=== PATIENT | female | born 1975 | race Caucasian/White ===

== ENCOUNTER 2017-04-27 16:43 | Inpatient (IN) | payer MEDICARE, OTHER ==
[~2017-04-27] VITALS: Ht 172.7 cm; Wt 43.2 kg
[~2017-04-27 16:43] MED LIST: LEVO750T31 PO; PHEN100T82 PO
[2017-04-27 20:00] VITALS: BP 110/78
[2017-04-27 23:00] VITALS: BP 111/79
[2017-04-27] MEDS ORDERED: ALPR0.5T PO (23:13)
[2017-04-27] MEDS ORDERED: BACL20TA PO (23:16)
[2017-04-27] MEDS ORDERED: DIME240C PO (23:16)
[2017-04-27] MEDS ORDERED: GENT100P4 IV (23:16)
[2017-04-27] MEDS ORDERED: [UNRECOGNIZED DRUG - CODE] SQ (23:17)
[2017-04-27] MEDS ORDERED: LORA10TA3 PO (23:21)
[2017-04-27] MEDS ORDERED: levaquin IV (23:21)
[2017-04-27] MEDS ORDERED: PRED1TAB3 PO (23:21)
[2017-04-27] MEDS ORDERED: TOLT2CAP PO (23:21)
[2017-04-27] MEDS ORDERED: ENOXAPARIN 40 MG/0.4 ML SYRINGE. SQ SCH (23:45)
[2017-04-27] MEDS ORDERED: ZOLPIDEM 5 MG TABLET. PO PRN (23:45)
[2017-04-27] MEDS ORDERED: MAG HYDROX/ALUMINUM HYD/SIMETH 30 ML ORAL.SUSP PO PRN (23:45)
[2017-04-27] MEDS ORDERED: PROCHLORPERAZINE 10 MG/2 ML VIAL. IV PRN (23:45)
--- NOTE | 2017-04-28 01:09 | HP ---
ADMIT DATE: 04/27/2017 CHIEF COMPLAINT: Complicated urinary tract infection, decubitus ulcers. HISTORY OF PRESENT ILLNESS: The patient is a 41-year-old woman with chronic progressive MS and indwelling Shafer catheter who was found with UTI last week with both Citrobacter and Enterobacter and was started on antibiotics. Unfortunately, the UTI was accompanied by a urinary leak around her Shafer causing decubitus ulcers especially in conjunction with temporary diarrhea. She now has significant ulcers for which she has been transferred to [facility] for further wound care. Her catheter was actually changed on Wednesday, when she presented to [facility]. Typically, she has monthly Shafer catheter changes. She is interested in obtaining a suprapubic catheter to facilitate her mobility somewhat. PAST MEDICAL HISTORY: Multiple sclerosis x 8 years, indwelling Shafer catheter with frequent UTIs, heterozygous Factor V Leiden mutation. FAMILY HISTORY: Positive for factor V Leiden on her paternal side. SOCIAL HISTORY: Lives with her common-law . She has two teenage children of 14 and 17. Son who is typically taking care of her is currently absent. Smokes tobacco about half a pack a day. Denies any alcohol or drugs. ALLERGIES: No known drug allergies. MEDICATIONS: MAR reconciled with home medications. REVIEW OF SYSTEMS: Positive for dysuria and leakage around the Shafer prior to admission to [facility]. Symptoms are now better controlled. Denies any pain. Does have decubitus ulcers, which are currently covered. Denies any other new issues. PHYSICAL EXAMINATION: VITAL SIGNS: From today show a blood pressure of 111/79, heart rate of 74, respiratory rate at 16. She is afebrile. GENERAL: This is a cachectic 41-year-old woman, awake, alert, in no acute distress. HEENT: Shows no scleral icterus. Oral mucosa is pink and moist. Dentition very poor. NECK: Supple. LUNGS: Clear bilaterally. HEART: Regular rate and rhythm. ABDOMEN: Cachectic, positive bowel sounds. EXTREMITIES: Show no edema. Large coccyx ulcer covered with Tegaderm. LABORATORY DATA: CBC with a WBC of 11.1, hemoglobin of 12.1, platelets of 335, BUN and creatinine of 15 and 0.6. Electrolytes within normal limits. LFTs normal. ASSESSMENT AND PLAN: The patient is a 41-year-old woman with multiple sclerosis, malnutrition, chronic indwelling Shafer with recurrent urinary tract infections and now relatively no pressure ulcers. She has been transferred here to receive wound care. A consult with wound team has been obtained. For her urinary tract infection, she had been started on Levaquin as well as gentamicin. We will obtain ID consult. Continue medications for the time being. We will have to get the final culture report and sensitivity from [facility] as well. For multiple sclerosis, she will be continued on baclofen p.r.n. She also takes ___ 250 mg b.i.d. We will continue medications here. The patient has a factor V Leiden for which she actually has never been on any medications. She does not have a personal history of DVT and with her chronic inactivity, I do not believe her risk is necessarily higher than normal population. However, in the settings of any surgeries or interventions, she should be cautiously anticoagulated. She has DVT prophylaxis with Lovenox for now. The patient also has Xanax and Cymbalta for depression and anxiety. We will continue the medications here. CAREY HERRERA MD DR: SAM/ronit JOB#: [id number] / [id number] ESTEBAN
[2017-04-28] MEDS: POTASSIUM CL 20MEQ-0.45% NACL 1,000 ML IV SCH ×2 (01:24→21:40)
[2017-04-28] MEDS: oxyCODONE IR 5 MG TABLET PO PRN (01:25)
[2017-04-28] MEDS: ENOXAPARIN 30 MG/0.3 ML SYRINGE. SQ SCH ×4 (01:25→21:10)
[2017-04-28 03:00] VITALS: BP 104/68
[2017-04-28 07:00] VITALS: BP 112/70
[2017-04-28 07:43] LABS: BASO # 0.1 x10^3/uL (0.0-0.2); BASO % 1 % (0-3); EOS % 1 % (0-3); HEMATOCRIT 36.3 % (36.0-47.0); HEMOGLOBIN 11.6 g/dL (12.0-15.5); LYMPH # 1.3 x10^3/uL (1.0-4.8); LYMPH % 14 % (24-48); MEAN CORPUSCULAR HEMOGLOBIN 24 pg (25-35); MEAN CORPUSCULAR HGB CONC 32 g/dL (31-37); MEAN CORPUSCULAR VOLUME 75 fL (79-100); MONO % 7 % (0-9); NEUT % 78 % (31-73); PLATELET COUNT 289 x10^3/uL (140-400); RED BLOOD COUNT 4.81 x10^6/uL (3.50-5.40); RED CELL DISTRIBUTION WIDTH 18.4 % (11.5-14.5); WHITE BLOOD COUNT 9.5 x10^3/uL (4.0-11.0)
[2017-04-28 08:09] LABS: ALBUMIN 2.9 g/dL (3.4-5.0); ALBUMIN/GLOBULIN RATIO 0.8 (1.0-1.7); CALCIUM 8.3 mg/dL (8.5-10.1); CREATININE 0.5 mg/dL (0.6-1.0); GFR 134.7; POTASSIUM 3.5 mmol/L (3.5-5.1); TOTAL BILIRUBIN 0.2 mg/dL (0.2-1.0); TOTAL PROTEIN 6.4 g/dL (6.4-8.2)
[2017-04-28] MEDS ORDERED: [UNRECOGNIZED DRUG - OTHER] IV SCH (09:00)
[2017-04-28] MEDS ORDERED: SODIUM CHLORIDE IV SCH (09:00)
[2017-04-28] MEDS ORDERED: GENTAMICIN IV SCH (09:00)
[2017-04-28] MEDS: NON FORMULARY ITEM (Dimethyl Fumarate (Tecfidera) 240 MG) PO SCH ×2 (09:45→21:40)
[2017-04-28] MEDS: GENTAMICIN SULFATE 320 MG in IV NORMAL SALINE 100ML 100 ML IV SCH (09:46)
[2017-04-28] MEDS: OXYBUTYNIN CHLORIDE 5 MG TABLET PO SCH ×2 (09:46→21:08)
[2017-04-28] MEDS: SENNOSIDES/DOCUSATE 8.6/50MG TABLET. PO SCH (09:47)
[2017-04-28] MEDS: predniSONE 1 MG TABLET PO SCH (09:47)
[2017-04-28] MEDS: CETIRIZINE HCL 10 MG TABLET. PO SCH (09:47)
[2017-04-28] MEDS: BACLOFEN 10 MG TABLET. PO SCH ×3 (09:47→21:08)
[2017-04-28] MEDS: ALPRAZolam 0.5 MG TABLET PO SCH ×2 (09:48→21:08)
--- NOTE | 2017-04-28 10:53 | PDOC ---
PROGRESS NOTES Chief Complaint Chief Complaint Complicated UTI Decubitus ulcers ASSESSMENT AND PLAN: 1. UTI: Klebsiella, Enterobacter by verbal report from [facility]; awaiting final report. cont Abx (levaquin, gent) for now. ID consult pending 2. Chronic indwelling Shafer: pt wishes eval for suprapubic cath. consult to Dr Bishop when he returns 3. Decubiti: 2/2 immobility and UTI/Shafer leakage. wound care consult 4. MS: chronic progressive; contunue home meds 5. Factor V Leiden trait: never had DVT/PE. lovenox prophylaxis 6. malnutrition: severe. nutrition consult 7. Depression: cont home Cymbalta, Xanax History of Present Illness History of Present Illness feels ok this AM, poor sleep last night Vitals Vitals Vital Signs Date Time Temp Pulse Resp B/P (MAP) Pulse Ox O2 Delivery O2 Flow Rate FiO2 04/28/17 07:00 98.3 89 20 112/70 (84) 83 Room Air 98.3 Physical Exam General: Alert, Oriented X3, Cooperative, No acute distress Heart: Regular rate Lungs: Clear Abdomen: Normal bowel sounds, No tenderness Extremities: No edema, Other (+clubbing) Skin: Other (sacral decub) Labs LABS Laboratory Tests Test 04/28/17 07:05 White Blood Count 9.5 x10^3/uL (4.0-11.0) Red Blood Count 4.81 x10^6/uL (3.50-5.40) Hemoglobin 11.6 g/dL (12.0-15.5) Hematocrit 36.3 % (36.0-47.0) Mean Corpuscular Volume 75 fL (79-100) Mean Corpuscular Hemoglobin 24 pg (25-35) Mean Corpuscular Hemoglobin Concent 32 g/dL (31-37) Red Cell Distribution Width 18.4 % (11.5-14.5) Platelet Count 289 x10^3/uL (140-400) Neutrophils (%) (Auto) 78 % (31-73) Lymphocytes (%) (Auto) 14 % (24-48) Monocytes (%) (Auto) 7 % (0-9) Eosinophils (%) (Auto) 1 % (0-3) Basophils (%) (Auto) 1 % (0-3) Neutrophils # (Auto) 7.4 x10^3uL (1.8-7.7) Lymphocytes # (Auto) 1.3 x10^3/uL (1.0-4.8) Monocytes # (Auto) 0.7 x10^3/uL (0.0-1.1) Eosinophils # (Auto) 0.1 x10^3/uL (0.0-0.7) Basophils # (Auto) 0.1 x10^3/uL (0.0-0.2) Sodium Level 142 mmol/L (136-145) Potassium Level 3.5 mmol/L (3.5-5.1) Chloride Level 107 mmol/L (98-107) Carbon Dioxide Level 28 mmol/L (21-32) Anion Gap 7 (6-14) Blood Urea Nitrogen 9 mg/dL (7-20) Creatinine 0.5 mg/dL (0.6-1.0) Estimated GFR (Cockcroft-Gault) 134.7 BUN/Creatinine Ratio 18 (6-20) Glucose Level 75 mg/dL (70-99) Calcium Level 8.3 mg/dL (8.5-10.1) Total Bilirubin 0.2 mg/dL (0.2-1.0) Aspartate Amino Transf (AST/SGOT) 12 U/L (15-37) Alanine Aminotransferase (ALT/SGPT) 13 U/L (14-59) Alkaline Phosphatase 45 U/L (46-116) Total Protein 6.4 g/dL (6.4-8.2) Albumin 2.9 g/dL (3.4-5.0) Albumin/Globulin Ratio 0.8 (1.0-1.7) CAREY HERRERA MD Apr 28, 2017 10:53
[2017-04-28 11:00] VITALS: BP 120/77
[2017-04-28 15:00] VITALS: BP 106/64
[2017-04-28 19:00] VITALS: BP 93/67
--- NOTE | 2017-04-28 19:23 | ACF ---
Admission Forms Criteria URINARY COMPLICATIONS Clinical Indications for Inpatient Care (Place 'X' for any and all applicable criteria): Ongoing inpatient care may be indicated for urinary complications with ANY ONE of the following: [X]I. Urinary tract infection requiring inpatient care as indicated by ANY ONE of the following(8)(19)(20): [ ]a) Severe symptoms (eg, high fever, severe pain) [ ]b) Vomiting or dehydration requiring ongoing inpatient care [X]c) IV antibiotic needs that cannot be managed at lower level of care [ ]d) Hemodynamic instability [ ]e) Obstruction of collecting system by stone or tumor [ ]II. Urinary retention requiring drainage or surgery (3)(4)(5)(17)(18) [ ]III. Renal failure (Use Renal Failure Criteria for further information.) [ ]IV. Oliguria(30) [ ]V. Post obstructive diuresis requiring close monitoring of urine output and intravenous compensation for excessive fluid losses(33) Extended stay beyond goal length of stay for primary condition may be needed until ALL of the following are present(3)(4)(5)(8): [ ]a) Renal function (creatinine) at baseline, or daily decreases in creatinine consistent with renal function return [ ]b) Voiding adequately or with urinary catheter or percutaneous suprapubic tube and management regimen in place that is performable at lower level of care. [ ]c) Urine output adequate [ ]d) Fever absent or resolving [ ]e) Infection absent or treatable at next level of care The original [employer] content created by [employer] has been revised. The portions of the content which have been revised are identified through the use of italic text or in bold, and [facility] has neither reviewed nor approved the modified material. All other unmodified content is copyright [facility] Please see references footnoted in the original [facility] edition 2016 Admission Criteria Met?: Yes YAIR BURGOS Apr 28, 2017 19:23 CAREY HERRERA MD Apr 30, 2017 17:31
[2017-04-28 23:00] VITALS: BP 88/58
[2017-04-29 03:00] VITALS: BP 97/67
[2017-04-29 07:00] VITALS: BP 110/73
[2017-04-29] MEDS: CETIRIZINE HCL 10 MG TABLET. PO SCH (09:00)
[2017-04-29] MEDS: BACLOFEN 10 MG TABLET. PO SCH ×3 (09:21→20:12)
[2017-04-29] MEDS: ALPRAZolam 0.5 MG TABLET PO SCH ×2 (09:21→20:12)
[2017-04-29] MEDS: GENTAMICIN SULFATE 320 MG in IV NORMAL SALINE 100ML 100 ML IV SCH (09:21)
[2017-04-29] MEDS: predniSONE 1 MG TABLET PO SCH (09:21)
[2017-04-29] MEDS: OXYBUTYNIN CHLORIDE 5 MG TABLET PO SCH ×2 (09:22→20:12)
[2017-04-29] MEDS: SENNOSIDES/DOCUSATE 8.6/50MG TABLET. PO SCH (09:22)
[2017-04-29] MEDS: NON FORMULARY ITEM (Dimethyl Fumarate (Tecfidera) 240 MG) PO SCH ×2 (09:28→22:13)
[2017-04-29 11:00] VITALS: BP 83/59
[2017-04-29] MEDS ORDERED: GENTAMICIN RANDOM LEVEL. MC ONE ×2 (13:45→21:00)
[2017-04-29] MEDS: GENTAMICIN PER PHARMACY. MC PRN (13:46)
[2017-04-29 15:00] VITALS: BP 106/72
--- NOTE | 2017-04-29 16:36 | PDOC ---
PROGRESS NOTES Chief Complaint Chief Complaint Complicated UTI Decubitus ulcers ASSESSMENT AND PLAN: 1. UTI: Klebsiella, Enterobacter by verbal report from [facility]; awaiting final report. cont Abx (levaquin, gent) for now. ID consult pending 2. Chronic indwelling Shafer: pt wishes eval for suprapubic cath. consult to Dr Bishop 3. Decubiti: 2/2 immobility and UTI/Shafer leakage. wound care consult pending ! 4. MS: chronic progressive; contunue home meds 5. Factor V Leiden trait: never had DVT/PE. lovenox prophylaxis 6. Malnutrition: severe. nutrition consult. supplements 7. Depression: cont home Cymbalta, Xanax History of Present Illness History of Present Illness feels better, good appetite and po intake Vitals Vitals Vital Signs Date Time Temp Pulse Resp B/P (MAP) Pulse Ox O2 Delivery O2 Flow Rate FiO2 04/29/17 15:00 97.5 71 18 106/72 (83) 96 Room Air 97.5 Physical Exam General: Alert, Oriented X3, Cooperative, No acute distress Heart: Regular rate Lungs: Clear Abdomen: Normal bowel sounds, No tenderness Extremities: No edema, Other (+clubbing) Skin: Other (sacral decub) Comment Review of Relevant I have reviewed the following items lupe (where applicable) has been applied. Labs Laboratory Tests Test 04/28/17 07:05 04/28/17 10:15 White Blood Count 9.5 x10^3/uL (4.0-11.0) Red Blood Count 4.81 x10^6/uL (3.50-5.40) Hemoglobin 11.6 g/dL (12.0-15.5) Hematocrit 36.3 % (36.0-47.0) Mean Corpuscular Volume 75 fL (79-100) Mean Corpuscular Hemoglobin 24 pg (25-35) Mean Corpuscular Hemoglobin Concent 32 g/dL (31-37) Red Cell Distribution Width 18.4 % (11.5-14.5) Platelet Count 289 x10^3/uL (140-400) Neutrophils (%) (Auto) 78 % (31-73) Lymphocytes (%) (Auto) 14 % (24-48) Monocytes (%) (Auto) 7 % (0-9) Eosinophils (%) (Auto) 1 % (0-3) Basophils (%) (Auto) 1 % (0-3) Neutrophils # (Auto) 7.4 x10^3uL (1.8-7.7) Lymphocytes # (Auto) 1.3 x10^3/uL (1.0-4.8) Monocytes # (Auto) 0.7 x10^3/uL (0.0-1.1) Eosinophils # (Auto) 0.1 x10^3/uL (0.0-0.7) Basophils # (Auto) 0.1 x10^3/uL (0.0-0.2) Sodium Level 142 mmol/L (136-145) Potassium Level 3.5 mmol/L (3.5-5.1) Chloride Level 107 mmol/L (98-107) Carbon Dioxide Level 28 mmol/L (21-32) Anion Gap 7 (6-14) Blood Urea Nitrogen 9 mg/dL (7-20) Creatinine 0.5 mg/dL (0.6-1.0) Estimated GFR (Cockcroft-Gault) 134.7 BUN/Creatinine Ratio 18 (6-20) Glucose Level 75 mg/dL (70-99) Calcium Level 8.3 mg/dL (8.5-10.1) Total Bilirubin 0.2 mg/dL (0.2-1.0) Aspartate Amino Transf (AST/SGOT) 12 U/L (15-37) Alanine Aminotransferase (ALT/SGPT) 13 U/L (14-59) Alkaline Phosphatase 45 U/L (46-116) Total Protein 6.4 g/dL (6.4-8.2) Albumin 2.9 g/dL (3.4-5.0) Albumin/Globulin Ratio 0.8 (1.0-1.7) Nasal Screen MRSA (PCR) Negative (Negative) Microbiology 04/28/17 Gram Stain - Final, Complete Medications Current Medications Potassium Chloride/Sodium Chloride 1,000 ml @ 50 mls/hr Q20H IV Last administered on 04/28/17t 21:40; Start 04/28/17 at 00:00 Prochlorperazine Edisylate (Compazine) 10 mg PRN Q8HRS PRN IV NAUSEA/VOMITING; Start 04/27/17 at 23:45 Al Hydroxide/Mg Hydroxide (Mylanta Plus Xs) 30 ml PRN Q3HRS PRN PO HEARTBURN / GAS; Start 04/27/17 at 23:45 Zolpidem Tartrate (Ambien) 5 mg PRN QHS PRN PO INSOMNIA, MAY REPEAT IN 1HR; Start 04/27/17 at 23:45 Oxycodone HCl (Roxicodone) 5 mg PRN Q4HRS PRN PO SEVERE PAIN Last administered on 04/28/17 01:25; Start 04/27/17 at 23:45 Senna/Docusate Sodium (Senna Plus) 2 tab DAILY PO Last administered on 09:22; Start 04/28/17 at 09:00 Enoxaparin Sodium (Lovenox 40mg Syringe) 30 mg Q24H SQ ; Start 04/27/17 at 23:45 ; Status UNV Alprazolam (Xanax) 0.5 mg BID PO Last administered on 04/29/17 09:21; Start at 09:00 Levofloxacin (Levaquin) 750 mg DAILY07 PO Last administered on 04/29/17 06:31 ; Start 04/28/17 at 07:00 Prednisone (Prednisone) 1 mg DAILY PO Last administered on 04/29/17 09:21; Start 04/28/17 at 09:00 Baclofen (Lioresal) 20 mg TID PO Last administered on 04/29/17 14:09; Start at 09:00 Non-Formulary Medication 240 mg BID PO Last administered on 04/29/17 09:28; Start 04/28/17 at 09:00 Non-Formulary Medication 320 mg DAILY IV ; Start 04/28/17 at 09:00; Status UNV Cetirizine HCl (ZyrTEC) 10 mg DAILY PO Last administered on 04/28/17 09:47; Start 04/28/17 at 09:00 Oxybutynin Chloride (Ditropan) 5 mg BID PO Last administered on 04/29/17 09:22 ; Start 04/28/17 at 09:00 Enoxaparin Sodium (Lovenox 30mg Syringe) 30 mg QHS SQ ; Start 04/28/17 at 00:30 Gentamicin Sulfate 320 mg/ Sodium Chloride 108 ml @ 108 mls/hr Q24H IV Last administered on 04/29/17 09:21; Start 04/28/17 at 09:00 Gentamicin Sulfate 1 each 1X ONCE MC ; Start 04/29/17 at 13:45; Stop 04/29/17 at 13:46; Status DC Gentamicin Sulfate 1 each PRN DAILY PRN MC SEE COMMENTS Last administered on 13:46; Start 04/29/17 at 13:45 Gentamicin Sulfate 1 each 1X ONCE MC ; Start 04/29/17 at 21:00; Stop 04/29/17 at 21:01 Active Scripts Active Pyridium (Phenazopyridine Hcl) 100 Mg Tablet 100 Mg PO TID Levaquin (Levofloxacin) 750 Mg Tablet 1 Tab PO DAILY 1 tablet by mouth once daily for 5 days to treat infection. First dose given in the emergency department. Reported Detrol La (Tolterodine Tartrate) 2 Mg Cap.er.24h 1 Cap PO DAILY Prednisone 1 Mg Tablet 1 Mg PO DAILY Loratadine 10 Mg Tablet 1 Tab PO DAILY [levaquin] 750 Mg IV DAILY Heparin 5,000 Unit/500 ml-Ns (Heparin Sod,Porcine/0.9 % NaCl) 5,000 Unit/500 Ml Iv.soln 5,000 Unit SQ Q8HRS Gentamicin 100 Mg/Ns 100 Ml (Gentamicin In Nacl, Iso-Osm) 100 Mg/100 Ml Piggyback 320 Mg IV DAILY Tecfidera (Dimethyl Fumarate) 240 Mg Capsule.dr 240 Mg PO BID Baclofen 20 Mg Tablet 1 Tab PO TID Xanax (Alprazolam) 0.5 Mg Tablet 1 Tab PO BID Vitals/I & O Vital Sign - Last 24 Hours 04/28/17 04/28/17 04/28/17 04/29/17 19:00 20:24 23:00 03:00 Temp 97.7 96.4 98.1 97.7 96.4 98.1 Pulse 107 77 71 Resp 18 16 18 B/P (MAP) 93/67 (76) 88/58 (68) 97/67 (77) Pulse Ox 94 93 94 O2 Delivery Room Air Room Air Room Air Room Air 04/29/17 04/29/17 04/29/17 04/29/17 07:00 08:00 11:00 15:00 Temp 97.9 97.6 97.5 97.9 97.6 97.5 Pulse 78 93 71 Resp 18 18 18 B/P (MAP) 110/73 (85) 83/59 (67) 106/72 (83) Pulse Ox 89 96 96 O2 Delivery Room Air Room Air Room Air Room Air Intake and Output 04/28/17 04/28/17 04/29/17 15:00 23:00 07:00 Intake Total 513 ml 256 ml Output Total 1775 ml 1050 ml Balance -1262 ml -794 ml Nutrition Consultation Dietary Evaluation: Recommendations by RD: Add supplement feedings Comments: boost plus tid REC mvi q day and vit c 500 mg bid Expected Outcomes/Goals: to meet > 75% est nutr needs Malnutrition Findings: Body Fat Depletion (Non Severe: Mod to Severe Weight Status: Underweight CAREY HERRERA MD Apr 29, 2017 16:36
[2017-04-29] MEDS: POTASSIUM CL 20MEQ-0.45% NACL 1,000 ML IV SCH (17:33)
[2017-04-29 19:20] VITALS: BP 100/58
[2017-04-29 23:18] VITALS: BP 118/75
[2017-04-30 03:28] VITALS: BP 91/59
[2017-04-30 07:00] VITALS: BP 92/65
[2017-04-30] MEDS: GENTAMICIN PER PHARMACY. MC PRN (07:08)
--- NOTE | 2017-04-30 08:31 | PDOC ---
PROGRESS NOTES Chief Complaint Chief Complaint Complicated UTI Decubitus ulcers ASSESSMENT AND PLAN: 1. UTI: Klebsiella, Enterobacter by verbal report from [facility]; awaiting final report. cont Abx (levaquin, gent) for now. 2. Chronic indwelling Shafer: pt wishes eval for suprapubic cath. consult to Dr Bishop: rec. vesicotomy rather than cath; refer to specialists at [facility] on O/ P basis 3. Decubiti: 2/2 immobility and UTI/Shafer leakage. wound care consult appreciated 4. MS: chronic progressive; continue home meds 5. Factor V Leiden trait: never had DVT/PE. lovenox prophylaxis 6. Malnutrition: severe. nutrition consult. supplements 7. Depression: cont home Cymbalta, Xanax 8. Dispo: home w/home health History of Present Illness History of Present Illness in good spirits, no pain c/o Vitals Vitals Vital Signs Date Time Temp Pulse Resp B/P (MAP) Pulse Ox O2 Delivery O2 Flow Rate FiO2 04/30/17 07:00 97.7 88 14 92/65 (74) 96 Room Air 97.7 Physical Exam General: Alert, Oriented X3, Cooperative, No acute distress Heart: Regular rate Lungs: Clear Abdomen: Normal bowel sounds, No tenderness Extremities: No edema, Other (+clubbing) Skin: Other (sacral decub) Labs LABS Laboratory Tests Test 04/29/17 20:40 Random Gentamicin Level 2.1 mcg/mL Nutrition Consultation Dietary Evaluation: Recommendations by RD: Add supplement feedings Comments: boost plus tid REC mvi q day and vit c 500 mg bid Expected Outcomes/Goals: to meet > 75% est nutr needs Malnutrition Findings: Body Fat Depletion (Non Severe: Mod to Severe Weight Status: Underweight CAREY HERRERA MD Apr 30, 2017 08:31
[2017-04-30] MEDS: ALPRAZolam 0.5 MG TABLET PO SCH ×2 (09:00→21:12)
[2017-04-30] MEDS: CETIRIZINE HCL 10 MG TABLET. PO SCH (09:00)
[2017-04-30] MEDS: GENTAMICIN SULFATE 320 MG in IV NORMAL SALINE 100ML 100 ML IV SCH (09:00)
[2017-04-30] MEDS: NON FORMULARY ITEM (Dimethyl Fumarate (Tecfidera) 240 MG) PO SCH ×2 (09:00→21:12)
[2017-04-30] MEDS: SENNOSIDES/DOCUSATE 8.6/50MG TABLET. PO SCH (09:00)
[2017-04-30] MEDS: BACLOFEN 10 MG TABLET. PO SCH ×3 (09:00→21:12)
[2017-04-30] MEDS: predniSONE 1 MG TABLET PO SCH (09:00)
[2017-04-30] MEDS: OXYBUTYNIN CHLORIDE 5 MG TABLET PO SCH ×2 (09:00→21:12)
[2017-04-30 11:00] VITALS: BP 85/62
[2017-04-30 12:09] LABS: BASO # 0.1 x10^3/uL (0.0-0.2); BASO % 1 % (0-3); EOS % 1 % (0-3); HEMATOCRIT 37.8 % (36.0-47.0); HEMOGLOBIN 12.2 g/dL (12.0-15.5); LYMPH # 1.3 x10^3/uL (1.0-4.8); LYMPH % 12 % (24-48); MEAN CORPUSCULAR HEMOGLOBIN 24 pg (25-35); MEAN CORPUSCULAR HGB CONC 32 g/dL (31-37); MEAN CORPUSCULAR VOLUME 75 fL (79-100); MONO % 9 % (0-9); NEUT % 77 % (31-73); PLATELET COUNT 269 x10^3/uL (140-400); RED BLOOD COUNT 5.04 x10^6/uL (3.50-5.40); RED CELL DISTRIBUTION WIDTH 18.2 % (11.5-14.5); WHITE BLOOD COUNT 10.8 x10^3/uL (4.0-11.0)
[2017-04-30 12:20] LABS: CALCIUM 8.4 mg/dL (8.5-10.1); CREATININE 0.6 mg/dL (0.6-1.0); GFR 109.1; POTASSIUM 3.8 mmol/L (3.5-5.1); PROTHROMBIN TIME PATIENT 12.8 SEC (11.7-14.0)
[2017-04-30] MEDS: POTASSIUM CL 20MEQ-0.45% NACL 1,000 ML IV SCH (14:10)
--- NOTE | 2017-04-30 14:15 | PDOC ---
PROGRESS NOTES Subjective Subjective Pt. with chronic indwelling martini for MS Objective Objective Vital Signs Date Time Temp Pulse Resp B/P (MAP) Pulse Ox O2 Delivery O2 Flow Rate FiO2 04/30/17 11:00 97.7 114 16 85/62 (70) 96 Room Air 97.7 Intake and Output 04/30/17 07:00 Intake Total 500 ml Output Total 550 ml Balance -50 ml Intake Oral 500 ml Output Urine Total 550 ml Physical Exam Physical Exam martini to gravity-urine yellow Plan Plan of Care I talked with pt. regarding options for her bladder drainage. I would recommend having pt. see Dr. Mcgill or Dr. Loya or Dr. Meléndez at urology for consideration of ileovesicostomy Comment Review of Relevant I have reviewed the following items lupe (where applicable) has been applied. Labs Laboratory Tests Test 04/29/17 20:40 04/30/17 11:55 Random Gentamicin Level 2.1 mcg/mL White Blood Count 10.8 x10^3/uL (4.0-11.0) Red Blood Count 5.04 x10^6/uL (3.50-5.40) Hemoglobin 12.2 g/dL (12.0-15.5) Hematocrit 37.8 % (36.0-47.0) Mean Corpuscular Volume 75 fL (79-100) Mean Corpuscular Hemoglobin 24 pg (25-35) Mean Corpuscular Hemoglobin Concent 32 g/dL (31-37) Red Cell Distribution Width 18.2 % (11.5-14.5) Platelet Count 269 x10^3/uL (140-400) Neutrophils (%) (Auto) 77 % (31-73) Lymphocytes (%) (Auto) 12 % (24-48) Monocytes (%) (Auto) 9 % (0-9) Eosinophils (%) (Auto) 1 % (0-3) Basophils (%) (Auto) 1 % (0-3) Neutrophils # (Auto) 8.4 x10^3uL (1.8-7.7) Lymphocytes # (Auto) 1.3 x10^3/uL (1.0-4.8) Monocytes # (Auto) 1.0 x10^3/uL (0.0-1.1) Eosinophils # (Auto) 0.1 x10^3/uL (0.0-0.7) Basophils # (Auto) 0.1 x10^3/uL (0.0-0.2) Prothrombin Time 12.8 SEC (11.7-14.0) Prothromb Time International Ratio 1.0 (0.8-1.1) Sodium Level 140 mmol/L (136-145) Potassium Level 3.8 mmol/L (3.5-5.1) Chloride Level 105 mmol/L (98-107) Carbon Dioxide Level 28 mmol/L (21-32) Anion Gap 7 (6-14) Blood Urea Nitrogen 16 mg/dL (7-20) Creatinine 0.6 mg/dL (0.6-1.0) Estimated GFR (Cockcroft-Gault) 109.1 Glucose Level 115 mg/dL (70-99) Calcium Level 8.4 mg/dL (8.5-10.1) Laboratory Tests Test 04/29/17 20:40 04/30/17 11:55 Random Gentamicin Level 2.1 mcg/mL White Blood Count 10.8 x10^3/uL (4.0-11.0) Red Blood Count 5.04 x10^6/uL (3.50-5.40) Hemoglobin 12.2 g/dL (12.0-15.5) Hematocrit 37.8 % (36.0-47.0) Mean Corpuscular Volume 75 fL (79-100) Mean Corpuscular Hemoglobin 24 pg (25-35) Mean Corpuscular Hemoglobin Concent 32 g/dL (31-37) Red Cell Distribution Width 18.2 % (11.5-14.5) Platelet Count 269 x10^3/uL (140-400) Neutrophils (%) (Auto) 77 % (31-73) Lymphocytes (%) (Auto) 12 % (24-48) Monocytes (%) (Auto) 9 % (0-9) Eosinophils (%) (Auto) 1 % (0-3) Basophils (%) (Auto) 1 % (0-3) Neutrophils # (Auto) 8.4 x10^3uL (1.8-7.7) Lymphocytes # (Auto) 1.3 x10^3/uL (1.0-4.8) Monocytes # (Auto) 1.0 x10^3/uL (0.0-1.1) Eosinophils # (Auto) 0.1 x10^3/uL (0.0-0.7) Basophils # (Auto) 0.1 x10^3/uL (0.0-0.2) Prothrombin Time 12.8 SEC (11.7-14.0) Prothromb Time International Ratio 1.0 (0.8-1.1) Sodium Level 140 mmol/L (136-145) Potassium Level 3.8 mmol/L (3.5-5.1) Chloride Level 105 mmol/L (98-107) Carbon Dioxide Level 28 mmol/L (21-32) Anion Gap 7 (6-14) Blood Urea Nitrogen 16 mg/dL (7-20) Creatinine 0.6 mg/dL (0.6-1.0) Estimated GFR (Cockcroft-Gault) 109.1 Glucose Level 115 mg/dL (70-99) Calcium Level 8.4 mg/dL (8.5-10.1) Microbiology 04/28/17 Gram Stain - Final, Complete Medications Current Medications Potassium Chloride/Sodium Chloride 1,000 ml @ 50 mls/hr Q20H IV Last administered on 04/30/17 14:10; Start 04/28/17 at 00:00 Prochlorperazine Edisylate (Compazine) 10 mg PRN Q8HRS PRN IV NAUSEA/VOMITING; Start 04/27/17 at 23:45 Al Hydroxide/Mg Hydroxide (Mylanta Plus Xs) 30 ml PRN Q3HRS PRN PO HEARTBURN / GAS; Start 04/27/17 at 23:45 Zolpidem Tartrate (Ambien) 5 mg PRN QHS PRN PO INSOMNIA, MAY REPEAT IN 1HR; Start 04/27/17 at 23:45 Oxycodone HCl (Roxicodone) 5 mg PRN Q4HRS PRN PO SEVERE PAIN Last administered on 04/28/17 01:25; Start 04/27/17 at 23:45 Senna/Docusate Sodium (Senna Plus) 2 tab DAILY PO Last administered on 09:00; Start 04/28/17 at 09:00 Enoxaparin Sodium (Lovenox 40mg Syringe) 30 mg Q24H SQ ; Start 04/27/17 at 23:45 ; Status UNV Alprazolam (Xanax) 0.5 mg BID PO Last administered on 04/29/17 20:12; Start at 09:00 Levofloxacin (Levaquin) 750 mg DAILY07 PO Last administered on 04/30/17 07:00 ; Start 04/28/17 at 07:00 Prednisone (Prednisone) 1 mg DAILY PO Last administered on 04/30/17 09:00; Start 04/28/17 at 09:00 Baclofen (Lioresal) 20 mg TID PO Last administered on 04/30/17 14:11; Start at 09:00 Non-Formulary Medication 240 mg BID PO Last administered on 04/30/17 09:00; Start 04/28/17 at 09:00 Non-Formulary Medication 320 mg DAILY IV ; Start 04/28/17 at 09:00; Status UNV Cetirizine HCl (ZyrTEC) 10 mg DAILY PO Last administered on 04/28/17 09:47; Start 04/28/17 at 09:00 Oxybutynin Chloride (Ditropan) 5 mg BID PO Last administered on 04/30/17 09:00 ; Start 04/28/17 at 09:00 Enoxaparin Sodium (Lovenox 30mg Syringe) 30 mg QHS SQ ; Start 04/28/17 at 00:30 Gentamicin Sulfate 320 mg/ Sodium Chloride 108 ml @ 108 mls/hr Q24H IV Last administered on 04/30/17 09:00; Start 04/28/17 at 09:00 Gentamicin Sulfate 1 each 1X ONCE MC ; Start 04/29/17 at 13:45; Stop 04/29/17 at 13:46; Status DC Gentamicin Sulfate 1 each PRN DAILY PRN MC SEE COMMENTS Last administered on 07:08; Start 04/29/17 at 13:45 Gentamicin Sulfate 1 each 1X ONCE MC Last administered on 04/29/17 21:00; Start 04/29/17 at 21:00; Stop 04/29/17 at 21:01; Status DC Active Scripts Active Pyridium (Phenazopyridine Hcl) 100 Mg Tablet 100 Mg PO TID Levaquin (Levofloxacin) 750 Mg Tablet 1 Tab PO DAILY 1 tablet by mouth once daily for 5 days to treat infection. First dose given in the emergency department. Reported Detrol La (Tolterodine Tartrate) 2 Mg Cap.er.24h 1 Cap PO DAILY Prednisone 1 Mg Tablet 1 Mg PO DAILY Loratadine 10 Mg Tablet 1 Tab PO DAILY [levaquin] 750 Mg IV DAILY Heparin 5,000 Unit/500 ml-Ns (Heparin Sod,Porcine/0.9 % NaCl) 5,000 Unit/500 Ml Iv.soln 5,000 Unit SQ Q8HRS Gentamicin 100 Mg/Ns 100 Ml (Gentamicin In Nacl, Iso-Osm) 100 Mg/100 Ml Piggyback 320 Mg IV DAILY Tecfidera (Dimethyl Fumarate) 240 Mg Capsule.dr 240 Mg PO BID Baclofen 20 Mg Tablet 1 Tab PO TID Xanax (Alprazolam) 0.5 Mg Tablet 1 Tab PO BID Vitals/I & O Vital Sign - Last 24 Hours 04/29/17 04/29/17 04/29/17 04/29/17 15:00 19:20 20:00 23:18 Temp 97.5 97.7 97.9 97.5 97.7 97.9 Pulse 71 90 75 Resp 18 18 18 B/P (MAP) 106/72 (83) 100/58 (72) 118/75 (89) Pulse Ox 96 95 94 O2 Delivery Room Air Room Air Room Air Room Air 04/30/17 04/30/17 04/30/17 04/30/17 03:28 07:00 08:15 11:00 Temp 97.7 97.7 97.7 97.7 97.7 97.7 Pulse 72 88 114 Resp 16 14 16 B/P (MAP) 91/59 (70) 92/65 (74) 85/62 (70) Pulse Ox 98 96 96 O2 Delivery Room Air Room Air Room Air Room Air Intake and Output 04/29/17 04/29/17 04/30/17 15:00 23:00 07:00 Intake Total 500 ml Output Total 550 ml Balance -550 ml 500 ml Nutrition Consultation Dietary Evaluation: Recommendations by RD: Add supplement feedings Comments: continue boost plus tid REC mvi q day and vit c 500 mg bid Expected Outcomes/Goals: to meet > 75% est nutr needs- met with meals/ supplements-goal ongoing Malnutrition Findings: Body Fat Depletion (Non Severe: Mod to Severe Weight Status: Underweight ALEJANDRO STRONG MD Apr 30, 2017 14:15
[2017-04-30 15:00] VITALS: BP 80/50
[2017-04-30 19:36] VITALS: BP 93/59
[2017-04-30] MEDS: ENOXAPARIN 30 MG/0.3 ML SYRINGE. SQ SCH (21:00)
[2017-04-30] MEDS: oxyCODONE IR 5 MG TABLET PO PRN (21:12)
[2017-04-30 23:11] VITALS: BP 86/52
[2017-05-01 03:20] VITALS: BP 88/55
[2017-05-01] MEDS: POTASSIUM CL 20MEQ-0.45% NACL 1,000 ML IV SCH (04:26)
--- NOTE | 2017-05-01 05:43 | CONS ---
DATE OF CONSULTATION: 04/30/2017 LOCATION: The patient is in room 426. HISTORY OF PRESENT ILLNESS: The patient is a very pleasant 41-year-old white female with history of multiple sclerosis and indwelling Shafer catheter. She gets her catheter changed once a month. She has originally got the catheter because of problems with nonhealing sacral decubitus ulcers in trying to get the urine from getting into her wounds. The patient is very debilitated from her MS. She has had problems also with UTIs. She also has heterozygous Factor V Leiden mutation. Her white count is 10.8, creatinine is 0.6. She is currently on IV antibiotics. PHYSICAL EXAMINATION: ABDOMEN: Scaphoid, flat, soft. GENITOURINARY: She has a Shafer catheter to gravity drainage, secured to the left thigh with a StatLock and the urine is grossly yellow in color. I talked with the patient concerning her bladder drainage options between indwelling Shafer catheter versus suprapubic catheter versus ileovesicostomy, and I think if we anticipate long-term need for facilitating bladder drainage, then a tubeless option such as an ileovesicostomy would be definitely worth considering; therefore, I would recommend having the patient see Dr. Alvarez or Dr. Acuna or Dr. Meléndez or Dr. Alexis at Urology for evaluation for possible ileovesicostomy for managing her bladder drainage in the future. I certainly appreciate being allowed to participate in this patient's care. ALEJANDRO STRONG MD DR: EDGARD/ronit JOB#: [id number] / [id number]
[2017-05-01 07:00] VITALS: BP 87/56
[2017-05-01] MEDS: SENNOSIDES/DOCUSATE 8.6/50MG TABLET. PO SCH (07:34)
[2017-05-01] MEDS: ALPRAZolam 0.5 MG TABLET PO SCH (08:27)
[2017-05-01] MEDS: CETIRIZINE HCL 10 MG TABLET. PO SCH (08:27)
[2017-05-01] MEDS: OXYBUTYNIN CHLORIDE 5 MG TABLET PO SCH (08:27)
[2017-05-01] MEDS: predniSONE 1 MG TABLET PO SCH (08:27)
[2017-05-01] MEDS: NON FORMULARY ITEM (Dimethyl Fumarate (Tecfidera) 240 MG) PO SCH (08:28)
[2017-05-01] MEDS: BACLOFEN 10 MG TABLET. PO SCH ×2 (08:28→14:37)
[2017-05-01 11:00] VITALS: BP 100/67
[2017-05-01] MEDS ORDERED: DOCUSATE SODIUM 100 MG CAPSULE. PO SCH (13:00)
--- NOTE | 2017-05-01 13:33 | PDOC3 ---
Discharge Summary Visit Information Date of Admission: Apr 27, 2017 Date of Discharge: May 01, 2017 Admitting Diagnosis Comment: 1. No UTI 2. Chronic indwelling Shafer: pt to ff up [facility] - per urology 3. Decubiti: 2/2 immobility and UTI/Shafer leakage. NON INFECTED 4. MS: chronic progressive; on chronic pred 5. Factor V Leiden trait: never had DVT/PE. lovenox prophylaxis 6. Malnutrition: severe. 7. Depression: NOS 8. Dispo: home w/home health Brief Hospital Course Allergies Allergies Coded Allergies Type Severity Reaction Last Updated Verified I S O L A T I O N *CONTACT* Allergy Unknown 04/28/17 Yes No Known Medication Allergies Allergy Unknown 04/28/17 Yes Vital Signs Vital Signs Date Time Temp Pulse Resp B/P (MAP) Pulse Ox O2 Delivery O2 Flow Rate FiO2 05/01/17 11:00 97.5 70 18 100/67 (78) 90 Room Air 97.5 Lab Results Laboratory Tests Test 04/29/17 20:40 04/30/17 11:55 Random Gentamicin Level 2.1 mcg/mL White Blood Count 10.8 x10^3/uL (4.0-11.0) Red Blood Count 5.04 x10^6/uL (3.50-5.40) Hemoglobin 12.2 g/dL (12.0-15.5) Hematocrit 37.8 % (36.0-47.0) Mean Corpuscular Volume 75 fL (79-100) Mean Corpuscular Hemoglobin 24 pg (25-35) Mean Corpuscular Hemoglobin Concent 32 g/dL (31-37) Red Cell Distribution Width 18.2 % (11.5-14.5) Platelet Count 269 x10^3/uL (140-400) Neutrophils (%) (Auto) 77 % (31-73) Lymphocytes (%) (Auto) 12 % (24-48) Monocytes (%) (Auto) 9 % (0-9) Eosinophils (%) (Auto) 1 % (0-3) Basophils (%) (Auto) 1 % (0-3) Neutrophils # (Auto) 8.4 x10^3uL (1.8-7.7) Lymphocytes # (Auto) 1.3 x10^3/uL (1.0-4.8) Monocytes # (Auto) 1.0 x10^3/uL (0.0-1.1) Eosinophils # (Auto) 0.1 x10^3/uL (0.0-0.7) Basophils # (Auto) 0.1 x10^3/uL (0.0-0.2) Prothrombin Time 12.8 SEC (11.7-14.0) Prothromb Time International Ratio 1.0 (0.8-1.1) Sodium Level 140 mmol/L (136-145) Potassium Level 3.8 mmol/L (3.5-5.1) Chloride Level 105 mmol/L (98-107) Carbon Dioxide Level 28 mmol/L (21-32) Anion Gap 7 (6-14) Blood Urea Nitrogen 16 mg/dL (7-20) Creatinine 0.6 mg/dL (0.6-1.0) Estimated GFR (Cockcroft-Gault) 109.1 Glucose Level 115 mg/dL (70-99) Calcium Level 8.4 mg/dL (8.5-10.1) Brief Hospital Course Ms. Cortes is a 41 old female, wheel chair bound [facility] of [place], transferred from [facility] of "UTI" chronic urinary retention, Urology consulted, pt wanted suprapubic cath, [facility] of technicalities, our service recommened [facility] ff up urology. NO UTI kelbsiella on Urine cx, Gent stopped bY Dr. Bennett, NO wound infection, pictures reviwed, no need for antibiotic. HAs current arranged RX refilll given to pt. Pt seen and examined Dw alex and RN at bedside Consults: urology Proc; none time 32 mins - going thru her meds one by one etc Discharge Information Condition at Discharge: Improved, Stable Disposition/Orders: D/C to Home w/ HH Scheduled Alprazolam (Xanax), 1 TAB PO BID, (Reported) Baclofen (Baclofen), 1 TAB PO TID, (Reported) Dimethyl Fumarate (Tecfidera), 240 MG PO BID, (Reported) Gentamicin In Nacl, Iso-Osm (Gentamicin 100 Mg/Ns 100 Ml), 320 MG IV DAILY, ( Reported) Heparin Sod,Porcine/0.9 % NaCl (Heparin 5,000 Unit/500 ml-Ns), 5,000 UNIT SQ Q8HRS, (Reported) Levofloxacin (Levaquin), 1 TAB PO DAILY Loratadine (Loratadine), 1 TAB PO DAILY, (Reported) Phenazopyridine Hcl (Pyridium), 100 MG PO TID Prednisone (Prednisone), 1 MG PO DAILY, (Reported) Tolterodine Tartrate (Detrol La), 1 CAP PO DAILY, (Reported) [levaquin], 750 MG IV DAILY, (Reported) CHRIS MCGILL MD May 01, 2017 13:33
[2017-05-01 15:00] VITALS: BP 95/60
== END 2017-05-01 17:15 | disposition home health service (06) | DRG 871 ==
LOC: 4 NORTH 20:15
PROVIDERS: ADMIT Internal Medicine Hematology & Oncology; ATTEND Internal Medicine Hematology & Oncology
DX: A41.9 Sepsis, unspecified organism (principal); E43 Unspecified severe protein-calorie malnutrition; D68.51 Activated protein C resistance; Z68.1 Body mass index [BMI] 19.9 or less, adult; T83.031A Leakage of indwelling urethral catheter, initial encounter; F17.210 Nicotine dependence, cigarettes, uncomplicated; G35 Multiple sclerosis; F32.9 Major depressive disorder, single episode, unspecified; F41.9 Anxiety disorder, unspecified; L89.159 Pressure ulcer of sacral region, unspecified stage; Y84.6 Urinary catheterization as the cause of abnormal reaction of the patient, or of later complication, without mention of misadventure at the time of the procedure; Z99.3 Dependence on wheelchair; Z87.440 Personal history of urinary (tract) infections; Z79.899 Other long term (current) drug therapy; Z79.1 Long term (current) use of non-steroidal anti-inflammatories (NSAID); Z79.2 Long term (current) use of antibiotics
CPT/HCPCS: 36415; 80048; 80053; 80170; 85027; 85610; 87071; 87075; 87205; 87641; J1580; J1650; J7512; 97110; 97530; 97535

== ENCOUNTER → 2017-05-06 | Outpatient (CLI) | payer MEDICARE, OTHER ==
[2017-05-01 15:00] VITALS: BP 95/60
[~2017-05-06] MED LIST changes: +ALPR0.5T PO; +BACL20TA PO; +DIME240C PO; +GENT100P4 IV; +LORA10TA3 PO; +PRED1TAB3 PO; +TOLT2CAP PO; +[UNRECOGNIZED DRUG - CODE] SQ; +levaquin IV
== END | disposition home or self-care (01) ==
LOC: PMGWOUND 12:18
PROVIDERS: ATTEND Emergency Medicine Undersea and Hyperbaric Medicine
DX: G35 Multiple sclerosis (principal); F32.9 Major depressive disorder, single episode, unspecified; F17.210 Nicotine dependence, cigarettes, uncomplicated; F41.9 Anxiety disorder, unspecified; Z68.1 Body mass index [BMI] 19.9 or less, adult
CPT/HCPCS: 99203; 99214

== ENCOUNTER 2017-09-22 11:51 | Inpatient (IN) | payer MEDICARE, OTHER ==
[~2017-09-22] VITALS: Ht 172.7 cm; Wt 46.7 kg
--- NOTE | 2017-09-22 14:47 | PDOC1 ---
History and Physical Date of Admission Date of Admission DATE: 09/22/17 TIME: 14:43 Identification/Chief Complaint Chief Complaint dyspnea, Problems: Source Source: Chart review, Patient History of Present Illness History of Present Illness pt admitted to [facility] on , malaise, flank pain, treated for pyelonephritis, UTI, but urine cx grew 2 organisms then dyspnea, CXR ok, then CTA angio showed no pneumonia, but small noduse, and concern for mucus plugging Mild centrilobular emphysema. she has ongoing tobaccoism, she has severe MS, marked weakness, prior sacral ulcer admit 2 months ago, Past Medical History Cardiovascular: No pertinent hx Pulmonary: No pertinent hx CENTRAL NERVOUS SYSTEM: Other (mult sclerosis) Heme/Onc: No pertinent hx Psych: Addictions Musculoskeletal: low back pain, Other (ulcer) ENT: No pertinent hx Renal/: No pertinent hx Endocrine: No pertinent hx Dermatology: No pertinent hx Para: 2 Social History Smoke: <1 pack per day ALCOHOL: rare Drugs: None Current Medications Current Medications Current Medications Alprazolam (Xanax) 0.5 mg BID PO ; Start 09/22/17 at 21:00; Status UNV Prednisone (Prednisone) 1 mg DAILY PO ; Start 09/23/17 at 09:00; Status UNV Non-Formulary Medication 1 tab TID PO ; Start 09/22/17 at 21:00; Status UNV Non-Formulary Medication 240 mg BID PO ; Start 09/22/17 at 21:00; Status UNV Non-Formulary Medication 1 tab DAILY PO ; Start 09/23/17 at 09:00; Status UNV Non-Formulary Medication 750 mg DAILY IV ; Start 09/23/17 at 09:00; Status UNV Active Scripts Active Reported Prednisone 1 Mg Tablet 1 Mg PO DAILY Loratadine 10 Mg Tablet 1 Tab PO DAILY [levaquin] 750 Mg IV DAILY Tecfidera (Dimethyl Fumarate) 240 Mg Capsule.dr 240 Mg PO BID Baclofen 20 Mg Tablet 1 Tab PO TID Xanax (Alprazolam) 0.5 Mg Tablet 1 Tab PO BID Allergies Allergies: Coded Allergies: I S O L A T I O N *CONTACT* (Verified Allergy, Unknown, 04/28/17) mrsa No Known Medication Allergies (Verified Allergy, Unknown, 04/28/17) ROS General: YES: Fatigue, Malaise, No: Chills, Night Sweats, Appetite, Other PSYCHOLOGICAL ROS: YES: Sleep disturbances, No: Anxiety, Behavioral Disorder, Concentration difficultie, Decreased libido , Depression, Disorientation, Hallucinations, Hostility, Irritablity, Memory difficulties, Mood Swings, Obsessive thoughts, Suicidal ideation, Other Eyes: No Blurry vision, No Decreased vision, No Double vision, No Dry eyes, No Excessive tearing, No Eye Pain, No Itchy Eyes, No Loss of vision, No Photophobia , No Scotomata, No Uses contacts, No Uses glasses, No Other HEENT: YES: Heacaches, No: Visual Changes, Hearing change, Nasal congestion, Nasal discharge, Oral lesions, Sinus pain, Sore Throat, Epistaxis, Sneezing, Snoring, Tinnitus, Vertigo, Vocal changes, Other Respiratory: YES: Cough, Shortness of breath, SOB with excertion, No: Hemoptysis, Orthopnea, Pleuritic Pain, Sputum Changes, Stridor, Tachypnea , Wheezing, Other Cardiovascular: No Chest Pain, No Palpitations, No Orthopnea, No Paroxysmal Noc. Dyspnea, No Edema, No Lt Headedness, No Other Gastrointestinal: Yes Nausea, Yes Abdominal Pain, No Vomiting, No Diarrhea, No Constipation, No Melena, No Hematochezia, No Other Genitourinary: No Dysuria, No Frequency, No Incontinence, No Hematuria, No Retention, No Discharge, No Urgency, No Pain, No Flank Pain, No Other, No , No , No , No , No , No , No Musculoskeletal: Yes Gait Disturbance, Yes Joint Pain, Yes Joint Stiffness, Yes Muscular Weakness Neurological: Yes Gait Disturbance, Yes Headaches, Yes Weakness, No Behavorial Changes, No Bowel/Bladder ControlChng, No Confusion, No Dizziness, No Impaired Coord/balance, No Memory Loss, No Numbness/Tingling, No Seizures, No Speech Problems, No Tremors, No Visual Changes, No Other Skin: Yes Dry Skin, No Eczema, No Hair Changes, No Lumps, No Mole Changes, No Mottling, No Nail Changes, No Pruritus, No Rash, No Skin Lesion Changes, No Other, No Acne Physical Exam General: Alert, Cooperative, mild distress HEENT: Mucous membr. moist/pink Lungs: Clear to auscultation Heart: S1S2, no gallops, no murmurs Extremities: No clubbing, No edema Skin: No significant lesion Neuro: Normal speech, Normal tone, Sensation intact Psych/Mental Status: Mood NL, Other (flat affect) Labs Labs NA 142, K 3.1, Cl 108, C02 26, BUN 12, Cr 0.6, glu 99, WBC 6.4, HGB 12.6, plts 261 Images Images Impression: 1. No CT evidence of pulmonary embolism. 2. Retained secretions in the mainstem major segmental bronchi without evidence of consolidative pneumonia. 3. Tiny, 2 mm, subpleural noncalcified pulmonary nodule, likely benign infectious or inflammatory nodule. 4. Mild centrilobular emphysema. VTE Prophylaxis Ordered VTE Prophylaxis Devices: No VTE Pharmacological Prophylaxi: Yes Assessment/Plan Assessment/Plan acute dyspnea, small mucus plug PULM consult some COPD seen on CT, nebs, steroids, UTI, repeat cx, mult agents change martini, she reports it is needed due to incontinence and sacral ulcer MS, marked weakness, PT and OT eval, est. baseline is low sacral ulcer, vit c, zinc, consult wound care tobaccoism back pain admit JENI LÓPEZ MD Sep 22, 2017 14:47
[2017-09-22 15:00] VITALS: BP 90/54
[2017-09-22] MEDS ORDERED: ALBUTEROL SULFATE 2.5 MG/3 ML NEBU. NEB PRN (15:00)
[2017-09-22] MEDS ORDERED: NICOTINE 14MG PATCH. TD PRN (15:00)
[2017-09-22] MEDS ORDERED: LEVOFLOXACIN IV SCH (15:00)
[2017-09-22] MEDS: BACLOFEN 10 MG TABLET. PO SCH ×2 (15:00→23:06)
[2017-09-22] MEDS ORDERED: predniSONE 1 MG TABLET PO SCH (15:00)
[2017-09-22] MEDS: CETIRIZINE HCL 10 MG TABLET. PO SCH (15:00)
--- NOTE | 2017-09-22 15:09 | CONS ---
DATE OF CONSULTATION: 09/22/2017 ATTENDING PHYSICIAN: Laurie Arnett MD. REASON FOR CONSULTATION: Abnormal CT chest with mucus plug. HISTORY OF PRESENT ILLNESS: The patient is a pleasant 42-year-old female who has 22 years of tobacco use, still smokes cigarettes and also has history of MS for same duration of time. The patient presented to [facility] on 09/19/2017 with some flank pain and was treated for pyelonephritis, UTI. Urine cultures grew 2 organisms. She was having some occasional dyspnea; as a result, a CT chest was performed, which was reviewed by me. The patient had no evidence of any pulmonary embolism. There were some mild retained secretions seen in the right mainstem bronchus with no consolidated pneumonia seen. There was a tiny 2 mm subpleural noncalcified nodule, which is of no clinical significance. She has been transferred for further evaluation. PAST MEDICAL HISTORY: History of MS. History of factor V Leiden mutation, it is hereditary in her family, her daughter, her father had it, but she had no history of DVT or PE. History of MS. PAST SURGICAL HISTORY: Had a wound debridement from her coccyx. Has a chronic Shafer. ALLERGIES: None to any medications. CURRENT MEDICATIONS: Reviewed as listed in the [facility]. REVIEW OF SYSTEMS: Twelve-point systems obtained, pertinent positives discussed in history of present illness, otherwise noncontributory. All systems that were negative were reviewed as well. SOCIAL HISTORY: Smoked for 22 years and still smoking cigarettes, less than half a pack per day. PHYSICAL EXAMINATION: VITAL SIGNS: Have not been recorded yet. HEENT: Sclerae nonicteric. She is on 2 liters. NECK: Supple. LUNGS: Slightly diminished breath sounds right side, but no crackles, no wheezing, no rhonchi. CARDIOVASCULAR: Regular rate and rhythm. ABDOMEN: Soft, nontender. EXTREMITIES: With no pitting edema. LABORATORY DATA: Have been ordered. IMPRESSION: 1. Abnormal CT chest with tiny mucus secretions seen in the right mainstem bronchus. This does not need any invasive procedure such as bronchoscopy and at this point, aggressive pulmonary toilet would be reasonable. 2. Longstanding history of multiple sclerosis. 3. Tiny 2 mm subpleural noncalcified nodule which does not need any followup. She is a nonsmoker. 4. No definite pneumonia seen on the CT chest. RECOMMENDATIONS: 1. Incentive spirometry. 2. DuoNeb. 3. Continue oxygen. 4. Possible discharge in 24 hours. 5. Treatment of UTI per PCP. NARCISA BURTON MD DR: MAURICE/ronit JOB#: [id number] / [id number] ESTEBAN
[2017-09-22] MEDS: IPRATRPIUM/ALBUTEROL 0.5/2.5MG 3 ML NEBU. NEB SCH ×4 (16:00→20:00)
[2017-09-22] MEDS ORDERED: POLYETHYLENE GLYCOL 3350 17 GM PACKET. PO PRN (16:00)
[2017-09-22] MEDS ORDERED: ZOLPIDEM 5 MG TABLET. PO PRN (16:00)
[2017-09-22] MEDS: ENOXAPARIN 40 MG/0.4 ML SYRINGE. SQ SCH (18:00)
[2017-09-22] MEDS ORDERED: [UNRECOGNIZED DRUG - OTHER] (18:34)
[2017-09-22] MEDS: oxyCODONE/APAP 5/325 1 TAB TABLET PO PRN (18:48)
[2017-09-22 19:00] VITALS: BP 83/55
[2017-09-22] MEDS: BUDESONIDE 0.5 MG/2 ML NEBU. NEB SCH (19:03)
[2017-09-22] MEDS ORDERED: FLU VACC QS2017-18 (36MOS+)/PF 0.5 ML SYRINGE. VAX IM ONE (19:15)
[2017-09-22] MEDS ORDERED: NON FORMULARY ITEM (Dimethyl Fumarate (Tecfidera) 240 MG) PO SCH (21:00)
[2017-09-22 23:00] VITALS: BP 81/52
[2017-09-22] MEDS: ALPRAZolam 0.5 MG TABLET PO SCH (23:10)
[2017-09-23] MEDS: oxyCODONE/APAP 5/325 1 TAB TABLET PO PRN (01:42)
[2017-09-23 03:00] VITALS: BP 99/63
[2017-09-23 05:19] LABS: BASO # 0.1 x10^3/uL (0.0-0.2); BASO % 1 % (0-3); EOS % 3 % (0-3); HEMOGLOBIN 11.5 g/dL (12.0-15.5); LYMPH # 1.3 x10^3/uL (1.0-4.8); LYMPH % 20 % (24-48); MEAN CORPUSCULAR HEMOGLOBIN 26 pg (25-35); MEAN CORPUSCULAR HGB CONC 33 g/dL (31-37); MEAN CORPUSCULAR VOLUME 78 fL (79-100); MONO % 7 % (0-9); NEUT % 69 % (31-73); PLATELET COUNT 261 x10^3/uL (140-400); RED BLOOD COUNT 4.49 x10^6/uL (3.50-5.40); RED CELL DISTRIBUTION WIDTH 17.4 % (11.5-14.5); WHITE BLOOD COUNT 6.8 x10^3/uL (4.0-11.0)
[2017-09-23 06:10] LABS: ALBUMIN 2.6 g/dL (3.4-5.0); ALBUMIN/GLOBULIN RATIO 0.9 (1.0-1.7); CALCIUM 8.3 mg/dL (8.5-10.1); CREATININE 0.6 mg/dL (0.6-1.0); GFR 108.6; TOTAL BILIRUBIN 0.2 mg/dL (0.2-1.0); TOTAL PROTEIN 5.6 g/dL (6.4-8.2)
[2017-09-23 07:00] VITALS: BP 75/71
[2017-09-23] MEDS: IPRATRPIUM/ALBUTEROL 0.5/2.5MG 3 ML NEBU. NEB SCH ×4 (07:08→20:28)
[2017-09-23] MEDS: BUDESONIDE 0.5 MG/2 ML NEBU. NEB SCH ×2 (07:09→20:28)
[2017-09-23] MEDS ORDERED: IV NORMAL SALINE 500ML BAG 500 ML IV ONE (08:15)
[2017-09-23] MEDS ORDERED: predniSONE 1 MG TABLET PO SCH (09:00)
[2017-09-23] MEDS: ALPRAZolam 0.5 MG TABLET PO SCH ×2 (09:00→21:01)
[2017-09-23 09:48] LABS: HCO3 ABG 26 mmol/L (21-28); PCO2 ABG 43 mmHg (35-46); PO2 ABG 81 mmHg (75-108); SAT O2 ABG 96 % (92-99)
[2017-09-23 09:49] LABS: FIO2 ABG 28
[2017-09-23] MEDS: ASCORBIC ACID 500 MG TABLET PO SCH (10:22)
[2017-09-23] MEDS: CHOLECALCIFEROL (VITAMIN D3) 1,000 UNIT TABLET PO SCH (10:22)
[2017-09-23] MEDS: predniSONE 20 MG TABLET PO SCH (10:22)
[2017-09-23] MEDS: BACLOFEN 10 MG TABLET. PO SCH ×3 (10:22→21:01)
[2017-09-23] MEDS: MULTIVITAMIN with MINERAL TABLET. PO SCH (10:22)
[2017-09-23] MEDS: CETIRIZINE HCL 10 MG TABLET. PO SCH (10:23)
[2017-09-23] MEDS: ZINC SULFATE 220 MG CAPSULE. PO SCH (10:23)
[2017-09-23 11:00] VITALS: BP 71/47
--- NOTE | 2017-09-23 12:24 | PDOC ---
PULMONARY PROGRESS NOTES Subjective no soa Vitals Vital Signs Date Time Temp Pulse Resp B/P (MAP) Pulse Ox O2 Delivery O2 Flow Rate FiO2 09/23/17 11:00 98 Nasal Cannula 2.0 09/23/17 07:00 97.4 66 16 75/71 (72) 97.4 General: Alert, No acute distress Lungs: Clear Cardiovascular: S1 Abdomen: Soft Neuro Exam: Alert Extremities: No Edema Skin: Warm Labs Laboratory Tests Test 09/23/17 03:30 09/23/17 03:50 09/23/17 07:36 09/23/17 08:59 Sodium Level 142 mmol/L (136-145) Potassium Level 4.0 mmol/L (3.5-5.1) Chloride Level 108 mmol/L (98-107) Carbon Dioxide Level 26 mmol/L (21-32) Anion Gap 8 (6-14) Blood Urea Nitrogen 14 mg/dL (7-20) Creatinine 0.6 mg/dL (0.6-1.0) Estimated GFR (Cockcroft-Gault) 108.6 BUN/Creatinine Ratio 23 (6-20) Glucose Level 66 mg/dL (70-99) Calcium Level 8.3 mg/dL (8.5-10.1) Total Bilirubin 0.2 mg/dL (0.2-1.0) Aspartate Amino Transf (AST/SGOT) 9 U/L (15-37) Alanine Aminotransferase (ALT/SGPT) 9 U/L (14-59) Alkaline Phosphatase 50 U/L (46-116) Total Protein 5.6 g/dL (6.4-8.2) Albumin 2.6 g/dL (3.4-5.0) Albumin/Globulin Ratio 0.9 (1.0-1.7) White Blood Count 6.8 x10^3/uL (4.0-11.0) Red Blood Count 4.49 x10^6/uL (3.50-5.40) Hemoglobin 11.5 g/dL (12.0-15.5) Hematocrit 35.0 % (36.0-47.0) Mean Corpuscular Volume 78 fL (79-100) Mean Corpuscular Hemoglobin 26 pg (25-35) Mean Corpuscular Hemoglobin Concent 33 g/dL (31-37) Red Cell Distribution Width 17.4 % (11.5-14.5) Platelet Count 261 x10^3/uL (140-400) Neutrophils (%) (Auto) 69 % (31-73) Lymphocytes (%) (Auto) 20 % (24-48) Monocytes (%) (Auto) 7 % (0-9) Eosinophils (%) (Auto) 3 % (0-3) Basophils (%) (Auto) 1 % (0-3) Neutrophils # (Auto) 4.7 x10^3uL (1.8-7.7) Lymphocytes # (Auto) 1.3 x10^3/uL (1.0-4.8) Monocytes # (Auto) 0.5 x10^3/uL (0.0-1.1) Eosinophils # (Auto) 0.2 x10^3/uL (0.0-0.7) Basophils # (Auto) 0.1 x10^3/uL (0.0-0.2) Glucose (Fingerstick) 75 mg/dL (70-99) O2 Saturation 96 % (92-99) Arterial Blood pH 7.40 (7.35-7.45) Arterial Blood pCO2 at Patient Temp 43 mmHg (35-46) Arterial Blood pO2 at Patient Temp 81 mmHg (75-108) Arterial Blood HCO3 26 mmol/L (21-28) Arterial Blood Base Excess 1 mmol/L (-3-3) FiO2 28 Laboratory Tests Test 09/23/17 03:30 09/23/17 03:50 09/23/17 07:36 09/23/17 08:59 Sodium Level 142 mmol/L (136-145) Potassium Level 4.0 mmol/L (3.5-5.1) Chloride Level 108 mmol/L (98-107) Carbon Dioxide Level 26 mmol/L (21-32) Anion Gap 8 (6-14) Blood Urea Nitrogen 14 mg/dL (7-20) Creatinine 0.6 mg/dL (0.6-1.0) Estimated GFR (Cockcroft-Gault) 108.6 BUN/Creatinine Ratio 23 (6-20) Glucose Level 66 mg/dL (70-99) Calcium Level 8.3 mg/dL (8.5-10.1) Total Bilirubin 0.2 mg/dL (0.2-1.0) Aspartate Amino Transf (AST/SGOT) 9 U/L (15-37) Alanine Aminotransferase (ALT/SGPT) 9 U/L (14-59) Alkaline Phosphatase 50 U/L (46-116) Total Protein 5.6 g/dL (6.4-8.2) Albumin 2.6 g/dL (3.4-5.0) Albumin/Globulin Ratio 0.9 (1.0-1.7) White Blood Count 6.8 x10^3/uL (4.0-11.0) Red Blood Count 4.49 x10^6/uL (3.50-5.40) Hemoglobin 11.5 g/dL (12.0-15.5) Hematocrit 35.0 % (36.0-47.0) Mean Corpuscular Volume 78 fL (79-100) Mean Corpuscular Hemoglobin 26 pg (25-35) Mean Corpuscular Hemoglobin Concent 33 g/dL (31-37) Red Cell Distribution Width 17.4 % (11.5-14.5) Platelet Count 261 x10^3/uL (140-400) Neutrophils (%) (Auto) 69 % (31-73) Lymphocytes (%) (Auto) 20 % (24-48) Monocytes (%) (Auto) 7 % (0-9) Eosinophils (%) (Auto) 3 % (0-3) Basophils (%) (Auto) 1 % (0-3) Neutrophils # (Auto) 4.7 x10^3uL (1.8-7.7) Lymphocytes # (Auto) 1.3 x10^3/uL (1.0-4.8) Monocytes # (Auto) 0.5 x10^3/uL (0.0-1.1) Eosinophils # (Auto) 0.2 x10^3/uL (0.0-0.7) Basophils # (Auto) 0.1 x10^3/uL (0.0-0.2) Glucose (Fingerstick) 75 mg/dL (70-99) O2 Saturation 96 % (92-99) Arterial Blood pH 7.40 (7.35-7.45) Arterial Blood pCO2 at Patient Temp 43 mmHg (35-46) Arterial Blood pO2 at Patient Temp 81 mmHg (75-108) Arterial Blood HCO3 26 mmol/L (21-28) Arterial Blood Base Excess 1 mmol/L (-3-3) FiO2 28 Medications Active Scripts Medications Dose Route/Sig Max Daily Dose Days Date Category [bladder spasms ] 09/22/17 Reported Prednisone 1 Mg Tablet 1 Mg PO DAILY 04/27/17 Reported Loratadine 10 Mg Tablet 1 Tab PO DAILY 04/27/17 Reported [levaquin] 750 Mg IV DAILY 04/27/17 Reported Tecfidera (Dimethyl Fumarate) 240 Mg Capsule.dr 240 Mg PO BID 04/27/17 Reported Baclofen 20 Mg Tablet 1 Tab PO TID 04/27/17 Reported Xanax (Alprazolam) 0.5 Mg Tablet 1 Tab PO BID 04/27/17 Reported Impression . 1. Abnormal CT chest with tiny mucus secretions seen in the right mainstem bronchus. This does not need any invasive procedure such as bronchoscopy and at this point, aggressive pulmonary toilet would be reasonable. 2. Longstanding history of multiple sclerosis. 3. Tiny 2 mm subpleural noncalcified nodule which does not need any followup. She is a nonsmoker. 4. No definite pneumonia seen on the CT chest. Plan . 1. Incentive spirometry. 2. DuoNeb. 3. dc oxygen. 4. discharge today 5. Treatment of UTI per PCP. NARCISA BURTON MD Sep 23, 2017 12:24
--- NOTE | 2017-09-23 12:46 | PDOC ---
PROGRESS NOTES Chief Complaint Chief Complaint acute dyspnea, small mucus plug COPD UTI ? chronic martini due to incontinence and sacral ulcer MS, marked weakness, bedbound sacral ulcer tobaccoism back pain mild malnutrition plan: fu with pulm on levaquin duoneb prednisone check ABG, result ok monitor BP wound care, PTOT dc tmr History of Present Illness History of Present Illness ROS: no fever, chills, sob or chest pain low BP at am, got 500cc bolus pt told me her Baseline BP runs low 70-80s pt looks very sleepy, mild drowsy need NC 2L bed bound with MS Vitals Vitals Vital Signs Date Time Temp Pulse Resp B/P (MAP) Pulse Ox O2 Delivery O2 Flow Rate FiO2 09/23/17 11:00 98 Nasal Cannula 2.0 09/23/17 07:00 97.4 66 16 75/71 (72) 97.4 Physical Exam General: Alert, Cooperative, mild distress Heart: Regular rate, Normal S1 Lungs: Clear Abdomen: Normal bowel sounds, Soft Extremities: No clubbing, No edema Skin: No rashes, No breakdown, No significant lesion Labs LABS Laboratory Tests Test 09/23/17 03:30 09/23/17 03:50 09/23/17 07:36 09/23/17 08:59 Sodium Level 142 mmol/L (136-145) Potassium Level 4.0 mmol/L (3.5-5.1) Chloride Level 108 mmol/L (98-107) Carbon Dioxide Level 26 mmol/L (21-32) Anion Gap 8 (6-14) Blood Urea Nitrogen 14 mg/dL (7-20) Creatinine 0.6 mg/dL (0.6-1.0) Estimated GFR (Cockcroft-Gault) 108.6 BUN/Creatinine Ratio 23 (6-20) Glucose Level 66 mg/dL (70-99) Calcium Level 8.3 mg/dL (8.5-10.1) Total Bilirubin 0.2 mg/dL (0.2-1.0) Aspartate Amino Transf (AST/SGOT) 9 U/L (15-37) Alanine Aminotransferase (ALT/SGPT) 9 U/L (14-59) Alkaline Phosphatase 50 U/L (46-116) Total Protein 5.6 g/dL (6.4-8.2) Albumin 2.6 g/dL (3.4-5.0) Albumin/Globulin Ratio 0.9 (1.0-1.7) White Blood Count 6.8 x10^3/uL (4.0-11.0) Red Blood Count 4.49 x10^6/uL (3.50-5.40) Hemoglobin 11.5 g/dL (12.0-15.5) Hematocrit 35.0 % (36.0-47.0) Mean Corpuscular Volume 78 fL (79-100) Mean Corpuscular Hemoglobin 26 pg (25-35) Mean Corpuscular Hemoglobin Concent 33 g/dL (31-37) Red Cell Distribution Width 17.4 % (11.5-14.5) Platelet Count 261 x10^3/uL (140-400) Neutrophils (%) (Auto) 69 % (31-73) Lymphocytes (%) (Auto) 20 % (24-48) Monocytes (%) (Auto) 7 % (0-9) Eosinophils (%) (Auto) 3 % (0-3) Basophils (%) (Auto) 1 % (0-3) Neutrophils # (Auto) 4.7 x10^3uL (1.8-7.7) Lymphocytes # (Auto) 1.3 x10^3/uL (1.0-4.8) Monocytes # (Auto) 0.5 x10^3/uL (0.0-1.1) Eosinophils # (Auto) 0.2 x10^3/uL (0.0-0.7) Basophils # (Auto) 0.1 x10^3/uL (0.0-0.2) Glucose (Fingerstick) 75 mg/dL (70-99) O2 Saturation 96 % (92-99) Arterial Blood pH 7.40 (7.35-7.45) Arterial Blood pCO2 at Patient Temp 43 mmHg (35-46) Arterial Blood pO2 at Patient Temp 81 mmHg (75-108) Arterial Blood HCO3 26 mmol/L (21-28) Arterial Blood Base Excess 1 mmol/L (-3-3) FiO2 28 Comment Review of Relevant I have reviewed the following items lupe (where applicable) has been applied. Labs Laboratory Tests Test 09/23/17 03:30 09/23/17 03:50 09/23/17 07:36 11/16/17 08:59 Sodium Level 142 mmol/L (136-145) Potassium Level 4.0 mmol/L (3.5-5.1) Chloride Level 108 mmol/L (98-107) Carbon Dioxide Level 26 mmol/L (21-32) Anion Gap 8 (6-14) Blood Urea Nitrogen 14 mg/dL (7-20) Creatinine 0.6 mg/dL (0.6-1.0) Estimated GFR (Cockcroft-Gault) 108.6 BUN/Creatinine Ratio 23 (6-20) Glucose Level 66 mg/dL (70-99) Calcium Level 8.3 mg/dL (8.5-10.1) Total Bilirubin 0.2 mg/dL (0.2-1.0) Aspartate Amino Transf (AST/SGOT) 9 U/L (15-37) Alanine Aminotransferase (ALT/SGPT) 9 U/L (14-59) Alkaline Phosphatase 50 U/L (46-116) Total Protein 5.6 g/dL (6.4-8.2) Albumin 2.6 g/dL (3.4-5.0) Albumin/Globulin Ratio 0.9 (1.0-1.7) White Blood Count 6.8 x10^3/uL (4.0-11.0) Red Blood Count 4.49 x10^6/uL (3.50-5.40) Hemoglobin 11.5 g/dL (12.0-15.5) Hematocrit 35.0 % (36.0-47.0) Mean Corpuscular Volume 78 fL (79-100) Mean Corpuscular Hemoglobin 26 pg (25-35) Mean Corpuscular Hemoglobin Concent 33 g/dL (31-37) Red Cell Distribution Width 17.4 % (11.5-14.5) Platelet Count 261 x10^3/uL (140-400) Neutrophils (%) (Auto) 69 % (31-73) Lymphocytes (%) (Auto) 20 % (24-48) Monocytes (%) (Auto) 7 % (0-9) Eosinophils (%) (Auto) 3 % (0-3) Basophils (%) (Auto) 1 % (0-3) Neutrophils # (Auto) 4.7 x10^3uL (1.8-7.7) Lymphocytes # (Auto) 1.3 x10^3/uL (1.0-4.8) Monocytes # (Auto) 0.5 x10^3/uL (0.0-1.1) Eosinophils # (Auto) 0.2 x10^3/uL (0.0-0.7) Basophils # (Auto) 0.1 x10^3/uL (0.0-0.2) Glucose (Fingerstick) 75 mg/dL (70-99) O2 Saturation 96 % (92-99) Arterial Blood pH 7.40 (7.35-7.45) Arterial Blood pCO2 at Patient Temp 43 mmHg (35-46) Arterial Blood pO2 at Patient Temp 81 mmHg (75-108) Arterial Blood HCO3 26 mmol/L (21-28) Arterial Blood Base Excess 1 mmol/L (-3-3) FiO2 28 Laboratory Tests Test 09/23/17 03:30 09/23/17 03:50 09/23/17 07:36 09/23/17 08:59 Sodium Level 142 mmol/L (136-145) Potassium Level 4.0 mmol/L (3.5-5.1) Chloride Level 108 mmol/L (98-107) Carbon Dioxide Level 26 mmol/L (21-32) Anion Gap 8 (6-14) Blood Urea Nitrogen 14 mg/dL (7-20) Creatinine 0.6 mg/dL (0.6-1.0) Estimated GFR (Cockcroft-Gault) 108.6 BUN/Creatinine Ratio 23 (6-20) Glucose Level 66 mg/dL (70-99) Calcium Level 8.3 mg/dL (8.5-10.1) Total Bilirubin 0.2 mg/dL (0.2-1.0) Aspartate Amino Transf (AST/SGOT) 9 U/L (15-37) Alanine Aminotransferase (ALT/SGPT) 9 U/L (14-59) Alkaline Phosphatase 50 U/L (46-116) Total Protein 5.6 g/dL (6.4-8.2) Albumin 2.6 g/dL (3.4-5.0) Albumin/Globulin Ratio 0.9 (1.0-1.7) White Blood Count 6.8 x10^3/uL (4.0-11.0) Red Blood Count 4.49 x10^6/uL (3.50-5.40) Hemoglobin 11.5 g/dL (12.0-15.5) Hematocrit 35.0 % (36.0-47.0) Mean Corpuscular Volume 78 fL (79-100) Mean Corpuscular Hemoglobin 26 pg (25-35) Mean Corpuscular Hemoglobin Concent 33 g/dL (31-37) Red Cell Distribution Width 17.4 % (11.5-14.5) Platelet Count 261 x10^3/uL (140-400) Neutrophils (%) (Auto) 69 % (31-73) Lymphocytes (%) (Auto) 20 % (24-48) Monocytes (%) (Auto) 7 % (0-9) Eosinophils (%) (Auto) 3 % (0-3) Basophils (%) (Auto) 1 % (0-3) Neutrophils # (Auto) 4.7 x10^3uL (1.8-7.7) Lymphocytes # (Auto) 1.3 x10^3/uL (1.0-4.8) Monocytes # (Auto) 0.5 x10^3/uL (0.0-1.1) Eosinophils # (Auto) 0.2 x10^3/uL (0.0-0.7) Basophils # (Auto) 0.1 x10^3/uL (0.0-0.2) Glucose (Fingerstick) 75 mg/dL (70-99) O2 Saturation 96 % (92-99) Arterial Blood pH 7.40 (7.35-7.45) Arterial Blood pCO2 at Patient Temp 43 mmHg (35-46) Arterial Blood pO2 at Patient Temp 81 mmHg (75-108) Arterial Blood HCO3 26 mmol/L (21-28) Arterial Blood Base Excess 1 mmol/L (-3-3) FiO2 28 Medications Current Medications Alprazolam (Xanax) 0.5 mg BID PO Last administered on 09/22/17 23:10; Start 09/22/17 at 21:00 Prednisone (Prednisone) 1 mg DAILY PO ; Start 09/23/17 at 09:00; Stop at 09:00; Status DC Baclofen (Lioresal) 20 mg TID PO Last administered on 09/23/17 10:22; Start 09/22/17 at 15:00 Non-Formulary Medication 240 mg BID PO ; Start 09/22/17 at 21:00; Stop at 22:34; Status DC Cetirizine HCl (ZyrTEC) 10 mg DAILY PO Last administered on 09/23/17 10:23; Start 09/22/17 at 15:00 Levofloxacin/ Dextrose (LEVAQUIN 750mg PREMIX) 750 mg Q24H IV Last administered on 09/22/17 18:00; Start 09/22/17 at 15:00 Albuterol/ Ipratropium (Duoneb) 3 ml RTQID NEB Last administered on 09/23/17 11:00; Start 09/22/17 at 16:00 Budesonide (Pulmicort) 0.5 mg RTBID NEB Last administered on 09/23/17 07:09; Start 09/22/17 at 20:00 Prednisone (Prednisone) 40 mg DAILY PO ; Start 09/22/17 at 15:00; Stop at 15:00; Status DC Prednisone (Prednisone) 40 mg DAILY PO Last administered on 09/23/17 10:22; Start 09/23/17 at 09:00 Nicotine (Nicoderm Cq 14mg) 1 patch PRN DAILY PRN TD SMOKING CESSATION; Start 09/22/17 at 15:00 Tramadol HCl (Ultram) 50 mg PRN Q6HRS PRN PO PAIN; Start 09/22/17 at 15:00 Albuterol Sulfate (Ventolin Neb Soln) 2.5 mg PRN Q4HRS PRN NEB SHORTNESS OF BREATH; Start 09/22/17 at 15:00 Albuterol/ Ipratropium (Duoneb) 3 ml RTQID NEB ; Start 09/22/17 at 16:00; Stop 09/23/17 at 09:01; Status DC Enoxaparin Sodium (Lovenox Per Pharmacy Prophylaxis Dosing) 1 each PRN DAILY PRN MC SEE COMMENTS; Start 09/22/17 at 15:00 Enoxaparin Sodium (Lovenox 40mg Syringe) 40 mg Q24H SQ Last administered on 18:00; Start 09/22/17 at 16:00 Oxycodone/ Acetaminophen (Percocet 5/325) 1 tab PRN Q6HRS PRN PO PAIN Last administered on 09/23/17 01:42; Start 09/22/17 at 16:00 Zolpidem Tartrate (Ambien) 5 mg PRN QHS PRN PO INSOMNIA; Start 09/22/17 at 16: 00 Polyethylene Glycol (miraLAX PACKET) 17 gm PRN DAILY PRN PO CONSTIPATION; Start 09/22/17 at 16:00 Ascorbic Acid (Vitamin C) 500 mg DAILY PO Last administered on 09/23/17 10:22 ; Start 09/23/17 at 09:00 Zinc Sulfate (Orazinc) 220 mg DAILY PO Last administered on 09/23/17 10:23; Start 09/23/17 at 09:00 Multivitamins (Thera M Plus) 1 tab DAILY PO Last administered on 09/23/17 10: 22; Start 09/23/17 at 09:00 Vitamin D (Vitamin D3) 1,000 unit DAILY PO Last administered on 09/23/17 10: 22; Start 09/23/17 at 09:00 Influenza Virus Vaccine Quadrival (Fluarix Quad [id number] Syringe) 0.5 ml ONCE ONCE VAX IM Last administered on 09/22/17 23:10; Start 09/22/17 at 19:15; Stop 09/22/17 at 19:16; Status DC Sodium Chloride 500 ml @ 500 mls/hr 1X ONCE IV Last administered on 08:15; Start 09/23/17 at 08:15; Stop 09/23/17 at 09:14; Status DC Famotidine (Pepcid) 20 mg QHS PO ; Start 09/23/17 at 21:00 Active Scripts Active Reported [bladder spasms ] Prednisone 1 Mg Tablet 1 Mg PO DAILY Loratadine 10 Mg Tablet 1 Tab PO DAILY [levaquin] 750 Mg IV DAILY Tecfidera (Dimethyl Fumarate) 240 Mg Capsule.dr 240 Mg PO BID Baclofen 20 Mg Tablet 1 Tab PO TID Xanax (Alprazolam) 0.5 Mg Tablet 1 Tab PO BID Vitals/I & O Vital Sign - Last 24 Hours 09/22/17 09/22/17 09/22/17 09/22/17 13:46 15:00 16:02 19:00 Temp 97.7 97.9 97.7 97.9 Pulse 75 85 Resp 14 14 B/P (MAP) 90/54 (66) 83/55 (64) Pulse Ox 100 100 O2 Delivery Nasal Cannula Nasal Cannula Nasal Cannula Nasal Cannula O2 Flow Rate 2.0 2.0 2.0 2.0 09/22/17 09/22/17 09/22/17 09/22/17 19:04 19:04 19:43 23:00 Temp 97.9 97.9 Pulse 91 Resp 14 B/P (MAP) 81/52 (62) Pulse Ox 98 O2 Delivery Nasal Cannula Nasal Cannula Nasal Cannula Nasal Cannula O2 Flow Rate 1.0 1.0 1.0 2.0 09/23/17 09/23/17 09/23/17 09/23/17 01:42 02:42 03:00 07:00 Temp 97.9 97.4 97.9 97.4 Pulse 66 66 Resp 16 16 16 16 B/P (MAP) 99/63 (75) 75/71 (72) Pulse Ox 98 98 98 94 O2 Delivery Nasal Cannula Nasal Cannula Nasal Cannula Nasal Cannula O2 Flow Rate 2.0 2.0 2.0 2.0 09/23/17 09/23/17 09/23/17 09/23/17 07:10 07:13 07:45 09:40 Pulse Ox 98 98 95 O2 Delivery Nasal Cannula Nasal Cannula Nasal Cannula Nasal Cannula O2 Flow Rate 2.0 2.0 2.0 2.0 09/23/17 11:00 Pulse Ox 98 O2 Delivery Nasal Cannula O2 Flow Rate 2.0 Intake and Output 09/22/17 09/22/17 09/23/17 15:00 23:00 07:00 Intake Total 180 ml 420 ml Output Total 575 ml Balance 180 ml -155 ml TED OLIVARES MD Sep 23, 2017 12:46
[2017-09-23 15:00] VITALS: BP 83/50
[2017-09-23] MEDS: ENOXAPARIN 40 MG/0.4 ML SYRINGE. SQ SCH (18:11)
[2017-09-23 19:00] VITALS: BP 84/48
[2017-09-23] MEDS: FAMOTIDINE 20 MG TABLET. PO SCH (21:01)
[2017-09-23] MEDS: LACTOBACILLUS RHAMNOSUS GG 1 CAPSULE. PO SCH (21:01)
[2017-09-23] MEDS: traMADol 50 MG TABLET PO PRN (21:02)
[2017-09-23 23:00] VITALS: BP 78/50
[2017-09-24 03:00] VITALS: BP 100/64
[2017-09-24 05:37] LABS: BASO % 0 % (0-3); EOS % 0 % (0-3); HEMATOCRIT 35.4 % (36.0-47.0); HEMOGLOBIN 11.7 g/dL (12.0-15.5); LYMPH % 11 % (24-48); MEAN CORPUSCULAR HEMOGLOBIN 26 pg (25-35); MEAN CORPUSCULAR HGB CONC 33 g/dL (31-37); MEAN CORPUSCULAR VOLUME 78 fL (79-100); MONO % 6 % (0-9); NEUT % 83 % (31-73); PLATELET COUNT 277 x10^3/uL (140-400); RED BLOOD COUNT 4.52 x10^6/uL (3.50-5.40); RED CELL DISTRIBUTION WIDTH 17.2 % (11.5-14.5); WHITE BLOOD COUNT 9.4 x10^3/uL (4.0-11.0)
[2017-09-24 05:58] LABS: CALCIUM 8.5 mg/dL (8.5-10.1); CREATININE 0.6 mg/dL (0.6-1.0); GFR 108.6
[2017-09-24 05:59] LABS: POTASSIUM 4.3 mmol/L (3.5-5.1)
[2017-09-24] MEDS: BUDESONIDE 0.5 MG/2 ML NEBU. NEB SCH ×2 (06:52→20:40)
[2017-09-24] MEDS: IPRATRPIUM/ALBUTEROL 0.5/2.5MG 3 ML NEBU. NEB SCH ×4 (06:52→20:40)
[2017-09-24 07:00] VITALS: BP 93/58
[2017-09-24] MEDS: ALPRAZolam 0.5 MG TABLET PO SCH ×2 (08:33→21:11)
[2017-09-24] MEDS: CETIRIZINE HCL 10 MG TABLET. PO SCH (09:39)
[2017-09-24] MEDS: ASCORBIC ACID 500 MG TABLET PO SCH (09:40)
[2017-09-24] MEDS: LACTOBACILLUS RHAMNOSUS GG 1 CAPSULE. PO SCH ×2 (09:40→21:12)
[2017-09-24] MEDS: CHOLECALCIFEROL (VITAMIN D3) 1,000 UNIT TABLET PO SCH (09:40)
[2017-09-24] MEDS: predniSONE 20 MG TABLET PO SCH (09:40)
[2017-09-24] MEDS: ZINC SULFATE 220 MG CAPSULE. PO SCH (09:40)
[2017-09-24] MEDS: MULTIVITAMIN with MINERAL TABLET. PO SCH (09:40)
[2017-09-24] MEDS: BACLOFEN 10 MG TABLET. PO SCH ×3 (09:41→21:12)
[2017-09-24 11:00] VITALS: BP 90/62
--- NOTE | 2017-09-24 12:23 | PDOC ---
PULMONARY PROGRESS NOTES Subjective no soa Vitals Vital Signs Date Time Temp Pulse Resp B/P (MAP) Pulse Ox O2 Delivery O2 Flow Rate FiO2 09/24/17 10:45 Room Air 09/24/17 07:00 97.4 68 16 93/58 (70) 93 97.4 09/23/17 15:43 2.0 General: Alert, No acute distress Lungs: Clear Cardiovascular: S1 Abdomen: Soft Neuro Exam: Alert Extremities: No Edema Skin: Warm Labs Laboratory Tests Test 09/23/17 03:30 09/23/17 03:50 09/23/17 07:36 09/23/17 08:59 Sodium Level 142 mmol/L (136-145) Potassium Level 4.0 mmol/L (3.5-5.1) Chloride Level 108 mmol/L (98-107) Carbon Dioxide Level 26 mmol/L (21-32) Anion Gap 8 (6-14) Blood Urea Nitrogen 14 mg/dL (7-20) Creatinine 0.6 mg/dL (0.6-1.0) Estimated GFR (Cockcroft-Gault) 108.6 BUN/Creatinine Ratio 23 (6-20) Glucose Level 66 mg/dL (70-99) Calcium Level 8.3 mg/dL (8.5-10.1) Total Bilirubin 0.2 mg/dL (0.2-1.0) Aspartate Amino Transf (AST/SGOT) 9 U/L (15-37) Alanine Aminotransferase (ALT/SGPT) 9 U/L (14-59) Alkaline Phosphatase 50 U/L (46-116) Total Protein 5.6 g/dL (6.4-8.2) Albumin 2.6 g/dL (3.4-5.0) Albumin/Globulin Ratio 0.9 (1.0-1.7) White Blood Count 6.8 x10^3/uL (4.0-11.0) Red Blood Count 4.49 x10^6/uL (3.50-5.40) Hemoglobin 11.5 g/dL (12.0-15.5) Hematocrit 35.0 % (36.0-47.0) Mean Corpuscular Volume 78 fL (79-100) Mean Corpuscular Hemoglobin 26 pg (25-35) Mean Corpuscular Hemoglobin Concent 33 g/dL (31-37) Red Cell Distribution Width 17.4 % (11.5-14.5) Platelet Count 261 x10^3/uL (140-400) Neutrophils (%) (Auto) 69 % (31-73) Lymphocytes (%) (Auto) 20 % (24-48) Monocytes (%) (Auto) 7 % (0-9) Eosinophils (%) (Auto) 3 % (0-3) Basophils (%) (Auto) 1 % (0-3) Neutrophils # (Auto) 4.7 x10^3uL (1.8-7.7) Lymphocytes # (Auto) 1.3 x10^3/uL (1.0-4.8) Monocytes # (Auto) 0.5 x10^3/uL (0.0-1.1) Eosinophils # (Auto) 0.2 x10^3/uL (0.0-0.7) Basophils # (Auto) 0.1 x10^3/uL (0.0-0.2) Glucose (Fingerstick) 75 mg/dL (70-99) O2 Saturation 96 % (92-99) Arterial Blood pH 7.40 (7.35-7.45) Arterial Blood pCO2 at Patient Temp 43 mmHg (35-46) Arterial Blood pO2 at Patient Temp 81 mmHg (75-108) Arterial Blood HCO3 26 mmol/L (21-28) Arterial Blood Base Excess 1 mmol/L (-3-3) FiO2 28 Test 09/24/17 03:50 White Blood Count 9.4 x10^3/uL (4.0-11.0) Red Blood Count 4.52 x10^6/uL (3.50-5.40) Hemoglobin 11.7 g/dL (12.0-15.5) Hematocrit 35.4 % (36.0-47.0) Mean Corpuscular Volume 78 fL (79-100) Mean Corpuscular Hemoglobin 26 pg (25-35) Mean Corpuscular Hemoglobin Concent 33 g/dL (31-37) Red Cell Distribution Width 17.2 % (11.5-14.5) Platelet Count 277 x10^3/uL (140-400) Neutrophils (%) (Auto) 83 % (31-73) Lymphocytes (%) (Auto) 11 % (24-48) Monocytes (%) (Auto) 6 % (0-9) Eosinophils (%) (Auto) 0 % (0-3) Basophils (%) (Auto) 0 % (0-3) Neutrophils # (Auto) 7.8 x10^3uL (1.8-7.7) Lymphocytes # (Auto) 1.0 x10^3/uL (1.0-4.8) Monocytes # (Auto) 0.6 x10^3/uL (0.0-1.1) Eosinophils # (Auto) 0.0 x10^3/uL (0.0-0.7) Basophils # (Auto) 0.0 x10^3/uL (0.0-0.2) Sodium Level 141 mmol/L (136-145) Potassium Level 4.3 mmol/L (3.5-5.1) Chloride Level 108 mmol/L (98-107) Carbon Dioxide Level 27 mmol/L (21-32) Anion Gap 6 (6-14) Blood Urea Nitrogen 18 mg/dL (7-20) Creatinine 0.6 mg/dL (0.6-1.0) Estimated GFR (Cockcroft-Gault) 108.6 Glucose Level 77 mg/dL (70-99) Calcium Level 8.5 mg/dL (8.5-10.1) Laboratory Tests Test 09/24/17 03:50 White Blood Count 9.4 x10^3/uL (4.0-11.0) Red Blood Count 4.52 x10^6/uL (3.50-5.40) Hemoglobin 11.7 g/dL (12.0-15.5) Hematocrit 35.4 % (36.0-47.0) Mean Corpuscular Volume 78 fL (79-100) Mean Corpuscular Hemoglobin 26 pg (25-35) Mean Corpuscular Hemoglobin Concent 33 g/dL (31-37) Red Cell Distribution Width 17.2 % (11.5-14.5) Platelet Count 277 x10^3/uL (140-400) Neutrophils (%) (Auto) 83 % (31-73) Lymphocytes (%) (Auto) 11 % (24-48) Monocytes (%) (Auto) 6 % (0-9) Eosinophils (%) (Auto) 0 % (0-3) Basophils (%) (Auto) 0 % (0-3) Neutrophils # (Auto) 7.8 x10^3uL (1.8-7.7) Lymphocytes # (Auto) 1.0 x10^3/uL (1.0-4.8) Monocytes # (Auto) 0.6 x10^3/uL (0.0-1.1) Eosinophils # (Auto) 0.0 x10^3/uL (0.0-0.7) Basophils # (Auto) 0.0 x10^3/uL (0.0-0.2) Sodium Level 141 mmol/L (136-145) Potassium Level 4.3 mmol/L (3.5-5.1) Chloride Level 108 mmol/L (98-107) Carbon Dioxide Level 27 mmol/L (21-32) Anion Gap 6 (6-14) Blood Urea Nitrogen 18 mg/dL (7-20) Creatinine 0.6 mg/dL (0.6-1.0) Estimated GFR (Cockcroft-Gault) 108.6 Glucose Level 77 mg/dL (70-99) Calcium Level 8.5 mg/dL (8.5-10.1) Medications Active Scripts Medications Dose Route/Sig Max Daily Dose Days Date Category [bladder spasms ] 09/22/17 Reported Prednisone 1 Mg Tablet 1 Mg PO DAILY 04/27/17 Reported Loratadine 10 Mg Tablet 1 Tab PO DAILY 04/27/17 Reported [levaquin] 750 Mg IV DAILY 04/27/17 Reported Tecfidera (Dimethyl Fumarate) 240 Mg Capsule.dr 240 Mg PO BID 04/27/17 Reported Baclofen 20 Mg Tablet 1 Tab PO TID 04/27/17 Reported Xanax (Alprazolam) 0.5 Mg Tablet 1 Tab PO BID 04/27/17 Reported Impression . 1. Abnormal CT chest with tiny mucus secretions seen in the right mainstem bronchus. This does not need any invasive procedure such as bronchoscopy and at this point, aggressive pulmonary toilet would be reasonable. 2. Longstanding history of multiple sclerosis. 3. Tiny 2 mm subpleural noncalcified nodule which does not need any followup. She is a nonsmoker. 4. No definite pneumonia seen on the CT chest. Plan . 1. Incentive spirometry. 2. DuoNeb. 3. dc oxygen. 4. discharge today NARCISA BURTON MD Sep 24, 2017 12:23
[2017-09-24] MEDS: traMADol 50 MG TABLET PO PRN (12:39)
--- NOTE | 2017-09-24 14:41 | PDOC ---
PROGRESS NOTES Chief Complaint Chief Complaint acute dyspnea, small mucus plug COPD UTI ? chronic martini due to incontinence and sacral ulcer MS, marked weakness, bedbound sacral ulcer tobaccoism back pain mild malnutrition chronic low BP at 70-80s plan: fu with pulm on levaquin duoneb prednisone check ABG, result ok monitor BP wound care, PTOT dc tmr to SNF History of Present Illness History of Present Illness ROS: no fever, chills, sob or chest pain low BP at am, got 500cc bolus pt told me her Baseline BP runs low 70-80s pt looks very sleepy, mild drowsy need NC 2L bed bound with MS Vitals Vitals Vital Signs Date Time Temp Pulse Resp B/P (MAP) Pulse Ox O2 Delivery O2 Flow Rate FiO2 09/24/17 14:08 Room Air 09/24/17 11:00 97.9 89 18 90/62 (71) 98 97.9 09/23/17 15:43 2.0 Physical Exam General: Alert, Cooperative, mild distress Heart: Regular rate, Normal S1 Lungs: Clear Abdomen: Normal bowel sounds, Soft Extremities: No clubbing, No edema Skin: No rashes, No breakdown, No significant lesion Labs LABS Laboratory Tests Test 09/24/17 03:50 White Blood Count 9.4 x10^3/uL (4.0-11.0) Red Blood Count 4.52 x10^6/uL (3.50-5.40) Hemoglobin 11.7 g/dL (12.0-15.5) Hematocrit 35.4 % (36.0-47.0) Mean Corpuscular Volume 78 fL (79-100) Mean Corpuscular Hemoglobin 26 pg (25-35) Mean Corpuscular Hemoglobin Concent 33 g/dL (31-37) Red Cell Distribution Width 17.2 % (11.5-14.5) Platelet Count 277 x10^3/uL (140-400) Neutrophils (%) (Auto) 83 % (31-73) Lymphocytes (%) (Auto) 11 % (24-48) Monocytes (%) (Auto) 6 % (0-9) Eosinophils (%) (Auto) 0 % (0-3) Basophils (%) (Auto) 0 % (0-3) Neutrophils # (Auto) 7.8 x10^3uL (1.8-7.7) Lymphocytes # (Auto) 1.0 x10^3/uL (1.0-4.8) Monocytes # (Auto) 0.6 x10^3/uL (0.0-1.1) Eosinophils # (Auto) 0.0 x10^3/uL (0.0-0.7) Basophils # (Auto) 0.0 x10^3/uL (0.0-0.2) Sodium Level 141 mmol/L (136-145) Potassium Level 4.3 mmol/L (3.5-5.1) Chloride Level 108 mmol/L (98-107) Carbon Dioxide Level 27 mmol/L (21-32) Anion Gap 6 (6-14) Blood Urea Nitrogen 18 mg/dL (7-20) Creatinine 0.6 mg/dL (0.6-1.0) Estimated GFR (Cockcroft-Gault) 108.6 Glucose Level 77 mg/dL (70-99) Calcium Level 8.5 mg/dL (8.5-10.1) Comment Review of Relevant I have reviewed the following items lupe (where applicable) has been applied. Labs Laboratory Tests Test 09/23/17 03:30 09/23/17 03:50 09/23/17 07:36 09/23/17 08:59 Sodium Level 142 mmol/L (136-145) Potassium Level 4.0 mmol/L (3.5-5.1) Chloride Level 108 mmol/L (98-107) Carbon Dioxide Level 26 mmol/L (21-32) Anion Gap 8 (6-14) Blood Urea Nitrogen 14 mg/dL (7-20) Creatinine 0.6 mg/dL (0.6-1.0) Estimated GFR (Cockcroft-Gault) 108.6 BUN/Creatinine Ratio 23 (6-20) Glucose Level 66 mg/dL (70-99) Calcium Level 8.3 mg/dL (8.5-10.1) Total Bilirubin 0.2 mg/dL (0.2-1.0) Aspartate Amino Transf (AST/SGOT) 9 U/L (15-37) Alanine Aminotransferase (ALT/SGPT) 9 U/L (14-59) Alkaline Phosphatase 50 U/L (46-116) Total Protein 5.6 g/dL (6.4-8.2) Albumin 2.6 g/dL (3.4-5.0) Albumin/Globulin Ratio 0.9 (1.0-1.7) White Blood Count 6.8 x10^3/uL (4.0-11.0) Red Blood Count 4.49 x10^6/uL (3.50-5.40) Hemoglobin 11.5 g/dL (12.0-15.5) Hematocrit 35.0 % (36.0-47.0) Mean Corpuscular Volume 78 fL (79-100) Mean Corpuscular Hemoglobin 26 pg (25-35) Mean Corpuscular Hemoglobin Concent 33 g/dL (31-37) Red Cell Distribution Width 17.4 % (11.5-14.5) Platelet Count 261 x10^3/uL (140-400) Neutrophils (%) (Auto) 69 % (31-73) Lymphocytes (%) (Auto) 20 % (24-48) Monocytes (%) (Auto) 7 % (0-9) Eosinophils (%) (Auto) 3 % (0-3) Basophils (%) (Auto) 1 % (0-3) Neutrophils # (Auto) 4.7 x10^3uL (1.8-7.7) Lymphocytes # (Auto) 1.3 x10^3/uL (1.0-4.8) Monocytes # (Auto) 0.5 x10^3/uL (0.0-1.1) Eosinophils # (Auto) 0.2 x10^3/uL (0.0-0.7) Basophils # (Auto) 0.1 x10^3/uL (0.0-0.2) Glucose (Fingerstick) 75 mg/dL (70-99) O2 Saturation 96 % (92-99) Arterial Blood pH 7.40 (7.35-7.45) Arterial Blood pCO2 at Patient Temp 43 mmHg (35-46) Arterial Blood pO2 at Patient Temp 81 mmHg (75-108) Arterial Blood HCO3 26 mmol/L (21-28) Arterial Blood Base Excess 1 mmol/L (-3-3) FiO2 28 Test 09/24/17 03:50 White Blood Count 9.4 x10^3/uL (4.0-11.0) Red Blood Count 4.52 x10^6/uL (3.50-5.40) Hemoglobin 11.7 g/dL (12.0-15.5) Hematocrit 35.4 % (36.0-47.0) Mean Corpuscular Volume 78 fL (79-100) Mean Corpuscular Hemoglobin 26 pg (25-35) Mean Corpuscular Hemoglobin Concent 33 g/dL (31-37) Red Cell Distribution Width 17.2 % (11.5-14.5) Platelet Count 277 x10^3/uL (140-400) Neutrophils (%) (Auto) 83 % (31-73) Lymphocytes (%) (Auto) 11 % (24-48) Monocytes (%) (Auto) 6 % (0-9) Eosinophils (%) (Auto) 0 % (0-3) Basophils (%) (Auto) 0 % (0-3) Neutrophils # (Auto) 7.8 x10^3uL (1.8-7.7) Lymphocytes # (Auto) 1.0 x10^3/uL (1.0-4.8) Monocytes # (Auto) 0.6 x10^3/uL (0.0-1.1) Eosinophils # (Auto) 0.0 x10^3/uL (0.0-0.7) Basophils # (Auto) 0.0 x10^3/uL (0.0-0.2) Sodium Level 141 mmol/L (136-145) Potassium Level 4.3 mmol/L (3.5-5.1) Chloride Level 108 mmol/L (98-107) Carbon Dioxide Level 27 mmol/L (21-32) Anion Gap 6 (6-14) Blood Urea Nitrogen 18 mg/dL (7-20) Creatinine 0.6 mg/dL (0.6-1.0) Estimated GFR (Cockcroft-Gault) 108.6 Glucose Level 77 mg/dL (70-99) Calcium Level 8.5 mg/dL (8.5-10.1) Laboratory Tests Test 09/24/17 03:50 White Blood Count 9.4 x10^3/uL (4.0-11.0) Red Blood Count 4.52 x10^6/uL (3.50-5.40) Hemoglobin 11.7 g/dL (12.0-15.5) Hematocrit 35.4 % (36.0-47.0) Mean Corpuscular Volume 78 fL (79-100) Mean Corpuscular Hemoglobin 26 pg (25-35) Mean Corpuscular Hemoglobin Concent 33 g/dL (31-37) Red Cell Distribution Width 17.2 % (11.5-14.5) Platelet Count 277 x10^3/uL (140-400) Neutrophils (%) (Auto) 83 % (31-73) Lymphocytes (%) (Auto) 11 % (24-48) Monocytes (%) (Auto) 6 % (0-9) Eosinophils (%) (Auto) 0 % (0-3) Basophils (%) (Auto) 0 % (0-3) Neutrophils # (Auto) 7.8 x10^3uL (1.8-7.7) Lymphocytes # (Auto) 1.0 x10^3/uL (1.0-4.8) Monocytes # (Auto) 0.6 x10^3/uL (0.0-1.1) Eosinophils # (Auto) 0.0 x10^3/uL (0.0-0.7) Basophils # (Auto) 0.0 x10^3/uL (0.0-0.2) Sodium Level 141 mmol/L (136-145) Potassium Level 4.3 mmol/L (3.5-5.1) Chloride Level 108 mmol/L (98-107) Carbon Dioxide Level 27 mmol/L (21-32) Anion Gap 6 (6-14) Blood Urea Nitrogen 18 mg/dL (7-20) Creatinine 0.6 mg/dL (0.6-1.0) Estimated GFR (Cockcroft-Gault) 108.6 Glucose Level 77 mg/dL (70-99) Calcium Level 8.5 mg/dL (8.5-10.1) Microbiology 09/22/17 - Final, Resulted 09/22/17 - Final, Resulted 09/22/17 - Final, Resulted 09/22/17 Gram Stain Evaluation - Final, Resulted 09/22/17 Sputum Culture - Preliminary, Resulted 09/22/17 Sputum Result 1 - Final, Resulted 09/22/17 Urine Culture - Preliminary, Resulted 09/22/17 Urine Culture Result 1 ([place]) - Preliminary, Resulted Medications Current Medications Alprazolam (Xanax) 0.5 mg BID PO Last administered on 09/23/17 21:01; Start 09/22/17 at 21:00 Prednisone (Prednisone) 1 mg DAILY PO ; Start 09/23/17 at 09:00; Stop at 09:00; Status DC Baclofen (Lioresal) 20 mg TID PO Last administered on 09/24/17 12:40; Start 09/22/17 at 15:00 Non-Formulary Medication 240 mg BID PO ; Start 09/22/17 at 21:00; Stop at 22:34; Status DC Cetirizine HCl (ZyrTEC) 10 mg DAILY PO Last administered on 09/24/17 09:39; Start 09/22/17 at 15:00 Levofloxacin/ Dextrose (LEVAQUIN 750mg PREMIX) 750 mg Q24H IV Last administered on 09/22/17 18:00; Start 09/22/17 at 15:00; Stop 09/23/17 at 15 :33; Status DC Albuterol/ Ipratropium (Duoneb) 3 ml RTQID NEB Last administered on 09/24/17 10:44; Start 09/22/17 at 16:00 Budesonide (Pulmicort) 0.5 mg RTBID NEB Last administered on 09/24/17 06:52; Start 09/22/17 at 20:00 Prednisone (Prednisone) 40 mg DAILY PO ; Start 09/22/17 at 15:00; Stop at 15:00; Status DC Prednisone (Prednisone) 40 mg DAILY PO Last administered on 09/24/17 09:40; Start 09/23/17 at 09:00 Nicotine (Nicoderm Cq 14mg) 1 patch PRN DAILY PRN TD SMOKING CESSATION; Start 09/22/17 at 15:00 Tramadol HCl (Ultram) 50 mg PRN Q6HRS PRN PO MILD PAIN Last administered on 12:39; Start 09/22/17 at 15:00 Albuterol Sulfate (Ventolin Neb Soln) 2.5 mg PRN Q4HRS PRN NEB SHORTNESS OF BREATH; Start 09/22/17 at 15:00 Albuterol/ Ipratropium (Duoneb) 3 ml RTQID NEB ; Start 09/22/17 at 16:00; Stop 09/23/17 at 09:01; Status DC Enoxaparin Sodium (Lovenox Per Pharmacy Prophylaxis Dosing) 1 each PRN DAILY PRN MC SEE COMMENTS; Start 09/22/17 at 15:00 Enoxaparin Sodium (Lovenox 40mg Syringe) 40 mg Q24H SQ Last administered on 18:11; Start 09/22/17 at 16:00 Oxycodone/ Acetaminophen (Percocet 5/325) 1 tab PRN Q6HRS PRN PO MODERATE- SEVERE PAIN Last administered on 09/23/17 01:42; Start 09/22/17 at 16:00 Zolpidem Tartrate (Ambien) 5 mg PRN QHS PRN PO INSOMNIA; Start 09/22/17 at 16: 00 Polyethylene Glycol (miraLAX PACKET) 17 gm PRN DAILY PRN PO CONSTIPATION; Start 09/22/17 at 16:00 Ascorbic Acid (Vitamin C) 500 mg DAILY PO Last administered on 09/24/17 09:40 ; Start 09/23/17 at 09:00 Zinc Sulfate (Orazinc) 220 mg DAILY PO Last administered on 09/24/17 09:40; Start 09/23/17 at 09:00 Multivitamins (Thera M Plus) 1 tab DAILY PO Last administered on 09/24/17 09: 40; Start 09/23/17 at 09:00 Vitamin D (Vitamin D3) 1,000 unit DAILY PO Last administered on 09/24/17 09: 40; Start 09/23/17 at 09:00 Influenza Virus Vaccine Quadrival (Fluarix Quad [id number] Syringe) 0.5 ml ONCE ONCE VAX IM Last administered on 09/22/17 23:10; Start 09/22/17 at 19:15; Stop 09/22/17 at 19:16; Status DC Sodium Chloride 500 ml @ 500 mls/hr 1X ONCE IV Last administered on 08:15; Start 09/23/17 at 08:15; Stop 09/23/17 at 09:14; Status DC Famotidine (Pepcid) 20 mg QHS PO Last administered on 09/23/17 21:01; Start 09/23/17 at 21:00 Levofloxacin (Levaquin) 500 mg DAILY06 PO Last administered on 09/24/17 06:40 ; Start 09/23/17 at 17:00 Lactobacillus Rhamnosus (Culturelle) 1 cap BID PO Last administered on t 09:40; Start 09/23/17 at 21:00 Active Scripts Active Reported [bladder spasms ] Prednisone 1 Mg Tablet 1 Mg PO DAILY Loratadine 10 Mg Tablet 1 Tab PO DAILY [levaquin] 750 Mg IV DAILY Tecfidera (Dimethyl Fumarate) 240 Mg Capsule.dr 240 Mg PO BID Baclofen 20 Mg Tablet 1 Tab PO TID Xanax (Alprazolam) 0.5 Mg Tablet 1 Tab PO BID Vitals/I & O Vital Sign - Last 24 Hours 09/23/17 09/23/17 09/23/17 09/23/17 15:00 15:43 19:00 19:50 Temp 98.0 98.7 98.0 98.7 Pulse 83 98 Resp 18 18 B/P (MAP) 83/50 (61) 84/48 (60) Pulse Ox 97 96 O2 Delivery Room Air Nasal Cannula Room Air Room Air O2 Flow Rate 2.0 09/23/17 09/23/17 09/23/17 09/23/17 20:31 21:02 22:10 23:00 Temp 98.3 98.3 Pulse 92 Resp 17 17 18 B/P (MAP) 78/50 (59) Pulse Ox 97 97 97 96 O2 Delivery Room Air Nasal Cannula Room Air 09/24/17 09/24/17 09/24/17 09/24/17 03:00 06:53 07:00 08:20 Temp 98.4 97.4 98.4 97.4 Pulse 78 68 Resp 18 16 B/P (MAP) 100/64 (76) 93/58 (70) Pulse Ox 96 94 93 O2 Delivery Room Air Room Air Room Air Room Air 09/24/17 09/24/17 09/24/17 09/24/17 10:45 11:00 12:39 14:08 Temp 97.9 97.9 Pulse 89 Resp 18 B/P (MAP) 90/62 (71) Pulse Ox 98 O2 Delivery Room Air Room Air Room Air Room Air Intake and Output 09/23/17 09/23/17 09/24/17 14:59 22:59 06:59 Intake Total 900 ml Output Total 450 ml 1750 ml Balance -450 ml -850 ml TED OLIVARES MD Sep 24, 2017 14:41
[2017-09-24 15:00] VITALS: BP 90/55
[2017-09-24 16:00] VITALS: BP 126/80
[2017-09-24] MEDS: ENOXAPARIN 40 MG/0.4 ML SYRINGE. SQ SCH (18:08)
[2017-09-24] MEDS: FAMOTIDINE 20 MG TABLET. PO SCH (21:11)
[2017-09-24] MEDS: oxyCODONE/APAP 5/325 1 TAB TABLET PO PRN (21:15)
[2017-09-24 23:04] VITALS: BP 86/49
[2017-09-25 03:15] VITALS: BP 89/48
[2017-09-25] MEDS: BUDESONIDE 0.5 MG/2 ML NEBU. NEB SCH ×2 (05:52→19:35)
[2017-09-25] MEDS: IPRATRPIUM/ALBUTEROL 0.5/2.5MG 3 ML NEBU. NEB SCH ×4 (05:52→19:35)
[2017-09-25 07:00] VITALS: BP 83/43
[2017-09-25] MEDS: ASCORBIC ACID 500 MG TABLET PO SCH (09:13)
[2017-09-25] MEDS: MULTIVITAMIN with MINERAL TABLET. PO SCH (09:13)
[2017-09-25] MEDS: LACTOBACILLUS RHAMNOSUS GG 1 CAPSULE. PO SCH ×2 (09:13→20:40)
[2017-09-25] MEDS: ZINC SULFATE 220 MG CAPSULE. PO SCH (09:13)
[2017-09-25] MEDS: CHOLECALCIFEROL (VITAMIN D3) 1,000 UNIT TABLET PO SCH (09:13)
[2017-09-25] MEDS: BACLOFEN 10 MG TABLET. PO SCH ×3 (09:13→20:40)
[2017-09-25] MEDS: CETIRIZINE HCL 10 MG TABLET. PO SCH (09:13)
[2017-09-25] MEDS: predniSONE 20 MG TABLET PO SCH (09:13)
[2017-09-25] MEDS: ALPRAZolam 0.5 MG TABLET PO SCH ×2 (09:14→20:40)
[2017-09-25] MEDS: oxyCODONE/APAP 5/325 1 TAB TABLET PO PRN ×2 (10:36→20:40)
[2017-09-25 11:00] VITALS: BP 90/50
[2017-09-25] MEDS ORDERED: DULO30CA2 PO (11:34)
--- NOTE | 2017-09-25 12:35 | PDOC ---
PROGRESS NOTES Chief Complaint Chief Complaint acute dyspnea, small mucus plug COPD UTI chronic martini due to incontinence and sacral ulcer MS, marked weakness, bedbound sacral ulcer tobaccoism back pain mild malnutrition chronic low BP at 70-80s History of Present Illness History of Present Illness ROS: no fever, chills, sob or chest pain low BP is baseline pt told me her Baseline BP runs low 70-80s pt looks more alert, sitting up straight, can feed herself OK, sticking to finger food need NC 2L bed bound with MS dc soon to SNF Vitals Vitals Vital Signs Date Time Temp Pulse Resp B/P (MAP) Pulse Ox O2 Delivery O2 Flow Rate FiO2 09/25/17 12:15 96 Room Air 09/25/17 11:00 97.7 78 16 90/50 (63) 97.7 09/24/17 20:00 2.0 Physical Exam General: Alert, Cooperative, mild distress Heart: Regular rate, Normal S1 Lungs: Clear Abdomen: Normal bowel sounds, Soft Extremities: No clubbing, No edema Skin: No rashes, No breakdown, No significant lesion Review of Systems Review of Systems no n..v/d Comment Review of Relevant I have reviewed the following items lupe (where applicable) has been applied. Labs Laboratory Tests Test 09/24/17 03:50 White Blood Count 9.4 x10^3/uL (4.0-11.0) Red Blood Count 4.52 x10^6/uL (3.50-5.40) Hemoglobin 11.7 g/dL (12.0-15.5) Hematocrit 35.4 % (36.0-47.0) Mean Corpuscular Volume 78 fL (79-100) Mean Corpuscular Hemoglobin 26 pg (25-35) Mean Corpuscular Hemoglobin Concent 33 g/dL (31-37) Red Cell Distribution Width 17.2 % (11.5-14.5) Platelet Count 277 x10^3/uL (140-400) Neutrophils (%) (Auto) 83 % (31-73) Lymphocytes (%) (Auto) 11 % (24-48) Monocytes (%) (Auto) 6 % (0-9) Eosinophils (%) (Auto) 0 % (0-3) Basophils (%) (Auto) 0 % (0-3) Neutrophils # (Auto) 7.8 x10^3uL (1.8-7.7) Lymphocytes # (Auto) 1.0 x10^3/uL (1.0-4.8) Monocytes # (Auto) 0.6 x10^3/uL (0.0-1.1) Eosinophils # (Auto) 0.0 x10^3/uL (0.0-0.7) Basophils # (Auto) 0.0 x10^3/uL (0.0-0.2) Sodium Level 141 mmol/L (136-145) Potassium Level 4.3 mmol/L (3.5-5.1) Chloride Level 108 mmol/L (98-107) Carbon Dioxide Level 27 mmol/L (21-32) Anion Gap 6 (6-14) Blood Urea Nitrogen 18 mg/dL (7-20) Creatinine 0.6 mg/dL (0.6-1.0) Estimated GFR (Cockcroft-Gault) 108.6 Glucose Level 77 mg/dL (70-99) Calcium Level 8.5 mg/dL (8.5-10.1) Microbiology 09/22/17 - Final, Complete 09/22/17 - Final, Complete 09/22/17 - Final, Complete 09/22/17 Gram Stain Evaluation - Final, Complete 09/22/17 Sputum Culture - Final, Complete 09/22/17 Sputum Result 1 - Final, Complete 09/22/17 Urine Culture - Final, Complete 09/22/17 Urine Culture Result 1 ([place]) - Final, Complete Medications Current Medications Alprazolam (Xanax) 0.5 mg BID PO Last administered on 09/24/17 21:11; Start 09/22/17 at 21:00 Prednisone (Prednisone) 1 mg DAILY PO ; Start 09/23/17 at 09:00; Stop at 09:00; Status DC Baclofen (Lioresal) 20 mg TID PO Last administered on 09/25/17 09:13; Start 09/22/17 at 15:00 Non-Formulary Medication 240 mg BID PO ; Start 09/22/17 at 21:00; Stop at 22:34; Status DC Cetirizine HCl (ZyrTEC) 10 mg DAILY PO Last administered on 09/25/17 09:13; Start 09/22/17 at 15:00 Levofloxacin/ Dextrose (LEVAQUIN 750mg PREMIX) 750 mg Q24H IV Last administered on 09/22/17 18:00; Start 09/22/17 at 15:00; Stop 09/23/17 at 15 :33; Status DC Albuterol/ Ipratropium (Duoneb) 3 ml RTQID NEB Last administered on 09/25/17 12:15; Start 09/22/17 at 16:00 Budesonide (Pulmicort) 0.5 mg RTBID NEB Last administered on 09/25/17 05:52; Start 09/22/17 at 20:00 Prednisone (Prednisone) 40 mg DAILY PO ; Start 09/22/17 at 15:00; Stop at 15:00; Status DC Prednisone (Prednisone) 40 mg DAILY PO Last administered on 09/25/17 09:13; Start 09/23/17 at 09:00 Nicotine (Nicoderm Cq 14mg) 1 patch PRN DAILY PRN TD SMOKING CESSATION; Start 09/22/17 at 15:00 Tramadol HCl (Ultram) 50 mg PRN Q6HRS PRN PO MILD PAIN Last administered on 12:39; Start 09/22/17 at 15:00 Albuterol Sulfate (Ventolin Neb Soln) 2.5 mg PRN Q4HRS PRN NEB SHORTNESS OF BREATH; Start 09/22/17 at 15:00 Albuterol/ Ipratropium (Duoneb) 3 ml RTQID NEB ; Start 09/22/17 at 16:00; Stop 09/23/17 at 09:01; Status DC Enoxaparin Sodium (Lovenox Per Pharmacy Prophylaxis Dosing) 1 each PRN DAILY PRN MC SEE COMMENTS; Start 09/22/17 at 15:00 Enoxaparin Sodium (Lovenox 40mg Syringe) 40 mg Q24H SQ Last administered on 18:08; Start 09/22/17 at 16:00 Oxycodone/ Acetaminophen (Percocet 5/325) 1 tab PRN Q6HRS PRN PO MODERATE- SEVERE PAIN Last administered on 09/25/17 10:36; Start 09/22/17 at 16:00 Zolpidem Tartrate (Ambien) 5 mg PRN QHS PRN PO INSOMNIA; Start 09/22/17 at 16: 00 Polyethylene Glycol (miraLAX PACKET) 17 gm PRN DAILY PRN PO CONSTIPATION; Start 09/22/17 at 16:00 Ascorbic Acid (Vitamin C) 500 mg DAILY PO Last administered on 09/25/17 09:13 ; Start 09/23/17 at 09:00 Zinc Sulfate (Orazinc) 220 mg DAILY PO Last administered on 09/25/17 09:13; Start 09/23/17 at 09:00 Multivitamins (Thera M Plus) 1 tab DAILY PO Last administered on 09/25/17 09: 13; Start 09/23/17 at 09:00 Vitamin D (Vitamin D3) 1,000 unit DAILY PO Last administered on 09/25/17 09: 13; Start 09/23/17 at 09:00 Influenza Virus Vaccine Quadrival (Fluarix Quad [id number] Syringe) 0.5 ml ONCE ONCE VAX IM Last administered on 09/22/17 23:10; Start 09/22/17 at 19:15; Stop 09/22/17 at 19:16; Status DC Sodium Chloride 500 ml @ 500 mls/hr 1X ONCE IV Last administered on 08:15; Start 09/23/17 at 08:15; Stop 09/23/17 at 09:14; Status DC Famotidine (Pepcid) 20 mg QHS PO Last administered on 09/24/17 21:11; Start 09/23/17 at 21:00 Levofloxacin (Levaquin) 500 mg DAILY06 PO Last administered on 09/25/17 05:21 ; Start 09/23/17 at 17:00 Lactobacillus Rhamnosus (Culturelle) 1 cap BID PO Last administered on 09:13; Start 09/23/17 at 21:00 Citalopram Hydrobromide (CeleXA) 20 mg DAILY PO ; Start 09/25/17 at 12:00 Active Scripts Active Reported Cymbalta (Duloxetine Hcl) 30 Mg Capsule.dr 1 Cap PO DAILY [bladder spasms ] Prednisone 1 Mg Tablet 1 Mg PO DAILY Loratadine 10 Mg Tablet 1 Tab PO DAILY [levaquin] 750 Mg IV DAILY Tecfidera (Dimethyl Fumarate) 240 Mg Capsule.dr 240 Mg PO BID Baclofen 20 Mg Tablet 1 Tab PO TID Xanax (Alprazolam) 0.5 Mg Tablet 1 Tab PO BID Vitals/I & O Vital Sign - Last 24 Hours 09/24/17 09/24/17 09/24/17 09/24/17 12:39 14:08 15:00 15:11 Temp 98.1 98.1 Pulse 109 Resp 16 B/P (MAP) 90/55 (67) Pulse Ox 97 O2 Delivery Room Air Room Air Room Air Room Air 09/24/17 09/24/17 09/24/17 09/24/17 16:00 19:00 20:00 20:41 Pulse 77 B/P (MAP) 126/80 (95) Pulse Ox 94 96 O2 Delivery Room Air Room Air Room Air Room Air O2 Flow Rate 2.0 09/24/17 09/24/17 09/24/17 09/24/17 20:43 21:15 22:21 23:04 Temp 98.2 98.2 Pulse 101 Resp 16 B/P (MAP) 86/49 (61) Pulse Ox 96 96 96 95 O2 Delivery Room Air Room Air Room Air Room Air 09/25/17 09/25/17 09/25/17 09/25/17 03:15 05:54 05:58 07:00 Temp 98.4 97.5 98.4 97.5 Pulse 90 92 Resp 16 18 B/P (MAP) 89/48 (62) 83/43 (56) Pulse Ox 98 97 97 96 O2 Delivery Room Air Room Air Room Air Room Air 09/25/17 09/25/17 09/25/17 10:36 11:00 12:15 Temp 97.7 97.7 Pulse 78 Resp 16 B/P (MAP) 90/50 (63) Pulse Ox 96 96 O2 Delivery Room Air Room Air Room Air Intake and Output 09/24/17 09/24/17 09/25/17 15:00 23:00 07:00 Intake Total 240 ml 740 ml Output Total 1600 ml 1200 ml Balance 240 ml -1600 ml -460 ml JENI LÓPEZ MD Sep 25, 2017 12:35
[2017-09-25 15:00] VITALS: BP 84/53
[2017-09-25] MEDS: CITALOPRAM 20 MG TABLET. PO SCH (15:21)
[2017-09-25] MEDS: ENOXAPARIN 40 MG/0.4 ML SYRINGE. SQ SCH (15:21)
[2017-09-25 19:00] VITALS: BP 109/49
[2017-09-25] MEDS: FAMOTIDINE 20 MG TABLET. PO SCH (20:40)
[2017-09-25 23:00] VITALS: BP 110/49
[2017-09-26 03:00] VITALS: BP 92/61
[2017-09-26] MEDS: IPRATRPIUM/ALBUTEROL 0.5/2.5MG 3 ML NEBU. NEB SCH ×4 (07:21→20:48)
[2017-09-26] MEDS: BUDESONIDE 0.5 MG/2 ML NEBU. NEB SCH ×2 (07:21→20:48)
[2017-09-26 07:45] VITALS: BP 88/46
[2017-09-26] MEDS: BACLOFEN 10 MG TABLET. PO SCH ×3 (08:25→21:05)
[2017-09-26] MEDS: ZINC SULFATE 220 MG CAPSULE. PO SCH (08:25)
[2017-09-26] MEDS: ASCORBIC ACID 500 MG TABLET PO SCH (08:25)
[2017-09-26] MEDS: CETIRIZINE HCL 10 MG TABLET. PO SCH (08:25)
[2017-09-26] MEDS: CHOLECALCIFEROL (VITAMIN D3) 1,000 UNIT TABLET PO SCH (08:25)
[2017-09-26] MEDS: CITALOPRAM 20 MG TABLET. PO SCH (08:25)
[2017-09-26] MEDS: MULTIVITAMIN with MINERAL TABLET. PO SCH (08:26)
[2017-09-26] MEDS: predniSONE 20 MG TABLET PO SCH (08:26)
[2017-09-26] MEDS: LACTOBACILLUS RHAMNOSUS GG 1 CAPSULE. PO SCH ×2 (08:26→21:05)
[2017-09-26] MEDS: ALPRAZolam 0.5 MG TABLET PO SCH ×2 (08:34→21:05)
[2017-09-26 11:00] VITALS: BP 98/56
--- NOTE | 2017-09-26 11:08 | PDOC ---
PULMONARY PROGRESS NOTES Subjective no soa Vitals Vital Signs Date Time Temp Pulse Resp B/P (MAP) Pulse Ox O2 Delivery O2 Flow Rate FiO2 09/26/17 10:57 Room Air 09/26/17 07:45 97.9 68 16 88/46 (60) 93 97.9 General: Alert, No acute distress Lungs: Clear Cardiovascular: S1 Abdomen: Soft Neuro Exam: Alert Extremities: No Edema Skin: Warm Medications Active Scripts Medications Dose Route/Sig Max Daily Dose Days Date Category [bladder spasms ] 09/22/17 Reported Prednisone 1 Mg Tablet 1 Mg PO DAILY 04/27/17 Reported Loratadine 10 Mg Tablet 1 Tab PO DAILY 04/27/17 Reported [levaquin] 750 Mg IV DAILY 04/27/17 Reported Tecfidera (Dimethyl Fumarate) 240 Mg Capsule.dr 240 Mg PO BID 04/27/17 Reported Baclofen 20 Mg Tablet 1 Tab PO TID 04/27/17 Reported Xanax (Alprazolam) 0.5 Mg Tablet 1 Tab PO BID 04/27/17 Reported Impression . 1. Abnormal CT chest with tiny mucus secretions seen in the right mainstem bronchus. This does not need any invasive procedure such as bronchoscopy and at this point, aggressive pulmonary toilet would be reasonable. 2. Longstanding history of multiple sclerosis. 3. Tiny 2 mm subpleural noncalcified nodule which does not need any followup. She is a nonsmoker. 4. No definite pneumonia seen on the CT chest. Plan . 1. Incentive spirometry. 2. DuoNeb. 3. off oxygen. 4. dc plans per PCP/ Awaiting placement NARCISA BURTON MD Sep 26, 2017 11:08
[2017-09-26] MEDS: oxyCODONE/APAP 5/325 1 TAB TABLET PO PRN ×2 (13:25→21:06)
[2017-09-26 15:00] VITALS: BP 101/61
[2017-09-26] MEDS: ENOXAPARIN 40 MG/0.4 ML SYRINGE. SQ SCH (16:58)
--- NOTE | 2017-09-26 17:01 | PDOC ---
PROGRESS NOTES Chief Complaint Chief Complaint acute dyspnea, small mucus plug COPD UTI chronic martini due to incontinence and sacral ulcer MS, marked weakness, bedbound sacral ulcer tobaccoism back pain mild malnutrition chronic low BP weakness and debility, needs rehab placement History of Present Illness History of Present Illness ROS: no fever, chills, sob or chest pain low BP is baseline her Baseline BP runs low pt looks more alert, sitting up straight, can feed herself OK, sticking to finger food need NC 2L bed bound with MS dc soon to SNF Vitals Vitals Vital Signs Date Time Temp Pulse Resp B/P (MAP) Pulse Ox O2 Delivery O2 Flow Rate FiO2 09/26/17 16:11 Room Air 09/26/17 11:00 98.1 100 18 98/56 (70) 97 98.1 Physical Exam General: Alert, Cooperative, mild distress Heart: Regular rate, Normal S1 Lungs: Clear Abdomen: Normal bowel sounds, Soft Extremities: No clubbing, No edema Skin: No rashes, No breakdown, No significant lesion Labs LABS Laboratory Tests Test 09/26/17 06:38 Nasal Screen MRSA (PCR) Negative (Negative) Comment Review of Relevant I have reviewed the following items lupe (where applicable) has been applied. Labs Laboratory Tests Test 09/26/17 06:38 Nasal Screen MRSA (PCR) Negative (Negative) Laboratory Tests Test 09/26/17 06:38 Nasal Screen MRSA (PCR) Negative (Negative) Microbiology 09/22/17 - Final, Complete 09/22/17 - Final, Complete 09/22/17 - Final, Complete 09/22/17 Gram Stain Evaluation - Final, Complete 09/22/17 Sputum Culture - Final, Complete 09/22/17 Sputum Result 1 - Final, Complete 09/22/17 Urine Culture - Final, Complete 09/22/17 Urine Culture Result 1 (SULTANA) - Final, Complete Medications Current Medications Alprazolam (Xanax) 0.5 mg BID PO Last administered on 09/25/17 20:40; Start 09/22/17 at 21:00 Prednisone (Prednisone) 1 mg DAILY PO ; Start 09/23/17 at 09:00; Stop at 09:00; Status DC Baclofen (Lioresal) 20 mg TID PO Last administered on 09/26/17 13:26; Start 09/22/17 at 15:00 Non-Formulary Medication 240 mg BID PO ; Start 09/22/17 at 21:00; Stop at 22:34; Status DC Cetirizine HCl (ZyrTEC) 10 mg DAILY PO Last administered on 09/26/17 08:25; Start 09/22/17 at 15:00 Levofloxacin/ Dextrose (LEVAQUIN 750mg PREMIX) 750 mg Q24H IV Last administered on 09/22/17 18:00; Start 09/22/17 at 15:00; Stop 09/23/17 at 15 :33; Status DC Albuterol/ Ipratropium (Duoneb) 3 ml RTQID NEB Last administered on 09/26/17 16:11; Start 09/22/17 at 16:00 Budesonide (Pulmicort) 0.5 mg RTBID NEB Last administered on 09/26/17 07:21; Start 09/22/17 at 20:00 Prednisone (Prednisone) 40 mg DAILY PO ; Start 09/22/17 at 15:00; Stop at 15:00; Status DC Prednisone (Prednisone) 40 mg DAILY PO Last administered on 09/26/17 08:26; Start 09/23/17 at 09:00 Nicotine (Nicoderm Cq 14mg) 1 patch PRN DAILY PRN TD SMOKING CESSATION; Start 09/22/17 at 15:00 Tramadol HCl (Ultram) 50 mg PRN Q6HRS PRN PO MILD PAIN Last administered on 12:39; Start 09/22/17 at 15:00 Albuterol Sulfate (Ventolin Neb Soln) 2.5 mg PRN Q4HRS PRN NEB SHORTNESS OF BREATH; Start 09/22/17 at 15:00 Albuterol/ Ipratropium (Duoneb) 3 ml RTQID NEB ; Start 09/22/17 at 16:00; Stop 09/23/17 at 09:01; Status DC Enoxaparin Sodium (Lovenox Per Pharmacy Prophylaxis Dosing) 1 each PRN DAILY PRN MC SEE COMMENTS; Start 09/22/17 at 15:00 Enoxaparin Sodium (Lovenox 40mg Syringe) 40 mg Q24H SQ Last administered on 16:58; Start 09/22/17 at 16:00 Oxycodone/ Acetaminophen (Percocet 5/325) 1 tab PRN Q6HRS PRN PO MODERATE- SEVERE PAIN Last administered on 09/26/17 13:25; Start 09/22/17 at 16:00 Zolpidem Tartrate (Ambien) 5 mg PRN QHS PRN PO INSOMNIA; Start 09/22/17 at 16: 00 Polyethylene Glycol (miraLAX PACKET) 17 gm PRN DAILY PRN PO CONSTIPATION; Start 09/22/17 at 16:00 Ascorbic Acid (Vitamin C) 500 mg DAILY PO Last administered on 09/26/17 08:25 ; Start 09/23/17 at 09:00 Zinc Sulfate (Orazinc) 220 mg DAILY PO Last administered on 09/26/17 08:25; Start 09/23/17 at 09:00 Multivitamins (Thera M Plus) 1 tab DAILY PO Last administered on 09/26/17 08: 26; Start 09/23/17 at 09:00 Vitamin D (Vitamin D3) 1,000 unit DAILY PO Last administered on 09/26/17 08: 25; Start 09/23/17 at 09:00 Influenza Virus Vaccine Quadrival (Fluarix Quad 0020-1209 Syringe) 0.5 ml ONCE ONCE VAX IM Last administered on 09/22/17 23:10; Start 09/22/17 at 19:15; Stop 09/22/17 at 19:16; Status DC Sodium Chloride 500 ml @ 500 mls/hr 1X ONCE IV Last administered on 08:15; Start 09/23/17 at 08:15; Stop 09/23/17 at 09:14; Status DC Famotidine (Pepcid) 20 mg QHS PO Last administered on 09/25/17 20:40; Start 09/23/17 at 21:00 Levofloxacin (Levaquin) 500 mg DAILY06 PO Last administered on 09/26/17 06:36 ; Start 09/23/17 at 17:00 Lactobacillus Rhamnosus (Culturelle) 1 cap BID PO Last administered on 08:26; Start 09/23/17 at 21:00 Citalopram Hydrobromide (CeleXA) 20 mg DAILY PO Last administered on 08:25; Start 09/25/17 at 12:00 Active Scripts Active Reported Cymbalta (Duloxetine Hcl) 30 Mg Capsule. 1 Cap PO DAILY [bladder spasms ] Prednisone 1 Mg Tablet 1 Mg PO DAILY Loratadine 10 Mg Tablet 1 Tab PO DAILY [levaquin] 750 Mg IV DAILY Tecfidera (Dimethyl Fumarate) 240 Mg Capsule. 240 Mg PO BID Baclofen 20 Mg Tablet 1 Tab PO TID Xanax (Alprazolam) 0.5 Mg Tablet 1 Tab PO BID Vitals/I & O Vital Sign - Last 24 Hours 09/25/17 09/25/17 09/25/17 09/25/17 19:00 19:36 19:38 20:00 Temp 97.7 97.7 Pulse 101 Resp 18 B/P (MAP) 109/49 (69) Pulse Ox 91 93 93 O2 Delivery Room Air Room Air Room Air Room Air 09/25/17 09/25/17 09/25/17 09/25/17 20:40 21:40 22:34 23:00 Temp 97.7 97.7 Pulse 98 Resp 20 20 18 B/P (MAP) 110/49 (69) Pulse Ox 93 93 93 O2 Delivery Room Air Room Air Room Air 09/26/17 09/26/17 09/26/17 09/26/17 03:00 07:23 07:45 08:20 Temp 97.6 97.9 97.6 97.9 Pulse 71 68 Resp 18 16 B/P (MAP) 92/61 (71) 88/46 (60) Pulse Ox 97 95 93 O2 Delivery Room Air Room Air Room Air Room Air 09/26/17 09/26/17 09/26/17 09/26/17 10:57 11:00 13:25 14:50 Temp 98.1 98.1 Pulse 100 Resp 18 B/P (MAP) 98/56 (70) Pulse Ox 97 O2 Delivery Room Air Room Air Room Air Room Air 09/26/17 16:11 O2 Delivery Room Air Intake and Output 09/25/17 09/25/17 09/26/17 15:00 23:00 07:00 Intake Total 120 ml 150 ml Output Total 300 ml 310 ml Balance 120 ml -300 ml -160 ml JNEI LÓPEZ MD Sep 26, 2017 17:01
[2017-09-26 19:00] VITALS: BP 92/56
[2017-09-26] MEDS: FAMOTIDINE 20 MG TABLET. PO SCH (21:05)
[2017-09-26 23:00] VITALS: BP 88/51
[2017-09-27 03:00] VITALS: BP 105/63
[2017-09-27] MEDS: oxyCODONE/APAP 5/325 1 TAB TABLET PO PRN ×2 (05:01→18:39)
[2017-09-27 07:00] VITALS: BP 110/77
[2017-09-27] MEDS: BUDESONIDE 0.5 MG/2 ML NEBU. NEB SCH ×2 (07:21→20:13)
[2017-09-27] MEDS: IPRATRPIUM/ALBUTEROL 0.5/2.5MG 3 ML NEBU. NEB SCH ×4 (07:21→20:13)
[2017-09-27] MEDS: CETIRIZINE HCL 10 MG TABLET. PO SCH (08:32)
[2017-09-27] MEDS: ZINC SULFATE 220 MG CAPSULE. PO SCH (08:32)
[2017-09-27] MEDS: LACTOBACILLUS RHAMNOSUS GG 1 CAPSULE. PO SCH ×2 (08:32→21:39)
[2017-09-27] MEDS: ASCORBIC ACID 500 MG TABLET PO SCH (08:32)
[2017-09-27] MEDS: predniSONE 20 MG TABLET PO SCH (08:32)
[2017-09-27] MEDS: ALPRAZolam 0.5 MG TABLET PO SCH ×2 (08:33→21:40)
[2017-09-27] MEDS: MULTIVITAMIN with MINERAL TABLET. PO SCH (08:33)
[2017-09-27] MEDS: CITALOPRAM 20 MG TABLET. PO SCH (08:33)
[2017-09-27] MEDS: CHOLECALCIFEROL (VITAMIN D3) 1,000 UNIT TABLET PO SCH (08:33)
[2017-09-27] MEDS: BACLOFEN 10 MG TABLET. PO SCH ×3 (08:33→21:42)
[2017-09-27 11:00] VITALS: BP 90/55
--- NOTE | 2017-09-27 13:38 | PDOC ---
PROGRESS NOTES Chief Complaint Chief Complaint acute dyspnea, small mucus plug COPD UTI chronic martini due to incontinence and sacral ulcer MS, marked weakness, bedbound sacral ulcer tobaccoism back pain mild malnutrition chronic low BP weakness and debility, needs rehab placement History of Present Illness History of Present Illness pt looks alert, sitting up straight, can feed herself OK, No acute distress. bed bound with MS Pt informed us about her hx of MS and Factor 5 leiden mutation Probable dc soon to SNU Vitals Vitals Vital Signs Date Time Temp Pulse Resp B/P (MAP) Pulse Ox O2 Delivery O2 Flow Rate FiO2 09/27/17 11:15 Room Air 09/27/17 11:00 98.0 84 18 90/55 (67) 97 98.0 Physical Exam General: Alert, Oriented X3, Cooperative, No acute distress Heart: Regular rate, Normal S1 Lungs: Clear Abdomen: Normal bowel sounds Extremities: No clubbing, No edema Skin: No rashes, No breakdown, No significant lesion Review of Systems Review of Systems General: NO fever, chills, night sweats CV: No chest pain, palpitations Assessment and Plan Assessmemt and Plan Assessment: acute dyspnea, small mucus plug COPD UTI chronic martini due to incontinence and sacral ulcer MS, marked weakness, bedbound sacral ulcer tobaccoism back pain mild malnutrition chronic low BP weakness and debility, needs rehab placement Plan: Continue Antibiotics Continue Breathing treatment Awaiting Pulmonology Input Consult Neurology (MS) Recheck labs in morning PT/OT Probable SNU on discharge Problems: Comment Review of Relevant I have reviewed the following items lupe (where applicable) has been applied. Labs Laboratory Tests Test 09/26/17 06:38 Nasal Screen MRSA (PCR) Negative (Negative) Microbiology 09/22/17 - Final, Complete 09/22/17 - Final, Complete 09/22/17 - Final, Complete 09/22/17 Gram Stain Evaluation - Final, Complete 09/22/17 Sputum Culture - Final, Complete 09/22/17 Sputum Result 1 - Final, Complete 09/22/17 Urine Culture - Final, Complete 09/22/17 Urine Culture Result 1 (SULTANA) - Final, Complete Medications Current Medications Alprazolam (Xanax) 0.5 mg BID PO Last administered on 09/27/17t 08:33; Start 09/22/17 at 21:00 Prednisone (Prednisone) 1 mg DAILY PO ; Start 09/23/17 at 09:00; Stop at 09:00; Status DC Baclofen (Lioresal) 20 mg TID PO Last administered on 09/27/17 08:33; Start 09/22/17 at 15:00 Non-Formulary Medication 240 mg BID PO ; Start 09/22/17 at 21:00; Stop at 22:34; Status DC Cetirizine HCl (ZyrTEC) 10 mg DAILY PO Last administered on 09/27/17 08:32; Start 09/22/17 at 15:00 Levofloxacin/ Dextrose (LEVAQUIN 750mg PREMIX) 750 mg Q24H IV Last administered on 09/22/17 18:00; Start 09/22/17 at 15:00; Stop 09/23/17 at 15 :33; Status DC Albuterol/ Ipratropium (Duoneb) 3 ml RTQID NEB Last administered on 09/27/17 11:14; Start 09/22/17 at 16:00 Budesonide (Pulmicort) 0.5 mg RTBID NEB Last administered on 09/27/17 07:21; Start 09/22/17 at 20:00 Prednisone (Prednisone) 40 mg DAILY PO ; Start 09/22/17 at 15:00; Stop at 15:00; Status DC Prednisone (Prednisone) 40 mg DAILY PO Last administered on 09/27/17 08:32; Start 09/23/17 at 09:00 Nicotine (Nicoderm Cq 14mg) 1 patch PRN DAILY PRN TD SMOKING CESSATION; Start 09/22/17 at 15:00 Tramadol HCl (Ultram) 50 mg PRN Q6HRS PRN PO MILD PAIN Last administered on 12:39; Start 09/22/17 at 15:00 Albuterol Sulfate (Ventolin Neb Soln) 2.5 mg PRN Q4HRS PRN NEB SHORTNESS OF BREATH; Start 09/22/17 at 15:00 Albuterol/ Ipratropium (Duoneb) 3 ml RTQID NEB ; Start 09/22/17 at 16:00; Stop 09/23/17 at 09:01; Status DC Enoxaparin Sodium (Lovenox Per Pharmacy Prophylaxis Dosing) 1 each PRN DAILY PRN MC SEE COMMENTS; Start 09/22/17 at 15:00 Enoxaparin Sodium (Lovenox 40mg Syringe) 40 mg Q24H SQ Last administered on 16:58; Start 09/22/17 at 16:00 Oxycodone/ Acetaminophen (Percocet 5/325) 1 tab PRN Q6HRS PRN PO MODERATE- SEVERE PAIN Last administered on 09/27/17 05:01; Start 09/22/17 at 16:00 Zolpidem Tartrate (Ambien) 5 mg PRN QHS PRN PO INSOMNIA; Start 09/22/17 at 16: 00 Polyethylene Glycol (miraLAX PACKET) 17 gm PRN DAILY PRN PO CONSTIPATION; Start 09/22/17 at 16:00 Ascorbic Acid (Vitamin C) 500 mg DAILY PO Last administered on 09/27/17 08:32 ; Start 09/23/17 at 09:00 Zinc Sulfate (Orazinc) 220 mg DAILY PO Last administered on 09/27/17 08:32; Start 09/23/17 at 09:00 Multivitamins (Thera M Plus) 1 tab DAILY PO Last administered on 09/27/17 08: 33; Start 09/23/17 at 09:00 Vitamin D (Vitamin D3) 1,000 unit DAILY PO Last administered on 09/27/17 08: 33; Start 09/23/17 at 09:00 Influenza Virus Vaccine Quadrival (Fluarix Quad 0308-4150 Syringe) 0.5 ml ONCE ONCE VAX IM Last administered on 09/22/17 23:10; Start 09/22/17 at 19:15; Stop 09/22/17 at 19:16; Status DC Sodium Chloride 500 ml @ 500 mls/hr 1X ONCE IV Last administered on 08:15; Start 09/23/17 at 08:15; Stop 09/23/17 at 09:14; Status DC Famotidine (Pepcid) 20 mg QHS PO Last administered on 09/26/17 21:05; Start 09/23/17 at 21:00 Levofloxacin (Levaquin) 500 mg DAILY06 PO Last administered on 09/27/17 05:01 ; Start 09/23/17 at 17:00 Lactobacillus Rhamnosus (Culturelle) 1 cap BID PO Last administered on 08:32; Start 09/23/17 at 21:00 Citalopram Hydrobromide (CeleXA) 20 mg DAILY PO Last administered on 08:33; Start 09/25/17 at 12:00 Active Scripts Active Reported Cymbalta (Duloxetine Hcl) 30 Mg Capsule.dr 1 Cap PO DAILY [bladder spasms ] Prednisone 1 Mg Tablet 1 Mg PO DAILY Loratadine 10 Mg Tablet 1 Tab PO DAILY [levaquin] 750 Mg IV DAILY Tecfidera (Dimethyl Fumarate) 240 Mg Capsule.dr 240 Mg PO BID Baclofen 20 Mg Tablet 1 Tab PO TID Xanax (Alprazolam) 0.5 Mg Tablet 1 Tab PO BID Vitals/I & O Vital Sign - Last 24 Hours 09/26/17 09/26/17 09/26/17 09/26/17 13:25 15:00 16:11 19:00 Temp 97.9 97.9 97.9 97.9 Pulse 98 97 Resp 18 18 B/P (MAP) 101/61 (74) 92/56 (68) Pulse Ox 97 98 O2 Delivery Room Air Room Air Room Air Room Air 09/26/17 09/26/17 09/26/17 09/26/17 20:04 20:48 20:49 21:06 Resp 20 Pulse Ox 97 O2 Delivery Room Air Room Air Room Air Room Air 09/26/17 09/27/17 09/27/17 09/27/17 23:00 03:00 05:01 06:01 Temp 98.1 98.1 98.1 98.1 Pulse 104 70 Resp 18 18 20 20 B/P (MAP) 88/51 (63) 105/63 (77) Pulse Ox 90 97 97 97 O2 Delivery Room Air Room Air Room Air Room Air 09/27/17 09/27/17 09/27/17 09/27/17 07:00 07:24 07:25 08:15 Temp 97.5 97.5 Pulse 71 Resp 18 B/P (MAP) 110/77 (88) Pulse Ox 96 97 97 O2 Delivery Room Air Room Air Room Air Room Air 09/27/17 09/27/17 11:00 11:15 Temp 98.0 98.0 Pulse 84 Resp 18 B/P (MAP) 90/55 (67) Pulse Ox 97 O2 Delivery Room Air Room Air Intake and Output 09/26/17 09/26/17 09/27/17 15:00 23:00 07:00 Intake Total 120 ml Output Total 380 ml 560 ml Balance -380 ml -440 ml Nutrition Consultation Dietary Evaluation: Recommendations by RD: Increase Calorie Intake, Protein supplementation Comments: boost plus tid boost pudding bid continue mvi and vit c per wound protocal Expected Outcomes/Goals: to meet > 75% est nutr needs Malnutrition Findings: Body Fat Depletion (Non Severe: Mild Depletion Weight Status: Underweight JESSIKA QUINTANA III DO Sep 27, 2017 13:37
[2017-09-27] MEDS: traMADol 50 MG TABLET PO PRN ×2 (14:48→21:39)
[2017-09-27 15:00] VITALS: BP 102/68
[2017-09-27] MEDS: ENOXAPARIN 40 MG/0.4 ML SYRINGE. SQ SCH (16:31)
--- NOTE | 2017-09-27 17:40 | PDOC ---
PULMONARY PROGRESS NOTES Subjective no soa Vitals Vital Signs Date Time Temp Pulse Resp B/P (MAP) Pulse Ox O2 Delivery O2 Flow Rate FiO2 09/27/17 16:00 Room Air 09/27/17 11:00 98.0 84 18 90/55 (67) 97 98.0 General: Alert, No acute distress Lungs: Clear Cardiovascular: S1 Abdomen: Soft Neuro Exam: Alert Extremities: No Edema Skin: Warm Labs Laboratory Tests Test 09/26/17 06:38 Nasal Screen MRSA (PCR) Negative (Negative) Medications Active Scripts Medications Dose Route/Sig Max Daily Dose Days Date Category [bladder spasms ] 09/22/17 Reported Prednisone 1 Mg Tablet 1 Mg PO DAILY 04/27/17 Reported Loratadine 10 Mg Tablet 1 Tab PO DAILY 04/27/17 Reported [levaquin] 750 Mg IV DAILY 04/27/17 Reported Tecfidera (Dimethyl Fumarate) 240 Mg Capsule.dr 240 Mg PO BID 04/27/17 Reported Baclofen 20 Mg Tablet 1 Tab PO TID 04/27/17 Reported Xanax (Alprazolam) 0.5 Mg Tablet 1 Tab PO BID 04/27/17 Reported Impression . 1. Abnormal CT chest with tiny mucus secretions seen in the right mainstem bronchus. This does not need any invasive procedure such as bronchoscopy and at this point, aggressive pulmonary toilet would be reasonable. 2. Longstanding history of multiple sclerosis. 3. Tiny 2 mm subpleural noncalcified nodule which does not need any followup. She is a nonsmoker. 4. No definite pneumonia seen on the CT chest. Plan . OK TO D/C SOON 1. Incentive spirometry. 2. DuoNeb. 3. off oxygen. 4. dc plans per PCP/ Awaiting placement PARVEZ HERNANDEZ MD Sep 27, 2017 17:40
[2017-09-27 19:00] VITALS: BP 100/59
[2017-09-27] MEDS: FAMOTIDINE 20 MG TABLET. PO SCH (21:40)
[2017-09-27 23:00] VITALS: BP 97/55
[2017-09-28 03:00] VITALS: BP 98/64
[2017-09-28 07:31] VITALS: BP 95/61
[2017-09-28] MEDS: BUDESONIDE 0.5 MG/2 ML NEBU. NEB SCH ×2 (07:39→20:10)
[2017-09-28] MEDS: IPRATRPIUM/ALBUTEROL 0.5/2.5MG 3 ML NEBU. NEB SCH ×4 (07:39→20:10)
[2017-09-28] MEDS: LACTOBACILLUS RHAMNOSUS GG 1 CAPSULE. PO SCH ×2 (08:15→21:28)
[2017-09-28] MEDS: ASCORBIC ACID 500 MG TABLET PO SCH (08:16)
[2017-09-28] MEDS: ALPRAZolam 0.5 MG TABLET PO SCH ×2 (08:16→21:27)
[2017-09-28] MEDS: ZINC SULFATE 220 MG CAPSULE. PO SCH (08:16)
[2017-09-28] MEDS: predniSONE 20 MG TABLET PO SCH (08:16)
[2017-09-28] MEDS: MULTIVITAMIN with MINERAL TABLET. PO SCH (08:16)
[2017-09-28] MEDS: CETIRIZINE HCL 10 MG TABLET. PO SCH (08:17)
[2017-09-28] MEDS: BACLOFEN 10 MG TABLET. PO SCH ×3 (08:17→21:28)
[2017-09-28] MEDS: CITALOPRAM 20 MG TABLET. PO SCH (09:42)
[2017-09-28] MEDS: CHOLECALCIFEROL (VITAMIN D3) 1,000 UNIT TABLET PO SCH (09:42)
[2017-09-28 10:52] VITALS: BP 86/52
--- NOTE | 2017-09-28 12:53 | PDOC ---
PROGRESS NOTES Chief Complaint Chief Complaint acute dyspnea, small mucus plug COPD UTI chronic martini due to incontinence and sacral ulcer MS, marked weakness, bedbound sacral ulcer tobaccoism back pain mild malnutrition chronic low BP weakness and debility, needs rehab placement History of Present Illness History of Present Illness Pt reports feeling well and breathing better. Denies hunger, weakness. sob bed bound with MS Probable dc soon to SNU Vitals Vitals Vital Signs Date Time Temp Pulse Resp B/P (MAP) Pulse Ox O2 Delivery O2 Flow Rate FiO2 09/28/17 11:16 Room Air 09/28/17 10:52 97.9 93 16 86/52 (63) 100 97.9 Physical Exam General: Alert, Oriented X3, Cooperative, No acute distress Heart: Regular rate, Normal S1, No murmurs Lungs: Clear Abdomen: Normal bowel sounds Extremities: No clubbing, No edema Skin: No rashes, No breakdown, No significant lesion Review of Systems Review of Systems General: No hunger, fatigue, fever, chills CV: No chest pain, palpitations Assessment and Plan Assessmemt and Plan Assessment: Acute dyspnea Small mucus plug rt mainstem bronchus COPD UTI Chronic martini due to incontinence MS Sacral ulcer Tobaccoism Back pain Mild malnutrition Chronic low BP Plan: Continue Nebulizer treatment Continue Antibiotics Continue Home meds PT/OT Recheck Labs Possible DC [place] agreeable with Pulmonology Problems: Comment Review of Relevant I have reviewed the following items lupe (where applicable) has been applied. Labs Microbiology 09/22/17 - Final, Complete 09/22/17 - Final, Complete 09/22/17 - Final, Complete 09/22/17 Gram Stain Evaluation - Final, Complete 09/22/17 Sputum Culture - Final, Complete 09/22/17 Sputum Result 1 - Final, Complete 09/22/17 Urine Culture - Final, Complete 09/22/17 Urine Culture Result 1 (SULTANA) - Final, Complete Medications Current Medications Alprazolam (Xanax) 0.5 mg BID PO Last administered on 09/28/17 08:16; Start 09/22/17 at 21:00 Prednisone (Prednisone) 1 mg DAILY PO ; Start 09/23/17 at 09:00; Stop at 09:00; Status DC Baclofen (Lioresal) 20 mg TID PO Last administered on 09/28/17 08:17; Start 09/22/17 at 15:00 Non-Formulary Medication 240 mg BID PO ; Start 09/22/17 at 21:00; Stop at 22:34; Status DC Cetirizine HCl (ZyrTEC) 10 mg DAILY PO Last administered on 09/28/17 08:17; Start 09/22/17 at 15:00 Levofloxacin/ Dextrose (LEVAQUIN 750mg PREMIX) 750 mg Q24H IV Last administered on 09/22/17 18:00; Start 09/22/17 at 15:00; Stop 09/23/17 at 15 :33; Status DC Albuterol/ Ipratropium (Duoneb) 3 ml RTQID NEB Last administered on 09/28/17 11:15; Start 09/22/17 at 16:00 Budesonide (Pulmicort) 0.5 mg RTBID NEB Last administered on 09/28/17 07:39; Start 09/22/17 at 20:00 Prednisone (Prednisone) 40 mg DAILY PO ; Start 09/22/17 at 15:00; Stop at 15:00; Status DC Prednisone (Prednisone) 40 mg DAILY PO Last administered on 09/28/17 08:16; Start 09/23/17 at 09:00 Nicotine (Nicoderm Cq 14mg) 1 patch PRN DAILY PRN TD SMOKING CESSATION; Start 09/22/17 at 15:00 Tramadol HCl (Ultram) 50 mg PRN Q6HRS PRN PO MILD PAIN Last administered on 21:39; Start 09/22/17 at 15:00 Albuterol Sulfate (Ventolin Neb Soln) 2.5 mg PRN Q4HRS PRN NEB SHORTNESS OF BREATH; Start 09/22/17 at 15:00 Albuterol/ Ipratropium (Duoneb) 3 ml RTQID NEB ; Start 09/22/17 at 16:00; Stop 09/23/17 at 09:01; Status DC Enoxaparin Sodium (Lovenox Per Pharmacy Prophylaxis Dosing) 1 each PRN DAILY PRN MC SEE COMMENTS; Start 09/22/17 at 15:00 Enoxaparin Sodium (Lovenox 40mg Syringe) 40 mg Q24H SQ Last administered on 16:31; Start 09/22/17 at 16:00 Oxycodone/ Acetaminophen (Percocet 5/325) 1 tab PRN Q6HRS PRN PO MODERATE- SEVERE PAIN Last administered on 09/27/17 18:39; Start 09/22/17 at 16:00 Zolpidem Tartrate (Ambien) 5 mg PRN QHS PRN PO INSOMNIA; Start 09/22/17 at 16: 00 Polyethylene Glycol (miraLAX PACKET) 17 gm PRN DAILY PRN PO CONSTIPATION; Start 09/22/17 at 16:00 Ascorbic Acid (Vitamin C) 500 mg DAILY PO Last administered on 09/28/17 08:16 ; Start 09/23/17 at 09:00 Zinc Sulfate (Orazinc) 220 mg DAILY PO Last administered on 09/28/17 08:16; Start 09/23/17 at 09:00 Multivitamins (Thera M Plus) 1 tab DAILY PO Last administered on 09/28/17 08: 16; Start 09/23/17 at 09:00 Vitamin D (Vitamin D3) 1,000 unit DAILY PO Last administered on 09/28/17 09: 42; Start 09/23/17 at 09:00 Influenza Virus Vaccine Quadrival (Fluarix Quad 3027-7044 Syringe) 0.5 ml ONCE ONCE VAX IM Last administered on 09/22/17 23:10; Start 09/22/17 at 19:15; Stop 09/22/17 at 19:16; Status DC Sodium Chloride 500 ml @ 500 mls/hr 1X ONCE IV Last administered on 08:15; Start 09/23/17 at 08:15; Stop 09/23/17 at 09:14; Status DC Famotidine (Pepcid) 20 mg QHS PO Last administered on 09/27/17 21:40; Start 09/23/17 at 21:00 Levofloxacin (Levaquin) 500 mg DAILY06 PO Last administered on 09/28/17 08:15 ; Start 09/23/17 at 17:00 Lactobacillus Rhamnosus (Culturelle) 1 cap BID PO Last administered on 08:15; Start 09/23/17 at 21:00 Citalopram Hydrobromide (CeleXA) 20 mg DAILY PO Last administered on t 09:42; Start 09/25/17 at 12:00 Active Scripts Active Reported Cymbalta (Duloxetine Hcl) 30 Mg Capsule. 1 Cap PO DAILY [bladder spasms ] Prednisone 1 Mg Tablet 1 Mg PO DAILY Loratadine 10 Mg Tablet 1 Tab PO DAILY [levaquin] 750 Mg IV DAILY Tecfidera (Dimethyl Fumarate) 240 Mg Capsule. 240 Mg PO BID Baclofen 20 Mg Tablet 1 Tab PO TID Xanax (Alprazolam) 0.5 Mg Tablet 1 Tab PO BID Vitals/I & O Vital Sign - Last 24 Hours 09/27/17 09/27/17 09/27/17 09/27/17 14:48 15:00 15:17 18:39 Temp 98.3 98.3 Pulse 85 Resp 18 B/P (MAP) 102/68 (79) Pulse Ox 98 O2 Delivery Room Air Room Air Room Air Room Air 09/27/17 09/27/17 09/27/17 09/27/17 19:00 19:39 20:00 20:15 Temp 98.1 98.1 Pulse 93 Resp 18 B/P (MAP) 100/59 (73) Pulse Ox 95 96 O2 Delivery Room Air Room Air Room Air Room Air 09/27/17 09/27/17 09/28/17 09/28/17 22:39 23:00 03:00 07:30 Temp 98.1 97.7 98.1 97.7 Pulse 81 74 Resp 18 18 B/P (MAP) 97/55 (69) 98/64 (75) Pulse Ox 96 97 96 O2 Delivery Room Air Room Air Room Air Room Air 09/28/17 09/28/17 09/28/17 07:31 10:52 11:16 Temp 98.3 97.9 98.3 97.9 Pulse 66 93 Resp 16 16 B/P (MAP) 95/61 (72) 86/52 (63) Pulse Ox 94 100 O2 Delivery Room Air Room Air Room Air Intake and Output 09/27/17 09/27/17 09/28/17 14:59 22:59 06:59 Intake Total 500 ml Output Total 250 ml 1000 ml Balance -250 ml -500 ml Nutrition Consultation Dietary Evaluation: Recommendations by RD: Increase Calorie Intake, Protein supplementation Comments: boost plus tid boost pudding bid continue mvi and vit c per wound protocal Expected Outcomes/Goals: to meet > 75% est nutr needs Malnutrition Findings: Body Fat Depletion (Non Severe: Mild Depletion Weight Status: Underweight JESSIKA QUINTANA III DO Sep 28, 2017 12:53
[2017-09-28 14:52] VITALS: BP 97/63
[2017-09-28] MEDS: ENOXAPARIN 40 MG/0.4 ML SYRINGE. SQ SCH (15:02)
[2017-09-28 19:00] VITALS: BP 83/54
[2017-09-28 20:46] LABS: BASO % 0 % (0-3); EOS % 0 % (0-3); HEMATOCRIT 39.2 % (36.0-47.0); HEMOGLOBIN 12.7 g/dL (12.0-15.5); LYMPH # 1.1 x10^3/uL (1.0-4.8); LYMPH % 9 % (24-48); MEAN CORPUSCULAR HEMOGLOBIN 26 pg (25-35); MEAN CORPUSCULAR HGB CONC 32 g/dL (31-37); MEAN CORPUSCULAR VOLUME 79 fL (79-100); MONO % 5 % (0-9); NEUT % 86 % (31-73); PLATELET COUNT 354 x10^3/uL (140-400); RED BLOOD COUNT 4.96 x10^6/uL (3.50-5.40); RED CELL DISTRIBUTION WIDTH 18.1 % (11.5-14.5); WHITE BLOOD COUNT 12.3 x10^3/uL (4.0-11.0)
[2017-09-28 21:03] LABS: CALCIUM 8.9 mg/dL (8.5-10.1); CREATININE 0.6 mg/dL (0.6-1.0); GFR 108.6; POTASSIUM 4.4 mmol/L (3.5-5.1)
[2017-09-28 21:04] LABS: ANISOCYTOSIS SLIGHT; PLT ESTIMATE ADEQUATE (ADEQUATE)
[2017-09-28] MEDS: FAMOTIDINE 20 MG TABLET. PO SCH (21:28)
[2017-09-28] MEDS: oxyCODONE/APAP 5/325 1 TAB TABLET PO PRN (21:31)
[2017-09-28 23:00] VITALS: BP 81/53
[2017-09-29 03:00] VITALS: BP 97/62
[2017-09-29 07:00] VITALS: BP 102/69
[2017-09-29] MEDS: IPRATRPIUM/ALBUTEROL 0.5/2.5MG 3 ML NEBU. NEB SCH ×2 (07:07→11:08)
[2017-09-29] MEDS: BUDESONIDE 0.5 MG/2 ML NEBU. NEB SCH (07:07)
[2017-09-29] MEDS: CETIRIZINE HCL 10 MG TABLET. PO SCH (08:28)
[2017-09-29] MEDS: CITALOPRAM 20 MG TABLET. PO SCH (08:28)
[2017-09-29] MEDS: ZINC SULFATE 220 MG CAPSULE. PO SCH (08:28)
[2017-09-29] MEDS: ASCORBIC ACID 500 MG TABLET PO SCH (08:28)
[2017-09-29] MEDS: BACLOFEN 10 MG TABLET. PO SCH ×2 (08:28→13:41)
[2017-09-29] MEDS: ALPRAZolam 0.5 MG TABLET PO SCH (08:28)
[2017-09-29] MEDS: predniSONE 20 MG TABLET PO SCH (08:28)
[2017-09-29] MEDS: LACTOBACILLUS RHAMNOSUS GG 1 CAPSULE. PO SCH (08:28)
[2017-09-29] MEDS: CHOLECALCIFEROL (VITAMIN D3) 1,000 UNIT TABLET PO SCH (08:28)
[2017-09-29] MEDS: MULTIVITAMIN with MINERAL TABLET. PO SCH (08:28)
[2017-09-29 11:00] VITALS: BP 89/55
[2017-09-29] MEDS: oxyCODONE/APAP 5/325 1 TAB TABLET PO PRN (13:45)
--- NOTE | 2017-09-29 15:17 | PDOC ---
PROGRESS NOTES Chief Complaint Chief Complaint acute dyspnea, small mucus plug COPD UTI chronic martini due to incontinence and sacral ulcer MS, marked weakness, bedbound sacral ulcer tobaccoism back pain mild malnutrition chronic low BP weakness and debility, needs rehab placement History of Present Illness History of Present Illness Pt reports feeling well and breathing better. Denies hunger, weakness. sob bed bound with MS Pt awaiting probable DC today Paperwork for placement at [facility] Received today Vitals Vitals Vital Signs Date Time Temp Pulse Resp B/P (MAP) Pulse Ox O2 Delivery O2 Flow Rate FiO2 09/29/17 14:45 Room Air 09/29/17 11:09 96 09/29/17 11:00 98.0 89 16 89/55 (66) 98.0 09/28/17 08:10 2.0 Physical Exam General: Alert, Oriented X3, Cooperative, No acute distress Heart: Regular rate, Normal S1, No murmurs Lungs: Clear Abdomen: Normal bowel sounds Extremities: No clubbing, No edema Skin: No rashes, No breakdown, No significant lesion Labs LABS Laboratory Tests Test 09/28/17 20:30 White Blood Count 12.3 x10^3/uL (4.0-11.0) Red Blood Count 4.96 x10^6/uL (3.50-5.40) Hemoglobin 12.7 g/dL (12.0-15.5) Hematocrit 39.2 % (36.0-47.0) Mean Corpuscular Volume 79 fL (79-100) Mean Corpuscular Hemoglobin 26 pg (25-35) Mean Corpuscular Hemoglobin Concent 32 g/dL (31-37) Red Cell Distribution Width 18.1 % (11.5-14.5) Platelet Count 354 x10^3/uL (140-400) Neutrophils (%) (Auto) 86 % (31-73) Lymphocytes (%) (Auto) 9 % (24-48) Monocytes (%) (Auto) 5 % (0-9) Eosinophils (%) (Auto) 0 % (0-3) Basophils (%) (Auto) 0 % (0-3) Neutrophils # (Auto) 10.6 x10^3uL (1.8-7.7) Lymphocytes # (Auto) 1.1 x10^3/uL (1.0-4.8) Monocytes # (Auto) 0.6 x10^3/uL (0.0-1.1) Eosinophils # (Auto) 0.0 x10^3/uL (0.0-0.7) Basophils # (Auto) 0.0 x10^3/uL (0.0-0.2) Segmented Neutrophils % 86 % (35-66) Band Neutrophils % 1 % (0-9) Lymphocytes % 9 % (24-48) Monocytes % 4 % (0-10) Platelet Estimate Adequate (ADEQUATE) Anisocytosis Slight Sodium Level 143 mmol/L (136-145) Potassium Level 4.4 mmol/L (3.5-5.1) Chloride Level 103 mmol/L (98-107) Carbon Dioxide Level 33 mmol/L (21-32) Anion Gap 7 (6-14) Blood Urea Nitrogen 22 mg/dL (7-20) Creatinine 0.6 mg/dL (0.6-1.0) Estimated GFR (Cockcroft-Gault) 108.6 Glucose Level 112 mg/dL (70-99) Calcium Level 8.9 mg/dL (8.5-10.1) Review of Systems Review of Systems General: Denies Hunger, Fatigue CV: Denies Chest Pain, Palpitations Assessment and Plan Assessmemt and Plan Assessment: Acute dyspnea, Small mucus plug COPD UTI Chronic martini due to incontinence MS, Sacral ulcer Tobaccoism Back pain Mild malnutrition Chronic low BP Weakness and debility, Needs rehab placement Plan: Probable DC today if stable Awaiting Further input from Pulmonology Continue PT/OT Continue Home Meds Continue Advanced Diet Problems: Comment Review of Relevant I have reviewed the following items lupe (where applicable) has been applied. Labs Laboratory Tests Test 09/28/17 20:30 White Blood Count 12.3 x10^3/uL (4.0-11.0) Red Blood Count 4.96 x10^6/uL (3.50-5.40) Hemoglobin 12.7 g/dL (12.0-15.5) Hematocrit 39.2 % (36.0-47.0) Mean Corpuscular Volume 79 fL (79-100) Mean Corpuscular Hemoglobin 26 pg (25-35) Mean Corpuscular Hemoglobin Concent 32 g/dL (31-37) Red Cell Distribution Width 18.1 % (11.5-14.5) Platelet Count 354 x10^3/uL (140-400) Neutrophils (%) (Auto) 86 % (31-73) Lymphocytes (%) (Auto) 9 % (24-48) Monocytes (%) (Auto) 5 % (0-9) Eosinophils (%) (Auto) 0 % (0-3) Basophils (%) (Auto) 0 % (0-3) Neutrophils # (Auto) 10.6 x10^3uL (1.8-7.7) Lymphocytes # (Auto) 1.1 x10^3/uL (1.0-4.8) Monocytes # (Auto) 0.6 x10^3/uL (0.0-1.1) Eosinophils # (Auto) 0.0 x10^3/uL (0.0-0.7) Basophils # (Auto) 0.0 x10^3/uL (0.0-0.2) Segmented Neutrophils % 86 % (35-66) Band Neutrophils % 1 % (0-9) Lymphocytes % 9 % (24-48) Monocytes % 4 % (0-10) Platelet Estimate Adequate (ADEQUATE) Anisocytosis Slight Sodium Level 143 mmol/L (136-145) Potassium Level 4.4 mmol/L (3.5-5.1) Chloride Level 103 mmol/L (98-107) Carbon Dioxide Level 33 mmol/L (21-32) Anion Gap 7 (6-14) Blood Urea Nitrogen 22 mg/dL (7-20) Creatinine 0.6 mg/dL (0.6-1.0) Estimated GFR (Cockcroft-Gault) 108.6 Glucose Level 112 mg/dL (70-99) Calcium Level 8.9 mg/dL (8.5-10.1) Laboratory Tests Test 09/28/17 20:30 White Blood Count 12.3 x10^3/uL (4.0-11.0) Red Blood Count 4.96 x10^6/uL (3.50-5.40) Hemoglobin 12.7 g/dL (12.0-15.5) Hematocrit 39.2 % (36.0-47.0) Mean Corpuscular Volume 79 fL (79-100) Mean Corpuscular Hemoglobin 26 pg (25-35) Mean Corpuscular Hemoglobin Concent 32 g/dL (31-37) Red Cell Distribution Width 18.1 % (11.5-14.5) Platelet Count 354 x10^3/uL (140-400) Neutrophils (%) (Auto) 86 % (31-73) Lymphocytes (%) (Auto) 9 % (24-48) Monocytes (%) (Auto) 5 % (0-9) Eosinophils (%) (Auto) 0 % (0-3) Basophils (%) (Auto) 0 % (0-3) Neutrophils # (Auto) 10.6 x10^3uL (1.8-7.7) Lymphocytes # (Auto) 1.1 x10^3/uL (1.0-4.8) Monocytes # (Auto) 0.6 x10^3/uL (0.0-1.1) Eosinophils # (Auto) 0.0 x10^3/uL (0.0-0.7) Basophils # (Auto) 0.0 x10^3/uL (0.0-0.2) Segmented Neutrophils % 86 % (35-66) Band Neutrophils % 1 % (0-9) Lymphocytes % 9 % (24-48) Monocytes % 4 % (0-10) Platelet Estimate Adequate (ADEQUATE) Anisocytosis Slight Sodium Level 143 mmol/L (136-145) Potassium Level 4.4 mmol/L (3.5-5.1) Chloride Level 103 mmol/L (98-107) Carbon Dioxide Level 33 mmol/L (21-32) Anion Gap 7 (6-14) Blood Urea Nitrogen 22 mg/dL (7-20) Creatinine 0.6 mg/dL (0.6-1.0) Estimated GFR (Cockcroft-Gault) 108.6 Glucose Level 112 mg/dL (70-99) Calcium Level 8.9 mg/dL (8.5-10.1) Microbiology 09/22/17 - Final, Complete 09/22/17 - Final, Complete 09/22/17 - Final, Complete 09/22/17 Gram Stain Evaluation - Final, Complete 09/22/17 Sputum Culture - Final, Complete 09/22/17 Sputum Result 1 - Final, Complete 09/22/17 Urine Culture - Final, Complete 09/22/17 Urine Culture Result 1 (SULTANA) - Final, Complete Medications Current Medications Alprazolam (Xanax) 0.5 mg BID PO Last administered on 09/28/17 21:27; Start 09/22/17 at 21:00; Stop 09/29/17 at 14:59; Status DC Prednisone (Prednisone) 1 mg DAILY PO ; Start 09/23/17 at 09:00; Stop at 09:00; Status DC Baclofen (Lioresal) 20 mg TID PO Last administered on 09/29/17 13:41; Start 09/22/17 at 15:00; Stop 09/29/17 at 14:59; Status DC Non-Formulary Medication 240 mg BID PO ; Start 09/22/17 at 21:00; Stop at 22:34; Status DC Cetirizine HCl (ZyrTEC) 10 mg DAILY PO Last administered on 09/29/17 08:28; Start 09/22/17 at 15:00; Stop 09/29/17 at 14:59; Status DC Levofloxacin/ Dextrose (LEVAQUIN 750mg PREMIX) 750 mg Q24H IV Last administered on 09/22/17 18:00; Start 09/22/17 at 15:00; Stop 09/23/17 at 15 :33; Status DC Albuterol/ Ipratropium (Duoneb) 3 ml RTQID NEB Last administered on 09/29/17 11:08; Start 09/22/17 at 16:00; Stop 09/29/17 at 14:59; Status DC Budesonide (Pulmicort) 0.5 mg RTBID NEB Last administered on 09/29/17 07:07; Start 09/22/17 at 20:00; Stop 09/29/17 at 14:59; Status DC Prednisone (Prednisone) 40 mg DAILY PO ; Start 09/22/17 at 15:00; Stop at 15:00; Status DC Prednisone (Prednisone) 40 mg DAILY PO Last administered on 09/29/17 08:28; Start 09/23/17 at 09:00; Stop 09/29/17 at 14:59; Status DC Nicotine (Nicoderm Cq 14mg) 1 patch PRN DAILY PRN TD SMOKING CESSATION; Start 09/22/17 at 15:00; Stop 09/29/17 at 14:59; Status DC Tramadol HCl (Ultram) 50 mg PRN Q6HRS PRN PO MILD PAIN Last administered on 21:39; Start 09/22/17 at 15:00; Stop 09/29/17 at 14:59; Status DC Albuterol Sulfate (Ventolin Neb Soln) 2.5 mg PRN Q4HRS PRN NEB SHORTNESS OF BREATH; Start 09/22/17 at 15:00; Stop 09/29/17 at 14:59; Status DC Albuterol/ Ipratropium (Duoneb) 3 ml RTQID NEB ; Start 09/22/17 at 16:00; Stop 09/23/17 at 09:01; Status DC Enoxaparin Sodium (Lovenox Per Pharmacy Prophylaxis Dosing) 1 each PRN DAILY PRN MC SEE COMMENTS; Start 09/22/17 at 15:00; Stop 09/29/17 at 14:59; Status DC Enoxaparin Sodium (Lovenox 40mg Syringe) 40 mg Q24H SQ Last administered on 15:02; Start 09/22/17 at 16:00; Stop 09/29/17 at 14:59; Status DC Oxycodone/ Acetaminophen (Percocet 5/325) 1 tab PRN Q6HRS PRN PO MODERATE- SEVERE PAIN Last administered on 09/29/17 13:45; Start 09/22/17 at 16:00; Stop 09/29/17 at 14:59; Status DC Zolpidem Tartrate (Ambien) 5 mg PRN QHS PRN PO INSOMNIA; Start 09/22/17 at 16: 00; Stop 09/29/17 at 14:59; Status DC Polyethylene Glycol (miraLAX PACKET) 17 gm PRN DAILY PRN PO CONSTIPATION; Start 09/22/17 at 16:00; Stop 09/29/17 at 14:59; Status DC Ascorbic Acid (Vitamin C) 500 mg DAILY PO Last administered on 09/29/17 08:28 ; Start 09/23/17 at 09:00; Stop 09/29/17 at 14:59; Status DC Zinc Sulfate (Orazinc) 220 mg DAILY PO Last administered on 09/29/17 08:28; Start 09/23/17 at 09:00; Stop 09/29/17 at 14:59; Status DC Multivitamins (Thera M Plus) 1 tab DAILY PO Last administered on 09/29/17 08: 28; Start 09/23/17 at 09:00; Stop 09/29/17 at 14:59; Status DC Vitamin D (Vitamin D3) 1,000 unit DAILY PO Last administered on 09/29/17 08: 28; Start 09/23/17 at 09:00; Stop 09/29/17 at 14:59; Status DC Influenza Virus Vaccine Quadrival (Fluarix Quad 5043-2400 Syringe) 0.5 ml ONCE ONCE VAX IM Last administered on 09/22/17 23:10; Start 09/22/17 at 19:15; Stop 09/22/17 at 19:16; Status DC Sodium Chloride 500 ml @ 500 mls/hr 1X ONCE IV Last administered on 08:15; Start 09/23/17 at 08:15; Stop 09/23/17 at 09:14; Status DC Famotidine (Pepcid) 20 mg QHS PO Last administered on 09/28/17 21:28; Start 09/23/17 at 21:00; Stop 09/29/17 at 14:59; Status DC Levofloxacin (Levaquin) 500 mg DAILY06 PO Last administered on 09/29/17 06:18 ; Start 09/23/17 at 17:00; Stop 09/29/17 at 14:59; Status DC Lactobacillus Rhamnosus (Culturelle) 1 cap BID PO Last administered on 08:28; Start 09/23/17 at 21:00; Stop 09/29/17 at 14:59; Status DC Citalopram Hydrobromide (CeleXA) 20 mg DAILY PO Last administered on 08:28; Start 09/25/17 at 12:00; Stop 09/29/17 at 14:59; Status DC Active Scripts Active Reported Cymbalta (Duloxetine Hcl) 30 Mg Capsule. 1 Cap PO DAILY [bladder spasms ] Prednisone 1 Mg Tablet 1 Mg PO DAILY Loratadine 10 Mg Tablet 1 Tab PO DAILY [levaquin] 750 Mg IV DAILY Tecfidera (Dimethyl Fumarate) 240 Mg Capsule.dr 240 Mg PO BID Baclofen 20 Mg Tablet 1 Tab PO TID Xanax (Alprazolam) 0.5 Mg Tablet 1 Tab PO BID Vitals/I & O Vital Sign - Last 24 Hours 09/28/17 09/28/17 09/28/17 09/28/17 15:51 19:00 20:00 20:09 Temp 98.7 98.7 Pulse 98 Resp 18 B/P (MAP) 83/54 (64) Pulse Ox 98 97 O2 Delivery Room Air Room Air Room Air Room Air 09/28/17 09/28/17 09/29/17 09/29/17 21:31 23:00 03:00 07:00 Temp 98.3 97.9 97.5 98.3 97.9 97.5 Pulse 91 74 93 Resp 18 18 16 B/P (MAP) 81/53 (62) 97/62 (74) 102/69 (80) Pulse Ox 96 92 95 O2 Delivery Room Air Room Air Room Air Room Air 09/29/17 09/29/17 09/29/17 09/29/17 07:08 08:00 11:00 11:09 Temp 98.0 98.0 Pulse 89 Resp 16 B/P (MAP) 89/55 (66) Pulse Ox 97 95 96 O2 Delivery Room Air Room Air Room Air Room Air 09/29/17 09/29/17 13:45 14:45 O2 Delivery Room Air Room Air Intake and Output 09/28/17 09/28/17 09/29/17 15:00 23:00 07:00 Intake Total 660 ml Output Total 1200 ml 725 ml Balance -540 ml -725 ml Nutrition Consultation Dietary Evaluation: Recommendations by RD: Increase Calorie Intake, Protein supplementation Comments: boost plus tid boost pudding bid continue mvi and vit c per wound protocal Expected Outcomes/Goals: to meet > 75% est nutr needs Malnutrition Findings: Body Fat Depletion (Non Severe: Mild Depletion Weight Status: Underweight CASTLE,NIAL K III DO Sep 29, 2017 15:17
--- NOTE | 2017-10-08 10:35 | DS ---
DATE OF DISCHARGE: 09/29/2017 ADMISSION DIAGNOSIS: Pneumonia. DISCHARGE DIAGNOSIS: Resolving pneumonia. CONSULTS: Pulmonary. PROCEDURES: None. HOSPITAL COURSE: The patient is a pleasant 42-year-old female who presented with pneumonia and mucus plugging. She was admitted. We consulted Pulmonary. We gave her IV antibiotics, breathing treatments and oxygen. She did well. We discharged to home. DISPOSITION: Home. ACTIVITY: As tolerated. DIET: Low sodium. MEDICATIONS: Please see the MRAD. TOTAL TIME: 34 minutes. JESSIKA QUINTANA DO DR: MERLYN/ronit JOB#: [id number] / [id number]
== END 2017-09-29 14:50 | DRG 205 ==
LOC: 4 NORTH 13:43
PROVIDERS: ADMIT Internal Medicine; ATTEND Internal Medicine
DX: T17.590A Other foreign object in bronchus causing asphyxiation, initial encounter (principal); R53.2 Functional quadriplegia; I95.89 Other hypotension; L89.152 Pressure ulcer of sacral region, stage 2; E44.1 Mild protein-calorie malnutrition; G35 Multiple sclerosis; N39.0 Urinary tract infection, site not specified; Z68.1 Body mass index [BMI] 19.9 or less, adult; F17.210 Nicotine dependence, cigarettes, uncomplicated; J44.9 Chronic obstructive pulmonary disease, unspecified; R32 Unspecified urinary incontinence; Z74.01 Bed confinement status
CPT/HCPCS: 36415; 36600; 80048; 80053; 82805; 82962; 85007; 85025; 87070; 87086; 87205; 87641; 90686; 94250; 94640; 94760; G0238; J1650; J1956; J7040; J7512; J7620; J7626; 97110; 97112; 97530; 97535

== ENCOUNTER 2018-12-29 18:06 | Inpatient (IN) | payer MEDICARE, OTHER ==
[~2018-12-29] VITALS: Ht 175.3 cm; Wt 71.2 kg
[~2018-12-29 18:06] MED LIST changes: +DULO30CA2 PO; +[UNRECOGNIZED DRUG - CODE] SQ; -[UNRECOGNIZED DRUG - CODE] SQ; +[UNRECOGNIZED DRUG - OTHER]
--- NOTE | 2018-12-29 18:18 | PHYS DOC ---
Past Medical History Past Medical History: Other Additional Past Medical Histor: MS,FACTOR 5,WOUND ON COCCYX Past Surgical History: Other Additional Past Surgical Histo: DEBRIDMENT ON COCCYX Smoking: Cigarettes Alcohol Use: None Drug Use: Marijuana Adult General Chief Complaint Chief Complaint: FEVER HPI HPI 43 y/o female who is bedbound due to MS presents via EMS from [facility] with report of fever and concern for sepsis. Patient reports hasn't felt well for the last few days. Fever started today. History of chronic sacral decubitus ulceration. Denies cough. Review of Systems Review of Systems Constitutional: Denies fever or chills [] Eyes: Denies change in visual acuity, redness, or eye pain [] HENT: Denies nasal congestion or sore throat [] Respiratory: Denies cough or shortness of breath [] Cardiovascular: Denies chest pain or palpitations GI: Denies nausea or vomiting; reports abdominal pain and diarrhea [] : Denies dysuria or hematuria [] Musculoskeletal: Denies back pain or joint pain [] Integument: Reports chronic decubitus ulceration Neurologic: Denies headache; reports generalized weakness Complete systems were reviewed and found to be within normal limits, except as documented in this note. Current Medications Current Medications Current Medications Medications (Trade) Dose Ordered Sig/Amber Start Time Stop Time Status Last Admin Dose Admin Fentanyl Citrate (Fentanyl 2ml Vial) 50 mcg 1X ONCE 12/29/18 19:15 12/29/18 19:26 DC 12/29/18 20:03 50 MCG Iohexol (Omnipaque 300 Mg/ml) 75 ml 1X ONCE 12/29/18 19:15 12/29/18 19:26 DC 12/29/18 19:15 75 ML Piperacillin Sod/ Tazobactam Sod 4.5 gm/Sodium Chloride 100 ml @ 200 mls/hr 1X ONCE 12/29/18 19:00 12/29/18 19:29 DC 12/29/18 19:07 200 MLS/HR Sodium Chloride 1,000 ml @ 1,000 mls/hr 1X ONCE 12/29/18 18:45 12/29/18 19:44 DC 12/29/18 19:04 1,000 MLS/HR Allergies Allergies Allergies Coded Allergies Type Severity Reaction Last Updated Verified No Known Medication Allergies Allergy Unknown 04/28/17 Yes Physical Exam Physical Exam Constitutional: Well developed, well nourished, frail, ill appearing HENT: Normocephalic, atraumatic, oropharynx tacky Eyes: PERRL, EOMI, conjunctiva normal, no discharge. [] Neck: Normal range of motion, no tenderness, supple, no meningeal signs Cardiovascular: Heart rate tachycardic, regular rhythm Lungs & Thorax: Bilateral breath sounds clear to auscultation [] Abdomen: Soft, diffuse tenderness and distention Skin: Warm, dry, chronic healing sacral decubitus ulceration Extremities: Significant contractures noted to BLE- chronic, no swelling Neurologic: Alert and oriented, no focal deficits noted which are not chronic per patient Psychologic: Affect normal, judgement normal Current Patient Data Vital Signs Lab Values Laboratory Tests Test 12/29/18 18:25 12/29/18 20:05 White Blood Count 20.3 x10^3/uL (4.0-11.0) H Red Blood Count 5.04 x10^6/uL (3.50-5.40) Hemoglobin 10.2 g/dL (12.0-15.5) L Hematocrit 33.0 % (36.0-47.0) L Mean Corpuscular Volume 66 fL (79-100) L Mean Corpuscular Hemoglobin 20 pg (25-35) L Mean Corpuscular Hemoglobin Concent 31 g/dL (31-37) Red Cell Distribution Width 23.9 % (11.5-14.5) H Platelet Count 425 x10^3/uL (140-400) H Neutrophils (%) (Auto) 80 % (31-73) H Lymphocytes (%) (Auto) 8 % (24-48) L Monocytes (%) (Auto) 10 % (0-9) H Eosinophils (%) (Auto) 2 % (0-3) Basophils (%) (Auto) 0 % (0-3) Neutrophils # (Auto) 16.3 x10^3uL (1.8-7.7) H Lymphocytes # (Auto) 1.7 x10^3/uL (1.0-4.8) Monocytes # (Auto) 2.0 x10^3/uL (0.0-1.1) H Eosinophils # (Auto) 0.3 x10^3/uL (0.0-0.7) Basophils # (Auto) 0.1 x10^3/uL (0.0-0.2) Segmented Neutrophils % 79 % (35-66) H Lymphocytes % 14 % (24-48) L Monocytes % 7 % (0-10) Platelet Estimate Increased (ADEQUATE) Giant Platelets Occ Polychromasia Slight Hypochromasia Marked Microcytosis Marked Prothrombin Time 18.5 SEC (11.7-14.0) H Prothrombin Time INR 1.6 (0.8-1.1) H PTT 40 SEC (24-38) H Sodium Level 137 mmol/L (136-145) Potassium Level 4.2 mmol/L (3.5-5.1) Chloride Level 99 mmol/L (98-107) Carbon Dioxide Level 26 mmol/L (21-32) Anion Gap 12 (6-14) Blood Urea Nitrogen 9 mg/dL (7-20) Creatinine 0.5 mg/dL (0.6-1.0) L Estimated GFR (Cockcroft-Gault) 133.4 BUN/Creatinine Ratio 18 (6-20) Glucose Level 98 mg/dL (70-99) Lactic Acid Level 1.0 mmol/L (0.4-2.0) Calcium Level 8.4 mg/dL (8.5-10.1) L Magnesium Level 1.6 mg/dL (1.8-2.4) L Total Bilirubin 0.4 mg/dL (0.2-1.0) Aspartate Amino Transferase (AST) 10 U/L (15-37) L Alanine Aminotransferase (ALT) 12 U/L (14-59) L Alkaline Phosphatase 68 U/L (46-116) Creatine Kinase 76 U/L (26-192) Creatine Kinase MB (Mass) 0.8 ng/mL (0.0-3.6) Creatine Kinase MB Relative Index 1.1 % (0-4) Troponin I Quantitative < 0.017 ng/mL (0.000-0.055) Total Protein 5.3 g/dL (6.4-8.2) L Albumin 2.2 g/dL (3.4-5.0) L Albumin/Globulin Ratio 0.7 (1.0-1.7) L Urine Collection Type Unknown Urine Color Yellow Urine Clarity Cloudy Urine pH 5.5 Urine Specific [place] >=1.030 Urine Protein Negative mg/dL (NEG-TRACE) Urine Glucose (UA) Negative mg/dL (NEG) Urine Ketones (Stick) Negative mg/dL (NEG) Urine Blood Trace (NEG) Urine Nitrite Positive (NEG) Urine Bilirubin Negative (NEG) Urine Urobilinogen Dipstick 0.2 mg/dL (0.2 mg/dL) Urine Leukocyte Esterase Large (NEG) Urine RBC 0 /HPF (0-2) Urine WBC >40 /HPF (0-4) Urine Squamous Epithelial Cells Mod /LPF Urine Bacteria Many /HPF (0-FEW) Urine Mucus Mod /LPF Laboratory Tests 12/29/18 18:25 Laboratory Tests 12/29/18 18:25 Microbiology 12/29/18 Urine Culture - Final, Complete 12/29/18 Urine Culture Result 1 (SULTANA) - Final, Complete 12/29/18 Antimicrobic Susceptibility - Final, Complete Microbiology 12/29/18 Urine Culture - Final, Complete 12/29/18 Urine Culture Result 1 (SULTANA) - Final, Complete 12/29/18 Antimicrobic Susceptibility - Final, Complete EKG EKG @19:25 sinus tachycardia with HR of 133 bpm QRS: 66 ms QT/QTc: 340/507 ms Radiology/Procedures Radiology/Procedures PROCEDURE: CT CHEST ABD PELVIS W/CONTRAST PQRS Compliance Statement: One or more of the following individualized dose reduction techniques were utilized for this examination: 1. Automated exposure control 2. Adjustment of the mA and/or kV according to patient size 3. Use of iterative reconstruction technique CT chest, abdomen and pelvis with contrast December 29, 2018 INDICATION: Fever, hypoxia and abdominal pain with diarrhea. History of MS. COMPARISON: CT angiography chest September 21, 2017 TECHNIQUE: Multiple axial CT images of the chest, abdomen and pelvis were obtained after the intravenous demonstration of 75 cc Omnipaque 300. Coronal and sagittal reformats are provided. FINDINGS: Patient is in a contracted position which limits evaluation. Thyroid gland is normal in appearance. There is endobronchial filling defect involving the right mainstem bronchus and right lower lobe bronchi with associated postobstructive airspace consolidation which may represent atelectasis versus pneumonia. Mild centrilobular pulmonary emphysema is identified. No suspicious solid noncalcified pulmonary nodules are identified. There are no significant pleural effusions. No pulmonary vascular congestion or pneumothorax. Heart size is within normal limits. Thoracic aorta is normal in course and caliber. Liver, spleen, bilateral adrenal glands and pancreas appear normal. There is mild prominence of the main pancreatic duct which may be secondary to parenchymal atrophy of the pancreas. Main pancreatic duct measures up to 4 mm. Calcified gallstones are identified within the gallbladder. The kidneys enhance symmetrically. There is no suspicious renal mass. There is no hydronephrosis. There are no suspected calculi within the kidneys, ureters or urinary bladder. Abdominal aorta is normal in course and caliber. No pathologically enlarged lymph nodes are identified in the abdomen and pelvis. There is no free fluid or free intraperitoneal air. There is circumferential wall thickening involving the left colon from the splenic flexure to the rectum. No definite adjacent plantar changes are present. Consideration may be given for underdistention versus colitis of infectious/inflammatory etiology. The appendix is not definitively visualized. No pericecal inflammatory changes are identified. Calcifications are identified within the urinary bladder. Shafer catheter is present. No pericystic inflammatory changes are identified. Uterus and adnexa are normal by CT. Left inguinal lymph node measures 9 mm by short axis and may be reactive. There is soft tissue thickening and subcutaneous soft tissues superficial to the distal sacrum and coccyx. No definite osseous erosions are identified. Correlate with skin ulceration or decubitus ulcer in this region. No suspicious osseous abnormality is identified. IMPRESSION: 1. There is circumferential wall thickening involving the left colon to the level of the rectum which may be seen in setting of colitis of infectious/inflammatory etiology. Findings are atypical for ischemic colitis. 2. Filling defects are identified within the right mainstem bronchus and right lower lobe bronchi which most favor mucous plugging. There is post obstructive airspace consolidation which may represent atelectasis versus infiltrate in the right lower lobe. 3. Cholelithiasis. 4. Shafer catheter with suspected calcifications or dense contrast within the urinary bladder. 5. Main pancreatic duct measures up to 4 mm. Findings may be secondary to parenchymal atrophy. Electronically signed by: Lizbeth Jerome MD (12/29/2018 8:23 PM) [facility] Course & Med Decision Making Course & Med Decision Making Pertinent Labs and Imaging studies reviewed. (See chart for details) Patient with pmh of MS presents with report of generalized weakness, diarrhea, and fever. Concern for sepsis. SIRS criteria met with fever and tachycardia. Patient does have chronic wound to sacrum which is potential source. Empiric antibiotics initiated. Labs obtained and posted to chat. Lactic acid WNL. UA with signs of infection.. CT abd/pelvis with possible colitis. Patient requiring admission for further evaluation and treatment. Discussed with Dr. Frankel (PCP) who is in agreement with admit. Discussed findings and plan with patient, who acknowledges understanding and agreement. Dragon Disclaimer Dragon Disclaimer This electronic medical record was generated, in whole or in part, using a voice recognition dictation system. Departure Departure Impression: Primary Impression: Sepsis Additional Impressions: Complicated UTI (urinary tract infection) Decubitus ulcers Diarrhea Disposition: HOME, SELF-CARE Condition: STABLE Referrals: VENTURA BRYAN MD (PCP) Scripts Vancomycin HCl (Vancomycin HCl) 125 Mg/2.5 Ml Syringe 125 MG PO QID for c diff for 14 Days, SYR Prov: YOLI FRANKEL MD 01/04/19 Linezolid (ZYVOX) 600 Mg Tablet 600 MG PO BID for uti for 5 Days, #10 TAB Prov: YOLI FRANKEL MD 01/04/19 Cefdinir (CEFDINIR) 300 Mg Capsule 1 CAP PO BID for uti for 5 Days, #10 CAP Prov: YOLI FRANKEL MD 01/04/19 Critical Care Time Critical care time was 30 minutes which includes time at bedside, spent in discussion of patient's care with specialists and/or family members, with interpretation of laboratory and/or radiological studies and is exclusive of procedures. Problem Qualifiers Primary Impression: Sepsis Sepsis type: sepsis due to unspecified organism Qualified Codes: A41.9 - Sepsis, unspecified organism Additional Impressions: Decubitus ulcers Pressure injury location: sacral region Pressure injury stage: stage 4 Qualified Codes: L89.154 - Pressure ulcer of sacral region, stage 4 Diarrhea Diarrhea type: unspecified type Qualified Codes: R19.7 - Diarrhea, unspecified NORBERTO BEAVERS DO Dec 29, 2018 18:18
[2018-12-29] MEDS ORDERED: IV NORMAL SALINE 1000ML BAG 1,000 ML IV ONE ×2 (18:45)
[2018-12-29 18:57] LABS: BASO # 0.1 x10^3/uL (0.0-0.2); BASO % 0 % (0-3); EOS # 0.3 x10^3/uL (0.0-0.7); EOS % 2 % (0-3); HEMOGLOBIN 10.2 g/dL (12.0-15.5); LYMPH # 1.7 x10^3/uL (1.0-4.8); LYMPH % 8 % (24-48); MEAN CORPUSCULAR HEMOGLOBIN 20 pg (25-35); MEAN CORPUSCULAR HGB CONC 31 g/dL (31-37); MEAN CORPUSCULAR VOLUME 66 fL (79-100); MONO % 10 % (0-9); NEUT # 16.3 x10^3uL (1.8-7.7); NEUT % 80 % (31-73); PLATELET COUNT 425 x10^3/uL (140-400); RED BLOOD COUNT 5.04 x10^6/uL (3.50-5.40); RED CELL DISTRIBUTION WIDTH 23.9 % (11.5-14.5); WHITE BLOOD COUNT 20.3 x10^3/uL (4.0-11.0)
[2018-12-29] MEDS ORDERED: PIPERACILLIN/TAZOBACTAM 4.5 GM in IV NORMAL SALINE 100ML 100 ML IV ONE (19:00)
[2018-12-29 19:07] LABS: PROTHROMBIN TIME PATIENT 18.5 SEC (11.7-14.0)
[2018-12-29] MEDS ORDERED: fentaNYL PF VIAL 100 MCG/2 ML VIAL IV ONE (19:15)
[2018-12-29] MEDS ORDERED: IOHEXOL 300 MG/ML 100ML VIAL. IV ONE (19:15)
[2018-12-29 19:16] LABS: CALCIUM 8.4 mg/dL (8.5-10.1); CREATININE 0.5 mg/dL (0.6-1.0); GFR 133.4; POTASSIUM 4.2 mmol/L (3.5-5.1)
[2018-12-29 19:29] LABS: ALBUMIN 2.2 g/dL (3.4-5.0); ALBUMIN/GLOBULIN RATIO 0.7 (1.0-1.7); MAGNESIUM 1.6 mg/dL (1.8-2.4); TOTAL BILIRUBIN 0.4 mg/dL (0.2-1.0); TOTAL PROTEIN 5.3 g/dL (6.4-8.2)
[2018-12-29 20:12] LABS: BILIRUBIN,URINE NEGATIVE (NEG); CLARITY,URINE CLOUDY; COLOR,URINE YELLOW; NITRITE,URINE POSITIVE (NEG); PH,URINE 5.5; PROTEIN,URINE NEGATIVE (NEG-TRACE); UROBILINOGEN,URINE 0.2 mg/dL (0.2 mg/dL)
[2018-12-29 20:13] LABS: % LYMPHS 14 % (24-48); % MONOS 7 % (0-10); % SEGS 79 % (35-66)
[2018-12-29 20:14] LABS: HYPOCHROMIA MARKED; PLT ESTIMATE INCREASED (ADEQUATE); POLYCHROMASIA SLIGHT
[2018-12-29 20:15] LABS: MICROCYTOSIS MARKED
[2018-12-29 20:16] LABS: BACTERIA,URINE MANY /HPF (0-FEW); SQUAMOUS EPITHELIAL CELL,UR MOD /LPF
[2018-12-29 20:17] LABS: RBC,URINE 0 /HPF (0-2); WBC,URINE >40 /HPF (0-4)
--- NOTE | 2018-12-29 20:26 | RAD ---
PQRS Compliance Statement: One or more of the following individualized dose reduction techniques were utilized for this examination: 1. Automated exposure control 2. Adjustment of the mA and/or kV according to patient size 3. Use of iterative reconstruction technique CT chest, abdomen and pelvis with contrast December 29, 2018 INDICATION: Fever, hypoxia and abdominal pain with diarrhea. History of MS. COMPARISON: CT angiography chest September 21, 2017 TECHNIQUE: Multiple axial CT images of the chest, abdomen and pelvis were obtained after the intravenous demonstration of 75 cc Omnipaque 300. Coronal and sagittal reformats are provided. FINDINGS: Patient is in a contracted position which limits evaluation. Thyroid gland is normal in appearance. There is endobronchial filling defect involving the right mainstem bronchus and right lower lobe bronchi with associated postobstructive airspace consolidation which may represent atelectasis versus pneumonia. Mild centrilobular pulmonary emphysema is identified. No suspicious solid noncalcified pulmonary nodules are identified. There are no significant pleural effusions. No pulmonary vascular congestion or pneumothorax. Heart size is within normal limits. Thoracic aorta is normal in course and caliber. Liver, spleen, bilateral adrenal glands and pancreas appear normal. There is mild prominence of the main pancreatic duct which may be secondary to parenchymal atrophy of the pancreas. Main pancreatic duct measures up to 4 mm. Calcified gallstones are identified within the gallbladder. The kidneys enhance symmetrically. There is no suspicious renal mass. There is no hydronephrosis. There are no suspected calculi within the kidneys, ureters or urinary bladder. Abdominal aorta is normal in course and caliber. No pathologically enlarged lymph nodes are identified in the abdomen and pelvis. There is no free fluid or free intraperitoneal air. There is circumferential wall thickening involving the left colon from the splenic flexure to the rectum. No definite adjacent plantar changes are present. Consideration may be given for underdistention versus colitis of infectious/inflammatory etiology. The appendix is not definitively visualized. No pericecal inflammatory changes are identified. Calcifications are identified within the urinary bladder. Shafer catheter is present. No pericystic inflammatory changes are identified. Uterus and adnexa are normal by CT. Left inguinal lymph node measures 9 mm by short axis and may be reactive. There is soft tissue thickening and subcutaneous soft tissues superficial to the distal sacrum and coccyx. No definite osseous erosions are identified. Correlate with skin ulceration or decubitus ulcer in this region. No suspicious osseous abnormality is identified. IMPRESSION: 1. There is circumferential wall thickening involving the left colon to the level of the rectum which may be seen in setting of colitis of infectious/inflammatory etiology. Findings are atypical for ischemic colitis. 2. Filling defects are identified within the right mainstem bronchus and right lower lobe bronchi which most favor mucous plugging. There is post obstructive airspace consolidation which may represent atelectasis versus infiltrate in the right lower lobe. 3. Cholelithiasis. 4. Shafer catheter with suspected calcifications or dense contrast within the urinary bladder. 5. Main pancreatic duct measures up to 4 mm. Findings may be secondary to parenchymal atrophy. Electronically signed by: Lizbeth Jerome MD (12/29/2018 8:23 PM) [facility]
[2018-12-29] MEDS ORDERED: VANCOMYCIN 1.5 GM in IV NORMAL SALINE 500ML BAG 500 ML IV ONE (21:00)
[2018-12-29] MEDS ORDERED: ACETAMINOPHEN 500 MG TABLET PO ONE (21:00)
[2018-12-29] MEDS ORDERED: ONDANSETRON PF 4 MG/2 ML VIAL. IV PRN (21:00)
[2018-12-29] MEDS ORDERED: VANCOMYCIN 1.25 GM in IV NORMAL SALINE 250ML 250 ML IV ONE (21:15)
[2018-12-29 23:15] VITALS: BP 72/63
[2018-12-29 23:30] VITALS: BP 81/63
[2018-12-29 23:45] VITALS: BP 87/59
[2018-12-30] VITALS (24 sets, daily range): BP systolic 68–90; BP diastolic 42–65
[2018-12-30] MEDS: VANCOMYCIN PER PHARMACY MC PRN ×2 (00:41→16:43)
--- NOTE | 2018-12-30 00:46 | NUR ---
Pharmacy Vancomycin Dosing Note S:Consulted to monitor and dose vancomycin started 12/29/18. O:LENNY EVERETT is a 43 year old F with Sepsis UTI DECUBITIS . Height: 5 feet, 7 inches Weight: 52.293006 kg [place] Body Weight: 61.60 Adjusted Body Weight: 57.80 Dosing Weight: Actual Other Antibiotics: ZOSYN 3.375GM IV Q6H LEVAQUIN 750MG IV Q24H LABS: Last BUN: 9 Last Creatinine: 0.5 Creatinine Clearance: >100 mL/min Last WBC: 20.3 Last Procalcitonin: Tmax (past 24 hours): Microbiology: I/O: Drug Levels: Last level: on at Last dose given 12/29/18 at 2345 Vancomycin Dosing: Loading Dose: 1250 mg x1 12/29/18 2345 Dosing Weight: Actual Target Trough: 15-20 A: Based on: Actual Wt and CrCl P: 1. 12/30/18 0800 Vancomycin 750 mg IV q8h 2. Follow up Trough level on 12/30/18 at 2330 3. Pharmacy will continue to monitor, follow and adjust therapy as needed. PRAVEEN GARCIA RPH, 12/30/18 0047 Signed: 12/30/18 at 0048 by PRAVEEN GARCIA RPH PHA
[2018-12-30] MEDS ORDERED: ALPR0.5T6 PO (04:54)
[2018-12-30] MEDS ORDERED: ACET325T9 PO (04:54)
[2018-12-30] MEDS ORDERED: APIX5TAB PO (04:56)
[2018-12-30] MEDS ORDERED: DICL100G18 TP (05:00)
[2018-12-30] MEDS ORDERED: DANT50CA PO (05:00)
[2018-12-30] MEDS ORDERED: DULO30CA2 PO (05:00)
[2018-12-30] MEDS ORDERED: BACL20TA PO (05:00)
[2018-12-30 05:12] LABS: HEMATOCRIT 28.4 % (36.0-47.0); HEMOGLOBIN 8.6 g/dL (12.0-15.5); RED BLOOD COUNT 4.31 x10^6/uL (3.50-5.40); RED CELL DISTRIBUTION WIDTH 23.6 % (11.5-14.5); WHITE BLOOD COUNT 16.7 x10^3/uL (4.0-11.0)
--- NOTE | 2018-12-30 05:41 | NUR ---
Patient admitted to room 106 from ER at 2305 on 12/29/18. VSS. Patient helped to ICU bed. Monitor in place. ST noted. Patient contacted but able to move extremities slightly. 2LNC. No c/o pain or discomfort at this time. Call light is within reach. At 0015, patient's SBP drops from 90s to the upper 70s and lower 80s. Dr. Frankel notified and new order received. Will monitor.
[2018-12-30] MEDS ORDERED: PIPERACILLIN/TAZOBACTAM 3.375 GM in IV NORMAL SALINE 50ML 50 ML IV SCH (06:00)
[2018-12-30 06:05] LABS: ALBUMIN 1.8 g/dL (3.4-5.0); ALBUMIN/GLOBULIN RATIO 0.7 (1.0-1.7); CALCIUM 7.7 mg/dL (8.5-10.1); CREATININE 0.4 mg/dL (0.6-1.0); GFR 172.6; POTASSIUM 3.3 mmol/L (3.5-5.1); TOTAL BILIRUBIN 0.3 mg/dL (0.2-1.0); TOTAL PROTEIN 4.5 g/dL (6.4-8.2)
[2018-12-30] MEDS ORDERED: GUAI600T47 PO (06:26)
[2018-12-30] MEDS ORDERED: LACT1CAP6 PO (06:26)
[2018-12-30] MEDS ORDERED: POLY17PO29 PO (06:26)
[2018-12-30] MEDS ORDERED: LORA10TA3 PO (06:26)
[2018-12-30] MEDS ORDERED: IPRA3AMP29 NEB (06:26)
[2018-12-30] MEDS ORDERED: NICO1PAT25 TP (06:26)
[2018-12-30] MEDS ORDERED: FAMO20TA5 PO (06:26)
[2018-12-30] MEDS ORDERED: NYST100054 PO (06:26)
[2018-12-30] MEDS ORDERED: MULT-460 PO (06:26)
[2018-12-30] MEDS ORDERED: POTA20TA82 PO (06:26)
[2018-12-30] MEDS ORDERED: ONDA4TAB7 PO (06:26)
[2018-12-30] MEDS ORDERED: SENN-37 PO (06:26)
[2018-12-30] MEDS ORDERED: CHOL10003 PO (06:26)
[2018-12-30] MEDS ORDERED: OXYB5TAB7 PO (06:26)
[2018-12-30] MEDS ORDERED: OXYC5CAP PO (06:26)
[2018-12-30] MEDS ORDERED: FLUT16SP NS (06:26)
[2018-12-30] MEDS ORDERED: FERR325T14 PO (06:26)
[2018-12-30] MEDS ORDERED: ELECTROLYTE (ICU) PROTOCOL. MC PRN (08:30)
[2018-12-30] MEDS ORDERED: IV NORMAL SALINE 1000ML BAG 1,000 ML IV ONE ×2 (08:45→11:00)
[2018-12-30] MEDS: VANCOMYCIN 750 MG in IV NORMAL SALINE 250ML 250 ML IV SCH ×2 (09:28→17:26)
--- NOTE | 2018-12-30 10:22 | EKG ---
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
--- NOTE | 2018-12-30 10:51 | HP ---
ADMIT DATE: 12/29/2018 HISTORY OF PRESENT ILLNESS: The patient is a 43-year-old female patient, a resident at [facility] in [place], who apparently was noted yesterday by the nursing staff to be febrile, hypertensive, tachypneic, hypoxic and was therefore transferred to [facility] where she was extensively investigated in the Emergency Room, was eventually admitted to the ICU. She was found to have marked leukocytosis. Her urinalysis showed a large amount of leukocyte esterase and more than 40 wbc's and many bacteria. CT scan showed mucus plugging and postobstructive pulmonary infiltrates. She has also what seems to be circumferential wall thickening involving the left colon to level of the rectum consistent with inflammatory colitis, although it is atypical for ischemic colitis. On arrival to the Emergency Room, she was hypotensive, and she did receive about a total of 2 liters of fluid in the Emergency Room, was started on antibiotics for healthcare-associated pneumonia, although she has multiple possible potential sources of infection. PAST MEDICAL HISTORY: Significant for progressive multiple sclerosis with functional paraplegia. She has factor V Leiden mutation, for which she is on Xarelto. She has a history of factor V Leiden positive in her family, her daughter and her father; however, the patient herself has no history of DVT or PE. She is also known to have chronic obstructive pulmonary disease, severe malnutrition, stage 3 sacral decubitus ulcer. PAST SURGICAL HISTORY: Significant for wound debridement of her coccyx. ALLERGIES: She has no known drug allergies. MEDICATIONS: She is currently on following medications: She is on loratadine 10 mg once a day, nystatin suspension 5 mL 3 times a day swish and swallow. She is on ipratropium bromide, albuterol sulfate for DuoNeb in 3 mL by nebulizer 3 times a day, dantrolene sodium 50 mg 3 times a day, baclofen 20 mg 4 times a day. She is on Nicoderm patch 14 mg topically daily, ferrous sulfate 325 mg once a day, apixaban 5 mg twice a day, diclofenac sodium for Voltaren gel applied topically 3 times a day, oxycodone 7.5 mg every 4 hours as needed, Tylenol 650 mg every 4 hours. Duloxetine for Cymbalta 30 mg daily, alprazolam 0.5 mg at bedtime. Potassium chloride 40 mEq daily. She is on guaifenesin for Mucinex 600 mg twice a day. Flonase 2 sprays to each nostril twice a day. She is on lactobacillus acidophilus for probiotic 2 capsules twice a day, polyethylene glycol 17 grams daily, Senna-S 1 capsule twice a day, ondansetron 4 mg every 4 hours as needed, famotidine 20 mg twice a day, oxybutynin chloride 5 mg 3 times a day, cholecalciferol for vitamin D3 of 1000 International Unit once a day, multivitamin 1 tablet once a day. FAMILY HISTORY: Positive for factor V Leiden in her daughter and father. SOCIAL HISTORY: She is actually currently residing at the [facility] in [place]. She actually is a smoker, although apparently she has not been smoking recently. Does not drink alcohol or use any recreational drugs. REVIEW OF SYSTEMS: As per history of present illness. PHYSICAL EXAMINATION GENERAL: When I examined on arrival to the Emergency Room, she looked pale, cachectic, but no jaundice, cyanosis or thyromegaly. No jugular venous distension. No lower limb edema. VITAL SIGNS: Her heart rate was 137, blood pressure 108/74, temperature was 102.7, respiratory rate 20 and oxygen saturation was only 88% on room air that improved to 90% on 2 liters of oxygen. HEAD, EYES, EARS, NOSE AND THROAT: Normocephalic, atraumatic. NECK: Supple. HEART: Showed normal first and second heart sounds. No gallop, rub or murmur. CHEST: Clear to auscultation. No crepitation or rhonchi. ABDOMEN: Distended, soft, nontender, with no guarding or rigidity. No organomegaly. All hernial orifice intact. Bowel sounds normal. NEUROLOGIC: She is awake, alert, responding appropriately. All cranial nerves intact. She moves upper extremities to much good extent than lower extremities. She has functional paraplegia. She does have a sacrococcygeal decubitus ulcer. She has an indwelling Shafer catheter. LABORATORY DATA: Her lab work on arrival showed her white cell count to be 20,300, hemoglobin 10, hematocrit 33, MCV 66 and platelet count of 425,000, with normal manual differential. Her prothrombin time was 18.5, INR 1.6. aPTT was 40. Her chemistry showed a serum sodium 137, potassium 4.2, chloride 99, bicarbonate 26, anion gap of 12, BUN 9, creatinine 0.5, estimated GFR 133 mL per minute. Her glucose was 98, calcium was 8.4, magnesium was 1.6. Total bilirubin, AST, ALT, alkaline phosphatase were normal. Her total protein was 5.3, albumin was 2.2. Urinalysis showed the urine was yellow, cloudy with a pH of 5.5, specific gravity of 1.030. The urine was negative for protein, glucose, ketones, trace of blood, positive for nitrite, large amount of leukocyte esterase, 0 rbc's, more than 40 wbc's and large amount of bacteria. She did have a CT scan of the chest, abdomen and pelvis which basically showed that the patient has circumferential wall thickening involving the left colon to level of the rectum, which may be seen in the setting of colitis or infectious inflammatory etiology finding or typical of ischemic colitis finding. Filling defects are identified within the right mainstem bronchus and right lower lobe bronchus, which most likely favoring mucus plugging. There is a post-obstructive airspace consolidation, which may represent atelectasis versus infiltrate in the right lower lobe. She has cholelithiasis Shafer catheter, with suspected calcification or dense contrast within the urinary bladder. Her main pancreatic duct measures up to 4 mm, finding may be secondary to parenchymal atrophy. IMPRESSION: In summary, 1. This is a 43-year-old female patient who yet again came with another episode of sepsis with multiple potential sources of infection including her lung, with mucus plugging and postobstructive pneumonia, urinary tract infection and infectious colitis. She has also a wound in her coccyx. 2. Chronic obstructive pulmonary disease. 3. Progressive multiple sclerosis with functional paraplegia, neurogenic bladder requiring indwelling Shafer catheter. 4. She has a factor V Leiden mutation, for which she is on Xarelto. 5. Severe protein calorie malnutrition. PLAN: My plan is to continue with IV antibiotic. We will send stool for C. diff and culture and sensitivity. Her blood and urine were sent for culture and sensitivity. We will consult the infectious disease specialist, the salon customer experience specialist, wound care team as she might require bronchoscopy and removal of the mucus plugs. When she came, she was definitely hypoxic, and she continued to be borderline hypoxic, even on 2 L of oxygen. DICTATIONS ENDS HERE. YOLI MEJIA MD DR: Clari JOB#: [id number] / [id number]
--- NOTE | 2018-12-30 11:16 | CONS ---
DATE OF CONSULTATION: ATTENDING PHYSICIAN: Faina Frankel MD. REASON FOR CONSULTATION: Sepsis. HISTORY OF PRESENT ILLNESS: The patient is a 43-year-old who has history of advanced multiple sclerosis with significant weakness in her extremities. She has a severe wound on her coccyx. She also has history of factor V Leiden mutation, which is hereditary in her family; her daughter and her father had it. She had no history of DVT or pulmonary embolism. She was brought in to [facility] with low blood pressure as well as worsening wounds in her coccyx area. The patient also has a foul smelling wound. She denies any shortness of breath. Denies any headaches, no nausea or vomiting, no diarrhea. She underwent imaging studies that were reviewed by me and include a CT chest, abdomen and pelvis. I have reviewed the CT chest. There is a mucus plug in the right mainstem bronchus and also in the right lower lobe bronchi. There is atelectasis in the right lower lobe. The patient also had a circumferential wall thickening involving the left colon, which is suspicious for colitis. She is not requiring any pressors; however, her blood pressure I was told that normally stays in the low 80s and 70s. She is asymptomatic. She currently has a systolic pressure in the 70s. She is afebrile. I have been asked to see her for further evaluation. She appears dry. PAST MEDICAL HISTORY: Significant for history of advanced multiple sclerosis. History of Factor V Leiden mutation. No history of deep vein thrombosis or pulmonary embolism. PAST SURGICAL HISTORY: No recent surgery. ALLERGIES: None reported in the chart. REVIEW OF SYSTEMS: Twelve-point system obtained. Pertinent positives are discussed in my history of present illness, otherwise noncontributory. All systems that were negative were reviewed as well. SOCIAL HISTORY: Has smoking history for 22 years. PHYSICAL EXAMINATION: VITAL SIGNS: Reviewed. Blood pressure systolic in the 70s, pulse ox 90% on 2 liters, afebrile. HEENT: Sclerae nonicteric. NECK: Supple. LUNGS: With diminished breath sounds bilaterally. CARDIOVASCULAR: Regular rate and rhythm. ABDOMEN: Soft. EXTREMITIES: Bilateral pitting edema. NEUROLOGIC: She has extremely weak strength in upper and lower extremities. LABORATORY DATA: Reviewed. White cell count 16.7, hemoglobin 8.6 and platelets are 321. BUN 7, creatinine 0.4. Albumin is 1.8. INR is 1.6. IMPRESSION: 1. Sepsis / hypotension. Sources are multifactorial and likely abdomen / urinary tract infection along with deep coccyx wound. Her urine has many bacteria and her CT abdomen is showing evidence of colitis. 2. Abnormal CT chest with mucus plugging in the distal right mainstem and right lower lobe along with some atelectasis right lower lobe. At present, she is clinically symptomatic and would benefit from aggressive pulmonary toilet. We will hold off on bronchoscopy. 3. Urinary tract infection. 4. Colitis. 5. Advanced multiple sclerosis. 6. History of factor V Leiden mutation with no evidence of any deep vein thrombosis or pulmonary embolism in the patient. RECOMMENDATIONS: 1. Continue present broad-spectrum antibiotics. 2. Follow all cultures. 3. Follow Infectious Disease recommendation. 4. Incentive spirometry and aggressive pulmonary toilet. 5. Aggressive fluid resuscitation to see an improvement in her blood pressure. 6. Encourage improved nutrition. She has severe protein-calorie malnutrition. 7. Monitor INR. 8. f/u CXR in few days 9. Discussed with RN and RT will follow along with you. Critical care time 35 minutes. NARCISA BURTON MD DR: MAURICE/ronit JOB#: [id number] / [id number] ESTEBAN
[2018-12-30] MEDS: IPRATRPIUM/ALBUTEROL 0.5/2.5MG 3 ML NEBU. NEB SCH ×4 (12:02→23:50)
--- NOTE | 2018-12-30 12:07 | PDOC ---
Infectious Disease Note Vital Sign Vital Signs Vital Signs Date Time Temp Pulse Resp B/P (MAP) Pulse Ox O2 Delivery O2 Flow Rate FiO2 12/30/18 11:00 105 19 75/51 (59) 97 Nasal Cannula 2.0 12/30/18 08:00 98.2 98.2 Labs Lab Laboratory Tests Test 12/29/18 18:25 12/29/18 20:05 12/30/18 00:30 12/30/18 04:00 White Blood Count 20.3 x10^3/uL (4.0-11.0) 16.7 x10^3/uL (4.0-11.0) Red Blood Count 5.04 x10^6/uL (3.50-5.40) 4.31 x10^6/uL (3.50-5.40) Hemoglobin 10.2 g/dL (12.0-15.5) 8.6 g/dL (12.0-15.5) Hematocrit 33.0 % (36.0-47.0) 28.4 % (36.0-47.0) Mean Corpuscular Volume 66 fL (79-100) 66 fL (79-100) Mean Corpuscular Hemoglobin 20 pg (25-35) 20 pg (25-35) Mean Corpuscular Hemoglobin Concent 31 g/dL (31-37) 30 g/dL (31-37) Red Cell Distribution Width 23.9 % (11.5-14.5) 23.6 % (11.5-14.5) Platelet Count 425 x10^3/uL (140-400) 321 x10^3/uL (140-400) Neutrophils (%) (Auto) 80 % (31-73) Lymphocytes (%) (Auto) 8 % (24-48) Monocytes (%) (Auto) 10 % (0-9) Eosinophils (%) (Auto) 2 % (0-3) Basophils (%) (Auto) 0 % (0-3) Neutrophils # (Auto) 16.3 x10^3uL (1.8-7.7) Lymphocytes # (Auto) 1.7 x10^3/uL (1.0-4.8) Monocytes # (Auto) 2.0 x10^3/uL (0.0-1.1) Eosinophils # (Auto) 0.3 x10^3/uL (0.0-0.7) Basophils # (Auto) 0.1 x10^3/uL (0.0-0.2) Segmented Neutrophils % 79 % (35-66) Lymphocytes % 14 % (24-48) Monocytes % 7 % (0-10) Platelet Estimate Increased (ADEQUATE) Giant Platelets Occ Polychromasia Slight Hypochromasia Marked Microcytosis Marked Prothrombin Time 18.5 SEC (11.7-14.0) Prothromb Time International Ratio 1.6 (0.8-1.1) Activated Partial Thromboplast Time 40 SEC (24-38) Sodium Level 137 mmol/L (136-145) 138 mmol/L (136-145) Potassium Level 4.2 mmol/L (3.5-5.1) 3.3 mmol/L (3.5-5.1) Chloride Level 99 mmol/L (98-107) 103 mmol/L (98-107) Carbon Dioxide Level 26 mmol/L (21-32) 24 mmol/L (21-32) Anion Gap 12 (6-14) 11 (6-14) Blood Urea Nitrogen 9 mg/dL (7-20) 7 mg/dL (7-20) Creatinine 0.5 mg/dL (0.6-1.0) 0.4 mg/dL (0.6-1.0) Estimated GFR (Cockcroft-Gault) 133.4 172.6 BUN/Creatinine Ratio 18 (6-20) 18 (6-20) Glucose Level 98 mg/dL (70-99) 77 mg/dL (70-99) Lactic Acid Level 1.0 mmol/L (0.4-2.0) Calcium Level 8.4 mg/dL (8.5-10.1) 7.7 mg/dL (8.5-10.1) Magnesium Level 1.6 mg/dL (1.8-2.4) Total Bilirubin 0.4 mg/dL (0.2-1.0) 0.3 mg/dL (0.2-1.0) Aspartate Amino Transf (AST/SGOT) 10 U/L (15-37) 9 U/L (15-37) Alanine Aminotransferase (ALT/SGPT) 12 U/L (14-59) 8 U/L (14-59) Alkaline Phosphatase 68 U/L (46-116) 57 U/L (46-116) Creatine Kinase 76 U/L (26-192) Creatine Kinase MB (Mass) 0.8 ng/mL (0.0-3.6) Creatine Kinase MB Relative Index 1.1 % (0-4) Troponin I Quantitative < 0.017 ng/mL (0.000-0.055) < 0.017 ng/mL (0.000-0.055) < 0.017 ng/mL (0.000-0.055) Total Protein 5.3 g/dL (6.4-8.2) 4.5 g/dL (6.4-8.2) Albumin 2.2 g/dL (3.4-5.0) 1.8 g/dL (3.4-5.0) Albumin/Globulin Ratio 0.7 (1.0-1.7) 0.7 (1.0-1.7) Urine Collection Type Unknown Urine Color Yellow Urine Clarity Cloudy Urine pH 5.5 Urine Specific [place] >=1.030 Urine Protein Negative mg/dL (NEG-TRACE) Urine Glucose (UA) Negative mg/dL (NEG) Urine Ketones (Stick) Negative mg/dL (NEG) Urine Blood Trace (NEG) Urine Nitrite Positive (NEG) Urine Bilirubin Negative (NEG) Urine Urobilinogen Dipstick 0.2 mg/dL (0.2 mg/dL) Urine Leukocyte Esterase Large (NEG) Urine RBC 0 /HPF (0-2) Urine WBC >40 /HPF (0-4) Urine Squamous Epithelial Cells Mod /LPF Urine Bacteria Many /HPF (0-FEW) Urine Mucus Mod /LPF Objective Assessment sepsis - POA 12/29 ? UTI Colitis Sacral wound stage 3 Mucus plug Plan Plan of Care Cont Vanc and Zosyn D/c Levoflox Add IV Flagyl for now Cont local wound care F/u C-diff F/u labs and cults Thank you # [phone] GARRY HUNTER MD Dec 30, 2018 12:07
--- NOTE | 2018-12-30 12:42 | NUR ---
Wound Care Wound care consult for coccyx wound. Pt has healing stage IV to coccyx. Cleansed wound, applied Aquacel Ag and foam, secured with Tegaderm. Recommend to Change every 2 days. No other wounds noted on full skin inspection. Pt on ICU bed, recommend P500 if transferred to different floor. Pt turned to her back for breakfast, recommend laying on left and right sides except when eating. Pt educated on PU prevention, stated wound had deteriorated since being in [facility] as it was much smaller when last seen by WC team at [facility]. WC will continue to follow for possible changes.
[2018-12-30] MEDS ORDERED: POTASSIUM CHLORIDE 20 MEQ TABLET.ER. PO ONE (13:00)
[2018-12-30] MEDS ORDERED: SENNOSIDES/DOCUSATE 8.6/50MG TABLET. PO PRN (13:00)
[2018-12-30] MEDS ORDERED: ACETAMINOPHEN 325 MG TABLET. PO PRN (13:00)
[2018-12-30] MEDS ORDERED: ONDANSETRON ODT 4 MG TAB.RAPDIS. PO PRN (13:15)
[2018-12-30] MEDS ORDERED: NYSTATIN PO SCH (14:00)
[2018-12-30] MEDS ORDERED: IPRATRPIUM/ALBUTEROL 0.5/2.5MG 3 ML NEBU. NEB SCH (14:00)
[2018-12-30] MEDS: FERROUS SULFATE 325 MG TABLET. PO SCH (14:43)
[2018-12-30] MEDS: OXYBUTYNIN CHLORIDE 5 MG TABLET PO SCH ×2 (14:43→21:07)
[2018-12-30] MEDS: MULTIVITAMIN with MINERAL TABLET. PO SCH (14:44)
[2018-12-30] MEDS: BACLOFEN 10 MG TABLET. PO SCH ×3 (14:44→21:07)
[2018-12-30] MEDS: APIXABAN 5 MG TABLET. PO SCH ×2 (14:44→21:07)
[2018-12-30] MEDS: CETIRIZINE HCL 10 MG TABLET. PO SCH (14:44)
[2018-12-30] MEDS: DULoxetine HCL 30 MG CAPSULE.DR PO SCH (14:44)
[2018-12-30] MEDS: CHOLECALCIFEROL (VITAMIN D3) 1,000 UNIT TABLET PO SCH (14:45)
[2018-12-30] MEDS: NICOTINE 14MG PATCH. TD SCH (14:45)
[2018-12-30] MEDS: PIPERACILLIN/TAZOBACTAM 3.375 GM in IV NORMAL SALINE 50ML 50 ML IV SCH ×2 (14:47→21:09)
[2018-12-30] MEDS: DICLOFENAC SODIUM 1% TOPICAL GEL 100GM TUBE. TP SCH ×2 (14:48→21:08)
[2018-12-30] MEDS ORDERED: POTASSIUM CHLORIDE 20 MEQ TABLET.ER. PO SCH (15:00)
--- NOTE | 2018-12-30 19:38 | PN ---
DATE: 12/30/2018 SUBJECTIVE: The patient is resting, slightly propped up in bed, in no apparent respiratory distress. She is awake, alert. On questioning her, she complained that she has had recurrent bouts of diarrhea and continued to have low blood pressure despite multiple boluses of fluid, however. OBJECTIVE: VITAL SIGNS: Her heart rate is down to 110, the temperature was down to 98.3, respiratory rate was 16, blood pressure was 78/84 and oxygen saturation was 96% on 2 liters of oxygen. HEAD, EYES, EARS, NOSE AND THROAT: Showed normocephalic and atraumatic. NECK: Supple. HEART: Normal first and second sounds. No gallop, rub or murmur. CHEST: Clear to auscultation. No crepitation or rhonchi. ABDOMEN: Scaphoid, soft, nontender. NEUROLOGIC: She was awake, alert, responding appropriately. All her cranial nerves are intact. She moves upper extremities to much good extent. EXTREMITIES: She has functional paraplegia with neurogenic bladder requiring chronic catheter. She has coccygeal decubitus ulcer. Her intake over the last 24 hours was 2740, output was 505. LABORATORY DATA: This morning showed her white cell count was 16,700, hemoglobin 8.6, hematocrit 28.4, MCV 66 and platelet count 321,000. Her chemistry showed her serum sodium was 136, potassium 3.3, chloride 103, bicarbonate 24, anion gap of 11, BUN 7, creatinine 0.4, estimated GFR was 172 mL per minute, her glucose was 77, calcium was 7.7. Total bilirubin, AST, ALT, alkaline phosphatase were normal. Total protein was 4.5, albumin was 1.8. Her urine culture and blood culture are still pending at the time of this dictation. ASSESSMENT: Sepsis with multiple potential source of infection including a postobstructive pneumonia, infectious colitis and probably Clostridium difficile as she has been on antibiotic for a long time. She has also an indwelling catheter and urinary tract infection is obviously a possible source. She has chronic obstructive pulmonary disease with mucus plugging, severe protein-calorie malnutrition, factor V Leiden mutation, for which she is on Eliquis. PLAN: Continue with IV antibiotic. Send stool for C. diff. I have already consulted the coil taper, Infectious Disease specialist as well as the Wound Care team. YOLI MEJIA MD DR: Clari JOB#: [id number] / [id number]
[2018-12-30] MEDS: BUDESONIDE 0.5 MG/2 ML NEBU. NEB SCH (19:45)
[2018-12-30] MEDS: FLUTICASONE 50MCG/NASAL SPRAY 16GM BOTTLE. NS SCH (21:00)
[2018-12-30] MEDS: ALPRAZolam 0.5 MG TABLET PO SCH (21:07)
[2018-12-30] MEDS: FAMOTIDINE 20 MG TABLET. PO SCH (21:07)
[2018-12-30] MEDS: LACTOBACILLUS RHAMNOSUS GG 1 CAPSULE. PO SCH (21:07)
[2018-12-30] MEDS: DANTROLENE 25 MG PO SCH (21:08)
--- NOTE | 2018-12-30 22:19 | CONS ---
DATE OF CONSULTATION: 12/30/2018 LOCATION: The patient is in room ICU 6. REQUESTING PHYSICIAN: Dr. Frankel. REASON FOR CONSULTATION: Sepsis. HISTORY OF PRESENT ILLNESS: The patient is a 43-year-old female with a history of multiple sclerosis. It was recently treated at [facility] and had midline removed recently. She has been staying at the [facility], [place], but per the notes, became febrile, hypertensive, tachypneic and hypoxic on 12/29/2018 and was transferred to [facility]. On arrival, her temperature was 102.7. White blood cell count was 20.3. Urinalysis was collected. She had moderate mucus, moderate squamous cells, many bacteria, greater than 40 wbc's, large leukocyte esterase and nitrite was positive as well. She was placed on vancomycin, Zosyn and levofloxacin. Her blood pressure had dropped in the 70s over 40s. Currently, she is lying in bed. She is a little bit more comfortable currently. She underwent a CT scan of her chest, abdomen and pelvis. The chest was showing she had some mucus plugging in the right main stem bronchus. She also had some circumferential wall thickening involving the left colon, suspicious for colitis. She has a known wound on her back, coccyx area. PAST MEDICAL HISTORY: Positive for advanced multiple sclerosis, factor V Leiden mutation, COPD, malnutrition, stage 3 sacral ulcer and functional paraplegia. PAST SURGICAL HISTORY: Positive for previous wound debridement of her coccyx. REVIEW OF SYSTEMS: Otherwise negative, except as mentioned above. ALLERGIES: No known drug allergies. SOCIAL HISTORY: Again, she is a assisted resident, smoker history. No alcohol. FAMILY HISTORY: Positive for factor V Leiden in her father and daughter. CURRENT MEDICATIONS: Include vancomycin, Zosyn and levofloxacin. Other meds are available and I have reviewed in the chart. PHYSICAL EXAMINATION: VITAL SIGNS: T-max 102.7 rectally, currently 98.2; pulse 105; respirations 19; blood pressure 75/51 and satting 97% on 2 L nasal cannula. CONSTITUTIONAL: She is cooperative. She is no acute distress. She looks comfortable. She is wearing glasses. HEENT: Pupils equal and reactive. Oral cavity, pharynx is clear. NECK: Supple. LUNGS: Decreased in the bases. HEART: S1, S2. ABDOMEN: Soft, nontender. No guarding, no rebound. EXTREMITIES: Have some protective boots in place. They are contracted a little bit. She has trace edema. SKIN: Warm to touch, without signs of rash. She has a stage 3 sacral ulcer. It appears fairly clean. There is no surrounding fluctuance. No drainage, no pus. GENITOURINARY: Shafer catheter is in place. IV site is clean. LABORATORY DATA: White count 16.7, hemoglobin 8.6 and platelets of 321,000. Creatinine 0.4. AST 9, ALT 8. Albumin 1.8. Urine and imaging reviewed in the history of present illness. IMPRESSION: 1. Sepsis, present on admission, 12/29/2018. 2. Questionable urinary tract infection. 3. Colitis. 4. Sacral wound, stage 3. 5. Mucus plug. RECOMMENDATIONS: Continue vancomycin and Zosyn and discontinue levofloxacin. We will add IV Flagyl for now. Continue local wound care. Follow up C. diff. Follow up labs and cultures. Thank for allowing me to participate in this patient's care. Should you have any questions, please do not hesitate to contact me. GARRY HUNTER MD DR: JUDD/ronit JOB#: [id number] / [id number]
[2018-12-30 23:42] LABS: VANC TR 16.2 mcg/mL (10.0-20.0)
[2018-12-31] VITALS (13 sets, daily range): BP systolic 59–89; BP diastolic 38–62
[2018-12-31] MEDS: VANCOMYCIN 750 MG in IV NORMAL SALINE 250ML 250 ML IV SCH ×3 (00:27→16:48)
[2018-12-31] MEDS: PIPERACILLIN/TAZOBACTAM 3.375 GM in IV NORMAL SALINE 50ML 50 ML IV SCH ×5 (00:27→23:55)
[2018-12-31] MEDS: fentaNYL PF VIAL 100 MCG/2 ML VIAL IV PRN ×2 (00:30→05:35)
[2018-12-31] MEDS: VANCOMYCIN PER PHARMACY MC PRN ×2 (01:09→13:57)
--- NOTE | 2018-12-31 01:11 | NUR ---
Pharmacy Vancomycin Dosing Note S: Consulted to monitor and dose vancomycin started 12/29/18. O: LENNY EVERETT is a 43 year old F with Sepsis UTI DECUBITIS . Other Antibiotics: ZOSYN 3.375GM IV Q6H METRONIDAZOLE 500MG IV Q8H (12/30-)PER ID CONSULT LABS: Last BUN: 7 Last Creatinine: 0.4 Creatinine Clearance: >100 (180) mL/min Last WBC: 16.7 Last Platelets: Tmax (past 24 hours): 102.7 Microbiology: BLOOD AND URINE CX PENDING I/O: 6820/505 Drug Levels: Last Trough level: 16.2 on 12/30/18 at 2320 Last dose given 12/30/18 at 1726 Vancomycin Dosing: Dosing Weight: Actual Target Trough: 15-20 A: Based on: Trough, Updated Actual Wt and CrCl P: 1. Continue Vancomycin 750 mg IV q8h 2. Follow up Trough level on 01/01/19 at 1530 3. Pharmacy will continue to monitor, follow and adjust therapy as needed. PRAVEEN GARCIA RPH, 12/31/18 0111 Signed: 12/31/18 at 0114 by PRAVEEN GARCIA RPH PHA
[2018-12-31] MEDS: IPRATRPIUM/ALBUTEROL 0.5/2.5MG 3 ML NEBU. NEB SCH ×6 (04:08→23:19)
[2018-12-31 04:46] LABS: BASO # 0.1 x10^3/uL (0.0-0.2); BASO % 1 % (0-3); EOS # 0.4 x10^3/uL (0.0-0.7); EOS % 4 % (0-3); HEMATOCRIT 25.4 % (36.0-47.0); HEMOGLOBIN 7.9 g/dL (12.0-15.5); LYMPH # 1.2 x10^3/uL (1.0-4.8); LYMPH % 13 % (24-48); MEAN CORPUSCULAR HEMOGLOBIN 20 pg (25-35); MEAN CORPUSCULAR HGB CONC 31 g/dL (31-37); MEAN CORPUSCULAR VOLUME 65 fL (79-100); MONO # 1.1 x10^3/uL (0.0-1.1); MONO % 12 % (0-9); NEUT # 6.5 x10^3uL (1.8-7.7); NEUT % 70 % (31-73); PLATELET COUNT 300 x10^3/uL (140-400); RED BLOOD COUNT 3.88 x10^6/uL (3.50-5.40); RED CELL DISTRIBUTION WIDTH 23.4 % (11.5-14.5); WHITE BLOOD COUNT 9.3 x10^3/uL (4.0-11.0)
[2018-12-31 05:08] LABS: CREATININE 0.5 mg/dL (0.6-1.0); GFR 133.4; POTASSIUM 3.4 mmol/L (3.5-5.1)
--- NOTE | 2018-12-31 06:25 | PDOC ---
PULMONARY PROGRESS NOTES Subjective on 02, is weak, has weak cough, no pain Vitals Vital Signs Date Time Temp Pulse Resp B/P (MAP) Pulse Ox O2 Delivery O2 Flow Rate FiO2 12/31/18 06:09 13 100 Nasal Cannula 2.0 12/31/18 06:00 83 76/50 (59) 12/31/18 04:00 99.1 99.1 Comments ros as mentioned as above other sys otherwise neg ROS: No Nausea General: Alert, No acute distress HEENT: Other (nc at perrl. nose throat clear neck no lad no thyromegaly) Lungs: Clear, Crackles, Other (dull on l) Cardiovascular: S1, S2 Abdomen: Soft, Non-tender Neuro Exam: Alert Extremities: No Edema Skin: Warm Labs Laboratory Tests Test 12/29/18 18:25 12/29/18 20:05 12/30/18 00:30 12/30/18 03:00 White Blood Count 20.3 x10^3/uL (4.0-11.0) Red Blood Count 5.04 x10^6/uL (3.50-5.40) Hemoglobin 10.2 g/dL (12.0-15.5) Hematocrit 33.0 % (36.0-47.0) Mean Corpuscular Volume 66 fL (79-100) Mean Corpuscular Hemoglobin 20 pg (25-35) Mean Corpuscular Hemoglobin Concent 31 g/dL (31-37) Red Cell Distribution Width 23.9 % (11.5-14.5) Platelet Count 425 x10^3/uL (140-400) Neutrophils (%) (Auto) 80 % (31-73) Lymphocytes (%) (Auto) 8 % (24-48) Monocytes (%) (Auto) 10 % (0-9) Eosinophils (%) (Auto) 2 % (0-3) Basophils (%) (Auto) 0 % (0-3) Neutrophils # (Auto) 16.3 x10^3uL (1.8-7.7) Lymphocytes # (Auto) 1.7 x10^3/uL (1.0-4.8) Monocytes # (Auto) 2.0 x10^3/uL (0.0-1.1) Eosinophils # (Auto) 0.3 x10^3/uL (0.0-0.7) Basophils # (Auto) 0.1 x10^3/uL (0.0-0.2) Segmented Neutrophils % 79 % (35-66) Lymphocytes % 14 % (24-48) Monocytes % 7 % (0-10) Platelet Estimate Increased (ADEQUATE) Giant Platelets Occ Polychromasia Slight Hypochromasia Marked Microcytosis Marked Prothrombin Time 18.5 SEC (11.7-14.0) Prothromb Time International Ratio 1.6 (0.8-1.1) Activated Partial Thromboplast Time 40 SEC (24-38) Sodium Level 137 mmol/L (136-145) Potassium Level 4.2 mmol/L (3.5-5.1) Chloride Level 99 mmol/L (98-107) Carbon Dioxide Level 26 mmol/L (21-32) Anion Gap 12 (6-14) Blood Urea Nitrogen 9 mg/dL (7-20) Creatinine 0.5 mg/dL (0.6-1.0) Estimated GFR (Cockcroft-Gault) 133.4 BUN/Creatinine Ratio 18 (6-20) Glucose Level 98 mg/dL (70-99) Lactic Acid Level 1.0 mmol/L (0.4-2.0) Calcium Level 8.4 mg/dL (8.5-10.1) Magnesium Level 1.6 mg/dL (1.8-2.4) Total Bilirubin 0.4 mg/dL (0.2-1.0) Aspartate Amino Transf (AST/SGOT) 10 U/L (15-37) Alanine Aminotransferase (ALT/SGPT) 12 U/L (14-59) Alkaline Phosphatase 68 U/L (46-116) Creatine Kinase 76 U/L (26-192) Creatine Kinase MB (Mass) 0.8 ng/mL (0.0-3.6) Creatine Kinase MB Relative Index 1.1 % (0-4) Troponin I Quantitative < 0.017 ng/mL (0.000-0.055) < 0.017 ng/mL (0.000-0.055) Total Protein 5.3 g/dL (6.4-8.2) Albumin 2.2 g/dL (3.4-5.0) Albumin/Globulin Ratio 0.7 (1.0-1.7) Urine Collection Type Unknown Urine Color Yellow Urine Clarity Cloudy Urine pH 5.5 Urine Specific [place] >=1.030 Urine Protein Negative mg/dL (NEG-TRACE) Urine Glucose (UA) Negative mg/dL (NEG) Urine Ketones (Stick) Negative mg/dL (NEG) Urine Blood Trace (NEG) Urine Nitrite Positive (NEG) Urine Bilirubin Negative (NEG) Urine Urobilinogen Dipstick 0.2 mg/dL (0.2 mg/dL) Urine Leukocyte Esterase Large (NEG) Urine RBC 0 /HPF (0-2) Urine WBC >40 /HPF (0-4) Urine Squamous Epithelial Cells Mod /LPF Urine Bacteria Many /HPF (0-FEW) Urine Mucus Mod /LPF Nasal Screen MRSA (PCR) Positive (Negative) Test 12/30/18 04:00 12/30/18 09:10 12/30/18 23:20 12/31/18 04:30 White Blood Count 16.7 x10^3/uL (4.0-11.0) 9.3 x10^3/uL (4.0-11.0) Red Blood Count 4.31 x10^6/uL (3.50-5.40) 3.88 x10^6/uL (3.50-5.40) Hemoglobin 8.6 g/dL (12.0-15.5) 7.9 g/dL (12.0-15.5) Hematocrit 28.4 % (36.0-47.0) 25.4 % (36.0-47.0) Mean Corpuscular Volume 66 fL (79-100) 65 fL (79-100) Mean Corpuscular Hemoglobin 20 pg (25-35) 20 pg (25-35) Mean Corpuscular Hemoglobin Concent 30 g/dL (31-37) 31 g/dL (31-37) Red Cell Distribution Width 23.6 % (11.5-14.5) 23.4 % (11.5-14.5) Platelet Count 321 x10^3/uL (140-400) 300 x10^3/uL (140-400) Sodium Level 138 mmol/L (136-145) 143 mmol/L (136-145) Potassium Level 3.3 mmol/L (3.5-5.1) 3.4 mmol/L (3.5-5.1) Chloride Level 103 mmol/L (98-107) 109 mmol/L (98-107) Carbon Dioxide Level 24 mmol/L (21-32) 24 mmol/L (21-32) Anion Gap 11 (6-14) 10 (6-14) Blood Urea Nitrogen 7 mg/dL (7-20) 7 mg/dL (7-20) Creatinine 0.4 mg/dL (0.6-1.0) 0.5 mg/dL (0.6-1.0) Estimated GFR (Cockcroft-Gault) 172.6 133.4 BUN/Creatinine Ratio 18 (6-20) Glucose Level 77 mg/dL (70-99) 87 mg/dL (70-99) Calcium Level 7.7 mg/dL (8.5-10.1) 8.0 mg/dL (8.5-10.1) Total Bilirubin 0.3 mg/dL (0.2-1.0) Aspartate Amino Transf (AST/SGOT) 9 U/L (15-37) Alanine Aminotransferase (ALT/SGPT) 8 U/L (14-59) Alkaline Phosphatase 57 U/L (46-116) Troponin I Quantitative < 0.017 ng/mL (0.000-0.055) Total Protein 4.5 g/dL (6.4-8.2) Albumin 1.8 g/dL (3.4-5.0) Albumin/Globulin Ratio 0.7 (1.0-1.7) Clostridium difficile Toxin B Gene Positive (Negative) Vancomycin Level Trough 16.2 mcg/mL (10.0-20.0) Vancomycin Last Dose Date Vancomycin Last Dose Time 1600 Neutrophils (%) (Auto) 70 % (31-73) Lymphocytes (%) (Auto) 13 % (24-48) Monocytes (%) (Auto) 12 % (0-9) Eosinophils (%) (Auto) 4 % (0-3) Basophils (%) (Auto) 1 % (0-3) Neutrophils # (Auto) 6.5 x10^3uL (1.8-7.7) Lymphocytes # (Auto) 1.2 x10^3/uL (1.0-4.8) Monocytes # (Auto) 1.1 x10^3/uL (0.0-1.1) Eosinophils # (Auto) 0.4 x10^3/uL (0.0-0.7) Basophils # (Auto) 0.1 x10^3/uL (0.0-0.2) Laboratory Tests Test 12/30/18 09:10 12/30/18 23:20 12/31/18 04:30 Clostridium difficile Toxin B Gene Positive (Negative) Vancomycin Level Trough 16.2 mcg/mL (10.0-20.0) Vancomycin Last Dose Date [id number] Vancomycin Last Dose Time 1600 White Blood Count 9.3 x10^3/uL (4.0-11.0) Red Blood Count 3.88 x10^6/uL (3.50-5.40) Hemoglobin 7.9 g/dL (12.0-15.5) Hematocrit 25.4 % (36.0-47.0) Mean Corpuscular Volume 65 fL (79-100) Mean Corpuscular Hemoglobin 20 pg (25-35) Mean Corpuscular Hemoglobin Concent 31 g/dL (31-37) Red Cell Distribution Width 23.4 % (11.5-14.5) Platelet Count 300 x10^3/uL (140-400) Neutrophils (%) (Auto) 70 % (31-73) Lymphocytes (%) (Auto) 13 % (24-48) Monocytes (%) (Auto) 12 % (0-9) Eosinophils (%) (Auto) 4 % (0-3) Basophils (%) (Auto) 1 % (0-3) Neutrophils # (Auto) 6.5 x10^3uL (1.8-7.7) Lymphocytes # (Auto) 1.2 x10^3/uL (1.0-4.8) Monocytes # (Auto) 1.1 x10^3/uL (0.0-1.1) Eosinophils # (Auto) 0.4 x10^3/uL (0.0-0.7) Basophils # (Auto) 0.1 x10^3/uL (0.0-0.2) Sodium Level 143 mmol/L (136-145) Potassium Level 3.4 mmol/L (3.5-5.1) Chloride Level 109 mmol/L (98-107) Carbon Dioxide Level 24 mmol/L (21-32) Anion Gap 10 (6-14) Blood Urea Nitrogen 7 mg/dL (7-20) Creatinine 0.5 mg/dL (0.6-1.0) Estimated GFR (Cockcroft-Gault) 133.4 Glucose Level 87 mg/dL (70-99) Calcium Level 8.0 mg/dL (8.5-10.1) Medications Active Scripts Medications Dose Route/Sig Max Daily Dose Days Date Category Vitamin D3 (Cholecalciferol (Vitamin D3)) 1,000 Unit Tablet 1 Tab PO DAILY 12/30/18 Reported Senokot-S Tablet (Sennosides/Docusate Sodium) 1 Each Tablet 1 Tab PO PRN BID PRN 12/30/18 Reported Potassium Chloride 20 Meq Tablet.er 40 Meq PO DAILY 12/30/18 Reported Oxycodone Hcl 5 Mg Capsule 7.5 Mg PO PRN Q4HRS PRN 12/30/18 Reported Oxybutynin Chloride 5 Mg Tablet 5 Mg PO TID 12/30/18 Reported Zofran (Ondansetron Hcl) 4 Mg Tablet 1 Tab PO PRN Q4HRS PRN 12/30/18 Reported Nystatin 100,000 Unit/1 Ml Oral.susp 5 Ml PO TID 12/30/18 Reported NICODERM CQ 14mg (Nicotine) 1 Each Patch.td24 1 Patch TP DAILY 12/30/18 Reported Multiple Vitamin (Multivitamin With Minerals) 1 Each Tablet 1 Each PO DAILY 12/30/18 Reported Miralax (Polyethylene Glycol 3350) 17 Gm Powd.pack 1 Packet PO PRN DAILY 12/30/18 Reported Loratadine 10 Mg Tablet 1 Tab PO DAILY 12/30/18 Reported Probiotic (Lactobacillus Acidophilus) 1 Each Capsule 2 Each PO BID 12/30/18 Reported Duoneb 0.5-3(2.5) Mg/3 Ml (Albuterol/Ipratropium) 3 Ml Ampul.neb 3 Ml NEB TID 12/30/18 Reported Mucinex (Guaifenesin) 600 Mg Tablet.er 1 Tab PO BID 12/30/18 Reported Fluticasone Propionate Nasal [place] (Fluticasone Propionate) 16 Gm [place].susp 2 [place] NS BID 12/30/18 Reported Ferrous Sulfate 325 Mg Tablet 325 Mg PO DAILY 12/30/18 Reported Famotidine 20 Mg Tablet 20 Mg PO BID 12/30/18 Reported Cymbalta (Duloxetine Hcl) 30 Mg Capsule. 30 Mg PO DAILY 12/30/18 Reported Voltaren (Diclofenac Sodium) 100 Gm Gel..gram. 1 Gm TP TID 12/30/18 Reported Dantrolene Sodium 50 Mg Capsule 50 Mg PO TID 12/30/18 Reported Baclofen 20 Mg Tablet 20 Mg PO QID 12/30/18 Reported Eliquis (Apixaban) 5 Mg Tablet 5 Mg PO BID 12/30/18 Reported Alprazolam 0.5 Mg Tablet 1 Tab PO HS 12/30/18 Reported Tylenol (Acetaminophen) 325 Mg Tablet 650 Mg PO PRN Q4HRS PRN 12/30/[address] reviewed, 1. There is circumferential wall thickening involving the left colon to the level of the rectum which may be seen in setting of colitis of infectious/inflammatory etiology. Findings are atypical for ischemic colitis. 2. Filling defects are identified within the right mainstem bronchus and right lower lobe bronchi which most favor mucous plugging. There is post obstructive airspace consolidation which may represent atelectasis versus infiltrate in the right lower lobe. 3. Cholelithiasis. 4. Shafer catheter with suspected calcifications or dense contrast within the urinary bladder. 5. Main pancreatic duct measures up to 4 mm. Findings may be secondary to parenchymal atrophy. Impression . IMPRESSION: 1. Sepsis / hypotension (resolved). Sources are multifactorial and likely abdomen / urinary tract infection along with deep coccyx wound. Her urine has many bacteria and her CT abdomen is showing evidence of colitis. 2. Abnormal CT chest with mucus plugging in the distal right mainstem and right lower lobe along with some atelectasis right lower lobe. At present, she is clinically symptomatic and would benefit from aggressive pulmonary toilet. We will hold off on bronchoscopy. monitor closely 3. Urinary tract infection. 4. c diff Colitis. 5. Advanced multiple sclerosis. 6. History of factor V Leiden mutation with no evidence of any deep vein thrombosis or pulmonary embolism in the patient. Plan . RECOMMENDATIONS: 1. Continue present broad-spectrum antibiotics, per id. 2. Follow all cultures. 3. cont eliquis, pepcid 4. Incentive spirometry and aggressive pulmonary toilet. increase BD to q 4hr. add ICS 5. keep l side more up 6. Encourage improved nutrition. She has severe protein-calorie malnutrition. 7. Monitor INR. 8. f/u CXR in few days 9. elevate HOB Discussed with RN and RT will follow along with you. SAYRA MARQUEZ MD Dec 31, 2018 06:25
[2018-12-31] MEDS: BUDESONIDE 0.5 MG/2 ML NEBU. NEB SCH ×2 (08:39→20:10)
--- NOTE | 2018-12-31 08:54 | PDOC ---
Infectious Disease Note Subjective Subjective Feeling little bit better this morning + diarrhea, denies cramps/N/V No F/C/S ROS ROS per HPI otherwise neg Vital Sign Vital Signs Vital Signs Date Time Temp Pulse Resp B/P (MAP) Pulse Ox O2 Delivery O2 Flow Rate FiO2 12/31/18 08:39 100 Nasal Cannula 2.0 12/31/18 06:09 13 12/31/18 06:00 83 76/50 (59) 12/31/18 04:00 99.1 99.1 Physical Exam PHYSICAL EXAM GENERAL: Resting quietly HEENT: Pupils equal and reactive. Oral cavity, pharynx is clear. NECK: Supple. LUNGS: Decreased in the bases. HEART: S1, S2. regular ABDOMEN: Soft, nontender. No guarding, no rebound. : Shafer EXTREMITIES: Trace edema or cyanosis. + contractures SKIN: Warm to touch, without signs of rash. She has a stage 3 sacral ulcer. It appears fairly clean. There is no surrounding fluctuance. No drainage, no pus. CUSTOMER CARE ASSISTANT: Arouses to name, responds appropriately PIV ok Labs Lab Laboratory Tests Test 12/30/18 09:10 12/30/18 23:20 12/31/18 04:30 Clostridium difficile Toxin B Gene Positive (Negative) Vancomycin Level Trough 16.2 mcg/mL (10.0-20.0) Vancomycin Last Dose Date Vancomycin Last Dose Time 1600 White Blood Count 9.3 x10^3/uL (4.0-11.0) Red Blood Count 3.88 x10^6/uL (3.50-5.40) Hemoglobin 7.9 g/dL (12.0-15.5) Hematocrit 25.4 % (36.0-47.0) Mean Corpuscular Volume 65 fL (79-100) Mean Corpuscular Hemoglobin 20 pg (25-35) Mean Corpuscular Hemoglobin Concent 31 g/dL (31-37) Red Cell Distribution Width 23.4 % (11.5-14.5) Platelet Count 300 x10^3/uL (140-400) Neutrophils (%) (Auto) 70 % (31-73) Lymphocytes (%) (Auto) 13 % (24-48) Monocytes (%) (Auto) 12 % (0-9) Eosinophils (%) (Auto) 4 % (0-3) Basophils (%) (Auto) 1 % (0-3) Neutrophils # (Auto) 6.5 x10^3uL (1.8-7.7) Lymphocytes # (Auto) 1.2 x10^3/uL (1.0-4.8) Monocytes # (Auto) 1.1 x10^3/uL (0.0-1.1) Eosinophils # (Auto) 0.4 x10^3/uL (0.0-0.7) Basophils # (Auto) 0.1 x10^3/uL (0.0-0.2) Sodium Level 143 mmol/L (136-145) Potassium Level 3.4 mmol/L (3.5-5.1) Chloride Level 109 mmol/L (98-107) Carbon Dioxide Level 24 mmol/L (21-32) Anion Gap 10 (6-14) Blood Urea Nitrogen 7 mg/dL (7-20) Creatinine 0.5 mg/dL (0.6-1.0) Estimated GFR (Cockcroft-Gault) 133.4 Glucose Level 87 mg/dL (70-99) Calcium Level 8.0 mg/dL (8.5-10.1) Procalcitonin 0.19 ng/mL (0.00-0.10) Micro Microbiology 12/30/18 Blood Culture - Preliminary, Resulted NO GROWTH AFTER 1 DAY Objective Assessment Sepsis, present on admission, 12/29/2018. Questionable urinary tract infection. UC pending Colitis. C. diff + 12/30 Sacral wound, stage 3. Mucus plug. MRSA screen positive Plan Plan of Care Cont Vanc, Zosyn D/c Flagyl po Vanc Probiotics Cont local wound care F/u labs and cults Contact isolation Supportive care D/w nursing Attending Co-Sign Attending Co-Sign The patient was seen and interviewed as well as examined at the bedside. The chart was reviewed. The case was discussed. Agree with the plan of care. AMY REESE APRN Dec 31, 2018 08:54 GARRY HUNTER MD Dec 31, 2018 14:30
[2018-12-31] MEDS ORDERED: POLYETHYLENE GLYCOL 3350 17 GM PACKET. PO PRN (09:00)
[2018-12-31] MEDS: VANCOMYCIN 125 MG/2.5 ML ORAL SOLUTION. PO SCH ×4 (09:00→21:11)
[2018-12-31] MEDS: DANTROLENE 25 MG PO SCH ×3 (09:00→21:34)
[2018-12-31] MEDS: CETIRIZINE HCL 10 MG TABLET. PO SCH (09:06)
[2018-12-31] MEDS: NICOTINE 14MG PATCH. TD SCH (09:06)
[2018-12-31] MEDS: OXYBUTYNIN CHLORIDE 5 MG TABLET PO SCH ×3 (09:06→21:11)
[2018-12-31] MEDS: DULoxetine HCL 30 MG CAPSULE.DR PO SCH (09:06)
[2018-12-31] MEDS: CHOLECALCIFEROL (VITAMIN D3) 1,000 UNIT TABLET PO SCH (09:06)
[2018-12-31] MEDS: MULTIVITAMIN with MINERAL TABLET. PO SCH (09:07)
[2018-12-31] MEDS: BACLOFEN 10 MG TABLET. PO SCH ×4 (09:07→21:11)
[2018-12-31] MEDS: APIXABAN 5 MG TABLET. PO SCH ×2 (09:07→21:11)
[2018-12-31] MEDS: FERROUS SULFATE 325 MG TABLET. PO SCH (09:07)
[2018-12-31] MEDS: POTASSIUM CHLORIDE 20 MEQ TABLET.ER. PO SCH ×2 (09:07→16:47)
[2018-12-31] MEDS: FAMOTIDINE 20 MG TABLET. PO SCH ×2 (09:07→21:11)
[2018-12-31] MEDS: LACTOBACILLUS RHAMNOSUS GG 1 CAPSULE. PO SCH ×2 (09:08→21:11)
[2018-12-31] MEDS: FLUTICASONE 50MCG/NASAL SPRAY 16GM BOTTLE. NS SCH ×3 (09:09→21:12)
[2018-12-31] MEDS: DICLOFENAC SODIUM 1% TOPICAL GEL 100GM TUBE. TP SCH ×3 (09:09→21:11)
--- NOTE | 2018-12-31 11:31 | NUR ---
RN verified with Dr. Sharma and Dr. Frankel-- order received to downgrade patient to MMOF. Patient being moved to room 530. All belongings with the patient. Report given to Bonita ALBARADO on 5N-- emphasized need to turn patient on left side (patient prefers not to) and to educate her on skin care and turn/cough/deep breathe.
[2018-12-31] MEDS: oxyCODONE IR 5 MG TABLET PO PRN ×2 (12:58→16:58)
[2018-12-31] MEDS: ALPRAZolam 0.5 MG TABLET PO SCH (21:11)
--- NOTE | 2018-12-31 22:03 | PN ---
DATE: 12/31/2018 SUBJECTIVE: The patient is resting, slightly propped up, sleeping comfortably in no apparent distress. On questioning her, she denied any complaints. The nursing staff stated that the patient refused to allow them to change her position. Otherwise, she had an uneventful night. She continues to have diarrhea and her stools came back positive for C. diff toxins. She is also positive for her nasal screen for MRSA with PCR was positive. PHYSICAL EXAMINATION: GENERAL: When I examined her this morning, she looked pale, but no jaundice, cyanosis, or thyromegaly. No jugular venous distension. No lower limb edema. VITAL SIGNS: Her heart rate was 83, blood pressure was 76/60, her temperature was 99.1, respiratory rate was 16 and oxygen saturation was 100% on 2 liters oxygen. HEAD, EYES, EARS, NOSE AND THROAT: Showed normocephalic, atraumatic. NECK: Supple. HEART: Showed normal first and second sounds. No gallop, rub or murmur. CHEST: Clear to auscultation. No crepitation or rhonchi. ABDOMEN: Distended, soft, nontender. NEUROLOGIC: She was sleepy, but arousable. All cranial nerves intact. She moves upper extremities to much good extent than lower extremities, progressive multiple sclerosis with paraplegia and neurogenic bladder requiring indwelling Shafer catheter. She has stage 3 sacral decubitus ulcer. Her intake over the last 24 hours was 2740, output 500. LABORATORY DATA: As of this morning, her white cell count is down to 9,300, hemoglobin 7.9, hematocrit 25, MCV was 65 and platelet count of 300,000. Her chemistry showed a serum sodium 143, potassium 3.4, chloride 109, bicarbonate 24, anion gap of 10, BUN 7, creatinine 0.5, estimated GFR was 153 mL per minute. Glucose 87 and calcium was 8. Her procalcitonin was 0.19. Her total protein was 4.5, albumin was 1.8. ASSESSMENT: 1. Sepsis with multiple potential source of infection including urinary tract infection, postobstructive pneumonia, infectious colitis and so far, her cultures are negative. Her stool for C. diff was positive for which she was started on oral vancomycin. Other medical problems including: a. Progressive multiple sclerosis with paraplegia and neurogenic bladder. b. Chronic obstructive pulmonary disease. c. Severe protein-calorie malnutrition. d. Factor V Leiden, for which she is on Eliquis. PLAN: Continue with the IV antibiotic. Continue with oral vancomycin. Await the result of the blood and urine culture to adjust her antibiotic. Continue with wound care. YOLI MEJIA MD DR: JUJU/ronit JOB#: [id number] / [id number]
[2019-01-01] MEDS: VANCOMYCIN 750 MG in IV NORMAL SALINE 250ML 250 ML IV SCH ×5 (00:40→20:52)
[2019-01-01 03:00] VITALS: BP 84/54
[2019-01-01] MEDS: IPRATRPIUM/ALBUTEROL 0.5/2.5MG 3 ML NEBU. NEB SCH ×4 (03:32→19:14)
[2019-01-01 05:10] LABS: CALCIUM 7.8 mg/dL (8.5-10.1); CREATININE 0.4 mg/dL (0.6-1.0); GFR 172.6
[2019-01-01] MEDS: PIPERACILLIN/TAZOBACTAM 3.375 GM in IV NORMAL SALINE 50ML 50 ML IV SCH ×3 (05:39→16:28)
[2019-01-01 07:00] VITALS: BP 70/42
--- NOTE | 2019-01-01 07:56 | PDOC ---
PULMONARY PROGRESS NOTES Subjective off 02, is weak, sob better, has weak cough, no pain Vitals Vital Signs Date Time Temp Pulse Resp B/P (MAP) Pulse Ox O2 Delivery O2 Flow Rate FiO2 01/01/19 03:33 Room Air 01/01/19 03:00 98.0 85 16 84/54 (64) 90 98.0 12/31/18 18:02 1.0 Comments ros as mentioned as above other sys otherwise neg ROS: No Nausea General: Alert, No acute distress HEENT: Other (nc at perrl. nose throat clear neck no lad no thyromegaly) Lungs: Crackles, Other (dull on l base) Cardiovascular: S1, S2 Abdomen: Soft, Non-tender Neuro Exam: Alert Extremities: No Edema Skin: Warm Labs Laboratory Tests Test 12/30/18 09:10 12/30/18 23:20 12/31/18 04:30 01/01/19 04:30 Clostridium difficile Toxin B Gene Positive (Negative) Vancomycin Level Trough 16.2 mcg/mL (10.0-20.0) Vancomycin Last Dose Date Vancomycin Last Dose Time 1600 White Blood Count 9.3 x10^3/uL (4.0-11.0) Red Blood Count 3.88 x10^6/uL (3.50-5.40) Hemoglobin 7.9 g/dL (12.0-15.5) Hematocrit 25.4 % (36.0-47.0) Mean Corpuscular Volume 65 fL (79-100) Mean Corpuscular Hemoglobin 20 pg (25-35) Mean Corpuscular Hemoglobin Concent 31 g/dL (31-37) Red Cell Distribution Width 23.4 % (11.5-14.5) Platelet Count 300 x10^3/uL (140-400) Neutrophils (%) (Auto) 70 % (31-73) Lymphocytes (%) (Auto) 13 % (24-48) Monocytes (%) (Auto) 12 % (0-9) Eosinophils (%) (Auto) 4 % (0-3) Basophils (%) (Auto) 1 % (0-3) Neutrophils # (Auto) 6.5 x10^3uL (1.8-7.7) Lymphocytes # (Auto) 1.2 x10^3/uL (1.0-4.8) Monocytes # (Auto) 1.1 x10^3/uL (0.0-1.1) Eosinophils # (Auto) 0.4 x10^3/uL (0.0-0.7) Basophils # (Auto) 0.1 x10^3/uL (0.0-0.2) Sodium Level 143 mmol/L (136-145) 145 mmol/L (136-145) Potassium Level 3.4 mmol/L (3.5-5.1) 4.0 mmol/L (3.5-5.1) Chloride Level 109 mmol/L (98-107) 111 mmol/L (98-107) Carbon Dioxide Level 24 mmol/L (21-32) 24 mmol/L (21-32) Anion Gap 10 (6-14) 10 (6-14) Blood Urea Nitrogen 7 mg/dL (7-20) 5 mg/dL (7-20) Creatinine 0.5 mg/dL (0.6-1.0) 0.4 mg/dL (0.6-1.0) Estimated GFR (Cockcroft-Gault) 133.4 172.6 Glucose Level 87 mg/dL (70-99) 91 mg/dL (70-99) Calcium Level 8.0 mg/dL (8.5-10.1) 7.8 mg/dL (8.5-10.1) Procalcitonin 0.19 ng/mL (0.00-0.10) Laboratory Tests Test 01/01/19 04:30 Sodium Level 145 mmol/L (136-145) Potassium Level 4.0 mmol/L (3.5-5.1) Chloride Level 111 mmol/L (98-107) Carbon Dioxide Level 24 mmol/L (21-32) Anion Gap 10 (6-14) Blood Urea Nitrogen 5 mg/dL (7-20) Creatinine 0.4 mg/dL (0.6-1.0) Estimated GFR (Cockcroft-Gault) 172.6 Glucose Level 91 mg/dL (70-99) Calcium Level 7.8 mg/dL (8.5-10.1) Medications Active Scripts Medications Dose Route/Sig Max Daily Dose Days Date Category Vitamin D3 (Cholecalciferol (Vitamin D3)) 1,000 Unit Tablet 1 Tab PO DAILY 12/30/18 Reported Senokot-S Tablet (Sennosides/Docusate Sodium) 1 Each Tablet 1 Tab PO PRN BID PRN 12/30/18 Reported Potassium Chloride 20 Meq Tablet.er 40 Meq PO DAILY 12/30/18 Reported Oxycodone Hcl 5 Mg Capsule 7.5 Mg PO PRN Q4HRS PRN 12/30/18 Reported Oxybutynin Chloride 5 Mg Tablet 5 Mg PO TID 12/30/18 Reported Zofran (Ondansetron Hcl) 4 Mg Tablet 1 Tab PO PRN Q4HRS PRN 12/30/18 Reported Nystatin 100,000 Unit/1 Ml Oral.susp 5 Ml PO TID 12/30/18 Reported NICODERM CQ 14mg (Nicotine) 1 Each Patch.td24 1 Patch TP DAILY 12/30/18 Reported Multiple Vitamin (Multivitamin With Minerals) 1 Each Tablet 1 Each PO DAILY 12/30/18 Reported Miralax (Polyethylene Glycol 3350) 17 Gm Powd.pack 1 Packet PO PRN DAILY 12/30/18 Reported Loratadine 10 Mg Tablet 1 Tab PO DAILY 12/30/18 Reported Probiotic (Lactobacillus Acidophilus) 1 Each Capsule 2 Each PO BID 12/30/18 Reported Duoneb 0.5-3(2.5) Mg/3 Ml (Albuterol/Ipratropium) 3 Ml Ampul.neb 3 Ml NEB TID 12/30/18 Reported Mucinex (Guaifenesin) 600 Mg Tablet.er 1 Tab PO BID 12/30/18 Reported Fluticasone Propionate Nasal [place] (Fluticasone Propionate) 16 Gm [place].susp 2 [place] NS BID 12/30/18 Reported Ferrous Sulfate 325 Mg Tablet 325 Mg PO DAILY 12/30/18 Reported Famotidine 20 Mg Tablet 20 Mg PO BID 12/30/18 Reported Cymbalta (Duloxetine Hcl) 30 Mg Capsule.dr 30 Mg PO DAILY 12/30/18 Reported Voltaren (Diclofenac Sodium) 100 Gm Gel..gram. 1 Gm TP TID 12/30/18 Reported Dantrolene Sodium 50 Mg Capsule 50 Mg PO TID 12/30/18 Reported Baclofen 20 Mg Tablet 20 Mg PO QID 12/30/18 Reported Eliquis (Apixaban) 5 Mg Tablet 5 Mg PO BID 12/30/18 Reported Alprazolam 0.5 Mg Tablet 1 Tab PO HS 12/30/18 Reported Tylenol (Acetaminophen) 325 Mg Tablet 650 Mg PO PRN Q4HRS PRN 12/30/[address] reviewed, 1. There is circumferential wall thickening involving the left colon to the level of the rectum which may be seen in setting of colitis of infectious/inflammatory etiology. Findings are atypical for ischemic colitis. 2. Filling defects are identified within the right mainstem bronchus and right lower lobe bronchi which most favor mucous plugging. There is post obstructive airspace consolidation which may represent atelectasis versus infiltrate in the right lower lobe. 3. Cholelithiasis. 4. Shafer catheter with suspected calcifications or dense contrast within the urinary bladder. 5. Main pancreatic duct measures up to 4 mm. Findings may be secondary to parenchymal atrophy. Impression . IMPRESSION: 1. Sepsis. hypotension (resolved). Sources are multifactorial and likely abdomen / urinary tract infection along with deep coccyx wound. Her urine has many bacteria and her CT abdomen is showing evidence of colitis. c diff colitis 2. Abnormal CT chest with mucus plugging in the distal right mainstem and right lower lobe along with some atelectasis right lower lobe. At present, she is clinically symptomatic and cont aggressive pulmonary toilet. We will hold off on bronchoscopy. monitor closely 3. Urinary tract infection, e coli. 4. c diff Colitis. 5. Advanced multiple sclerosis. 6. History of factor V Leiden mutation with no evidence of any deep vein thrombosis or pulmonary embolism in the patient. Plan . RECOMMENDATIONS: 1. Continue present broad-spectrum antibiotics, per id. 2. Follow all cultures. u cx, e coli 3. cont eliquis, pepcid 4. Incentive spirometry and aggressive pulmonary toilet. BD q 4hr. ICS 5. keep l chest up more often 6. Encourage improved nutrition. She has severe protein-calorie malnutrition. 7. Monitor INR. 8. f/u CXR in am 9. elevate HOB Discussed with RN and PT will follow along with you. SAYRA MARQUEZ MD Jan 01, 2019 07:56
[2019-01-01] MEDS: BUDESONIDE 0.5 MG/2 ML NEBU. NEB SCH ×2 (08:25→19:14)
[2019-01-01] MEDS: FLUTICASONE 50MCG/NASAL SPRAY 16GM BOTTLE. NS SCH ×2 (09:00→21:00)
[2019-01-01] MEDS: POTASSIUM CHLORIDE 20 MEQ TABLET.ER. PO SCH ×2 (09:30→16:27)
[2019-01-01] MEDS: FERROUS SULFATE 325 MG TABLET. PO SCH (09:30)
[2019-01-01] MEDS: oxyCODONE IR 5 MG TABLET PO PRN ×2 (09:30→14:34)
[2019-01-01] MEDS: OXYBUTYNIN CHLORIDE 5 MG TABLET PO SCH ×3 (09:31→20:51)
[2019-01-01] MEDS: LACTOBACILLUS RHAMNOSUS GG 1 CAPSULE. PO SCH ×2 (09:31→20:51)
[2019-01-01] MEDS: CETIRIZINE HCL 10 MG TABLET. PO SCH (09:31)
[2019-01-01] MEDS: DULoxetine HCL 30 MG CAPSULE.DR PO SCH (09:31)
[2019-01-01] MEDS: MULTIVITAMIN with MINERAL TABLET. PO SCH (09:31)
[2019-01-01] MEDS: FAMOTIDINE 20 MG TABLET. PO SCH ×2 (09:31→20:51)
[2019-01-01] MEDS: CHOLECALCIFEROL (VITAMIN D3) 1,000 UNIT TABLET PO SCH (09:32)
[2019-01-01] MEDS: DICLOFENAC SODIUM 1% TOPICAL GEL 100GM TUBE. TP SCH ×3 (09:32→20:51)
[2019-01-01] MEDS: DANTROLENE 25 MG PO SCH ×3 (09:32→20:50)
[2019-01-01] MEDS: BACLOFEN 10 MG TABLET. PO SCH ×4 (09:32→20:51)
[2019-01-01] MEDS: NICOTINE 14MG PATCH. TD SCH (09:32)
[2019-01-01] MEDS: APIXABAN 5 MG TABLET. PO SCH ×2 (09:33→20:51)
[2019-01-01] MEDS: VANCOMYCIN 125 MG/2.5 ML ORAL SOLUTION. PO SCH ×4 (09:44→20:51)
--- NOTE | 2019-01-01 09:51 | PDOC ---
Infectious Disease Note Subjective Subjective Comfortable, denies pain Less diarrhea denies cramps/N/V/F/C/S ROS ROS per HPI otherwise neg Vital Sign Vital Signs Vital Signs Date Time Temp Pulse Resp B/P (MAP) Pulse Ox O2 Delivery O2 Flow Rate FiO2 01/01/19 09:30 96 Room Air 1.0 01/01/19 07:00 97.8 82 16 70/42 (51) 97.8 Physical Exam PHYSICAL EXAM GENERAL: Propped up in bed, alert, NAD HEENT: Pupils equal and reactive. Oral cavity, pharynx is clear. NECK: Supple. LUNGS: Decreased in the bases. HEART: S1, S2. regular ABDOMEN: Soft, nontender. No guarding, no rebound. : Shafer EXTREMITIES: Trace edema or cyanosis. + contractures SKIN: Warm to touch, without signs of rash. Stage 3 sacral ulcer. 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, responds appropriately PIV ok Labs Lab Laboratory Tests Test 01/01/19 04:30 Sodium Level 145 mmol/L (136-145) Potassium Level 4.0 mmol/L (3.5-5.1) Chloride Level 111 mmol/L (98-107) Carbon Dioxide Level 24 mmol/L (21-32) Anion Gap 10 (6-14) Blood Urea Nitrogen 5 mg/dL (7-20) Creatinine 0.4 mg/dL (0.6-1.0) Estimated GFR (Cockcroft-Gault) 172.6 Glucose Level 91 mg/dL (70-99) Calcium Level 7.8 mg/dL (8.5-10.1) Micro Microbiology 12/30/18 Blood Culture - Preliminary, Resulted NO GROWTH AFTER 2 DAY URINE CULTURE RES 1 Preliminary Escherichia coli Greater than 100,000 colony forming units per mL Objective Assessment Sepsis, present on admission, 12/29/2018. Clinically improving Questionable Urinary tract infection w/ E. coli 12/29. Colitis. C. diff + 12/30 Sacral wound, stage 3. Mucus plug. MRSA screen positive Plan Plan of Care Cont IV/PO Vanc and Zosyn for now Probiotics Cont local wound care F/u labs and cults Contact isolation Attending Co-Sign Attending Co-Sign The patient was seen and interviewed as well as examined at the bedside. The chart was reviewed. The case was discussed. Agree with the plan of care. AMY REESE APRN Jan 01, 2019 09:51 GARRY HUNTER MD Jan 01, 2019 11:42
[2019-01-01 11:00] VITALS: BP 88/55
[2019-01-01 15:00] VITALS: BP 86/55
[2019-01-01 16:14] LABS: VANC TR 21.1 mcg/mL (10.0-20.0)
[2019-01-01] MEDS: VANCOMYCIN PER PHARMACY MC PRN (16:45)
--- NOTE | 2019-01-01 16:47 | NUR ---
Pharmacy Vancomycin Dosing Note S:Consulted to monitor and dose vancomycin started 12/29/18. O:LENNY EVERETT is a 43 year old F with Sepsis UTI DECUBITIS . Height: 5 feet, 9 inches Weight: 67.571576 kg [place] Body Weight: 66.20 Adjusted Body Weight: 65.48 Dosing Weight: Actual Other Antibiotics: ZOSYN 3.375GM IV Q6H METRONIDAZOLE 500MG IV Q8H (12/30-)PER ID CONSULT LABS: Last BUN: 7 Last Creatinine: 0.4 Creatinine Clearance: >100 (180) mL/min Last WBC: 9.3 Last Procalcitonin: 0.19 Tmax (past 24 hours): 99.8 Microbiology: BLOOD AND URINE CX PENDING I/O: 3010/970 Drug Levels: Last Trough level: 21.1 on 01/01/19 at 1530 Last dose given 12/30/18 at 1726 Vancomycin Dosing: Loading Dose: 1250 mg x1 Dosing Weight: Actual Target Trough: 15-20 A: Based on: LEVEL P: 1. Change Vancomycin 750 mg IV q12h 2. Follow up Trough level NEEDED 3. Pharmacy will continue to monitor, follow and adjust therapy as needed. MIKAYLA LAUREANO [facility], 01/01/19 [id number]
--- NOTE | 2019-01-01 16:55 | PN ---
DATE: 01/01/2019 SUBJECTIVE: The patient is resting, slightly propped up, sleeping comfortably in no apparent distress. She is arousable. On questioning her, denied any complaint. The nursing staff stated that she has only one soft bowel movement last night. Her urine culture has grown more than 100,000 colony forming units per mL of Escherichia coli. The sensitivity is still pending at the time of this dictation. However, her blood cultures are both negative. PHYSICAL EXAMINATION: GENERAL: When I examined her, she looked pale, cachectic, but no jaundice or cyanosis. No lymphadenopathy, no thyromegaly, no jugular venous distention, no lower limb edema. VITAL SIGNS: Her heart rate was 85, blood pressure was 84/54, temperature was 98, respiratory rate was 16 and oxygen saturation was 90%. The rest of clinical exam is stable, has not really changed. Her intake was 2200, output was 970. ASSESSMENT: 1. Sepsis with multiple potential sources of infection. She definitely has a urinary tract infection with growth of more than 100,000 colony forming per mL of Escherichia coli, Clostridium difficile colitis. 2. Progressive multiple sclerosis with paraplegia and neurogenic bladder. 3. Chronic obstructive pulmonary disease. 4. Severe protein-calorie malnutrition. 5. Factor V Leiden for which she is on Eliquis. PLAN: To continue with IV antibiotic for now, continue with oral vancomycin. Once we have the culture and sensitivity, we will adjust the antibiotic accordingly. YOLI MEJIA MD DR: JUJU/ronit JOB#: [id number] / [id number]
[2019-01-01 19:00] VITALS: BP 96/63
[2019-01-01] MEDS: ALPRAZolam 0.5 MG TABLET PO SCH (20:51)
[2019-01-01 23:00] VITALS: BP 85/58
[2019-01-02] MEDS: PIPERACILLIN/TAZOBACTAM 3.375 GM in IV NORMAL SALINE 50ML 50 ML IV SCH ×2 (00:22→05:25)
[2019-01-02 03:00] VITALS: BP 96/63
[2019-01-02 07:00] VITALS: BP 95/63
[2019-01-02] MEDS: IPRATRPIUM/ALBUTEROL 0.5/2.5MG 3 ML NEBU. NEB SCH ×3 (07:36→20:03)
[2019-01-02] MEDS: BUDESONIDE 0.5 MG/2 ML NEBU. NEB SCH ×3 (07:36→20:03)
--- NOTE | 2019-01-02 08:54 | NUR ---
IP: Pt is C.diff and mrsa screen + requiring contact plus precautions using brown sign.
[2019-01-02] MEDS: FLUTICASONE 50MCG/NASAL SPRAY 16GM BOTTLE. NS SCH ×2 (09:00→21:00)
[2019-01-02] MEDS: CHOLECALCIFEROL (VITAMIN D3) 1,000 UNIT TABLET PO SCH (09:12)
[2019-01-02] MEDS: POTASSIUM CHLORIDE 20 MEQ TABLET.ER. PO SCH ×2 (09:13→18:30)
[2019-01-02] MEDS: FAMOTIDINE 20 MG TABLET. PO SCH ×2 (09:14→21:10)
[2019-01-02] MEDS: BACLOFEN 10 MG TABLET. PO SCH ×4 (09:14→21:09)
[2019-01-02] MEDS: DULoxetine HCL 30 MG CAPSULE.DR PO SCH (09:14)
[2019-01-02] MEDS: MULTIVITAMIN with MINERAL TABLET. PO SCH (09:14)
[2019-01-02] MEDS: OXYBUTYNIN CHLORIDE 5 MG TABLET PO SCH ×3 (09:14→21:10)
[2019-01-02] MEDS: LACTOBACILLUS RHAMNOSUS GG 1 CAPSULE. PO SCH ×2 (09:15→21:10)
[2019-01-02] MEDS: CETIRIZINE HCL 10 MG TABLET. PO SCH (09:16)
[2019-01-02] MEDS: NICOTINE 14MG PATCH. TD SCH (09:17)
[2019-01-02] MEDS: DICLOFENAC SODIUM 1% TOPICAL GEL 100GM TUBE. TP SCH ×3 (09:18→21:09)
[2019-01-02] MEDS: VANCOMYCIN 750 MG in IV NORMAL SALINE 250ML 250 ML IV SCH (09:19)
[2019-01-02] MEDS: DANTROLENE 25 MG PO SCH ×3 (09:20→21:09)
[2019-01-02] MEDS: APIXABAN 5 MG TABLET. PO SCH ×2 (09:21→21:09)
[2019-01-02] MEDS: FERROUS SULFATE 325 MG TABLET. PO SCH (09:21)
[2019-01-02] MEDS: VANCOMYCIN 125 MG/2.5 ML ORAL SOLUTION. PO SCH ×4 (09:21→21:09)
--- NOTE | 2019-01-02 10:27 | PDOC ---
Infectious Disease Note Subjective Subjective Comfortable, denies pain Less diarrhea denies cramps/N/V/F/C/S Vital Sign Vital Signs Vital Signs Date Time Temp Pulse Resp B/P (MAP) Pulse Ox O2 Delivery O2 Flow Rate FiO2 01/02/19 07:36 96 Room Air 01/02/19 07:00 96.4 82 16 95/63 (74) 96.4 01/01/19 19:00 2.0 Physical Exam PHYSICAL EXAM GENERAL: Propped up in bed, alert, NAD HEENT: Pupils equal and reactive. Oral cavity, pharynx is clear. NECK: Supple. LUNGS: Decreased in the bases. HEART: S1, S2. regular ABDOMEN: Soft, nontender. No guarding, no rebound. : Shafer EXTREMITIES: Trace edema or cyanosis. + contractures SKIN: Warm to touch, without signs of rash. Stage 3 sacral ulcer. ulcer seen, clean , unlikely to heal with out flap LINE PRODUCER: ALert, responds appropriately PIV ok Labs Lab Laboratory Tests Test 01/01/19 15:35 Vancomycin Level Trough 21.1 mcg/mL (10.0-20.0) Vancomycin Last Dose Date Unk Vancomycin Last Dose Time Unk Micro Microbiology 12/30/18 Blood Culture - Preliminary, Resulted NO GROWTH AFTER 3 DAYS 12/29/18 Urine Culture - Preliminary, Resulted 12/29/18 Urine Culture Result 1 ([place]) - Preliminary, Resulted Objective Assessment Sepsis, present on admission, 12/29/2018. Clinically improving Questionable Urinary tract infection w/ E. coli 12/29. Colitis. C. diff + 12/30 Sacral wound, stage 3. Mucus plug. MRSA screen positive Plan Plan of Care Cont IV/PO Vanc and Zosyn , pt has been treated with iv antibiotics for 6 wks recently, will change to po off load Probiotics Cont local wound care F/u labs and cults Contact isolation ROSEMARY THOMAS MD Jan 02, 2019 10:27
[2019-01-02 11:00] VITALS: BP 104/70
--- NOTE | 2019-01-02 11:24 | RAD ---
PORTABLE CHEST 1V Clinical indications: Fever and hypoxia. follow up atelectasis COMPARISON: July 09, 2010 chest x-ray. Chest CT dated December 29, 2018. Findings: No acute lung infiltrate or pleural effusion or pulmonary edema or lung mass or pneumothorax is seen. The heart size, pulmonary vasculature, mediastinum and both mikael are unremarkable. Impression: No acute radiographic abnormality is seen. There is improved aeration of the right lung field which may represent interval improvement of mucous plugging seen on the chest CT. Electronically signed by: Angel Grey MD (01/02/2019 11:21 AM) [facility]
--- NOTE | 2019-01-02 11:28 | PDOC ---
PULMONARY PROGRESS NOTES Subjective off 02, is weak, sob better, has weak cough, cannot clear secretions Vitals Vital Signs Date Time Temp Pulse Resp B/P (MAP) Pulse Ox O2 Delivery O2 Flow Rate FiO2 01/02/19 07:36 96 Room Air 01/02/19 07:00 96.4 82 16 95/63 (74) 96.4 01/01/19 19:00 2.0 Comments ros as mentioned as above other sys otherwise neg ROS: No Nausea General: Alert, No acute distress HEENT: Other (nc at perrl. nose throat clear neck no lad no thyromegaly) Lungs: Other (ant rhonchi) Cardiovascular: S1, S2 Abdomen: Soft, Non-tender Neuro Exam: Alert Extremities: No Edema Skin: Warm Labs Laboratory Tests Test 01/01/19 04:30 01/01/19 15:35 Sodium Level 145 mmol/L (136-145) Potassium Level 4.0 mmol/L (3.5-5.1) Chloride Level 111 mmol/L (98-107) Carbon Dioxide Level 24 mmol/L (21-32) Anion Gap 10 (6-14) Blood Urea Nitrogen 5 mg/dL (7-20) Creatinine 0.4 mg/dL (0.6-1.0) Estimated GFR (Cockcroft-Gault) 172.6 Glucose Level 91 mg/dL (70-99) Calcium Level 7.8 mg/dL (8.5-10.1) Vancomycin Level Trough 21.1 mcg/mL (10.0-20.0) Vancomycin Last Dose Date Unk Vancomycin Last Dose Time Unk Laboratory Tests Test 01/01/19 15:35 Vancomycin Level Trough 21.1 mcg/mL (10.0-20.0) Vancomycin Last Dose Date Unk Vancomycin Last Dose Time Unk Medications Active Scripts Medications Dose Route/Sig Max Daily Dose Days Date Category Vitamin D3 (Cholecalciferol (Vitamin D3)) 1,000 Unit Tablet 1 Tab PO DAILY 12/30/18 Reported Senokot-S Tablet (Sennosides/Docusate Sodium) 1 Each Tablet 1 Tab PO PRN BID PRN 12/30/18 Reported Potassium Chloride 20 Meq Tablet.er 40 Meq PO DAILY 12/30/18 Reported Oxycodone Hcl 5 Mg Capsule 7.5 Mg PO PRN Q4HRS PRN 12/30/18 Reported Oxybutynin Chloride 5 Mg Tablet 5 Mg PO TID 12/30/18 Reported Zofran (Ondansetron Hcl) 4 Mg Tablet 1 Tab PO PRN Q4HRS PRN 12/30/18 Reported Nystatin 100,000 Unit/1 Ml Oral.susp 5 Ml PO TID 12/30/18 Reported NICODERM CQ 14mg (Nicotine) 1 Each Patch.td24 1 Patch TP DAILY 12/30/18 Reported Multiple Vitamin (Multivitamin With Minerals) 1 Each Tablet 1 Each PO DAILY 12/30/18 Reported Miralax (Polyethylene Glycol 3350) 17 Gm Powd.pack 1 Packet PO PRN DAILY 12/30/18 Reported Loratadine 10 Mg Tablet 1 Tab PO DAILY 12/30/18 Reported Probiotic (Lactobacillus Acidophilus) 1 Each Capsule 2 Each PO BID 12/30/18 Reported Duoneb 0.5-3(2.5) Mg/3 Ml (Albuterol/Ipratropium) 3 Ml Ampul.neb 3 Ml NEB TID 12/30/18 Reported Mucinex (Guaifenesin) 600 Mg Tablet.er 1 Tab PO BID 12/30/18 Reported Fluticasone Propionate Nasal [place] (Fluticasone Propionate) 16 Gm [place].susp 2 [place] NS BID 12/30/18 Reported Ferrous Sulfate 325 Mg Tablet 325 Mg PO DAILY 12/30/18 Reported Famotidine 20 Mg Tablet 20 Mg PO BID 12/30/18 Reported Cymbalta (Duloxetine Hcl) 30 Mg Capsule.dr 30 Mg PO DAILY 12/30/18 Reported Voltaren (Diclofenac Sodium) 100 Gm Gel..gram. 1 Gm TP TID 12/30/18 Reported Dantrolene Sodium 50 Mg Capsule 50 Mg PO TID 12/30/18 Reported Baclofen 20 Mg Tablet 20 Mg PO QID 12/30/18 Reported Eliquis (Apixaban) 5 Mg Tablet 5 Mg PO BID 12/30/18 Reported Alprazolam 0.5 Mg Tablet 1 Tab PO HS 12/30/18 Reported Tylenol (Acetaminophen) 325 Mg Tablet 650 Mg PO PRN Q4HRS PRN 12/30/[address] reviewed, 1. There is circumferential wall thickening involving the left colon to the level of the rectum which may be seen in setting of colitis of infectious/inflammatory etiology. Findings are atypical for ischemic colitis. 2. Filling defects are identified within the right mainstem bronchus and right lower lobe bronchi which most favor mucous plugging. There is post obstructive airspace consolidation which may represent atelectasis versus infiltrate in the right lower lobe. 3. Cholelithiasis. 4. Shafer catheter with suspected calcifications or dense contrast within the urinary bladder. 5. Main pancreatic duct measures up to 4 mm. Findings may be secondary to parenchymal atrophy. Impression . IMPRESSION: 1. Sepsis. hypotension (resolved). Sources are multifactorial and likely urinary tract infection along with deep coccyx wound. Her urine has many bacteria and her CT abdomen is showing evidence of colitis. c diff colitis/ Urinary tract infection w/ E. coli 12/29. Colitis. C. diff + 12/[address] chest with mucus plugging in the distal right mainstem and right lower lobe along with some atelectasis right lower lobe. At present, she is clinically symptomatic and cont aggressive pulmonary toilet. We will hold off on bronchoscopy. monitor closely 3. Urinary tract infection, e coli. 4. c diff Colitis. 5. Advanced multiple sclerosis. 6. History of factor V Leiden mutation with no evidence of any deep vein thrombosis or pulmonary embolism in the patient. 7. Sacral wound, stage 3. Plan . 1. Continue present broad-spectrum antibiotics, per id. 2. Follow all cultures. u cx, e coli 3. cont eliquis, 4. Incentive spirometry and aggressive pulmonary toilet. BD q 4hr. ICS 5. keep l chest up more often 6. Encourage improved nutrition. She has severe protein-calorie malnutrition. 7. Monitor INR. 8. f/u CXR 01/02. no sig mucous plug. May need Bronch in future, suspect has ongoing central airway mucous plug 9. elevate HOB Discussed with RN / will follow along with you. NARCISA BURTON MD Jan 02, 2019 11:28
[2019-01-02] MEDS: ANTI-COAG MONITOR BY PHARMACY. MC PRN (12:41)
[2019-01-02] MEDS: oxyCODONE IR 5 MG TABLET PO PRN ×2 (14:06→21:24)
[2019-01-02 15:00] VITALS: BP 99/59
--- NOTE | 2019-01-02 15:57 | NUR ---
JORGE following pt for anticipated dc needs. Chart reviewed and DW RN. JORGE confirmed with Jacquelyn at [facility] care and rehab pt is LTC resident. Jacquelyn also confirmed plan of return upon dc. JORGE faxed updated clinicals. Will continue to follow.
--- NOTE | 2019-01-02 17:53 | PN ---
DATE: 01/02/2019 SUBJECTIVE: The patient is resting, slightly propped up, sleeping comfortably, in no apparent distress. On questioning her, denied any complaint. The nursing staff did not voice any concern and states that she had an uneventful night. OBJECTIVE: GENERAL: On examining her, she was pale, cachectic. No jaundice, cyanosis or thyromegaly. No jugular venous distention. No limb edema. VITAL SIGNS: Her heart rate was 77, blood pressure was 96/63, temperature was 97.4, respiratory rate was 18, and oxygen saturation was 96%. HEAD, EYES, EARS, NOSE AND THROAT: Showed normocephalic, atraumatic. NECK: Supple. HEART: Normal first and second sounds. No gallop, rub or murmur. CHEST: Clear to auscultation. No crepitation or rhonchi. ABDOMEN: Distended, soft with suprapubic catheter in place. NEUROLOGIC: She was sleepy, but arousable. All cranial nerves intact. She moves all extremities without difficulty. She has longstanding progressive multiple sclerosis with paraplegia and neurogenic bladder, has stage 3 sacrococcygeal decubitus ulcer. Her intake over the last 24 hours was 2300, output was 970. LABORATORY DATA: Her lab work as of yesterday showed serum sodium of 145, potassium 4, chloride 111, bicarbonate 24, anion gap of 10, BUN 5, creatinine 0.4. Estimated GFR was 172 mL per minute. Her glucose was 91 and calcium was 7.8. Her urine culture has grown greater than 100,000 colony forming units per mL of Escherichia coli. The sensitivity is still pending. Her blood cultures are so far negative after 3 days; however, her stool for C. diff toxins was positive and her nasal screen for MRSA by PCR was positive. ASSESSMENT: 1. Sepsis with multiple potential source of infection. A. Urinary tract infection with growth of more than 100,000 colony forming units per mL of Escherichia coli. B. Diarrhea with positive stool for Clostridium difficile toxins. 2. Progressive multiple sclerosis with paraplegia and neurogenic bladder. 3. Chronic obstructive pulmonary disease. 4. Severe protein-calorie malnutrition. 5. Factor V Leiden for which she is on Eliquis. 6. Stage 3 coccygeal decubitus ulcer. PLAN: To continue with the IV antibiotic. Continue with wound care. Continue with oral vancomycin for her C. diff colitis. Continue with offload her wounds and changing position every 2 hours. YOLI MEJIA MD DR: JUJU/ronit JOB#: [id number] / [id number]
[2019-01-02 19:00] VITALS: BP 135/74
[2019-01-02] MEDS: AMOXICILLIN/K CLAV 875/125MG TABLET. PO SCH (21:09)
[2019-01-02] MEDS: LINEZOLID 600 MG TABLET PO SCH (21:09)
[2019-01-02] MEDS: ALPRAZolam 0.5 MG TABLET PO SCH (21:10)
[2019-01-02 23:03] VITALS: BP 96/67
[2019-01-03 03:07] VITALS: BP 119/76
[2019-01-03 07:00] VITALS: BP 107/70
[2019-01-03] MEDS: BUDESONIDE 0.5 MG/2 ML NEBU. NEB SCH ×2 (07:48→19:27)
[2019-01-03] MEDS: IPRATRPIUM/ALBUTEROL 0.5/2.5MG 3 ML NEBU. NEB SCH ×3 (07:48→19:27)
[2019-01-03] MEDS: POTASSIUM CHLORIDE 20 MEQ TABLET.ER. PO SCH ×2 (07:50→17:30)
[2019-01-03] MEDS: CETIRIZINE HCL 10 MG TABLET. PO SCH (09:00)
[2019-01-03] MEDS: FLUTICASONE 50MCG/NASAL SPRAY 16GM BOTTLE. NS SCH ×2 (09:00→21:00)
[2019-01-03] MEDS: LACTOBACILLUS RHAMNOSUS GG 1 CAPSULE. PO SCH ×2 (09:07→20:31)
[2019-01-03] MEDS: AMOXICILLIN/K CLAV 875/125MG TABLET. PO SCH (09:07)
[2019-01-03] MEDS: DULoxetine HCL 30 MG CAPSULE.DR PO SCH (09:08)
[2019-01-03] MEDS: FERROUS SULFATE 325 MG TABLET. PO SCH (09:08)
[2019-01-03] MEDS: APIXABAN 5 MG TABLET. PO SCH ×2 (09:08→20:31)
[2019-01-03] MEDS: BACLOFEN 10 MG TABLET. PO SCH ×4 (09:08→20:31)
[2019-01-03] MEDS: OXYBUTYNIN CHLORIDE 5 MG TABLET PO SCH ×3 (09:08→20:31)
[2019-01-03] MEDS: LINEZOLID 600 MG TABLET PO SCH ×2 (09:09→20:31)
[2019-01-03] MEDS: CHOLECALCIFEROL (VITAMIN D3) 1,000 UNIT TABLET PO SCH (09:09)
[2019-01-03] MEDS: FAMOTIDINE 20 MG TABLET. PO SCH ×2 (09:09→20:31)
[2019-01-03] MEDS: MULTIVITAMIN with MINERAL TABLET. PO SCH (09:09)
[2019-01-03] MEDS: VANCOMYCIN 125 MG/2.5 ML ORAL SOLUTION. PO SCH ×4 (09:09→20:30)
[2019-01-03] MEDS: NICOTINE 14MG PATCH. TD SCH (09:10)
--- NOTE | 2019-01-03 09:10 | PDOC ---
PULMONARY PROGRESS NOTES Subjective PT NOT SOA Vitals Vital Signs Date Time Temp Pulse Resp B/P (MAP) Pulse Ox O2 Delivery O2 Flow Rate FiO2 01/03/19 07:49 94 Room Air 01/03/19 07:00 98.0 78 18 107/70 (82) 2.0 98.0 ROS: No Nausea, No Chest Pain, No Abdominal Pain, No Increase Cough General: Alert, No acute distress Lungs: Clear Cardiovascular: S1, S2 Abdomen: Soft, Non-tender Neuro Exam: Alert Extremities: No Edema Skin: Warm Labs Laboratory Tests Test 01/01/19 15:35 Vancomycin Level Trough 21.1 mcg/mL (10.0-20.0) Vancomycin Last Dose Date Unk Vancomycin Last Dose Time Unk Medications Active Scripts Medications Dose Route/Sig Max Daily Dose Days Date Category Vitamin D3 (Cholecalciferol (Vitamin D3)) 1,000 Unit Tablet 1 Tab PO DAILY 12/30/18 Reported Senokot-S Tablet (Sennosides/Docusate Sodium) 1 Each Tablet 1 Tab PO PRN BID PRN 12/30/18 Reported Potassium Chloride 20 Meq Tablet.er 40 Meq PO DAILY 12/30/18 Reported Oxycodone Hcl 5 Mg Capsule 7.5 Mg PO PRN Q4HRS PRN 12/30/18 Reported Oxybutynin Chloride 5 Mg Tablet 5 Mg PO TID 12/30/18 Reported Zofran (Ondansetron Hcl) 4 Mg Tablet 1 Tab PO PRN Q4HRS PRN 12/30/18 Reported Nystatin 100,000 Unit/1 Ml Oral.susp 5 Ml PO TID 12/30/18 Reported NICODERM CQ 14mg (Nicotine) 1 Each Patch.td24 1 Patch TP DAILY 12/30/18 Reported Multiple Vitamin (Multivitamin With Minerals) 1 Each Tablet 1 Each PO DAILY 12/30/18 Reported Miralax (Polyethylene Glycol 3350) 17 Gm Powd.pack 1 Packet PO PRN DAILY 12/30/18 Reported Loratadine 10 Mg Tablet 1 Tab PO DAILY 12/30/18 Reported Probiotic (Lactobacillus Acidophilus) 1 Each Capsule 2 Each PO BID 12/30/18 Reported Duoneb 0.5-3(2.5) Mg/3 Ml (Albuterol/Ipratropium) 3 Ml Ampul.neb 3 Ml NEB TID 12/30/18 Reported Mucinex (Guaifenesin) 600 Mg Tablet.er 1 Tab PO BID 12/30/18 Reported Fluticasone Propionate Nasal [place] (Fluticasone Propionate) 16 Gm [place].susp 2 [place] NS BID 12/30/18 Reported Ferrous Sulfate 325 Mg Tablet 325 Mg PO DAILY 12/30/18 Reported Famotidine 20 Mg Tablet 20 Mg PO BID 12/30/18 Reported Cymbalta (Duloxetine Hcl) 30 Mg Capsule.dr 30 Mg PO DAILY 12/30/18 Reported Voltaren (Diclofenac Sodium) 100 Gm Gel..gram. 1 Gm TP TID 12/30/18 Reported Dantrolene Sodium 50 Mg Capsule 50 Mg PO TID 12/30/18 Reported Baclofen 20 Mg Tablet 20 Mg PO QID 12/30/18 Reported Eliquis (Apixaban) 5 Mg Tablet 5 Mg PO BID 12/30/18 Reported Alprazolam 0.5 Mg Tablet 1 Tab PO HS 12/30/18 Reported Tylenol (Acetaminophen) 325 Mg Tablet 650 Mg PO PRN Q4HRS PRN 12/30/[address] reviewed, 1. There is circumferential wall thickening involving the left colon to the level of the rectum which may be seen in setting of colitis of infectious/inflammatory etiology. Findings are atypical for ischemic colitis. 2. Filling defects are identified within the right mainstem bronchus and right lower lobe bronchi which most favor mucous plugging. There is post obstructive airspace consolidation which may represent atelectasis versus infiltrate in the right lower lobe. 3. Cholelithiasis. 4. Shafer catheter with suspected calcifications or dense contrast within the urinary bladder. 5. Main pancreatic duct measures up to 4 mm. Findings may be secondary to parenchymal atrophy. Impression . IMPRESSION: 1. Sepsis. hypotension (resolved). Sources are multifactorial and likely urinary tract infection along with deep coccyx wound. Her urine has many bacteria and her CT abdomen is showing evidence of colitis. c diff colitis/ Urinary tract infection w/ E. coli 12/29. Colitis. C. diff + 12/[address] chest with mucus plugging in the distal right mainstem and right lower lobe along with some atelectasis right lower lobe. 3. Urinary tract infection, e coli. 4. c diff Colitis. 5. Advanced multiple sclerosis. 6. History of factor V Leiden mutation with no evidence of any deep vein thrombosis or pulmonary embolism in the patient. 7. Sacral wound, stage 3. Plan . NOT SYMPTOMATIC NO NEED FOR BRONH CONTINUE THE SAME FOLLOW ID REC IS PD/C PARVEZ HERNANDEZ MD Jan 03, 2019 09:10
[2019-01-03] MEDS: DICLOFENAC SODIUM 1% TOPICAL GEL 100GM TUBE. TP SCH ×3 (09:18→20:30)
[2019-01-03] MEDS: DANTROLENE 25 MG PO SCH ×3 (09:18→20:30)
--- NOTE | 2019-01-03 10:12 | NUR ---
I have read the notes by SN Joshua [facility] and concur. Assisted with dressing change to coccyx. Mc Carey RN [facility]
[2019-01-03 11:00] VITALS: BP 102/67
--- NOTE | 2019-01-03 11:06 | PDOC ---
Infectious Disease Note Subjective Subjective Comfortable, denies pain Less diarrhea denies cramps/N/V/F/C/S Vital Sign Vital Signs Vital Signs Date Time Temp Pulse Resp B/P (MAP) Pulse Ox O2 Delivery O2 Flow Rate FiO2 01/03/19 07:49 94 Room Air 01/03/19 07:00 98.0 78 18 107/70 (82) 2.0 98.0 Physical Exam PHYSICAL EXAM GENERAL: Propped up in bed, alert, NAD HEENT: Pupils equal and reactive. Oral cavity, pharynx is clear. NECK: Supple. LUNGS: Decreased in the bases. HEART: S1, S2. regular ABDOMEN: Soft, nontender. No guarding, no rebound. : Shafer EXTREMITIES: Trace edema or cyanosis. + contractures SKIN: Warm to touch, without signs of rash. Stage 3 sacral ulcer. ulcer seen, clean , unlikely to heal with out flap ABALONE DIVER: ALert, responds appropriately PIV ok Labs Micro NE CULTURE Final Final report URINE CULTURE RES 1 Final Escherichia coli Greater than 100,000 colony forming units per mL Cefazolin <=4 ug/mL Cefazolin with an SULTANA <=16 predicts susceptibility to the oral agents cefaclor, cefdinir, cefpodoxime, cefprozil, cefuroxime, cephalexin, and loracarbef when used for therapy of uncomplicated urinary tract infections due to E. coli, Klebsiella pneumoniae, and Proteus mirabilis. ANTIMICROBIAL SUSCEPTIBILITY Final Comment S = Susceptible; I = Intermediate; R = Resistant P = Positive; N = Negative MICS are expressed in micrograms per mL Antibiotic RSLT#1 RSLT#2 RSLT#3 RSLT#4 Amoxicillin/Clavulanic Acid I =16 Ampicillin R>=32 Cefepime S<=0.12 Ceftriaxone S<=0.25 Cefuroxime I =16 Ciprofloxacin R>=4 Ertapenem S<=0.12 Gentamicin S<=1 Imipenem S<=0.25 Levofloxacin R>=8 Meropenem S<=0.25 Nitrofurantoin S<=16 Piperacillin/Tazobactam S<=4 Tetracycline R>=16 Tobramycin S<=1 Trimethoprim/Sulfa R>=320 Performed at: - [facility] [address], [place], [place] [id number] CONTINUED ON NEXT PAGE Objective Assessment Sepsis, present on admission, 12/29/2018. Clinically improving Questionable Urinary tract infection w/ E. coli 12/29. Colitis. C. diff + 12/30 Sacral wound, stage 3. Mucus plug. MRSA screen positive Plan Plan of Care pt need po omnicef and zyvox for 5 days, po vanco for 2 wks off load Probiotics Cont local wound care F/u labs and cults Contact isolation f/u if needed ROSEMARY THOMAS MD Jan 03, 2019 11:06
[2019-01-03] MEDS: oxyCODONE IR 5 MG TABLET PO PRN (14:01)
[2019-01-03] MEDS: ANTI-COAG MONITOR BY PHARMACY. MC PRN (14:12)
[2019-01-03 15:20] VITALS: BP 110/70
[2019-01-03 19:00] VITALS: BP 101/59
[2019-01-03] MEDS: ALPRAZolam 0.5 MG TABLET PO SCH (20:31)
[2019-01-03] MEDS: CEFDINIR 300 MG CAPSULE PO SCH (20:31)
--- NOTE | 2019-01-03 21:17 | PN ---
DATE: 01/03/2019 SUBJECTIVE: The patient is resting slightly propped up in bed and sleeping comfortably, in no apparent distress. On questioning her, denied any complaint. The nursing staff stated that she had 2 loose bowel movements overnight and she is scheduled for dressing change of her coccygeal decubitus ulcer. OBJECTIVE: GENERAL: On examining her, she looked pale, but no jaundice, cyanosis, or thyromegaly. No jugular venous distension. No lower limb edema. VITAL SIGNS: Her heart rate was 78, blood pressure 107/70, temperature was 98, respiratory rate was 18 and oxygen saturation was 95% on 2 liters of oxygen. HEAD, EYES, EARS, NOSE AND THROAT: Normocephalic, atraumatic. NECK: Supple. HEART: Showed normal first and second heart sounds. No gallop, rub or murmur. CHEST: Clear to auscultation. No crepitation or rhonchi. ABDOMEN: Scaphoid, soft. Suprapubic catheter in place. NEUROLOGIC: She is sleepy, but arousable. All cranial nerves intact. EXTREMITIES: She moves her upper extremities to a much good extent than her lower extremities. She has progressive multiple sclerosis with functional paraplegia, neurogenic bladder. She has stage 3 sacral decubitus ulcer. Her intake over the last 24 hours was incompletely recorded. LABORATORY DATA: Showed a white cell count 9300, hemoglobin 8, hematocrit 25, MCV 65 and platelet count 300,000. Her chemistry showed serum sodium 145, potassium 4, chloride 111, bicarbonate 24, anion gap of 10, BUN 5, creatinine 0.4, estimated GFR was 172 mL per minute, her glucose 91, calcium was 7.8. ASSESSMENT: 1. Sepsis, present on admission with marked hypotension with multifactorial sources including: a. Urinary tract infection with growth of Escherichia coli. b. Colitis and her stool was found to be positive for Clostridium difficile toxins. 2. Chronic obstructive pulmonary disease with mucus plugging of the distal right and main stem and right lower lobe along with some atelectasis in right lower lobe. She is clinically asymptomatic. 3. Progressive multiple sclerosis with functional paraplegia and neurogenic bladder. 4. History of factor V Leiden mutation with no evidence of deep vein thrombosis. 5. Sacral wound, stage 3. PLAN: To continue with oral medication in the form of Augmentin and linezolid as well as oral vancomycin. Continue with wound care. Continue with apixaban for deep vein thrombosis and pulmonary embolism prophylaxis. Continue nutritional support and pain management. We will discuss with the case management. We will discharge her probably tomorrow, back to [facility] in [place]. No further wound treatment needed. YOLI MEJIA MD DR: JUJU/ronit JOB#: [id number] / [id number]
[2019-01-03 23:00] VITALS: BP 93/49
[2019-01-04 03:00] VITALS: BP 81/41
[2019-01-04 07:00] VITALS: BP 81/50
[2019-01-04] MEDS: IPRATRPIUM/ALBUTEROL 0.5/2.5MG 3 ML NEBU. NEB SCH (07:51)
[2019-01-04] MEDS: BUDESONIDE 0.5 MG/2 ML NEBU. NEB SCH (07:52)
[2019-01-04] MEDS: APIXABAN 5 MG TABLET. PO SCH (08:43)
[2019-01-04] MEDS: CHOLECALCIFEROL (VITAMIN D3) 1,000 UNIT TABLET PO SCH (08:43)
[2019-01-04] MEDS: FERROUS SULFATE 325 MG TABLET. PO SCH (08:43)
[2019-01-04] MEDS: MULTIVITAMIN with MINERAL TABLET. PO SCH (08:43)
[2019-01-04] MEDS: OXYBUTYNIN CHLORIDE 5 MG TABLET PO SCH ×2 (08:44→14:00)
[2019-01-04] MEDS: BACLOFEN 10 MG TABLET. PO SCH ×2 (08:44→13:00)
[2019-01-04] MEDS: LINEZOLID 600 MG TABLET PO SCH (08:44)
[2019-01-04] MEDS: POTASSIUM CHLORIDE 20 MEQ TABLET.ER. PO SCH (08:44)
[2019-01-04] MEDS: DULoxetine HCL 30 MG CAPSULE.DR PO SCH (08:44)
[2019-01-04] MEDS: FAMOTIDINE 20 MG TABLET. PO SCH (08:45)
[2019-01-04] MEDS: CEFDINIR 300 MG CAPSULE PO SCH (08:45)
[2019-01-04] MEDS: oxyCODONE IR 5 MG TABLET PO PRN (08:45)
[2019-01-04] MEDS: DICLOFENAC SODIUM 1% TOPICAL GEL 100GM TUBE. TP SCH ×2 (08:46→14:00)
[2019-01-04] MEDS: LACTOBACILLUS RHAMNOSUS GG 1 CAPSULE. PO SCH (08:46)
[2019-01-04] MEDS: DANTROLENE 25 MG PO SCH ×2 (08:46→14:00)
[2019-01-04] MEDS: FLUTICASONE 50MCG/NASAL SPRAY 16GM BOTTLE. NS SCH (08:46)
[2019-01-04] MEDS: CETIRIZINE HCL 10 MG TABLET. PO SCH (08:46)
[2019-01-04] MEDS: NICOTINE 14MG PATCH. TD SCH (08:48)
[2019-01-04] MEDS: VANCOMYCIN 125 MG/2.5 ML ORAL SOLUTION. PO SCH ×2 (08:52→13:00)
[2019-01-04] MEDS ORDERED: VANC125S PO (09:08)
[2019-01-04] MEDS ORDERED: CEFD300C PO (09:08)
[2019-01-04] MEDS ORDERED: LINE600T PO (09:08)
--- NOTE | 2019-01-04 09:10 | DISCH ---
DISCHARGE DISCHARGE INFORMATION: FINAL DIAGNOSIS Problems Medical Problems: (1) Sepsis Status: Acute CONDITION ON DISCHARGE: Stable CODE STATUS: Code Status: Full INTERMEDIATE: SNF STAY <30 DAYS: Yes POST DISCHARGE ORDERS: ACTIVITY ORDERS: Resume previous activity WEIGHT BEARING STATUS: As tolerated DIET AFTER DISCHARGE: Regular WOUND/INCISION CARE: Keep wound/cast CDI TREATMENT/EQUIPMENT ORDERS: ADAPTIVE EQUIPMENT NEEDED: None Physical Therapy For: Evalulation/Treatment Occupational Therapy For: Evaluation/Treatment DISCHARGE MEDICATIONS: Home Meds Active Scripts Vancomycin HCl (Vancomycin HCl) 125 Mg/2.5 Ml Syringe, 125 MG PO QID for c diff for 14 Days, SYR Prov:YOLI MEJIA MD 01/04/19 Linezolid (ZYVOX) 600 Mg Tablet, 600 MG PO BID for uti for 5 Days, #10 TAB Prov:YOLI MEJIA MD 01/04/19 Cefdinir (CEFDINIR) 300 Mg Capsule, 1 CAP PO BID for uti for 5 Days, #10 CAP Prov:YOLI MEJIA MD 01/04/19 Reported Medications Cholecalciferol (Vitamin D3) (VITAMIN D3) 1,000 Unit Tablet, 1 TAB PO DAILY for nutritional support, #30 TAB 5 Refills 12/30/18 Sennosides/Docusate Sodium (SENOKOT-S TABLET) 1 Each Tablet, 1 TAB PO PRN BID PRN for CONSTIPATION, #30 TAB 12/30/18 Potassium Chloride (POTASSIUM CHLORIDE) 20 Meq Tablet.er, 40 MEQ PO DAILY for nutritional supplement, TAB.SR 12/30/18 Oxycodone Hcl (OXYCODONE HCL) 5 Mg Capsule, 7.5 MG PO PRN Q4HRS PRN for PAIN, TAB 0 Refills 12/30/18 Oxybutynin Chloride (OXYBUTYNIN CHLORIDE) 5 Mg Tablet, 5 MG PO TID for overactive bladder, TAB 12/30/18 Ondansetron Hcl (ZOFRAN) 4 Mg Tablet, 1 TAB PO PRN Q4HRS PRN for NAUSEA/VOMITING , #20 TAB 12/30/18 Nystatin (NYSTATIN) 100,000 Unit/1 Ml Oral.susp, 5 ML PO TID for "nutritional supplement", #200 ML 12/30/18 Nicotine (NICODERM CQ 14mg) 1 Each Patch.td24, 1 PATCH TP DAILY for stop smoking , #14 PATCH 12/30/18 Multivitamin With Minerals (MULTIPLE VITAMIN) 1 Each Tablet, 1 EACH PO DAILY for nutritional supplement, TAB 12/30/18 Polyethylene Glycol 3350 (MIRALAX) 17 Gm Powd.pack, 1 PACKET PO PRN DAILY for Constipation, #30 PACKET 3 Refills 12/30/18 Loratadine (LORATADINE) 10 Mg Tablet, 1 TAB PO DAILY for allergies, #30 TAB 5 Refills 12/30/18 Lactobacillus Acidophilus (PROBIOTIC) 1 Each Capsule, 2 EACH PO BID for prophylaxis, CAP 12/30/18 Ipratropium/Albuterol Sulfate (DUONEB 0.5-3(2.5) MG/3 ML) 3 Ml Ampul.neb, 3 ML NEB TID for congestion, EACH 12/30/18 Guaifenesin (MUCINEX) 600 Mg Tablet.er, 1 TAB PO BID for cough; congestion, #14 TAB 12/30/18 Fluticasone Propionate (FLUTICASONE PROPIONATE NASAL SPRAY) 16 Gm [place].susp, 2 SPRAY NS BID for allergies, #1 INHALER 11 Refills 12/30/18 Ferrous Sulfate (FERROUS SULFATE) 325 Mg Tablet, 325 MG PO DAILY for nutritional supplement, TAB 12/30/18 Famotidine (FAMOTIDINE) 20 Mg Tablet, 20 MG PO BID for Indigestion, TAB 12/30/18 Duloxetine Hcl (CYMBALTA) 30 Mg Capsule.dr, 30 MG PO DAILY for Depression, CAP 12/30/18 Diclofenac Sodium (VOLTAREN) 100 Gm Gel..gram., 1 GM TP TID for MS, #100 GM 2 Refills 12/30/18 Dantrolene Sodium (DANTROLENE SODIUM) 50 Mg Capsule, 50 MG PO TID for Muscle spasms, CAP 12/30/18 Baclofen (BACLOFEN) 20 Mg Tablet, 20 MG PO QID for MUSCLE RELAXER, #30 TAB 0 Refills 12/30/18 Apixaban (ELIQUIS) 5 Mg Tablet, 5 MG PO BID for factor V, TAB 12/30/18 Alprazolam (ALPRAZOLAM) 0.5 Mg Tablet, 1 TAB PO HS for Anxiety, #30 TAB 12/30/18 Acetaminophen (TYLENOL) 325 Mg Tablet, 650 MG PO PRN Q4HRS PRN for MILD PAIN / TEMP, TAB 12/30/18 YOLI MEJIA MD Jan 04, 2019 09:09
[2019-01-04 09:24] LABS: HEMOGLOBIN 9.5 g/dL (12.0-15.5); RED BLOOD COUNT 4.64 x10^6/uL (3.50-5.40); RED CELL DISTRIBUTION WIDTH 24.4 % (11.5-14.5)
[2019-01-04 09:33] LABS: ALBUMIN 2.2 g/dL (3.4-5.0); ALBUMIN/GLOBULIN RATIO 0.6 (1.0-1.7); CALCIUM 8.5 mg/dL (8.5-10.1); CREATININE 0.6 mg/dL (0.6-1.0); GFR 108.1; POTASSIUM 4.7 mmol/L (3.5-5.1); TOTAL BILIRUBIN 0.1 mg/dL (0.2-1.0); TOTAL PROTEIN 5.6 g/dL (6.4-8.2)
--- NOTE | 2019-01-04 09:48 | PDOC ---
PULMONARY PROGRESS NOTES Subjective PT NOT SOA Vitals Vital Signs Date Time Temp Pulse Resp B/P (MAP) Pulse Ox O2 Delivery O2 Flow Rate FiO2 01/04/19 08:45 16 Room Air 01/04/19 08:11 96 01/04/19 07:00 97.6 83 81/50 (60) 2.0 97.6 ROS: No Nausea, No Chest Pain, No Abdominal Pain, No Increase Cough General: Alert, No acute distress Lungs: Clear Cardiovascular: S1, S2 Abdomen: Soft, Non-tender Neuro Exam: Alert Extremities: No Edema Skin: Warm Labs Laboratory Tests Test 01/04/19 08:50 White Blood Count 10.0 x10^3/uL (4.0-11.0) Red Blood Count 4.64 x10^6/uL (3.50-5.40) Hemoglobin 9.5 g/dL (12.0-15.5) Hematocrit 30.0 % (36.0-47.0) Mean Corpuscular Volume 65 fL (79-100) Mean Corpuscular Hemoglobin 20 pg (25-35) Mean Corpuscular Hemoglobin Concent 32 g/dL (31-37) Red Cell Distribution Width 24.4 % (11.5-14.5) Platelet Count 420 x10^3/uL (140-400) Sodium Level 142 mmol/L (136-145) Potassium Level 4.7 mmol/L (3.5-5.1) Chloride Level 106 mmol/L (98-107) Carbon Dioxide Level 27 mmol/L (21-32) Anion Gap 9 (6-14) Blood Urea Nitrogen 12 mg/dL (7-20) Creatinine 0.6 mg/dL (0.6-1.0) Estimated GFR (Cockcroft-Gault) 108.1 BUN/Creatinine Ratio 20 (6-20) Glucose Level 90 mg/dL (70-99) Calcium Level 8.5 mg/dL (8.5-10.1) Total Bilirubin 0.1 mg/dL (0.2-1.0) Aspartate Amino Transf (AST/SGOT) 11 U/L (15-37) Alanine Aminotransferase (ALT/SGPT) 12 U/L (14-59) Alkaline Phosphatase 42 U/L (46-116) Total Protein 5.6 g/dL (6.4-8.2) Albumin 2.2 g/dL (3.4-5.0) Albumin/Globulin Ratio 0.6 (1.0-1.7) Laboratory Tests Test 01/04/19 08:50 White Blood Count 10.0 x10^3/uL (4.0-11.0) Red Blood Count 4.64 x10^6/uL (3.50-5.40) Hemoglobin 9.5 g/dL (12.0-15.5) Hematocrit 30.0 % (36.0-47.0) Mean Corpuscular Volume 65 fL (79-100) Mean Corpuscular Hemoglobin 20 pg (25-35) Mean Corpuscular Hemoglobin Concent 32 g/dL (31-37) Red Cell Distribution Width 24.4 % (11.5-14.5) Platelet Count 420 x10^3/uL (140-400) Sodium Level 142 mmol/L (136-145) Potassium Level 4.7 mmol/L (3.5-5.1) Chloride Level 106 mmol/L (98-107) Carbon Dioxide Level 27 mmol/L (21-32) Anion Gap 9 (6-14) Blood Urea Nitrogen 12 mg/dL (7-20) Creatinine 0.6 mg/dL (0.6-1.0) Estimated GFR (Cockcroft-Gault) 108.1 BUN/Creatinine Ratio 20 (6-20) Glucose Level 90 mg/dL (70-99) Calcium Level 8.5 mg/dL (8.5-10.1) Total Bilirubin 0.1 mg/dL (0.2-1.0) Aspartate Amino Transf (AST/SGOT) 11 U/L (15-37) Alanine Aminotransferase (ALT/SGPT) 12 U/L (14-59) Alkaline Phosphatase 42 U/L (46-116) Total Protein 5.6 g/dL (6.4-8.2) Albumin 2.2 g/dL (3.4-5.0) Albumin/Globulin Ratio 0.6 (1.0-1.7) Medications Active Scripts Medications Dose Route/Sig Max Daily Dose Days Date Category Vitamin D3 (Cholecalciferol (Vitamin D3)) 1,000 Unit Tablet 1 Tab PO DAILY 12/30/18 Reported Senokot-S Tablet (Sennosides/Docusate Sodium) 1 Each Tablet 1 Tab PO PRN BID PRN 12/30/18 Reported Potassium Chloride 20 Meq Tablet.er 40 Meq PO DAILY 12/30/18 Reported Oxycodone Hcl 5 Mg Capsule 7.5 Mg PO PRN Q4HRS PRN 12/30/18 Reported Oxybutynin Chloride 5 Mg Tablet 5 Mg PO TID 12/30/18 Reported Zofran (Ondansetron Hcl) 4 Mg Tablet 1 Tab PO PRN Q4HRS PRN 12/30/18 Reported Nystatin 100,000 Unit/1 Ml Oral.susp 5 Ml PO TID 12/30/18 Reported NICODERM CQ 14mg (Nicotine) 1 Each Patch.td24 1 Patch TP DAILY 12/30/18 Reported Multiple Vitamin (Multivitamin With Minerals) 1 Each Tablet 1 Each PO DAILY 12/30/18 Reported Miralax (Polyethylene Glycol 3350) 17 Gm Powd.pack 1 Packet PO PRN DAILY 12/30/18 Reported Loratadine 10 Mg Tablet 1 Tab PO DAILY 12/30/18 Reported Probiotic (Lactobacillus Acidophilus) 1 Each Capsule 2 Each PO BID 12/30/18 Reported Duoneb 0.5-3(2.5) Mg/3 Ml (Albuterol/Ipratropium) 3 Ml Ampul.neb 3 Ml NEB TID 12/30/18 Reported Mucinex (Guaifenesin) 600 Mg Tablet.er 1 Tab PO BID 12/30/18 Reported Fluticasone Propionate Nasal [place] (Fluticasone Propionate) 16 Gm [place].susp 2 [place] NS BID 12/30/18 Reported Ferrous Sulfate 325 Mg Tablet 325 Mg PO DAILY 12/30/18 Reported Famotidine 20 Mg Tablet 20 Mg PO BID 12/30/18 Reported Cymbalta (Duloxetine Hcl) 30 Mg Capsule.dr 30 Mg PO DAILY 12/30/18 Reported Voltaren (Diclofenac Sodium) 100 Gm Gel..gram. 1 Gm TP TID 12/30/18 Reported Dantrolene Sodium 50 Mg Capsule 50 Mg PO TID 12/30/18 Reported Baclofen 20 Mg Tablet 20 Mg PO QID 12/30/18 Reported Eliquis (Apixaban) 5 Mg Tablet 5 Mg PO BID 12/30/18 Reported Alprazolam 0.5 Mg Tablet 1 Tab PO HS 12/30/18 Reported Tylenol (Acetaminophen) 325 Mg Tablet 650 Mg PO PRN Q4HRS PRN 12/30/[address] reviewed, 1. There is circumferential wall thickening involving the left colon to the level of the rectum which may be seen in setting of colitis of infectious/inflammatory etiology. Findings are atypical for ischemic colitis. 2. Filling defects are identified within the right mainstem bronchus and right lower lobe bronchi which most favor mucous plugging. There is post obstructive airspace consolidation which may represent atelectasis versus infiltrate in the right lower lobe. 3. Cholelithiasis. 4. Shafer catheter with suspected calcifications or dense contrast within the urinary bladder. 5. Main pancreatic duct measures up to 4 mm. Findings may be secondary to parenchymal atrophy. Impression . IMPRESSION: 1. Sepsis. hypotension (resolved). Sources are multifactorial and likely urinary tract infection along with deep coccyx wound. Her urine has many bacteria and her CT abdomen is showing evidence of colitis. c diff colitis/ Urinary tract infection w/ E. coli 12/29. Colitis. C. diff + 12/[address] chest with mucus plugging in the distal right mainstem and right lower lobe along with some atelectasis right lower lobe. 3. Urinary tract infection, e coli. 4. c diff Colitis. 5. Advanced multiple sclerosis. 6. History of factor V Leiden mutation with no evidence of any deep vein thrombosis or pulmonary embolism in the patient. 7. Sacral wound, stage 3. Plan . NOT SYMPTOMATIC NO NEED FOR BRONH CONTINUE THE SAME FOLLOW ID REC IS PD/C PARVEZ HERNANDEZ MD Jan 04, 2019 09:48
--- NOTE | 2019-01-04 10:16 | PDOC ---
Infectious Disease Note Subjective Subjective Comfortable, denies pain Less diarrhea denies cramps/N/V/F/C/S Vital Sign Vital Signs Vital Signs Date Time Temp Pulse Resp B/P (MAP) Pulse Ox O2 Delivery O2 Flow Rate FiO2 01/04/19 09:45 96 Room Air 2.0 01/04/19 08:45 16 01/04/19 07:00 97.6 83 81/50 (60) 97.6 Physical Exam PHYSICAL EXAM GENERAL: Propped up in bed, alert, NAD HEENT: Pupils equal and reactive. Oral cavity, pharynx is clear. NECK: Supple. LUNGS: Decreased in the bases. HEART: S1, S2. regular ABDOMEN: Soft, nontender. No guarding, no rebound. : Shafer EXTREMITIES: Trace edema or cyanosis. + contractures SKIN: Warm to touch, without signs of rash. Stage 3 sacral ulcer. ulcer seen, clean , unlikely to heal with out flap SERVICE ASSOCIATE: ALert, responds appropriately PIV ok Labs Lab Laboratory Tests Test 01/04/19 08:50 White Blood Count 10.0 x10^3/uL (4.0-11.0) Red Blood Count 4.64 x10^6/uL (3.50-5.40) Hemoglobin 9.5 g/dL (12.0-15.5) Hematocrit 30.0 % (36.0-47.0) Mean Corpuscular Volume 65 fL (79-100) Mean Corpuscular Hemoglobin 20 pg (25-35) Mean Corpuscular Hemoglobin Concent 32 g/dL (31-37) Red Cell Distribution Width 24.4 % (11.5-14.5) Platelet Count 420 x10^3/uL (140-400) Sodium Level 142 mmol/L (136-145) Potassium Level 4.7 mmol/L (3.5-5.1) Chloride Level 106 mmol/L (98-107) Carbon Dioxide Level 27 mmol/L (21-32) Anion Gap 9 (6-14) Blood Urea Nitrogen 12 mg/dL (7-20) Creatinine 0.6 mg/dL (0.6-1.0) Estimated GFR (Cockcroft-Gault) 108.1 BUN/Creatinine Ratio 20 (6-20) Glucose Level 90 mg/dL (70-99) Calcium Level 8.5 mg/dL (8.5-10.1) Total Bilirubin 0.1 mg/dL (0.2-1.0) Aspartate Amino Transf (AST/SGOT) 11 U/L (15-37) Alanine Aminotransferase (ALT/SGPT) 12 U/L (14-59) Alkaline Phosphatase 42 U/L (46-116) Total Protein 5.6 g/dL (6.4-8.2) Albumin 2.2 g/dL (3.4-5.0) Albumin/Globulin Ratio 0.6 (1.0-1.7) Micro NE CULTURE Final Final report URINE CULTURE RES 1 Final Escherichia coli Greater than 100,000 colony forming units per mL Cefazolin <=4 ug/mL Cefazolin with an SULTANA <=16 predicts susceptibility to the oral agents cefaclor, cefdinir, cefpodoxime, cefprozil, cefuroxime, cephalexin, and loracarbef when used for therapy of uncomplicated urinary tract infections due to E. coli, Klebsiella pneumoniae, and Proteus mirabilis. ANTIMICROBIAL SUSCEPTIBILITY Final Comment S = Susceptible; I = Intermediate; R = Resistant P = Positive; N = Negative MICS are expressed in micrograms per mL Antibiotic RSLT#1 RSLT#2 RSLT#3 RSLT#4 Amoxicillin/Clavulanic Acid I =16 Ampicillin R>=32 Cefepime S<=0.12 Ceftriaxone S<=0.25 Cefuroxime I =16 Ciprofloxacin R>=4 Ertapenem S<=0.12 Gentamicin S<=1 Imipenem S<=0.25 Levofloxacin R>=8 Meropenem S<=0.25 Nitrofurantoin S<=16 Piperacillin/Tazobactam S<=4 Tetracycline R>=16 Tobramycin S<=1 Trimethoprim/Sulfa R>=320 Performed at: DA - [facility] [address], [place], [place] [id number] CONTINUED ON NEXT PAGE Objective Assessment Sepsis, present on admission, 12/29/2018. improved Questionable Urinary tract infection w/ E. coli 12/29. Colitis. C. diff + 12/30 Sacral wound, stage 3. Mucus plug. MRSA screen positive Plan Plan of Care pt need po omnicef and zyvox for 5 days, po vanco for 2 wks off load Probiotics Cont local wound care F/u labs and cults Contact isolation f/u if needed ok to d/c ROSEMARY THOMAS MD Jan 04, 2019 10:16
[2019-01-04 11:00] VITALS: BP 99/60
--- NOTE | 2019-01-04 11:16 | NUR ---
SW following pt. JORGE phoned and faxed orders to [facility]. JORGE arranged transportation via [facility] at 1500. JORGE left a voice mail to pt's father regarding plan. Packet on chart. ALICJA ALBARADO.
--- NOTE | 2019-01-04 13:41 | DS ---
DATE OF DISCHARGE: 01/04/2019 HOSPITAL COURSE: The patient is resting slightly propped up in bed, in no apparent distress, awake, alert. On questioning her, denied any complaint. The nursing staff did not voice any concerns. She had an uneventful night. PHYSICAL EXAMINATION: GENERAL: When I examined her, she looked pale, cachectic, but no jaundice, cyanosis, or thyromegaly. No jugular venous distension. No lymphedema. VITAL SIGNS: Her heart rate was 83, blood pressure was 81/50, temperature was 97.6, respiratory rate was 14 and oxygen saturation was 95% on room air. HEAD, EYES, EARS, NOSE AND THROAT: Showed normocephalic, atraumatic. NECK: Supple. HEART: Showed normal first and second heart sounds. No gallop, rub or murmur. CHEST: Clear to auscultation. No crepitation or rhonchi. ABDOMEN: Distended, soft, nontender. No guarding or rigidity. No organomegaly. All hernial orifices intact. Bowel sounds normal. NEUROLOGIC: She was awake, alert, responding appropriately. All cranial nerves intact. She moves upper extremities to much greater extent than lower extremities. She has functional paraplegia due to progressive multiple sclerosis with neurogenic bladder. SKIN: She has stage 3 sacral decubitus ulcer. INS AND OUTS: Her intake and output are incompletely recorded. LABORATORY DATA: Most recent lab work showed a serum sodium of 145, potassium 4, chloride 111, bicarbonate 24, anion gap of 10, BUN 5, creatinine 0.4, estimated GFR was 172 mL per minute. Her glucose was 91, calcium was 7.8. Her white cell count was 9300, hemoglobin 8, hematocrit 25, MCV 65 and platelet count of 300,000. Her C. diff toxins were positive and her nasal screen for MRSA by PCR was positive. Her urine culture has grown more than 100,000 colony forming units per mL of Escherichia coli sensitive to cephalosporins. DISCHARGE MEDICATIONS: The patient was discharged to [facility] in [place] to continue on cefdinir 300 mg capsule twice a day for 5 more days, linezolid for Zyvox 600 mg twice a day for 5 more days, vancomycin 125 mg per 2.5 mL syringe 4 times a day for 14 days for C. diff colitis. She would continue on her acetaminophen 650 mg every 4 hours, alprazolam 0.5 mg at bedtime, apixaban 5 mg twice a day, baclofen 20 mg 4 times a day, cholecalciferol for vitamin D3 at 1000 International Unit once a day, dantrolene sodium 50 mg 3 times a day, diclofenac sodium 1 gram applied topically 2 times a day, duloxetine for Cymbalta 30 mg daily, famotidine 20 mg twice a day, ferrous sulfate 325 mg daily, Flonase 2 sprays to each nostril once a day, Mucinex 600 mg twice a day, ipratropium bromide/albuterol sulfate for DuoNeb 3 times a day, lactobacillus acidophilus 2 capsules twice a day, loratadine 10 mg daily, multivitamin 1 tablet once a day, Nicoderm 14 mg patch topically daily, nystatin swish and swallow 3 times a day, ondansetron for Zofran 4 mg every 4 hours as needed, oxybutynin chloride 5 mg 3 times a day, oxycodone 7.5 mg every 4 hours, polyethylene glycol 17 grams daily, potassium chloride 40 mEq daily, senna-S 1 tablet twice a day as needed for constipation. FINAL DISCHARGE DIAGNOSES: 1. Sepsis, present on admission with marked hypotension, with multiple sources of infection including urinary tract infection with growth of Escherichia coli, the colitis and her stool was found to be positive for Clostridium difficile toxins. 2. Chronic obstructive pulmonary disease with mucus plugging in the distal right and mainstem, right lower lobe along with some atelectasis in the right lower lobe. She is clinically asymptomatic. 3. Progressive multiple sclerosis with functional paraplegia and neurogenic bladder. 4. History of factor V Leiden mutation with no evidence of deep vein thrombosis. 5. Sacral wound, stage 3. YOLI MEJIA MD DR: JUJU/ronit JOB#: [id number] / [id number]
--- NOTE | 2019-01-04 15:35 | NUR ---
VSS-AFEBRILE. LUNGS CLEAR/DIMINISHED IN ALL CHRISTENSEN BILATERALLY. DISCUSSED DC INSTRUCTIONS, VERBALIZED UNDERSTANDING. NO STOOLS THIS SHIFT. RAHMAN REMAINS IN. TOLERATED MEALS AND PO MEDICATIONS WITH NO REPORTED N/V. COCCYX WOUND DRESSING DRY AND INTACT. REPORT CALLED TO [facility]. CALLS APPOPRIATELY FOR ANY NEEDED ASSISTANCE. LEFT UNIT WITH EMS PERSONNEL AND ALL PAPERWORK.
== END 2019-01-04 15:42 | DRG 871 ==
LOC: ER 18:06 → 1 WEST ICU 20:55 → 5 NORTH 12-31 11:30
PROVIDERS: ADMIT Internal Medicine; ATTEND Internal Medicine
DX: A41.9 Sepsis, unspecified organism (principal); L89.153 Pressure ulcer of sacral region, stage 3; E43 Unspecified severe protein-calorie malnutrition; J18.9 Pneumonia, unspecified organism; J44.0 Chronic obstructive pulmonary disease with (acute) lower respiratory infection; A04.72 Enterocolitis due to Clostridium difficile, not specified as recurrent; N39.0 Urinary tract infection, site not specified; T17.890A Other foreign object in other parts of respiratory tract causing asphyxiation, initial encounter; T17.590A Other foreign object in bronchus causing asphyxiation, initial encounter; J98.11 Atelectasis; G82.20 Paraplegia, unspecified; A09 Infectious gastroenteritis and colitis, unspecified; D68.51 Activated protein C resistance; B96.20 Unspecified Escherichia coli [E. coli] as the cause of diseases classified elsewhere; Y95 Nosocomial condition; B95.62 Methicillin resistant Staphylococcus aureus infection as the cause of diseases classified elsewhere; G35 Multiple sclerosis; N31.9 Neuromuscular dysfunction of bladder, unspecified; B96.89 Other specified bacterial agents as the cause of diseases classified elsewhere; X58.XXXA Exposure to other specified factors, initial encounter; Z91.041 Radiographic dye allergy status; Z68.23 Body mass index [BMI] 23.0-23.9, adult; Y93.89 Activity, other specified; Y92.89 Other specified places as the place of occurrence of the external cause; Y99.8 Other external cause status; Z79.01 Long term (current) use of anticoagulants; Z87.891 Personal history of nicotine dependence; Z84.89 Family history of other specified conditions
CPT/HCPCS: 36415; 71045; 71260; 74177; 80048; 80053; 80202; 81001; 82553; 83605; 83735; 84145; 84484; 85007; 85025; 85027; 85610; 85730; 87040; 87086; 87186; 87493; 87641; 93005; 94640; 94760; 96365; 96366; 96367; 96375; 99291; A4314; G0238; J1956; J2543; J3010; J3370; J3490; J7030; J7050; J7620; J7626; Q9967

== ENCOUNTER 2019-03-04 09:52 | Inpatient (IN) | payer MEDICARE, OTHER ==
[~2019-03-04] VITALS: Ht 162.6 cm; Wt 63.2 kg
[2019-03-04] VITALS (11 sets, daily range): BP systolic 60–85; BP diastolic 42–60
[~2019-03-04 09:52] MED LIST changes: +ACET325T9 PO; +ALPR0.5T6 PO; +APIX5TAB PO; +CEFD300C PO; +CHOL10003 PO; +DANT50CA PO; +DICL100G18 TP; +FAMO20TA5 PO; +FERR325T14 PO; +FLUT16SP NS; +GUAI600T47 PO; +IPRA3AMP29 NEB; +LACT1CAP6 PO; +LINE600T PO; +MULT-460 PO; +NICO1PAT25 TP; +NYST100054 PO; +ONDA4TAB7 PO; +OXYB5TAB7 PO; +OXYC5CAP PO; +POLY17PO29 PO; +POTA20TA82 PO; +SENN-37 PO; +VANC125S PO
[2019-03-04] MEDS ORDERED: ACETAMINOPHEN 650 MG SUPP.RECT. PR ONE (10:15)
[2019-03-04] MEDS ORDERED: IV NORMAL SALINE 1000ML BAG 1,000 ML IV ONE ×3 (10:15→12:45)
[2019-03-04] MEDS ORDERED: PIPERACILLIN/TAZOBACTAM 3.375 GM in IV NORMAL SALINE 50ML 50 ML IV ONE (10:30)
--- NOTE | 2019-03-04 10:49 | PHYS DOC ---
Past Medical History Past Medical History: Other Additional Past Medical Histor: MS,FACTOR 5,WOUND ON COCCYX Past Surgical History: Other Additional Past Surgical Histo: DEBRIDMENT ON COCCYX Alcohol Use: None Drug Use: Marijuana Adult General Chief Complaint Chief Complaint: ALTERED MENTAL STATUS HPI HPI 43-year-old female presents to ER via EMS from [facility] for decreased level of consciousness and fever. Per [facility] staff patient had 101.4 temperature with 87% room air saturation this morning. Patient was started on oral doxycycline last night for stage IV coccyx wound. Patient was administered a DuoNeb treatment this morning. Patient per nurse at [facility] had complained of some chest pain yesterday and had nonproductive cough. Per [facility] staff patient just finished IV cefepime last week for a UTI and had a PICC line removed. Review of Systems Review of Systems Unable to obtain with pt's current medical condition Current Medications Current Medications Current Medications Medications (Trade) Dose Ordered Sig/Amber Start Time Stop Time Status Last Admin Dose Admin Acetaminophen (Tylenol Supp) 650 mg 1X ONCE 03/04/19 10:15 03/04/19 10:16 DC 03/04/19 10:30 650 MG Piperacillin Sod/ Tazobactam Sod 3.375 gm/Sodium Chloride 50 ml @ 100 mls/hr 1X ONCE 03/04/19 10:30 03/04/19 10:59 DC 03/04/19 10:40 100 MLS/HR Sodium Chloride 1,000 ml @ 1,000 mls/hr 1X ONCE 03/04/19 10:15 03/04/19 11:14 DC 03/04/19 10:40 1,000 MLS/HR Allergies Allergies Allergies Coded Allergies Type Severity Reaction Last Updated Verified I S O L A T I O N *CONTACT* Allergy Unknown 01/02/19 Yes No Known Medication Allergies Allergy Unknown 04/28/17 Yes Physical Exam Physical Exam Constitutional: HENT: Normocephalic, atraumatic, bilateral ears normal, mucous membranes pale/dry, no oral exudates, nose normal. [] Eyes: 4-5 mm bilat. slugglish, conjunctiva normal, no discharge. [] Neck: Supple, no stridor/gross adenopathy- no crepitus Cardiovascular: Tachycardic heart rate regular rhythm, no murmur [] Lungs & Thorax: Bilateral breath sounds clear to auscultation [] Abdomen: Hypoactive bowel sounds normal, soft, no masses, no pulsatile masses. [] Skin: Cool, dry, no erythema, no rash. [] Back: Sacral decubitus ulceration- per nsg home rated at Stage 4 Extremities: No cyanosis, no edema. 2+ radial; 1+ dorsalis pedis Neurologic: Eyes open not reacting to stimuli painful/voice, contracted in bilat. LEs Psychologic: No restlessness/agitation Current Patient Data Vital Signs Vital Signs Date Time Temp Pulse Resp B/P (MAP) Pulse Ox O2 Delivery O2 Flow Rate FiO2 03/04/19 10:00 99.7 145 24 112/75 (87) 95 Nasal Cannula 3.0 99.7 Lab Values Laboratory Tests Test 03/04/19 10:40 03/04/19 11:33 03/04/19 11:40 White Blood Count 42.4 x10^3/uL (4.0-11.0) *H Red Blood Count 5.22 x10^6/uL (3.50-5.40) Hemoglobin 11.0 g/dL (12.0-15.5) L Hematocrit 35.8 % (36.0-47.0) L Mean Corpuscular Volume 69 fL (79-100) L Mean Corpuscular Hemoglobin 21 pg (25-35) L Mean Corpuscular Hemoglobin Concent 31 g/dL (31-37) Red Cell Distribution Width 18.7 % (11.5-14.5) H Platelet Count 606 x10^3/uL (140-400) H Neutrophils (%) (Auto) 92 % (31-73) H Lymphocytes (%) (Auto) 3 % (24-48) L Monocytes (%) (Auto) 3 % (0-9) Eosinophils (%) (Auto) 1 % (0-3) Basophils (%) (Auto) 1 % (0-3) Neutrophils # (Auto) 39.2 x10^3uL (1.8-7.7) H Lymphocytes # (Auto) 1.3 x10^3/uL (1.0-4.8) Monocytes # (Auto) 1.4 x10^3/uL (0.0-1.1) H Eosinophils # (Auto) 0.4 x10^3/uL (0.0-0.7) Basophils # (Auto) 0.2 x10^3/uL (0.0-0.2) Segmented Neutrophils % 72 % (35-66) H Band Neutrophils % 18 % (0-9) H Lymphocytes % 4 % (24-48) L Monocytes % 5 % (0-10) Basophils % 1 % (0-3) Platelet Estimate Increased (ADEQUATE) Large Platelets Occ Giant Platelets Occ Polychromasia Slight Hypochromasia Slight Anisocytosis Slight Microcytosis Mod Urine Collection Type Unknown Urine Color Yellow Urine Clarity Cloudy Urine pH 8.5 Urine Specific Salley 1.010 Urine Protein 100 mg/dL (NEG-TRACE) Urine Glucose (UA) Negative mg/dL (NEG) Urine Ketones (Stick) Negative mg/dL (NEG) Urine Blood Moderate (NEG) Urine Nitrite Positive (NEG) Urine Bilirubin Negative (NEG) Urine Urobilinogen Dipstick 0.2 mg/dL (0.2 mg/dL) Urine Leukocyte Esterase Large (NEG) Urine RBC 6-10 /HPF (0-2) Urine WBC >40 /HPF (0-4) Urine Squamous Epithelial Cells Few /LPF Urine Bacteria Moderate /HPF (0-FEW) O2 Saturation 96 % (92-99) Arterial Blood pH 7.37 (7.35-7.45) Arterial Blood pCO2 at Patient Temp 33 mmHg (35-46) L Arterial Blood pO2 at Patient Temp 88 mmHg (75-108) Arterial Blood HCO3 19 mmol/L (21-28) L Arterial Blood Base Excess -6 mmol/L (-3-3) L Oxyhemoglobin 95.1 % Methemoglobin 0.4 % (0.0-1.9) Carbon Monoxide, Quantitative 0.3 % (0.0-1.9) FiO2 32 Sodium Level 134 mmol/L (136-145) L Potassium Level 5.3 mmol/L (3.5-5.1) H Chloride Level 102 mmol/L (98-107) Carbon Dioxide Level 22 mmol/L (21-32) Anion Gap 10 (6-14) Blood Urea Nitrogen 25 mg/dL (7-20) H Creatinine 1.6 mg/dL (0.6-1.0) H Estimated GFR (Cockcroft-Gault) 34.9 BUN/Creatinine Ratio 16 (6-20) Glucose Level 135 mg/dL (70-99) H Lactic Acid Level 2.5 mmol/L (0.4-2.0) H Calcium Level 8.9 mg/dL (8.5-10.1) Magnesium Level 1.9 mg/dL (1.8-2.4) Total Bilirubin 0.6 mg/dL (0.2-1.0) Aspartate Amino Transferase (AST) 12 U/L (15-37) L Alanine Aminotransferase (ALT) < 6 U/L (14-59) L Alkaline Phosphatase 66 U/L (46-116) Troponin I Quantitative < 0.017 ng/mL (0.000-0.055) Total Protein 5.9 g/dL (6.4-8.2) L Albumin 1.7 g/dL (3.4-5.0) L Albumin/Globulin Ratio 0.4 (1.0-1.7) L Laboratory Tests 03/04/19 10:40 Laboratory Tests 03/04/19 11:40 EKG EKG EKG obtained 03/04/19 [address] Lieberman Sinus tachycardia Rate 110 No STEMI Radiology/Procedures Radiology/Procedures PROCEDURE: CHEST AP ONLY CHEST AP ONLY History: Fever, low oxygen saturation Comparison: 01/02/2019 Findings: 2 supine AP portable views of the chest are submitted. There is a greater degree of elevation of the right hemidiaphragm on this exam, also some opacity of the right hilar region more apparent on this exam. There is relative volume loss of the right hemithorax now present. There is no left pleural fluid or infiltrate. Impression: 1. There is volume loss of the right hemithorax as well as fullness of the right hilar region and elevation of the right hemidiaphragm, constellation of findings concerning for component of right lower lobe collapse. Electronically signed by: Brayan Pickens MD (03/04/2019 11:32 AM) [facility] DICTATED and SIGNED BY: BRAYAN PICKENS MD DATE: 03/04/19 1132 Course & Med Decision Making Course & Med Decision Making Pertinent Labs and Imaging studies reviewed. (See chart for details) On arrival patient is nonverbal and not responding to voice or painful stimuli. Blood cultures were obtained and patient was started on sepsis fluid bolus along with IV Zosyn. Patient had Shafer catheter and on arrival with sediment throughout to been. RN changed Shafer catheter and UA specimen was obtained from new catheter drainage bag. Patient was on O2 via nasal cannula at 3 L and oxygenation was 96% blood pressure 112/75 heart rate 138 respirations 14 and shallow. 1135: Discussed pt's case with Dr. Lieberman who viewed pt's chest xray with concerns for aspiration pneumonia on rt. Pt had been started on IV Zosyn will add IV Vancomycin and Levaquin. Spoke with Dr. Frankel, pt's PCP and discussed pt's case and admit plan. Will obtain ABGs and admit pt to ICU for further monitoring/care. Pt had WBCs of 42.4 with 18 bands lactic acid 2.5 EKG with no acute ST elevation/STEMI and troponin <0.017. 1146: Pt' HR improved after IV flds to 110. Pt appears more alert although still not answering questions. Facial grimacing and groans as nurses are continuing her care. UA showing moderate blood +nitrates and lg leuks; WBCs >40. Per Dr. Lieberman ABG results ok for pt to remain on O2 via NC at 3L. Dragon Disclaimer Dragon Disclaimer This electronic medical record was generated, in whole or in part, using a voice recognition dictation system. Departure Departure Impression: Primary Impression: Sepsis Additional Impressions: Pneumonia Decreased level of consciousness Disposition: 09 ADMITTED INPATIENT Admitting Physician: Faina Frankel Condition: GUARDED Referrals: VENTURA BRYAN MD (PCP) Problem Qualifiers BOZENA SAAB APRN Mar 04, 2019 10:49
[2019-03-04 11:05] LABS: BASO # 0.2 x10^3/uL (0.0-0.2); BASO % 1 % (0-3); EOS # 0.4 x10^3/uL (0.0-0.7); EOS % 1 % (0-3); HEMATOCRIT 35.8 % (36.0-47.0); LYMPH # 1.3 x10^3/uL (1.0-4.8); LYMPH % 3 % (24-48); MEAN CORPUSCULAR HEMOGLOBIN 21 pg (25-35); MEAN CORPUSCULAR HGB CONC 31 g/dL (31-37); MEAN CORPUSCULAR VOLUME 69 fL (79-100); MONO # 1.4 x10^3/uL (0.0-1.1); MONO % 3 % (0-9); NEUT # 39.2 x10^3uL (1.8-7.7); NEUT % 92 % (31-73); PLATELET COUNT 606 x10^3/uL (140-400); RED BLOOD COUNT 5.22 x10^6/uL (3.50-5.40); RED CELL DISTRIBUTION WIDTH 18.7 % (11.5-14.5)
[2019-03-04 11:11] LABS: WHITE BLOOD COUNT 42.4 x10^3/uL (4.0-11.0)
--- NOTE | 2019-03-04 11:35 | RAD ---
CHEST AP ONLY History: Fever, low oxygen saturation Comparison: 01/02/2019 Findings: 2 supine AP portable views of the chest are submitted. There is a greater degree of elevation of the right hemidiaphragm on this exam, also some opacity of the right hilar region more apparent on this exam. There is relative volume loss of the right hemithorax now present. There is no left pleural fluid or infiltrate. Impression: 1. There is volume loss of the right hemithorax as well as fullness of the right hilar region and elevation of the right hemidiaphragm, constellation of findings concerning for component of right lower lobe collapse. Electronically signed by: Marcelino Sahu MD (03/04/2019 11:32 AM) [facility]
[2019-03-04 11:38] LABS: BILIRUBIN,URINE NEGATIVE (NEG); CLARITY,URINE CLOUDY; COLOR,URINE YELLOW; NITRITE,URINE POSITIVE (NEG); PH,URINE 8.5; PROTEIN,URINE 100 mg/dL (NEG-TRACE); UROBILINOGEN,URINE 0.2 mg/dL (0.2 mg/dL)
[2019-03-04] MEDS ORDERED: VANCOMYCIN 1.5 GM in IV NORMAL SALINE 500ML BAG 500 ML IV ONE (11:45)
[2019-03-04] MEDS ORDERED: VANCOMYCIN PER PHARMACY MC ONE (11:45)
[2019-03-04] MEDS ORDERED: levOFLOXacin PER PHARMACY. MC ONE (11:45)
[2019-03-04 11:52] LABS: SQUAMOUS EPITHELIAL CELL,UR FEW /LPF
[2019-03-04 11:53] LABS: WBC,URINE >40 /HPF (0-4)
[2019-03-04 11:54] LABS: BACTERIA,URINE MODERATE /HPF (0-FEW)
[2019-03-04 12:09] LABS: BASE EXCESS COOX -6 mmol/L (-3-3); HCO3 COOX 19 mmol/L (21-28); METHEMOGLOBIN 0.4 % (0.0-1.9); OXYHEMOGLOBIN 95.1 %; PCO2 COOX 33 mmHg (35-46); PO2 COOX 88 mmHg (75-108); SAT O2 COOX 96 % (92-99)
[2019-03-04 12:23] LABS: ANION GAP 10 (6-14); BLOOD UREA NITROGEN 25 mg/dL (7-20); BUN/CREATININE RATIO 16 (6-20); CALCIUM 8.9 mg/dL (8.5-10.1); CARBON DIOXIDE 22 mmol/L (21-32); CHLORIDE 102 mmol/L (98-107); CREATININE 1.6 mg/dL (0.6-1.0); GFR 34.9; GLUCOSE 135 mg/dL (70-99); POTASSIUM 5.3 mmol/L (3.5-5.1); SODIUM 134 mmol/L (136-145)
[2019-03-04 12:29] LABS: ALBUMIN 1.7 g/dL (3.4-5.0); ALBUMIN/GLOBULIN RATIO 0.4 (1.0-1.7); ALK PHOS 66 U/L (46-116); AST (SGOT) 12 U/L (15-37); MAGNESIUM 1.9 mg/dL (1.8-2.4); TOTAL BILIRUBIN 0.6 mg/dL (0.2-1.0); TOTAL PROTEIN 5.9 g/dL (6.4-8.2)
[2019-03-04 12:30] LABS: ALT (SGPT) < 6 U/L (14-59)
[2019-03-04 12:33] LABS: % BANDS 18 % (0-9); % BASOS 1 % (0-3); % LYMPHS 4 % (24-48); % MONOS 5 % (0-10); % SEGS 72 % (35-66); ANISOCYTOSIS SLIGHT; HYPOCHROMIA SLIGHT; MICROCYTOSIS MOD; PLT ESTIMATE INCREASED (ADEQUATE); POLYCHROMASIA SLIGHT
--- NOTE | 2019-03-04 12:50 | NUR ---
Pharmacy Vancomycin Dosing Note S:Consulted to monitor and dose vancomycin started 03/04/19. O:LENNY EVERETT is a 43 year old F with Sepsis HCAP . Height: 5 feet, 4 inches Weight: 61.792325 kg [place] Body Weight: 54.70 Adjusted Body Weight: 57.22 Dosing Weight: Actual Other Antibiotics: LEVAQUIN LABS: Last BUN: Last Creatinine: 1.6 Creatinine Clearance: 40 mL/min Last WBC: 42.4 Last Procalcitonin: Tmax (past 24 hours): 99.9 Microbiology: I/O: Drug Levels: Last level: on at Last dose given 03/04/19 at 1220 Vancomycin Dosing: Loading Dose: 1500 mg x1 Dosing Weight: Actual Target Trough: 10-20 A: Based on: WEIGHT AND RENAL FUNCTION, VANCOMYCIN 1.5GM IVBOLUSX1, THEN P: 1. Begin Vancomycin 1000 mg IV q24h TOMORROW 2. Follow up Trough level on 03/06/19 at 1130 3. Pharmacy will continue to monitor, follow and adjust therapy as needed. MIKAYLA LAUREANO Wei, 03/04/19 1258
[2019-03-04] MEDS ORDERED: ALPR0.5T6 PO (14:03)
[2019-03-04] MEDS ORDERED: MENT118G TP (14:03)
[2019-03-04 15:11] LABS: HEMATOCRIT 28.9 % (36.0-47.0); HEMOGLOBIN 8.6 g/dL (12.0-15.5); RED BLOOD COUNT 4.18 x10^6/uL (3.50-5.40); WHITE BLOOD COUNT 28.1 x10^3/uL (4.0-11.0)
[2019-03-04 15:27] LABS: ALBUMIN 1.5 g/dL (3.4-5.0); ALBUMIN/GLOBULIN RATIO 0.4 (1.0-1.7); ALK PHOS 54 U/L (46-116); ALT (SGPT) < 6 U/L (14-59); ANION GAP 10 (6-14); AST (SGOT) 10 U/L (15-37); BLOOD UREA NITROGEN 21 mg/dL (7-20); BUN/CREATININE RATIO 19 (6-20); CARBON DIOXIDE 23 mmol/L (21-32); CHLORIDE 105 mmol/L (98-107); CREATININE 1.1 mg/dL (0.6-1.0); GFR 53.7; GLUCOSE 151 mg/dL (70-99); POTASSIUM 4.2 mmol/L (3.5-5.1); SODIUM 138 mmol/L (136-145); TOTAL BILIRUBIN 0.3 mg/dL (0.2-1.0); TOTAL PROTEIN 5.3 g/dL (6.4-8.2)
[2019-03-04] MEDS: NOREPINEPHRIN 8MG/250ML PREMIX 250 ML IV PRN (15:28)
[2019-03-04] MEDS: IV NORMAL SALINE 1000ML BAG 1,000 ML IV SCH ×2 (15:37→22:10)
--- NOTE | 2019-03-04 16:26 | NUR ---
Called son Milagros to let him know where his mother is and what room number. No mention by son that he would come see her. Will continue to monitor patient.
--- NOTE | 2019-03-04 18:29 | HP ---
ADMIT DATE: 03/04/2019 HISTORY OF PRESENT ILLNESS: The patient is a 43-year-old female patient, resident at [facility] in [place], who was noted by nursing staff to be febrile and encephalopathic. She apparently was started on oral doxycycline last night for stage 4 coccygeal wound by the wound care team and nursing staff states the patient's complaint of chest pain and had nonproductive cough and apparently has just finished IV cefepime for urinary tract infection. The patient was transferred to the Emergency Room and was found to be encephalopathic. She just moans and groans, but does not verbalize any complaints. Her lab work showed that she has white cell count was 42,400 and her chemistry showed her BUN and creatinine has risen. Her lactic acid was high at 2.5. She has received at least 2 liters of fluid in the Emergency Room, was started on IV vancomycin and levofloxacin and was admitted to the ICU with sepsis and hypotension, to continue IV antibiotic and we consulted the Infectious Disease to assist with her antibiotic management. PAST MEDICAL HISTORY: Significant for progressive multiple sclerosis with functional paraplegia. She has factor V Leiden mutation for which she is on Xarelto and has factor V Leiden positive in her family, her daughter and her father; however, the patient herself has no history of DVT or PE. She is also known to have chronic obstructive pulmonary disease, severe malnutrition, stage 3 sacral decubitus ulcer, recurrent urinary tract infection. She in fact finished treatment for UTI, only about a few days ago with cefepime and did discontinue her PICC line. PAST SURGICAL HISTORY: Significant for wound debridement of her coccyx. ALLERGIES: She has no known drug allergies. MEDICATIONS: She is currently on following medications: She is on loratadine 10 mg once a day, nystatin swish and swallow 5 mL 3 times a day, ipratropium bromide/albuterol sulfate for DuoNeb 0.5/2.5 mg 3 mL by nebulizer t.i.d., dantrolene sodium 50 mg 3 times a day, baclofen 20 mg 4 times a day, nicotine patch 14 mg topically daily, ferrous sulfate 325 mg daily, apixaban 5 mg twice a day, oxycodone 7.5 mg every 4 hours, acetaminophen 650 mg every 4 hours, duloxetine 30 mg daily, alprazolam 0.5 mg at bedtime, alprazolam 0.5 every 4 hours, potassium chloride 40 mEq daily, Mucinex 600 mg twice a day, Lactobacillus Acidophilus 2 capsules twice a day, polyethylene glycol 17 grams daily, Senna-S 1 tablet twice a day, ondansetron 4 mg every 4 hours, famotidine 20 mg twice a day, Biofreeze applied topically 4 times a day, oxybutynin chloride 5 mg 3 times a day, cholecalciferol for vitamin D3 1000 International Unit once a day. FAMILY HISTORY: Positive for factor V Leiden in her daughter and her father. SOCIAL HISTORY: She is a resident at [facility] in [place]. She is a smoker, although she has not been smoking recently. She does not drink alcohol or use recreational drugs. REVIEW OF SYSTEMS: As per history of present illness. PHYSICAL EXAMINATION: GENERAL: On arrival to the Emergency Room, she was nonverbal, moaning and groaning, pale, cachectic, but no jaundice, cyanosis, or thyromegaly. No jugular venous distention or limb edema. VITAL SIGNS: Her heart rate was 145, blood pressure 112/75, temperature was 99.7, respiratory rate 24, and oxygen saturation was 95% on 3 liters of oxygen. HEAD, EYES, EARS, NOSE AND THROAT: Showed normocephalic, atraumatic. NECK: Supple. HEART: Showed normal first and second sounds. No gallop or murmur. CHEST: Shows central trachea, equal bilateral chest expansion, air entry, vesicular breath sounds. No crepitation or rhonchi. ABDOMEN: Distended, soft, nontender. No guarding or rigidity. No organomegaly. All hernial orifices intact. Bowel sounds normal. NEUROLOGIC: She is encephalopathic. She moans and groans, but does not really verbalize any answer. She has progressive multiple sclerosis. She is mostly bedbound. She has large sacral stage 4 decubitus ulcer. LABORATORY DATA: While in the Emergency Room, she had lab work done showed a white cell count 42,400, hemoglobin 11, hematocrit 36, MCV 69, and platelet count of 606,000 with normal manual differential. Her serum sodium 134, potassium 5.3, chloride 102, bicarbonate 22, anion gap of 10, BUN 25, creatinine 1.6, estimated GFR was 35 mL per minute. Her glucose 135, calcium was 8.9, magnesium was 1.9. Total bilirubin, AST, ALT, alkaline phosphatase were normal. Her total protein was 5.9, albumin was 1.7. Her lactic acid was 2.5. Her blood gases showed a pH of 7.37, pCO2 33, pO2 88, bicarbonate 19 and oxygen saturation was 96% on FiO2 of 32%. Her chest x-ray showed that there is volume loss of the right hemothorax as well as fullness with right hilar region and swelling of the right hemidiaphragm . Consultation findings concerning for component of right lower lobe collapse. PLAN: To continue the IV fluid, continue the IV antibiotic. Follow her labs closely and consulted the Infectious Disease to assist with her management. YOLI MEJIA MD DR: JUJU/ronit JOB#: [id number] / [id number]
[2019-03-05] VITALS (24 sets, daily range): BP systolic 71–109; BP diastolic 44–65
[2019-03-05] MEDS: IV NORMAL SALINE 1000ML BAG 1,000 ML IV SCH ×3 (04:45→18:46)
[2019-03-05] MEDS: NOREPINEPHRIN 8MG/250ML PREMIX 250 ML IV PRN (04:45)
[2019-03-05 05:29] LABS: BASO # 0.1 x10^3/uL (0.0-0.2); BASO % 0 % (0-3); EOS % 4 % (0-3); HEMATOCRIT 28.7 % (36.0-47.0); HEMOGLOBIN 9.1 g/dL (12.0-15.5); LYMPH # 1.5 x10^3/uL (1.0-4.8); LYMPH % 6 % (24-48); MEAN CORPUSCULAR HEMOGLOBIN 22 pg (25-35); MEAN CORPUSCULAR HGB CONC 32 g/dL (31-37); MEAN CORPUSCULAR VOLUME 69 fL (79-100); MONO # 0.9 x10^3/uL (0.0-1.1); MONO % 4 % (0-9); NEUT # 20.6 x10^3uL (1.8-7.7); NEUT % 85 % (31-73); PLATELET COUNT 627 x10^3/uL (140-400); RED BLOOD COUNT 4.17 x10^6/uL (3.50-5.40); RED CELL DISTRIBUTION WIDTH 18.6 % (11.5-14.5); WHITE BLOOD COUNT 24.1 x10^3/uL (4.0-11.0)
[2019-03-05 05:57] LABS: ALBUMIN 1.7 g/dL (3.4-5.0); ALBUMIN/GLOBULIN RATIO 0.4 (1.0-1.7); ALK PHOS 57 U/L (46-116); ANION GAP 14 (6-14); AST (SGOT) 9 U/L (15-37); BLOOD UREA NITROGEN 13 mg/dL (7-20); BUN/CREATININE RATIO 26 (6-20); CALCIUM 8.7 mg/dL (8.5-10.1); CARBON DIOXIDE 21 mmol/L (21-32); CHLORIDE 109 mmol/L (98-107); CREATININE 0.5 mg/dL (0.6-1.0); GFR 133.4; GLUCOSE 115 mg/dL (70-99); POTASSIUM 3.2 mmol/L (3.5-5.1); SODIUM 144 mmol/L (136-145); TOTAL BILIRUBIN 0.2 mg/dL (0.2-1.0); TOTAL PROTEIN 5.8 g/dL (6.4-8.2)
[2019-03-05 06:03] LABS: ALT (SGPT) < 6 U/L (14-59)
[2019-03-05 07:19] LABS: % BANDS 1 % (0-9); % EOS 3 % (0-5); % LYMPHS 2 % (24-48); % MONOS 2 % (0-10); % SEGS 92 % (35-66)
[2019-03-05 07:20] LABS: PLT ESTIMATE INCREASED (ADEQUATE)
[2019-03-05 07:21] LABS: ANISOCYTOSIS SLIGHT; HYPOCHROMIA MOD; MICROCYTOSIS SLIGHT; OVALOCYTES PRESENT; POIKILOCYTOSIS PRESENT; SCHISTOCYTES OCC
--- NOTE | 2019-03-05 08:40 | EKG ---
[facility] [address] [place] [address] Test Date: 2019-03-04 Test Time: 11:38:01 Pat Name: LENNY EVERETT Department: Room: 114 1 Gender: F Vessel Master: : [id number] Requested By: BOZENA SAAB Order Number: [id number] Reading MD: Mike Perez Measurements Intervals [place] Rate: 110 P: 62 IN: 124 QRS: -42 QRSD: 70 T: 83 QT: 336 QTc: 460 Interpretive Statements SINUS TACHYCARDIA LOW LIMB LEAD VOLTAGE NONSPECIFIC ST-T WAVE CHANGES. Electronically Signed On 03-08-2019 13:09:06 CDT by Mike Perez
[2019-03-05] MEDS ORDERED: VANCOMYCIN 1 GM in IV NORMAL SALINE 250ML 250 ML IV SCH (12:00)
[2019-03-05] MEDS ORDERED: SENNOSIDES/DOCUSATE 8.6/50MG TABLET. PO PRN (12:00)
[2019-03-05] MEDS ORDERED: ONDANSETRON ODT 4 MG TAB.RAPDIS. PO PRN (12:00)
[2019-03-05] MEDS ORDERED: ALPRAZolam 0.5 MG TABLET PO PRN (12:00)
[2019-03-05] MEDS: NICOTINE 14MG PATCH. TD SCH (13:00)
[2019-03-05] MEDS: APIXABAN 5 MG TABLET. PO SCH ×2 (13:06→21:35)
[2019-03-05] MEDS: CHOLECALCIFEROL (VITAMIN D3) 1,000 UNIT TABLET PO SCH (13:06)
[2019-03-05] MEDS: BACLOFEN 10 MG TABLET. PO SCH ×3 (13:07→21:37)
[2019-03-05] MEDS: DULoxetine HCL 30 MG CAPSULE.DR PO SCH (13:07)
[2019-03-05] MEDS: MULTIVITAMIN with MINERAL TABLET. PO SCH (13:07)
[2019-03-05] MEDS: OXYBUTYNIN CHLORIDE 5 MG TABLET PO SCH ×2 (13:07→21:35)
[2019-03-05] MEDS: LACTOBACILLUS RHAMNOSUS GG 1 CAPSULE. PO SCH ×2 (13:07→21:35)
[2019-03-05] MEDS: ACETAMINOPHEN 325 MG TABLET. PO PRN ×2 (13:07→19:48)
[2019-03-05] MEDS: FAMOTIDINE 20 MG TABLET. PO SCH ×2 (13:07→21:35)
[2019-03-05] MEDS: POTASSIUM CHLORIDE 20 MEQ TABLET.ER. PO SCH (13:07)
[2019-03-05] MEDS: NYSTATIN 100,000 UNITS/ML 5 ML ORAL.SUSP. SWSW SCH ×2 (13:08→21:38)
[2019-03-05] MEDS: CETIRIZINE HCL 10 MG TABLET. PO SCH (13:08)
[2019-03-05] MEDS: FERROUS SULFATE 325 MG TABLET. PO SCH (13:08)
--- NOTE | 2019-03-05 13:40 | PDOC ---
Infectious Disease Note Vital Sign Vital Signs Vital Signs Date Time Temp Pulse Resp B/P (MAP) Pulse Ox O2 Delivery O2 Flow Rate FiO2 03/05/19 12:00 98.2 125 15 79/53 (62) 95 Nasal Cannula 3.0 98.2 Labs Lab Laboratory Tests Test 03/04/19 14:55 03/05/19 04:44 White Blood Count 28.1 x10^3/uL (4.0-11.0) 24.1 x10^3/uL (4.0-11.0) Red Blood Count 4.18 x10^6/uL (3.50-5.40) 4.17 x10^6/uL (3.50-5.40) Hemoglobin 8.6 g/dL (12.0-15.5) 9.1 g/dL (12.0-15.5) Hematocrit 28.9 % (36.0-47.0) 28.7 % (36.0-47.0) Mean Corpuscular Volume 69 fL (79-100) 69 fL (79-100) Mean Corpuscular Hemoglobin 21 pg (25-35) 22 pg (25-35) Mean Corpuscular Hemoglobin Concent 30 g/dL (31-37) 32 g/dL (31-37) Red Cell Distribution Width 18.0 % (11.5-14.5) 18.6 % (11.5-14.5) Platelet Count 433 x10^3/uL (140-400) 627 x10^3/uL (140-400) Sodium Level 138 mmol/L (136-145) 144 mmol/L (136-145) Potassium Level 4.2 mmol/L (3.5-5.1) 3.2 mmol/L (3.5-5.1) Chloride Level 105 mmol/L (98-107) 109 mmol/L (98-107) Carbon Dioxide Level 23 mmol/L (21-32) 21 mmol/L (21-32) Anion Gap 10 (6-14) 14 (6-14) Blood Urea Nitrogen 21 mg/dL (7-20) 13 mg/dL (7-20) Creatinine 1.1 mg/dL (0.6-1.0) 0.5 mg/dL (0.6-1.0) Estimated GFR (Cockcroft-Gault) 53.7 133.4 BUN/Creatinine Ratio 19 (6-20) 26 (6-20) Glucose Level 151 mg/dL (70-99) 115 mg/dL (70-99) Lactic Acid Level 1.7 mmol/L (0.4-2.0) Calcium Level 8.0 mg/dL (8.5-10.1) 8.7 mg/dL (8.5-10.1) Total Bilirubin 0.3 mg/dL (0.2-1.0) 0.2 mg/dL (0.2-1.0) Aspartate Amino Transf (AST/SGOT) 10 U/L (15-37) 9 U/L (15-37) Alanine Aminotransferase (ALT/SGPT) < 6 U/L (14-59) < 6 U/L (14-59) Alkaline Phosphatase 54 U/L (46-116) 57 U/L (46-116) Total Protein 5.3 g/dL (6.4-8.2) 5.8 g/dL (6.4-8.2) Albumin 1.5 g/dL (3.4-5.0) 1.7 g/dL (3.4-5.0) Albumin/Globulin Ratio 0.4 (1.0-1.7) 0.4 (1.0-1.7) Neutrophils (%) (Auto) 85 % (31-73) Lymphocytes (%) (Auto) 6 % (24-48) Monocytes (%) (Auto) 4 % (0-9) Eosinophils (%) (Auto) 4 % (0-3) Basophils (%) (Auto) 0 % (0-3) Neutrophils # (Auto) 20.6 x10^3uL (1.8-7.7) Lymphocytes # (Auto) 1.5 x10^3/uL (1.0-4.8) Monocytes # (Auto) 0.9 x10^3/uL (0.0-1.1) Eosinophils # (Auto) 1.0 x10^3/uL (0.0-0.7) Basophils # (Auto) 0.1 x10^3/uL (0.0-0.2) Segmented Neutrophils % 92 % (35-66) Band Neutrophils % 1 % (0-9) Lymphocytes % 2 % (24-48) Monocytes % 2 % (0-10) Eosinophils % 3 % (0-5) Platelet Estimate Increased (ADEQUATE) Large Platelets Present Giant Platelets Few Hypochromasia Mod Poikilocytosis Present Anisocytosis Slight Microcytosis Slight Ovalocytes Present Schistocytes Occ Micro Microbiology 03/04/19 Blood Culture - Preliminary, Resulted NO GROWTH AFTER 1 DAY Objective Assessment Sepsis with hypotensive, on vasopressor support Lactic acidosis, Pyuria. 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 diff colitis 12/2018 Progressive MS COPD Severe malnutrition Factor V Leiden h/o MRSA, VRE and MDR infections Plan Plan of Care Continue vancomycin Switch Levaquin to Zosyn Add po vanc prophylactically w/ recent history of C. diff f/u cultures Monitor labs/renal function closely wound care team consulted Offload D/w nursing Thank you [id number] Attending Co-Sign The patient was seen and interviewed as well as examined at the bedside. The chart was reviewed. The case was discussed. Agree with the plan of care. AMY REESE APRN Mar 05, 2019 13:40 ROSEMARY THOMAS MD Mar 05, 2019 14:55
[2019-03-05] MEDS: METHYL SALICYLATE/MENTHOL TOPICAL OINTMENT 29GM TUBE. TP SCH ×3 (13:55→21:38)
[2019-03-05] MEDS: IPRATRPIUM/ALBUTEROL 0.5/2.5MG 3 ML NEBU. NEB SCH ×2 (15:09→19:58)
[2019-03-05] MEDS: PIPERACILLIN/TAZOBACTAM 3.375 GM in IV NORMAL SALINE 50ML 50 ML IV SCH (16:21)
[2019-03-05] MEDS: oxyCODONE IR 5 MG TABLET PO PRN (16:22)
--- NOTE | 2019-03-05 16:52 | CONS ---
DATE OF CONSULTATION: 03/05/2019 REFERRING PHYSICIAN: Faina Frankel MD REASON FOR CONSULTATION: Sepsis. HISTORY OF PRESENT ILLNESS: This patient is a 43-year-old female with progressive multiple sclerosis, who is bedbound and dependent of total care who [facility] with fever of 101.4 and encephalopathy. She had been complaining of nonproductive cough and chest pain. Initial white blood cell count was 42,400 with segs 72%, bands 18%. She was hypotensive requiring vasopressor support and hypoxic requiring supplemental oxygen. A chest x-ray was concerning for a right lower lobe collapse. A urinalysis showed wbc's greater than 40, large leukocyte esterase, positive nitrite with few squamous epithelial cells and moderate bacteria. Urine culture is pending. Blood cultures are negative to date. She is currently on vancomycin and levofloxacin. The patient says that she is feeling a little bit better. She remains on vasopressor support of 3 mcg of Levophed. She is now saturating above 95% on room air. She has not had any fevers reported within the last 24 hours. Her stools are formed. She has a chronic stage 4 sacrococcygeal wound for which she was recently started on doxycycline [facility] the [facility]. She also was recently treated for urinary tract infection with cefepime. Denies nausea or vomiting. PAST MEDICAL HISTORY: History of MRSA, VRE, multidrug-resistant infections. History of Clostridium difficile colitis in December 2018. Progressive multiple sclerosis. COPD, history of anorexia and bulimia, depression, anxiety, chronic sacrococcygeal stage 4 pressure wound. Factor V Leiden mutation. History of DVT/PE. PAST SURGICAL HISTORY: Wound debridement of coccyx. SOCIAL HISTORY: The patient is a [facility] resident. She is a smoker. FAMILY HISTORY: Positive for factor V Leiden. ALLERGIES: No known drug allergies. MEDICATIONS: Vancomycin, levofloxacin, Levophed. Other medications are available and have been reviewed on the MAR. REVIEW OF SYSTEMS: Per HPI, otherwise all other review of systems is negative. PHYSICAL EXAMINATION: VITAL SIGNS: Temperature is 98.2, blood pressure 79/53, heart rate 125, respiratory rate 15, pulse oximetry is 95% on room air. GENERAL: The patient is awake, weak appearing. HEENT: Pupils equally round. Normal conjunctivae. Oral cavity: Pharynx pink and dry. LUNGS: Clear to auscultation. HEART: S1, S2. ABDOMEN: Soft, nontender with bowel sounds present. GENITOURINARY: Indwelling Shafer in place (03/04/2019). EXTREMITIES: No gross edema or cyanosis. Heel protectors in place. SKIN: Warm without rash. She has a fairly large sacrococcygeal stage 4 pressure wound with bone probed. NEUROLOGIC: Awake, responding appropriately. Contractures. LABORATORY DATA: Today's WBC 24.1 from 42.4, hemoglobin 9.1, platelets 627,000. Sodium 144, potassium 3.2, creatinine 0.5 from 1.0, BUN 13, glucose 115, lactic acid 1.7 from 2.5 on admission, total bilirubin 0.2, AST 9, ALT less than 6, albumin 1.7. Urinalysis per HPI. Urine culture pending. Blood cultures are negative to date. Chest x-ray per HPI. IMPRESSION: 1. Sepsis with hypotension, requiring vasopressor support. 2. Lactic acidosis. 3. Pyuria. She was recently treated for urinary tract infection with cefepime. 4. Leukocytosis, improving. 5. 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 6. History of Clostridium difficile colitis in December 2018. 7. Progressive multiple sclerosis. 8. Chronic obstructive pulmonary disease. 9. Severe malnutrition. 10. Factor V Leiden. 11. History of methicillin-resistant Staphylococcus aureus, vancomycin resistant Enterococcus and multidrug-resistant organisms type infection. PLAN: Continue the vancomycin. We will switch levofloxacin to Zosyn and add p.o. vancomycin for prophylaxis given a recent history of Clostridium difficile. Further antibiotic modifications pending culture results and clinical response. Continue to monitor laboratory values and renal function closely. Wound care team has been consulted. Offload. Thank you, Dr. Frankel for asking us to participate in this patient's care. Should you have further questions or concerns, please call. The patient seen and examined and plan of care implemented by Dr. Jeff Moura. JEFF MOURA MD DR: RICHARD/ronit JOB#: [id number] / [id number]
[2019-03-05] MEDS: ALPRAZolam 0.5 MG TABLET PO SCH (21:35)
[2019-03-05] MEDS: VANCOMYCIN 125 MG/2.5 ML ORAL SOLUTION. PO SCH (21:35)
[2019-03-05] MEDS: DANTROLENE SODIUM 25 MG CAPSULE PO SCH (21:40)
[2019-03-06] VITALS (24 sets, daily range): BP systolic 72–103; BP diastolic 43–77
[2019-03-06] MEDS: PIPERACILLIN/TAZOBACTAM 3.375 GM in IV NORMAL SALINE 50ML 50 ML IV SCH ×5 (00:11→23:30)
--- NOTE | 2019-03-06 05:20 | PN ---
DATE: 03/05/2019 SUBJECTIVE: The patient is resting slightly propped up in bed and definitely more awake, alert, was able to eat and drink, continues to be on Levophed, although it is tapering down. She is afebrile and white cell count is trending down. PHYSICAL EXAMINATION: GENERAL: When I examined her, she looked pale, cachectic, but not jaundiced or cyanosed from thyromegaly. No jugular venous distention. No limb edema. VITAL SIGNS: Her heart rate was 65, blood pressure was 106/64, temperature was 97.2, respiratory rate was 15 and oxygen saturation was 97% on room air. HEAD, EYES, EARS, NOSE AND THROAT: Showed normocephalic, atraumatic. NECK: Supple. HEART: Showed normal first and second heart sounds with no gallop, rub or murmur. CHEST: Clear to auscultation. No crepitation or rhonchi. ABDOMEN: Scaphoid, soft, nontender. Suprapubic catheter in place. NEUROLOGIC: She is definitely more awake, alert, responding appropriately. Her cranial nerves intact. She has quadriplegia with paraplegia due to progressive multiple sclerosis with neurogenic bladder requiring indwelling catheter. She has large stage 4 sacrococcygeal decubitus ulcer. Her intake over the last 24 hours was 6184, output was 1765. LABORATORY DATA: Her lab work this morning showed a white cell count down to 24,000; hemoglobin 9; hematocrit 29; MCV 69; platelet count 627,000. Her chemistry showed a serum sodium 144, potassium 3.2, chloride 109, bicarbonate 21, anion gap of 14, BUN 13, creatinine 0.5, estimated GFR was 133 mL per minute. Her glucose 115, calcium was 8.7. Total bilirubin, AST, ALT, alkaline phosphatase were normal. Total protein was 5.8, albumin was 1.7. ASSESSMENT: 1. Sepsis, source of which is not clear. The patient is known to have a tendency to have recurrent urinary tract infection. She has also had multiple episodes previously of Clostridium difficile colitis. She has also large stage 4 sacral coccygeal decubitus ulcer. The patient continues to be on intravenous vancomycin as well as levofloxacin. Other medical problems include long-standing progressive multiple sclerosis with functional paraplegia and neurogenic bladder requiring suprapubic catheter. 2. Factor V Leiden mutation for which she is on Xarelto, although the patient herself has never had any history of deep venous thrombosis or pulmonary embolism. 3. Chronic obstructive pulmonary disease. 4. Severe protein-calorie malnutrition. 5. Stage 3 sacral decubitus ulcer, previous episodes of Clostridium difficile colitis. PLAN: To continue the IV antibiotic. Continue the IV fluid. Her blood cultures are so far negative. Her encephalopathy has resolved. She is now more awake, alert, and therefore, we will resume all her medication and obviously will adjust antibiotics according to the result of the culture and sensitivity. YOLI MEJIA MD DR: JUJU/ronit JOB#: [id number] / [id number]
[2019-03-06 05:23] LABS: HEMATOCRIT 25.6 % (36.0-47.0); RED BLOOD COUNT 3.76 x10^6/uL (3.50-5.40); RED CELL DISTRIBUTION WIDTH 19.1 % (11.5-14.5); WHITE BLOOD COUNT 13.7 x10^3/uL (4.0-11.0)
[2019-03-06] MEDS: IV NORMAL SALINE 1000ML BAG 1,000 ML IV SCH (05:47)
[2019-03-06] MEDS: NOREPINEPHRIN 8MG/250ML PREMIX 250 ML IV PRN ×3 (05:48→17:39)
[2019-03-06 05:53] LABS: ALBUMIN 1.4 g/dL (3.4-5.0); ALBUMIN/GLOBULIN RATIO 0.4 (1.0-1.7); CALCIUM 7.7 mg/dL (8.5-10.1); CREATININE 0.5 mg/dL (0.6-1.0); GFR 133.4; POTASSIUM 3.1 mmol/L (3.5-5.1); TOTAL BILIRUBIN 0.2 mg/dL (0.2-1.0); TOTAL PROTEIN 4.7 g/dL (6.4-8.2)
--- NOTE | 2019-03-06 08:20 | PDOC ---
Infectious Disease Note Subjective Subjective pt is awake, says is ok ROS ROS no n/v/d/fever Vital Sign Vital Signs Vital Signs Date Time Temp Pulse Resp B/P (MAP) Pulse Ox O2 Delivery O2 Flow Rate FiO2 03/06/19 07:00 62 11 87/59 (68) 96 Nasal Cannula 3.0 03/06/19 04:00 98.7 98.7 Physical Exam PHYSICAL EXAM VITAL SIGNS: stable GENERAL: The patient is awake, weak appearing. HEENT: Pupils equally round. Normal conjunctivae. Oral cavity: Pharynx pink and dry. LUNGS: Clear to auscultation. HEART: S1, S2. ABDOMEN: Soft, nontender with bowel sounds present. GENITOURINARY: Indwelling Shafer in place (03/04/2019). EXTREMITIES: No gross edema or cyanosis. Heel protectors in place. SKIN: Warm without rash. She has a fairly large sacrococcygeal stage 4 pressure wound with bone probed. NEUROLOGIC: Awake, responding appropriately. Contractures. Labs Lab Laboratory Tests Test 03/06/19 04:40 White Blood Count 13.7 x10^3/uL (4.0-11.0) Red Blood Count 3.76 x10^6/uL (3.50-5.40) Hemoglobin 8.0 g/dL (12.0-15.5) Hematocrit 25.6 % (36.0-47.0) Mean Corpuscular Volume 68 fL (79-100) Mean Corpuscular Hemoglobin 21 pg (25-35) Mean Corpuscular Hemoglobin Concent 31 g/dL (31-37) Red Cell Distribution Width 19.1 % (11.5-14.5) Platelet Count 533 x10^3/uL (140-400) Sodium Level 145 mmol/L (136-145) Potassium Level 3.1 mmol/L (3.5-5.1) Chloride Level 111 mmol/L (98-107) Carbon Dioxide Level 21 mmol/L (21-32) Anion Gap 13 (6-14) Blood Urea Nitrogen 7 mg/dL (7-20) Creatinine 0.5 mg/dL (0.6-1.0) Estimated GFR (Cockcroft-Gault) 133.4 BUN/Creatinine Ratio 14 (6-20) Glucose Level 87 mg/dL (70-99) Calcium Level 7.7 mg/dL (8.5-10.1) Total Bilirubin 0.2 mg/dL (0.2-1.0) Aspartate Amino Transf (AST/SGOT) 9 U/L (15-37) Alanine Aminotransferase (ALT/SGPT) 6 U/L (14-59) Alkaline Phosphatase 42 U/L (46-116) Total Protein 4.7 g/dL (6.4-8.2) Albumin 1.4 g/dL (3.4-5.0) Albumin/Globulin Ratio 0.4 (1.0-1.7) Micro Microbiology 03/04/19 Blood Culture - Preliminary, Resulted NO GROWTH AFTER 1 DAY Objective Assessment 1. Sepsis with hypotension, requiring vasopressor support. 2. Lactic acidosis. 3. Pyuria. She was recently treated for urinary tract infection with cefepime. 4. Leukocytosis, improving. 5. 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 6. History of Clostridium difficile colitis in December 2018. 7. Progressive multiple sclerosis. 8. Chronic obstructive pulmonary disease. 9. Severe malnutrition. 10. Factor V Leiden. 11. History of methicillin-resistant Staphylococcus aureus, vancomycin resistant Enterococcus and multidrug-resistant organisms type infection. Plan Plan of Care Continue vancomycin and Zosyn po vanc prophylactically w/ recent history of C. diff f/u cultures Monitor labs/renal function closely wound care team consulted Offload D/w nursing ROSEMARY THOMAS MD Mar 06, 2019 08:20
[2019-03-06] MEDS: IPRATRPIUM/ALBUTEROL 0.5/2.5MG 3 ML NEBU. NEB SCH ×3 (08:29→20:58)
[2019-03-06] MEDS: POTASSIUM CHLORIDE 20 MEQ TABLET.ER. PO SCH (08:40)
[2019-03-06] MEDS: DULoxetine HCL 30 MG CAPSULE.DR PO SCH (08:40)
[2019-03-06] MEDS: LACTOBACILLUS RHAMNOSUS GG 1 CAPSULE. PO SCH ×2 (08:40→21:32)
[2019-03-06] MEDS: FAMOTIDINE 20 MG TABLET. PO SCH ×2 (08:40→21:31)
[2019-03-06] MEDS: APIXABAN 5 MG TABLET. PO SCH ×2 (08:41→21:32)
[2019-03-06] MEDS: OXYBUTYNIN CHLORIDE 5 MG TABLET PO SCH ×3 (08:41→21:32)
[2019-03-06] MEDS: MULTIVITAMIN with MINERAL TABLET. PO SCH (08:41)
[2019-03-06] MEDS: NICOTINE 14MG PATCH. TD SCH (08:42)
[2019-03-06] MEDS: DANTROLENE SODIUM 25 MG CAPSULE PO SCH ×3 (08:42→21:31)
[2019-03-06] MEDS: VANCOMYCIN 125 MG/2.5 ML ORAL SOLUTION. PO SCH ×2 (08:42→21:31)
[2019-03-06] MEDS: CETIRIZINE HCL 10 MG TABLET. PO SCH (08:42)
[2019-03-06] MEDS: CHOLECALCIFEROL (VITAMIN D3) 1,000 UNIT TABLET PO SCH (08:42)
[2019-03-06] MEDS: NYSTATIN 100,000 UNITS/ML 5 ML ORAL.SUSP. SWSW SCH ×3 (08:43→21:31)
[2019-03-06] MEDS ORDERED: POTASSIUM CL 40MEQ D5-0.45NACL 1,000 ML IV SCH (09:00)
[2019-03-06] MEDS ORDERED: POTASSIUM CHLORIDE 20 MEQ TABLET.ER. PO SCH (09:00)
[2019-03-06] MEDS ORDERED: POLYETHYLENE GLYCOL 3350 17 GM PACKET. PO PRN (09:00)
--- NOTE | 2019-03-06 09:31 | NUR ---
SW reviewed pt's medical chart and evaluated for potential dc needs. Pt is an LTC resident at [facility] in [place] and was admitted for sepsis and aspiration pneumonia. Pt will return to LTC upon dc. SW will continue to follow and be available for dc needs.
[2019-03-06] MEDS: POTASSIUM CHLORIDE 20 MEQ/15 ML ORAL LIQUID. PO SCH ×3 (10:07→13:23)
[2019-03-06] MEDS: FERROUS SULFATE 325 MG TABLET. PO SCH (10:08)
[2019-03-06] MEDS: BACLOFEN 10 MG TABLET. PO SCH ×4 (10:09→21:32)
[2019-03-06] MEDS: METHYL SALICYLATE/MENTHOL TOPICAL OINTMENT 29GM TUBE. TP SCH ×4 (10:09→21:40)
[2019-03-06] MEDS: ANTI-COAG MONITOR BY PHARMACY. MC PRN (10:45)
[2019-03-06 12:31] LABS: CALCIUM 7.8 mg/dL (8.5-10.1); CREATININE 0.5 mg/dL (0.6-1.0); GFR 133.4; POTASSIUM 5.8 mmol/L (3.5-5.1)
[2019-03-06 12:36] LABS: VANC TR 7.3 mcg/mL (10.0-20.0)
[2019-03-06] MEDS: VANCOMYCIN PER PHARMACY MC PRN (12:50)
--- NOTE | 2019-03-06 12:51 | NUR ---
Pharmacy Vancomycin Dosing Note S:Consulted to monitor and dose vancomycin started 03/04/19. O:LENNY EVERETT is a 43 year old F with Sepsis HCAP . Height: 5 feet, 4 inches Weight: 60.551614 kg [place] Body Weight: 54.70 Adjusted Body Weight: 57.22 Dosing Weight: Actual Other Antibiotics: LEVAQUIN LABS: Last BUN: 5 Last Creatinine: 0.5 Creatinine Clearance: SCR 0.5 mL/min Last WBC: 13.7 Last Procalcitonin: - Tmax (past 24 hours): 99.9 Microbiology: 03/06 BCX NGTD I/O: 4780/1500 Drug Levels: Last Trough level: 7.3 on 03/06/19 at 1150 Last dose given 03/04/19 at 1220 Vancomycin Dosing: Loading Dose: 1500 mg x1 Dosing Weight: Actual Target Trough: 10-20 A: Based on: IMPROVEMENT IN RENAL FUNCTION, LEVEL 7.3, P: 1. CHANGE DOSING TO Vancomycin 1000 mg IV q12h 2. Follow up Trough level on 03/08 0030 3. Pharmacy will continue to monitor, follow and adjust therapy as needed. RHONDA ALBA [facility], 03/06/19 [id number]
[2019-03-06] MEDS: VANCOMYCIN 1 GM in IV NORMAL SALINE 250ML 250 ML IV SCH (13:00)
--- NOTE | 2019-03-06 13:20 | NUR ---
IP: patient has +MRSA screen, requires contact precautions until 2 negative results 7 days apart.
[2019-03-06] MEDS: IV DEXTROSE 5 %-0.45 % NACL 1,000 ML IV SCH (13:34)
--- NOTE | 2019-03-06 16:07 | NUR ---
Wound care: Patient seen per wound care consult. See wound assessment. Patient has stage IV pressure ulcer to coccyx. Patient is known to us from the wound clinic and previous admissions. Patient had bowel movement, patient cleaned and michelle and drawsheet changed. Wound cleansed, assessed, and measured. Recommendations for Aquacel Ag to wound, then foam dressing, and tegaderm tape. Dressing applied and patient tolerated well. Patient repositioned in bed and turned to left side using wedge. Bilateral heels floated. Call light in reach. Bed lowered. spoke with RN regarding POC. Dressing change instructions left in room. will follow patient regarding wound care.
[2019-03-06] MEDS: oxyCODONE IR 5 MG TABLET PO PRN (16:15)
[2019-03-06] MEDS: ALPRAZolam 0.5 MG TABLET PO SCH (21:32)
[2019-03-07] VITALS (21 sets, daily range): BP systolic 75–112; BP diastolic 44–73
[2019-03-07] MEDS: VANCOMYCIN 1 GM in IV NORMAL SALINE 250ML 250 ML IV SCH ×2 (00:33→12:42)
--- NOTE | 2019-03-07 01:28 | PN ---
DATE: 03/06/2019 SUBJECTIVE: The patient is resting slightly propped up in bed, in no apparent distress. Awake, alert. On questioning her, she is feeling generally much better. She has continued to be on Levophed, IV fluid and IV antibiotic. PHYSICAL EXAMINATION: GENERAL: When I examined her, she was pale, somewhat cachectic, but not jaundiced or cyanosed from thyromegaly. No jugular venous distention. No lower limb edema. VITAL SIGNS: Her heart rate was 62, blood pressure was 87/59, temperature was 98.7, respiratory rate was 11 and oxygen saturation was 96% on 3 liters of oxygen. HEENT: Examination of the head, eyes, ears, nose and throat showed normocephalic, atraumatic. NECK: Supple. HEART: Showed normal first and second heart sounds. No gallop, rub or murmur. CHEST: Clear to auscultation. No crepitation or rhonchi. ABDOMEN: Scaphoid, soft and nontender. Suprapubic catheter in place. NEUROLOGIC: She was awake, alert, responding appropriately. All her cranial nerves intact. She moved her upper extremities to much good extent than lower extremities. She has progressive multiple sclerosis with paraplegia; neurogenic bladder, requiring suprapubic catheter. SKIN: She has large sacrococcygeal decubitus ulcer. Her intake over the last 24 hours was 6184, output was 1765. LABORATORY DATA: As of this morning, her white cell count is down to 13,700, hemoglobin 8, hematocrit 25.6, MCV 68 and platelet count 533,000. Her chemistry this morning showed serum sodium 145, potassium 3.1, chloride 111, bicarbonate 21, anion gap of 13, BUN 7, creatinine 0.5, estimated GFR was 133 mL per minute, her glucose was 87 and calcium was 7.7. Total bilirubin, AST, ALT and alkaline phosphatase were normal. Total protein was 4.7. Albumin was 1.4. Her nasal screen for MRSA by PCR was positive. So far, her blood culture is negative. ASSESSMENT: 1. Sepsis, source is not clear. The patient is known to have a tendency to have recurrent urinary tract infections. She has had multiple episodes of Clostridium difficile colitis. She also has large stage 4 sacrococcygeal decubitus ulcer. The patient continues to be on IV vancomycin and Zosyn and oral vancomycin was added by the Infectious Disease specialist. 2. The patient has multiple other medical problems including long-standing progressive multiple sclerosis, functional paraplegia and neurogenic bladder, requiring suprapubic catheter. 3. Factor V Leiden mutation, for which she is on Xarelto, although the patient herself has never had any history of deep vein thrombosis and pulmonary embolism. 4. Chronic obstructive pulmonary disease. 5. Severe protein-calorie malnutrition. 6. Stage 3 sacral decubitus ulcer. 7. Previous episodes of Clostridium difficile colitis. 8. Hypokalemia. PLAN: The plan is to continue the IV antibiotic. Continue IV fluid. Her blood cultures so far are negative. Her encephalopathy has resolved. She is more awake, alert. All her oral medications were resumed. I will replenish her potassium and await the result of the stool for C. diff and urine for culture and sensitivity. YOLI MEJIA MD DR: JUJU/ronit JOB#: [id number] / [id number]
[2019-03-07] MEDS: IV DEXTROSE 5 %-0.45 % NACL 1,000 ML IV SCH ×2 (02:07→09:30)
[2019-03-07 05:20] LABS: CALCIUM 7.7 mg/dL (8.5-10.1); CREATININE 0.5 mg/dL (0.6-1.0); GFR 133.4; POTASSIUM 3.7 mmol/L (3.5-5.1)
[2019-03-07] MEDS: PIPERACILLIN/TAZOBACTAM 3.375 GM in IV NORMAL SALINE 50ML 50 ML IV SCH ×3 (05:57→18:28)
--- NOTE | 2019-03-07 08:18 | PDOC ---
Infectious Disease Note Subjective Subjective pt is awake, says is ok ROS ROS no n/v/d/sob Vital Sign Vital Signs Vital Signs Date Time Temp Pulse Resp B/P (MAP) Pulse Ox O2 Delivery O2 Flow Rate FiO2 03/07/19 06:00 104 20 112/66 (81) 96 Nasal Cannula 3.0 03/07/19 04:00 98.6 98.6 Physical Exam PHYSICAL EXAM VITAL SIGNS: stable GENERAL: The patient is awake, weak appearing. HEENT: Pupils equally round. Normal conjunctivae. Oral cavity: Pharynx pink and dry. LUNGS: Clear to auscultation. HEART: S1, S2. ABDOMEN: Soft, nontender with bowel sounds present. GENITOURINARY: Indwelling Shafer in place (03/04/2019). EXTREMITIES: No gross edema or cyanosis. Heel protectors in place. SKIN: Warm without rash. She has a fairly large sacrococcygeal stage 4 pressure wound with bone probed. NEUROLOGIC: Awake, responding appropriately. Contractures. Labs Lab Laboratory Tests Test 03/06/19 11:50 03/07/19 04:35 Sodium Level 143 mmol/L (136-145) 142 mmol/L (136-145) Potassium Level 5.8 mmol/L (3.5-5.1) 3.7 mmol/L (3.5-5.1) Chloride Level 112 mmol/L (98-107) 108 mmol/L (98-107) Carbon Dioxide Level 21 mmol/L (21-32) 23 mmol/L (21-32) Anion Gap 10 (6-14) 11 (6-14) Blood Urea Nitrogen 5 mg/dL (7-20) 4 mg/dL (7-20) Creatinine 0.5 mg/dL (0.6-1.0) 0.5 mg/dL (0.6-1.0) Estimated GFR (Cockcroft-Gault) 133.4 133.4 Glucose Level 193 mg/dL (70-99) 107 mg/dL (70-99) Calcium Level 7.8 mg/dL (8.5-10.1) 7.7 mg/dL (8.5-10.1) Vancomycin Level Trough 7.3 mcg/mL (10.0-20.0) Vancomycin Last Dose Date 03/05/19 Vancomycin Last Dose Time 1200 Micro Microbiology 03/04/19 Blood Culture - Preliminary, Resulted NO GROWTH AFTER 1 DAY URINE CULTURE Preliminary Preliminary report URINE CULTURE RES 1 Preliminary Gram negative rods Greater than 100,000 colony forming units per mL Performed at: [facility] [address], [place], [place] [id number] Administrator Social Welfare: ROCK Link MD, Phone: [phone] Objective Assessment 1. Sepsis with hypotension, requiring vasopressor support. 2. Lactic acidosis. 3. Pyuria. She was recently treated for urinary tract infection with cefepime. 4. Leukocytosis, improving. 5. 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 6. History of Clostridium difficile colitis in December 2018. 7. Progressive multiple sclerosis. 8. Chronic obstructive pulmonary disease. 9. Severe malnutrition. 10. Factor V Leiden. 11. History of methicillin-resistant Staphylococcus aureus, vancomycin resistant Enterococcus and multidrug-resistant organisms type infection. Plan Plan of Care Continue vancomycin and Zosyn po vanc prophylactically w/ recent history of C. diff f/u cultures Monitor labs/renal function closely wound care team consulted Offload D/w nursing ROSEMARY THOMAS MD Mar 07, 2019 08:18
[2019-03-07] MEDS: IPRATRPIUM/ALBUTEROL 0.5/2.5MG 3 ML NEBU. NEB SCH ×3 (08:47→20:02)
[2019-03-07] MEDS: DANTROLENE SODIUM 25 MG CAPSULE PO SCH ×3 (09:00→22:12)
[2019-03-07] MEDS: POTASSIUM CHLORIDE 20 MEQ/15 ML ORAL LIQUID. PO SCH ×3 (09:09→18:28)
[2019-03-07] MEDS: APIXABAN 5 MG TABLET. PO SCH ×2 (09:10→22:12)
[2019-03-07] MEDS: OXYBUTYNIN CHLORIDE 5 MG TABLET PO SCH ×3 (09:10→22:12)
[2019-03-07] MEDS: FAMOTIDINE 20 MG TABLET. PO SCH ×2 (09:10→22:12)
[2019-03-07] MEDS: FERROUS SULFATE 325 MG TABLET. PO SCH (09:11)
[2019-03-07] MEDS: CETIRIZINE HCL 10 MG TABLET. PO SCH (09:11)
[2019-03-07] MEDS: BACLOFEN 10 MG TABLET. PO SCH ×4 (09:11→22:12)
[2019-03-07] MEDS: DULoxetine HCL 30 MG CAPSULE.DR PO SCH (09:11)
[2019-03-07] MEDS: CHOLECALCIFEROL (VITAMIN D3) 1,000 UNIT TABLET PO SCH (09:11)
[2019-03-07] MEDS: MULTIVITAMIN with MINERAL TABLET. PO SCH (09:12)
[2019-03-07] MEDS: METHYL SALICYLATE/MENTHOL TOPICAL OINTMENT 29GM TUBE. TP SCH ×4 (09:13→22:13)
[2019-03-07] MEDS: NICOTINE 14MG PATCH. TD SCH (09:13)
[2019-03-07] MEDS: LACTOBACILLUS RHAMNOSUS GG 1 CAPSULE. PO SCH ×2 (09:18→22:11)
[2019-03-07] MEDS: NYSTATIN 100,000 UNITS/ML 5 ML ORAL.SUSP. SWSW SCH ×3 (09:18→22:12)
[2019-03-07] MEDS: VANCOMYCIN 125 MG/2.5 ML ORAL SOLUTION. PO SCH ×2 (09:18→22:13)
--- NOTE | 2019-03-07 13:19 | NUR ---
RN observed patient having difficulty swallowing pills. Frequent hiccups, moist cough after swallowing, difficulty clearing secretions. Speech here to evaluate - suggests thickened liquids while taking pills, will order a x-ray swallow study for tomorrow.
[2019-03-07] MEDS: VANCOMYCIN PER PHARMACY MC PRN (13:31)
[2019-03-07] MEDS: ANTI-COAG MONITOR BY PHARMACY. MC PRN (13:37)
[2019-03-07] MEDS: ALPRAZolam 0.5 MG TABLET PO SCH (22:11)
[2019-03-08] VITALS (51 sets, daily range): BP systolic 83–148; BP diastolic 50–81
[2019-03-08] MEDS: PIPERACILLIN/TAZOBACTAM 3.375 GM in IV NORMAL SALINE 50ML 50 ML IV SCH ×4 (00:15→17:07)
[2019-03-08 00:56] LABS: HEMATOCRIT 28.2 % (36.0-47.0); RED BLOOD COUNT 4.24 x10^6/uL (3.50-5.40); RED CELL DISTRIBUTION WIDTH 18.9 % (11.5-14.5); WHITE BLOOD COUNT 9.1 x10^3/uL (4.0-11.0)
[2019-03-08 01:11] LABS: VANC TR 13.7 mcg/mL (10.0-20.0)
--- NOTE | 2019-03-08 01:25 | PN ---
DATE: 03/07/2019 SUBJECTIVE: The patient is resting slightly propped up in bed, sleeping comfortably. On questioning her, denied any complaint. The nursing stated that she continued to require Levophed, although she is afebrile. Her white cell count is down. PHYSICAL EXAMINATION: GENERAL: When I examined her, she looked pale, cachectic. No jaundice, cyanosis, or thyromegaly. No jugular venous distension. No lower limb edema. VITAL SIGNS: Her heart rate was 104, blood pressure was 112/66, temperature was 98.6, respiratory rate was 20, and oxygen saturation was 96% on 3 liters of oxygen. The rest of clinical examination is stable, has not really changed. Her intake was 4780, output was 1500. LABORATORY DATA: As of this morning, her serum sodium was 142, potassium 3.7, chloride 108, bicarbonate 23, anion gap of 11, BUN 4, creatinine 0.5, estimated GFR was 133 mL per minute. Glucose 107, calcium was 7.7. Urine culture showed growth of more than 100,000 colony forming units per mL of Gram-negative rods. The identification and sensitivity is still pending. Blood cultures are so far negative. ASSESSMENT: 1. Sepsis, source not clear; however, she did grow more than 100,000 colony forming units per mL of gram-negative rods from her urine culture. So far we have not been able to collect stool sample for C. diff toxins. 2. The patient has multiple other medical problems including: a. Longstanding progressive multiple sclerosis with functional paraplegia and neurogenic bladder requiring suprapubic catheter. b. Large stage 4 sacrococcygeal decubitus ulcer. c. Factor V Leiden mutation, for which she is on Xarelto, although the patient herself has never had any history of deep vein thrombosis and pulmonary embolism. d. Chronic obstructive pulmonary disease. e. Severe protein-calorie malnutrition. f. Previous episode of Clostridium difficile colitis. g. Hypokalemia that has resolved. PLAN: To continue with the IV antibiotic. Continue with Levophed. Await the identification and sensitivity to adjust antibiotic accordingly. YOLI MEJIA MD DR: JUJU/ronit JOB#: [id number] / [id number]
[2019-03-08] MEDS: IV DEXTROSE 5 %-0.45 % NACL 1,000 ML IV SCH ×3 (01:30→15:56)
[2019-03-08] MEDS: VANCOMYCIN 1 GM in IV NORMAL SALINE 250ML 250 ML IV SCH ×2 (01:39→13:00)
[2019-03-08] MEDS: VANCOMYCIN PER PHARMACY MC PRN (01:59)
--- NOTE | 2019-03-08 01:59 | NUR ---
Pharmacy Vancomycin Dosing Note S:Consulted to monitor and dose vancomycin started 03/04/19. O:LENNY EVERETT is a 43 year old F with Sepsis HCAP UTI . Height: 5 feet, 4 inches Weight: 61.475193 kg [place] Body Weight: 54.70 Adjusted Body Weight: 57.22 Dosing Weight: Actual Other Antibiotics: ZOSYN 03/05 - LEVAQUIN -03/04 LABS: Last BUN: 4 Last Creatinine: 0.5 Creatinine Clearance: >120 mL/min Last WBC: 9.1 Last Procalcitonin: - Tmax (past 24 hours): 98.9 Microbiology: 03/07 GNR URINE 03/06 BCX NGTD I/O: 7457/2962 Drug Levels: Last Trough level: 13.7 on 03/08/19 at 0030 Last dose given 03/07/19 at 1220 Vancomycin Dosing: Loading Dose: 1500 mg x1 Dosing Weight: Actual Target Trough: 15-20 A: Based on: TROUGH AND CONDITION P: 1. Continue Vancomycin 1000 mg IV q12h 2. Follow up Trough level IF NEEDED 3. Pharmacy will continue to monitor, follow and adjust therapy as needed. ALEXANDRA LOGAN RPH, 03/08/19 0159 Signed: 03/08/19 at 0159 by ALEXANDRA LOGAN RPH PHA Signed: 03/08/19 at 0200 by ALEXANDRA LOGAN [facility]
[2019-03-08 02:21] LABS: CALCIUM 7.8 mg/dL (8.5-10.1); CREATININE 0.5 mg/dL (0.6-1.0); GFR 133.4; POTASSIUM 3.5 mmol/L (3.5-5.1)
[2019-03-08] MEDS: METHYL SALICYLATE/MENTHOL TOPICAL OINTMENT 29GM TUBE. TP SCH ×4 (09:00→20:55)
--- NOTE | 2019-03-08 09:08 | PDOC ---
Infectious Disease Note Subjective Subjective pt is awake, says is ok ROS ROS no n/v/d/ Vital Sign Vital Signs Vital Signs Date Time Temp Pulse Resp B/P (MAP) Pulse Ox O2 Delivery O2 Flow Rate FiO2 03/08/19 06:00 68 18 115/72 (86) 98 Nasal Cannula 3.0 03/08/19 04:00 99.0 99.0 Physical Exam PHYSICAL EXAM VITAL SIGNS: stable GENERAL: The patient is awake, weak appearing. HEENT: Pupils equally round. Normal conjunctivae. Oral cavity: Pharynx pink and dry. LUNGS: Clear to auscultation. HEART: S1, S2. ABDOMEN: Soft, nontender with bowel sounds present. GENITOURINARY: Indwelling Shafer in place (03/04/2019). EXTREMITIES: No gross edema or cyanosis. Heel protectors in place. SKIN: Warm without rash. She has a fairly large sacrococcygeal stage 4 pressure wound with bone probed. NEUROLOGIC: Awake, responding appropriately. Contractures. Labs Lab Laboratory Tests Test 03/08/19 00:40 White Blood Count 9.1 x10^3/uL (4.0-11.0) Red Blood Count 4.24 x10^6/uL (3.50-5.40) Hemoglobin 9.0 g/dL (12.0-15.5) Hematocrit 28.2 % (36.0-47.0) Mean Corpuscular Volume 67 fL (79-100) Mean Corpuscular Hemoglobin 21 pg (25-35) Mean Corpuscular Hemoglobin Concent 32 g/dL (31-37) Red Cell Distribution Width 18.9 % (11.5-14.5) Platelet Count 580 x10^3/uL (140-400) Sodium Level 145 mmol/L (136-145) Potassium Level 3.5 mmol/L (3.5-5.1) Chloride Level 109 mmol/L (98-107) Carbon Dioxide Level 26 mmol/L (21-32) Anion Gap 10 (6-14) Blood Urea Nitrogen 5 mg/dL (7-20) Creatinine 0.5 mg/dL (0.6-1.0) Estimated GFR (Cockcroft-Gault) 133.4 Glucose Level 111 mg/dL (70-99) Calcium Level 7.8 mg/dL (8.5-10.1) Vancomycin Level Trough 13.7 mcg/mL (10.0-20.0) Vancomycin Last Dose Date Vancomycin Last Dose Time Micro Microbiology 03/04/19 Blood Culture - Preliminary, Resulted NO GROWTH AFTER 1 DAY URINE CULTURE Preliminary Preliminary report URINE CULTURE RES 1 Preliminary Gram negative rods Greater than 100,000 colony forming units per mL Performed at: DA - [facility] [address], [place], [place] [id number] Graphics Production Specialist: ROCK Link MD, Phone: [phone] Objective Assessment 1. Sepsis with hypotension, requiring vasopressor support. 2. Lactic acidosis. 3. Pyuria. She was recently treated for urinary tract infection with cefepime. 4. Leukocytosis, improving. 5. 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 6. History of Clostridium difficile colitis in December 2018. 7. Progressive multiple sclerosis. 8. Chronic obstructive pulmonary disease. 9. Severe malnutrition. 10. Factor V Leiden. 11. History of methicillin-resistant Staphylococcus aureus, vancomycin resistant Enterococcus and multidrug-resistant organisms type infection. Plan Plan of Care Continue vancomycin and Zosyn po vanc prophylactically w/ recent history of C. diff f/u cultures Monitor labs/renal function closely wound care team consulted Offload D/w nursing ROSEMARY THOMAS MD March 08, 2019 09:08
[2019-03-08] MEDS: IPRATRPIUM/ALBUTEROL 0.5/2.5MG 3 ML NEBU. NEB SCH ×3 (09:25→20:02)
[2019-03-08] MEDS: FERROUS SULFATE 325 MG TABLET. PO SCH (09:26)
[2019-03-08] MEDS: FAMOTIDINE 20 MG TABLET. PO SCH ×2 (09:26→20:53)
[2019-03-08] MEDS: OXYBUTYNIN CHLORIDE 5 MG TABLET PO SCH ×3 (09:26→20:54)
[2019-03-08] MEDS: CHOLECALCIFEROL (VITAMIN D3) 1,000 UNIT TABLET PO SCH (09:26)
[2019-03-08] MEDS: DANTROLENE SODIUM 25 MG CAPSULE PO SCH ×3 (09:26→20:53)
[2019-03-08] MEDS: MULTIVITAMIN with MINERAL TABLET. PO SCH (09:26)
[2019-03-08] MEDS: POTASSIUM CHLORIDE 20 MEQ/15 ML ORAL LIQUID. PO SCH ×3 (09:27→17:00)
[2019-03-08] MEDS: APIXABAN 5 MG TABLET. PO SCH ×2 (09:27→20:53)
[2019-03-08] MEDS: CETIRIZINE HCL 10 MG TABLET. PO SCH (09:27)
[2019-03-08] MEDS: NICOTINE 14MG PATCH. TD SCH (09:27)
[2019-03-08] MEDS: NYSTATIN 100,000 UNITS/ML 5 ML ORAL.SUSP. SWSW SCH ×3 (09:27→20:54)
[2019-03-08] MEDS: LACTOBACILLUS RHAMNOSUS GG 1 CAPSULE. PO SCH ×2 (09:27→20:53)
[2019-03-08] MEDS: BACLOFEN 10 MG TABLET. PO SCH ×3 (09:34→17:07)
[2019-03-08] MEDS: DULoxetine HCL 30 MG CAPSULE.DR PO SCH (09:34)
[2019-03-08] MEDS: VANCOMYCIN 125 MG/2.5 ML ORAL SOLUTION. PO SCH ×2 (09:34→20:53)
--- NOTE | 2019-03-08 12:00 | NUR ---
Dr Frankel here. Levo thru PIV on foot. Approved PICC line placement for pressor and ABX.. [place] [facility] unable to come till 7PM tonight. [facility]asc Lab can do. Pt gave verbal consent but couldn't sign. Witnessed by 2 nurses. Vasc Lab here and placed 2lumen PICC on RUE. Tried to take Levo off earlier and BP woould not take on auto cuff. Placed to back as this was on Rt side. Video swallow moved to tomorrow. Per ST, pt can take reg diet and thin liq in upright position. Meds given
[2019-03-08] MEDS ORDERED: BARIUM SULFATE 40% (APPLE) 148 GM PWD. PO ONE (12:15)
[2019-03-08] MEDS ORDERED: LIDOCAINE WITH 8.4% SOD BICARB 3 ML DISP.SYRIN. ONE (12:48)
[2019-03-08] MEDS ORDERED: LIDOCAINE WITH 8.4% SOD BICARB 3 ML DISP.SYRIN. INJ ONE (13:30)
--- NOTE | 2019-03-08 15:22 | RAD ---
Exam: Fluoroscopic and ultrasound guided right percutaneous inserted central venous catheter placement 03/08/2019 3:19 PM .Indication: Critically ill patient. Multiple medications. Poor venous access Technique: Informed oral and written consent were obtained. The right upper extremity was prepped and draped using sterile barrier technique. All elements of maximal sterile barrier technique including the use of a cap, mask, sterile gown, sterile gloves, large sterile sheet, appropriate hand hygiene, and 2% chlorhexidine for cutaneous antisepsis (or acceptable alternative antiseptic per current guidelines) were followed for this procedure.. Real-time ultrasound demonstrated a patent right basilic vein. The right upper extremity was prepped and draped in usual sterile fashion. 1% lidocaine used for local anesthesia. Using real-time ultrasound guidance the access needle percutaneously punctured the selected vein. Reference ultrasound images were saved to the medical record. A guidewire was advanced through the needle to the cavoatrial junction, and a peel-away sheath placed. The catheter was cut to length and inserted through the peel-away sheath such that its tip is at the cavoatrial junction. The wire and sheath were removed, and the catheter secured in place, and a sterile dressing was applied. Catheter was found to flush and aspirate normally. No immediate complications are identified. FLUORO TIME: 0.3 DOSE AREA PRODUCT: 0.1 Gycm2 Impression: Ultrasound and fluoroscopically guided placement of a right upper extremity PICC line.
--- NOTE | 2019-03-08 17:28 | NUR ---
after turning pt for linen change, pt went into svt 180-200 very regular. Unable to do vagal as pt does not have ability to cough or bear down [address] Frankel called. Adenosine 6mg IV fast with slow down to ST 100. Spoke with Dr Perez, fluid bolus 500 and may give adenosine again if recurs.
[2019-03-08] MEDS ORDERED: ADENOSINE 6 MG/2 ML VIAL. IV ONE (17:30)
[2019-03-08] MEDS ORDERED: IV NORMAL SALINE 500ML BAG 500 ML IV ONE (17:45)
--- NOTE | 2019-03-08 17:47 | EKG ---
[facility] [address] [place] [address] Test Date: 2019-03-08 Test Time: 17:42:19 Pat Name: LENNY EVERETT Department: Room: 114 Gender: F [employer]ro Compass Tester: RAPHAEL : 1975 Requested By: YOLI MEJIA Order Number: [id number] Reading MD: Mike Perez Measurements Intervals [place] Rate: 96 P: 0 IL: 94 QRS: 5 QRSD: 66 T: 93 QT: 364 QTc: 461 Interpretive Statements SINUS RHYTHM LOW LIMB LEAD VOLTAGE Electronically Signed On 03-10-2019 9:59:51 CDT by Mike Perez
[2019-03-08] MEDS: NOREPINEPHRIN 8MG/250ML PREMIX 250 ML IV PRN (17:48)
--- NOTE | 2019-03-08 18:15 | NUR ---
SVT again rate 200. Adenosine 6mg given again with return to SR,. Did have to increase Levo after first SVT and Levo remains 4mcg/min. Will notify Dr Perez
--- NOTE | 2019-03-08 18:30 | NUR ---
Order rec'd from Dr Perez for Dig x 2 doses
[2019-03-08] MEDS ORDERED: DIGOXIN IV 500 MCG/2 ML AMPUL. IV ONE ×2 (18:45→21:00)
[2019-03-08] MEDS: ALPRAZolam 0.5 MG TABLET PO SCH (20:53)
[2019-03-09] VITALS (37 sets, daily range): BP systolic 80–142; BP diastolic 43–85
[2019-03-09] MEDS: PIPERACILLIN/TAZOBACTAM 3.375 GM in IV NORMAL SALINE 50ML 50 ML IV SCH ×4 (00:21→18:04)
[2019-03-09] MEDS: BACLOFEN 10 MG TABLET. PO SCH ×5 (00:34→21:01)
[2019-03-09] MEDS: VANCOMYCIN 1 GM in IV NORMAL SALINE 250ML 250 ML IV SCH ×2 (01:20→13:48)
--- NOTE | 2019-03-09 02:43 | PN ---
DATE: 03/08/2019 SUBJECTIVE: The patient is resting slightly propped up in bed, in no apparent distress, awake, alert. On questioning her, denied any complaint. The nursing staff was concerned that she continued to be on Levophed as well as IV antibiotic through an IV line in her foot, so a PICC line or midline was ordered. PHYSICAL EXAMINATION: GENERAL: When I examined her, she looked pale, somewhat cachectic, but no jaundice, cyanosis, or thyromegaly. No jugular venous distension. No lower limb edema. VITAL SIGNS: Her heart rate was 68, blood pressure was 115/72, temperature was 99, respiratory rate was 18 and oxygen saturation was 98% on 3 liters of oxygen by nasal cannula. HEAD, EYES, EARS, NOSE AND THROAT: Showed normocephalic, atraumatic. NECK: Supple. HEART: Showed normal first and second sounds. No gallop, rub or murmur. CHEST: Clear to auscultation. No crepitation or rhonchi. ABDOMEN: Distended, soft, tender, suprapubic catheter in place. NEUROLOGIC: She is awake, alert, responding appropriately. All cranial nerves intact. She moves her upper extremities to much good extent than lower extremities. She has paraplegia with neurogenic bladder. She has large stage 4 sacrococcygeal decubitus ulcer. Her intake over the last 24 hours was 2640, output was 2170. LABORATORY DATA: As of this morning, her serum sodium was 145, potassium 3.5, chloride 109, bicarbonate 26, anion gap of 10, BUN 5, creatinine 0.5, estimated GFR was 133 mL per minute. Her glucose was 111, calcium was 7.8. White cell count is down to 9100, hemoglobin 9, hematocrit 28, MCV 67 and platelet count 580,000. Her vancomycin trough level was 13.7. Her urine culture showed mixed urogenital sohan greater than 100,000 colony forming units per mL. Her blood cultures so far showed no growth. ASSESSMENT: 1. Sepsis, source not clear; however, she did grow more than 100,000 colony forming units per mL of Gram-negative rods; however, ____ mixed urogenital sohan. So far we have not been able to collect stool sample for C. diff toxins. 2. The patient has multiple other medical problems including: a. Longstanding progressive multiple sclerosis with functional paraplegia, neurogenic bladder requiring suprapubic catheter. b. Large stage 4 sacrococcygeal decubitus ulcer. c. Factor V Leiden mutation, for which she is on Xarelto, although the patient herself has never had any history of deep vein thrombosis and/or pulmonary embolism. d. Chronic obstructive pulmonary disease. e. Severe protein-calorie malnutrition. f. Previous episodes of clostridium difficile colitis. g. Hypokalemia that has resolved. PLAN: To continue IV antibiotic, continue with IV Levophed. We will arrange for her to have a midline or a PICC line. YOLI MEJIA MD DR: JUJU/ronit JOB#: [id number] / [id number]
[2019-03-09] MEDS: IV DEXTROSE 5 %-0.45 % NACL 1,000 ML IV SCH (04:29)
[2019-03-09 06:31] LABS: CALCIUM 7.8 mg/dL (8.5-10.1); CREATININE 0.5 mg/dL (0.6-1.0); GFR 133.4; POTASSIUM 3.3 mmol/L (3.5-5.1)
--- NOTE | 2019-03-09 07:44 | PDOC ---
Infectious Disease Note Subjective Subjective pt is awake, says is ok ROS ROS no n/v/d/ Vital Sign Vital Signs Vital Signs Date Time Temp Pulse Resp B/P (MAP) Pulse Ox O2 Delivery O2 Flow Rate FiO2 03/09/19 06:00 71 16 105/67 (80) 99 Room Air 03/09/19 04:00 3.0 03/09/19 04:00 97.1 97.1 Physical Exam PHYSICAL EXAM VITAL SIGNS: stable GENERAL: The patient is awake, weak appearing. HEENT: Pupils equally round. Normal conjunctivae. Oral cavity: Pharynx pink and dry. LUNGS: Clear to auscultation. HEART: S1, S2. ABDOMEN: Soft, nontender with bowel sounds present. GENITOURINARY: Indwelling Shafer in place (03/04/2019). EXTREMITIES: No gross edema or cyanosis. Heel protectors in place. SKIN: Warm without rash. She has a fairly large sacrococcygeal stage 4 pressure wound with bone probed. NEUROLOGIC: Awake, responding appropriately. Contractures. Labs Lab Laboratory Tests Test 03/09/19 05:50 Sodium Level 142 mmol/L (136-145) Potassium Level 3.3 mmol/L (3.5-5.1) Chloride Level 108 mmol/L (98-107) Carbon Dioxide Level 28 mmol/L (21-32) Anion Gap 6 (6-14) Blood Urea Nitrogen 3 mg/dL (7-20) Creatinine 0.5 mg/dL (0.6-1.0) Estimated GFR (Cockcroft-Gault) 133.4 Glucose Level 111 mg/dL (70-99) Calcium Level 7.8 mg/dL (8.5-10.1) Micro Microbiology 03/04/19 Blood Culture - Preliminary, Resulted NO GROWTH AFTER 1 DAY URINE CULTURE Preliminary Preliminary report URINE CULTURE RES 1 Preliminary Gram negative rods Greater than 100,000 colony forming units per mL Performed at: [facility] - [facility] [address] [place] [address] [address], [place], [place] [id number] Carbon Plant Grinder: ROCK Link MD, Phone: [phone] Objective Assessment 1. Sepsis with hypotension, requiring vasopressor support. 2. Lactic acidosis. 3. Pyuria. She was recently treated for urinary tract infection with cefepime. 4. Leukocytosis, improving. 5. 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 6. History of Clostridium difficile colitis in December 2018. 7. Progressive multiple sclerosis. 8. Chronic obstructive pulmonary disease. 9. Severe malnutrition. 10. Factor V Leiden. 11. History of methicillin-resistant Staphylococcus aureus, vancomycin resistant Enterococcus and multidrug-resistant organisms type infection. Plan Plan of Care Continue vancomycin and Zosyn po vanc prophylactically w/ recent history of C. diff f/u cultures Monitor labs/renal function closely wound care team consulted Offload D/w nursing ROSEMARY THOMAS MD March 09, 2019 07:44
[2019-03-09] MEDS: POTASSIUM CHLORIDE 20 MEQ/15 ML ORAL LIQUID. PO SCH ×3 (08:00→15:42)
[2019-03-09] MEDS: IPRATRPIUM/ALBUTEROL 0.5/2.5MG 3 ML NEBU. NEB SCH ×3 (08:15→21:58)
--- NOTE | 2019-03-09 09:21 | CARD ---
MR#: [id number] Date of Study: 03/09/2019 Ordering Physician: KHADIJAH DUTTA, Referring Physician: YOLI MEJIA Tech: Liat Penaloza [facility] APPROVED REPORT EXAM: Two-dimensional and M-mode echocardiogram with Doppler and color Doppler. Other Information Quality : Technically LimitedHR: 92bpm Rhythm : NSRTechnically limited study due to body habitus and smoking. INDICATION Arrhythmia 2D DIMENSIONS RVDd3.0 (2.9-3.5cm)Left Atrium(2D)3.2 (1.6-4.0cm) IVSd1.2 (0.7-1.1cm)Aortic Root(2D)2.6 (2.0-3.7cm) LVDd3.8 (3.9-5.9cm)LVOT Diameter2.3 (1.8-2.4cm) PWd1.0 (0.7-1.1cm)LVDs2.7 (2.5-4.0cm) FS (%) 28.2 %SV34.2 ml LVEF(%)55.2 (>50%) Aortic Valve AoV Peak Emery.164.5cm/sAoV VTI29.2cm AO Peak GR.10.8mmHgLVOT VTI 14.43cm AO Mean GR.6mmHgAVA (VTI)2.00cm2 Mitral Valve MV E Ppnkzokr25.4cm/sMV DECEL [id number] MV A Xsukksiv59.7cm/sE/A Ratio1.0 MV A Refpfzjp781xo TDI Lateral E' P. V13.97cm/sMedial E' P. V10.17cm/s E/Lateral E'4.9E/Medial E'6.7 Tricuspid Valve TR P. Adlicmnb720yv/sRAP VANANCCN1nxNd TR Peak Gr.97cxQmRPHJ23zrOz LEFT VENTRICLE The left ventricle is normal size. There is normal left ventricular wall thickness. The left ventricu lar systolic function is normal. The Ejection Fraction is 55-60%. There is normal LV segmental wall m otion. Transmitral Doppler flow pattern is Grade II-pseudonormal filling dynamics. RIGHT VENTRICLE The right ventricle is normal size. There is normal right ventricular wall thickness. The right ventr icular systolic function is normal. ATRIA The left atrium size is normal. The right atrium size is normal. The interatrial septum is intact wit h no evidence for an atrial septal defect or patent foramen ovale as noted on 2-D or Doppler imaging. AORTIC VALVE The aortic valve is not well visualized. Doppler and Color Flow revealed no significant aortic regurg itation. There is no significant aortic valvular stenosis. MITRAL VALVE The mitral valve is thickened but opens well. There is no evidence of mitral valve prolapse. There is no mitral valve stenosis. Doppler and Color Flow revealed no mitral valve regurgitation noted. TRICUSPID VALVE The tricuspid valve is normal in structure and function. Doppler and Color Flow revealed trace tricus pid regurgitation. The PA pressure was estimated at 27 mmHg. There is no tricuspid valve prolapse or vegetation. There is no tricuspid valve stenosis. PULMONIC VALVE The pulmonic valve is not well visualized. GREAT VESSELS The aortic root is normal in size. The ascending aorta is normal in size. The IVC is normal in size a nd collapses >50% with inspiration. PERICARDIAL EFFUSION There is no evidence of significant pericardial effusion. Critical Notification Critical Value: No <Conclusion> The left ventricular systolic function is normal. The Ejection Fraction is 55-60%. There is normal LV segmental wall motion. Transmitral Doppler flow pattern is Grade II-pseudonormal filling dynamics. Doppler and Color Flow revealed trace tricuspid regurgitation. The PA pressure was estimated at 27 mmHg. There is no evidence of significant pericardial effusion. Signed by : Kvng Mcmahon, Electronically Approved : 03/09/2019 09:20:37
[2019-03-09] MEDS: POTASSIUM CL 40MEQ D5-0.45NACL 1,000 ML IV SCH ×2 (09:37→18:15)
[2019-03-09] MEDS: NYSTATIN 100,000 UNITS/ML 5 ML ORAL.SUSP. SWSW SCH ×3 (09:39→21:04)
[2019-03-09] MEDS: FAMOTIDINE 20 MG TABLET. PO SCH ×2 (09:40→21:01)
[2019-03-09] MEDS: APIXABAN 5 MG TABLET. PO SCH ×2 (09:40→21:01)
[2019-03-09] MEDS: FERROUS SULFATE 325 MG TABLET. PO SCH (09:40)
[2019-03-09] MEDS: CHOLECALCIFEROL (VITAMIN D3) 1,000 UNIT TABLET PO SCH (09:41)
[2019-03-09] MEDS: MULTIVITAMIN with MINERAL TABLET. PO SCH (09:41)
[2019-03-09] MEDS: NICOTINE 14MG PATCH. TD SCH (09:41)
[2019-03-09] MEDS: DULoxetine HCL 30 MG CAPSULE.DR PO SCH (09:41)
[2019-03-09] MEDS: CETIRIZINE HCL 10 MG TABLET. PO SCH (09:41)
[2019-03-09] MEDS: LACTOBACILLUS RHAMNOSUS GG 1 CAPSULE. PO SCH ×2 (09:41→21:01)
[2019-03-09] MEDS: DANTROLENE SODIUM 25 MG CAPSULE PO SCH ×3 (09:42→21:01)
[2019-03-09] MEDS: VANCOMYCIN 125 MG/2.5 ML ORAL SOLUTION. PO SCH ×2 (09:43→21:00)
[2019-03-09] MEDS: OXYBUTYNIN CHLORIDE 5 MG TABLET PO SCH ×3 (09:43→21:01)
[2019-03-09] MEDS: METHYL SALICYLATE/MENTHOL TOPICAL OINTMENT 29GM TUBE. TP SCH ×4 (09:43→21:02)
[2019-03-09] MEDS ORDERED: BARIUM SULFATE 40% PO ONE (10:00)
[2019-03-09] MEDS ORDERED: BARIUM SULFATE 40% (APPLE) 148 GM PWD. PO ONE (10:15)
[2019-03-09] MEDS: oxyCODONE IR 5 MG TABLET PO PRN (11:15)
--- NOTE | 2019-03-09 11:53 | PDOC2 ---
CARDIAC CONSULT DATE OF CONSULT Date of Consult DATE: 03/09/19 TIME: 929 REASON FOR CONSULT Reason for Consult: SVT REFERRING PHYSICIAN Referring Physician: Jostin SOURCE Source: Chart review, Patient HISTORY OF PRESENT ILLNESS HISTORY OF PRESENT ILLNESS This is a 43 yo female admitted for noted altered mental status and fever. She [facility] the detention, debilitated with multiple contractures and coccyx wound with hx of multiple drug resistant infections in the past. She has been having nonproductive cough with some chest pain but noted SOA. Currently she is alert and oriented but unclear why she came to the hospital. No complains of chest pain for . No hx of CAD or arrhythmias. She does have past hx fo PE and DVT with factor V leiden and hence with eliquis. Consult is for arrhythmia and was treated with 2x adenosine and eventually digoxin as her BP was low and unable to tolerate any cardizem or BB. PAST MEDICAL HISTORY Pulmonary: COPD, Pulmonary embolus CENTRAL NERVOUS SYSTEM: Other (multiple sclerosis) GI: Other Heme/Onc: Other (factor V leiden; DVT) Psych: Anxiety, Depression, Other (anorxia/bulimia) Musculoskeletal: Other (debility, multiple extremity contractures ) Infectious disease: Other (MRSA, VRE; C-diff) Dermatology: Other (stage 4 coccygeal decub) PAST SURGICAL HISTORY Past Surgical History: Other (coccyx wond debridement) FAMILY HISTORY Family History: Other (factor V leiden) SOCIAL HISTORY Smoke: <1 pack per day ALCOHOL: none Drugs: None Lives: Jail CURRENT MEDICATIONS CURRENT MEDICATIONS Current Medications Medications (Trade) Dose Ordered Sig/Amber Route PRN Reason Start Time Stop Time Status Last Admin Dose Admin Lidocaine/Sodium Bicarbonate (Buffered Lidocaine 1%) 3 ml 1X ONCE INJ 03/08/19 13:30 03/08/19 13:31 DC 03/08/19 13:26 Adenosine (Adenocard) 6 mg 1X ONCE IV 03/08/19 17:30 03/08/19 17:31 DC 03/08/19 17:45 Sodium Chloride 500 ml @ 500 mls/hr 1X ONCE IV 03/08/19 17:45 03/08/19 18:44 DC 03/08/19 17:45 Digoxin (Lanoxin) 250 mcg 1X ONCE IV 03/08/19 18:45 03/08/19 18:46 DC 03/08/19 18:57 Digoxin (Lanoxin) 250 mcg 1X ONCE IV 03/08/19 21:00 03/08/19 21:01 DC 03/08/19 20:49 Potassium Chloride/Dextrose/ Sod Cl 1,000 ml @ 100 mls/hr Q10H IV 03/09/19 09:00 03/09/19 09:37 ALLERGIES ALLERGIES: Coded Allergies: I S O L A T I O N *CONTACT* (Verified Allergy, Unknown, 01/02/19) C.diff/mrsa No Known Medication Allergies (Verified Allergy, Unknown, 04/28/17) ROS Review of System limited, poor historian PHYSICAL EXAM General: Alert, Oriented X3, Cooperative, No acute distress HEENT: Atraumatic, Mucous membr. moist/pink Lungs: Clear to auscultation, Normal air movement, Other (faint basilar crackles) Heart: Regular rate (SR), Normal S1, Normal S2 Abdomen: Soft, No tenderness Extremities: No cyanosis, No edema Skin: Other (coccyx wound) Neuro: Normal speech, Sensation intact Psych/Mental Status: Other (flat affect) MUSCULOSKELETAL: Other (multiple extremity contractures) VITALS VITALS Vital Signs Date Time Temp Pulse Resp B/P (MAP) Pulse Ox O2 Delivery O2 Flow Rate FiO2 03/09/19 11:15 16 Room Air 03/09/19 09:30 82 104/68 (80) 100 03/09/19 08:16 2.0 03/09/19 04:00 97.1 97.1 LABS Lab: Laboratory Tests Test 03/09/19 05:50 Sodium Level 142 mmol/L (136-145) Potassium Level 3.3 mmol/L (3.5-5.1) Chloride Level 108 mmol/L (98-107) Carbon Dioxide Level 28 mmol/L (21-32) Anion Gap 6 (6-14) Blood Urea Nitrogen 3 mg/dL (7-20) Creatinine 0.5 mg/dL (0.6-1.0) Estimated GFR (Cockcroft-Gault) 133.4 Glucose Level 111 mg/dL (70-99) Calcium Level 7.8 mg/dL (8.5-10.1) ASSESSMENT/PLAN ASSESSMENT/PLAN 1. Sepsis/shock/UTI: with hx of multidrug resistant infections 2. Arrhythmia: SVT which is likely induced by above slowed and noted with AFIB and noted with 2 episodes type 2 mobitz potentially vagally induced and with digoxin use. Maintaining SR since then 3. Multiple sclerosis 4. Hx of DVT/PE per chart review: does pt has IVC filter? 5. COPD 6. Chronic debility with extremity contractures 7. Hx of Factor V Leiden. 8. Protein malnutrition Recommendations 1. Continue levophed per BP trend. Antibiotics per ID 2. Monitor rhythm for any further need of AV faraz blocking agents. Dig PRN for now otherwise will consider BB for refractory arrhythmia 3. currently on eliquis. Check TTE. Replace K and check Mg and TSH 4. Supportive care KHADIJAH DUTTA REGISTERED DIETICIAN March 09, 2019 11:53
--- NOTE | 2019-03-09 12:02 | RAD ---
Video dysphasia study, 03/09/2019: History: Dysphasia, multiple sclerosis The swallowing mechanism was examined fluoroscopically in the lateral projection with the patient ingested a variety of food materials with barium. 3.4 minutes of fluoroscopy time was utilized. One video fluoroscopic loop was recorded by a member of the speech Department. When ingesting the thin liquids there was minimal deep laryngeal penetration without gene aspiration. The laryngeal penetration abated with the nectar consistency and honey thicker materials. The majority of the barium bolus passed normally through the cervical esophagus. The patient ingested pudding consistency material and the barium coated solid without difficulty. IMPRESSION: Mild deep laryngeal penetration of the thin liquids which abated when the thicker materials were utilized.
[2019-03-09] MEDS: VANCOMYCIN PER PHARMACY MC PRN (12:53)
[2019-03-09] MEDS: ANTI-COAG MONITOR BY PHARMACY. MC PRN (12:56)
[2019-03-09] MEDS ORDERED: MAGNESIUM SULFATE 2GM 50 ML IV ONE (13:45)
--- NOTE | 2019-03-09 16:33 | NUR ---
SS following up with discharge planning. Pt continues on IV antibiotics and IV levophed. Pt is from [facility] [place] and is able to return when medically stable for discharge. SS will continue to follow for discharge planning.
[2019-03-09] MEDS ORDERED: ADENOSINE 6 MG/2 ML VIAL. IV ONE ×3 (17:53→18:00)
[2019-03-09] MEDS: ALPRAZolam 0.5 MG TABLET PO SCH (21:01)
[2019-03-10] VITALS (24 sets, daily range): BP systolic 85–144; BP diastolic 53–88
--- NOTE | 2019-03-10 00:31 | PN ---
DATE: 03/09/2019 SUBJECTIVE: The patient is resting slightly propped up in bed, in no apparent respiratory distress. She is awake, alert. On questioning her, she said that she is anxious, hence could not sleep last night because she had 2 episodes of SVT with the heart rate that goes up to 200 that has responded to adenosine twice and then she was started also on digoxin. PHYSICAL EXAMINATION: GENERAL: When I examined her this morning, she looked well and was clearly in no apparent respiratory distress. She was pale, but no jaundice, cyanosis or thyromegaly. No jugular venous distention. No lower limb edema. VITAL SIGNS: Her heart rate was 71, blood pressure was 105/67, temperature was 97.1, respiratory rate was 16, and oxygen saturation was 97% on room air. HEAD, EYES, EARS, NOSE, AND THROAT: Showed normocephalic, atraumatic. NECK: Supple. HEART: Showed normal first and second heart sounds. No gallop, rub or murmur. CHEST: Clear to auscultation. No crepitation or rhonchi. ABDOMEN: Scaphoid, soft, suprapubic catheter in place. NEUROLOGIC: She was awake, alert, responding appropriately. All cranial nerves intact. She moves all extremities without difficulty. She has longstanding multiple sclerosis with functional paraplegia, neurogenic bladder requiring suprapubic catheter. She has large sacral region decubitus ulcer. Her intake over the last 24 hours was 1775, output was 3600. LABORATORY DATA: As of this morning, her serum sodium was 142, potassium 3.3, chloride 108, bicarbonate 28, anion gap of 6, BUN 3, creatinine 0.5, estimated GFR was 133 mL per minute. Her glucose was 111, calcium was 7.8. ASSESSMENT: 1. Sepsis, source is not clear; however, she did grow more than 100,000 colony forming unit per mL of mixed urogenital sohan. Blood cultures showed no growth after 4 days. The patient is clinically responding to antibiotic. Her white cell count came down from 42,000-9000. 2. The patient has multiple other medical problems including: a. Longstanding progressive multiple sclerosis, functional paraplegia, neurogenic bladder requiring suprapubic catheter. b. Large stage 4 sacral decubitus ulcer. c. Factor V Leiden mutation, for which she is on Xarelto, although the patient herself has never had any history of deep vein thrombosis or pulmonary embolism. d. Chronic obstructive pulmonary disease. e. Severe protein calorie malnutrition. f. Previous episode of Clostridium difficile colitis. g. Hypokalemia, continues. h. Recurrent episode of supraventricular tachycardia that responded yesterday to adenosine and digoxin. We did consult the Cardiology team for evaluation and treatment. PLAN: To switch her IV fluid to D5 half normal with potassium and continue the IV antibiotic and await the Cardiology evaluation and treatment for recurrent episode of SVT. YOLI MEJIA MD DR: JUJU/ronit JOB#: [id number] / [id number]
[2019-03-10] MEDS: PIPERACILLIN/TAZOBACTAM 3.375 GM in IV NORMAL SALINE 50ML 50 ML IV SCH ×5 (00:39→23:48)
[2019-03-10] MEDS: VANCOMYCIN 1 GM in IV NORMAL SALINE 250ML 250 ML IV SCH ×2 (00:41→13:29)
[2019-03-10] MEDS: POTASSIUM CL 40MEQ D5-0.45NACL 1,000 ML IV SCH ×2 (05:56→18:02)
[2019-03-10 06:10] LABS: CALCIUM 8.3 mg/dL (8.5-10.1); CREATININE 0.6 mg/dL (0.6-1.0); GFR 108.1; MAGNESIUM 1.8 mg/dL (1.8-2.4); POTASSIUM 4.6 mmol/L (3.5-5.1)
[2019-03-10] MEDS: IPRATRPIUM/ALBUTEROL 0.5/2.5MG 3 ML NEBU. NEB SCH ×3 (07:34→19:59)
[2019-03-10 08:10] LABS: BASO # 0.1 x10^3/uL (0.0-0.2); BASO % 1 % (0-3); EOS # 0.2 x10^3/uL (0.0-0.7); EOS % 2 % (0-3); HEMATOCRIT 31.6 % (36.0-47.0); LYMPH # 0.7 x10^3/uL (1.0-4.8); LYMPH % 5 % (24-48); MEAN CORPUSCULAR HEMOGLOBIN 22 pg (25-35); MEAN CORPUSCULAR HGB CONC 32 g/dL (31-37); MEAN CORPUSCULAR VOLUME 69 fL (79-100); MONO # 0.7 x10^3/uL (0.0-1.1); MONO % 4 % (0-9); NEUT # 13.3 x10^3uL (1.8-7.7); NEUT % 89 % (31-73); PLATELET COUNT 550 x10^3/uL (140-400); RED BLOOD COUNT 4.61 x10^6/uL (3.50-5.40); RED CELL DISTRIBUTION WIDTH 19.5 % (11.5-14.5)
--- NOTE | 2019-03-10 08:43 | RAD ---
PORTABLE CHEST 1V History: Shortness of air Comparison: None. Findings: Single view of the chest is submitted. There is free air beneath the right hemidiaphragm. There is right upper extremity PICC now present with the tip in the region of the inferior aspect of the superior vena cava. Heart size is stable, within normal limits. There is likely very small left pleural effusion. No pneumothorax is identified. Impression: 1. There is now free air beneath right hemidiaphragm. 2. There is very small left pleural effusion. FOR INTERNAL CODING PURPOSES Critical result: Findings discussed with patient's nurse Shayne at 03/10/2019 8:32 AM. RESULT CODE: (C) Electronically signed by: Marcelino Sahu MD (03/10/2019 8:40 AM) [id number]
[2019-03-10] MEDS: NICOTINE 14MG PATCH. TD SCH (09:00)
--- NOTE | 2019-03-10 09:02 | PDOC ---
Infectious Disease Note Subjective Subjective pt is awake, says is ok ROS ROS no n/v/d/ low grade fever Vital Sign Vital Signs Vital Signs Date Time Temp Pulse Resp B/P (MAP) Pulse Ox O2 Delivery O2 Flow Rate FiO2 03/10/19 07:34 95 Nasal Cannula 4.5 03/10/19 06:00 120 18 105/70 (82) 03/10/19 04:00 99.9 99.9 Physical Exam PHYSICAL EXAM VITAL SIGNS: stable GENERAL: The patient is awake, weak appearing. HEENT: Pupils equally round. Normal conjunctivae. Oral cavity: Pharynx pink and dry. LUNGS: Clear to auscultation. HEART: S1, S2. ABDOMEN: Soft, nontender with bowel sounds present. GENITOURINARY: Indwelling Shafer in place (03/04/2019). EXTREMITIES: No gross edema or cyanosis. Heel protectors in place. SKIN: Warm without rash. She has a fairly large sacrococcygeal stage 4 pressure wound with bone probed. NEUROLOGIC: Awake, responding appropriately. Contractures. Labs Lab Laboratory Tests Test 03/10/19 05:45 White Blood Count 15.0 x10^3/uL (4.0-11.0) Red Blood Count 4.61 x10^6/uL (3.50-5.40) Hemoglobin 10.0 g/dL (12.0-15.5) Hematocrit 31.6 % (36.0-47.0) Mean Corpuscular Volume 69 fL (79-100) Mean Corpuscular Hemoglobin 22 pg (25-35) Mean Corpuscular Hemoglobin Concent 32 g/dL (31-37) Red Cell Distribution Width 19.5 % (11.5-14.5) Platelet Count 550 x10^3/uL (140-400) Neutrophils (%) (Auto) 89 % (31-73) Lymphocytes (%) (Auto) 5 % (24-48) Monocytes (%) (Auto) 4 % (0-9) Eosinophils (%) (Auto) 2 % (0-3) Basophils (%) (Auto) 1 % (0-3) Neutrophils # (Auto) 13.3 x10^3uL (1.8-7.7) Lymphocytes # (Auto) 0.7 x10^3/uL (1.0-4.8) Monocytes # (Auto) 0.7 x10^3/uL (0.0-1.1) Eosinophils # (Auto) 0.2 x10^3/uL (0.0-0.7) Basophils # (Auto) 0.1 x10^3/uL (0.0-0.2) Sodium Level 138 mmol/L (136-145) Potassium Level 4.6 mmol/L (3.5-5.1) Chloride Level 103 mmol/L (98-107) Carbon Dioxide Level 25 mmol/L (21-32) Anion Gap 10 (6-14) Blood Urea Nitrogen 3 mg/dL (7-20) Creatinine 0.6 mg/dL (0.6-1.0) Estimated GFR (Cockcroft-Gault) 108.1 Glucose Level 97 mg/dL (70-99) Calcium Level 8.3 mg/dL (8.5-10.1) Magnesium Level 1.8 mg/dL (1.8-2.4) Thyroid Stimulating Hormone (TSH) 1.807 uIU/mL (0.358-3.74) Micro Procedure Result URINE CULTURE Final Final report URINE CULTURE RES 1 Final Comment Mixed urogenital sohan Greater than 100,000 colony forming units per mL THIS IS AN UPDATED REPORT Performed at: [facility], [place], [place] [id number] Critical Care Nurse: ROCK Link MD, Phone: [phone] BC neg Objective Assessment 1. Sepsis with hypotension, requiring vasopressor support. 2. Lactic acidosis. 3. Pyuria. She was recently treated for urinary tract infection with cefepime. 4. Leukocytosis, improving. 5. 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 6. History of Clostridium difficile colitis in December 2018. 7. Progressive multiple sclerosis. 8. Chronic obstructive pulmonary disease. 9. Severe malnutrition. 10. Factor V Leiden. 11. History of methicillin-resistant Staphylococcus aureus, vancomycin resistant Enterococcus and multidrug-resistant organisms type infection. Plan Plan of Care Continue vancomycin and Zosyn po vanc prophylactically w/ recent history of C. diff f/u cultures Monitor labs/renal function closely wound care team consulted Offload x ray reviewed, free air under diaphragm, though abd is non distended, not tender and pt does not have any abd pain, will get CT d/w Dr Frankel D/w nursing ROSEMARY THOMAS MD March 10, 2019 09:02
[2019-03-10] MEDS: ALPRAZolam 0.5 MG TABLET PO SCH (09:04)
[2019-03-10] MEDS: LACTOBACILLUS RHAMNOSUS GG 1 CAPSULE. PO SCH ×2 (10:11→21:01)
[2019-03-10] MEDS: METHYL SALICYLATE/MENTHOL TOPICAL OINTMENT 29GM TUBE. TP SCH ×4 (10:11→21:02)
[2019-03-10] MEDS: DULoxetine HCL 30 MG CAPSULE.DR PO SCH (10:11)
[2019-03-10] MEDS: BACLOFEN 10 MG TABLET. PO SCH ×4 (10:11→21:01)
[2019-03-10] MEDS: CETIRIZINE HCL 10 MG TABLET. PO SCH (10:11)
[2019-03-10] MEDS: NYSTATIN 100,000 UNITS/ML 5 ML ORAL.SUSP. SWSW SCH ×3 (10:11→21:02)
[2019-03-10] MEDS: CHOLECALCIFEROL (VITAMIN D3) 1,000 UNIT TABLET PO SCH (10:12)
[2019-03-10] MEDS: FERROUS SULFATE 325 MG TABLET. PO SCH (10:12)
[2019-03-10] MEDS: MULTIVITAMIN with MINERAL TABLET. PO SCH (10:12)
[2019-03-10] MEDS: OXYBUTYNIN CHLORIDE 5 MG TABLET PO SCH ×3 (10:12→21:01)
[2019-03-10] MEDS: APIXABAN 5 MG TABLET. PO SCH ×2 (10:12→21:01)
[2019-03-10] MEDS: DANTROLENE SODIUM 25 MG CAPSULE PO SCH ×3 (10:12→21:01)
[2019-03-10] MEDS: FAMOTIDINE 20 MG TABLET. PO SCH ×2 (10:12→21:01)
[2019-03-10] MEDS: POTASSIUM CHLORIDE 20 MEQ/15 ML ORAL LIQUID. PO SCH ×2 (10:13→12:00)
[2019-03-10] MEDS: VANCOMYCIN 125 MG/2.5 ML ORAL SOLUTION. PO SCH ×2 (10:17→21:02)
[2019-03-10] MEDS: ACETAMINOPHEN 325 MG TABLET. PO PRN (10:36)
[2019-03-10] MEDS: VANCOMYCIN PER PHARMACY MC PRN (11:10)
--- NOTE | 2019-03-10 11:12 | RAD ---
CT of the abdomen and pelvis without contrast, 03/10/2019: HISTORY: Possible free air in the abdomen Noncontrast scans were obtained as requested. Comparison is made to a study from 12/29/2018. Artifacts arising from the patient's arms degrade image quality. There is a trace amount of left-sided pleural fluid with minimal underlying atelectasis/infiltrate in the left base. The unopacified liver is unremarkable. A dense gallstone is present in the gallbladder. No pericholecystic edema is seen. The pancreas cannot be clearly from unopacified bowel but shows no specific abnormality. The spleen is at the upper limits of normal in size. The unopacified kidneys show no abnormality. There is moderate calcific plaquing of the abdominal aorta without evidence of aneurysm. No abdominal or pelvic adenopathy is seen. A Shafer catheter is present within the collapsed urinary bladder. A coarse calcification in the left pelvis is probably related to an atrophic uterus. The colon is redundant and now extends along the anterior aspect of the liver up beneath the right hemidiaphragm producing the appearance of free air seen on the recent chest radiograph. No true free air is present in the abdomen. There is contrast material in the right colon, apparently from the patient's recent video dysphagia study. The bowel loops are not dilated. A portion of the appendix is visualized and it is unremarkable. No free fluid is present in the abdomen. Mild scattered degenerative changes are present in the spine. There is subcutaneous edema in the flank and gluteal regions IMPRESSION: 1. The colon extends up beneath the right hemidiaphragm as described above. No pneumoperitoneum is present. 2. Cholelithiasis. 3. Minimal left basilar atelectasis/infiltrate with a trace amount of left-sided pleural fluid. 4. Additional chronic findings as described above. PQRS Compliance Statement One or more of the following individualized dose reduction techniques were utilized for this examination: 1. Automated exposure control 2. Adjustment of the mA and/or kV according to patient size 3. Use of iterative reconstruction technique Electronically signed by: Chandra Forte MD (03/10/2019 11:09 AM) [facility]
--- NOTE | 2019-03-10 12:26 | PDOC ---
CARDIO Progress Notes Date and Time Date of Service 03/10/2019 Time of Evaluation 1200 Subjective Subjective: No Chest Pain, No shortness of breath, Other (liomited verbal response but answers to closed ended questions and tracking with eyes) Vitals Vitals Vital Signs Date Time Temp Pulse Resp B/P (MAP) Pulse Ox O2 Delivery O2 Flow Rate FiO2 03/10/19 12:08 97 Nasal Cannula 4.5 03/10/19 11:00 100 22 107/69 (82) 03/10/19 08:00 99.4 99.4 Weight Weight [ ] Input and Output Intake and Output Intake and Output 03/10/19 06:59 Intake Total 4259.69 ml Output Total 2430 ml Balance 1829.69 ml Intake Oral 450 ml IV Total 3809.69 ml Output Urine Total 2430 ml Laboratory Labs Laboratory Tests Test 03/10/19 05:45 White Blood Count 15.0 x10^3/uL (4.0-11.0) Red Blood Count 4.61 x10^6/uL (3.50-5.40) Hemoglobin 10.0 g/dL (12.0-15.5) Hematocrit 31.6 % (36.0-47.0) Mean Corpuscular Volume 69 fL (79-100) Mean Corpuscular Hemoglobin 22 pg (25-35) Mean Corpuscular Hemoglobin Concent 32 g/dL (31-37) Red Cell Distribution Width 19.5 % (11.5-14.5) Platelet Count 550 x10^3/uL (140-400) Neutrophils (%) (Auto) 89 % (31-73) Lymphocytes (%) (Auto) 5 % (24-48) Monocytes (%) (Auto) 4 % (0-9) Eosinophils (%) (Auto) 2 % (0-3) Basophils (%) (Auto) 1 % (0-3) Neutrophils # (Auto) 13.3 x10^3uL (1.8-7.7) Lymphocytes # (Auto) 0.7 x10^3/uL (1.0-4.8) Monocytes # (Auto) 0.7 x10^3/uL (0.0-1.1) Eosinophils # (Auto) 0.2 x10^3/uL (0.0-0.7) Basophils # (Auto) 0.1 x10^3/uL (0.0-0.2) Sodium Level 138 mmol/L (136-145) Potassium Level 4.6 mmol/L (3.5-5.1) Chloride Level 103 mmol/L (98-107) Carbon Dioxide Level 25 mmol/L (21-32) Anion Gap 10 (6-14) Blood Urea Nitrogen 3 mg/dL (7-20) Creatinine 0.6 mg/dL (0.6-1.0) Estimated GFR (Cockcroft-Gault) 108.1 Glucose Level 97 mg/dL (70-99) Calcium Level 8.3 mg/dL (8.5-10.1) Magnesium Level 1.8 mg/dL (1.8-2.4) Thyroid Stimulating Hormone (TSH) 1.807 uIU/mL (0.358-3.74) Microbiology Micro Microbiology 03/04/19 Blood Culture - Final, Complete NO GROWTH AFTER 5 DAYS 03/04/19 Urine Culture - Final, Complete 03/04/19 Urine Culture Result 1 ([place]) - Final, Complete Physical Exam HEENT: Neck Supple W Full Motion Chest: Symmetric LUNGS: Other (diminished bases) Heart: RRR (SR) Abdomen: Soft N/T Extremities: No Calf Tenderness, Other (contracted LE and hands) Neurology: alert, follow commands Assessment Assessment 1. Sepsis/shock/UTI: with hx of multidrug resistant infections 2. Arrhythmia: SVT which is likely induced by above slowed and noted with AFIB and noted with 2 episodes type 2 mobitz potentially vagally induced and with digoxin use. Burst or brief SVT otherwise maintain SR 3. Multiple sclerosis 4. Hx of DVT/PE per chart review 5. COPD 6. Chronic debility with extremity contractures 7. Hx of Factor V Leiden. 8. Protein malnutrition Recommendations 1. Off levophed, BP better but low marginal. Lopressor IV PRN and eventually bud paul on low dose routine BB once BP is more adequate. Antibiotics per ID 2. Currently on eliquis. 3. Supportive care KHADIJAH DUTTA [employer] March 10, 2019 12:26
[2019-03-10] MEDS ORDERED: METOPROLOL TARTRATE 5 MG/5 ML VIAL. IVP PRN (12:30)
[2019-03-10] MEDS: ANTI-COAG MONITOR BY PHARMACY. MC PRN (14:16)
--- NOTE | 2019-03-10 23:55 | PN ---
DATE: 03/10/2019 SUBJECTIVE: The patient is resting slightly propped up in bed, seems to be very lethargic, arousable. She is off the Levophed. She has had chest x-ray just done now, showed some free air in the diaphragm; however, her abdomen is soft and benign. PHYSICAL EXAMINATION: GENERAL: When I examined her, she looked well and was clearly in no apparent respiratory distress, pale, cachectic, but no jaundice, cyanosis, or thyromegaly. No jugular venous distension. No lower limb edema. VITAL SIGNS: Her heart rate was 120, blood pressure 105/70, temperature was 99.9, respiratory rate was 18 and oxygen saturation was 95%. HEAD, EYES, EARS, NOSE AND THROAT: Normocephalic, atraumatic. NECK: Supple. HEART: Showed normal first and second sounds. No gallop, rub or murmur. CHEST: Clear to auscultation. No crepitation or rhonchi. ABDOMEN: Scaphoid, soft, nontender. There is no guarding or rigidity. No organomegaly. All hernial orifices intact. Bowel sounds normal. NEUROLOGIC: She was very lethargic, confused. All her cranial nerves are intact. She moves upper extremities; however, she has longstanding multiple sclerosis with functional paraplegia and suprapubic catheter in place. Her intake over the last 24 hours was 3150, output was 4365. LABORATORY DATA: As of this morning, her white cell count is up to 15,000, hemoglobin 10, hematocrit 32, MCV 69, and platelet count 550,000. Her chemistry showed serum sodium 138, potassium 4.6, chloride 103, bicarbonate 25, anion gap of 10, BUN 3, creatinine 0.6, estimated GFR was 108 mL per minute. Her glucose was 97, calcium was 8.3, magnesium was 1.8. TSH was normal. So far, her urine culture is negative as well as her blood culture is negative. ASSESSMENT AND PLAN: 1. Sepsis with unclear source and she did grow actually more than 100,000 colony forming units per mL of mixed urogenital sohan. Blood culture so far showed no growth after 5 days. 2. Mental status has changed. She has more confused today, lethargic and her white cell count is going up from 9000 to 15,000. 3. The patient has multiple medical problems including: a. Longstanding progressive multiple sclerosis, functional paraplegia, neurogenic bladder requiring suprapubic catheter. b. Large stage 4 sacral decubitus ulcer. c. Factor V Leiden mutation for which she is on Xarelto, although the patient herself has never had any history of deep vein thrombosis, pulmonary embolism. d. Chronic obstructive pulmonary disease. e. Severe protein-calorie malnutrition. f. Previous episode of Clostridium difficile colitis. g. Hypokalemia, resolved. Her potassium is up to 4.8. h. Recurrent episode of supraventricular tachycardia, responded to adenosine and digoxin. We did consult Cardiology team for evaluation and treatment. She did have an echocardiogram done, which showed that her left ventricular systolic function is normal, ejection fraction was 55-60%, normal left ventricular segmental wall motion. Transmitral Doppler flow pattern is grade 2 pseudonormal filling the dynamics. Doppler and color flow revealed trace tricuspid regurgitation. Pulmonary artery pressure was estimated at 27 mmHg and there is no evidence of significant pericardial effusion. The Cardiology team recommended digoxin as needed. Her potassium, magnesium and thyroid function are all normal. YOLI MEJIA MD DR: JUJU/ronit JOB#: [id number] / [id number]
[2019-03-11] VITALS (23 sets, daily range): BP systolic 79–117; BP diastolic 48–71
[2019-03-11] MEDS: VANCOMYCIN 1 GM in IV NORMAL SALINE 250ML 250 ML IV SCH ×2 (01:35→12:22)
[2019-03-11] MEDS: POTASSIUM CL 40MEQ D5-0.45NACL 1,000 ML IV SCH ×3 (04:48→21:05)
[2019-03-11] MEDS: PIPERACILLIN/TAZOBACTAM 3.375 GM in IV NORMAL SALINE 50ML 50 ML IV SCH ×3 (05:35→17:08)
[2019-03-11] MEDS: ANTI-COAG MONITOR BY PHARMACY. MC PRN (07:58)
[2019-03-11] MEDS: VANCOMYCIN PER PHARMACY MC PRN (08:00)
[2019-03-11] MEDS: CHOLECALCIFEROL (VITAMIN D3) 1,000 UNIT TABLET PO SCH (08:58)
[2019-03-11] MEDS: NYSTATIN 100,000 UNITS/ML 5 ML ORAL.SUSP. SWSW SCH ×3 (08:58→21:02)
[2019-03-11] MEDS: NICOTINE 14MG PATCH. TD SCH (08:58)
[2019-03-11] MEDS: DANTROLENE SODIUM 25 MG CAPSULE PO SCH ×3 (08:59→21:03)
[2019-03-11] MEDS: BACLOFEN 10 MG TABLET. PO SCH ×4 (08:59→21:02)
[2019-03-11] MEDS: FAMOTIDINE 20 MG TABLET. PO SCH ×2 (08:59→21:02)
[2019-03-11] MEDS: LACTOBACILLUS RHAMNOSUS GG 1 CAPSULE. PO SCH ×2 (09:00→21:03)
[2019-03-11] MEDS: CETIRIZINE HCL 10 MG TABLET. PO SCH (09:00)
[2019-03-11] MEDS: OXYBUTYNIN CHLORIDE 5 MG TABLET PO SCH ×3 (09:00→21:03)
[2019-03-11] MEDS: METHYL SALICYLATE/MENTHOL TOPICAL OINTMENT 29GM TUBE. TP SCH ×4 (09:01→21:02)
[2019-03-11] MEDS: DULoxetine HCL 30 MG CAPSULE.DR PO SCH (09:01)
[2019-03-11] MEDS: APIXABAN 5 MG TABLET. PO SCH ×2 (09:01→21:03)
[2019-03-11] MEDS: VANCOMYCIN 125 MG/2.5 ML ORAL SOLUTION. PO SCH ×2 (09:02→21:03)
[2019-03-11 09:04] LABS: HEMATOCRIT 28.2 % (36.0-47.0); RED BLOOD COUNT 4.18 x10^6/uL (3.50-5.40); RED CELL DISTRIBUTION WIDTH 20.1 % (11.5-14.5); WHITE BLOOD COUNT 6.6 x10^3/uL (4.0-11.0)
[2019-03-11] MEDS: MULTIVITAMIN with MINERAL TABLET. PO SCH (09:04)
[2019-03-11] MEDS: FERROUS SULFATE 325 MG TABLET. PO SCH (09:04)
[2019-03-11] MEDS: IPRATRPIUM/ALBUTEROL 0.5/2.5MG 3 ML NEBU. NEB SCH ×3 (09:21→20:00)
[2019-03-11 09:22] LABS: CALCIUM 8.1 mg/dL (8.5-10.1); CREATININE 0.5 mg/dL (0.6-1.0); GFR 133.4; POTASSIUM 3.8 mmol/L (3.5-5.1)
--- NOTE | 2019-03-11 09:31 | PDOC ---
Infectious Disease Note Subjective Subjective Feeling alright Denies F/C/S/N/V/D Denies SOA/cough ROS ROS per HPI Vital Sign Vital Signs Vital Signs Date Time Temp Pulse Resp B/P (MAP) Pulse Ox O2 Delivery O2 Flow Rate FiO2 03/11/19 09:21 98 Nasal Cannula 4.0 03/11/19 06:00 110 21 117/65 (82) 03/11/19 04:00 99.4 99.4 Physical Exam PHYSICAL EXAM GENERAL: Alert, looks well HEENT: Pupils equally round. Normal conjunctivae. Oral cavity/pharynx pink and dry. LUNGS: Clear to auscultation. HEART: S1, S2. ABDOMEN: Soft, nontender with bowel sounds present. GENITOURINARY: Indwelling Shafer in place (03/04/2019). EXTREMITIES: No gross edema or cyanosis. Heel protectors in place. Contractu res. SKIN: Warm without rash. Large sacrococcygeal stage 4 pressure wound with bone probed. NEUROLOGIC: Alert, responding appropriately. RUE-PICC clean Labs Lab Laboratory Tests Test 03/11/19 08:50 White Blood Count 6.6 x10^3/uL (4.0-11.0) Red Blood Count 4.18 x10^6/uL (3.50-5.40) Hemoglobin 9.0 g/dL (12.0-15.5) Hematocrit 28.2 % (36.0-47.0) Mean Corpuscular Volume 67 fL (79-100) Mean Corpuscular Hemoglobin 22 pg (25-35) Mean Corpuscular Hemoglobin Concent 32 g/dL (31-37) Red Cell Distribution Width 20.1 % (11.5-14.5) Platelet Count 436 x10^3/uL (140-400) Sodium Level 138 mmol/L (136-145) Potassium Level 3.8 mmol/L (3.5-5.1) Chloride Level 104 mmol/L (98-107) Carbon Dioxide Level 25 mmol/L (21-32) Anion Gap 9 (6-14) Blood Urea Nitrogen 4 mg/dL (7-20) Creatinine 0.5 mg/dL (0.6-1.0) Estimated GFR (Cockcroft-Gault) 133.4 Glucose Level 98 mg/dL (70-99) Calcium Level 8.1 mg/dL (8.5-10.1) Magnesium Level 1.6 mg/dL (1.8-2.4) CT A/P . The colon extends up beneath the right hemidiaphragm as described above. No pneumoperitoneum is present. 2. Cholelithiasis. 3. Minimal left basilar atelectasis/infiltrate with a trace amount of left-sided pleural fluid. 4. Additional chronic findings as described above. Micro Microbiology 03/04/19 Blood Culture - Preliminary, Resulted NO GROWTH AFTER 1 DAY Objective Assessment Sepsis with hypotensive, on vasopressor support, better Lactic acidosis, Pyuria. Recently treated for UTI w/ Cefepime. 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 diff colitis 12/2018 Progressive MS COPD Severe malnutrition Factor V Leiden h/o MRSA, VRE and MDR infections Plan Plan of Care Continue vancomycin and Zosyn (since 03/05) Trough 13.7 Continue po vanc prophylactically w/ recent history of C. diff Monitor labs/renal function closely wound care team following Offload D/w nursing Patient seen, examined, I agree with above Assessment and plan as formulated by [employer]. AMY REESE APRN March 11, 2019 09:31 NAIN THOMAS MD March 11, 2019 12:14
[2019-03-11] MEDS ORDERED: MAGNESIUM SULFATE 2GM 50 ML IV ONE (10:15)
[2019-03-11] MEDS: POTASSIUM CHLORIDE 20 MEQ/15 ML ORAL LIQUID. PO SCH ×2 (12:23→17:07)
--- NOTE | 2019-03-11 13:40 | NUR ---
FACULTY CO-SIGN I have reviewed the documentation by Paul Hand nursing professor, [facility]: Addendum: 03/11/19 at 1340 by ERLINDA KLEIN RN Amended: Links added.
--- NOTE | 2019-03-11 17:00 | NUR ---
Patient transfer from [facility] room 261. Telephone report given to Jaqui Colby. Patient A/O x4 VS wnl, on 4 LNC. Patient belongings with patient at time of transfer.
[2019-03-11] MEDS: ALPRAZolam 0.5 MG TABLET PO SCH (21:02)
[2019-03-11] MEDS: oxyCODONE IR 5 MG TABLET PO PRN (21:04)
[2019-03-12] MEDS: PIPERACILLIN/TAZOBACTAM 3.375 GM in IV NORMAL SALINE 50ML 50 ML IV SCH ×4 (00:20→17:49)
[2019-03-12] MEDS: VANCOMYCIN 1 GM in IV NORMAL SALINE 250ML 250 ML IV SCH ×2 (01:00→13:27)
--- NOTE | 2019-03-12 01:10 | PN ---
DATE: 03/11/2019 SUBJECTIVE: The patient is resting slightly propped up in bed, in no apparent distress. She denies any complaint. The nursing staff stated that she has not eaten anything yesterday, although her urine output has been good. Did have a bowel movement. Has had her dressing changes of her sacrococcygeal decubitus ulcer. She is off the Levophed and has had no further episodes of SVTs. PHYSICAL EXAMINATION: GENERAL: When I examined her, she looked well and in no apparent respiratory distress, pale, cachectic, not jaundiced. No cyanosis or thyromegaly. No jugular venous distension. No lower limb edema. VITAL SIGNS: Her heart rate was 110, blood pressure was 117/65, temperature was 99.4, respiratory rate was 21 and oxygen saturation was 98% on 4 liters of oxygen. HEAD, EYES, EARS, NOSE AND THROAT: Showed normocephalic, atraumatic. NECK: Supple. HEART: Showed normal first and second heart sounds. No gallop, rub or murmur. CHEST: Clear to auscultation. No crepitation or rhonchi. ABDOMEN: Scaphoid, soft with suprapubic catheter in place. No guarding or rigidity. No organomegaly. All hernial orifices intact. Bowel sounds normal. NEUROLOGIC: She was sleepy, but arousable. All cranial nerves intact. She moves upper extremities to much good extent than lower extremities. She has longstanding multiple sclerosis with functional paraplegia, neurogenic bladder requiring indwelling Shafer catheter. SKIN: She has large stage 4 sacrococcygeal decubitus ulcer. Her intake was 4250, output was 2430. As of yesterday, her BUN was 3, creatinine 0.6, her serum sodium 138, potassium 4.6. So far, all her urine and blood cultures were negative. Her chest x-ray showed possible subdiaphragmatic free air; however, CT scan of the abdomen and pelvis showed that the colon extends up beneath the right hemidiaphragm and no pneumoperitoneum is present. Plan is to continue with nutritional support. Continue with IV fluid. Her potassium was replenished, as of yesterday was 4.6. ASSESSMENT: 1. Sepsis with unclear source. She did grow more than 100,000 colony forming units per mL of mixed urogenital sohan. Her blood cultures so far negative. 2. Mental status, has improved. Actually, she is more awake, alert today. 3. The patient has multiple other medical problems including: A. Longstanding progressive multiple sclerosis, functional paraplegia and neurogenic bladder requiring suprapubic catheter. B. Large stage 4 sacral decubitus ulcer. C. Factor V Leiden mutation for which she is on Xarelto, although the patient herself has never had any history of deep vein thrombosis or pulmonary embolism. D. Chronic obstructive pulmonary disease. E. Severe protein calorie malnutrition. F. Previous episodes of Clostridium difficile colitis. G. Hypokalemia that has resolved. Her potassium is up to 4.8. H. Recurrent episodes of ventricular tachycardia, responded to adenosine and digoxin. PLAN: Is to continue with IV fluid, continue with IV antibiotic. The patient can be transferred to CVICU. YOLI MEJIA MD DR: JUJU/ronit JOB#: [id number] / [id number]
[2019-03-12 03:40] VITALS: BP 96/64
[2019-03-12 05:14] LABS: BASO % 1 % (0-3); EOS # 0.1 x10^3/uL (0.0-0.7); EOS % 3 % (0-3); HEMATOCRIT 30.3 % (36.0-47.0); HEMOGLOBIN 9.6 g/dL (12.0-15.5); LYMPH # 1.3 x10^3/uL (1.0-4.8); LYMPH % 28 % (24-48); MEAN CORPUSCULAR HEMOGLOBIN 22 pg (25-35); MEAN CORPUSCULAR HGB CONC 32 g/dL (31-37); MEAN CORPUSCULAR VOLUME 69 fL (79-100); MONO # 0.4 x10^3/uL (0.0-1.1); MONO % 9 % (0-9); NEUT # 2.7 x10^3uL (1.8-7.7); NEUT % 59 % (31-73); PLATELET COUNT 389 x10^3/uL (140-400); RED BLOOD COUNT 4.39 x10^6/uL (3.50-5.40); RED CELL DISTRIBUTION WIDTH 19.7 % (11.5-14.5); WHITE BLOOD COUNT 4.6 x10^3/uL (4.0-11.0)
[2019-03-12 05:41] LABS: CALCIUM 7.9 mg/dL (8.5-10.1); CREATININE 0.5 mg/dL (0.6-1.0); GFR 133.4; MAGNESIUM 1.9 mg/dL (1.8-2.4); POTASSIUM 4.4 mmol/L (3.5-5.1)
[2019-03-12] MEDS: POTASSIUM CL 40MEQ D5-0.45NACL 1,000 ML IV SCH (05:49)
[2019-03-12 07:00] VITALS: BP 88/52
[2019-03-12] MEDS: LACTOBACILLUS RHAMNOSUS GG 1 CAPSULE. PO SCH ×2 (08:39→20:38)
[2019-03-12] MEDS: BACLOFEN 10 MG TABLET. PO SCH ×4 (08:39→20:39)
[2019-03-12] MEDS: NYSTATIN 100,000 UNITS/ML 5 ML ORAL.SUSP. SWSW SCH ×3 (08:40→20:39)
[2019-03-12] MEDS: CHOLECALCIFEROL (VITAMIN D3) 1,000 UNIT TABLET PO SCH (08:40)
[2019-03-12] MEDS: FERROUS SULFATE 325 MG TABLET. PO SCH (08:40)
[2019-03-12] MEDS: DULoxetine HCL 30 MG CAPSULE.DR PO SCH (08:40)
[2019-03-12] MEDS: MULTIVITAMIN with MINERAL TABLET. PO SCH (08:40)
[2019-03-12] MEDS: CETIRIZINE HCL 10 MG TABLET. PO SCH (08:40)
[2019-03-12] MEDS: APIXABAN 5 MG TABLET. PO SCH ×2 (08:40→20:39)
[2019-03-12] MEDS: POTASSIUM CHLORIDE 20 MEQ/15 ML ORAL LIQUID. PO SCH (08:41)
[2019-03-12] MEDS: FAMOTIDINE 20 MG TABLET. PO SCH ×2 (08:41→20:39)
[2019-03-12] MEDS: OXYBUTYNIN CHLORIDE 5 MG TABLET PO SCH ×3 (08:41→20:39)
[2019-03-12] MEDS: DANTROLENE SODIUM 25 MG CAPSULE PO SCH ×3 (08:42→20:37)
[2019-03-12] MEDS: METHYL SALICYLATE/MENTHOL TOPICAL OINTMENT 29GM TUBE. TP SCH ×4 (08:43→20:40)
[2019-03-12] MEDS: VANCOMYCIN 125 MG/2.5 ML ORAL SOLUTION. PO SCH ×2 (08:47→20:39)
[2019-03-12] MEDS: IPRATRPIUM/ALBUTEROL 0.5/2.5MG 3 ML NEBU. NEB SCH ×3 (09:01→20:38)
[2019-03-12] MEDS: POTASSIUM CHLORIDE 20 MEQ TABLET.ER. PO SCH ×3 (09:15→17:48)
[2019-03-12] MEDS ORDERED: NICOTINE 14MG PATCH. TD PRN (09:15)
--- NOTE | 2019-03-12 09:23 | PDOC ---
Infectious Disease Note Subjective Subjective Transferred out of ICU Feeling tired this morning Not very hungry Denies pain/SOA/upset stomach No fevers O2 4L NC ROS ROS per HPI Vital Sign Vital Signs Vital Signs Date Time Temp Pulse Resp B/P (MAP) Pulse Ox O2 Delivery O2 Flow Rate FiO2 03/12/19 09:02 97 Nasal Cannula 4.0 03/12/19 03:40 97.9 90 19 96/64 (75) 97.9 Physical Exam PHYSICAL EXAM GENERAL: Ling down, tired appearing HEENT: Pupils equally round. Normal conjunctivae. Oral cavity/pharynx pink and dry. Edentulous LUNGS: Clear to auscultation. HEART: S1, S2. ABDOMEN: Soft, nontender with bowel sounds present. GENITOURINARY: Indwelling Shafer in place (03/04/2019). EXTREMITIES: No gross edema or cyanosis. Heel protectors in place. Contractures. SKIN: Warm without rash. Large sacrococcygeal stage 4 pressure wound with bone probed. NEUROLOGIC: Awake, responding appropriately. E-PICC clean Labs Lab Laboratory Tests Test 03/12/19 04:00 White Blood Count 4.6 x10^3/uL (4.0-11.0) Red Blood Count 4.39 x10^6/uL (3.50-5.40) Hemoglobin 9.6 g/dL (12.0-15.5) Hematocrit 30.3 % (36.0-47.0) Mean Corpuscular Volume 69 fL (79-100) Mean Corpuscular Hemoglobin 22 pg (25-35) Mean Corpuscular Hemoglobin Concent 32 g/dL (31-37) Red Cell Distribution Width 19.7 % (11.5-14.5) Platelet Count 389 x10^3/uL (140-400) Neutrophils (%) (Auto) 59 % (31-73) Lymphocytes (%) (Auto) 28 % (24-48) Monocytes (%) (Auto) 9 % (0-9) Eosinophils (%) (Auto) 3 % (0-3) Basophils (%) (Auto) 1 % (0-3) Neutrophils # (Auto) 2.7 x10^3uL (1.8-7.7) Lymphocytes # (Auto) 1.3 x10^3/uL (1.0-4.8) Monocytes # (Auto) 0.4 x10^3/uL (0.0-1.1) Eosinophils # (Auto) 0.1 x10^3/uL (0.0-0.7) Basophils # (Auto) 0.0 x10^3/uL (0.0-0.2) Sodium Level 137 mmol/L (136-145) Potassium Level 4.4 mmol/L (3.5-5.1) Chloride Level 103 mmol/L (98-107) Carbon Dioxide Level 26 mmol/L (21-32) Anion Gap 8 (6-14) Blood Urea Nitrogen 3 mg/dL (7-20) Creatinine 0.5 mg/dL (0.6-1.0) Estimated GFR (Cockcroft-Gault) 133.4 Glucose Level 89 mg/dL (70-99) Calcium Level 7.9 mg/dL (8.5-10.1) Magnesium Level 1.9 mg/dL (1.8-2.4) Micro Microbiology 03/04/19 Blood Culture - Preliminary, Resulted NO GROWTH AFTER 1 DAY Objective Assessment Sepsis with hypotensive, off vasopressor support, better Lactic acidosis, Pyuria. Recently treated for UTI w/ Cefepime. 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 diff colitis 12/2018 Progressive MS COPD Severe malnutrition Factor V Leiden h/o MRSA, VRE and MDR infections Plan Plan of Care Continue vancomycin and Zosyn (since 03/05), wean soon Trough 13.7 Continue po vanc prophylactically w/ recent history of C. diff Monitor labs/renal function closely wound care team following Offload D/w nursing Patient seen, examined, I agree with above Assessment and plan formulated by [facility]. AMY REESE APRN March 12, 2019 09:23 NAIN THOMAS MD March 12, 2019 14:20
[2019-03-12] MEDS: ANTI-COAG MONITOR BY PHARMACY. MC PRN (10:26)
[2019-03-12] MEDS: VANCOMYCIN PER PHARMACY MC PRN (10:28)
[2019-03-12 11:00] VITALS: BP 83/54
[2019-03-12] MEDS: oxyCODONE IR 5 MG TABLET PO PRN ×2 (12:03→17:48)
[2019-03-12] MEDS: IV DEXTROSE 5 %-0.45 % NACL 1,000 ML IV SCH (12:04)
[2019-03-12 15:00] VITALS: BP 108/72
[2019-03-12 19:00] VITALS: BP 96/61
[2019-03-12] MEDS: ALPRAZolam 0.5 MG TABLET PO SCH (20:39)
[2019-03-12 22:54] VITALS: BP 97/57
[2019-03-13] VITALS (7 sets, daily range): BP systolic 78–116; BP diastolic 46–71
--- NOTE | 2019-03-13 00:01 | PN ---
DATE: 03/12/2019 SUBJECTIVE: The patient is resting slightly propped up in bed, no apparent distress. She is awake, alert. On questioning her, denied any complaint. The nursing staff did not voice any concern and she had an uneventful night. PHYSICAL EXAMINATION: GENERAL: When I examined her, she was pale, cachectic, but no jaundice, no cyanosis, no lymphadenopathy, no thyromegaly. No jugular venous distension. No lower limb edema. VITAL SIGNS: Her heart rate was 90, blood pressure was 96/64, temperature was 97.9, respiratory rate was 19 and oxygen saturation was 92% on 4 liters of oxygen. HEAD, EYES, EARS, NOSE AND THROAT: Showed normocephalic, atraumatic. NECK: Supple. HEART: Showed normal first and second sounds. No gallop, rub or murmur. CHEST: Clear to auscultation. No crepitation or rhonchi. ABDOMEN: Scaphoid, soft with suprapubic catheter in place. No guarding or rigidity. No organomegaly. All hernial orifice intact. Bowel sounds normal. NEUROLOGIC: She is awake, alert, responding appropriately. All cranial nerves intact. She moves all extremities; however, she has progressive longstanding multiple sclerosis with functional paraplegia and neurogenic bladder requiring suprapubic catheter. She has large stage 4 sacrococcygeal decubitus ulcer. Her intake was 2700, output was 2625. LABORATORY DATA: As of this morning, her serum sodium is 137, potassium 4.4, chloride 103, bicarbonate 26, anion gap of 8, BUN 3, creatinine 0.5, estimated GFR was 133 mL per minute. Her glucose was 89, calcium was 7.9, magnesium was 1.9. Her white cell count is down to 4600, hemoglobin 9.6, hematocrit 30, MCV 69, and platelet count 389,000. So far all her cultures are negative. ASSESSMENT: 1. Sepsis with unclear obvious source. She did grow more than 100,000 colony forming units per mL of mixed urogenital sohan. Her blood cultures are so far negative. 2. Altered mental status has improved. She is more awake, alert, responding appropriately. 3. The patient has multiple other medical problems including: a. Longstanding progressive multiple sclerosis with functional paraplegia and neurogenic bladder requiring suprapubic catheter. b. Large stage 4 sacral decubitus ulcer. c. Factor V Leiden mutation for which she is on Xarelto, although the patient herself has never had any history of deep vein thrombosis or pulmonary embolism. d. Chronic obstructive pulmonary disease. e. Severe protein-calorie malnutrition. f. Previous episodes of Clostridium difficile colitis. g. Hypokalemia that has resolved. Her most recent potassium is 4. h. Recurrent episode of supraventricular tachycardia responded to adenosine and digoxin. PLAN: To continue with IV antibiotic. Continue to increase ____. Continue wound care. I will switch her oral potassium from the liquid form to the tablet form. YOLI MEJIA MD DR: JUJU/ronit JOB#: [id number] / [id number]
[2019-03-13] MEDS: PIPERACILLIN/TAZOBACTAM 3.375 GM in IV NORMAL SALINE 50ML 50 ML IV SCH ×5 (00:06→23:22)
[2019-03-13] MEDS: VANCOMYCIN 1 GM in IV NORMAL SALINE 250ML 250 ML IV SCH (01:15)
[2019-03-13] MEDS: IV DEXTROSE 5 %-0.45 % NACL 1,000 ML IV SCH ×3 (01:15→23:23)
[2019-03-13] MEDS: ACETAMINOPHEN 325 MG TABLET. PO PRN (02:28)
[2019-03-13 06:16] LABS: CALCIUM 8.1 mg/dL (8.5-10.1); CREATININE 0.5 mg/dL (0.6-1.0); GFR 133.4; POTASSIUM 3.9 mmol/L (3.5-5.1)
[2019-03-13] MEDS: IPRATRPIUM/ALBUTEROL 0.5/2.5MG 3 ML NEBU. NEB SCH ×3 (08:10→19:47)
--- NOTE | 2019-03-13 08:35 | PDOC ---
Infectious Disease Note Subjective: Subjective She says doing ok has some headache, took tylenol Not very hungry Denies pain/SOA/upset stomach No fevers ROS: ROS Negative except for above. Vital Signs: Vital Signs Vital Signs Date Time Temp Pulse Resp B/P (MAP) Pulse Ox O2 Delivery O2 Flow Rate FiO2 03/13/19 08:18 83/50 (61) 03/13/19 08:11 95 Nasal Cannula 2.5 03/13/19 07:00 97.5 75 16 97.5 Physical Exam: PHYSICAL EXAM GENERAL: Ling down, tired appearing HEENT: Pupils equally round. Normal conjunctivae. Oral cavity/pharynx pink and dry. Edentulous LUNGS: Clear to auscultation. HEART: S1, S2. ABDOMEN: Soft, nontender with bowel sounds present. GENITOURINARY: Indwelling Shafer in place (03/04/2019). EXTREMITIES: No gross edema or cyanosis. Heel protectors in place. Contractures. SKIN: Warm without rash. Large sacrococcygeal stage 4 pressure wound with bone probed. NEUROLOGIC: Awake, responding appropriately. RUE-PICC clean Medications: Inpatient Meds: Current Medications Medications (Trade) Dose Ordered Sig/Amber Start Time Stop Time Status Last Admin Dose Admin Acetaminophen (Tylenol Supp) 650 mg 1X ONCE 03/04/19 10:15 03/04/19 10:16 DC 03/04/19 10:30 650 MG Acetaminophen (Tylenol) 650 mg PRN Q4HRS PRN 03/05/19 12:00 03/13/19 02:28 650 MG Adenosine (Adenocard) 6 mg 1X ONCE 03/09/19 18:00 03/09/19 18:02 DC 03/09/19 18:03 6 MG Albuterol/ Ipratropium (Duoneb) 3 ml TID@0800,1400,2000 03/05/19 14:00 03/13/19 08:10 3 ML Alprazolam (Xanax) 0.5 mg QHS 03/05/19 21:00 03/12/19 20:39 0.5 MG Apixaban (Eliquis) 5 mg BID 03/05/19 12:00 03/12/19 20:39 5 MG Baclofen (Lioresal) 20 mg QID 03/05/19 13:00 03/12/19 20:39 20 MG Barium Sulfate (Varibar Honey) 250 ml 1X ONCE 03/09/19 10:00 03/09/19 10:01 DC Barium Sulfate (Varibar Thin Liquid Apple) 148 gm 1X ONCE 03/09/19 10:15 03/09/19 10:16 DC 03/09/19 12:00 148 GM Cetirizine HCl (ZyrTEC) 10 mg DAILY 03/05/19 12:00 03/12/19 08:40 10 MG Dantrolene Sodium (Dantrium) 50 mg TID 03/05/19 21:00 03/12/19 20:37 50 MG Dextrose/Sodium Chloride 1,000 ml @ 75 mls/hr [id number] 03/12/19 09:15 03/13/19 01:15 75 MLS/HR Digoxin (Lanoxin) 250 mcg 1X ONCE 03/08/19 21:00 03/08/19 21:01 DC 03/08/19 20:49 250 MCG Duloxetine HCl (Cymbalta) 30 mg DAILY 03/05/19 12:00 03/12/19 08:40 30 MG Famotidine (Pepcid) 20 mg BID 03/05/19 12:00 03/12/19 20:39 20 MG Ferrous Sulfate (Feosol) 325 mg DAILY 03/05/19 12:00 03/12/19 08:40 325 MG Guaifenesin (Mucinex) 600 mg BID 03/05/19 12:00 03/12/19 20:38 600 MG Info (Anti-Coagulation Monitoring By Pharmacy) 1 each PRN DAILY PRN 03/06/19 08:00 03/12/19 10:26 1 EACH Lactobacillus Rhamnosus (Culturelle) 2 cap BID 03/05/19 13:00 03/12/19 20:38 2 CAP Levofloxacin/ Dextrose 150 ml @ 100 mls/hr Q48H 03/06/19 11:00 03/06/19 11:00 DC Levofloxacin/ Dextrose (Levaquin Per Pharmacy) 1 each 1X ONCE 03/04/19 11:45 03/04/19 12:24 DC 03/04/19 11:45 1 EACH Lidocaine/Sodium Bicarbonate (Buffered Lidocaine 1%) 3 ml 1X ONCE 03/08/19 13:30 03/08/19 13:31 DC 03/08/19 13:26 4 ML Magnesium Sulfate 50 ml @ 25 mls/hr 1X ONCE 03/11/19 10:15 03/11/19 12:14 DC 03/11/19 10:18 25 MLS/HR Metoprolol Tartrate (Lopressor Vial) 5 mg PRN Q6HRS PRN 03/10/19 12:30 Multi-Ingredient Ointment (Analgesic [place]) 1 nani QID 03/05/19 13:00 03/12/19 20:40 1 NANI Multivitamins (Thera M Plus) 1 tab DAILY 03/05/19 13:00 03/12/19 08:40 1 TAB Nicotine (Nicoderm Cq 14mg) 1 patch PRN DAILY PRN 03/12/19 09:15 Norepinephrine Bitartrate 250 ml @ 1.875 mls/ hr CONT PRN 03/04/19 15:30 03/12/19 10:25 DC 03/08/19 17:48 7.5 MLS/HR Nystatin (Nystatin Oral Susp) 5 ml TID 03/05/19 14:00 03/12/19 17:48 5 ML Ondansetron HCl (Zofran Odt) 4 mg PRN Q8HRS PRN 03/05/19 12:00 Oxybutynin Chloride (Ditropan) 5 mg TID 03/05/19 14:00 03/12/19 20:39 5 MG Oxycodone HCl (Roxicodone) 7.5 mg PRN Q4HRS PRN 03/05/19 12:30 03/12/19 17:48 7.5 MG Piperacillin Sod/ Tazobactam Sod 3.375 gm/Sodium Chloride 50 ml @ 100 mls/hr Q6HRS 03/05/19 16:00 03/13/19 05:29 100 MLS/HR Polyethylene Glycol (miraLAX PACKET) 17 gm PRN DAILY PRN 03/06/19 09:00 03/10/19 13:29 17 GM Potassium Chloride/Dextrose/ Sod Cl 1,000 ml @ 100 mls/hr Q10H 03/09/19 09:00 03/12/19 09:06 DC 03/12/19 05:49 100 MLS/HR Potassium Chloride (KCl Oral Soln) 20 meq TIDWMEALS 03/11/19 12:00 03/12/19 09:03 DC 03/12/19 08:41 20 MEQ Potassium Chloride (Klor-Con) 20 meq TIDWMEALS 03/12/19 09:15 03/12/19 17:48 20 MEQ Senna/Docusate Sodium (Senna Plus) 1 tab PRN BID PRN 03/05/19 12:00 03/10/19 13:29 1 TAB Sodium Chloride 500 ml @ 500 mls/hr 1X ONCE 03/08/19 17:45 03/08/19 18:44 DC 03/08/19 17:45 500 MLS/HR Vancomycin HCl (Vanco Per Pharmacy) 1 each PRN DAILY PRN 03/06/19 07:45 03/12/19 10:28 1 EACH Vancomycin HCl (Vancomycin Trough Level) 1 each 1X ONCE 03/08/19 00:30 03/08/19 00:31 DC 03/08/19 00:30 1 EACH Vancomycin HCl (Vancomycin Oral Solution) 125 mg BID 03/05/19 21:00 03/12/19 20:39 125 MG Vancomycin HCl 1.5 gm/Sodium Chloride 500 ml @ 250 mls/hr 1X ONCE 03/04/19 11:45 03/04/19 13:44 DC 03/04/19 12:23 250 MLS/HR Vancomycin HCl 1 gm/Sodium Chloride 250 ml @ 250 mls/hr Q12H 03/06/19 13:00 03/13/19 01:15 250 MLS/HR Vitamin D (Vitamin D3) 1,000 unit DAILY 03/05/19 12:00 03/12/19 08:40 1,000 UNIT Labs: Lab Laboratory Tests Test 03/13/19 05:55 Sodium Level 138 mmol/L (136-145) Potassium Level 3.9 mmol/L (3.5-5.1) Chloride Level 102 mmol/L (98-107) Carbon Dioxide Level 27 mmol/L (21-32) Anion Gap 9 (6-14) Blood Urea Nitrogen 4 mg/dL (7-20) Creatinine 0.5 mg/dL (0.6-1.0) Estimated GFR (Cockcroft-Gault) 133.4 Glucose Level 87 mg/dL (70-99) Calcium Level 8.1 mg/dL (8.5-10.1) Micro RUN DATE: 03/08/19 PAGE 1 RUN TIME: 1018 [facility] [address] [place] [address] Manny Coleman M.D., [employer] Mill [employer] PATIENT: LENNY EVERETT ACCT: [id number] LOC: 1 [facility] U: [id number] AGE/SX: 43/F ROOM: 114 RE03/04/[address]: YOLI MEJIA MD : 1975 BED: 1 DIS: STATUS: ADM IN TLOC: SPEC #: [id number] MARILU: 03/04/19 STATUS: COMP REQ #: [id number] RECD: 03/04/[address] [facility] [address]: BOZENA SAAB APRN SOURCE: VOID ENTR: 03/04/[address] [facility] [address]: VENTURA BRYAN MD SPDC: NON,STAFF ORDERED: URINE CULTURE Procedure Result URINE CULTURE Final Final report URINE CULTURE RES 1 Final Comment Mixed urogenital sohan Greater than 100,000 colony forming units per mL THIS IS AN UPDATED REPORT Performed at: - [facility] [address] [place] [address] [address], [place], [place] [id number] Neurodiagnostic Technician: ROCK Link MD, Phone: [phone] Objective: Assessment: Sepsis with hypotension,resolved Lactic acidosis, Pyuria. Recently treated for UTI w/ Cefepime. 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 diff colitis 12/2018 Progressive MS COPD Severe malnutrition Factor V Leiden h/o MRSA, VRE and MDR infections Plan: Plan of Care Continue Zosyn (since 03/05), DC IV Vanc Continue po vanc prophylactically w/ recent history of C. diff Monitor labs/renal function closely wound care team following Offload NAIN THOMAS MD March 13, 2019 08:35
--- NOTE | 2019-03-13 08:50 | NUR ---
IP: Pt is mrsa screen + requiring continued contact precautions.
[2019-03-13] MEDS: METHYL SALICYLATE/MENTHOL TOPICAL OINTMENT 29GM TUBE. TP SCH ×4 (09:00→20:47)
[2019-03-13] MEDS: BACLOFEN 10 MG TABLET. PO SCH ×4 (09:28→20:54)
[2019-03-13] MEDS: FAMOTIDINE 20 MG TABLET. PO SCH ×2 (09:28→20:45)
[2019-03-13] MEDS: APIXABAN 5 MG TABLET. PO SCH ×2 (09:28→20:45)
[2019-03-13] MEDS: OXYBUTYNIN CHLORIDE 5 MG TABLET PO SCH ×3 (09:30→20:45)
[2019-03-13] MEDS: DULoxetine HCL 30 MG CAPSULE.DR PO SCH (09:30)
[2019-03-13] MEDS: FERROUS SULFATE 325 MG TABLET. PO SCH (09:30)
[2019-03-13] MEDS: CETIRIZINE HCL 10 MG TABLET. PO SCH (09:30)
[2019-03-13] MEDS: POTASSIUM CHLORIDE 20 MEQ TABLET.ER. PO SCH ×3 (09:30→17:28)
[2019-03-13] MEDS: NYSTATIN 100,000 UNITS/ML 5 ML ORAL.SUSP. SWSW SCH ×3 (09:31→20:46)
[2019-03-13] MEDS: MULTIVITAMIN with MINERAL TABLET. PO SCH (09:31)
[2019-03-13] MEDS: LACTOBACILLUS RHAMNOSUS GG 1 CAPSULE. PO SCH ×2 (09:31→20:44)
[2019-03-13] MEDS: CHOLECALCIFEROL (VITAMIN D3) 1,000 UNIT TABLET PO SCH (09:31)
[2019-03-13] MEDS: VANCOMYCIN 125 MG/2.5 ML ORAL SOLUTION. PO SCH ×2 (09:32→20:46)
[2019-03-13] MEDS: DANTROLENE SODIUM 25 MG CAPSULE PO SCH ×3 (09:36→20:45)
--- NOTE | 2019-03-13 13:00 | NUR ---
SS following up with discharge planning. SS phoned and faxed clinical updates to [facility], ; fax [phone]. SS will continue to follow for discharge planning.
[2019-03-13] MEDS: oxyCODONE IR 5 MG TABLET PO PRN (15:00)
--- NOTE | 2019-03-13 15:18 | RAD ---
Portable chest, 03/13/2019: HISTORY: Follow-up pleural effusion Comparison is made to a study from 03/10/2019. A right PICC remains in place in satisfactory position. The heart size and pulmonary vascularity are normal. No significant infiltrate or definite pleural fluid is currently seen. There is no evidence of pneumothorax. Previously seen pneumoperitoneum has resolved. IMPRESSION: No acute cardiopulmonary abnormality is detected. Electronically signed by: Chandra Forte MD (03/13/2019 3:15 PM) [facility]
[2019-03-13] MEDS ORDERED: oxyCODONE ER 10 MG TAB.ER.12H PO SCH (16:00)
[2019-03-13] MEDS: ALPRAZolam 0.5 MG TABLET PO SCH (20:45)
[2019-03-13] MEDS: oxyCODONE ER 10 MG TAB.ER.12H PO SCH (20:46)
--- NOTE | 2019-03-14 01:46 | PN ---
DATE: 03/13/2019 SUBJECTIVE: The patient is resting, slightly propped up in bed, in no apparent distress. She is awake, alert. On questioning her, denied any complaint. The nursing staff did not voice any concern except that her blood pressure was in the lower side; however, she has longstanding multiple scleroses with quadriplegia and possibly autonomic dysreflexia. Her urine output is adequate, indicating that her tissues are well perfused. PHYSICAL EXAMINATION: GENERAL: When I examined her, she looked pale, cachectic, but no jaundice, cyanosis or thyromegaly. No jugular venous distension. No limb edema. VITAL SIGNS: Her heart rate was 75, blood pressure was 83/50, temperature was 97.5, respiratory rate was 16 and oxygen saturation was 95% on 2.5 liters of oxygen. HEAD, EYES, EARS, NOSE AND THROAT: Showed normocephalic and atraumatic. NECK: Supple. HEART: Showed normal first and second heart sounds. No gallop, rub or murmur. CHEST: Clear to auscultation. No crepitation or rhonchi. ABDOMEN: Distended, soft and nontender. No guarding or rigidity. No organomegaly. All hernial orifices intact. Bowel sounds normal. She has a suprapubic catheter in place. NEUROLOGICAL: She is awake, alert, responding appropriately. Cranial nerves intact. She has functional quadriplegia. She is unable to move her right upper extremity. She moves her left extremity slowly. She has quadriplegia with neurogenic bladder requiring suprapubic catheter. She has also large sacrococcygeal decubitus ulcer. Her intake over the last 24 hours was 4200, output was 5200. LABORATORY DATA: Her most recent lab work showed a white cell count 4600; hemoglobin 10; hematocrit 30; MCV 69 and platelet count 389,000. Serum sodium 138, potassium 3.9, chloride 102, bicarbonate 27, anion gap of 9, BUN 4, creatinine 0.5, estimated GFR was 133 mL per minute, glucose was 87 and calcium was 8.1. ASSESSMENT: 1. Sepsis with unclear source of infection. She did grow more than 100,000 colony forming units per mL of mixed urogenital sohan. Her blood culture is so far negative. 2. Altered mental status, improved. She is more awake, alert and responding appropriately. 3. The patient has multiple other medical problems including: A. Longstanding progressive multiple scleroses with functional quadriplegia and neurogenic bladder, requiring suprapubic catheter. B. Large stage 4 sacral decubitus ulcer. C. Factor V Leiden mutation, for which she is on Xarelto, although the patient herself has never had any history of deep vein thrombosis with pulmonary embolism. D. Chronic obstructive pulmonary disease. E. Severe protein-calorie malnutrition. F. Previous episodes with Clostridium difficile colitis. G. Hypokalemia that has resolved. Her most recent serum potassium is up to 3.8. H. Recurrent episode of supraventricular tachycardia responded to adenosine and digoxin. PLAN: Continue IV antibiotic. Continue with IV fluid. Continue with wound care. Monitor her electrolytes and replenish them as needed. YOLI MEJIA MD DR: JUJU/ronit JOB#: [id number] / [id number]
[2019-03-14 03:00] VITALS: BP 92/50
[2019-03-14] MEDS: IPRATRPIUM/ALBUTEROL 0.5/2.5MG 3 ML NEBU. NEB SCH ×3 (05:41→19:37)
[2019-03-14] MEDS: PIPERACILLIN/TAZOBACTAM 3.375 GM in IV NORMAL SALINE 50ML 50 ML IV SCH (06:07)
[2019-03-14 07:00] VITALS: BP 117/60
[2019-03-14] MEDS: BACLOFEN 10 MG TABLET. PO SCH ×4 (08:35→21:17)
[2019-03-14] MEDS: MULTIVITAMIN with MINERAL TABLET. PO SCH (08:35)
[2019-03-14] MEDS: NYSTATIN 100,000 UNITS/ML 5 ML ORAL.SUSP. SWSW SCH ×3 (08:35→21:17)
[2019-03-14] MEDS: VANCOMYCIN 125 MG/2.5 ML ORAL SOLUTION. PO SCH ×2 (08:35→21:18)
[2019-03-14] MEDS: APIXABAN 5 MG TABLET. PO SCH ×2 (08:36→21:17)
[2019-03-14] MEDS: FERROUS SULFATE 325 MG TABLET. PO SCH (08:36)
[2019-03-14] MEDS: DULoxetine HCL 30 MG CAPSULE.DR PO SCH (08:36)
[2019-03-14] MEDS: OXYBUTYNIN CHLORIDE 5 MG TABLET PO SCH ×3 (08:36→21:17)
[2019-03-14] MEDS: DANTROLENE SODIUM 25 MG CAPSULE PO SCH ×3 (08:36→21:18)
[2019-03-14] MEDS: POTASSIUM CHLORIDE 20 MEQ TABLET.ER. PO SCH ×3 (08:36→17:08)
[2019-03-14] MEDS: CETIRIZINE HCL 10 MG TABLET. PO SCH (08:36)
[2019-03-14] MEDS: CHOLECALCIFEROL (VITAMIN D3) 1,000 UNIT TABLET PO SCH (08:36)
[2019-03-14] MEDS: LACTOBACILLUS RHAMNOSUS GG 1 CAPSULE. PO SCH ×2 (08:36→21:17)
[2019-03-14] MEDS: FAMOTIDINE 20 MG TABLET. PO SCH ×2 (08:36→21:17)
[2019-03-14] MEDS: oxyCODONE ER 10 MG TAB.ER.12H PO SCH ×2 (08:37→21:18)
[2019-03-14] MEDS: METHYL SALICYLATE/MENTHOL TOPICAL OINTMENT 29GM TUBE. TP SCH ×4 (08:37→21:18)
--- NOTE | 2019-03-14 09:18 | PDOC ---
Infectious Disease Note Subjective: Subjective She says doing ok headache resolved Denies pain/SOA/upset stomach No fevers ROS: ROS Negative except for above. Vital Signs: Vital Signs Vital Signs Date Time Temp Pulse Resp B/P (MAP) Pulse Ox O2 Delivery O2 Flow Rate FiO2 03/14/19 08:37 Nasal Cannula 4.0 03/14/19 07:00 98.3 92 12 117/60 (79) 90 98.3 Physical Exam: PHYSICAL EXAM GENERAL: Ling down, tired appearing HEENT: Pupils equally round. Normal conjunctivae. Oral cavity/pharynx pink and dry. Edentulous LUNGS: Clear to auscultation. HEART: S1, S2. ABDOMEN: Soft, nontender with bowel sounds present. GENITOURINARY: Indwelling Shafer in place (03/04/2019). EXTREMITIES: No gross edema or cyanosis. Heel protectors in place. Contractures. SKIN: Warm without rash. Large sacrococcygeal stage 4 pressure wound with bone probed. NEUROLOGIC: Awake, responding appropriately. RUE-PICC clean Medications: Inpatient Meds: Current Medications Medications (Trade) Dose Ordered Sig/Amber Start Time Stop Time Status Last Admin Dose Admin Acetaminophen (Tylenol Supp) 650 mg 1X ONCE 03/04/19 10:15 03/04/19 10:16 DC 03/04/19 10:30 650 MG Acetaminophen (Tylenol) 650 mg PRN Q4HRS PRN 03/05/19 12:00 03/13/19 02:28 650 MG Adenosine (Adenocard) 6 mg 1X ONCE 03/09/19 18:00 03/09/19 18:02 DC 03/09/19 18:03 6 MG Albuterol/ Ipratropium (Duoneb) 3 ml TID@0800,1400,2000 03/05/19 14:00 03/14/19 05:41 3 ML Alprazolam (Xanax) 0.5 mg QHS 03/05/19 21:00 03/13/19 20:45 0.5 MG Apixaban (Eliquis) 5 mg BID 03/05/19 12:00 03/14/19 08:36 5 MG Baclofen (Lioresal) 20 mg QID 03/05/19 13:00 03/14/19 08:35 20 MG Barium Sulfate (Varibar Honey) 250 ml 1X ONCE 03/09/19 10:00 03/09/19 10:01 DC Barium Sulfate (Varibar Thin Liquid Apple) 148 gm 1X ONCE 03/09/19 10:15 03/09/19 10:16 DC 03/09/19 12:00 148 GM Cetirizine HCl (ZyrTEC) 10 mg DAILY 03/05/19 12:00 03/14/19 08:36 10 MG Dantrolene Sodium (Dantrium) 50 mg TID 03/05/19 21:00 03/14/19 08:36 50 MG Dextrose/Sodium Chloride 1,000 ml @ 75 mls/hr [id number] 03/12/19 09:15 03/13/19 23:23 75 MLS/HR Digoxin (Lanoxin) 250 mcg 1X ONCE 03/08/19 21:00 03/08/19 21:01 DC 03/08/19 20:49 250 MCG Duloxetine HCl (Cymbalta) 30 mg DAILY 03/05/19 12:00 03/14/19 08:36 30 MG Famotidine (Pepcid) 20 mg BID 03/05/19 12:00 03/14/19 08:36 20 MG Ferrous Sulfate (Feosol) 325 mg DAILY 03/05/19 12:00 03/14/19 08:36 325 MG Guaifenesin (Mucinex) 600 mg BID 03/05/19 12:00 03/14/19 08:36 600 MG Info (Anti-Coagulation Monitoring By Pharmacy) 1 each PRN DAILY PRN 03/06/19 08:00 03/12/19 10:26 1 EACH Lactobacillus Rhamnosus (Culturelle) 2 cap BID 03/05/19 13:00 03/14/19 08:36 2 CAP Levofloxacin/ Dextrose 150 ml @ 100 mls/hr Q48H 03/06/19 11:00 03/06/19 11:00 DC Levofloxacin/ Dextrose (Levaquin Per Pharmacy) 1 each 1X ONCE 03/04/19 11:45 03/04/19 12:24 DC 03/04/19 11:45 1 EACH Lidocaine/Sodium Bicarbonate (Buffered Lidocaine 1%) 3 ml 1X ONCE 03/08/19 13:30 03/08/19 13:31 DC 03/08/19 13:26 4 ML Magnesium Sulfate 50 ml @ 25 mls/hr 1X ONCE 03/11/19 10:15 03/11/19 12:14 DC 03/11/19 10:18 25 MLS/HR Metoprolol Tartrate (Lopressor Vial) 5 mg PRN Q6HRS PRN 03/10/19 12:30 Multi-Ingredient Ointment (Analgesic [place]) 1 nani QID 03/05/19 13:00 03/14/19 08:37 1 NANI Multivitamins (Thera M Plus) 1 tab DAILY 03/05/19 13:00 03/14/19 08:35 1 TAB Nicotine (Nicoderm Cq 14mg) 1 patch PRN DAILY PRN 03/12/19 09:15 Norepinephrine Bitartrate 250 ml @ 1.875 mls/ hr CONT PRN 03/04/19 15:30 03/12/19 10:25 DC 03/08/19 17:48 7.5 MLS/HR Nystatin (Nystatin Oral Susp) 5 ml TID 03/05/19 14:00 03/14/19 08:35 5 ML Ondansetron HCl (Zofran Odt) 4 mg PRN Q8HRS PRN 03/05/19 12:00 Oxybutynin Chloride (Ditropan) 5 mg TID 03/05/19 14:00 03/14/19 08:36 5 MG Oxycodone HCl (OxyCONTIN) 10 mg Q12HR 03/13/19 21:00 03/14/19 08:37 10 MG Oxycodone HCl (Roxicodone) 7.5 mg PRN Q4HRS PRN 03/05/19 12:30 03/13/19 15:00 7.5 MG Piperacillin Sod/ Tazobactam Sod 3.375 gm/Sodium Chloride 50 ml @ 100 mls/hr Q6HRS 03/05/19 16:00 03/14/19 06:07 100 MLS/HR Polyethylene Glycol (miraLAX PACKET) 17 gm PRN DAILY PRN 03/06/19 09:00 03/10/19 13:29 17 GM Potassium Chloride/Dextrose/ Sod Cl 1,000 ml @ 100 mls/hr Q10H 03/09/19 09:00 03/12/19 09:06 DC 03/12/19 05:49 100 MLS/HR Potassium Chloride (KCl Oral Soln) 20 meq TIDWMEALS 03/11/19 12:00 03/12/19 09:03 DC 03/12/19 08:41 20 MEQ Potassium Chloride (Klor-Con) 20 meq TIDWMEALS 03/12/19 09:15 03/14/19 08:36 20 MEQ Senna/Docusate Sodium (Senna Plus) 1 tab PRN BID PRN 03/05/19 12:00 03/10/19 13:29 1 TAB Sodium Chloride 500 ml @ 500 mls/hr 1X ONCE 03/08/19 17:45 03/08/19 18:44 DC 03/08/19 17:45 500 MLS/HR Vancomycin HCl (Vanco Per Pharmacy) 1 each PRN DAILY PRN 03/06/19 07:45 03/13/19 09:57 DC 03/12/19 10:28 1 EACH Vancomycin HCl (Vancomycin Trough Level) 1 each 1X ONCE 03/08/19 00:30 03/08/19 00:31 DC 03/08/19 00:30 1 EACH Vancomycin HCl (Vancomycin Oral Solution) 125 mg BID 03/05/19 21:00 03/14/19 08:35 125 MG Vancomycin HCl 1.5 gm/Sodium Chloride 500 ml @ 250 mls/hr 1X ONCE 03/04/19 11:45 03/04/19 13:44 DC 03/04/19 12:23 250 MLS/HR Vancomycin HCl 1 gm/Sodium Chloride 250 ml @ 250 mls/hr Q12H 03/06/19 13:00 03/13/19 09:57 DC 03/13/19 01:15 250 MLS/HR Vitamin D (Vitamin D3) 1,000 unit DAILY 03/05/19 12:00 03/14/19 08:36 1,000 UNIT Labs: Micro RUN DATE: 03/08/19 PAGE 1 RUN TIME: 1018 [facility] [address] [place] [address] Manny Coleman M.D., Equipment Hire Manager ------ PATIENT: LENNY EVERETT ACCT: [id number] LOC: 1 [facility] U: [id number] AGE/SX: 43/F ROOM: [facility] RE03/04/[address]: YOLI MEJIA MD : 1975 BED: 1 DIS: STATUS: ADM IN TLOC: SPEC #: [id number] MARILU: 03/04/19 STATUS: COMP REQ #: [id number] RECD: 03/04/[address]: BOZENA SAAB APRN SOURCE: VOID ENTR: 03/04/[address]: VENTURA BRYAN MD SPDESC: NON,STAFF ORDERED: URINE CULTURE Procedure Result URINE CULTURE Final Final report URINE CULTURE RES 1 Final Comment Mixed urogenital sohan Greater than 100,000 colony forming units per mL THIS IS AN UPDATED REPORT Performed at: DA - [facility] [address] [facility] [address], [place], [place] [id number] Steam Presser: ROCK Link MD, Phone: [phone] Objective: Assessment: Sepsis with hypotension,resolved,cult neg Lactic acidosis, resolved Pyuria. Recently treated for UTI w/ Cefepime. 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 diff colitis 12/2018 Progressive MS COPD Severe malnutrition Factor V Leiden h/o MRSA, VRE and MDR infections Plan: Plan of Care DC Zosyn ,start augmentin Off IV Vanc / Continue po vanc prophylactically w/ recent history of C. diff Monitor labs/renal function closely wound care team following Offload NAIN THOMAS MD March 14, 2019 09:18
[2019-03-14] MEDS: ANTI-COAG MONITOR BY PHARMACY. MC PRN (10:20)
[2019-03-14 11:00] VITALS: BP 100/55
[2019-03-14] MEDS: IV DEXTROSE 5 %-0.45 % NACL 1,000 ML IV SCH (11:18)
[2019-03-14] MEDS: AMOXICILLIN/K CLAV 875/125MG TABLET. PO SCH ×2 (13:01→21:17)
[2019-03-14] MEDS: oxyCODONE IR 5 MG TABLET PO PRN (13:11)
[2019-03-14 15:00] VITALS: BP 99/57
--- NOTE | 2019-03-14 17:01 | NUR ---
Wound care: Patient seen per wound care consult follow up. See wound assessment. Patient has stage IV pressure ulcer to coccyx. Patient is known to us from the wound clinic and previous admissions. Wound cleansed, assessed, pictured and measured for discharge tomorrow. Recommendations for Aquacel Ag to wound, then foam dressing, and tegaderm tape. Dressing applied and patient tolerated well. Patient repositioned in bed and turned to left side using wedge. Bilateral heels floated with heel medix boots. Call light in reach. Bed lowered. spoke with RN regarding POC. Dressing change instructions left in room. will follow patient regarding wound care.
[2019-03-14 19:00] VITALS: BP 104/59
--- NOTE | 2019-03-14 20:06 | NUR ---
Pt in bed assessment completed vss poc explained pt repositioned call light in reach.
--- NOTE | 2019-03-14 20:07 | PN ---
DATE: 03/14/2019 SUBJECTIVE: The patient is resting slightly propped up in bed, no apparent distress. Awake, alert. On questioning her, denied any complaint. The nursing staff did not voice any concern and stated that she has an uneventful night. PHYSICAL EXAMINATION: GENERAL: When I examined her, she looked pale, cachectic, no jaundice, cyanosis or thyromegaly. No jugular venous distention. No limb edema. VITAL SIGNS: Her heart rate was 92, blood pressure was 117/60, temperature was 98.3, respiratory rate was 12 and oxygen saturation was 90% on 4 liters oxygen. HEAD, EYES, EARS, NOSE AND THROAT: Showed normocephalic, atraumatic. NECK: Supple. HEART: Showed normal first and second sounds. No gallop or murmur. CHEST: Clear to auscultation. No crepitation or rhonchi. ABDOMEN: Scaphoid, soft, nontender. She has suprapubic catheter in place. NEUROLOGIC: He was awake, alert, responding appropriately. All her cranial nerves intact. She has quadriplegia due to longstanding progressive multiple sclerosis with neurogenic bladder requiring Shafer catheter. She has large sacrococcygeal decubitus ulcer. Her intake over the last 24 hours was 473 and output was 4500. LABORATORY DATA: Her most recent white cell count was 4600, hemoglobin 10, hematocrit 30, MCV 69, and platelet count of 389,000. Her chemistry as of yesterday showed a serum sodium of 138, potassium 3.9, chloride 102, bicarbonate 27, anion gap of 9, BUN 4, creatinine 0.5, estimated GFR was 133 mL per minute, his glucose was 87, calcium was 8.1. ASSESSMENT: 1. Sepsis with unclear source of infection. Her blood cultures so far negative and her urine culture showed growth of mixed urogenital sohan. 2. Altered mental status improved. She is now awake, alert, responding appropriately. 3. The patient has multiple other medical problems including: A. Longstanding progressive multiple sclerosis with functional quadriplegia and neurogenic bladder requiring suprapubic catheter noted to be large stage 4 sacral decubitus ulcer. B. Factor V Leiden mutation, for which she is on Xarelto, although the patient herself has never had any history of deep vein thrombosis, pulmonary embolism. C. Chronic obstructive pulmonary disease. D. Severe protein-calorie malnutrition. E. Previous episodes of Clostridium difficile colitis for which she was started on p.o. vancomycin. G. Hypokalemia has resolved. His most recent serum potassium is up to 3.8. F: Recurrent episode of supraventricular tachycardia responded to adenosine and digoxin. She has not had any further episodes and she was transferred from ICU. PLAN: To continue IV antibiotic, continue with IV fluid, continue with wound care. Continue to monitor electrolytes and replenish them as needed. YOLI MEJIA MD DR: JUJU/ronit JOB#: [id number] / [id number]
[2019-03-14] MEDS: ALPRAZolam 0.5 MG TABLET PO SCH (21:17)
[2019-03-14 23:59] VITALS: BP 99/57
[2019-03-15] MEDS: IV DEXTROSE 5 %-0.45 % NACL 1,000 ML IV SCH (00:22)
[2019-03-15 03:00] VITALS: BP 93/49
[2019-03-15 07:36] VITALS: BP 81/42
--- NOTE | 2019-03-15 07:43 | PDOC ---
Infectious Disease Note Subjective: Subjective She says doing ok headache resolved Denies pain/SOA/upset stomach No fevers ROS: ROS Negative except for above. Vital Signs: Vital Signs Vital Signs Date Time Temp Pulse Resp B/P (MAP) Pulse Ox O2 Delivery O2 Flow Rate FiO2 03/15/19 07:36 98.3 96 18 81/42 (55) 93 Nasal Cannula 4.0 98.3 Physical Exam: PHYSICAL EXAM GENERAL: Ling down, tired appearing HEENT: Pupils equally round. Normal conjunctivae. Oral cavity/pharynx pink and dry. Edentulous LUNGS: Clear to auscultation. HEART: S1, S2. ABDOMEN: Soft, nontender with bowel sounds present. GENITOURINARY: Indwelling Shafer in place (03/04/2019). EXTREMITIES: No gross edema or cyanosis. Heel protectors in place. Contractures. SKIN: Warm without rash. Large sacrococcygeal stage 4 pressure wound with bone probed. NEUROLOGIC: Awake, responding appropriately. RUE-PICC clean Medications: Inpatient Meds: Current Medications Medications (Trade) Dose Ordered Sig/Amber Start Time Stop Time Status Last Admin Dose Admin Acetaminophen (Tylenol Supp) 650 mg 1X ONCE 03/04/19 10:15 03/04/19 10:16 DC 03/04/19 10:30 650 MG Acetaminophen (Tylenol) 650 mg PRN Q4HRS PRN 03/05/19 12:00 03/13/19 02:28 650 MG Adenosine (Adenocard) 6 mg 1X ONCE 03/09/19 18:00 03/09/19 18:02 DC 03/09/19 18:03 6 MG Albuterol/ Ipratropium (Duoneb) 3 ml TID@0800,1400,2000 03/05/19 14:00 03/14/19 19:37 3 ML Alprazolam (Xanax) 0.5 mg QHS 03/05/19 21:00 03/14/19 21:17 0.5 MG Amoxicillin/ Clavulanate Potassium (Augmentin 875/ 125mg) 1 tab BID 03/14/19 12:00 03/14/19 21:17 1 TAB Apixaban (Eliquis) 5 mg BID 03/05/19 12:00 03/14/19 21:17 5 MG Baclofen (Lioresal) 20 mg QID 03/05/19 13:00 03/14/19 21:17 20 MG Barium Sulfate (Varibar Honey) 250 ml 1X ONCE 03/09/19 10:00 03/09/19 10:01 DC Barium Sulfate (Varibar Thin Liquid Apple) 148 gm 1X ONCE 03/09/19 10:15 03/09/19 10:16 DC 03/09/19 12:00 148 GM Cetirizine HCl (ZyrTEC) 10 mg DAILY 03/05/19 12:00 03/14/19 08:36 10 MG Dantrolene Sodium (Dantrium) 50 mg TID 03/05/19 21:00 03/14/19 21:18 50 MG Dextrose/Sodium Chloride 1,000 ml @ 75 mls/hr [id number] 03/12/19 09:15 03/15/19 00:22 75 MLS/HR Digoxin (Lanoxin) 250 mcg 1X ONCE 03/08/19 21:00 03/08/19 21:01 DC 03/08/19 20:49 250 MCG Duloxetine HCl (Cymbalta) 30 mg DAILY 03/05/19 12:00 03/14/19 08:36 30 MG Famotidine (Pepcid) 20 mg BID 03/05/19 12:00 03/14/19 21:17 20 MG Ferrous Sulfate (Feosol) 325 mg DAILY 03/05/19 12:00 03/14/19 08:36 325 MG Guaifenesin (Mucinex) 600 mg BID 03/05/19 12:00 03/14/19 21:17 600 MG Info (Anti-Coagulation Monitoring By Pharmacy) 1 each PRN DAILY PRN 03/06/19 08:00 03/14/19 10:20 1 EACH Lactobacillus Rhamnosus (Culturelle) 2 cap BID 03/05/19 13:00 03/14/19 21:17 2 CAP Levofloxacin/ Dextrose 150 ml @ 100 mls/hr Q48H 03/06/19 11:00 03/06/19 11:00 DC Levofloxacin/ Dextrose (Levaquin Per Pharmacy) 1 each 1X ONCE 03/04/19 11:45 03/04/19 12:24 DC 03/04/19 11:45 1 EACH Lidocaine/Sodium Bicarbonate (Buffered Lidocaine 1%) 3 ml 1X ONCE 03/08/19 13:30 5/1/19 13:31 DC 03/08/19 13:26 4 ML Magnesium Sulfate 50 ml @ 25 mls/hr 1X ONCE 03/11/19 10:15 03/11/19 12:14 DC 03/11/19 10:18 25 MLS/HR Metoprolol Tartrate (Lopressor Vial) 5 mg PRN Q6HRS PRN 03/10/19 12:30 Multi-Ingredient Ointment (Analgesic [place]) 1 nani QID 03/05/19 13:00 03/14/19 21:18 1 NANI Multivitamins (Thera M Plus) 1 tab DAILY 03/05/19 13:00 03/14/19 08:35 1 TAB Nicotine (Nicoderm Cq 14mg) 1 patch PRN DAILY PRN 03/12/19 09:15 Norepinephrine Bitartrate 250 ml @ 1.875 mls/ hr CONT PRN 03/04/19 15:30 03/12/19 10:25 DC 03/08/19 17:48 7.5 MLS/HR Nystatin (Nystatin Oral Susp) 5 ml TID 03/05/19 14:00 03/14/19 21:17 5 ML Ondansetron HCl (Zofran Odt) 4 mg PRN Q8HRS PRN 03/05/19 12:00 Oxybutynin Chloride (Ditropan) 5 mg TID 03/05/19 14:00 03/14/19 21:17 5 MG Oxycodone HCl (OxyCONTIN) 10 mg Q12HR 03/13/19 21:00 03/14/19 21:18 10 MG Oxycodone HCl (Roxicodone) 7.5 mg PRN Q4HRS PRN 03/05/19 12:30 03/14/19 13:11 7.5 MG Piperacillin Sod/ Tazobactam Sod 3.375 gm/Sodium Chloride 50 ml @ 100 mls/hr Q6HRS 03/05/19 16:00 03/14/19 09:48 DC 03/14/19 06:07 100 MLS/HR Polyethylene Glycol (miraLAX PACKET) 17 gm PRN DAILY PRN 03/06/19 09:00 03/10/19 13:29 17 GM Potassium Chloride/Dextrose/ Sod Cl 1,000 ml @ 100 mls/hr Q10H 03/09/19 09:00 03/12/19 09:06 DC 03/12/19 05:49 100 MLS/HR Potassium Chloride (KCl Oral Soln) 20 meq TIDWMEALS 03/11/19 12:00 03/12/19 09:03 DC 03/12/19 08:41 20 MEQ Potassium Chloride (Klor-Con) 20 meq TIDWMEALS 03/12/19 09:15 03/14/19 17:08 20 MEQ Senna/Docusate Sodium (Senna Plus) 1 tab PRN BID PRN 03/05/19 12:00 03/10/19 13:29 1 TAB Sodium Chloride 500 ml @ 500 mls/hr 1X ONCE 03/08/19 17:45 03/08/19 18:44 DC 03/08/19 17:45 500 MLS/HR Vancomycin HCl (Vanco Per Pharmacy) 1 each PRN DAILY PRN 03/06/19 07:45 03/13/19 09:57 DC 03/12/19 10:28 1 EACH Vancomycin HCl (Vancomycin Trough Level) 1 each 1X ONCE 03/08/19 00:30 03/08/19 00:31 DC 03/08/19 00:30 1 EACH Vancomycin HCl (Vancomycin Oral Solution) 125 mg BID 03/05/19 21:00 03/14/19 21:18 125 MG Vancomycin HCl 1.5 gm/Sodium Chloride 500 ml @ 250 mls/hr 1X ONCE 03/04/19 11:45 03/04/19 13:44 DC 03/04/19 12:23 250 MLS/HR Vancomycin HCl 1 gm/Sodium Chloride 250 ml @ 250 mls/hr Q12H 03/06/19 13:00 03/13/19 09:57 DC 03/13/19 01:15 250 MLS/HR Vitamin D (Vitamin D3) 1,000 unit DAILY 03/05/19 12:00 03/14/19 08:36 1,000 UNIT Labs: Micro RUN DATE: 03/08/19 PAGE 1 RUN TIME: 1018 [facility] [address] [place] [address] Manny Coleman M.D., [employer] PATIENT: LENNY EVERETT ACCT: [id number] LOC: 1 WEST ICU U: [id number] AGE/SX: 43/F ROOM: 114 RE03/04/[address]: YOLI MEJIA MD : 1975 BED: 1 DIS: STATUS: ADM IN TLOC: SPEC #: [id number] MARILU: 03/04/19 STATUS: COMP REQ #: [id number] RECD: 03/04/[address]: BOZENA SAAB APRN SOURCE: VOID ENTR: 03/04/[address] [facility] [address]: VENTURA BRYAN MD SPDESC: NON,STAFF ORDERED: URINE CULTURE Procedure Result ------- URINE CULTURE Final Final report URINE CULTURE RES 1 Final Comment Mixed urogenital sohan Greater than 100,000 colony forming units per mL THIS IS AN UPDATED REPORT Performed at: - [facility] [address] [facility] [address] [address] [facility] [address], [place], [place] [id number] Clinical Staff Pharmacist: ROCK Link MD, Phone: [phone] -- Objective: Assessment: Sepsis with hypotension,resolved,cult neg Lactic acidosis, resolved Pyuria. Recently treated for UTI w/ Cefepime. 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 diff colitis 12/2018 Progressive MS COPD Severe malnutrition Factor V Leiden h/o MRSA, VRE and MDR infections Plan: Plan of Care Cont augmentin for 5 more days OK to dc from id standpoint Continue po vanc prophylactically w/ recent history of C. diff for 14 more days wound care Offload D/W NAIN MCGRATH MD March 15, 2019 07:43
[2019-03-15] MEDS: IPRATRPIUM/ALBUTEROL 0.5/2.5MG 3 ML NEBU. NEB SCH ×2 (08:14→12:20)
[2019-03-15] MEDS: ANTI-COAG MONITOR BY PHARMACY. MC PRN (08:25)
[2019-03-15] MEDS: METHYL SALICYLATE/MENTHOL TOPICAL OINTMENT 29GM TUBE. TP SCH ×2 (09:00→13:00)
[2019-03-15] MEDS: DULoxetine HCL 30 MG CAPSULE.DR PO SCH (09:06)
[2019-03-15] MEDS: AMOXICILLIN/K CLAV 875/125MG TABLET. PO SCH (09:06)
[2019-03-15] MEDS: NYSTATIN 100,000 UNITS/ML 5 ML ORAL.SUSP. SWSW SCH ×2 (09:06→13:19)
[2019-03-15] MEDS: CHOLECALCIFEROL (VITAMIN D3) 1,000 UNIT TABLET PO SCH (09:07)
[2019-03-15] MEDS: MULTIVITAMIN with MINERAL TABLET. PO SCH (09:07)
[2019-03-15] MEDS: DANTROLENE SODIUM 25 MG CAPSULE PO SCH ×2 (09:07→13:19)
[2019-03-15] MEDS: OXYBUTYNIN CHLORIDE 5 MG TABLET PO SCH ×2 (09:07→13:19)
[2019-03-15] MEDS: FAMOTIDINE 20 MG TABLET. PO SCH (09:07)
[2019-03-15] MEDS: BACLOFEN 10 MG TABLET. PO SCH ×2 (09:07→13:19)
[2019-03-15] MEDS: APIXABAN 5 MG TABLET. PO SCH (09:07)
[2019-03-15] MEDS: LACTOBACILLUS RHAMNOSUS GG 1 CAPSULE. PO SCH (09:07)
[2019-03-15] MEDS: oxyCODONE ER 10 MG TAB.ER.12H PO SCH (09:08)
[2019-03-15] MEDS: CETIRIZINE HCL 10 MG TABLET. PO SCH (09:08)
[2019-03-15] MEDS: POTASSIUM CHLORIDE 20 MEQ TABLET.ER. PO SCH ×2 (09:08→13:19)
[2019-03-15] MEDS: FERROUS SULFATE 325 MG TABLET. PO SCH (09:08)
[2019-03-15] MEDS: VANCOMYCIN 125 MG/2.5 ML ORAL SOLUTION. PO SCH (09:15)
[2019-03-15] MEDS ORDERED: VANC125C3 PO (10:13)
[2019-03-15] MEDS ORDERED: AMOX1TAB61 PO (10:13)
--- NOTE | 2019-03-15 10:15 | SNU/HH DC ---
DISCHARGE ORDERS DISCHARGE INFORMATION: FINAL DIAGNOSIS Problems Medical Problems: (1) Decreased level of consciousness Status: Acute (2) Sepsis Status: Acute CONDITION ON DISCHARGE: Stable CODE STATUS: Code Status: Full PRISON: SNF STAY <30 DAYS: No POST DISCHARGE ORDERS: ACTIVITY ORDERS: Resume previous activity WEIGHT BEARING STATUS: As tolerated, Non weight bearing DIET AFTER DISCHARGE: Regular WOUND/INCISION CARE: Change dressing FOLLOW-UP: PHYSICIAN FOLLOW-UP: PCP ADDITIONAL FOLLOW-UP: WOUND CARE TEAM AT [facility] TREATMENT/EQUIPMENT ORDERS: ADAPTIVE EQUIPMENT NEEDED: None, Wheelchair Physical Therapy For: Evalulation/Treatment Occupational Therapy For: Evaluation/Treatment DISCHARGE MEDICATIONS: Home Meds Active Scripts Vancomycin Hcl (VANCOMYCIN HCL) 125 Mg Capsule, 125 MG PO QID for C DIFF for 14 Days, #56 CAP Prov:YOLI MEJIA MD 03/15/19 Amoxicillin/Potassium Clav (AUGMENTIN 875-125 TABLET) 1 Each Tablet, 1 TAB PO BID for UTI for 5 Days, #10 TAB Prov:YOLI MEJIA MD 03/15/19 Reported Medications Menthol (BIOFREEZE) 118 Ml Gel..ml., 118 ML TP QID for pain, EACH 03/04/19 Alprazolam (ALPRAZOLAM) 0.5 Mg Tablet, 0.5 MG PO PRN Q4HRS PRN for ANXIETY / AGITATION, TAB 0 Refills 03/04/19 Cholecalciferol (Vitamin D3) (VITAMIN D3) 1,000 Unit Tablet, 1 TAB PO DAILY for nutritional support, #30 TAB 5 Refills 12/30/18 Sennosides/Docusate Sodium (SENOKOT-S TABLET) 1 Each Tablet, 1 TAB PO PRN BID PRN for CONSTIPATION, #30 TAB 12/30/18 Potassium Chloride (POTASSIUM CHLORIDE) 20 Meq Tablet.er, 40 MEQ PO DAILY for nutritional supplement, TAB.SR 12/30/18 Oxycodone Hcl (OXYCODONE HCL) 5 Mg Capsule, 7.5 MG PO PRN Q4HRS PRN for PAIN, TAB 0 Refills 12/30/18 Oxybutynin Chloride (OXYBUTYNIN CHLORIDE) 5 Mg Tablet, 5 MG PO TID for overactive bladder, TAB 12/30/18 Ondansetron Hcl (ZOFRAN) 4 Mg Tablet, 1 TAB PO PRN Q4HRS PRN for NAUSEA/VOMITING, #20 TAB 12/30/18 Nystatin (NYSTATIN) 100,000 Unit/1 Ml Oral.susp, 5 ML PO TID for "nutritional supplement", #200 ML 12/30/18 Nicotine (NICODERM CQ 14mg) 1 Each Patch.td24, 1 PATCH TP DAILY for stop smoking, #14 PATCH 12/30/18 Multivitamin With Minerals (MULTIPLE VITAMIN) 1 Each Tablet, 1 EACH PO DAILY for nutritional supplement, TAB 12/30/18 Polyethylene Glycol 3350 (MIRALAX) 17 Gm Powd.pack, 1 PACKET PO PRN DAILY for Constipation, #30 PACKET 3 Refills 12/30/18 Loratadine (LORATADINE) 10 Mg Tablet, 1 TAB PO DAILY for allergies, #30 TAB 5 Refills 12/30/18 Lactobacillus Acidophilus (PROBIOTIC) 1 Each Capsule, 2 EACH PO BID for prophylaxis, CAP 12/30/18 Ipratropium/Albuterol Sulfate (DUONEB 0.5-3(2.5) MG/3 ML) 3 Ml Ampul.neb, 3 ML NEB TID for congestion, EACH 12/30/18 Guaifenesin (MUCINEX) 600 Mg Tablet.er, 1 TAB PO BID for cough; congestion, #14 TAB 12/30/18 Ferrous Sulfate (FERROUS SULFATE) 325 Mg Tablet, 325 MG PO DAILY for nutritional supplement, TAB 12/30/18 Famotidine (FAMOTIDINE) 20 Mg Tablet, 20 MG PO BID for Indigestion, TAB 12/30/18 Duloxetine Hcl (CYMBALTA) 30 Mg Capsule.dr, 30 MG PO DAILY for Depression, CAP 12/30/18 Dantrolene Sodium (DANTROLENE SODIUM) 50 Mg Capsule, 50 MG PO TID for Muscle spasms, CAP 12/30/18 Baclofen (BACLOFEN) 20 Mg Tablet, 20 MG PO QID for MUSCLE RELAXER, #30 TAB 0 Refills 12/30/18 Apixaban (ELIQUIS) 5 Mg Tablet, 5 MG PO BID for factor V, TAB 12/30/18 Alprazolam (ALPRAZOLAM) 0.5 Mg Tablet, 1 TAB PO HS for Anxiety, #30 TAB 12/30/18 Acetaminophen (TYLENOL) 325 Mg Tablet, 650 MG PO PRN Q4HRS PRN for MILD PAIN / TEMP, TAB 12/30/18 YOLI MEJIA MD March 15, 2019 10:15
--- NOTE | 2019-03-15 10:20 | NUR ---
SS following up with discharge planning. Discharge orders received for return to [facility], ; fax [phone]. SS phoned and faxed discharge orders to [facility]. Pt will discharge today and will return to [facility]. [facility] will notify SS once transportation has been arranged. Pt, pt's family, and pt's RN notified.
[2019-03-15 10:39] VITALS: BP 93/58
--- NOTE | 2019-03-15 11:59 | NUR ---
SS following up with discharge planning. SS contacted [facility] to inquire about transportation. [facility] reported that they could not provide transportation for pt and requested SS arrange. SS contacted [facility] ambulance and scheduled transportation for 1400. Pt's RN notified.
--- NOTE | 2019-03-15 14:00 | NUR ---
Report called to Cira at [facility], patient scheduled to be picked up at 1400 by EMS
[2019-03-15 14:31] VITALS: BP 94/52
--- NOTE | 2019-03-15 18:45 | DS ---
DATE OF DISCHARGE: 03/15/2019 HOSPITAL COURSE: The patient is a 43-year-old female patient, resident at [facility] in [place] who was admitted with severe sepsis; hypotension, severe; marked leukocytosis with a white cell count of 42,000. She was admitted to ICU, was started on Levophed, IV fluid and IV antibiotic and gradually did well. Initially, she was extremely encephalopathic and unresponsive. Her white cell count came down gradually from 42,000 down to 4600. She was seen in consultation by the Infectious Disease and was treated with IV Zosyn and vancomycin. She developed multiple episodes of paroxysmal supraventricular tachycardia, treated with adenosine and digoxin. She did have an echocardiogram done, which basically showed that her left ventricular systolic function is normal, ejection fraction is 55-60%. She has normal left ventricular segmental wall motion. Transmitral Doppler flow pattern is grade 2 pseudonormal filling dynamics. Doppler and color flow revealed trace tricuspid regurgitation. Her pulmonary artery pressure was 27 mm. There was no evidence of significant pericardial effusion. She was seen in consultation by the wound care team also and as she remained hemodynamically stable and afebrile, her encephalopathy has resolved, she is now more awake, alert, responding appropriately, she was able to eat and drink, a decision was made to discharge her back to [facility] to continue with oral Augmentin for 5 more days and also oral vancomycin for 14 days. PHYSICAL EXAMINATION: GENERAL: When I examined her today, she looked well and was clearly in no apparent respiratory distress, pale, somewhat cachectic. No jaundice, cyanosis, or thyromegaly. No jugular venous distension. No limb edema. VITAL SIGNS: Her heart rate was 96, blood pressure was 81/42, temperature was 98.3, respiratory rate was 18 and oxygen saturation was 94% on 4 liters of oxygen. HEAD, EYES, EARS, NOSE AND THROAT: Showed normocephalic, atraumatic. NECK: Supple. HEART: Showed normal first and second heart sounds. No gallop, rub or murmur. CHEST: Clear to auscultation. No crepitation or rhonchi. ABDOMEN: Distended, soft, nontender. NEUROLOGIC: She was awake, alert, responding appropriately. Cranial nerves intact. She has functional quadriplegia with neurogenic bladder requiring suprapubic catheter. SKIN: She has large stage 4 sacral decubitus ulcer. INTAKE AND OUTPUT: Her intake over the last 24 hours was 600, output was 1800. MOST RECENT LABORATORY WORK: Showed a white cell count 4600, hemoglobin 10, hematocrit 30, MCV 69, and platelet count 389,000. Her chemistry showed a serum sodium 138, potassium 3.9, chloride 102, bicarbonate 27, anion gap of 9, BUN 4, creatinine 0.5, estimated GFR was 153 mL per minute. Her glucose was 87, calcium was 8.1. DISCHARGE MEDICATIONS: She was discharged back to [facility] to continue on amoxicillin/clavulanic acid 875 mg twice a day for 5 more days and oral vancomycin 125 mg 4 times a day for 14 days. Should continue on acetaminophen 650 mg every 4 hours, alprazolam 0.5 mg at bedtime, alprazolam 0.5 mg p.o. q.4 hours as needed for anxiety, apixaban 5 mg twice a day, baclofen 20 mg 4 times a day, cholecalciferol 1000 International Units once a day, dantrolene 50 mg 3 times a day, duloxetine for Cymbalta 30 mg once a day, famotidine 20 mg twice a day, ferrous sulfate 325 mg once a day, Mucinex 600 mg twice a day, ipratropium bromide, albuterol sulfate 3 mL by nebulizer 3 times a day, Lactobacillus acidophilus 2 capsules twice a day, loratadine 10 mg once a day, Biofreeze applied topically 4 times a day, multivitamin with mineral 1 tablet once a day, Nicoderm patch 14 mg topically once a day, nystatin suspension swish and swallow 4 times a day, oxybutynin 5 mg 3 times a day, ondansetron for Zofran 4 mg every 4 hours and polyethylene glycol 17 grams daily p.r.n. for constipation, potassium 40 mEq daily and senna-S one capsule twice a day. She is also on oxycodone 7.5 mg every 4 hours as needed for pain. FINAL DISCHARGE DIAGNOSES: 1. Severe sepsis, unclear source of infection. Her blood cultures are so far negative and urine culture showed only growth of mixed urogenital sohan. 2. Altered mental status, improved. She is now awake, alert, responding appropriately. 3. The patient has multiple other medical problems including: A. Longstanding progressive multiple sclerosis with functional quadriplegia and neurogenic bladder requiring suprapubic catheter. B. Large stage 4 sacral decubitus ulcer. C. Factor V Leiden mutation, for which she is on Eliquis, although the patient herself has never had any history of deep vein thrombosis or pulmonary embolism. D. Chronic obstructive pulmonary disease. E. Severe protein calorie malnutrition. F. Multiple episodes of Clostridium difficile colitis. G. Recurrent episode of supraventricular tachycardia responded to adenosine and digoxin. YOLI MEJIA MD DR: JUJU/ronit JOB#: [id number] / [id number]
== END 2019-03-15 15:00 | disposition home or self-care (01) | DRG 871 ==
LOC: ER 10:53 → 1 WEST ICU 11:40 → 2 SOUTH 03-11 17:35
PROVIDERS: ADMIT Internal Medicine; ATTEND Internal Medicine
PROC: 02HV33Z Insertion of Infusion Device into Superior Vena Cava, Percutaneous Approach (ICD-10-PCS; principal; 2019-03-08)
PROC: B548ZZA Ultrasonography of Superior Vena Cava, Guidance (ICD-10-PCS; 2019-03-08)
DX: A41.9 Sepsis, unspecified organism (principal); L89.154 Pressure ulcer of sacral region, stage 4; E43 Unspecified severe protein-calorie malnutrition; R65.21 Severe sepsis with septic shock; R53.2 Functional quadriplegia; E87.2 Acidosis; D68.51 Activated protein C resistance; N39.0 Urinary tract infection, site not specified; I47.1 Supraventricular tachycardia; G93.40 Encephalopathy, unspecified; F41.9 Anxiety disorder, unspecified; F32.9 Major depressive disorder, single episode, unspecified; G35 Multiple sclerosis; F17.210 Nicotine dependence, cigarettes, uncomplicated; N31.9 Neuromuscular dysfunction of bladder, unspecified; E87.6 Hypokalemia; J44.9 Chronic obstructive pulmonary disease, unspecified; I48.0 Paroxysmal atrial fibrillation; R09.02 Hypoxemia; Z16.24 Resistance to multiple antibiotics; Z88.8 Allergy status to other drugs, medicaments and biological substances; Z74.01 Bed confinement status; Z87.440 Personal history of urinary (tract) infections; Z86.14 Personal history of Methicillin resistant Staphylococcus aureus infection; Z86.19 Personal history of other infectious and parasitic diseases; Z86.59 Personal history of other mental and behavioral disorders; Z86.718 Personal history of other venous thrombosis and embolism; Z86.711 Personal history of pulmonary embolism; Z79.01 Long term (current) use of anticoagulants; Z84.89 Family history of other specified conditions
CPT/HCPCS: 36415; 36569; 36600; 71045; 74176; 74230; 76937; 77001; 80048; 80053; 80202; 81001; 82805; 83605; 83735; 84443; 84484; 85007; 85025; 85027; 87040; 87086; 87641; 93005; 93306; 94640; 94760; 96361; 96365; 96367; C1751; C1892; J0153; J1160; J1956; J2543; J3370; J3475; J7030; J7040; J7042; J7050; J7620; 92526; 92610; 92611; 99285-25

== ENCOUNTER 2019-06-11 23:23 | Inpatient (IN) | payer MEDICARE, OTHER ==
[~2019-06-11] VITALS: Ht 165.1 cm; Wt 60.0 kg
[~2019-06-11 23:23] MED LIST changes: +AMOX1TAB61 PO; +DANT25CA PO; +DOXY100T PO; +LACT1TAB11 PO; +MENT118G TP; +MULT1TAB77 PO; +OXYC10TA57 PO; +OXYC1TAB15 PO; +SENN8.6T67 PO; +VANC125C3 PO
[2019-06-11] MEDS: IV NORMAL SALINE 1000ML BAG 1,000 ML IV SCH (23:45)
[2019-06-11] MEDS ORDERED: VANCOMYCIN PER PHARMACY MC PRN (23:45)
[2019-06-11] MEDS ORDERED: PIP/TAZO PER PHARMACY MC PRN (23:45)
[2019-06-11 23:52] LABS: BASO # 0.1 x10^3/uL (0.0-0.2); BASO % 0 % (0-3); EOS % 0 % (0-3); HEMATOCRIT 35.8 % (36.0-47.0); HEMOGLOBIN 11.2 g/dL (12.0-15.5); LYMPH # 1.2 x10^3/uL (1.0-4.8); LYMPH % 6 % (24-48); MEAN CORPUSCULAR HEMOGLOBIN 22 pg (25-35); MEAN CORPUSCULAR HGB CONC 31 g/dL (31-37); MEAN CORPUSCULAR VOLUME 70 fL (79-100); MONO # 1.4 x10^3/uL (0.0-1.1); MONO % 7 % (0-9); NEUT # 18.2 x10^3/uL (1.8-7.7); NEUT % 87 % (31-73); PLATELET COUNT 506 x10^3/uL (140-400); RED BLOOD COUNT 5.13 x10^6/uL (3.50-5.40); RED CELL DISTRIBUTION WIDTH 18.6 % (11.5-14.5); WHITE BLOOD COUNT 20.8 x10^3/uL (4.0-11.0)
[2019-06-12] VITALS (28 sets, daily range): BP systolic 80–118; BP diastolic 54–70
[2019-06-12 00:01] LABS: BILIRUBIN,URINE NEGATIVE (NEG); CLARITY,URINE CLOUDY; COLOR,URINE AMBER; NITRITE,URINE NEGATIVE (NEG); PH,URINE 7.5; PROTEIN,URINE 100 mg/dL (NEG-TRACE)
[2019-06-12 00:13] LABS: CALCIUM 8.9 mg/dL (8.5-10.1); CREATININE 0.6 mg/dL (0.6-1.0); GFR 108.1; POTASSIUM 4.4 mmol/L (3.5-5.1); PROTHROMBIN TIME PATIENT 18.9 SEC (11.7-14.0)
[2019-06-12 00:19] LABS: ALBUMIN 2.4 g/dL (3.4-5.0); ALBUMIN/GLOBULIN RATIO 0.6 (1.0-1.7); MAGNESIUM 1.7 mg/dL (1.8-2.4); TOTAL BILIRUBIN 0.5 mg/dL (0.2-1.0); TOTAL PROTEIN 6.5 g/dL (6.4-8.2)
[2019-06-12 00:20] LABS: AMORPHOUS SEDIMENT,UR PRESENT /HPF; BACTERIA,URINE MANY /HPF (0-FEW); RBC,URINE 0 /HPF (0-2); SQUAMOUS EPITHELIAL CELL,UR MANY /LPF; WBC,URINE TNTC /HPF (0-4)
[2019-06-12] MEDS: IV NORMAL SALINE 1000ML BAG 1,000 ML IV SCH ×3 (00:45→22:00)
[2019-06-12] MEDS ORDERED: PROCHLORPERAZINE 10 MG/2 ML VIAL. IV PRN (01:00)
[2019-06-12] MEDS ORDERED: PIPERACILLIN/TAZOBACTAM 3.375 GM in IV NORMAL SALINE 50ML 50 ML IV ONE (01:30)
[2019-06-12 01:39] LABS: % BANDS 2 % (0-9); % LYMPHS 6 % (24-48); % MONOS 7 % (0-10); % SEGS 85 % (35-66); PLT ESTIMATE INCREASED (ADEQUATE)
[2019-06-12] MEDS ORDERED: VANCOMYCIN 1.5 GM in IV NORMAL SALINE 500ML BAG 500 ML IV ONE (02:00)
--- NOTE | 2019-06-12 02:52 | PHYS DOC ---
Past Medical History Past Medical History: Other Additional Past Medical Histor: MS,FACTOR 5,WOUND ON COCCYX Past Surgical History: Other Additional Past Surgical Histo: DEBRIDMENT ON COCCYX Alcohol Use: None Drug Use: Marijuana Adult General Chief Complaint Chief Complaint: OTHER COMPLAINTS HPI HPI Patient is a 43 year old f biba from [facility] respiratory distress t 101.8 low sat in 70's recently here for pna has stage 4 pressure ulcer ms, bedbound full code hx limted by acuity ros limited by acuity of condition Current Medications Current Medications Current Medications Medications (Trade) Dose Ordered Sig/Amber Start Time Stop Time Status Last Admin Dose Admin Linezolid/Dextrose 300 ml @ 300 mls/hr Q12HR 06/12/19 01:30 06/12/19 02:08 300 MLS/HR Piperacillin Sod/ Tazobactam Sod (Zosyn Per Pharmacy) 1 each PRN DAILY PRN 06/11/19 23:45 Piperacillin Sod/ Tazobactam Sod 3.375 gm/Sodium Chloride 50 ml @ 100 mls/hr 1X ONCE 06/12/19 01:30 06/12/19 01:59 DC 06/12/19 01:30 100 MLS/HR Prochlorperazine Edisylate (Compazine) 10 mg PRN Q4HRS PRN 06/12/19 01:00 Sodium Chloride 1,000 ml @ 100 mls/hr Q10H 06/12/19 02:00 06/13/19 01:59 Vancomycin HCl (Vanco Per Pharmacy) 1 each PRN DAILY PRN 06/11/19 23:45 Cancel Vancomycin HCl 1.5 gm/Sodium Chloride 500 ml @ 250 mls/hr 1X ONCE 06/12/19 02:00 06/12/19 03:59 Cancel Allergies Allergies Allergies Coded Allergies Type Severity Reaction Last Updated Verified I S O L A T I O N *CONTACT* Allergy Unknown 01/02/19 Yes No Known Medication Allergies Allergy Unknown 04/28/17 Yes Physical Exam Physical Exam Constitutional:ill appearing HENT: Normocephalic, atraumatic, bilateral external ears normal, oropharynx dry no oral exudates, nose normal. [] Eyes: PERRLA, EOMI, conjunctiva normal, no discharge. [] Neck: Normal range of motion, no tenderness, supple, no stridor. [] Cardiovascular tachy regular no murmur res: diffuse coarse respiratory sounds worse on the right , lots of secretions moderate tachypnea, is protecting airway at this time. Abdomen: Bowel sounds normal, soft, no tenderness, no masses, no pulsatile masses. [] Skin:stage 4, partially visualized some granulation tissue no obvious pus drainage. Back:see abvoe Extremities:contractures noted, no definite trauma seen Neurologic: Alert and oriented X 3, able to follow commands open eyes and answer some questions Psychologicdifficult to assess Current Patient Data Vital Signs Vital Signs Date Time Temp Pulse Resp B/P (MAP) Pulse Ox O2 Delivery O2 Flow Rate FiO2 06/12/19 01:45 114 19 84/66 (72) 100 NonRebreather Mask 15.0 06/11/19 23:30 102.0 102.0 Lab Values Laboratory Tests Test 06/11/19 23:30 06/11/19 23:40 06/12/19 01:50 Urine Collection Type U cath Urine Color Fern Urine Clarity Cloudy Urine pH 7.5 Urine Specific [place] >=1.030 Urine Protein 100 mg/dL (NEG-TRACE) Urine Glucose (UA) Negative mg/dL (NEG) Urine Ketones (Stick) Trace mg/dL (NEG) Urine Blood Negative (NEG) Urine Nitrite Negative (NEG) Urine Bilirubin Negative (NEG) Urine Urobilinogen Dipstick 1.0 mg/dL (0.2 mg/dL) Urine Leukocyte Esterase Large (NEG) Urine RBC 0 /HPF (0-2) Urine WBC Tntc /HPF (0-4) Urine Squamous Epithelial Cells Many /LPF Urine Amorphous Sediment Present /HPF Urine Bacteria Many /HPF (0-FEW) Urine Mucus Mod /LPF White Blood Count 20.8 x10^3/uL (4.0-11.0) H Red Blood Count 5.13 x10^6/uL (3.50-5.40) Hemoglobin 11.2 g/dL (12.0-15.5) L Hematocrit 35.8 % (36.0-47.0) L Mean Corpuscular Volume 70 fL (79-100) L Mean Corpuscular Hemoglobin 22 pg (25-35) L Mean Corpuscular Hemoglobin Concent 31 g/dL (31-37) Red Cell Distribution Width 18.6 % (11.5-14.5) H Platelet Count 506 x10^3/uL (140-400) H Neutrophils (%) (Auto) 87 % (31-73) H Lymphocytes (%) (Auto) 6 % (24-48) L Monocytes (%) (Auto) 7 % (0-9) Eosinophils (%) (Auto) 0 % (0-3) Basophils (%) (Auto) 0 % (0-3) Neutrophils # (Auto) 18.2 x10^3/uL (1.8-7.7) H Lymphocytes # (Auto) 1.2 x10^3/uL (1.0-4.8) Monocytes # (Auto) 1.4 x10^3/uL (0.0-1.1) H Eosinophils # (Auto) 0.0 x10^3/uL (0.0-0.7) Basophils # (Auto) 0.1 x10^3/uL (0.0-0.2) Segmented Neutrophils % 85 % (35-66) H Band Neutrophils % 2 % (0-9) Lymphocytes % 6 % (24-48) L Monocytes % 7 % (0-10) Platelet Estimate Increased (ADEQUATE) Prothrombin Time 18.9 SEC (11.7-14.0) H Prothrombin Time INR 1.6 (0.8-1.1) H Sodium Level 138 mmol/L (136-145) Potassium Level 4.4 mmol/L (3.5-5.1) Chloride Level 100 mmol/L (98-107) Carbon Dioxide Level 22 mmol/L (21-32) Anion Gap 16 (6-14) H Blood Urea Nitrogen 12 mg/dL (7-20) Creatinine 0.6 mg/dL (0.6-1.0) Estimated GFR (Cockcroft-Gault) 108.1 BUN/Creatinine Ratio 20 (6-20) Glucose Level 164 mg/dL (70-99) H Lactic Acid Level 1.9 mmol/L (0.4-2.0) 2.8 mmol/L (0.4-2.0) H Calcium Level 8.9 mg/dL (8.5-10.1) Magnesium Level 1.7 mg/dL (1.8-2.4) L Total Bilirubin 0.5 mg/dL (0.2-1.0) Aspartate Amino Transferase (AST) 10 U/L (15-37) L Alanine Aminotransferase (ALT) 8 U/L (14-59) L Alkaline Phosphatase 58 U/L (46-116) Troponin I Quantitative < 0.017 ng/mL (0.000-0.055) TA-Ikc-A-Type Natriuretic Peptide 1037 pg/mL (0-124) H Total Protein 6.5 g/dL (6.4-8.2) Albumin 2.4 g/dL (3.4-5.0) L Albumin/Globulin Ratio 0.6 (1.0-1.7) L Lipase 40 U/L (73-393) L Procalcitonin 0.22 ng/mL (0.00-0.10) H Laboratory Tests 06/11/19 23:40 Laboratory Tests 06/11/19 23:40 EKG EKG [] Radiology/Procedures Radiology/Procedures [] Course & Med Decision Making Course & Med Decision Making Pertinent Labs and Imaging studies reviewed. (See chart for details) [] Critical care time was 35 minutes exclusive of procedures. for mgmt of hypotension, sepsis, acute hypoxemic resp failure 43 yo f known MS, pneumonia, MDR infection p/w fever respiratory distress hypoxia cxr shows rll pna, u/a shows possible uti but indwelling martini culture pending. lact 1.9 wbc elev ekg show sinus trach rate 149 rate related changes qtc 422, no stemi initial bp in 80's, map above 65 however. ordered fluid bolus, broad spectrum abx. repeat bp at 3 am after fluid bolus is 105/63 i d/w sarbjit plan to admit icu for iv fluids abx and close monitoring at this point in time oxygenation on NRB is adequate, pt protecting airway in ED, suctioned by RT with some improvement in oxygenation so i dont think we need any aggressive intervention for now. Dragon Disclaimer Dragon Disclaimer This electronic medical record was generated, in whole or in part, using a voice recognition dictation system. Departure Departure Impression: Primary Impression: Pneumonia Additional Impression: Sepsis Disposition: 09 ADMITTED INPATIENT Admitting Physician: Madi. Eisenberg Condition: GUARDED Referrals: NO PCP (PCP) Date and Time of Reassessment Date: May 24, 2019 Time: 02:03 Fluid Challenge Is the fluid challenge complet: Yes IBW Target Volume Used: No BMI > 30: No Vital Signs Vital Signs: Vital Signs Date Time Temp Pulse Resp B/P (MAP) Pulse Ox O2 Delivery O2 Flow Rate FiO2 06/12/19 01:45 114 19 84/66 (72) 100 NonRebreather Mask 15.0 06/11/19 23:30 102.0 102.0 Temperature Source: Rectal Respirations Respiratory Effort: Accessory muscles Respiratory Pattern: Tachypnea Cardiovascular Pulse Rhythm: Regular Heart: No rubs, clicks or gallop Lung Sounds Breath Sounds: Coarse Capillary Refil Capillary Refill: Rt Hand > 3 seconds Peripheral Pulse Pulse Location: Radial Pulse Strength: Normal (2+) Pulse Assessment Method: Monitor Integumentary Skin: Warm, Dry (resp effort imporved somehwat after fluids.) Skin Moisture: Clammy Skin Turgor: Normal Fingernail Color: WNL Problem Qualifiers EVON SINHA MD Jun 12, 2019 02:52
[2019-06-12] MEDS: PIPERACILLIN/TAZOBACTAM 3.375 GM in IV NORMAL SALINE 50ML 50 ML IV SCH ×3 (05:11→18:00)
[2019-06-12] MEDS: NOREPINEPHRIN 8MG/250ML PREMIX 250 ML IV PRN (05:13)
--- NOTE | 2019-06-12 05:45 | RAD ---
INDICATION: Fever COMPARISON: March 13, 2019 FINDINGS: Single view of chest obtained. Hazy opacity at the right lung most confluent at the right lower lung. There are some vertically oriented lines along the right lateral thorax. Cardiac silhouette is not enlarged. IMPRESSION: 1. Hazy opacity within the right lung most prominent at the right chest base. Could be secondary to atelectasis, infiltrate or aspiration. 2. Vertically oriented lines along the right lateral thorax. Could be secondary to skin folds but would obtain a follow-up chest x-ray to ensure this does not persist to ensure that none of these are secondary to a pleural line from pneumothorax given that a pleural line can have this appearance as well. Report called to the patient's floor at 5:40 AM on date of exam. Electronically signed by: Acosta Glaser MD (06/12/2019 5:42 AM) [facility]
--- NOTE | 2019-06-12 05:59 | HP ---
ADMIT DATE: 06/12/2019 HISTORY OF PRESENT ILLNESS: The patient is a 43-year-old female patient, resident at [facility] in [place], who was noted to be hypoxic, febrile with temperature of 102. Nursing staff contacted me yesterday afternoon and I recommended the patient be transferred to [facility] Emergency Room, apparently, she eventually changed her mind. She continued to have fever, become more encephalopathic and hypoxic and therefore was transferred to [facility] where she was evaluated and was found to be hypoxic with oxygen saturation of only 70%. Her temperature was 102. The evaluation showed that she has pneumonia, probably a small right-sided pneumothorax. Her white cell count was found to be high and on arrival, her heart rate was 149. The patient was treated with IV fluid and started on broad-spectrum coverage for healthcare-associated pneumonia as well as urinary tract infection and admitted to the ICU. When I saw her, she was drowsy, but arousable. PAST MEDICAL HISTORY: Significant for progressive multiple sclerosis with functional paraplegia. She has Factor V Leiden mutation, for which she is on Xarelto. She herself has never had any DVTs or Pes, but her father and her daughter positive for factor V Leiden and do have DVT. She has also chronic obstructive pulmonary disease. Unfortunately, she continues to smoke. She has severe protein-calorie malnutrition, neurogenic bladder requiring indwelling Shafer catheter with resultant recurrent urinary tract infection and stage 4 sacral decubitus ulcer. PAST SURGICAL HISTORY: Significant for wound debridement of her coccyx. ALLERGIES: She has no known drug allergies. MEDICATIONS: She is currently on following medications: She is on loratadine 10 mg once a day. She was on amoxicillin potassium clavulanate 875 mg twice a day, ipratropium bromide, albuterol sulfate for DuoNeb in 3 mL by nebulizer 3 times a day, dantrolene sodium 75 mg 4 times a day, baclofen 20 mg 4 times a day, nicotine patch 14 mg topically daily, ferrous sulfate 325 mg daily, apixaban 5 mg twice a day, oxycodone extended release 10 mg twice a day, oxycodone/APAP 5/325 for Percocet 1 tablet every 4 hours as needed, Tylenol 650 mg every 4 hours, duloxetine 30 mg daily, alprazolam 0.5 mg at bedtime. She is on potassium chloride 40 mEq daily, Mucinex 600 mg twice a day, lactobacillus acidophilus 2 capsules twice a day, senna 1 tablet daily, ondansetron 4 mg every 4 hours as needed, famotidine 20 mg twice a day, oxybutynin chloride 5 mg 3 times a day and multivitamin with folic acid 400 mg p.o. daily. FAMILY HISTORY: Positive for factor V Leiden in her daughter and father. SOCIAL HISTORY: She is currently a resident at [facility] in [place]. She is a smoker and continued to smoke. She does not drink alcohol or use any recreational drugs. REVIEW OF SYSTEMS: As per history of present illness. PHYSICAL EXAMINATION: GENERAL: On arrival to the Emergency Room, she was lethargic, arousable and pale, cachectic, but no jaundice, cyanosis or thyromegaly. No jugular venous distention. No limb edema. VITAL SIGNS: Her heart rate was 149, blood pressure was 86/58, temperature was 102, respiratory rate was 25, and oxygen saturation was 92% on room air. HEAD, EYES, EARS, NOSE AND THROAT: Normocephalic and atraumatic. NECK: Supple. HEART: Showed normal first and second heart sounds. No gallop, rub or murmur. CHEST: Clear to auscultation. No crepitation or rhonchi. ABDOMEN: Scaphoid, soft, nontender. No guarding or rigidity. No organomegaly. All hernial orifices intact. Bowel sounds normal. NEUROLOGIC: She is very sleepy, but arousable. All her cranial nerves intact. She has functional paraplegia, neurogenic bladder requiring indwelling Shafer catheter. She has large stage 4 sacral decubitus ulcer. LABORATORY DATA: On arrival showed a white cell count of 20,800, hemoglobin 11, hematocrit 36, MCV 70 and platelet count 506,000 with a manual differential showed 87% polymorphs and 16% lymphocytes. Her lab work showed a serum sodium 138, potassium 4.4, chloride 100, bicarbonate 22, anion gap of 16, BUN 12, creatinine 0.6, estimated GFR was 180 mL per minute. Her glucose 164, calcium was 8.9, magnesium was 1.7. Total bilirubin, AST, ALT, alkaline phosphatase were normal. Total protein was 6.5, albumin 2.4. Her lipase was only 40. Her prothrombin time was 18.9, INR 1.6. Urinalysis showed the urine was cloudy with a pH of 7.5, specific gravity of 1.030 and small amount of protein. The urine was negative for glucose, trace of ketones, negative for blood, nitrite and bilirubin. There was large amount of leukocyte esterase, no rbc's, too numerous to count wbc's and many bacteria. Has had a chest x-ray, which showed that she has right lower lobe infiltrate. She has also mediastinal shift to the small right-sided pneumothorax and probably lower lobe collapse. ASSESSMENT AND PLAN: The patient was admitted with severe sepsis, likely due to healthcare-associated pneumonia as well as urinary tract infection. The patient was given fluid and she was started on linezolid as well as Zosyn. We will continue with IV fluid, continue with norepinephrine to maintain a mean arterial pressure of 65 mmHg. We will consult the scalp specialist, Infectious Disease specialist as well as the wound care team. YOLI MEJIA MD DR: JUJU/ronit JOB#: [id number] / [id number]
[2019-06-12 06:50] LABS: HEMATOCRIT 33.1 % (36.0-47.0); HEMOGLOBIN 10.1 g/dL (12.0-15.5); RED BLOOD COUNT 4.7 x10^6/uL (3.50-5.40); RED CELL DISTRIBUTION WIDTH 18.7 % (11.5-14.5); WHITE BLOOD COUNT 17.1 x10^3/uL (4.0-11.0)
[2019-06-12 07:13] LABS: ALBUMIN/GLOBULIN RATIO 0.5 (1.0-1.7); CALCIUM 8.2 mg/dL (8.5-10.1); CREATININE 0.6 mg/dL (0.6-1.0); GFR 108.1; MAGNESIUM 1.4 mg/dL (1.8-2.4); POTASSIUM 3.6 mmol/L (3.5-5.1); TOTAL BILIRUBIN 0.7 mg/dL (0.2-1.0); TOTAL PROTEIN 6.2 g/dL (6.4-8.2)
--- NOTE | 2019-06-12 07:49 | PDOC ---
Infectious Disease Note Vital Sign Vital Signs Vital Signs Date Time Temp Pulse Resp B/P (MAP) Pulse Ox O2 Delivery O2 Flow Rate FiO2 06/12/19 06:00 99 16 98/61 (73) 99 Nasal Cannula 2.0 06/12/19 04:00 99.2 99.2 Labs Lab Laboratory Tests Test 06/11/19 23:30 06/11/19 23:40 06/12/19 01:50 06/12/19 06:08 Urine Collection Type U cath Urine Color Fern Urine Clarity Cloudy Urine pH 7.5 Urine Specific [place] >=1.030 Urine Protein 100 mg/dL (NEG-TRACE) Urine Glucose (UA) Negative mg/dL (NEG) Urine Ketones (Stick) Trace mg/dL (NEG) Urine Blood Negative (NEG) Urine Nitrite Negative (NEG) Urine Bilirubin Negative (NEG) Urine Urobilinogen Dipstick 1.0 mg/dL (0.2 mg/dL) Urine Leukocyte Esterase Large (NEG) Urine RBC 0 /HPF (0-2) Urine WBC Tntc /HPF (0-4) Urine Squamous Epithelial Cells Many /LPF Urine Amorphous Sediment Present /HPF Urine Bacteria Many /HPF (0-FEW) Urine Mucus Mod /LPF White Blood Count 20.8 x10^3/uL (4.0-11.0) 17.1 x10^3/uL (4.0-11.0) Red Blood Count 5.13 x10^6/uL (3.50-5.40) 4.70 x10^6/uL (3.50-5.40) Hemoglobin 11.2 g/dL (12.0-15.5) 10.1 g/dL (12.0-15.5) Hematocrit 35.8 % (36.0-47.0) 33.1 % (36.0-47.0) Mean Corpuscular Volume 70 fL (79-100) 71 fL (79-100) Mean Corpuscular Hemoglobin 22 pg (25-35) 22 pg (25-35) Mean Corpuscular Hemoglobin Concent 31 g/dL (31-37) 31 g/dL (31-37) Red Cell Distribution Width 18.6 % (11.5-14.5) 18.7 % (11.5-14.5) Platelet Count 506 x10^3/uL (140-400) 416 x10^3/uL (140-400) Neutrophils (%) (Auto) 87 % (31-73) Lymphocytes (%) (Auto) 6 % (24-48) Monocytes (%) (Auto) 7 % (0-9) Eosinophils (%) (Auto) 0 % (0-3) Basophils (%) (Auto) 0 % (0-3) Neutrophils # (Auto) 18.2 x10^3/uL (1.8-7.7) Lymphocytes # (Auto) 1.2 x10^3/uL (1.0-4.8) Monocytes # (Auto) 1.4 x10^3/uL (0.0-1.1) Eosinophils # (Auto) 0.0 x10^3/uL (0.0-0.7) Basophils # (Auto) 0.1 x10^3/uL (0.0-0.2) Segmented Neutrophils % 85 % (35-66) Band Neutrophils % 2 % (0-9) Lymphocytes % 6 % (24-48) Monocytes % 7 % (0-10) Platelet Estimate Increased (ADEQUATE) Prothrombin Time 18.9 SEC (11.7-14.0) Prothromb Time International Ratio 1.6 (0.8-1.1) Sodium Level 138 mmol/L (136-145) Potassium Level 4.4 mmol/L (3.5-5.1) Chloride Level 100 mmol/L (98-107) Carbon Dioxide Level 22 mmol/L (21-32) Anion Gap 16 (6-14) Blood Urea Nitrogen 12 mg/dL (7-20) Creatinine 0.6 mg/dL (0.6-1.0) Estimated GFR (Cockcroft-Gault) 108.1 BUN/Creatinine Ratio 20 (6-20) Glucose Level 164 mg/dL (70-99) Lactic Acid Level 1.9 mmol/L (0.4-2.0) 2.8 mmol/L (0.4-2.0) 2.7 mmol/L (0.4-2.0) Calcium Level 8.9 mg/dL (8.5-10.1) Magnesium Level 1.7 mg/dL (1.8-2.4) Total Bilirubin 0.5 mg/dL (0.2-1.0) Aspartate Amino Transf (AST/SGOT) 10 U/L (15-37) Alanine Aminotransferase (ALT/SGPT) 8 U/L (14-59) Alkaline Phosphatase 58 U/L (46-116) Troponin I Quantitative < 0.017 ng/mL (0.000-0.055) OH-Wqn-K-Type Natriuretic Peptide 1037 pg/mL (0-124) Total Protein 6.5 g/dL (6.4-8.2) Albumin 2.4 g/dL (3.4-5.0) Albumin/Globulin Ratio 0.6 (1.0-1.7) Lipase 40 U/L (73-393) Procalcitonin 0.22 ng/mL (0.00-0.10) Objective Assessment Sepsis with lactic acidosis and hypotension requiring vasopressor support HCAP Pyuria. Shafer chg 06/12 Leukocytosis Chronic sacrococcygeal pressure wound MS h/x C. diff colitis 12/2018 h/o MRSA, VRE and MDR infections Plan Plan of Care Continue Zyvox and Zosyn f/u cultures Monitor labs Maintain aspiration precautions Wound team consulted Offloading Thank you [id number] D/w nursing and picture of wound reviewed. She currently does not want wound evaluated. Seems much improved from picture. LAst cult her Dec 2018 for Ecoli in urine Attending Co-Sign Attending Co-Sign The patient was seen and interviewed as well as examined at the bedside. The chart was reviewed. The case was discussed. Agree with the plan of care. AMY REESE APRN Jun 12, 2019 07:49 GARRY HUNTER MD Jun 12, 2019 12:19
--- NOTE | 2019-06-12 07:53 | EKG ---
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
--- NOTE | 2019-06-12 08:12 | RAD ---
Examination: PORTABLE CHEST 1V History: Abnormal chest x-ray follow-up. Comparison/Correlation: 06/12/2019 portable chest x-ray performed at 12:58 AM Findings: Portable semiupright chest x-ray exam was performed. Heart size is normal. No pneumothorax. Linear density seen on the prior exam is not evident. Pulmonary vasculature is within upper limits of normal. No focal infiltrate. Bony structures are unremarkable. Impression: No focal infiltrate. No pneumothorax. Electronically signed by: Foster Gann MD (06/12/2019 8:09 AM) [facility]
[2019-06-12] MEDS: DANTROLENE SODIUM 25 MG CAPSULE PO SCH ×4 (09:00→21:27)
[2019-06-12] MEDS: OXYBUTYNIN CHLORIDE 5 MG TABLET PO SCH ×3 (09:37→21:27)
[2019-06-12] MEDS: FERROUS SULFATE 325 MG TABLET. PO SCH (09:38)
[2019-06-12] MEDS: LACTOBACILLUS RHAMNOSUS GG 1 CAPSULE. PO SCH ×2 (09:38→21:26)
[2019-06-12] MEDS: CYCLOBENZAPRINE 10 MG TABLET. PO SCH ×3 (09:38→21:27)
[2019-06-12] MEDS: FAMOTIDINE 20 MG TABLET. PO SCH ×2 (09:38→21:27)
[2019-06-12] MEDS: DULoxetine HCL 30 MG CAPSULE.DR PO SCH (09:38)
--- NOTE | 2019-06-12 10:16 | CONS ---
DATE OF CONSULTATION: 06/12/2019 REFERRING PHYSICIAN: Pato Cole MD REASON FOR CONSULTATION: Pneumonia. HISTORY OF PRESENT ILLNESS: This patient is a 43-year-old female, a jail resident, with progressive multiple sclerosis, who is bedbound, sent to the ER for hypoxia, fever and encephalopathy. She had a WBC count of 20,800, lactic acid 2.8, and procalcitonin of 0.22. A chest x-ray showed hazy opacity within the right lung, most prominent at the right chest base. She was dosed with Zyvox and Zosyn. She was admitted to the Intensive Care Unit. Her blood pressure is low, requiring vasopressor support. She is satting 95% on 2 L supplemental oxygen. She has a chronic indwelling Shafer catheter that was changed earlier. A urinalysis showed wbc's too numerous to count, large leukocyte esterase, with many squamous epithelial cells and bacteria. Urine and blood cultures are pending. She has a chronic sacrococcygeal pressure wound and has been treated for osteomyelitis in the past. Wound Care team has been consulted. PAST MEDICAL HISTORY: History of MRSA, VRE, multidrug-resistant infections, and Clostridium difficile colitis. Progressive multiple sclerosis, bedbound, COPD, anorexia/bulimia, depression, anxiety, chronic stage 4 sacrococcygeal pressure wound, factor V Leiden mutation, and history of DVT/PE. PAST SURGICAL HISTORY: Multiple debridements of sacrococcygeal wound. FAMILY HISTORY: Factor V deficiency. SOCIAL HISTORY: [facility] resident. She is a smoker. ALLERGIES: No known drug allergies. MEDICATIONS: Zyvox and Zosyn. Other medications are available and have been reviewed in the MAR. REVIEW OF SYSTEMS: The patient says she feels a little bit better. She does not recall what happened prior to admission. She says she has a little bit of a headache. She also has mild cough. Denies shortness of air, chest discomfort or palpitations. Denies nausea, vomiting or diarrhea. PHYSICAL EXAMINATION: VITAL SIGNS: Temperature is 99.2, T-max 102, blood pressure 98/61, heart rate of 99, respiratory rate 16, pulse oximetry is 99% on 2 L, and BMI 20. HEENT: Pupils are equally round and reactive. Oropharynx is very dry. NECK: Supple. LUNGS: Clear to auscultation. HEART: S1 and S2. ABDOMEN: Soft and nontender with bowel sounds present. GENITOURINARY: Indwelling Shafer in place (8-5). EXTREMITIES: No gross edema or cyanosis. She has contractures and muscle atrophy. SKIN: Warm to touch. No signs of rash. Sacrococcygeal wound. (picture reviewed) NEUROLOGIC: Awake, answering questions appropriately. ACCESS: She has a peripheral IV, left chest area. LABORATORY DATA: Today's WBC 17.1, hemoglobin 10.1, and platelets 416,000. Recent sodium 138, potassium 4.4, creatinine 0.6, BUN 12, glucose 164. Lactic acid 2.7. Total bilirubin 0.5, AST 10, ALT 8. BNP 1037. Lipase 40. Today's chest x-ray pending. Urine and blood cultures pending. ASSESSMENT: 1. Sepsis with lactic acidosis and hypotension, required vasopressor support. 2. Healthcare-acquired pneumonia. 3. Pyuria. 4. Leukocytosis. 5. Chronic sacrococcygeal pressure wound. 6. Progressive multiple sclerosis. 7. History of Clostridium difficile colitis. 8. History of methicillin-resistant Staphylococcus aureus, vancomycin-resistant Enterococcus and multidrug-resistant infections. PLAN: Continue Zyvox and Zosyn. We will follow up on culture results. Continue to monitor laboratory values. Local wound care and offloading. Wound Care team has been consulted. Maintain aspiration precautions. Thank you, Dr. Cole for asking us to participate in this patient's care. Should you have further questions or concerns, please call. GARRY HUNTER MD DR: RICHARD/ronit JOB#: [id number] / [id number] ESTEBAN
--- NOTE | 2019-06-12 10:20 | NUR ---
IP: Pt has had aa hx of mrsa since 2009 with most recent a + mrsa screen on 03/04/19. Current screen is pending. Pt to be in contact precautions until there are 2 negative screens 7 days apart.
--- NOTE | 2019-06-12 11:40 | PDOC ---
PULMONARY PROGRESS NOTES Vitals Vital Signs Date Time Temp Pulse Resp B/P (MAP) Pulse Ox O2 Delivery O2 Flow Rate FiO2 06/12/19 10:00 102 98/65 (76) 94 Nasal Cannula 2.0 06/12/19 09:30 20 06/12/19 07:30 98.5 98.5 General: Alert, No acute distress Lungs: Clear Cardiovascular: S1, S2 Abdomen: Soft, Non-tender Extremities: No Edema Skin: Warm, Dry (resp effort imporved somehwat after fluids.) Labs Laboratory Tests Test 06/11/19 23:30 06/11/19 23:40 06/12/19 01:50 06/12/19 06:08 Urine Collection Type U cath Urine Color Fern Urine Clarity Cloudy Urine pH 7.5 Urine Specific [place] >=1.030 Urine Protein 100 mg/dL (NEG-TRACE) Urine Glucose (UA) Negative mg/dL (NEG) Urine Ketones (Stick) Trace mg/dL (NEG) Urine Blood Negative (NEG) Urine Nitrite Negative (NEG) Urine Bilirubin Negative (NEG) Urine Urobilinogen Dipstick 1.0 mg/dL (0.2 mg/dL) Urine Leukocyte Esterase Large (NEG) Urine RBC 0 /HPF (0-2) Urine WBC Tntc /HPF (0-4) Urine Squamous Epithelial Cells Many /LPF Urine Amorphous Sediment Present /HPF Urine Bacteria Many /HPF (0-FEW) Urine Mucus Mod /LPF White Blood Count 20.8 x10^3/uL (4.0-11.0) 17.1 x10^3/uL (4.0-11.0) Red Blood Count 5.13 x10^6/uL (3.50-5.40) 4.70 x10^6/uL (3.50-5.40) Hemoglobin 11.2 g/dL (12.0-15.5) 10.1 g/dL (12.0-15.5) Hematocrit 35.8 % (36.0-47.0) 33.1 % (36.0-47.0) Mean Corpuscular Volume 70 fL (79-100) 71 fL (79-100) Mean Corpuscular Hemoglobin 22 pg (25-35) 22 pg (25-35) Mean Corpuscular Hemoglobin Concent 31 g/dL (31-37) 31 g/dL (31-37) Red Cell Distribution Width 18.6 % (11.5-14.5) 18.7 % (11.5-14.5) Platelet Count 506 x10^3/uL (140-400) 416 x10^3/uL (140-400) Neutrophils (%) (Auto) 87 % (31-73) Lymphocytes (%) (Auto) 6 % (24-48) Monocytes (%) (Auto) 7 % (0-9) Eosinophils (%) (Auto) 0 % (0-3) Basophils (%) (Auto) 0 % (0-3) Neutrophils # (Auto) 18.2 x10^3/uL (1.8-7.7) Lymphocytes # (Auto) 1.2 x10^3/uL (1.0-4.8) Monocytes # (Auto) 1.4 x10^3/uL (0.0-1.1) Eosinophils # (Auto) 0.0 x10^3/uL (0.0-0.7) Basophils # (Auto) 0.1 x10^3/uL (0.0-0.2) Segmented Neutrophils % 85 % (35-66) Band Neutrophils % 2 % (0-9) Lymphocytes % 6 % (24-48) Monocytes % 7 % (0-10) Platelet Estimate Increased (ADEQUATE) Prothrombin Time 18.9 SEC (11.7-14.0) Prothromb Time International Ratio 1.6 (0.8-1.1) Sodium Level 138 mmol/L (136-145) 140 mmol/L (136-145) Potassium Level 4.4 mmol/L (3.5-5.1) 3.6 mmol/L (3.5-5.1) Chloride Level 100 mmol/L (98-107) 106 mmol/L (98-107) Carbon Dioxide Level 22 mmol/L (21-32) 22 mmol/L (21-32) Anion Gap 16 (6-14) 12 (6-14) Blood Urea Nitrogen 12 mg/dL (7-20) 11 mg/dL (7-20) Creatinine 0.6 mg/dL (0.6-1.0) 0.6 mg/dL (0.6-1.0) Estimated GFR (Cockcroft-Gault) 108.1 108.1 BUN/Creatinine Ratio 20 (6-20) 18 (6-20) Glucose Level 164 mg/dL (70-99) 133 mg/dL (70-99) Lactic Acid Level 1.9 mmol/L (0.4-2.0) 2.8 mmol/L (0.4-2.0) 2.7 mmol/L (0.4-2.0) Calcium Level 8.9 mg/dL (8.5-10.1) 8.2 mg/dL (8.5-10.1) Magnesium Level 1.7 mg/dL (1.8-2.4) 1.4 mg/dL (1.8-2.4) Total Bilirubin 0.5 mg/dL (0.2-1.0) 0.7 mg/dL (0.2-1.0) Aspartate Amino Transf (AST/SGOT) 10 U/L (15-37) 8 U/L (15-37) Alanine Aminotransferase (ALT/SGPT) 8 U/L (14-59) 6 U/L (14-59) Alkaline Phosphatase 58 U/L (46-116) 47 U/L (46-116) Troponin I Quantitative < 0.017 ng/mL (0.000-0.055) GP-Zzk-O-Type Natriuretic Peptide 1037 pg/mL (0-124) Total Protein 6.5 g/dL (6.4-8.2) 6.2 g/dL (6.4-8.2) Albumin 2.4 g/dL (3.4-5.0) 2.0 g/dL (3.4-5.0) Albumin/Globulin Ratio 0.6 (1.0-1.7) 0.5 (1.0-1.7) Lipase 40 U/L (73-393) Procalcitonin 0.22 ng/mL (0.00-0.10) Laboratory Tests Test 06/11/19 23:30 06/11/19 23:40 06/12/19 01:50 06/12/19 06:08 Urine Collection Type U cath Urine Color Fern Urine Clarity Cloudy Urine pH 7.5 Urine Specific [place] >=1.030 Urine Protein 100 mg/dL (NEG-TRACE) Urine Glucose (UA) Negative mg/dL (NEG) Urine Ketones (Stick) Trace mg/dL (NEG) Urine Blood Negative (NEG) Urine Nitrite Negative (NEG) Urine Bilirubin Negative (NEG) Urine Urobilinogen Dipstick 1.0 mg/dL (0.2 mg/dL) Urine Leukocyte Esterase Large (NEG) Urine RBC 0 /HPF (0-2) Urine WBC Tntc /HPF (0-4) Urine Squamous Epithelial Cells Many /LPF Urine Amorphous Sediment Present /HPF Urine Bacteria Many /HPF (0-FEW) Urine Mucus Mod /LPF White Blood Count 20.8 x10^3/uL (4.0-11.0) 17.1 x10^3/uL (4.0-11.0) Red Blood Count 5.13 x10^6/uL (3.50-5.40) 4.70 x10^6/uL (3.50-5.40) Hemoglobin 11.2 g/dL (12.0-15.5) 10.1 g/dL (12.0-15.5) Hematocrit 35.8 % (36.0-47.0) 33.1 % (36.0-47.0) Mean Corpuscular Volume 70 fL (79-100) 71 fL (79-100) Mean Corpuscular Hemoglobin 22 pg (25-35) 22 pg (25-35) Mean Corpuscular Hemoglobin Concent 31 g/dL (31-37) 31 g/dL (31-37) Red Cell Distribution Width 18.6 % (11.5-14.5) 18.7 % (11.5-14.5) Platelet Count 506 x10^3/uL (140-400) 416 x10^3/uL (140-400) Neutrophils (%) (Auto) 87 % (31-73) Lymphocytes (%) (Auto) 6 % (24-48) Monocytes (%) (Auto) 7 % (0-9) Eosinophils (%) (Auto) 0 % (0-3) Basophils (%) (Auto) 0 % (0-3) Neutrophils # (Auto) 18.2 x10^3/uL (1.8-7.7) Lymphocytes # (Auto) 1.2 x10^3/uL (1.0-4.8) Monocytes # (Auto) 1.4 x10^3/uL (0.0-1.1) Eosinophils # (Auto) 0.0 x10^3/uL (0.0-0.7) Basophils # (Auto) 0.1 x10^3/uL (0.0-0.2) Segmented Neutrophils % 85 % (35-66) Band Neutrophils % 2 % (0-9) Lymphocytes % 6 % (24-48) Monocytes % 7 % (0-10) Platelet Estimate Increased (ADEQUATE) Prothrombin Time 18.9 SEC (11.7-14.0) Prothromb Time International Ratio 1.6 (0.8-1.1) Sodium Level 138 mmol/L (136-145) 140 mmol/L (136-145) Potassium Level 4.4 mmol/L (3.5-5.1) 3.6 mmol/L (3.5-5.1) Chloride Level 100 mmol/L (98-107) 106 mmol/L (98-107) Carbon Dioxide Level 22 mmol/L (21-32) 22 mmol/L (21-32) Anion Gap 16 (6-14) 12 (6-14) Blood Urea Nitrogen 12 mg/dL (7-20) 11 mg/dL (7-20) Creatinine 0.6 mg/dL (0.6-1.0) 0.6 mg/dL (0.6-1.0) Estimated GFR (Cockcroft-Gault) 108.1 108.1 BUN/Creatinine Ratio 20 (6-20) 18 (6-20) Glucose Level 164 mg/dL (70-99) 133 mg/dL (70-99) Lactic Acid Level 1.9 mmol/L (0.4-2.0) 2.8 mmol/L (0.4-2.0) 2.7 mmol/L (0.4-2.0) Calcium Level 8.9 mg/dL (8.5-10.1) 8.2 mg/dL (8.5-10.1) Magnesium Level 1.7 mg/dL (1.8-2.4) 1.4 mg/dL (1.8-2.4) Total Bilirubin 0.5 mg/dL (0.2-1.0) 0.7 mg/dL (0.2-1.0) Aspartate Amino Transf (AST/SGOT) 10 U/L (15-37) 8 U/L (15-37) Alanine Aminotransferase (ALT/SGPT) 8 U/L (14-59) 6 U/L (14-59) Alkaline Phosphatase 58 U/L (46-116) 47 U/L (46-116) Troponin I Quantitative < 0.017 ng/mL (0.000-0.055) QX-Cuz-I-Type Natriuretic Peptide 1037 pg/mL (0-124) Total Protein 6.5 g/dL (6.4-8.2) 6.2 g/dL (6.4-8.2) Albumin 2.4 g/dL (3.4-5.0) 2.0 g/dL (3.4-5.0) Albumin/Globulin Ratio 0.6 (1.0-1.7) 0.5 (1.0-1.7) Lipase 40 U/L (73-393) Procalcitonin 0.22 ng/mL (0.00-0.10) Medications Active Scripts Medications Dose Route/Sig Max Daily Dose Days Date Category Augmentin 875-125 Tablet (Amoxicillin/Potassium Clav) 1 Each Tablet 1 Tab PO BID 5 05/29/19 Rx Oxycodone HCl ER (Oxycodone HCl) 10 Mg Tab.er.12h 10 Mg PO BID 05/24/19 Reported Dantrolene Sodium 25 Mg Capsule 75 Mg PO QID 05/24/19 Reported Acidophilus (Lactobacillus Acidophilus) 1 Each Tab.chew 2 Each PO BID 05/24/19 Reported Thera Tablet (Multivitamin with Folic Acid) 400 Mcg Tablet 400 Mcg PO DAILY 05/24/19 Reported Sennosides 8.6 Mg Tablet 8.6 Mg PO DAILY 05/24/19 Reported Percocet 5-325 Mg Tablet (Oxycodone/Acetaminophen) 1 Each Tablet 1 Tab PO PRN Q4HRS PRN 05/24/19 Reported Potassium Chloride 20 Meq Tablet.er 40 Meq PO DAILY 12/30/18 Reported Oxybutynin Chloride 5 Mg Tablet 5 Mg PO TID 12/30/18 Reported Zofran (Ondansetron Hcl) 4 Mg Tablet 1 Tab PO PRN Q4HRS PRN 12/30/18 Reported NICODERM CQ 14mg (Nicotine) 1 Each Patch.td24 1 Patch TP DAILY 12/30/18 Reported Loratadine 10 Mg Tablet 1 Tab PO DAILY 12/30/18 Reported Duoneb 0.5-3(2.5) Mg/3 Ml (Albuterol/Ipratropium) 3 Ml Ampul.neb 3 Ml NEB TID 12/30/18 Reported Mucinex (Guaifenesin) 600 Mg Tablet.er 1 Tab PO BID 12/30/18 Reported Ferrous Sulfate 325 Mg Tablet 325 Mg PO DAILY 12/30/18 Reported Famotidine 20 Mg Tablet 20 Mg PO BID 12/30/18 Reported Cymbalta (Duloxetine Hcl) 30 Mg Capsule.dr 30 Mg PO DAILY 12/30/18 Reported Baclofen 20 Mg Tablet 20 Mg PO QID 12/30/18 Reported Eliquis (Apixaban) 5 Mg Tablet 5 Mg PO BID 12/30/18 Reported Alprazolam 0.5 Mg Tablet 1 Tab PO HS 12/30/18 Reported Tylenol (Acetaminophen) 325 Mg Tablet 650 Mg PO PRN Q4HRS PRN 12/30/18 Reported Impression . FULL NOTE DICTATED AGREE WITH CURRENT RX SEPSIS PARVEZ HERNANDEZ MD Jun 12, 2019 11:40
--- NOTE | 2019-06-12 13:13 | NUR ---
NN : More awake mid morning and able to take ordered meds per DR Frankel otherwise NPO . Repositioned, after meds and is presently comfortable. Dr Hernandez in/consult complete. Antibiotics per order.. Shafer drainage positional,dumped w right side lying. Continue POC
--- NOTE | 2019-06-12 13:18 | CONS ---
DATE OF CONSULTATION: 06/12/2019 ATTENDING PHYSICIAN: Faina Frankel MD CONSULTING PHYSICIAN: Parvez Hernandez MD REASON FOR CONSULTATION: The patient is seen in pulmonary consultation at the request of Dr. Frankel for abnormal x-ray, increasing shortness of air. HISTORY OF PRESENT ILLNESS: The patient is a 43-year-old with unfortunate end-stage multiple sclerosis. She is basically bedbound. She was sent to the Emergency Room from the shelter with increasing fever, encephalopathy and hypoxemia. She had a WBC count of 20,000. She has been seen by Infectious Disease Service and is currently being treated with Zyvox and Zosyn. She had a chest x-ray, which was abnormal revealing right lower lobe infiltrate. I was asked to see her in consultation. The patient currently is awake, alert, following command. She is requiring vasopressors for low blood pressure. She is on 2 liters of oxygen supplementation. She does eat by mouth. She states she is not having any difficulty with emesis. She follows speech therapist recommendation. It was also noted that she had a temperature of 102. PAST MEDICAL HISTORY: Remarkable for: 1. Progressive multiple sclerosis with functional paraplegia. 2. Factor V Leiden mutation. She is on Xarelto. She has never had DVT or pulmonary embolism. 3. Chronic obstructive pulmonary disease. 4. Tobacco dependent. 5. Severe protein malnutrition. 6. Neurogenic bladder requiring indwelling Shafer catheter with recurrent urinary tract infection. 7. Stage IV sacral decubiti ulcers. PAST SURGICAL HISTORY: Multiple debridements of sacral wounds. FAMILY HISTORY: Factor V mutation. SOCIAL HISTORY: She resides in a shelter. She continues to smoke. ALLERGIES: No known drug allergies. CURRENT MEDICATIONS: List was reviewed. REVIEW OF SYSTEMS: As indicated above, otherwise, a 10-point system was reviewed and negative. PHYSICAL EXAMINATION: GENERAL: The patient did not appear to be in any respiratory distress. She was resting comfortably. She was awake, alert, following commands. HEENT: Eyes, the sclera was nonicteric. NECK: Jugular venous distention was not elevated. No lymphadenopathy. CHEST: Full expansion. LUNGS: Adequate airway flow, no wheezes. CARDIOVASCULAR: Regular rate and rhythm with S1, S2, no S3. ABDOMEN: Soft, nontender, nondistended. She had a PEG tube in place. EXTREMITIES: No clubbing, cyanosis. She had a severe contraction. LABORATORY DATA: White count was elevated at 20,000, hemoglobin and hematocrit were noted. INR was 1.6. BUN and creatinine were normal. Lactic acid level was 2.8, repeat was 2.7, magnesium was low. Albumin was low. Procalcitonin was 0.22. Chest x-ray revealed an infiltrate in the right lower lobe. IMPRESSION: 1. Acute respiratory failure. 2. Septic shock. 3. Lactic acidosis secondary to sepsis. 4. Pneumonia, gram-positive, gram-negative. 5. Pyuria. 6. Chronic sacrococcygeal pressure wounds, stage 4. 7. Progressive multiple sclerosis. 8. History of Clostridium difficile. 9. History of methicillin-resistant Staphylococcus aureus. 10. Tobacco dependence. 11. Factor V Leiden mutation. PLAN: 1. We will continue current support with oxygen supplementation. 2. Antibiotics. 3. IV fluids. 4. Speech evaluation. 5. Continue home meds. 6. DVT and GI prophylaxis. 7. Clostridium difficile prophylaxis per ID. I do appreciate the privilege in sharing in patient's care. PARVEZ HERNANDEZ MD DR: LALA/ronit JOB#: [id number] / [id number]
--- NOTE | 2019-06-12 13:56 | NUR ---
NN : ICU beds P 500/ curently on one. Order cancelled
--- NOTE | 2019-06-12 16:24 | NUR ---
SS following for discharge planning. SS received notification that pt was from [facility], ; fax [phone]. SS contacted [facility] and verified that pt was a LTC resident from there facility and was able to return when medically stable for discharge.
--- NOTE | 2019-06-12 17:11 | NUR ---
Wound care: Patient seen per wound care consult. See wound assessment. Patient is well known to us from previous admissions. Patient has a stage IV to coccyx. Wound cleansed and assessed. Recommendations for Aquacel Ag and Aquacel foam dressing. Wound appears stable. Dressing applied. Dressing change instructions left in room. patient repositioned using wedge to left side per her request. Bilateral heel medix. Patient c/o pain in IV site near hand, RN notified. Call light in reach and bed lowered. Will follow patient regarding wound care.
[2019-06-12] MEDS: ALPRAZolam 0.5 MG TABLET PO SCH (21:27)
[2019-06-13] VITALS (24 sets, daily range): BP systolic 85–135; BP diastolic 60–81
[2019-06-13] MEDS: PIPERACILLIN/TAZOBACTAM 3.375 GM in IV NORMAL SALINE 50ML 50 ML IV SCH ×4 (02:01→17:24)
[2019-06-13] MEDS: NOREPINEPHRIN 8MG/250ML PREMIX 250 ML IV PRN (03:46)
[2019-06-13] MEDS: DANTROLENE SODIUM 25 MG CAPSULE PO SCH ×4 (08:12→21:02)
[2019-06-13] MEDS: OXYBUTYNIN CHLORIDE 5 MG TABLET PO SCH ×3 (08:13→21:02)
[2019-06-13] MEDS: FAMOTIDINE 20 MG TABLET. PO SCH ×2 (08:13→21:03)
[2019-06-13] MEDS: FERROUS SULFATE 325 MG TABLET. PO SCH (08:13)
[2019-06-13] MEDS: DULoxetine HCL 30 MG CAPSULE.DR PO SCH (08:13)
[2019-06-13] MEDS: CYCLOBENZAPRINE 10 MG TABLET. PO SCH ×3 (08:13→21:02)
[2019-06-13] MEDS: LACTOBACILLUS RHAMNOSUS GG 1 CAPSULE. PO SCH ×2 (08:13→21:02)
[2019-06-13] MEDS ORDERED: MAGNESIUM SULFATE 2GM 50 ML IV PRN (08:15)
[2019-06-13] MEDS ORDERED: MAGNESIUM SULFATE 2GM 50 ML IV ONE (08:30)
--- NOTE | 2019-06-13 08:54 | PDOC ---
Infectious Disease Note Subjective Subjective Feeling better O2 down to 1 L, satting 95% Hypotensive - still on Levophed 3 mcg down from 6 mcg No fevers last 24 hours Denies chills/aches/N/V/D/SOA/dysphagia ROS ROS per HPI Vital Sign Vital Signs Vital Signs Date Time Temp Pulse Resp B/P (MAP) Pulse Ox O2 Delivery O2 Flow Rate FiO2 06/13/19 04:47 66 16 113/74 (87) 98 Nasal Cannula 2.0 06/13/19 04:00 99.5 99.5 Physical Exam PHYSICAL EXAM GENERAL: More alert,conversing, NAD-eating lunch HEENT: Pupils are equally round and reactive. Oropharynx dry. NECK: Supple. LUNGS: Clear to auscultation. HEART: S1 and S2. ABDOMEN: Soft and nontender with bowel sounds present. GENITOURINARY: Indwelling Shafer in place (8-5). EXTREMITIES: No gross edema or cyanosis. Contractures and muscle atrophy. SKIN: Warm to touch. No signs of rash. Sacrococcygeal wound- clean (pic reviewed) NEUROLOGIC: Alert, answering questions appropriately. PIV, left chest area. Labs Lab CXR, 06/12 No focal infiltrate. No pneumothorax. Micro Microbiology 06/11/19 Blood Culture - Preliminary, Resulted NO GROWTH AFTER 1 DAY Objective Assessment Sepsis with lactic acidosis and hypotension requiring vasopressor support - weaning off Levophed HCAP Pyuria. Shafer chg 06/12 Leukocytosis - better Chronic sacrococcygeal pressure wound MS h/x C. diff colitis 12/2018 h/o MRSA, VRE and MDR infections h/o E. coli in urine Plan Plan of Care Continue Zyvox and Zosyn f/u cultures f/u am labs Maintain aspiration precautions Wound team following Offloading D/w nursing Attending Co-Sign Attending Co-Sign The patient was seen and interviewed as well as examined at the bedside. The chart was reviewed. The case was discussed. Agree with the plan of care. AMY REESE APRN Jun 13, 2019 08:54 GARRY HUNTER MD Jun 13, 2019 12:42
--- NOTE | 2019-06-13 09:02 | PN ---
DATE: 06/13/2019 SUBJECTIVE: The patient is resting, slightly propped up in bed, in no apparent respiratory distress. She is awake and alert. On questioning her, she denied any complaints and stated that she is hungry. The nursing staff did not voice any concerns that she has an uneventful night. Her Levophed was discontinued as her mean arterial pressure was 85 mmHg. PHYSICAL EXAMINATION: GENERAL: When I examined her, she was pale, somewhat flushed, but no jaundice, cyanosis or thyromegaly. No jugular venous distension. No lower limb edema. VITAL SIGNS: Her heart rate was 66, blood pressure 113/74, temperature was 99.5, respiratory rate was 16, and oxygen saturation was 98% on 2 liters of oxygen. HEAD, EYES, EARS, NOSE AND THROAT: Showed normocephalic, atraumatic. NECK: Supple. CARDIAC: Normal first and second heart sounds with no gallop or murmur. CHEST: Clear to auscultation. No crepitation or rhonchi. ABDOMEN: Distended, soft, nontender. NEUROLOGIC: She is awake, alert, responding appropriately. All cranial nerves intact. She has quadriplegia with marked fixed flexion contraction of all 4 limbs. She has neurogenic bladder requiring indwelling Shafer catheter. She has stage 4 sacral decubitus ulcer. Her intake was 3100, output was incompletely recorded. LABORATORY DATA: As of yesterday showed a white cell count 17,000, hemoglobin 10, hematocrit 33, MCV 71 and platelet count of 116,000. Her chemistry as of yesterday showed a serum sodium 140, potassium 3.6, chloride 106, bicarbonate 22, anion gap of 12, BUN 11, creatinine 0.6, estimated GFR was 180 mL per minute. Her glucose 133, calcium was 8.2, magnesium was low at 1.4. AST, ALT, alkaline phosphatase were normal. Total protein 6.2, albumin was 2. Her chest x-ray what was felt to be pneumothorax was artifact according to the radiologist. His cultures are so far negative. ASSESSMENT: Severe sepsis due to healthcare-associated pneumonia as well as urinary tract infection, to continue with IV linezolid and Zosyn as well as IV fluid. Norepinephrine was discontinued. Other medical problems include, 1. She has progressive multiple sclerosis. 2. Acute hypoxic respiratory failure. 3. Chronic sacrococcygeal decubitus ulcer, history of Clostridium difficile colitis, history of Methicillin-resistant Staphylococcus aureus, tobacco dependence, Factor V Liden. PLAN: To continue with all her current medication. Start her on, apparently she is on according to her mechanical soft diet, with thin liquid. We will repeat her labs tomorrow. YOLI MEJIA MD DR: JUJU/ronit JOB#: [id number] / [id number]
[2019-06-13] MEDS: IV NORMAL SALINE 1000ML BAG 1,000 ML IV SCH ×2 (10:00→21:14)
--- NOTE | 2019-06-13 10:33 | PDOC ---
PULMONARY PROGRESS NOTES Subjective awake, no soa low dose levo Vitals Vital Signs Date Time Temp Pulse Resp B/P (MAP) Pulse Ox O2 Delivery O2 Flow Rate FiO2 06/13/19 10:00 75 18 85/60 (68) 98 Nasal Cannula 2.0 06/13/19 08:00 98.4 98.4 General: Alert, No acute distress Lungs: Other (decrease bases, few ant rhonchi) Cardiovascular: S1, S2 Abdomen: Soft, Non-tender Neuro Exam: Alert Extremities: No Edema Skin: Warm, Dry (resp effort imporved somehwat after fluids.) Labs Laboratory Tests Test 06/11/19 23:30 06/11/19 23:40 06/12/19 01:50 06/12/19 03:57 Urine Collection Type U cath Urine Color Fern Urine Clarity Cloudy Urine pH 7.5 Urine Specific [place] >=1.030 Urine Protein 100 mg/dL (NEG-TRACE) Urine Glucose (UA) Negative mg/dL (NEG) Urine Ketones (Stick) Trace mg/dL (NEG) Urine Blood Negative (NEG) Urine Nitrite Negative (NEG) Urine Bilirubin Negative (NEG) Urine Urobilinogen Dipstick 1.0 mg/dL (0.2 mg/dL) Urine Leukocyte Esterase Large (NEG) Urine RBC 0 /HPF (0-2) Urine WBC Tntc /HPF (0-4) Urine Squamous Epithelial Cells Many /LPF Urine Amorphous Sediment Present /HPF Urine Bacteria Many /HPF (0-FEW) Urine Mucus Mod /LPF White Blood Count 20.8 x10^3/uL (4.0-11.0) Red Blood Count 5.13 x10^6/uL (3.50-5.40) Hemoglobin 11.2 g/dL (12.0-15.5) Hematocrit 35.8 % (36.0-47.0) Mean Corpuscular Volume 70 fL (79-100) Mean Corpuscular Hemoglobin 22 pg (25-35) Mean Corpuscular Hemoglobin Concent 31 g/dL (31-37) Red Cell Distribution Width 18.6 % (11.5-14.5) Platelet Count 506 x10^3/uL (140-400) Neutrophils (%) (Auto) 87 % (31-73) Lymphocytes (%) (Auto) 6 % (24-48) Monocytes (%) (Auto) 7 % (0-9) Eosinophils (%) (Auto) 0 % (0-3) Basophils (%) (Auto) 0 % (0-3) Neutrophils # (Auto) 18.2 x10^3/uL (1.8-7.7) Lymphocytes # (Auto) 1.2 x10^3/uL (1.0-4.8) Monocytes # (Auto) 1.4 x10^3/uL (0.0-1.1) Eosinophils # (Auto) 0.0 x10^3/uL (0.0-0.7) Basophils # (Auto) 0.1 x10^3/uL (0.0-0.2) Segmented Neutrophils % 85 % (35-66) Band Neutrophils % 2 % (0-9) Lymphocytes % 6 % (24-48) Monocytes % 7 % (0-10) Platelet Estimate Increased (ADEQUATE) Prothrombin Time 18.9 SEC (11.7-14.0) Prothromb Time International Ratio 1.6 (0.8-1.1) Sodium Level 138 mmol/L (136-145) Potassium Level 4.4 mmol/L (3.5-5.1) Chloride Level 100 mmol/L (98-107) Carbon Dioxide Level 22 mmol/L (21-32) Anion Gap 16 (6-14) Blood Urea Nitrogen 12 mg/dL (7-20) Creatinine 0.6 mg/dL (0.6-1.0) Estimated GFR (Cockcroft-Gault) 108.1 BUN/Creatinine Ratio 20 (6-20) Glucose Level 164 mg/dL (70-99) Lactic Acid Level 1.9 mmol/L (0.4-2.0) 2.8 mmol/L (0.4-2.0) Calcium Level 8.9 mg/dL (8.5-10.1) Magnesium Level 1.7 mg/dL (1.8-2.4) Total Bilirubin 0.5 mg/dL (0.2-1.0) Aspartate Amino Transf (AST/SGOT) 10 U/L (15-37) Alanine Aminotransferase (ALT/SGPT) 8 U/L (14-59) Alkaline Phosphatase 58 U/L (46-116) Troponin I Quantitative < 0.017 ng/mL (0.000-0.055) BH-Tyj-X-Type Natriuretic Peptide 1037 pg/mL (0-124) Total Protein 6.5 g/dL (6.4-8.2) Albumin 2.4 g/dL (3.4-5.0) Albumin/Globulin Ratio 0.6 (1.0-1.7) Lipase 40 U/L (73-393) Procalcitonin 0.22 ng/mL (0.00-0.10) Nasal Screen MRSA (PCR) Positive (Negative) Test 06/12/19 06:08 White Blood Count 17.1 x10^3/uL (4.0-11.0) Red Blood Count 4.70 x10^6/uL (3.50-5.40) Hemoglobin 10.1 g/dL (12.0-15.5) Hematocrit 33.1 % (36.0-47.0) Mean Corpuscular Volume 71 fL (79-100) Mean Corpuscular Hemoglobin 22 pg (25-35) Mean Corpuscular Hemoglobin Concent 31 g/dL (31-37) Red Cell Distribution Width 18.7 % (11.5-14.5) Platelet Count 416 x10^3/uL (140-400) Sodium Level 140 mmol/L (136-145) Potassium Level 3.6 mmol/L (3.5-5.1) Chloride Level 106 mmol/L (98-107) Carbon Dioxide Level 22 mmol/L (21-32) Anion Gap 12 (6-14) Blood Urea Nitrogen 11 mg/dL (7-20) Creatinine 0.6 mg/dL (0.6-1.0) Estimated GFR (Cockcroft-Gault) 108.1 BUN/Creatinine Ratio 18 (6-20) Glucose Level 133 mg/dL (70-99) Lactic Acid Level 2.7 mmol/L (0.4-2.0) Calcium Level 8.2 mg/dL (8.5-10.1) Magnesium Level 1.4 mg/dL (1.8-2.4) Total Bilirubin 0.7 mg/dL (0.2-1.0) Aspartate Amino Transf (AST/SGOT) 8 U/L (15-37) Alanine Aminotransferase (ALT/SGPT) 6 U/L (14-59) Alkaline Phosphatase 47 U/L (46-116) Total Protein 6.2 g/dL (6.4-8.2) Albumin 2.0 g/dL (3.4-5.0) Albumin/Globulin Ratio 0.5 (1.0-1.7) Medications Active Scripts Medications Dose Route/Sig Max Daily Dose Days Date Category Augmentin 875-125 Tablet (Amoxicillin/Potassium Clav) 1 Each Tablet 1 Tab PO BID 5 05/29/19 Rx Oxycodone HCl ER (Oxycodone HCl) 10 Mg Tab.er.12h 10 Mg PO BID 05/24/19 Reported Dantrolene Sodium 25 Mg Capsule 75 Mg PO QID 05/24/19 Reported Acidophilus (Lactobacillus Acidophilus) 1 Each Tab.chew 2 Each PO BID 05/24/19 Reported Thera Tablet (Multivitamin with Folic Acid) 400 Mcg Tablet 400 Mcg PO DAILY 05/24/19 Reported Sennosides 8.6 Mg Tablet 8.6 Mg PO DAILY 05/24/19 Reported Percocet 5-325 Mg Tablet (Oxycodone/Acetaminophen) 1 Each Tablet 1 Tab PO PRN Q4HRS PRN 05/24/19 Reported Potassium Chloride 20 Meq Tablet.er 40 Meq PO DAILY 12/30/18 Reported Oxybutynin Chloride 5 Mg Tablet 5 Mg PO TID 12/30/18 Reported Zofran (Ondansetron Hcl) 4 Mg Tablet 1 Tab PO PRN Q4HRS PRN 12/30/18 Reported NICODERM CQ 14mg (Nicotine) 1 Each Patch.td24 1 Patch TP DAILY 12/30/18 Reported Loratadine 10 Mg Tablet 1 Tab PO DAILY 12/30/18 Reported Duoneb 0.5-3(2.5) Mg/3 Ml (Albuterol/Ipratropium) 3 Ml Ampul.neb 3 Ml NEB TID 12/30/18 Reported Mucinex (Guaifenesin) 600 Mg Tablet.er 1 Tab PO BID 12/30/18 Reported Ferrous Sulfate 325 Mg Tablet 325 Mg PO DAILY 12/30/18 Reported Famotidine 20 Mg Tablet 20 Mg PO BID 12/30/18 Reported Cymbalta (Duloxetine Hcl) 30 Mg Capsule.dr 30 Mg PO DAILY 12/30/18 Reported Baclofen 20 Mg Tablet 20 Mg PO QID 12/30/18 Reported Eliquis (Apixaban) 5 Mg Tablet 5 Mg PO BID 12/30/18 Reported Alprazolam 0.5 Mg Tablet 1 Tab PO HS 12/30/18 Reported Tylenol (Acetaminophen) 325 Mg Tablet 650 Mg PO PRN Q4HRS PRN 12/30/18 Reported Impression . 1. Acute respiratory failure. 2. Septic shock. 3. Lactic acidosis secondary to sepsis. 4. Pneumonia, gram-positive, gram-negative. 5. Pyuria. 6. Chronic sacrococcygeal pressure wounds, stage 4. 7. Progressive multiple sclerosis. 8. History of Clostridium difficile. 9. History of methicillin-resistant Staphylococcus aureus. 10.Tobacco dependence. 11. Factor V Leiden mutation.no PE/ DVT 12. Severe PCM 13. Low K, Mg Plan . 1. We will continue current support with oxygen supplementation. 2. Antibiotics per ID 3. IV fluids as needed 4. Speech evaluation. 5. Continue home meds. 6. DVT and GI prophylaxis. 7. Clostridium difficile prophylaxis per ID. 8. follow K, Mg d/w RN follow cxr as needed. skin fold on earlier CXR NARCISA BURTON MD Jun 13, 2019 10:33
[2019-06-13 12:11] LABS: BASO # 0.1 x10^3/uL (0.0-0.2); BASO % 1 % (0-3); EOS # 0.2 x10^3/uL (0.0-0.7); EOS % 2 % (0-3); HEMATOCRIT 29.5 % (36.0-47.0); HEMOGLOBIN 9.4 g/dL (12.0-15.5); LYMPH % 9 % (24-48); MEAN CORPUSCULAR HEMOGLOBIN 22 pg (25-35); MEAN CORPUSCULAR HGB CONC 32 g/dL (31-37); MEAN CORPUSCULAR VOLUME 70 fL (79-100); MONO # 0.7 x10^3/uL (0.0-1.1); MONO % 7 % (0-9); NEUT # 8.8 x10^3/uL (1.8-7.7); NEUT % 82 % (31-73); PLATELET COUNT 514 x10^3/uL (140-400); RED BLOOD COUNT 4.24 x10^6/uL (3.50-5.40); RED CELL DISTRIBUTION WIDTH 18.8 % (11.5-14.5); WHITE BLOOD COUNT 10.7 x10^3/uL (4.0-11.0)
[2019-06-13 12:36] LABS: ALBUMIN/GLOBULIN RATIO 0.5 (1.0-1.7); CALCIUM 8.2 mg/dL (8.5-10.1); CREATININE 0.4 mg/dL (0.6-1.0); GFR 172.6; POTASSIUM 3.4 mmol/L (3.5-5.1); TOTAL BILIRUBIN 0.2 mg/dL (0.2-1.0); TOTAL PROTEIN 6.1 g/dL (6.4-8.2)
[2019-06-13] MEDS ORDERED: POTASSIUM CHLORIDE 20 MEQ TABLET.ER. PO ONE (13:45)
--- NOTE | 2019-06-13 14:27 | RAD ---
Procedure: Ultrasound-guided placement of right internal jugular central venous catheter06/13/2019 2:23 PM Clinical Indication: caustic medications Discussion: The risks and benefits of the procedure were discussed the patient and/or their premium representative. Informed consent was obtained. A timeout procedure was performed. All elements of maximal sterile barrier technique including the use of a cap, mask, sterile gown, sterile gloves, large sterile sheet, appropriate hand hygiene, and 2% chlorhexidine for cutaneous antisepsis (or acceptable alternative antiseptic per current guidelines) were followed for this procedure. The patient was prepped and draped in the usual sterile fashion. Ultrasound interrogation of the right neck revealed patency and compressibility of the right internal jugular vein. A 21-gauge micropuncture was then used to gain access to this vein under ultrasound guidance. A hard copy ultrasound image was recorded. A guidewire was advanced centrally. 5 Mongolian sheath was placed. Over a wire following dilatation, a triple-lumen central venous catheter was advanced centrally. Catheter was found to flush and aspirate normally. Follow-up chest radiograph demonstrates tip at the cavoatrial junction. Catheter secured in place and a sterile dressing was applied. No immediate complications were identified. Impression: Successful ultrasound-guided placement of right internal jugular triple-lumen central venous catheter
--- NOTE | 2019-06-13 15:30 | RAD ---
EXAM: Chest, single view. HISTORY: Central line placement. COMPARISON: 06/12/2019 FINDINGS: Frontal views of the chest are obtained. There is a right internal jugular catheter with the tip in the right atrium. No pneumothorax is seen. There is suspected right lower lobe interstitial infiltrate with a small right pleural effusion. IMPRESSION: 1. Right internal jugular catheter with the tip in the right atrium. 2. Suspected right lower lobe interstitial infiltrate with small effusion. Electronically signed by: Cherri Fox MD (06/13/2019 3:27 PM) [place] [id number]
[2019-06-13] MEDS: APIXABAN 5 MG TABLET. PO SCH (21:02)
[2019-06-13] MEDS: ALPRAZolam 0.5 MG TABLET PO SCH (21:03)
[2019-06-13] MEDS: NYSTATIN 100,000 UNITS/ML 5 ML ORAL.SUSP. SWSW SCH (21:07)
[2019-06-14] VITALS (27 sets, daily range): BP systolic 65–134; BP diastolic 47–79
[2019-06-14] MEDS: PIPERACILLIN/TAZOBACTAM 3.375 GM in IV NORMAL SALINE 50ML 50 ML IV SCH ×4 (00:55→17:46)
[2019-06-14 07:06] LABS: HEMATOCRIT 27.9 % (36.0-47.0); RED BLOOD COUNT 4.05 x10^6/uL (3.50-5.40); RED CELL DISTRIBUTION WIDTH 18.4 % (11.5-14.5); WHITE BLOOD COUNT 7.3 x10^3/uL (4.0-11.0)
[2019-06-14 07:32] LABS: ALBUMIN/GLOBULIN RATIO 0.5 (1.0-1.7); CREATININE 0.3 mg/dL (0.6-1.0); GFR 240.6; POTASSIUM 3.5 mmol/L (3.5-5.1); TOTAL BILIRUBIN 0.3 mg/dL (0.2-1.0); TOTAL PROTEIN 5.9 g/dL (6.4-8.2)
[2019-06-14] MEDS: oxyCODONE/APAP 5/325 1 TAB TABLET PO PRN (07:51)
--- NOTE | 2019-06-14 08:01 | NUR ---
SS following up with discharge planning. Pt remains in ICU at this time and is currently on oxygen. Pt is a LTC resident from [facility] and is able to return when medically stable for discharge.
[2019-06-14] MEDS: POTASSIUM CHLORIDE 20 MEQ TABLET.ER. PO SCH (08:47)
[2019-06-14] MEDS: MULTIVITAMIN with MINERAL TABLET. PO SCH (08:47)
[2019-06-14] MEDS: APIXABAN 5 MG TABLET. PO SCH ×2 (08:48→21:34)
[2019-06-14] MEDS: FAMOTIDINE 20 MG TABLET. PO SCH ×2 (08:48→21:34)
[2019-06-14] MEDS: DULoxetine HCL 30 MG CAPSULE.DR PO SCH (08:48)
[2019-06-14] MEDS: OXYBUTYNIN CHLORIDE 5 MG TABLET PO SCH ×3 (08:48→21:34)
[2019-06-14] MEDS: LACTOBACILLUS RHAMNOSUS GG 1 CAPSULE. PO SCH ×2 (08:48→21:34)
[2019-06-14] MEDS: DANTROLENE SODIUM 25 MG CAPSULE PO SCH ×4 (08:48→21:34)
[2019-06-14] MEDS: CYCLOBENZAPRINE 10 MG TABLET. PO SCH ×3 (08:48→21:34)
[2019-06-14] MEDS: FERROUS SULFATE 325 MG TABLET. PO SCH (08:49)
[2019-06-14] MEDS: NYSTATIN 100,000 UNITS/ML 5 ML ORAL.SUSP. SWSW SCH ×4 (08:51→21:35)
[2019-06-14] MEDS: IV NORMAL SALINE 1000ML BAG 1,000 ML IV SCH ×2 (10:37→23:20)
--- NOTE | 2019-06-14 10:37 | PDOC ---
Infectious Disease Note Subjective Subjective Now off O2 Hypotensive - still on Levophed No fevers last 48 hours c/o leg spasms Denies chills/aches/N/V/D/SOA/dysphagia ROS ROS per HPI Vital Sign Vital Signs Vital Signs Date Time Temp Pulse Resp B/P (MAP) Pulse Ox O2 Delivery O2 Flow Rate FiO2 06/14/19 10:00 63 16 92/57 (69) 98 Room Air 06/14/19 07:00 98.1 98.1 06/14/19 06:00 2.0 Physical Exam PHYSICAL EXAM GENERAL: Alert, watching TV HEENT: [place], Oropharynx dry. NECK: Supple. LUNGS: Clear to auscultation. HEART: S1 and S2. ABDOMEN: Soft and nontender with bowel sounds present. GENITOURINARY: Indwelling Shafer in place (8-5). EXTREMITIES: No gross edema or cyanosis. Contractures and muscle atrophy. SKIN: Warm to touch. No signs of rash. Sacrococcygeal wound- clean (pic reviewed) NEUROLOGIC: Alert, answering questions appropriately. RIJ (06/13) without signs of complications Labs Lab Laboratory Tests Test 06/13/19 12:05 06/14/19 06:35 White Blood Count 10.7 x10^3/uL (4.0-11.0) 7.3 x10^3/uL (4.0-11.0) Red Blood Count 4.24 x10^6/uL (3.50-5.40) 4.05 x10^6/uL (3.50-5.40) Hemoglobin 9.4 g/dL (12.0-15.5) 9.0 g/dL (12.0-15.5) Hematocrit 29.5 % (36.0-47.0) 27.9 % (36.0-47.0) Mean Corpuscular Volume 70 fL (79-100) 69 fL (79-100) Mean Corpuscular Hemoglobin 22 pg (25-35) 22 pg (25-35) Mean Corpuscular Hemoglobin Concent 32 g/dL (31-37) 32 g/dL (31-37) Red Cell Distribution Width 18.8 % (11.5-14.5) 18.4 % (11.5-14.5) Platelet Count 514 x10^3/uL (140-400) 455 x10^3/uL (140-400) Neutrophils (%) (Auto) 82 % (31-73) Lymphocytes (%) (Auto) 9 % (24-48) Monocytes (%) (Auto) 7 % (0-9) Eosinophils (%) (Auto) 2 % (0-3) Basophils (%) (Auto) 1 % (0-3) Neutrophils # (Auto) 8.8 x10^3/uL (1.8-7.7) Lymphocytes # (Auto) 1.0 x10^3/uL (1.0-4.8) Monocytes # (Auto) 0.7 x10^3/uL (0.0-1.1) Eosinophils # (Auto) 0.2 x10^3/uL (0.0-0.7) Basophils # (Auto) 0.1 x10^3/uL (0.0-0.2) Sodium Level 141 mmol/L (136-145) 145 mmol/L (136-145) Potassium Level 3.4 mmol/L (3.5-5.1) 3.5 mmol/L (3.5-5.1) Chloride Level 106 mmol/L (98-107) 110 mmol/L (98-107) Carbon Dioxide Level 21 mmol/L (21-32) 24 mmol/L (21-32) Anion Gap 14 (6-14) 11 (6-14) Blood Urea Nitrogen 4 mg/dL (7-20) 2 mg/dL (7-20) Creatinine 0.4 mg/dL (0.6-1.0) 0.3 mg/dL (0.6-1.0) Estimated GFR (Cockcroft-Gault) 172.6 240.6 BUN/Creatinine Ratio 10 (6-20) 7 (6-20) Glucose Level 121 mg/dL (70-99) 82 mg/dL (70-99) Calcium Level 8.2 mg/dL (8.5-10.1) 8.0 mg/dL (8.5-10.1) Magnesium Level 2.0 mg/dL (1.8-2.4) Total Bilirubin 0.2 mg/dL (0.2-1.0) 0.3 mg/dL (0.2-1.0) Aspartate Amino Transf (AST/SGOT) 11 U/L (15-37) 8 U/L (15-37) Alanine Aminotransferase (ALT/SGPT) 6 U/L (14-59) 8 U/L (14-59) Alkaline Phosphatase 50 U/L (46-116) 44 U/L (46-116) Total Protein 6.1 g/dL (6.4-8.2) 5.9 g/dL (6.4-8.2) Albumin 2.0 g/dL (3.4-5.0) 2.0 g/dL (3.4-5.0) Albumin/Globulin Ratio 0.5 (1.0-1.7) 0.5 (1.0-1.7) CXR, 06/13 1. Right internal jugular catheter with the tip in the right atrium. 2. Suspected right lower lobe interstitial infiltrate with small effusion. Micro 06/11. BLOOD CULTURE Final GRAM POSITIVE COCCI IN CLUSTERS 2 SETS DRAWN, 1 OF 4 POSITIVE Objective Assessment BC + GPC (1 of 4 bottles), 06/11 Sepsis with lactic acidosis and hypotension requiring vasopressor support - weaning off Levophed HCAP Pyuria. Shafer chg 06/12. UC still pending Leukocytosis - improved Chronic sacrococcygeal pressure wound MS h/x C. diff colitis 12/2018 h/o MRSA, VRE and MDR infections h/o E. coli in urine Plan Plan of Care Cont Zyvox with h/o VRE and Zosyn Await GPC ID UC still pending Maintain aspiration precautions Wound team following Offloading On 3 of Levophed. On/off but clinically better Attending Co-Sign Attending Co-Sign The patient was seen and interviewed as well as examined at the bedside. The chart was reviewed. The case was discussed. Agree with the plan of care. AMY REESE APRN Jun 14, 2019 10:37 GARRY HUNTER MD Jun 14, 2019 12:07
--- NOTE | 2019-06-14 10:41 | PDOC ---
PULMONARY PROGRESS NOTES Subjective awake, no soa low dose levo Vitals Vital Signs Date Time Temp Pulse Resp B/P (MAP) Pulse Ox O2 Delivery O2 Flow Rate FiO2 06/14/19 10:36 16 97 Room Air 06/14/19 10:00 63 92/57 (69) 06/14/19 07:00 98.1 98.1 06/14/19 06:00 2.0 General: Alert, No acute distress Lungs: Other (decrease bases, few ant rhonchi) Cardiovascular: S1, S2 Abdomen: Soft, Non-tender Neuro Exam: Alert Extremities: No Edema Skin: Warm, Dry (resp effort imporved somehwat after fluids.) Labs Laboratory Tests Test 06/13/19 12:05 06/14/19 06:35 White Blood Count 10.7 x10^3/uL (4.0-11.0) 7.3 x10^3/uL (4.0-11.0) Red Blood Count 4.24 x10^6/uL (3.50-5.40) 4.05 x10^6/uL (3.50-5.40) Hemoglobin 9.4 g/dL (12.0-15.5) 9.0 g/dL (12.0-15.5) Hematocrit 29.5 % (36.0-47.0) 27.9 % (36.0-47.0) Mean Corpuscular Volume 70 fL (79-100) 69 fL (79-100) Mean Corpuscular Hemoglobin 22 pg (25-35) 22 pg (25-35) Mean Corpuscular Hemoglobin Concent 32 g/dL (31-37) 32 g/dL (31-37) Red Cell Distribution Width 18.8 % (11.5-14.5) 18.4 % (11.5-14.5) Platelet Count 514 x10^3/uL (140-400) 455 x10^3/uL (140-400) Neutrophils (%) (Auto) 82 % (31-73) Lymphocytes (%) (Auto) 9 % (24-48) Monocytes (%) (Auto) 7 % (0-9) Eosinophils (%) (Auto) 2 % (0-3) Basophils (%) (Auto) 1 % (0-3) Neutrophils # (Auto) 8.8 x10^3/uL (1.8-7.7) Lymphocytes # (Auto) 1.0 x10^3/uL (1.0-4.8) Monocytes # (Auto) 0.7 x10^3/uL (0.0-1.1) Eosinophils # (Auto) 0.2 x10^3/uL (0.0-0.7) Basophils # (Auto) 0.1 x10^3/uL (0.0-0.2) Sodium Level 141 mmol/L (136-145) 145 mmol/L (136-145) Potassium Level 3.4 mmol/L (3.5-5.1) 3.5 mmol/L (3.5-5.1) Chloride Level 106 mmol/L (98-107) 110 mmol/L (98-107) Carbon Dioxide Level 21 mmol/L (21-32) 24 mmol/L (21-32) Anion Gap 14 (6-14) 11 (6-14) Blood Urea Nitrogen 4 mg/dL (7-20) 2 mg/dL (7-20) Creatinine 0.4 mg/dL (0.6-1.0) 0.3 mg/dL (0.6-1.0) Estimated GFR (Cockcroft-Gault) 172.6 240.6 BUN/Creatinine Ratio 10 (6-20) 7 (6-20) Glucose Level 121 mg/dL (70-99) 82 mg/dL (70-99) Calcium Level 8.2 mg/dL (8.5-10.1) 8.0 mg/dL (8.5-10.1) Magnesium Level 2.0 mg/dL (1.8-2.4) Total Bilirubin 0.2 mg/dL (0.2-1.0) 0.3 mg/dL (0.2-1.0) Aspartate Amino Transf (AST/SGOT) 11 U/L (15-37) 8 U/L (15-37) Alanine Aminotransferase (ALT/SGPT) 6 U/L (14-59) 8 U/L (14-59) Alkaline Phosphatase 50 U/L (46-116) 44 U/L (46-116) Total Protein 6.1 g/dL (6.4-8.2) 5.9 g/dL (6.4-8.2) Albumin 2.0 g/dL (3.4-5.0) 2.0 g/dL (3.4-5.0) Albumin/Globulin Ratio 0.5 (1.0-1.7) 0.5 (1.0-1.7) Laboratory Tests Test 06/13/19 12:05 06/14/19 06:35 White Blood Count 10.7 x10^3/uL (4.0-11.0) 7.3 x10^3/uL (4.0-11.0) Red Blood Count 4.24 x10^6/uL (3.50-5.40) 4.05 x10^6/uL (3.50-5.40) Hemoglobin 9.4 g/dL (12.0-15.5) 9.0 g/dL (12.0-15.5) Hematocrit 29.5 % (36.0-47.0) 27.9 % (36.0-47.0) Mean Corpuscular Volume 70 fL (79-100) 69 fL (79-100) Mean Corpuscular Hemoglobin 22 pg (25-35) 22 pg (25-35) Mean Corpuscular Hemoglobin Concent 32 g/dL (31-37) 32 g/dL (31-37) Red Cell Distribution Width 18.8 % (11.5-14.5) 18.4 % (11.5-14.5) Platelet Count 514 x10^3/uL (140-400) 455 x10^3/uL (140-400) Neutrophils (%) (Auto) 82 % (31-73) Lymphocytes (%) (Auto) 9 % (24-48) Monocytes (%) (Auto) 7 % (0-9) Eosinophils (%) (Auto) 2 % (0-3) Basophils (%) (Auto) 1 % (0-3) Neutrophils # (Auto) 8.8 x10^3/uL (1.8-7.7) Lymphocytes # (Auto) 1.0 x10^3/uL (1.0-4.8) Monocytes # (Auto) 0.7 x10^3/uL (0.0-1.1) Eosinophils # (Auto) 0.2 x10^3/uL (0.0-0.7) Basophils # (Auto) 0.1 x10^3/uL (0.0-0.2) Sodium Level 141 mmol/L (136-145) 145 mmol/L (136-145) Potassium Level 3.4 mmol/L (3.5-5.1) 3.5 mmol/L (3.5-5.1) Chloride Level 106 mmol/L (98-107) 110 mmol/L (98-107) Carbon Dioxide Level 21 mmol/L (21-32) 24 mmol/L (21-32) Anion Gap 14 (6-14) 11 (6-14) Blood Urea Nitrogen 4 mg/dL (7-20) 2 mg/dL (7-20) Creatinine 0.4 mg/dL (0.6-1.0) 0.3 mg/dL (0.6-1.0) Estimated GFR (Cockcroft-Gault) 172.6 240.6 BUN/Creatinine Ratio 10 (6-20) 7 (6-20) Glucose Level 121 mg/dL (70-99) 82 mg/dL (70-99) Calcium Level 8.2 mg/dL (8.5-10.1) 8.0 mg/dL (8.5-10.1) Magnesium Level 2.0 mg/dL (1.8-2.4) Total Bilirubin 0.2 mg/dL (0.2-1.0) 0.3 mg/dL (0.2-1.0) Aspartate Amino Transf (AST/SGOT) 11 U/L (15-37) 8 U/L (15-37) Alanine Aminotransferase (ALT/SGPT) 6 U/L (14-59) 8 U/L (14-59) Alkaline Phosphatase 50 U/L (46-116) 44 U/L (46-116) Total Protein 6.1 g/dL (6.4-8.2) 5.9 g/dL (6.4-8.2) Albumin 2.0 g/dL (3.4-5.0) 2.0 g/dL (3.4-5.0) Albumin/Globulin Ratio 0.5 (1.0-1.7) 0.5 (1.0-1.7) Medications Active Scripts Medications Dose Route/Sig Max Daily Dose Days Date Category Augmentin 875-125 Tablet (Amoxicillin/Potassium Clav) 1 Each Tablet 1 Tab PO BID 5 05/29/19 Rx Oxycodone HCl ER (Oxycodone HCl) 10 Mg Tab.er.12h 10 Mg PO BID 05/24/19 Reported Dantrolene Sodium 25 Mg Capsule 75 Mg PO QID 05/24/19 Reported Acidophilus (Lactobacillus Acidophilus) 1 Each Tab.chew 2 Each PO BID 05/24/19 Reported Thera Tablet (Multivitamin with Folic Acid) 400 Mcg Tablet 400 Mcg PO DAILY 05/24/19 Reported Sennosides 8.6 Mg Tablet 8.6 Mg PO DAILY 05/24/19 Reported Percocet 5-325 Mg Tablet (Oxycodone/Acetaminophen) 1 Each Tablet 1 Tab PO PRN Q4HRS PRN 05/24/19 Reported Potassium Chloride 20 Meq Tablet.er 40 Meq PO DAILY 12/30/18 Reported Oxybutynin Chloride 5 Mg Tablet 5 Mg PO TID 12/30/18 Reported Zofran (Ondansetron Hcl) 4 Mg Tablet 1 Tab PO PRN Q4HRS PRN 12/30/18 Reported NICODERM CQ 14mg (Nicotine) 1 Each Patch.td24 1 Patch TP DAILY 12/30/18 Reported Loratadine 10 Mg Tablet 1 Tab PO DAILY 12/30/18 Reported Duoneb 0.5-3(2.5) Mg/3 Ml (Albuterol/Ipratropium) 3 Ml Ampul.neb 3 Ml NEB TID 12/30/18 Reported Mucinex (Guaifenesin) 600 Mg Tablet.er 1 Tab PO BID 12/30/18 Reported Ferrous Sulfate 325 Mg Tablet 325 Mg PO DAILY 12/30/18 Reported Famotidine 20 Mg Tablet 20 Mg PO BID 12/30/18 Reported Cymbalta (Duloxetine Hcl) 30 Mg Capsule.dr 30 Mg PO DAILY 12/30/18 Reported Baclofen 20 Mg Tablet 20 Mg PO QID 12/30/18 Reported Eliquis (Apixaban) 5 Mg Tablet 5 Mg PO BID 12/30/18 Reported Alprazolam 0.5 Mg Tablet 1 Tab PO HS 12/30/18 Reported Tylenol (Acetaminophen) 325 Mg Tablet 650 Mg PO PRN Q4HRS PRN 12/30/18 Reported Impression . 1. Acute respiratory failure. 2. Septic shock. 3. Lactic acidosis secondary to sepsis. 4. Pneumonia, gram-positive, gram-negative. 5. Pyuria. 6. Chronic sacrococcygeal pressure wounds, stage 4. 7. Progressive multiple sclerosis. 8. History of Clostridium difficile. 9. History of methicillin-resistant Staphylococcus aureus. 10.Tobacco dependence. 11. Factor V Leiden mutation.no PE/ DVT 12. Severe PCM 13. Low K, Mg, CORRECTED Plan . 1. We will continue current support with oxygen supplementation. 2. Antibiotics per ID 3. IV fluids as needed/wean off levo 4. Speech evaluation. 5. Continue home meds. 6. DVT and GI prophylaxis. 7. Clostridium difficile prophylaxis per ID. 8. follow K, Mg d/w RN follow cxr as needed. NARCISA BURTON MD Jun 14, 2019 10:41
[2019-06-14] MEDS: ALPRAZolam 0.5 MG TABLET PO SCH (21:34)
--- NOTE | 2019-06-14 22:02 | PN ---
DATE: 06/14/2019 SUBJECTIVE: The patient is resting, slightly propped up in bed, in no apparent respiratory distress, awake, alert, responding appropriately. Her Levophed was just discontinued. On questioning her, she denied any complaints. Nursing staff stated that she has generally uneventful night. PHYSICAL EXAMINATION: GENERAL: When I examined her, she was pale, cachectic. No jaundice, cyanosis or thyromegaly. No jugular venous distention. No limb edema. VITAL SIGNS: Her heart rate was 86, blood pressure was 117/66, temperature was 98.8, respiratory rate was 21 and her oxygen saturation was 97% on 2 liters of oxygen. HEAD, EYES, EARS, NOSE AND THROAT: Showed normocephalic, atraumatic. NECK: Supple. HEART: Showed normal first and second heart sounds with no gallop, rub or murmur. CHEST: Clear to auscultation. No crepitation or rhonchi. ABDOMEN: Scaphoid, soft, and nontender. NEUROLOGIC: She is awake, alert, responding appropriately. All cranial nerves intact. She has functional quadriplegia, neurogenic bladder requiring indwelling Shafer catheter. She has large stage 4 sacral decubitus ulcer. Her intake over the last 24 hours was 2200, output was 2050. LABORATORY DATA: As of this morning showed a white cell count 7300, hemoglobin 9, hematocrit 27, MCV 69, and platelet count 455,000. Her chemistry showed a serum sodium 141, potassium 3.4, chloride 106, bicarbonate 21, anion gap of 14, BUN 4, creatinine 0.4. Today's labs are still pending at the time of this dictation. Her prothrombin time was 18.9, INR 1.6. Urinalysis showed too numerous to count wbc's, many bacteria. Her blood culture showed a growth of Gram-positive cocci in clusters. Urine culture is still pending. ASSESSMENT: 1. Severe sepsis due to healthcare-associated pneumonia as well as urinary tract infection. Her blood culture has grown gram-positive cocci. The identification and sensitivity is still pending. 2. Hypertension for which she continues to be on Levophed. 3. Progressive multiple sclerosis. 4. Acute hypoxic respiratory failure. 5. Chronic sacrococcygeal decubitus ulcer. 6. History of Clostridium difficile colitis. 7. History of methicillin-resistant Staphylococcus aureus, tobacco dependence. 8. Factor V Leiden, quadriplegia with neurogenic bladder. YOLI MEJIA MD DR: JUJU/ronit JOB#: [id number] / [id number]
[2019-06-15] VITALS (17 sets, daily range): BP systolic 91–117; BP diastolic 62–85
[2019-06-15] MEDS: PIPERACILLIN/TAZOBACTAM 3.375 GM in IV NORMAL SALINE 50ML 50 ML IV SCH ×4 (00:08→17:44)
[2019-06-15 06:42] LABS: ALBUMIN 2.1 g/dL (3.4-5.0); ALBUMIN/GLOBULIN RATIO 0.6 (1.0-1.7); CALCIUM 8.2 mg/dL (8.5-10.1); CREATININE 0.3 mg/dL (0.6-1.0); GFR 240.6; POTASSIUM 3.7 mmol/L (3.5-5.1); TOTAL BILIRUBIN 0.2 mg/dL (0.2-1.0); TOTAL PROTEIN 5.8 g/dL (6.4-8.2)
--- NOTE | 2019-06-15 08:10 | NUR ---
Dr. Allen here to see patient re: portacath placement. Will follow patient and will evaluate for placement once stabilized and closer to discharge (blood pressure controlled and infection resolved).
[2019-06-15] MEDS: LACTOBACILLUS RHAMNOSUS GG 1 CAPSULE. PO SCH ×2 (08:17→21:28)
[2019-06-15] MEDS: DULoxetine HCL 30 MG CAPSULE.DR PO SCH (08:17)
[2019-06-15] MEDS: FAMOTIDINE 20 MG TABLET. PO SCH ×2 (08:17→21:28)
[2019-06-15] MEDS: APIXABAN 5 MG TABLET. PO SCH ×2 (08:17→21:28)
[2019-06-15] MEDS: MULTIVITAMIN with MINERAL TABLET. PO SCH (08:17)
[2019-06-15] MEDS: CYCLOBENZAPRINE 10 MG TABLET. PO SCH ×3 (08:17→21:28)
[2019-06-15] MEDS: POTASSIUM CHLORIDE 20 MEQ TABLET.ER. PO SCH (08:18)
[2019-06-15] MEDS: FERROUS SULFATE 325 MG TABLET. PO SCH (08:18)
[2019-06-15] MEDS: OXYBUTYNIN CHLORIDE 5 MG TABLET PO SCH ×3 (08:18→21:28)
--- NOTE | 2019-06-15 08:19 | PDOC2 ---
CONSULT Date of Consult Date of Consult DATE: 06/15/19 TIME: 08:12 Reason for Consult Reason for Consult: Request for Port-A-Cath placement for long-term venous access Referring Physician Referring Physician: Faina Identification/Chief Complaint Chief Complaint Fatigue Source Source: Chart review, Patient History of Present Illness Reason for Visit: 43-year-old female with progressive multiple sclerosis was admitted to the [facility] with pneumonia and gram-negative aisha bacteremia with sepsis. She has a history of poor venous access a central line was placed by interventional radiology for which she's getting her IV antibiotics and fluids at this time. She is needing long-term venous access and request for Port-A-Cath was made Past Medical History Cardiovascular: No pertinent hx Pulmonary: COPD, Pulmonary embolus CENTRAL NERVOUS SYSTEM: Other GI: Other Heme/Onc: Other Psych: Anxiety, Depression, Other Musculoskeletal: Other Infectious disease: Other Renal/: No pertinent hx Endocrine: No pertinent hx Past Surgical History Past Surgical History: Other Family History Family History: Other Social History ALCOHOL: none Drugs: None Lives: [facility] Current Problem List Problem List Problems Medical Problems: (1) Acute respiratory failure Status: Acute (2) HCAP (healthcare-associated pneumonia) Status: Acute (3) Hypokalemia Status: Acute (4) Hypomagnesemia Status: Acute (5) Multiple sclerosis, primary progressive Status: Chronic (6) Pyuria Status: Acute (7) Sepsis Status: Acute (8) Septic shock Status: Acute (9) Severe protein-calorie malnutrition Status: Chronic Current Medications Current Medications Current Medications Piperacillin Sod/ Tazobactam Sod (Zosyn Per Pharmacy) 1 each PRN DAILY PRN [facility] SEE COMMENTS; Start 06/11/19 at 23:45 Sodium Chloride 1,000 ml @ 1,000 mls/hr Q1H IV Last administered on 06/11/19at 23:45; Start 06/11/19 at 23:45; Stop 06/12/19 at 01:35; Status DC Vancomycin HCl (Vanco Per Pharmacy) 1 each PRN DAILY PRN [facility] SEE COMMENTS; Start 06/11/19 at 23:45; Status Cancel Prochlorperazine Edisylate (Compazine) 10 mg PRN Q4HRS PRN IV NAUSEA 1ST CHOICE; Start 06/12/19 at 01:00 Vancomycin HCl 1.5 gm/Sodium Chloride 500 ml @ 250 mls/hr 1X ONCE IV ; Start 06/12/19 at 02:00; Stop 06/12/19 at 03:59; Status Cancel Piperacillin Sod/ Tazobactam Sod 3.375 gm/Sodium Chloride 50 ml @ 100 mls/hr 1X ONCE IV Last administered on 06/12/19 01:30; Start 06/12/19 at 01:30; Stop 06/12/19 at 01:59; Status DC Linezolid/Dextrose 300 ml @ 300 mls/hr Q12HR IV Last administered on 06/14/19 21:35; Start 06/12/19 at 01:30 Sodium Chloride 1,000 ml @ 100 mls/hr Q10H IV Last administered on 06/13/19 08:11; Start 06/12/19 at 02:00; Stop 06/13/19 at 01:59; Status DC Piperacillin Sod/ Tazobactam Sod 3.375 gm/Sodium Chloride 50 ml @ 100 mls/hr Q6HRS IV Last administered on 06/15/19 05:51; Start 06/12/19 at 06:00 Norepinephrine Bitartrate 250 ml @ 11.652 mls/ hr CONT PRN IV SEE I/O RECORD Last administered on 06/13/19 03:46; Start 06/12/19 at 05:00 Acetaminophen (Tylenol) 650 mg PRN Q4HRS PRN PO HEADACHE / TEMP; Start 06/12/19 at 07:15 Alprazolam (Xanax) 0.5 mg HS PO Last administered on 06/14/19 21:35; Start 06/12/19 at 21:00 Duloxetine HCl (Cymbalta) 30 mg DAILY PO Last administered on 06/14/19 08:51; Start 06/12/19 at 09:00 Famotidine (Pepcid) 20 mg BID PO Last administered on 06/14/19 21:35; Start 06/12/19 at 09:00 Ferrous Sulfate (Feosol) 325 mg DAILY08 PO Last administered on 06/14/19 08:51; Start 06/12/19 at 08:00 Oxybutynin Chloride (Ditropan) 5 mg TID PO Last administered on 06/14/19 21:35; Start 06/12/19 at 09:00 Oxycodone/ Acetaminophen (Percocet 5/325) 1 tab PRN Q4HRS PRN PO PAIN Last administered on 06/14/19 07:51; Start 06/12/19 at 07:15 Cyclobenzaprine HCl (Flexeril) 10 mg TID PO Last administered on 06/14/19 21:35; Start 06/12/19 at 09:00 Dantrolene Sodium (Dantrium) 75 mg QID PO Last administered on 06/14/19 21:35; Start 06/12/19 at 09:00 Lactobacillus Rhamnosus (Culturelle) 1 cap BID PO Last administered on 06/14/19 21:35; Start 06/12/19 at 09:00 Magnesium Sulfate 50 ml @ 25 mls/hr 1X PRN PRN IV MAG<1.7; Start 06/13/19 at 08:15 Magnesium Sulfate 50 ml @ 25 mls/hr 1X ONCE IV Last administered on 06/13/19 08:14; Start 06/13/19 at 08:30; Stop 06/13/19 at 10:29; Status DC Sodium Chloride 1,000 ml @ 100 mls/hr Q10H IV Last administered on 06/14/19 23:23; Start 06/13/19 at 10:00 Apixaban (Eliquis) 5 mg BID PO Last administered on 06/14/19 21:35; Start 06/13/19 at 21:00 Multivitamins (Thera M Plus) 1 tab DAILY PO Last administered on 06/14/19 08 :51; Start 06/14/19 at 09:00 Potassium Chloride (Klor-Con) 40 meq [id number] PO Last administered on 06/14/19 08:51; Start 06/14/19 at 08:00 Potassium Chloride (Klor-Con) 40 meq 1X ONCE PO Last administered on 06/13/19 14:31; Start 06/13/19 at 13:45; Stop 06/13/19 at 13:46; Status DC Nystatin (Nystatin Oral Susp) 5 ml [id number] Last administered on 06/14/19 21:35; Start 06/13/19 at 21:00 Active Scripts Active Augmentin 875-125 Tablet (Amoxicillin/Potassium Clav) 1 Each Tablet 1 Tab PO BID 5 Days Reported Oxycodone HCl ER (Oxycodone HCl) 10 Mg Tab.er.12h 10 Mg PO BID Dantrolene Sodium 25 Mg Capsule 75 Mg PO QID Acidophilus (Lactobacillus Acidophilus) 1 Each Tab.chew 2 Each PO BID Thera Tablet (Multivitamin with Folic Acid) 400 Mcg Tablet 400 Mcg PO DAILY Sennosides 8.6 Mg Tablet 8.6 Mg PO DAILY Percocet 5-325 Mg Tablet (Oxycodone/Acetaminophen) 1 Each Tablet 1 Tab PO PRN Q4HRS PRN Potassium Chloride 20 Meq Tablet.er 40 Meq PO DAILY Oxybutynin Chloride 5 Mg Tablet 5 Mg PO TID Zofran (Ondansetron Hcl) 4 Mg Tablet 1 Tab PO PRN Q4HRS PRN NICODERM CQ 14mg (Nicotine) 1 Each Patch.td24 1 Patch TP DAILY Loratadine 10 Mg Tablet 1 Tab PO DAILY Duoneb 0.5-3(2.5) Mg/3 Ml (Albuterol/Ipratropium) 3 Ml Ampul.neb 3 Ml NEB TID Mucinex (Guaifenesin) 600 Mg Tablet.er 1 Tab PO BID Ferrous Sulfate 325 Mg Tablet 325 Mg PO DAILY Famotidine 20 Mg Tablet 20 Mg PO BID Cymbalta (Duloxetine Hcl) 30 Mg Capsule.dr 30 Mg PO DAILY Baclofen 20 Mg Tablet 20 Mg PO QID Eliquis (Apixaban) 5 Mg Tablet 5 Mg PO BID Alprazolam 0.5 Mg Tablet 1 Tab PO HS Tylenol (Acetaminophen) 325 Mg Tablet 650 Mg PO PRN Q4HRS PRN Allergies Allergies: Coded Allergies: I S O L A T I O N *CONTACT* (Verified Allergy, Unknown, 01/02/19) C.diff/mrsa No Known Medication Allergies (Verified Allergy, Unknown, 04/28/17) ROS Respiratory: YES: Shortness of breath Genitourinary: YES Incontinence Musculoskeletal: Yes Muscular Weakness Physical Exam General: Alert, Oriented X3, Cooperative, mild distress HEENT: Atraumatic, PERRLA, EOMI Heart: Regular rate, No murmurs Abdomen: Normal bowel sounds, Soft, No tenderness Extremities: Other (lower extremity contractures) Skin: Other (decubitus ulcer) Neuro: Normal speech Vitals VITALS Vital Signs Date Time Temp Pulse Resp B/P (MAP) Pulse Ox O2 Delivery O2 Flow Rate FiO2 06/15/19 06:00 98 16 102/62 (75) 98 Room Air 06/15/19 04:00 98.1 98.1 Labs Labs Laboratory Tests Test 06/13/19 12:05 06/14/19 06:35 06/15/19 06:00 White Blood Count 10.7 x10^3/uL (4.0-11.0) 7.3 x10^3/uL (4.0-11.0) Red Blood Count 4.24 x10^6/uL (3.50-5.40) 4.05 x10^6/uL (3.50-5.40) Hemoglobin 9.4 g/dL (12.0-15.5) 9.0 g/dL (12.0-15.5) Hematocrit 29.5 % (36.0-47.0) 27.9 % (36.0-47.0) Mean Corpuscular Volume 70 fL (79-100) 69 fL (79-100) Mean Corpuscular Hemoglobin 22 pg (25-35) 22 pg (25-35) Mean Corpuscular Hemoglobin Concent 32 g/dL (31-37) 32 g/dL (31-37) Red Cell Distribution Width 18.8 % (11.5-14.5) 18.4 % (11.5-14.5) Platelet Count 514 x10^3/uL (140-400) 455 x10^3/uL (140-400) Neutrophils (%) (Auto) 82 % (31-73) Lymphocytes (%) (Auto) 9 % (24-48) Monocytes (%) (Auto) 7 % (0-9) Eosinophils (%) (Auto) 2 % (0-3) Basophils (%) (Auto) 1 % (0-3) Neutrophils # (Auto) 8.8 x10^3/uL (1.8-7.7) Lymphocytes # (Auto) 1.0 x10^3/uL (1.0-4.8) Monocytes # (Auto) 0.7 x10^3/uL (0.0-1.1) Eosinophils # (Auto) 0.2 x10^3/uL (0.0-0.7) Basophils # (Auto) 0.1 x10^3/uL (0.0-0.2) Sodium Level 141 mmol/L (136-145) 145 mmol/L (136-145) 141 mmol/L (136-145) Potassium Level 3.4 mmol/L (3.5-5.1) 3.5 mmol/L (3.5-5.1) 3.7 mmol/L (3.5-5.1) Chloride Level 106 mmol/L (98-107) 110 mmol/L (98-107) 107 mmol/L (98-107) Carbon Dioxide Level 21 mmol/L (21-32) 24 mmol/L (21-32) 26 mmol/L (21-32) Anion Gap 14 (6-14) 11 (6-14) 8 (6-14) Blood Urea Nitrogen 4 mg/dL (7-20) 2 mg/dL (7-20) 4 mg/dL (7-20) Creatinine 0.4 mg/dL (0.6-1.0) 0.3 mg/dL (0.6-1.0) 0.3 mg/dL (0.6-1.0) Estimated GFR (Cockcroft-Gault) 172.6 240.6 240.6 BUN/Creatinine Ratio 10 (6-20) 7 (6-20) 13 (6-20) Glucose Level 121 mg/dL (70-99) 82 mg/dL (70-99) 73 mg/dL (70-99) Calcium Level 8.2 mg/dL (8.5-10.1) 8.0 mg/dL (8.5-10.1) 8.2 mg/dL (8.5-10.1) Magnesium Level 2.0 mg/dL (1.8-2.4) Total Bilirubin 0.2 mg/dL (0.2-1.0) 0.3 mg/dL (0.2-1.0) 0.2 mg/dL (0.2-1.0) Aspartate Amino Transf (AST/SGOT) 11 U/L (15-37) 8 U/L (15-37) 7 U/L (15-37) Alanine Aminotransferase (ALT/SGPT) 6 U/L (14-59) 8 U/L (14-59) 7 U/L (14-59) Alkaline Phosphatase 50 U/L (46-116) 44 U/L (46-116) 43 U/L (46-116) Total Protein 6.1 g/dL (6.4-8.2) 5.9 g/dL (6.4-8.2) 5.8 g/dL (6.4-8.2) Albumin 2.0 g/dL (3.4-5.0) 2.0 g/dL (3.4-5.0) 2.1 g/dL (3.4-5.0) Albumin/Globulin Ratio 0.5 (1.0-1.7) 0.5 (1.0-1.7) 0.6 (1.0-1.7) Laboratory Tests Test 06/15/19 06:00 Sodium Level 141 mmol/L (136-145) Potassium Level 3.7 mmol/L (3.5-5.1) Chloride Level 107 mmol/L (98-107) Carbon Dioxide Level 26 mmol/L (21-32) Anion Gap 8 (6-14) Blood Urea Nitrogen 4 mg/dL (7-20) Creatinine 0.3 mg/dL (0.6-1.0) Estimated GFR (Cockcroft-Gault) 240.6 BUN/Creatinine Ratio 13 (6-20) Glucose Level 73 mg/dL (70-99) Calcium Level 8.2 mg/dL (8.5-10.1) Total Bilirubin 0.2 mg/dL (0.2-1.0) Aspartate Amino Transf (AST/SGOT) 7 U/L (15-37) Alanine Aminotransferase (ALT/SGPT) 7 U/L (14-59) Alkaline Phosphatase 43 U/L (46-116) Total Protein 5.8 g/dL (6.4-8.2) Albumin 2.1 g/dL (3.4-5.0) Albumin/Globulin Ratio 0.6 (1.0-1.7) Assessment/Plan Assessment/Plan Request for long-term venous access. In light of her current condition and bacteremia would not place a permanent venous access until this is cleared we'll schedule for closer to the time when she is being discharged. MARCIN QUINN MD Jun 15, 2019 08:19
--- NOTE | 2019-06-15 08:48 | PDOC ---
Infectious Disease Note Subjective Subjective Not sleeping well at night d/t noise Now off O2 and pressor support No fevers last 72 hours Denies chills/aches/N/V/D/SOA/dysphagia ROS ROS per HPI Vital Sign Vital Signs Vital Signs Date Time Temp Pulse Resp B/P (MAP) Pulse Ox O2 Delivery O2 Flow Rate FiO2 06/15/19 06:00 98 16 102/62 (75) 98 Room Air 06/15/19 04:00 98.1 98.1 Physical Exam PHYSICAL EXAM GENERAL: Alert, watching TV HEENT: KIMBERLY, Oropharynx dry. NECK: Supple. LUNGS: Clear to auscultation. HEART: S1 and S2. ABDOMEN: Soft and nontender with bowel sounds present. GENITOURINARY: Indwelling Shafer in place (8-5). EXTREMITIES: No gross edema or cyanosis. Contractures and muscle atrophy. SKIN: Warm to touch. No signs of rash. Sacrococcygeal wound- clean (pic reviewed) NEUROLOGIC: Alert, answering questions appropriately. RIJ (06/13) without signs of complications Labs Lab Laboratory Tests Test 06/15/19 06:00 Sodium Level 141 mmol/L (136-145) Potassium Level 3.7 mmol/L (3.5-5.1) Chloride Level 107 mmol/L (98-107) Carbon Dioxide Level 26 mmol/L (21-32) Anion Gap 8 (6-14) Blood Urea Nitrogen 4 mg/dL (7-20) Creatinine 0.3 mg/dL (0.6-1.0) Estimated GFR (Cockcroft-Gault) 240.6 BUN/Creatinine Ratio 13 (6-20) Glucose Level 73 mg/dL (70-99) Calcium Level 8.2 mg/dL (8.5-10.1) Total Bilirubin 0.2 mg/dL (0.2-1.0) Aspartate Amino Transf (AST/SGOT) 7 U/L (15-37) Alanine Aminotransferase (ALT/SGPT) 7 U/L (14-59) Alkaline Phosphatase 43 U/L (46-116) Total Protein 5.8 g/dL (6.4-8.2) Albumin 2.1 g/dL (3.4-5.0) Albumin/Globulin Ratio 0.6 (1.0-1.7) Micro 06/11. BLOOD CULTURE Final GRAM POSITIVE COCCI IN CLUSTERS 2 SETS DRAWN, 1 OF 4 POSITIVE 06/12. URINE CULTURE RES 1 Preliminary Gram negative rods Greater than 100,000 colony forming units per mL Objective Assessment BC + GPC (1 of 4 bottles), 06/11 Sepsis with lactic acidosis and hypotension, off vasopressor support HCAP Pyuria. Shafer chg 06/12. GNR Leukocytosis - improved Chronic sacrococcygeal pressure wound MS h/x C. diff colitis 12/2018 h/o MRSA, VRE and MDR infections h/o E. coli in urine Plan Plan of Care Cont Zyvox with h/o VRE and Zosyn Await GPC ID in blood and GNR ID in urine Maintain aspiration precautions Wound team following Offloading Await placement of Suprapubic D/w nursing Attending Co-Sign Attending Co-Sign The patient was seen and interviewed as well as examined at the bedside. The chart was reviewed. The case was discussed. Agree with the plan of care. AMY REESE APRN Jun 15, 2019 08:48 GARRY HUNTER MD Jun 15, 2019 16:11
[2019-06-15] MEDS: NYSTATIN 100,000 UNITS/ML 5 ML ORAL.SUSP. SWSW SCH ×4 (09:25→21:29)
[2019-06-15] MEDS: DANTROLENE SODIUM 25 MG CAPSULE PO SCH ×4 (09:25→21:29)
--- NOTE | 2019-06-15 10:45 | PDOC2 ---
ZEYNEP AJ FORMATION FRACTURING OPERATOR 06/15/19 1045: UROLOGY CONSULT Date of Consult Date of Consult DATE: 06/15/19 TIME: 10:38 Reason for Consult Reason for Consult: SP tube placement Identification/Chief Complaint Chief Complaint SP catheter tube placement. Source Source: Patient History of Present Illness Reason for Visit: This 43 year old female has progressive multiple sclerosis with functional paraplegia and normally resides at [facility]. She started to have fevers at the facility and Dr. Lucero admitted her to [place] and then here when her condition started to worsen. She was diagnosed with pneumonia in addition to her other chronic medical problems. Today Dr. Lucero has requested Urology consult for possible SP catheter placement as patient has suffered from multiple wounds and contracted lower limbs, making traditional catheter changes for her neurogenic bladder challenging for her. Also she has had 5 serious UTI's over the last year. She is open to the possibility of having an SP catheter placed. Past Medical History Cardiovascular: No pertinent hx Pulmonary: COPD, Pulmonary embolus CENTRAL NERVOUS SYSTEM: Other GI: Other Heme/Onc: Other Psych: Anxiety, Depression, Other Musculoskeletal: Other Infectious disease: Other Renal/: No pertinent hx Endocrine: No pertinent hx Past Surgical History Past Surgical History: Other Family History Family History: Other Social History ALCOHOL: none Drugs: None Lives: Residential Current Problem List Problems: (1) Complicated UTI (urinary tract infection) Allergies Allergies: Coded Allergies: I S O L A T I O N *CONTACT* (Verified Allergy, Unknown, 01/02/19) C.diff/mrsa No Known Medication Allergies (Verified Allergy, Unknown, 04/28/17) ROS Review Of Systems: CONSTITUTIONAL: No fever or chills EYES: No recent changes SKIN: No rash or itching CARDIOVASCULAR: No chest pain, syncope, palpitations, or edema RESPIRATORY: No SOB or cough GASTROINTESTINAL: No nausea, vomiting or abdominal pain NEUROLOGICAL: No headaches or weakness ENDOCRINE: No cold or heat intolerance GENITOURINARY: + Shafer catheter in place draining clear yellow urine. MUSCULOSKELETAL: paraplegic, progressive MS LYMPHATICS: No enlarged lymph nodes PSYCHIATRIC: No anxiety or depression Physical Exam Physical Exam: General: Pleasant, no acute distress, well groomed Eyes: conjunctiva anicteric, eyes full range of motion ENT: moist oral mucosa, normal dentition Neck: Trachea midline, no masses Respiratory: unlabored breathing, not using accessory muscles, Abdomen: nontender, nondistended, no hepatosplenomegaly, no masses Musculoskeletal: Contracted lower limbs, paraplegic : Shafer catheter in place draining clear yellow urine. Skin: no rashes or skin lesions on visualized skin Psych: normal mood, affect. Alert and oriented x 3. Vitals VITALS Vital Signs Date Time Temp Pulse Resp B/P (MAP) Pulse Ox O2 Delivery O2 Flow Rate FiO2 06/15/19 10:00 101 18 112/71 (85) 99 Room Air 06/15/19 07:00 98.1 98.1 Labs Labs Laboratory Tests Test 06/13/19 12:05 06/14/19 06:35 06/15/19 06:00 White Blood Count 10.7 x10^3/uL (4.0-11.0) 7.3 x10^3/uL (4.0-11.0) Red Blood Count 4.24 x10^6/uL (3.50-5.40) 4.05 x10^6/uL (3.50-5.40) Hemoglobin 9.4 g/dL (12.0-15.5) 9.0 g/dL (12.0-15.5) Hematocrit 29.5 % (36.0-47.0) 27.9 % (36.0-47.0) Mean Corpuscular Volume 70 fL (79-100) 69 fL (79-100) Mean Corpuscular Hemoglobin 22 pg (25-35) 22 pg (25-35) Mean Corpuscular Hemoglobin Concent 32 g/dL (31-37) 32 g/dL (31-37) Red Cell Distribution Width 18.8 % (11.5-14.5) 18.4 % (11.5-14.5) Platelet Count 514 x10^3/uL (140-400) 455 x10^3/uL (140-400) Neutrophils (%) (Auto) 82 % (31-73) Lymphocytes (%) (Auto) 9 % (24-48) Monocytes (%) (Auto) 7 % (0-9) Eosinophils (%) (Auto) 2 % (0-3) Basophils (%) (Auto) 1 % (0-3) Neutrophils # (Auto) 8.8 x10^3/uL (1.8-7.7) Lymphocytes # (Auto) 1.0 x10^3/uL (1.0-4.8) Monocytes # (Auto) 0.7 x10^3/uL (0.0-1.1) Eosinophils # (Auto) 0.2 x10^3/uL (0.0-0.7) Basophils # (Auto) 0.1 x10^3/uL (0.0-0.2) Sodium Level 141 mmol/L (136-145) 145 mmol/L (136-145) 141 mmol/L (136-145) Potassium Level 3.4 mmol/L (3.5-5.1) 3.5 mmol/L (3.5-5.1) 3.7 mmol/L (3.5-5.1) Chloride Level 106 mmol/L (98-107) 110 mmol/L (98-107) 107 mmol/L (98-107) Carbon Dioxide Level 21 mmol/L (21-32) 24 mmol/L (21-32) 26 mmol/L (21-32) Anion Gap 14 (6-14) 11 (6-14) 8 (6-14) Blood Urea Nitrogen 4 mg/dL (7-20) 2 mg/dL (7-20) 4 mg/dL (7-20) Creatinine 0.4 mg/dL (0.6-1.0) 0.3 mg/dL (0.6-1.0) 0.3 mg/dL (0.6-1.0) Estimated GFR (Cockcroft-Gault) 172.6 240.6 240.6 BUN/Creatinine Ratio 10 (6-20) 7 (6-20) 13 (6-20) Glucose Level 121 mg/dL (70-99) 82 mg/dL (70-99) 73 mg/dL (70-99) Calcium Level 8.2 mg/dL (8.5-10.1) 8.0 mg/dL (8.5-10.1) 8.2 mg/dL (8.5-10.1) Magnesium Level 2.0 mg/dL (1.8-2.4) Total Bilirubin 0.2 mg/dL (0.2-1.0) 0.3 mg/dL (0.2-1.0) 0.2 mg/dL (0.2-1.0) Aspartate Amino Transf (AST/SGOT) 11 U/L (15-37) 8 U/L (15-37) 7 U/L (15-37) Alanine Aminotransferase (ALT/SGPT) 6 U/L (14-59) 8 U/L (14-59) 7 U/L (14-59) Alkaline Phosphatase 50 U/L (46-116) 44 U/L (46-116) 43 U/L (46-116) Total Protein 6.1 g/dL (6.4-8.2) 5.9 g/dL (6.4-8.2) 5.8 g/dL (6.4-8.2) Albumin 2.0 g/dL (3.4-5.0) 2.0 g/dL (3.4-5.0) 2.1 g/dL (3.4-5.0) Albumin/Globulin Ratio 0.5 (1.0-1.7) 0.5 (1.0-1.7) 0.6 (1.0-1.7) Laboratory Tests Test 06/15/19 06:00 Sodium Level 141 mmol/L (136-145) Potassium Level 3.7 mmol/L (3.5-5.1) Chloride Level 107 mmol/L (98-107) Carbon Dioxide Level 26 mmol/L (21-32) Anion Gap 8 (6-14) Blood Urea Nitrogen 4 mg/dL (7-20) Creatinine 0.3 mg/dL (0.6-1.0) Estimated GFR (Cockcroft-Gault) 240.6 BUN/Creatinine Ratio 13 (6-20) Glucose Level 73 mg/dL (70-99) Calcium Level 8.2 mg/dL (8.5-10.1) Total Bilirubin 0.2 mg/dL (0.2-1.0) Aspartate Amino Transf (AST/SGOT) 7 U/L (15-37) Alanine Aminotransferase (ALT/SGPT) 7 U/L (14-59) Alkaline Phosphatase 43 U/L (46-116) Total Protein 5.8 g/dL (6.4-8.2) Albumin 2.1 g/dL (3.4-5.0) Albumin/Globulin Ratio 0.6 (1.0-1.7) Assessment/Plan Assessment/Plan Discussed SP tube with patient, risks vs benefits of device and maintenance. Pt is interested in having SP tube placed. Will consult IR for placement, although patient understands that her infection will need to be clear before this can be placed. Dr. Gilliam to round on patient later today or tomorrow MARC GILLIAM MD 06/15/19 1457: UROLOGY CONSULT Assessment/Plan Assessment/Plan Patient seen and examined. Agree with assessment and plan. SP tube should lower her risk of UTIs and sacral wounds. She has significant lower extremity contractures so SP tube placement by usual urologic blind approach will be challenging - recommend IR placement with image guidance. SP tube placement not urgent, recommend delay placement until next week to allow for UTI treatment first. ZEYNEP AJ APRN Jun 15, 2019 10:45 MARC GILLIAM MD Jun 15, 2019 16:59
[2019-06-15 11:01] LABS: BILIRUBIN,URINE NEGATIVE (NEG); CLARITY,URINE CLEAR; COLOR,URINE YELLOW; NITRITE,URINE NEGATIVE (NEG); PROTEIN,URINE NEGATIVE (NEG-TRACE); UROBILINOGEN,URINE 0.2 mg/dL (0.2 mg/dL)
[2019-06-15 11:12] LABS: BACTERIA,URINE FEW /HPF (0-FEW); RBC,URINE 0 /HPF (0-2); SQUAMOUS EPITHELIAL CELL,UR FEW /LPF
--- NOTE | 2019-06-15 11:31 | NUR ---
Dr. Taylor notified of consult for suprapubic catheter. Patient must be off blood thinners for a minimum of 40 hours before placement. Hold Eliquist after wednesday morning dose.
--- NOTE | 2019-06-15 11:39 | PDOC ---
PULMONARY PROGRESS NOTES Subjective awake, no soa off levo Vitals Vital Signs Date Time Temp Pulse Resp B/P (MAP) Pulse Ox O2 Delivery O2 Flow Rate FiO2 06/15/19 10:00 101 18 112/71 (85) 99 Room Air 06/15/19 07:00 98.1 98.1 General: Alert, No acute distress Lungs: Other (decrease bases,) Cardiovascular: S1, S2 Abdomen: Soft, Non-tender Neuro Exam: Alert Extremities: No Edema Skin: Warm, Dry (resp effort imporved somehwat after fluids.) Labs Laboratory Tests Test 06/13/19 12:05 06/14/19 06:35 06/15/19 06:00 06/15/19 10:45 White Blood Count 10.7 x10^3/uL (4.0-11.0) 7.3 x10^3/uL (4.0-11.0) Red Blood Count 4.24 x10^6/uL (3.50-5.40) 4.05 x10^6/uL (3.50-5.40) Hemoglobin 9.4 g/dL (12.0-15.5) 9.0 g/dL (12.0-15.5) Hematocrit 29.5 % (36.0-47.0) 27.9 % (36.0-47.0) Mean Corpuscular Volume 70 fL (79-100) 69 fL (79-100) Mean Corpuscular Hemoglobin 22 pg (25-35) 22 pg (25-35) Mean Corpuscular Hemoglobin Concent 32 g/dL (31-37) 32 g/dL (31-37) Red Cell Distribution Width 18.8 % (11.5-14.5) 18.4 % (11.5-14.5) Platelet Count 514 x10^3/uL (140-400) 455 x10^3/uL (140-400) Neutrophils (%) (Auto) 82 % (31-73) Lymphocytes (%) (Auto) 9 % (24-48) Monocytes (%) (Auto) 7 % (0-9) Eosinophils (%) (Auto) 2 % (0-3) Basophils (%) (Auto) 1 % (0-3) Neutrophils # (Auto) 8.8 x10^3/uL (1.8-7.7) Lymphocytes # (Auto) 1.0 x10^3/uL (1.0-4.8) Monocytes # (Auto) 0.7 x10^3/uL (0.0-1.1) Eosinophils # (Auto) 0.2 x10^3/uL (0.0-0.7) Basophils # (Auto) 0.1 x10^3/uL (0.0-0.2) Sodium Level 141 mmol/L (136-145) 145 mmol/L (136-145) 141 mmol/L (136-145) Potassium Level 3.4 mmol/L (3.5-5.1) 3.5 mmol/L (3.5-5.1) 3.7 mmol/L (3.5-5.1) Chloride Level 106 mmol/L (98-107) 110 mmol/L (98-107) 107 mmol/L (98-107) Carbon Dioxide Level 21 mmol/L (21-32) 24 mmol/L (21-32) 26 mmol/L (21-32) Anion Gap 14 (6-14) 11 (6-14) 8 (6-14) Blood Urea Nitrogen 4 mg/dL (7-20) 2 mg/dL (7-20) 4 mg/dL (7-20) Creatinine 0.4 mg/dL (0.6-1.0) 0.3 mg/dL (0.6-1.0) 0.3 mg/dL (0.6-1.0) Estimated GFR (Cockcroft-Gault) 172.6 240.6 240.6 BUN/Creatinine Ratio 10 (6-20) 7 (6-20) 13 (6-20) Glucose Level 121 mg/dL (70-99) 82 mg/dL (70-99) 73 mg/dL (70-99) Calcium Level 8.2 mg/dL (8.5-10.1) 8.0 mg/dL (8.5-10.1) 8.2 mg/dL (8.5-10.1) Magnesium Level 2.0 mg/dL (1.8-2.4) Total Bilirubin 0.2 mg/dL (0.2-1.0) 0.3 mg/dL (0.2-1.0) 0.2 mg/dL (0.2-1.0) Aspartate Amino Transf (AST/SGOT) 11 U/L (15-37) 8 U/L (15-37) 7 U/L (15-37) Alanine Aminotransferase (ALT/SGPT) 6 U/L (14-59) 8 U/L (14-59) 7 U/L (14-59) Alkaline Phosphatase 50 U/L (46-116) 44 U/L (46-116) 43 U/L (46-116) Total Protein 6.1 g/dL (6.4-8.2) 5.9 g/dL (6.4-8.2) 5.8 g/dL (6.4-8.2) Albumin 2.0 g/dL (3.4-5.0) 2.0 g/dL (3.4-5.0) 2.1 g/dL (3.4-5.0) Albumin/Globulin Ratio 0.5 (1.0-1.7) 0.5 (1.0-1.7) 0.6 (1.0-1.7) Urine Collection Type Unknown Urine Color Yellow Urine Clarity Clear Urine pH 8.0 Urine Specific Ingram 1.010 Urine Protein Negative mg/dL (NEG-TRACE) Urine Glucose (UA) Negative mg/dL (NEG) Urine Ketones (Stick) Negative mg/dL (NEG) Urine Blood Negative (NEG) Urine Nitrite Negative (NEG) Urine Bilirubin Negative (NEG) Urine Urobilinogen Dipstick 0.2 mg/dL (0.2 mg/dL) Urine Leukocyte Esterase Trace (NEG) Urine RBC 0 /HPF (0-2) Urine WBC 1-4 /HPF (0-4) Urine Squamous Epithelial Cells Few /LPF Urine Bacteria Few /HPF (0-FEW) Laboratory Tests Test 06/15/19 06:00 06/15/19 10:45 Sodium Level 141 mmol/L (136-145) Potassium Level 3.7 mmol/L (3.5-5.1) Chloride Level 107 mmol/L (98-107) Carbon Dioxide Level 26 mmol/L (21-32) Anion Gap 8 (6-14) Blood Urea Nitrogen 4 mg/dL (7-20) Creatinine 0.3 mg/dL (0.6-1.0) Estimated GFR (Cockcroft-Gault) 240.6 BUN/Creatinine Ratio 13 (6-20) Glucose Level 73 mg/dL (70-99) Calcium Level 8.2 mg/dL (8.5-10.1) Total Bilirubin 0.2 mg/dL (0.2-1.0) Aspartate Amino Transf (AST/SGOT) 7 U/L (15-37) Alanine Aminotransferase (ALT/SGPT) 7 U/L (14-59) Alkaline Phosphatase 43 U/L (46-116) Total Protein 5.8 g/dL (6.4-8.2) Albumin 2.1 g/dL (3.4-5.0) Albumin/Globulin Ratio 0.6 (1.0-1.7) Urine Collection Type Unknown Urine Color Yellow Urine Clarity Clear Urine pH 8.0 Urine Specific Ingram 1.010 Urine Protein Negative mg/dL (NEG-TRACE) Urine Glucose (UA) Negative mg/dL (NEG) Urine Ketones (Stick) Negative mg/dL (NEG) Urine Blood Negative (NEG) Urine Nitrite Negative (NEG) Urine Bilirubin Negative (NEG) Urine Urobilinogen Dipstick 0.2 mg/dL (0.2 mg/dL) Urine Leukocyte Esterase Trace (NEG) Urine RBC 0 /HPF (0-2) Urine WBC 1-4 /HPF (0-4) Urine Squamous Epithelial Cells Few /LPF Urine Bacteria Few /HPF (0-FEW) Medications Active Scripts Medications Dose Route/Sig Max Daily Dose Days Date Category Augmentin 875-125 Tablet (Amoxicillin/Potassium Clav) 1 Each Tablet 1 Tab PO BID 5 05/29/19 Rx Oxycodone HCl ER (Oxycodone HCl) 10 Mg Tab.er.12h 10 Mg PO BID 05/24/19 Reported Dantrolene Sodium 25 Mg Capsule 75 Mg PO QID 05/24/19 Reported Acidophilus (Lactobacillus Acidophilus) 1 Each Tab.chew 2 Each PO BID 05/24/19 Reported Thera Tablet (Multivitamin with Folic Acid) 400 Mcg Tablet 400 Mcg PO DAILY 05/24/19 Reported Sennosides 8.6 Mg Tablet 8.6 Mg PO DAILY 05/24/19 Reported Percocet 5-325 Mg Tablet (Oxycodone/Acetaminophen) 1 Each Tablet 1 Tab PO PRN Q4HRS PRN 05/24/19 Reported Potassium Chloride 20 Meq Tablet.er 40 Meq PO DAILY 12/30/18 Reported Oxybutynin Chloride 5 Mg Tablet 5 Mg PO TID 12/30/18 Reported Zofran (Ondansetron Hcl) 4 Mg Tablet 1 Tab PO PRN Q4HRS PRN 12/30/18 Reported NICODERM CQ 14mg (Nicotine) 1 Each Patch.td24 1 Patch TP DAILY 12/30/18 Reported Loratadine 10 Mg Tablet 1 Tab PO DAILY 12/30/18 Reported Duoneb 0.5-3(2.5) Mg/3 Ml (Albuterol/Ipratropium) 3 Ml Ampul.neb 3 Ml NEB TID 12/30/18 Reported Mucinex (Guaifenesin) 600 Mg Tablet.er 1 Tab PO BID 12/30/18 Reported Ferrous Sulfate 325 Mg Tablet 325 Mg PO DAILY 12/30/18 Reported Famotidine 20 Mg Tablet 20 Mg PO BID 12/30/18 Reported Cymbalta (Duloxetine Hcl) 30 Mg Capsule.dr 30 Mg PO DAILY 12/30/18 Reported Baclofen 20 Mg Tablet 20 Mg PO QID 12/30/18 Reported Eliquis (Apixaban) 5 Mg Tablet 5 Mg PO BID 12/30/18 Reported Alprazolam 0.5 Mg Tablet 1 Tab PO HS 12/30/18 Reported Tylenol (Acetaminophen) 325 Mg Tablet 650 Mg PO PRN Q4HRS PRN 12/30/18 Reported Impression . 1. Acute respiratory failure. 2. Septic shock. 3. Lactic acidosis secondary to sepsis. 4. Pneumonia, gram-positive, gram-negative. 5. Pyuria. 6. Chronic sacrococcygeal pressure wounds, stage 4. 7. Progressive multiple sclerosis. 8. History of Clostridium difficile. 9. History of methicillin-resistant Staphylococcus aureus. 10.Tobacco dependence. 11. Factor V Leiden mutation.no PE/ DVT 12. Severe PCM 13. Low K, Mg, CORRECTED 06/11. BLOOD CULTURE Final GRAM POSITIVE COCCI IN CLUSTERS 2 SETS DRAWN, 1 OF 4 POSITIVE Plan . 1. We will continue current support with oxygen supplementation. 2. Antibiotics per ID 3. off levo 4. Speech evaluation. 5. Continue home meds. 6. DVT and GI prophylaxis. 7. Clostridium difficile prophylaxis per ID. 8. follow K, Mg d/w RN follow cxr as needed. transfer to floor NARCISA BURTON MD Jun 15, 2019 11:39
--- NOTE | 2019-06-15 11:45 | NUR ---
Patient transferred to 500 specialty bed to transfer to room 576. All personal belongings sent with patient including cell phone and data input clerk. Taken by transportation staff.
[2019-06-15] MEDS: IV NORMAL SALINE 1000ML BAG 1,000 ML IV SCH ×2 (12:00→12:37)
--- NOTE | 2019-06-15 15:06 | NUR ---
SS following up with discharge planning. Pt transferred to room 576. Pt is from [facility] and is able to return when medically stable for discharge. JORGE, Tony, notified.
--- NOTE | 2019-06-15 20:59 | PN ---
DATE: 06/15/2019 SUBJECTIVE: The patient is resting, slightly propped up in bed, in no apparent distress. She is off her Levophed, has had no further episodes of fever. She is maintaining her oxygen saturation at 98% on room air. OBJECTIVE: GENERAL: When I examined her this morning, she looked pale, but no jaundice, cyanosis or thyromegaly. No jugular venous distention. No limb edema. VITAL SIGNS: Her heart rate was 94, blood pressure was 91/72, temperature 98.1, respiratory rate was 16, her oxygen saturation was 98%. The rest of clinical examination is stable, has not really changed. Her intake over the last 24 hours was 3400, output was 3160. LABORATORY DATA: Showed a serum sodium 141, potassium 3.7, chloride 107, bicarbonate 26, anion gap of 8, BUN 4, creatinine 0.3. Her white cell count was 7300, hemoglobin 9, hematocrit 27, MCV 69, and platelet count of 455,000. So far, she has grown greater than 100,000 colony forming units per mL of gram-negative rods. The identification and sensitivity is still pending and her blood cultures have grown gram-positive cocci in clusters. The identification and sensitivity is still pending. ASSESSMENT: 1. Severe sepsis due to healthcare-associated pneumonia as well as urinary tract infection. Her blood culture has grown gram-positive cocci. Her urine culture has grown gram-negative rods, identification and sensitivity of both is still pending. 2. Hypotension, which has stabilized. She is off the Levophed. 3. Progressive multiple sclerosis. 4. Acute hypoxic respiratory failure. 5. Chronic sacrococcygeal decubitus ulcer. 6. History of Clostridium difficile colitis. 7. History of methicillin-resistant Staphylococcus aureus infection. 8. Tobacco dependence. 9. Chronic obstructive pulmonary disease. 10. Factor V Leiden. 11. Quadriplegia with neurogenic bladder. PLAN: To continue with IV antibiotic. We did consult the surgeon for Port-A-Cath placement. Apparently decision was made do it closer to the time of discharge. I did consult the urologist for suprapubic catheter. Apparently, she was not seen yet for that. YOLI MEJIA MD DR: JUJU/ronit JOB#: [id number] / [id number]
[2019-06-15] MEDS: ALPRAZolam 0.5 MG TABLET PO SCH (21:28)
[2019-06-16] MEDS: PIPERACILLIN/TAZOBACTAM 3.375 GM in IV NORMAL SALINE 50ML 50 ML IV SCH ×5 (00:01→23:34)
[2019-06-16 03:19] VITALS: BP 139/67
[2019-06-16 07:00] VITALS: BP 114/64
[2019-06-16] MEDS: NYSTATIN 100,000 UNITS/ML 5 ML ORAL.SUSP. SWSW SCH ×4 (09:11→20:32)
[2019-06-16] MEDS: LACTOBACILLUS RHAMNOSUS GG 1 CAPSULE. PO SCH ×2 (09:11→20:31)
[2019-06-16] MEDS: FERROUS SULFATE 325 MG TABLET. PO SCH (09:11)
[2019-06-16] MEDS: DANTROLENE SODIUM 25 MG CAPSULE PO SCH ×4 (09:12→20:31)
[2019-06-16] MEDS: POTASSIUM CHLORIDE 20 MEQ TABLET.ER. PO SCH (09:12)
[2019-06-16] MEDS: DULoxetine HCL 30 MG CAPSULE.DR PO SCH (09:13)
[2019-06-16] MEDS: OXYBUTYNIN CHLORIDE 5 MG TABLET PO SCH ×3 (09:13→20:32)
[2019-06-16] MEDS: APIXABAN 5 MG TABLET. PO SCH ×2 (09:13→20:32)
[2019-06-16] MEDS: MULTIVITAMIN with MINERAL TABLET. PO SCH (09:13)
[2019-06-16] MEDS: CYCLOBENZAPRINE 10 MG TABLET. PO SCH ×3 (09:13→20:32)
[2019-06-16] MEDS: FAMOTIDINE 20 MG TABLET. PO SCH ×2 (09:13→20:31)
--- NOTE | 2019-06-16 09:46 | PDOC ---
SURGICAL PROGRESS NOTE Subjective She resting comfortably no complaints Vital Signs Vital Signs Date Time Temp Pulse Resp B/P (MAP) Pulse Ox O2 Delivery O2 Flow Rate FiO2 06/16/19 07:00 97.6 105 18 114/64 (81) 94 Room Air 97.6 I&O Intake and Output 06/16/19 06:59 Intake Total 2140 ml Output Total 1980 ml Balance 160 ml Intake Oral 790 ml IV Total 1350 ml Output Urine Total 1980 ml # Bowel Movements 1 PATIENT HAS A RAHMAN: Yes General: Alert, Oriented X3, Cooperative, No acute distress Labs Laboratory Tests Test 06/15/19 06:00 06/15/19 10:45 Sodium Level 141 mmol/L (136-145) Potassium Level 3.7 mmol/L (3.5-5.1) Chloride Level 107 mmol/L (98-107) Carbon Dioxide Level 26 mmol/L (21-32) Anion Gap 8 (6-14) Blood Urea Nitrogen 4 mg/dL (7-20) Creatinine 0.3 mg/dL (0.6-1.0) Estimated GFR (Cockcroft-Gault) 240.6 BUN/Creatinine Ratio 13 (6-20) Glucose Level 73 mg/dL (70-99) Calcium Level 8.2 mg/dL (8.5-10.1) Total Bilirubin 0.2 mg/dL (0.2-1.0) Aspartate Amino Transf (AST/SGOT) 7 U/L (15-37) Alanine Aminotransferase (ALT/SGPT) 7 U/L (14-59) Alkaline Phosphatase 43 U/L (46-116) Total Protein 5.8 g/dL (6.4-8.2) Albumin 2.1 g/dL (3.4-5.0) Albumin/Globulin Ratio 0.6 (1.0-1.7) Urine Collection Type Unknown Urine Color Yellow Urine Clarity Clear Urine pH 8.0 Urine Specific Delta 1.010 Urine Protein Negative mg/dL (NEG-TRACE) Urine Glucose (UA) Negative mg/dL (NEG) Urine Ketones (Stick) Negative mg/dL (NEG) Urine Blood Negative (NEG) Urine Nitrite Negative (NEG) Urine Bilirubin Negative (NEG) Urine Urobilinogen Dipstick 0.2 mg/dL (0.2 mg/dL) Urine Leukocyte Esterase Trace (NEG) Urine RBC 0 /HPF (0-2) Urine WBC 1-4 /HPF (0-4) Urine Squamous Epithelial Cells Few /LPF Urine Bacteria Few /HPF (0-FEW) Laboratory Tests Test 06/15/19 10:45 Urine Collection Type Unknown Urine Color Yellow Urine Clarity Clear Urine pH 8.0 Urine Specific Delta 1.010 Urine Protein Negative mg/dL (NEG-TRACE) Urine Glucose (UA) Negative mg/dL (NEG) Urine Ketones (Stick) Negative mg/dL (NEG) Urine Blood Negative (NEG) Urine Nitrite Negative (NEG) Urine Bilirubin Negative (NEG) Urine Urobilinogen Dipstick 0.2 mg/dL (0.2 mg/dL) Urine Leukocyte Esterase Trace (NEG) Urine RBC 0 /HPF (0-2) Urine WBC 1-4 /HPF (0-4) Urine Squamous Epithelial Cells Few /LPF Urine Bacteria Few /HPF (0-FEW) Problem List Problems Medical Problems: (1) Acute respiratory failure Status: Acute (2) HCAP (healthcare-associated pneumonia) Status: Acute (3) Hypokalemia Status: Acute (4) Hypomagnesemia Status: Acute (5) Multiple sclerosis, primary progressive Status: Chronic (6) Pyuria Status: Acute (7) Sepsis Status: Acute (8) Septic shock Status: Acute (9) Severe protein-calorie malnutrition Status: Chronic Assessment/Plan Plan for Port-A-Cath on Wednesday 06/20 if patient can be discharged prior will set up as an outpatient MARCIN QUINN MD Jun 16, 2019 09:46
[2019-06-16 10:52] VITALS: BP 112/64
--- NOTE | 2019-06-16 11:05 | PDOC ---
PULMONARY PROGRESS NOTES Subjective awake, no soa Vitals Vital Signs Date Time Temp Pulse Resp B/P (MAP) Pulse Ox O2 Delivery O2 Flow Rate FiO2 06/16/19 10:52 97.8 99 18 112/64 (80) 94 Room Air 97.8 General: Alert, No acute distress Lungs: Other (decrease bases,) Cardiovascular: S1, S2 Abdomen: Soft, Non-tender Neuro Exam: Alert Extremities: No Edema Skin: Warm, Dry (resp effort imporved somehwat after fluids.) Labs Laboratory Tests Test 06/15/19 06:00 06/15/19 10:45 Sodium Level 141 mmol/L (136-145) Potassium Level 3.7 mmol/L (3.5-5.1) Chloride Level 107 mmol/L (98-107) Carbon Dioxide Level 26 mmol/L (21-32) Anion Gap 8 (6-14) Blood Urea Nitrogen 4 mg/dL (7-20) Creatinine 0.3 mg/dL (0.6-1.0) Estimated GFR (Cockcroft-Gault) 240.6 BUN/Creatinine Ratio 13 (6-20) Glucose Level 73 mg/dL (70-99) Calcium Level 8.2 mg/dL (8.5-10.1) Total Bilirubin 0.2 mg/dL (0.2-1.0) Aspartate Amino Transf (AST/SGOT) 7 U/L (15-37) Alanine Aminotransferase (ALT/SGPT) 7 U/L (14-59) Alkaline Phosphatase 43 U/L (46-116) Total Protein 5.8 g/dL (6.4-8.2) Albumin 2.1 g/dL (3.4-5.0) Albumin/Globulin Ratio 0.6 (1.0-1.7) Urine Collection Type Unknown Urine Color Yellow Urine Clarity Clear Urine pH 8.0 Urine Specific Chappell 1.010 Urine Protein Negative mg/dL (NEG-TRACE) Urine Glucose (UA) Negative mg/dL (NEG) Urine Ketones (Stick) Negative mg/dL (NEG) Urine Blood Negative (NEG) Urine Nitrite Negative (NEG) Urine Bilirubin Negative (NEG) Urine Urobilinogen Dipstick 0.2 mg/dL (0.2 mg/dL) Urine Leukocyte Esterase Trace (NEG) Urine RBC 0 /HPF (0-2) Urine WBC 1-4 /HPF (0-4) Urine Squamous Epithelial Cells Few /LPF Urine Bacteria Few /HPF (0-FEW) Medications Active Scripts Medications Dose Route/Sig Max Daily Dose Days Date Category Augmentin 875-125 Tablet (Amoxicillin/Potassium Clav) 1 Each Tablet 1 Tab PO BID 5 05/29/19 Rx Oxycodone HCl ER (Oxycodone HCl) 10 Mg Tab.er.12h 10 Mg PO BID 05/24/19 Reported Dantrolene Sodium 25 Mg Capsule 75 Mg PO QID 05/24/19 Reported Acidophilus (Lactobacillus Acidophilus) 1 Each Tab.chew 2 Each PO BID 05/24/19 Reported Thera Tablet (Multivitamin with Folic Acid) 400 Mcg Tablet 400 Mcg PO DAILY 05/24/19 Reported Sennosides 8.6 Mg Tablet 8.6 Mg PO DAILY 05/24/19 Reported Percocet 5-325 Mg Tablet (Oxycodone/Acetaminophen) 1 Each Tablet 1 Tab PO PRN Q4HRS PRN 05/24/19 Reported Potassium Chloride 20 Meq Tablet.er 40 Meq PO DAILY 12/30/18 Reported Oxybutynin Chloride 5 Mg Tablet 5 Mg PO TID 12/30/18 Reported Zofran (Ondansetron Hcl) 4 Mg Tablet 1 Tab PO PRN Q4HRS PRN 12/30/18 Reported NICODERM CQ 14mg (Nicotine) 1 Each Patch.td24 1 Patch TP DAILY 12/30/18 Reported Loratadine 10 Mg Tablet 1 Tab PO DAILY 12/30/18 Reported Duoneb 0.5-3(2.5) Mg/3 Ml (Albuterol/Ipratropium) 3 Ml Ampul.neb 3 Ml NEB TID 12/30/18 Reported Mucinex (Guaifenesin) 600 Mg Tablet.er 1 Tab PO BID 12/30/18 Reported Ferrous Sulfate 325 Mg Tablet 325 Mg PO DAILY 12/30/18 Reported Famotidine 20 Mg Tablet 20 Mg PO BID 12/30/18 Reported Cymbalta (Duloxetine Hcl) 30 Mg Capsule.dr 30 Mg PO DAILY 12/30/18 Reported Baclofen 20 Mg Tablet 20 Mg PO QID 12/30/18 Reported Eliquis (Apixaban) 5 Mg Tablet 5 Mg PO BID 12/30/18 Reported Alprazolam 0.5 Mg Tablet 1 Tab PO HS 12/30/18 Reported Tylenol (Acetaminophen) 325 Mg Tablet 650 Mg PO PRN Q4HRS PRN 12/30/18 Reported Impression . 1. Acute respiratory failure due to pneumonia, septic shock 2. Septic shock. resolved 3. Lactic acidosis secondary to sepsis. resolved 4. Pneumonia, gram-positive, gram-negative. 5. Pyuria. 6. Chronic sacrococcygeal pressure wounds, stage 4. 7. Progressive multiple sclerosis. 8. History of Clostridium difficile. 9. History of methicillin-resistant Staphylococcus aureus. 10.Tobacco dependence. 11. Factor V Leiden mutation.no PE/ DVT 12. Severe PCM 13. Low K, Mg, CORRECTED 06/11. BLOOD CULTURE Final GRAM POSITIVE COCCI IN CLUSTERS 2 SETS DRAWN, 1 OF 4 POSITIVE Plan . 1. We will continue current support with oxygen supplementation. 2. Antibiotics per ID 3. repeat cxr today 4. clinically improving 5. Continue home meds. 6. DVT and GI prophylaxis. 7. Clostridium difficile prophylaxis per ID. 8. follow K Mg d/w NARCISA LIN MD Jun 16, 2019 11:05
--- NOTE | 2019-06-16 11:19 | PDOC ---
Infectious Disease Note Subjective Subjective Doing alright this morning, not very hungry, No fevers last 72 hours Denies chills/aches/N/V/D/SOA/dysphagia Vital Sign Vital Signs Vital Signs Date Time Temp Pulse Resp B/P (MAP) Pulse Ox O2 Delivery O2 Flow Rate FiO2 06/16/19 10:52 97.8 99 18 112/64 (80) 94 Room Air 97.8 Physical Exam PHYSICAL EXAM GENERAL: Alert, watching TV HEENT: KIMBERLY, Oropharynx dry. NECK: Supple. LUNGS: Clear to auscultation. HEART: S1 and S2. ABDOMEN: Soft and nontender with bowel sounds present. GENITOURINARY: Indwelling Shafer in place (06-12). EXTREMITIES: No gross edema or cyanosis. Contractures and muscle atrophy. SKIN: Warm to touch. No signs of rash. Sacrococcygeal wound- clean (pic reviewed) NEUROLOGIC: Alert, answering questions appropriately. RIJ (06/13) without signs of complications Labs Micro 06/11. BLD CULT RESULT 1 Preliminary Comment Coagulase negative Staphylococcus species. 06/12. URINE CULTURE RES 1 Preliminary Gram negative rods Greater than 100,000 colony forming units per mL Klebsiella pneumoniae Greater than 100,000 colony forming units per mL Performed at: - [facility] [address], [place], [place] [id number] Aircraft Armorer: ROCK Link MD, Phone: [phone] URINE CULTURE RES 2 Preliminary Objective Assessment BC + GPC (1 of 4 bottles), 06/11. CoNS likely contaminate Sepsis with lactic acidosis and hypotension, off vasopressor support - clinically improving HCAP Pyuria. Shafer chg 06/12. GNR Leukocytosis - improved Chronic sacrococcygeal pressure wound MS h/x C. diff colitis 12/2018 h/o MRSA, VRE and MDR infections h/o E. coli in urine Plan Plan of Care D/c ont Zyvox with h/o VRE Cint Zosyn with GNRs ID in urine Maintain aspiration precautions Wound team following Offloading Await placement of Suprapubic Port-A-Cath on Wednesday 06/20 Attending Co-Sign Attending Co-Sign The patient was seen and interviewed as well as examined at the bedside. The chart was reviewed. The case was discussed. Agree with the plan of care. AMY REESE ARTILLERY MAINTENANCE SUPERVISOR Jun 16, 2019 11:19 GARRY HUNTER MD Jun 16, 2019 16:01
--- NOTE | 2019-06-16 11:37 | PDOC ---
ZEYNEP AJ MOTOR OPERATOR 06/16/19 1137: SUBJECTIVE Subjective Pt sleeping, appears comfortable. OBJECTIVE Objective Physical Exam: General appearance: sleeping, appears comfortable Head: Normocephalic, without obvious abnormality Eyes: closed Lungs: Regular respirations, non labored breathing Abdomen: soft, non-tender. No masses, no organomegaly Pelvic: + Shafer in place draining clear yellow urine. Vital Signs Vital Signs Date Time Temp Pulse Resp B/P (MAP) Pulse Ox O2 Delivery O2 Flow Rate FiO2 06/16/19 10:52 97.8 99 18 112/64 (80) 94 Room Air 97.8 06/16/19 08:00 Room Air 06/16/19 07:00 97.6 105 18 114/64 (81) 94 Room Air 97.6 06/16/19 03:19 98.2 84 20 139/67 (91) 95 Room Air 98.2 06/15/19 22:38 98.3 109 18 117/84 (95) 94 Room Air 98.3 06/15/19 21:00 Room Air 06/15/19 19:00 97.8 124 17 117/85 (96) 92 Room Air 97.8 06/15/19 15:04 97.7 112 18 98/78 (85) 94 Room Air 97.7 06/15/19 14:59 97.7 112 18 98/78 (85) 94 Room Air 97.7 06/15/19 12:00 97.6 111 18 94/66 (75) 92 Room Air 97.6 06/15/19 11:45 89 18 97/72 (80) 99 Room Air I & O Intake and Output 06/16/19 06:59 Intake Total 2140 ml Output Total 1980 ml Balance 160 ml Intake Oral 790 ml IV Total 1350 ml Output Urine Total 1980 ml # Bowel Movements 1 PHYSICAL EXAM Physical Exam Physical Exam: General appearance: sleeping, appears comfortable Head: Normocephalic, without obvious abnormality Eyes: closed Lungs: Regular respirations, non labored breathing Abdomen: soft, non-tender. No masses, no organomegaly Pelvic: + Shafer in place draining clear yellow urine. ASSESSMENT/PLAN Assessment/Plan Patient sleeping comfortably. They are stopping her Eliquis after tomorrow morning's dose. Discussed case with Dr. Tayolr of IR who will perform the procedure on Wednesday to allow for time off Eliquis. Consent for IR was placed yesterday. Will follow peripherally over the weekend but please call with questions or changes in patient condition. . MARC GILLIAM MD 06/18/19 1222: ASSESSMENT/PLAN Assessment/Plan Agree with assessment and plan. ZEYNEP AJ APRN Jun 16, 2019 11:37 MARC GILLIAM MD Jun 18, 2019 12:22
[2019-06-16] MEDS: IV NORMAL SALINE 1000ML BAG 1,000 ML IV SCH ×3 (12:11→20:29)
[2019-06-16 14:56] VITALS: BP 108/60
[2019-06-16 19:00] VITALS: BP 105/79
[2019-06-16] MEDS: ALPRAZolam 0.5 MG TABLET PO SCH (20:32)
--- NOTE | 2019-06-16 22:35 | PN ---
DATE: 06/16/2019 SUBJECTIVE: The patient is resting, slightly propped up in bed, no apparent distress, awake, alert. On questioning her, denied any complaint. The nursing staff did not voice any concerns that she had an uneventful night. OBJECTIVE: GENERAL: When I examined her, she looked pale, but no jaundice, cyanosis or thyromegaly. No jugular venous distention. No limb edema. VITAL SIGNS: Her heart rate was 99, blood pressure 112/64, temperature was 97.8, respiratory rate was 18 and oxygen saturation was 94%. The rest of clinical exam stable. LABORATORY DATA: Her intake over the last 24 hours was 3500, output was 4770. As of yesterday, her BUN is 4, creatinine 0.3. Her hemoglobin 9, hematocrit 27 with normal white cell count and platelets. ASSESSMENT: 1. Severe sepsis with lactic acidosis and hypotension, off Levophed. 2. Healthcare-associated pneumonia. 3. Urinary tract infection with growth of more than 100,000 colony forming units of gram-negative rods. 4. Chronic sacrococcygeal decubitus ulcer. 5. Multiple sclerosis. 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 PLAN: To continue with Zyvox and Zosyn as per Infectious Disease recommendation. Continue offloading her wounds. She is scheduled to have her suprapubic catheter placed on Wednesday, 06/19/ and Port-A-Cath on Wednesday, 06/20. YOLI MEJIA MD DR: JUJU/ronit JOB#: [id number] / [id number]
[2019-06-16 23:00] VITALS: BP 135/77
[2019-06-17 03:00] VITALS: BP 125/72
[2019-06-17] MEDS: IV NORMAL SALINE 1000ML BAG 1,000 ML IV SCH ×3 (04:00→21:46)
[2019-06-17] MEDS: PIPERACILLIN/TAZOBACTAM 3.375 GM in IV NORMAL SALINE 50ML 50 ML IV SCH ×4 (06:15→23:16)
[2019-06-17 07:00] VITALS: BP 118/73
--- NOTE | 2019-06-17 08:07 | PDOC ---
PULMONARY PROGRESS NOTES Subjective awake, no soa, no cough, no pain Vitals Vital Signs Date Time Temp Pulse Resp B/P (MAP) Pulse Ox O2 Delivery O2 Flow Rate FiO2 06/17/19 03:00 98.0 91 16 125/72 (89) 96 Room Air 98.0 General: Alert, No acute distress Lungs: Other (decrease bases,) Cardiovascular: S1, S2 Abdomen: Soft, Non-tender Neuro Exam: Alert Extremities: No Edema Skin: Warm, Dry (resp effort imporved somehwat after fluids.) Labs Laboratory Tests Test 06/15/19 10:45 Urine Collection Type Unknown Urine Color Yellow Urine Clarity Clear Urine pH 8.0 Urine Specific [place] 1.010 Urine Protein Negative mg/dL (NEG-TRACE) Urine Glucose (UA) Negative mg/dL (NEG) Urine Ketones (Stick) Negative mg/dL (NEG) Urine Blood Negative (NEG) Urine Nitrite Negative (NEG) Urine Bilirubin Negative (NEG) Urine Urobilinogen Dipstick 0.2 mg/dL (0.2 mg/dL) Urine Leukocyte Esterase Trace (NEG) Urine RBC 0 /HPF (0-2) Urine WBC 1-4 /HPF (0-4) Urine Squamous Epithelial Cells Few /LPF Urine Bacteria Few /HPF (0-FEW) Medications Active Scripts Medications Dose Route/Sig Max Daily Dose Days Date Category Augmentin 875-125 Tablet (Amoxicillin/Potassium Clav) 1 Each Tablet 1 Tab PO BID 5 05/29/19 Rx Oxycodone HCl ER (Oxycodone HCl) 10 Mg Tab.er.12h 10 Mg PO BID 05/24/19 Reported Dantrolene Sodium 25 Mg Capsule 75 Mg PO QID 05/24/19 Reported Acidophilus (Lactobacillus Acidophilus) 1 Each Tab.chew 2 Each PO BID 05/24/19 Reported Thera Tablet (Multivitamin with Folic Acid) 400 Mcg Tablet 400 Mcg PO DAILY 05/24/19 Reported Sennosides 8.6 Mg Tablet 8.6 Mg PO DAILY 05/24/19 Reported Percocet 5-325 Mg Tablet (Oxycodone/Acetaminophen) 1 Each Tablet 1 Tab PO PRN Q4HRS PRN 05/24/19 Reported Potassium Chloride 20 Meq Tablet.er 40 Meq PO DAILY 12/30/18 Reported Oxybutynin Chloride 5 Mg Tablet 5 Mg PO TID 12/30/18 Reported Zofran (Ondansetron Hcl) 4 Mg Tablet 1 Tab PO PRN Q4HRS PRN 12/30/18 Reported NICODERM CQ 14mg (Nicotine) 1 Each Patch.td24 1 Patch TP DAILY 12/30/18 Reported Loratadine 10 Mg Tablet 1 Tab PO DAILY 12/30/18 Reported Duoneb 0.5-3(2.5) Mg/3 Ml (Albuterol/Ipratropium) 3 Ml Ampul.neb 3 Ml NEB TID 12/30/18 Reported Mucinex (Guaifenesin) 600 Mg Tablet.er 1 Tab PO BID 12/30/18 Reported Ferrous Sulfate 325 Mg Tablet 325 Mg PO DAILY 12/30/18 Reported Famotidine 20 Mg Tablet 20 Mg PO BID 12/30/18 Reported Cymbalta (Duloxetine Hcl) 30 Mg Capsule.dr 30 Mg PO DAILY 12/30/18 Reported Baclofen 20 Mg Tablet 20 Mg PO QID 12/30/18 Reported Eliquis (Apixaban) 5 Mg Tablet 5 Mg PO BID 12/30/18 Reported Alprazolam 0.5 Mg Tablet 1 Tab PO HS 12/30/18 Reported Tylenol (Acetaminophen) 325 Mg Tablet 650 Mg PO PRN Q4HRS PRN 12/30/18 Reported Impression . 1. Acute respiratory failure due to pneumonia, septic shock 2. Septic shock. resolved 3. Lactic acidosis secondary to sepsis. resolved 4. Pneumonia, gram-positive, gram-negative. 5. Pyuria. 6. Chronic sacrococcygeal pressure wounds, stage 4. 7. Progressive multiple sclerosis. 8. History of Clostridium difficile. 9. History of methicillin-resistant Staphylococcus aureus. 10.Tobacco dependence. 11. Factor V Leiden mutation.no PE/ DVT 12. Severe PCM 13. Low K, Mg, CORRECTED 06/11. BLOOD CULTURE Final GRAM POSITIVE COCCI IN CLUSTERS 2 SETS DRAWN, 1 OF 4 POSITIVE Plan . 1. 02 titration to keep sat 92% 2. Antibiotics per ID 3. repeat cxr, reviewed, Right basilar airspace disease is improved 4. clinically improving 5. Continue home meds. 6. DVT and GI prophylaxis. 7. Clostridium difficile prophylaxis per ID. 8. follow K, Mg d/w RN, pt SAYRA MARQUEZ MD Jun 17, 2019 08:07
[2019-06-17] MEDS: MULTIVITAMIN with MINERAL TABLET. PO SCH (08:21)
[2019-06-17] MEDS: DULoxetine HCL 30 MG CAPSULE.DR PO SCH (08:21)
[2019-06-17] MEDS: NYSTATIN 100,000 UNITS/ML 5 ML ORAL.SUSP. SWSW SCH ×5 (08:21→20:31)
[2019-06-17] MEDS: APIXABAN 5 MG TABLET. PO SCH (08:22)
[2019-06-17] MEDS: FAMOTIDINE 20 MG TABLET. PO SCH ×2 (08:23→20:31)
[2019-06-17] MEDS: POTASSIUM CHLORIDE 20 MEQ TABLET.ER. PO SCH (08:23)
[2019-06-17] MEDS: CYCLOBENZAPRINE 10 MG TABLET. PO SCH ×3 (08:24→20:31)
[2019-06-17] MEDS: FERROUS SULFATE 325 MG TABLET. PO SCH (08:24)
[2019-06-17] MEDS: OXYBUTYNIN CHLORIDE 5 MG TABLET PO SCH ×3 (08:24→20:31)
[2019-06-17] MEDS: LACTOBACILLUS RHAMNOSUS GG 1 CAPSULE. PO SCH ×2 (08:24→20:31)
[2019-06-17] MEDS: DANTROLENE SODIUM 25 MG CAPSULE PO SCH ×4 (09:00→20:31)
--- NOTE | 2019-06-17 10:09 | PN ---
DATE: 06/17/2019 SUBJECTIVE: The patient is resting, slightly propped up in bed, having her breakfast. On questioning her, she denied any complaints and the nursing staff did not voice any concerns that she has an uneventful night. PHYSICAL EXAMINATION: GENERAL: When I examined her, she was pale, cachectic, but no jaundice, cyanosis or thyromegaly. No jugular venous distension. No limb edema. VITAL SIGNS: Her heart rate was 91, blood pressure was 125/72, temperature was 98, respiratory rate was 16, and her oxygen saturation was 96% on room air. HEAD, EYES, EARS, NOSE AND THROAT: Showed normocephalic and atraumatic. NECK: Supple. CARDIAC: Normal first and second heart sounds. No gallop or murmur. CHEST: Clear to auscultation. No crepitation or rhonchi. ABDOMEN: Scaphoid, soft and nontender. NEUROLOGIC: She is awake, alert, responding appropriately. All her cranial nerves intact. She has functional quadriplegia. Neurogenic bladder requiring indwelling Shafer catheter and has large sacrococcygeal decubitus ulcer. Her intake over the last 24 hours was 2100 and output was 1980. LABORATORY DATA: Her lab work as of yesterday showed a serum sodium 141, potassium 3.7, chloride 107, bicarbonate 26, anion gap of 8, BUN 4, and creatinine 0.3. Her hemoglobin 9, hematocrit 27 with normal white cell count and platelets. Her urine culture has grown gram-negative rods greater than 100,000 colony forming units per mL identified as Klebsiella pneumoniae, sensitivity is still pending. Her blood culture has grown Staphylococcus epidermidis, sensitive to vancomycin, Zyvox, and nitrofurantoin. ASSESSMENT: 1. Severe sepsis with lactic acidosis and hypotension, resolved. She is off Levophed. 2. Healthcare-associated pneumonia. 3. Urinary tract infection with growth of more than 100,000 colony forming units of gram-negative rods. 4. Chronic sacrococcygeal decubitus ulcer. 5. Advanced progressive multiple sclerosis and functional quadriplegia with neurogenic bladder requiring indwelling Shafer catheter. 6. History of Clostridium difficile colitis. 7. History of methicillin-resistant Staphylococcus aureus and vancomycin-resistant Enterococcus as well as multidrug resistant infection. 8. Chronic obstructive pulmonary disease. 9. Factor V Leiden. PLAN: Continue with IV antibiotic. Continue with wound care. Continue with nutritional support and pain management. The patient is scheduled for suprapubic catheter placement on Wednesday and Port-A-Cath placement on Wednesday. YOLI MEJIA MD DR: JUJU/ronit JOB#: [id number] / [id number]
--- NOTE | 2019-06-17 10:11 | PDOC ---
Infectious Disease Note Subjective Subjective Comfortable Usually doesn't eat breakfast Denies pain/N/V/D No fevers ROS ROS per HPI Vital Sign Vital Signs Vital Signs Date Time Temp Pulse Resp B/P (MAP) Pulse Ox O2 Delivery O2 Flow Rate FiO2 06/17/19 08:00 Room Air 06/17/19 07:00 97.5 86 18 118/73 (88) 94 97.5 Physical Exam PHYSICAL EXAM GENERAL: Resting quietly HEENT: Oropharynx dry, clear LUNGS: Clear to auscultation. HEART: S1 and S2. ABDOMEN: Soft and nontender with bowel sounds present. GENITOURINARY: Indwelling Shafer in place (8-). EXTREMITIES: No gross edema or cyanosis. Contractures and muscle atrophy. + heel protectors SKIN: Warm to touch. No signs of rash. Sacrococcygeal wound- clean (pic reviewed) NEUROLOGIC: Arouses to name, answering questions appropriately. RIJ (06/13) without signs of complications Labs Micro 06/11. BLD CULT RESULT 1 Preliminary Coagulase negative Staphylococcus species. Antibiotic RSLT#1 Ciprofloxacin R>=8 Clindamycin R>=8 Erythromycin R>=8 Gentamicin R>=16 Levofloxacin R>=8 Linezolid S =2 Nitrofurantoin S<=16 Oxacillin R>=4 Penicillin R>=0.5 Quinupristin/Dalfopristin S<=0.25 Rifampin S<=0.5 Tetracycline S =4 Trimethoprim/Sulfa R =160 Vancomycin S =4 06/12. URINE CULTURE RES 1 Preliminary Klebsiella pneumoniae URINE CULTURE RES 2 Preliminary Escherichia coli Klebsiella pneumoniae Greater than 100,000 colony forming units per mL Performed at: [address] [id number] [place] Hand: ROCK Link MD, Phone: [phone] Greater than 100,000 colony forming units per mL Multi-Drug Resistant Organism Susceptibility profile is consistent with a probable ESBL. URINE CULTURE RES 2 Final Escherichia coli Greater than 100,000 colony forming units per mL Performed at: [address] [id number] [place] Hand: ROCK Link MD, Phone: [phone] Greater than 100,000 colony forming units per mL Cefazolin <=4 ug/mL CONTINUED ON NEXT PAGE RUN DATE: 06/17/19 PAGE 2 RUN TIME: [address] [facility] [address] [place] [address] Manny Coleman M.D., Service Coordinator SPEC: [id number] PATIENT: LENNY EVERETT [id number] (Continued) Procedure Result URINE CULTURE RES 2 Final (continued) Cefazolin with an SULTANA <=16 predicts susceptibility to the oral agents cefaclor, cefdinir, cefpodoxime, cefprozil, cefuroxime, cephalexin, and loracarbef when used for therapy of uncomplicated urinary tract infections due to E. coli, Klebsiella pneumoniae, and Proteus mirabilis. ANTIMICROBIAL SUSCEPTIBILITY Final Comment S = Susceptible; I = Intermediate; R = Resistant P = Positive; N = Negative MICS are expressed in micrograms per mL Antibiotic RSLT#1 RSLT#2 RSLT#3 RSLT#4 Amikacin S<=2 Amoxicillin/Clavulanic Acid I =16 I =16 Ampicillin R>=32 R>=32 Ampicillin/Sulbactam R>=32 Cefazolin R>=64 Cefepime S =8 S<=0.12 Cefotaxime R>=64 Ceftazidime R>=64 Ceftriaxone R>=64 S<=0.25 Cefuroxime R>=64 I =16 Ciprofloxacin R>=4 R>=4 Ertapenem S<=0.12 S<=0.12 Gentamicin S<=1 S<=1 Imipenem S<=1 S<=0.25 Levofloxacin R>=8 R>=8 Meropenem S<=0.25 S<=0.25 Nitrofurantoin I =64 S =32 Piperacillin/Tazobactam S =8 S =8 Tetracycline R>=16 S<=1 Tigecycline S<=0.5 Tobramycin S<=1 S<=1 Trimethoprim/Sulfa R>=320 S<=20 Objective Assessment BC + GPC (1 of 4 bottles), 06/11. CoNS likely contaminate Sepsis with lactic acidosis and hypotension, off vasopressor support - clinically improving HCAP Pyuria. Shafer chg 06/12. E. coli and Klebsiella Leukocytosis - improved Chronic sacrococcygeal pressure wound MS h/x C. diff colitis 12/2018 h/o MRSA, VRE and MDR infections h/o E. coli in urine Plan Plan of Care Continue Zosyn Maintain aspiration precautions Wound team following Offloading Await placement of Suprapubic - Wednesday Port-A-Cath on Wednesday 06/20 D/w nursing re call button issues Attending Co-Sign Attending Co-Sign The patient was seen and interviewed as well as examined at the bedside. The chart was reviewed. The case was discussed. Agree with the plan of care. AMY REESE APRN Jun 17, 2019 10:11 GARRY HUNTER MD Jun 17, 2019 14:58
[2019-06-17 11:00] VITALS: BP 100/66
--- NOTE | 2019-06-17 11:09 | RAD ---
PORTABLE CHEST 1V Clinical Indication: Pneumonia Comparison: AP chest, 3 days ago. Findings: Patient is rotated. Right IJ central line tip is in the right atrium. The cardiomediastinal silhouette is normal. Right basilar airspace disease is improved. The left lung is clear. There is no pneumothorax. No pleural effusion is appreciated. No acute bone abnormality. IMPRESSION: Right basilar airspace disease is improved. Electronically signed by: Robert Luevano MD (06/17/2019 11:06 AM) [facility]
[2019-06-17] MEDS: ACETAMINOPHEN 325 MG TABLET. PO PRN (13:08)
[2019-06-17 14:59] VITALS: BP 106/75
[2019-06-17 19:00] VITALS: BP 107/75
[2019-06-17] MEDS: ALPRAZolam 0.5 MG TABLET PO SCH (20:31)
[2019-06-17 22:31] VITALS: BP 130/88
[2019-06-18 03:00] VITALS: BP 132/79
[2019-06-18] MEDS: PIPERACILLIN/TAZOBACTAM 3.375 GM in IV NORMAL SALINE 50ML 50 ML IV SCH ×4 (05:49→23:19)
[2019-06-18 06:19] LABS: CALCIUM 8.7 mg/dL (8.5-10.1); CREATININE 0.4 mg/dL (0.6-1.0); GFR 172.6; POTASSIUM 3.7 mmol/L (3.5-5.1)
[2019-06-18 06:50] LABS: HEMATOCRIT 30.5 % (36.0-47.0); HEMOGLOBIN 9.7 g/dL (12.0-15.5); RED BLOOD COUNT 4.4 x10^6/uL (3.50-5.40); RED CELL DISTRIBUTION WIDTH 18.9 % (11.5-14.5)
[2019-06-18 07:00] VITALS: BP 113/73
[2019-06-18] MEDS: CYCLOBENZAPRINE 10 MG TABLET. PO SCH ×3 (08:02→20:54)
[2019-06-18] MEDS: MULTIVITAMIN with MINERAL TABLET. PO SCH (08:02)
[2019-06-18] MEDS: LACTOBACILLUS RHAMNOSUS GG 1 CAPSULE. PO SCH ×2 (08:02→20:54)
[2019-06-18] MEDS: FERROUS SULFATE 325 MG TABLET. PO SCH (08:02)
[2019-06-18] MEDS: DULoxetine HCL 30 MG CAPSULE.DR PO SCH (08:02)
[2019-06-18] MEDS: POTASSIUM CHLORIDE 20 MEQ TABLET.ER. PO SCH (08:02)
[2019-06-18] MEDS: NYSTATIN 100,000 UNITS/ML 5 ML ORAL.SUSP. SWSW SCH ×5 (08:03→20:53)
[2019-06-18] MEDS: DANTROLENE SODIUM 25 MG CAPSULE PO SCH ×4 (08:03→20:54)
[2019-06-18] MEDS: OXYBUTYNIN CHLORIDE 5 MG TABLET PO SCH ×3 (08:03→20:54)
[2019-06-18] MEDS: FAMOTIDINE 20 MG TABLET. PO SCH ×2 (08:03→20:54)
--- NOTE | 2019-06-18 08:31 | PDOC ---
PULMONARY PROGRESS NOTES Subjective awake, denies soa, cough, pain Vitals Vital Signs Date Time Temp Pulse Resp B/P (MAP) Pulse Ox O2 Delivery O2 Flow Rate FiO2 06/18/19 07:00 97.7 107 18 113/73 (86) 94 Room Air 97.7 ROS: No Nausea General: Alert, No acute distress Lungs: Other (decrease bases,) Cardiovascular: S1, S2 Abdomen: Soft, Non-tender Neuro Exam: Alert Extremities: No Edema Skin: Warm, Dry (resp effort imporved somehwat after fluids.) Labs Laboratory Tests Test 06/18/19 05:50 White Blood Count 7.0 x10^3/uL (4.0-11.0) Red Blood Count 4.40 x10^6/uL (3.50-5.40) Hemoglobin 9.7 g/dL (12.0-15.5) Hematocrit 30.5 % (36.0-47.0) Mean Corpuscular Volume 69 fL (79-100) Mean Corpuscular Hemoglobin 22 pg (25-35) Mean Corpuscular Hemoglobin Concent 32 g/dL (31-37) Red Cell Distribution Width 18.9 % (11.5-14.5) Platelet Count 481 x10^3/uL (140-400) Sodium Level 142 mmol/L (136-145) Potassium Level 3.7 mmol/L (3.5-5.1) Chloride Level 107 mmol/L (98-107) Carbon Dioxide Level 27 mmol/L (21-32) Anion Gap 8 (6-14) Blood Urea Nitrogen 5 mg/dL (7-20) Creatinine 0.4 mg/dL (0.6-1.0) Estimated GFR (Cockcroft-Gault) 172.6 Glucose Level 68 mg/dL (70-99) Calcium Level 8.7 mg/dL (8.5-10.1) Laboratory Tests Test 06/18/19 05:50 White Blood Count 7.0 x10^3/uL (4.0-11.0) Red Blood Count 4.40 x10^6/uL (3.50-5.40) Hemoglobin 9.7 g/dL (12.0-15.5) Hematocrit 30.5 % (36.0-47.0) Mean Corpuscular Volume 69 fL (79-100) Mean Corpuscular Hemoglobin 22 pg (25-35) Mean Corpuscular Hemoglobin Concent 32 g/dL (31-37) Red Cell Distribution Width 18.9 % (11.5-14.5) Platelet Count 481 x10^3/uL (140-400) Sodium Level 142 mmol/L (136-145) Potassium Level 3.7 mmol/L (3.5-5.1) Chloride Level 107 mmol/L (98-107) Carbon Dioxide Level 27 mmol/L (21-32) Anion Gap 8 (6-14) Blood Urea Nitrogen 5 mg/dL (7-20) Creatinine 0.4 mg/dL (0.6-1.0) Estimated GFR (Cockcroft-Gault) 172.6 Glucose Level 68 mg/dL (70-99) Calcium Level 8.7 mg/dL (8.5-10.1) Medications Active Scripts Medications Dose Route/Sig Max Daily Dose Days Date Category Augmentin 875-125 Tablet (Amoxicillin/Potassium Clav) 1 Each Tablet 1 Tab PO BID 5 05/29/19 Rx Oxycodone HCl ER (Oxycodone HCl) 10 Mg Tab.er.12h 10 Mg PO BID 05/24/19 Reported Dantrolene Sodium 25 Mg Capsule 75 Mg PO QID 05/24/19 Reported Acidophilus (Lactobacillus Acidophilus) 1 Each Tab.chew 2 Each PO BID 05/24/19 Reported Thera Tablet (Multivitamin with Folic Acid) 400 Mcg Tablet 400 Mcg PO DAILY 05/24/19 Reported Sennosides 8.6 Mg Tablet 8.6 Mg PO DAILY 05/24/19 Reported Percocet 5-325 Mg Tablet (Oxycodone/Acetaminophen) 1 Each Tablet 1 Tab PO PRN Q4HRS PRN 05/24/19 Reported Potassium Chloride 20 Meq Tablet.er 40 Meq PO DAILY 12/30/18 Reported Oxybutynin Chloride 5 Mg Tablet 5 Mg PO TID 12/30/18 Reported Zofran (Ondansetron Hcl) 4 Mg Tablet 1 Tab PO PRN Q4HRS PRN 12/30/18 Reported NICODERM CQ 14mg (Nicotine) 1 Each Patch.td24 1 Patch TP DAILY 12/30/18 Reported Loratadine 10 Mg Tablet 1 Tab PO DAILY 12/30/18 Reported Duoneb 0.5-3(2.5) Mg/3 Ml (Albuterol/Ipratropium) 3 Ml Ampul.neb 3 Ml NEB TID 12/30/18 Reported Mucinex (Guaifenesin) 600 Mg Tablet.er 1 Tab PO BID 12/30/18 Reported Ferrous Sulfate 325 Mg Tablet 325 Mg PO DAILY 12/30/18 Reported Famotidine 20 Mg Tablet 20 Mg PO BID 12/30/18 Reported Cymbalta (Duloxetine Hcl) 30 Mg Capsule.dr 30 Mg PO DAILY 12/30/18 Reported Baclofen 20 Mg Tablet 20 Mg PO QID 12/30/18 Reported Eliquis (Apixaban) 5 Mg Tablet 5 Mg PO BID 12/30/18 Reported Alprazolam 0.5 Mg Tablet 1 Tab PO HS 12/30/18 Reported Tylenol (Acetaminophen) 325 Mg Tablet 650 Mg PO PRN Q4HRS PRN 12/30/18 Reported Impression . 1. Acute respiratory failure due to pneumonia, septic shock 2. Septic shock. resolved 3. Lactic acidosis secondary to sepsis. resolved 4. Pneumonia, gram-positive, gram-negative. 5. Pyuria. 6. Chronic sacrococcygeal pressure wounds, stage 4. 7. Progressive multiple sclerosis. 8. History of Clostridium difficile. 9. History of methicillin-resistant Staphylococcus aureus. 10.Tobacco dependence. 11. Factor V Leiden mutation.no PE/ DVT 12. Severe PCM 13. Low K, Mg, CORRECTED 14. MS 8/4. BLOOD CULTURE Final GRAM POSITIVE COCCI IN CLUSTERS 2 SETS DRAWN, 1 OF 4 POSITIVE Plan . 1. 02 titration to keep sat 92% 2. Antibiotics per ID 3. repeat cxr, reviewed, Right basilar airspace disease is improved 4. clinically improving 5. Continue home meds. 6. DVT and GI prophylaxis. 7. Clostridium difficile prophylaxis per ID. 8. follow K, Mg d/w RN, pt SAYRA MARQUEZ MD Jun 18, 2019 08:31
[2019-06-18] MEDS: IV NORMAL SALINE 1000ML BAG 1,000 ML IV SCH ×2 (09:21→20:52)
[2019-06-18 10:54] VITALS: BP 114/73
--- NOTE | 2019-06-18 11:34 | PDOC ---
Infectious Disease Note Subjective Subjective Little cold, otherwise says doing alright No fevers/chills/N/V/D/SOA ROS ROS per HPI Vital Sign Vital Signs Vital Signs Date Time Temp Pulse Resp B/P (MAP) Pulse Ox O2 Delivery O2 Flow Rate FiO2 06/18/19 10:54 99.0 92 18 114/73 (87) 95 Room Air 99.0 Physical Exam PHYSICAL EXAM GENERAL: Resting quietly, arouses to name HEENT: Oropharynx dry, clear LUNGS: Clear to auscultation. HEART: S1 and S2. ABDOMEN: Soft and nontender with bowel sounds present. GENITOURINARY: Indwelling Shafer in place (8-5). EXTREMITIES: No gross edema or cyanosis. Contractures and muscle atrophy. + heel protectors SKIN: Warm to touch. No signs of rash. Sacrococcygeal wound- clean (pic reviewed) NEUROLOGIC: Arouses to name, answering questions appropriately. RIJ (06/13) without signs of complications Labs Lab Laboratory Tests Test 06/18/19 05:50 White Blood Count 7.0 x10^3/uL (4.0-11.0) Red Blood Count 4.40 x10^6/uL (3.50-5.40) Hemoglobin 9.7 g/dL (12.0-15.5) Hematocrit 30.5 % (36.0-47.0) Mean Corpuscular Volume 69 fL (79-100) Mean Corpuscular Hemoglobin 22 pg (25-35) Mean Corpuscular Hemoglobin Concent 32 g/dL (31-37) Red Cell Distribution Width 18.9 % (11.5-14.5) Platelet Count 481 x10^3/uL (140-400) Sodium Level 142 mmol/L (136-145) Potassium Level 3.7 mmol/L (3.5-5.1) Chloride Level 107 mmol/L (98-107) Carbon Dioxide Level 27 mmol/L (21-32) Anion Gap 8 (6-14) Blood Urea Nitrogen 5 mg/dL (7-20) Creatinine 0.4 mg/dL (0.6-1.0) Estimated GFR (Cockcroft-Gault) 172.6 Glucose Level 68 mg/dL (70-99) Calcium Level 8.7 mg/dL (8.5-10.1) Micro 8/4. BLD CULT RESULT 1 Preliminary Coagulase negative Staphylococcus species. Antibiotic RSLT#1 Ciprofloxacin R>=8 Clindamycin R>=8 Erythromycin R>=8 Gentamicin R>=16 Levofloxacin R>=8 Linezolid S =2 Nitrofurantoin S<=16 Oxacillin R>=4 Penicillin R>=0.5 Quinupristin/Dalfopristin S<=0.25 Rifampin S<=0.5 Tetracycline S =4 Trimethoprim/Sulfa R =160 Vancomycin S =4 06/12. URINE CULTURE RES 1 Preliminary Klebsiella pneumoniae URINE CULTURE RES 2 Preliminary Escherichia coli Objective Assessment BC + GPC (1 of 4 bottles), 06/11. CoNS likely contaminate Sepsis with lactic acidosis and hypotension, off vasopressor support - clinically improving HCAP Pyuria. Shafer chg 06/12. E. coli and Klebsiella Leukocytosis - improved Chronic sacrococcygeal pressure wound MS h/x C. diff colitis 12/2018 h/o MRSA, VRE and MDR infections h/o E. coli in urine Plan Plan of Care Extra blanket provided, more comfortable Continue Zosyn doing better today Maintain aspiration precautions Wound team following Offloading Await placement of Suprapubic - Wednesday Port-A-Cath on Wednesday 06/20 D/w nurse Attending Co-Sign Attending Co-Sign The patient was seen and interviewed as well as examined at the bedside. The chart was reviewed. The case was discussed. Agree with the plan of care. AMY REESE APRN Jun 18, 2019 11:34 GARRY HUNTER MD Jun 18, 2019 13:22
--- NOTE | 2019-06-18 11:51 | PN ---
DATE: 06/18/2019 SUBJECTIVE: The patient is resting, slightly propped up in bed, and in no apparent distress. Nursing staff did not voice any concerns, said she had an uneventful night. She has eaten more than half of her breakfast this morning. OBJECTIVE: GENERAL: On examining her, she was pale, cachectic, but no jaundice, cyanosis or thyromegaly. No jugular venous distention. No limb edema. VITAL SIGNS: Her heart rate was 77, blood pressure was 132/79, temperature was 97.5, respiratory rate was 17 and oxygen saturation was 96% on room air. HEAD, EYES, EARS, NOSE AND THROAT: Showed normocephalic, atraumatic. NECK: Supple. CARDIAC: Normal first and second heart sounds. No gallop or murmur. CHEST: Clear to auscultation. No crepitation or rhonchi. ABDOMEN: Distended, soft, nontender. NEUROLOGIC: She is awake, alert, responding appropriately. She has functional quadriplegia with neurogenic bladder requiring indwelling Shafer catheter. She has sacrococcygeal decubitus ulcer. Her intake over the last 24 hours was 600, output was 5800. LABORATORY DATA: Her lab work this morning was 142, potassium 3.7, chloride 107, bicarbonate 27, anion gap of 8, BUN 5, creatinine was 0.4, estimated GFR was 172 mL per minute. Her glucose was 68, calcium was 8.7. Her white cell count was 7000, hemoglobin 10, hematocrit 30, MCV 69, and platelet count 481,000. Her BUN is 18.9, INR of 1.6. ASSESSMENT: 1. Severe sepsis with lactic acidosis and hypotension resolved. She is off Levophed. 2. Healthcare-associated pneumonia. 3. Urinary tract infection with growth of more than 100,000 colony forming units per mL of gram-negative rods. 4. Chronic sacrococcygeal decubitus ulcer. 5. Advanced progressive multiple sclerosis, functional quadriplegia and neurogenic bladder requiring indwelling Shafer catheter. 6. History of Clostridium difficile colitis. 7. History of methicillin-resistant Staphylococcus aureus and vancomycin resistant Enterococcus as well as multidrug resistant infection. 8. Chronic obstructive pulmonary disease. 9. Factor V Leiden. PLAN: Continue with IV antibiotic. Continue with wound care. Continue nutritional support and pain management. She is apparently scheduled for suprapubic catheter tomorrow and a Port-A-Cath on Wednesday. YOLI MEJIA MD DR: Clari JOB#: [id number] / [id number]
[2019-06-18] MEDS: oxyCODONE/APAP 5/325 1 TAB TABLET PO PRN ×2 (14:12→23:07)
[2019-06-18 15:00] VITALS: BP 119/71
[2019-06-18 19:00] VITALS: BP 118/62
[2019-06-18] MEDS: ALPRAZolam 0.5 MG TABLET PO SCH (20:54)
[2019-06-18 22:48] VITALS: BP 131/77
[2019-06-19] VITALS (14 sets, daily range): BP systolic 95–129; BP diastolic 63–87
[2019-06-19] MEDS: PIPERACILLIN/TAZOBACTAM 3.375 GM in IV NORMAL SALINE 50ML 50 ML IV SCH ×4 (05:42→23:35)
[2019-06-19] MEDS: IV NORMAL SALINE 1000ML BAG 1,000 ML IV SCH ×2 (05:45→18:35)
--- NOTE | 2019-06-19 08:42 | NUR ---
SW following pt. Per Physician note, Pt is scheduled for suprapubic catheter tomorrow and a Port-A-Cath on Wednesday. Will continue to follow.
--- NOTE | 2019-06-19 09:16 | PDOC ---
ZEYNEP AJ APRN 06/19/19 0916: SUBJECTIVE Subjective Pt sleeping, appears comfortable. Per RN, patient is on the schedule for SP tube insertion with Dr. Taylor of IR. Her last Eliquis dose was at 0825 on the . OBJECTIVE Objective Physical Exam: General appearance: Sleeping Head: Normocephalic, without obvious abnormality Eyes: closed Lungs: Regular respirations, non labored breathing Pelvic: + Shafer catheter in place draining clear yellow urine Extremities: Contractures bilateral lower extremities. Vital Signs Vital Signs Date Time Temp Pulse Resp B/P (MAP) Pulse Ox O2 Delivery O2 Flow Rate FiO2 06/19/19 07:00 98.0 113 18 112/70 (84) 94 Room Air 98.0 06/19/19 02:30 97.9 89 15 119/71 (87) 96 Room Air 97.9 06/19/19 00:25 18 97 Room Air 06/18/19 23:07 18 97 Room Air 06/18/19 22:48 99.3 85 15 131/77 (95) 97 Room Air 99.3 06/18/19 20:07 Room Air 06/18/19 19:00 97.9 97 16 118/62 (80) 92 Room Air 97.9 06/18/19 15:00 98.1 96 18 119/71 (87) 97 Room Air 98.1 06/18/19 10:54 99.0 92 18 114/73 (87) 95 Room Air 99.0 I & O Intake and Output 06/19/19 06:59 Intake Total 1630 ml Output Total 3200 ml Balance -1570 ml Intake Oral 680 ml IV Total 950 ml Output Urine Total 3200 ml PHYSICAL EXAM Physical Exam Physical Exam: General appearance: Sleeping Head: Normocephalic, without obvious abnormality Eyes: closed Lungs: Regular respirations, non labored breathing Pelvic: + Shafer catheter in place draining clear yellow urine Extremities: Contractures bilateral lower extremities. ASSESSMENT/PLAN Assessment/Plan Pt is on the schedule for SP tube insertion this afternoon with Dr. Taylor of IR. Nursing to maintain Shafer catheter until SP tube insertion. Will follow up with patient tomorrow. Problems: (1) Shafer catheter in place (2) Neurogenic bladder MARC GILLIAM MD 06/22/19 1078: ASSESSMENT/PLAN Assessment/Plan Agree with assessment and plan. ZEYNEP AJ APRN Jun 19, 2019 09:16 MARC GILLIAM MD Jun 22, 2019 14:28
--- NOTE | 2019-06-19 09:18 | PDOC ---
PULMONARY PROGRESS NOTES Subjective NOT MORE SOA Vitals Vital Signs Date Time Temp Pulse Resp B/P (MAP) Pulse Ox O2 Delivery O2 Flow Rate FiO2 06/19/19 07:00 98.0 113 18 112/70 (84) 94 Room Air 98.0 ROS: No Nausea General: Alert, No acute distress Lungs: Other (decrease bases,) Cardiovascular: S1, S2 Abdomen: Soft, Non-tender Neuro Exam: Alert Extremities: No Edema Skin: Warm, Dry (resp effort imporved somehwat after fluids.) Labs Laboratory Tests Test 06/18/19 05:50 White Blood Count 7.0 x10^3/uL (4.0-11.0) Red Blood Count 4.40 x10^6/uL (3.50-5.40) Hemoglobin 9.7 g/dL (12.0-15.5) Hematocrit 30.5 % (36.0-47.0) Mean Corpuscular Volume 69 fL (79-100) Mean Corpuscular Hemoglobin 22 pg (25-35) Mean Corpuscular Hemoglobin Concent 32 g/dL (31-37) Red Cell Distribution Width 18.9 % (11.5-14.5) Platelet Count 481 x10^3/uL (140-400) Sodium Level 142 mmol/L (136-145) Potassium Level 3.7 mmol/L (3.5-5.1) Chloride Level 107 mmol/L (98-107) Carbon Dioxide Level 27 mmol/L (21-32) Anion Gap 8 (6-14) Blood Urea Nitrogen 5 mg/dL (7-20) Creatinine 0.4 mg/dL (0.6-1.0) Estimated GFR (Cockcroft-Gault) 172.6 Glucose Level 68 mg/dL (70-99) Calcium Level 8.7 mg/dL (8.5-10.1) Medications Active Scripts Medications Dose Route/Sig Max Daily Dose Days Date Category Augmentin 875-125 Tablet (Amoxicillin/Potassium Clav) 1 Each Tablet 1 Tab PO BID 5 05/29/19 Rx Oxycodone HCl ER (Oxycodone HCl) 10 Mg Tab.er.12h 10 Mg PO BID 05/24/19 Reported Dantrolene Sodium 25 Mg Capsule 75 Mg PO QID 05/24/19 Reported Acidophilus (Lactobacillus Acidophilus) 1 Each Tab.chew 2 Each PO BID 05/24/19 Reported Thera Tablet (Multivitamin with Folic Acid) 400 Mcg Tablet 400 Mcg PO DAILY 05/24/19 Reported Sennosides 8.6 Mg Tablet 8.6 Mg PO DAILY 05/24/19 Reported Percocet 5-325 Mg Tablet (Oxycodone/Acetaminophen) 1 Each Tablet 1 Tab PO PRN Q4HRS PRN 05/24/19 Reported Potassium Chloride 20 Meq Tablet.er 40 Meq PO DAILY 12/30/18 Reported Oxybutynin Chloride 5 Mg Tablet 5 Mg PO TID 12/30/18 Reported Zofran (Ondansetron Hcl) 4 Mg Tablet 1 Tab PO PRN Q4HRS PRN 12/30/18 Reported NICODERM CQ 14mg (Nicotine) 1 Each Patch.td24 1 Patch TP DAILY 12/30/18 Reported Loratadine 10 Mg Tablet 1 Tab PO DAILY 12/30/18 Reported Duoneb 0.5-3(2.5) Mg/3 Ml (Albuterol/Ipratropium) 3 Ml Ampul.neb 3 Ml NEB TID 12/30/18 Reported Mucinex (Guaifenesin) 600 Mg Tablet.er 1 Tab PO BID 12/30/18 Reported Ferrous Sulfate 325 Mg Tablet 325 Mg PO DAILY 12/30/18 Reported Famotidine 20 Mg Tablet 20 Mg PO BID 12/30/18 Reported Cymbalta (Duloxetine Hcl) 30 Mg Capsule.dr 30 Mg PO DAILY 12/30/18 Reported Baclofen 20 Mg Tablet 20 Mg PO QID 12/30/18 Reported Eliquis (Apixaban) 5 Mg Tablet 5 Mg PO BID 12/30/18 Reported Alprazolam 0.5 Mg Tablet 1 Tab PO HS 12/30/18 Reported Tylenol (Acetaminophen) 325 Mg Tablet 650 Mg PO PRN Q4HRS PRN 12/30/18 Reported Impression . 1. Acute respiratory failure due to pneumonia, septic shock 2. Septic shock. resolved 3. Lactic acidosis secondary to sepsis. resolved 4. Pneumonia, gram-positive, gram-negative. 5. Pyuria. 6. Chronic sacrococcygeal pressure wounds, stage 4. 7. Progressive multiple sclerosis. 8. History of Clostridium difficile. 9. History of methicillin-resistant Staphylococcus aureus. 10.Tobacco dependence. 11. Factor V Leiden mutation.no PE/ DVT 12. Severe PCM 13. Low K, Mg, CORRECTED 14. MS 8/4. BLOOD CULTURE Final GRAM POSITIVE COCCI IN CLUSTERS 2 SETS DRAWN, 1 OF 4 POSITIVE Plan . CONTINUE THE SAME 1. 02 titration to keep sat 92% 2. Antibiotics per ID 3. repeat cxr, reviewed, Right basilar airspace disease is improved 4. clinically improving 5. Continue home meds. 6. DVT and GI prophylaxis. 7. Clostridium difficile prophylaxis per ID. PARVEZ HERNANDEZ MD Jun 19, 2019 09:18
[2019-06-19] MEDS ORDERED: LIDOCAINE WITH 8.4% SOD BICARB 3 ML DISP.SYRIN. ONE (10:50)
[2019-06-19] MEDS ORDERED: IOHEXOL 240 MG/ML 50ML VIAL. ONE (10:51)
[2019-06-19] MEDS ORDERED: MIDAZOLAM HCL/PF 2 MG/2 ML VIAL. ONE (11:07)
[2019-06-19] MEDS ORDERED: fentaNYL PF VIAL 100 MCG/2 ML VIAL ONE (11:08)
[2019-06-19] MEDS ORDERED: LIDOCAINE WITH 8.4% SOD BICARB 3 ML DISP.SYRIN. IJ ONE (11:45)
[2019-06-19] MEDS ORDERED: MIDAZOLAM HCL/PF 2 MG/2 ML VIAL. IV ONE (11:45)
[2019-06-19] MEDS ORDERED: fentaNYL PF VIAL 100 MCG/2 ML VIAL IV ONE (11:45)
[2019-06-19] MEDS: DANTROLENE SODIUM 25 MG CAPSULE PO SCH ×4 (13:00→21:19)
[2019-06-19] MEDS: NYSTATIN 100,000 UNITS/ML 5 ML ORAL.SUSP. SWSW SCH ×4 (13:00→21:19)
[2019-06-19] MEDS: OXYBUTYNIN CHLORIDE 5 MG TABLET PO SCH ×3 (13:12→21:19)
[2019-06-19] MEDS: FERROUS SULFATE 325 MG TABLET. PO SCH (13:12)
[2019-06-19] MEDS: CYCLOBENZAPRINE 10 MG TABLET. PO SCH ×3 (13:12→21:19)
[2019-06-19] MEDS: MULTIVITAMIN with MINERAL TABLET. PO SCH (13:12)
[2019-06-19] MEDS: POTASSIUM CHLORIDE 20 MEQ TABLET.ER. PO SCH (13:12)
[2019-06-19] MEDS: LACTOBACILLUS RHAMNOSUS GG 1 CAPSULE. PO SCH ×2 (13:13→21:18)
[2019-06-19] MEDS: DULoxetine HCL 30 MG CAPSULE.DR PO SCH (13:13)
[2019-06-19] MEDS: FAMOTIDINE 20 MG TABLET. PO SCH ×2 (13:13→21:19)
--- NOTE | 2019-06-19 13:19 | PN ---
DATE: 06/19/2019 SUBJECTIVE: The patient is resting, slightly propped up, sleeping comfortably, in no apparent distress, arousable. On questioning her, denied any complaint. She is n.p.o. from midnight as she is scheduled for suprapubic catheter placement today. OBJECTIVE: GENERAL: On examining her, she was pale, cachectic, but no jaundice, cyanosis or thyromegaly. No jugular venous distention. No limb edema. VITAL SIGNS: Her heart rate was 113, blood pressure was 112/70, temperature was 98.0, respiratory rate was 18 and oxygen saturation was 94% on room air. HEAD, EYES, EARS, NOSE AND THROAT: Showed normocephalic, atraumatic. NECK: Supple. HEART: Normal first and second heart sounds with no gallop or murmur. CHEST: Clear to auscultation. No crepitation or rhonchi. ABDOMEN: Scaphoid, soft, nontender. NEUROLOGIC: She was sleepy, but arousable. All cranial nerves intact. She has functional quadriplegia with neurogenic bladder requiring indwelling Shafer catheter. She has large sacrococcygeal decubitus ulcer. Her intake over the last 24 hours was 1900, output was 3775. LABORATORY DATA: Her lab work as of yesterday showed a white cell count 7000, hemoglobin 10, hematocrit 30, MCV 69, and platelet count 481,000. Her chemistry showed a serum sodium 142, potassium 3.7, chloride 107, bicarbonate 27, anion gap of 8, BUN 5, creatinine 0.4, estimated GFR was 172 mL per minute. Her glucose was 68, calcium was 8.7. Prothrombin time was 18.9, INR 1.6. ASSESSMENT: 1. Severe sepsis with lactic acidosis and hypotension resolved. She is off Levophed. 2. She has healthcare-associated pneumonia. 3. Urinary tract infection with growth of more than 100,000 colony forming units per mL, gram-negative rods identified as Klebsiella pneumoniae as well as Escherichia coli. Her blood culture has grown gram-positive cocci identified as coagulase-negative Staphylococcus species that is basically resistant to oxacillin. 4. Chronic sacrococcygeal decubitus ulcer. 5. Progressive multiple sclerosis with functional quadriplegia and neurogenic bladder requiring indwelling Shafer catheter. 6. History of Clostridium difficile colitis. 7. History of methicillin-resistant Staphylococcus aureus, vancomycin resistant Enterococcus as well as multidrug resistant infection. 8. Chronic obstructive pulmonary disease. 9. Factor V Leiden. PLAN: To continue with IV antibiotic. She is now on piperacillin and tazobactam. She is to continue with wound care, nutritional support. The patient is scheduled for surgery, catheter placement today and abort the catheter placement tomorrow. YOLI MEJIA MD DR: JUJU/ronit JOB#: [id number] / [id number]
--- NOTE | 2019-06-19 13:54 | PDOC ---
Infectious Disease Note Subjective Subjective feeling better, though weak had suprapubic cath done ROS ROS no n/v/d/ Vital Sign Vital Signs Vital Signs Date Time Temp Pulse Resp B/P (MAP) Pulse Ox O2 Delivery O2 Flow Rate FiO2 06/19/19 12:35 105 123/87 (99) 94 06/19/19 11:53 12 Room Air 06/19/19 11:49 2.0 06/19/19 11:00 97.6 97.6 Physical Exam PHYSICAL EXAM GENERAL: Resting quietly, arouses to name HEENT: Oropharynx dry, clear LUNGS: Clear to auscultation. HEART: S1 and S2. ABDOMEN: Soft and nontender with bowel sounds present. GENITOURINARY: Indwelling Shafer in place (8-5). EXTREMITIES: No gross edema or cyanosis. Contractures and muscle atrophy. + heel protectors SKIN: Warm to touch. No signs of rash. Sacrococcygeal wound- clean (pic reviewed) NEUROLOGIC: Arouses to name, answering questions appropriately. RIJ (06/13) without signs of complications Labs Lab Laboratory Tests Test 06/19/19 10:15 Prothrombin Time 14.0 SEC (11.7-14.0) Prothromb Time International Ratio 1.1 (0.8-1.1) Activated Partial Thromboplast Time 29 SEC (24-38) Micro URINE CULTURE Final Preliminary report Preliminary Report Preliminary report Final report URINE CULTURE RES 1 Final Gram negative rods Gram negative rods Greater than 100,000 colony forming units per mL Performing lab: [address] [address] Dir: ROCK Link MD Gram negative rods Greater than 100,000 colony forming units per mL Performing lab: [address] [address] Dir: ROCK Link MD Klebsiella pneumoniae Greater than 100,000 colony forming units per mL Performed at: [address] [id number] Pastry Mixer: ROCK Link MD, Phone: [phone] Greater than 100,000 colony forming units per mL Multi-Drug Resistant Organism Susceptibility profile is consistent with a probable ESBL. URINE CULTURE RES 2 Final Escherichia coli Greater than 100,000 colony forming units per mL Performed at: [address], [place], [place] [id number] Pastry Mixer: ROCK Link MD, Phone: [phone] Greater than 100,000 colony forming units per mL Cefazolin <=4 ug/mL Objective Assessment BC + GPC (1 of 4 bottles), 06/11. CoNS likely contaminate Sepsis with lactic acidosis and hypotension, off vasopressor support - clinically improving HCAP Pyuria. Shafer chg 06/12. E. coli and Klebsiella Leukocytosis - improved Chronic sacrococcygeal pressure wound MS h/x C. diff colitis 12/2018 h/o MRSA, VRE and MDR infections h/o E. coli in urine Plan Plan of Care Extra blanket provided, more comfortable Continue Zosyn doing better today Maintain aspiration precautions Wound team following Offloading Port-A-Cath on Wednesday 06/20 D/w nurse ROSEMARY THOMAS MD Jun 19, 2019 13:54
[2019-06-19] MEDS: ALPRAZolam 0.5 MG TABLET PO SCH (21:19)
[2019-06-19] MEDS: oxyCODONE/APAP 5/325 1 TAB TABLET PO PRN (21:23)
[2019-06-20] VITALS (10 sets, daily range): BP systolic 74–135; BP diastolic 55–101
[2019-06-20] MEDS: IV NORMAL SALINE 1000ML BAG 1,000 ML IV SCH ×2 (02:00→18:15)
[2019-06-20] MEDS: PIPERACILLIN/TAZOBACTAM 3.375 GM in IV NORMAL SALINE 50ML 50 ML IV SCH ×3 (06:15→18:15)
[2019-06-20 06:32] LABS: HEMATOCRIT 31.2 % (36.0-47.0); RED BLOOD COUNT 4.47 x10^6/uL (3.50-5.40); RED CELL DISTRIBUTION WIDTH 19.5 % (11.5-14.5)
[2019-06-20 06:51] LABS: ALBUMIN 2.4 g/dL (3.4-5.0); ALBUMIN/GLOBULIN RATIO 0.7 (1.0-1.7); CALCIUM 8.4 mg/dL (8.5-10.1); CREATININE 0.4 mg/dL (0.6-1.0); GFR 172.6; POTASSIUM 3.8 mmol/L (3.5-5.1); TOTAL BILIRUBIN 0.1 mg/dL (0.2-1.0); TOTAL PROTEIN 5.9 g/dL (6.4-8.2)
[2019-06-20] MEDS ORDERED: fentaNYL PF VIAL 100 MCG/2 ML VIAL IV PRN (07:00)
[2019-06-20] MEDS ORDERED: IV RINGERS,LACTATED 1000ML 1,000 ML IV SCH (07:00)
[2019-06-20] MEDS ORDERED: ONDANSETRON PF 4 MG/2 ML VIAL. IV PRN (07:00)
[2019-06-20] MEDS ORDERED: PROCHLORPERAZINE 10 MG/2 ML VIAL. IV PRN (07:00)
[2019-06-20] MEDS ORDERED: MORPHINE SULFATE 2 MG/ML VIAL. IV PRN (07:00)
[2019-06-20] MEDS ORDERED: HYDROmorphone 2 MG/ML VIAL IV PRN (07:00)
[2019-06-20] MEDS: POTASSIUM CHLORIDE 20 MEQ TABLET.ER. PO SCH (08:00)
[2019-06-20] MEDS: FERROUS SULFATE 325 MG TABLET. PO SCH (08:00)
[2019-06-20] MEDS: CYCLOBENZAPRINE 10 MG TABLET. PO SCH ×3 (09:00→21:32)
[2019-06-20] MEDS: MULTIVITAMIN with MINERAL TABLET. PO SCH (09:00)
[2019-06-20] MEDS: DULoxetine HCL 30 MG CAPSULE.DR PO SCH (09:00)
[2019-06-20] MEDS: DANTROLENE SODIUM 25 MG CAPSULE PO SCH ×4 (09:00→21:32)
[2019-06-20] MEDS: LACTOBACILLUS RHAMNOSUS GG 1 CAPSULE. PO SCH ×2 (09:00→21:31)
[2019-06-20] MEDS: OXYBUTYNIN CHLORIDE 5 MG TABLET PO SCH ×3 (09:00→21:31)
[2019-06-20] MEDS: NYSTATIN 100,000 UNITS/ML 5 ML ORAL.SUSP. SWSW SCH ×4 (09:00→21:00)
[2019-06-20] MEDS: FAMOTIDINE 20 MG TABLET. PO SCH ×2 (09:00→21:31)
--- NOTE | 2019-06-20 09:11 | RAD ---
06/20/2019 9:05 AM Ultrasound and fluoroscopically guided placement of a suprapubic catheter Indication: Chronic urinary tract infection. Long-term bladder decompression needed Consent: The procedure was explained in its entirety to the patient or the patients designated community representative by a member of the treatment team, including a discussion of the risks, benefits and commonly accepted alternatives to the procedure, as well as the expected consequences of no therapy whatsoever. Discussion of the risks included, but was not limited to, those that are most frequent and those that are rare but possibly severe or life-threatening, as well as the possibility of unforeseen complications. All elements of maximal sterile barrier technique including the use of a cap, mask, sterile gown, sterile gloves, large sterile sheet, appropriate hand hygiene, and 2% chlorhexidine for cutaneous antisepsis (or acceptable alternative antiseptic per current guidelines) were followed for this procedure. The anterior inferior pelvis was prepped and draped using aforementioned sterile technique. The bladder was filled with saline from pre-existing Shafer catheter. Ultrasound evaluation demonstrates the distended bladder, with Shafer catheter in place. The overlying skin and subcutaneous tissues were anesthetized with 1% lidocaine. Under direct ultrasound guidance and micropuncture needles advanced into the bladder. The wire was advanced and the bladder over which a 5 Gambian sheath was placed. The wire was exchanged for a stiff Amplatz wire. An 8 mm high-pressure balloon was deployed across the subcutaneous tract. A peel-away sheath was advanced into the bladder through which a 20 Gambian catheter was placed. Catheter position was confirmed with administration of contrast. The retention balloon was inflated and retracted against the anterior bladder wall. The catheter was secured in place. Sterile dressings were applied. No immediate complications were identified. Total Fluoroscopy Time: 3.1 Minutes contrast. Dose area Product: 11 Gycm2 Sedation The procedure was performed under conscious sedation, including continuous cardiopulmonary monitoring via a dedicated sedation nurse. Face to face sedation time : 30 minutes Impression: Ultrasound and fluoroscopically guided placement, suprapubic catheter
[2019-06-20] MEDS ORDERED: HEPARIN for IV BOLUS 10,000 UNIT/10 ML VIAL. ONE (09:28)
[2019-06-20] MEDS ORDERED: BUPIVACAINE MPF 0.25% 30 ML VIAL. ONE (09:28)
[2019-06-20] MEDS ORDERED: HEPARIN PF 500 UNIT/5 ML DISP.SYRIN. IV ONE (09:28)
[2019-06-20] MEDS ORDERED: PROPOFOL 20 ML IV ONE (09:39)
[2019-06-20] MEDS ORDERED: LIDOCAINE 2% PF 5 ML VIAL. ONE (09:39)
--- NOTE | 2019-06-20 09:48 | PDOC ---
MADAIZEYNEP L PRINCIPAL PROCESS ENGINEER 06/20/19 0948: SUBJECTIVE Subjective Patient doing well. A little sore this am, but feels like SP tube is working well. OBJECTIVE Objective Physical Exam: General appearance: Alert and Oriented Head: Normocephalic, without obvious abnormality Eyes: conjunctivae/corneas clear. PERRL, EOM's intact. Fundi benign Lungs: Regular respirations, non labored breathing Abdomen: soft, non-tender. . SP tube in place draining clear yellow urine. Site has a split guaze dressing present that is CDI. Extremities: lower extremities contracted Vital Signs Vital Signs Date Time Temp Pulse Resp B/P (MAP) Pulse Ox O2 Delivery O2 Flow Rate FiO2 06/20/19 07:00 97.7 101 16 120/78 (92) 92 Room Air 97.7 06/20/19 03:00 97.9 90 18 104/60 (75) 97 Room Air 2.0 97.9 06/19/19 23:08 98.4 102 18 111/70 (84) 97 Room Air 98.4 06/19/19 23:07 18 92 Room Air 06/19/19 21:23 18 92 Room Air 06/19/19 19:54 Room Air 06/19/19 19:00 98.0 116 19 114/81 (92) 92 Room Air 2.0 98.0 06/19/19 15:21 110 113/72 (86) 06/19/19 14:21 114 95/69 (78) 06/19/19 13:51 111 104/66 (79) 06/19/19 13:21 127 111/76 (88) 97 06/19/19 13:06 95 112/70 (84) 96 06/19/19 12:51 96 129/73 (91) 97 06/19/19 12:35 105 123/87 (99) 94 06/19/19 12:24 104 111/80 (90) 06/19/19 11:53 108 12 96 Room Air 06/19/19 11:49 16 96 Nasal Cannula 2.0 06/19/19 11:00 97.6 122 16 107/80 (89) 92 Room Air 97.6 I & O Intake and Output 06/20/19 06:59 Intake Total 750 ml Output Total 3300 ml Balance -2550 ml Intake Oral 750 ml Tube Feeding 0 ml Output Urine Total 3300 ml PHYSICAL EXAM Physical Exam Physical Exam: General appearance: Alert and Oriented Head: Normocephalic, without obvious abnormality Eyes: conjunctivae/corneas clear. PERRL, EOM's intact. Fundi benign Lungs: Regular respirations, non labored breathing Abdomen: soft, non-tender. . SP tube in place draining clear yellow urine. Site has a split guaze dressing present that is CDI. Extremities: lower extremities contracted ASSESSMENT/PLAN Assessment/Plan [facility] cannot accommodate patient in our clinic as she requires a lift for bed t ransfers. Please arrange for follow up at Urology for sp tube change in one month from 06/19/19-Orders entered for social work consult. SP tube functioning well, site CDI. Discussed with patient that she will have some mild tenderness at site for a few days afterward. Should improve with time. Will follow peripherally while in house. Discussed above with attending RN. COMMENT Lab Laboratory Tests Test 06/19/19 10:15 06/20/19 06:20 Prothrombin Time 14.0 SEC (11.7-14.0) Prothromb Time International Ratio 1.1 (0.8-1.1) Activated Partial Thromboplast Time 29 SEC (24-38) White Blood Count 7.0 x10^3/uL (4.0-11.0) Red Blood Count 4.47 x10^6/uL (3.50-5.40) Hemoglobin 10.0 g/dL (12.0-15.5) Hematocrit 31.2 % (36.0-47.0) Mean Corpuscular Volume 70 fL (79-100) Mean Corpuscular Hemoglobin 22 pg (25-35) Mean Corpuscular Hemoglobin Concent 32 g/dL (31-37) Red Cell Distribution Width 19.5 % (11.5-14.5) Platelet Count 423 x10^3/uL (140-400) Sodium Level 142 mmol/L (136-145) Potassium Level 3.8 mmol/L (3.5-5.1) Chloride Level 108 mmol/L (98-107) Carbon Dioxide Level 28 mmol/L (21-32) Anion Gap 6 (6-14) Blood Urea Nitrogen 6 mg/dL (7-20) Creatinine 0.4 mg/dL (0.6-1.0) Estimated GFR (Cockcroft-Gault) 172.6 BUN/Creatinine Ratio 15 (6-20) Glucose Level 71 mg/dL (70-99) Calcium Level 8.4 mg/dL (8.5-10.1) Total Bilirubin 0.1 mg/dL (0.2-1.0) Aspartate Amino Transf (AST/SGOT) 8 U/L (15-37) Alanine Aminotransferase (ALT/SGPT) 10 U/L (14-59) Alkaline Phosphatase 35 U/L (46-116) Total Protein 5.9 g/dL (6.4-8.2) Albumin 2.4 g/dL (3.4-5.0) Albumin/Globulin Ratio 0.7 (1.0-1.7) MARC GILLIAM MD 06/22/19 1427: ASSESSMENT/PLAN Assessment/Plan Agree with assessment and plan. ZEYNEP AJ APRN Jun 20, 2019 09:48 MARC GILLIAM MD Jun 22, 2019 14:27
--- NOTE | 2019-06-20 09:58 | PN ---
DATE: 06/20/2019 SUBJECTIVE: The patient is resting, slightly propped up in bed, in no apparent distress. She is awake, alert. On questioning her, denied any complaint. She did have her suprapubic catheter placed successfully yesterday and she is scheduled for a Port-A-Cath placement today. PHYSICAL EXAMINATION: GENERAL: When I examined her, she was pale, cachectic, but no jaundice, cyanosis or thyromegaly. No jugular venous distention. No limb edema. VITAL SIGNS: Her heart rate was 101, blood pressure was 120/78, temperature was 97.7, respiratory rate was 16, and oxygen saturation was 92% on room air. The rest of clinical examination is stable, has not really changed. Her intake was 1600, output was 5200. LABORATORY DATA: As of this morning, her white cell count of 7000, hemoglobin 10, hematocrit 31, MCV 70 and platelet count of 123,000. Her chemistry showed a serum sodium 142, potassium 3.8, chloride 108, bicarbonate 28, anion gap of 6, BUN 6, creatinine 0.4, estimated GFR was 72 mL per minute. Her glucose was 71, calcium was 8.4. Total bilirubin, AST, ALT, alkaline phosphatase were normal. Total protein was 5.9, albumin 0.7. Her prothrombin time was 14, INR 1.1, aPTT was 29. ASSESSMENT: 1. Severe sepsis, lactic acidosis and hypotension, resolved. She is off Levophed. 2. She has healthcare-associated pneumonia. 3. Urinary tract infection with growth of more than 100,000 colony forming units per mL of gram-negative rods identified as Klebsiella pneumoniae as well as Escherichia coli. 4. Her blood culture has grown gram-positive cocci, identified as coagulase-negative staph species that is resistant to oxacillin. 5. She has chronic sacrococcygeal decubitus ulcer. 6. Progressive multiple sclerosis with functional quadriplegia and neurogenic bladder for which she underwent suprapubic catheter placement. 7. History of Clostridium difficile colitis. 8. History of methicillin-resistant Staphylococcus aureus, vancomycin-resistant Enterococcus as well as multidrug resistant infection. 9. Chronic obstructive pulmonary disease. 10. Factor V Leiden. PLAN: To continue with IV antibiotic. She is now on piperacillin and tazobactam. She is to continue wound care. Continue nutritional support. She is scheduled for the Port-A-Cath placement today. YOLI MEJIA MD DR: JUJU/ronit JOB#: [id number] / [id number]
--- NOTE | 2019-06-20 10:43 | PDOC ---
Infectious Disease Note Subjective Subjective feeling better, ROS ROS no n/v/d/ Vital Sign Vital Signs Vital Signs Date Time Temp Pulse Resp B/P (MAP) Pulse Ox O2 Delivery O2 Flow Rate FiO2 06/20/19 07:00 97.7 101 16 120/78 (92) 92 Room Air 97.7 06/20/19 03:00 2.0 Physical Exam PHYSICAL EXAM GENERAL: Resting quietly, HEENT: Oropharynx dry, clear LUNGS: Clear to auscultation. HEART: S1 and S2. ABDOMEN: Soft and nontender with bowel sounds present. GENITOURINARY: Indwelling Shafer in place (8-5). EXTREMITIES: No gross edema or cyanosis. Contractures and muscle atrophy. + heel protectors SKIN: Warm to touch. No signs of rash. Sacrococcygeal wound- clean (pic reviewed) NEUROLOGIC: Arouses to name, answering questions appropriately. RIJ (06/13) without signs of complications Labs Lab Laboratory Tests Test 06/20/19 06:20 White Blood Count 7.0 x10^3/uL (4.0-11.0) Red Blood Count 4.47 x10^6/uL (3.50-5.40) Hemoglobin 10.0 g/dL (12.0-15.5) Hematocrit 31.2 % (36.0-47.0) Mean Corpuscular Volume 70 fL (79-100) Mean Corpuscular Hemoglobin 22 pg (25-35) Mean Corpuscular Hemoglobin Concent 32 g/dL (31-37) Red Cell Distribution Width 19.5 % (11.5-14.5) Platelet Count 423 x10^3/uL (140-400) Sodium Level 142 mmol/L (136-145) Potassium Level 3.8 mmol/L (3.5-5.1) Chloride Level 108 mmol/L (98-107) Carbon Dioxide Level 28 mmol/L (21-32) Anion Gap 6 (6-14) Blood Urea Nitrogen 6 mg/dL (7-20) Creatinine 0.4 mg/dL (0.6-1.0) Estimated GFR (Cockcroft-Gault) 172.6 BUN/Creatinine Ratio 15 (6-20) Glucose Level 71 mg/dL (70-99) Calcium Level 8.4 mg/dL (8.5-10.1) Total Bilirubin 0.1 mg/dL (0.2-1.0) Aspartate Amino Transf (AST/SGOT) 8 U/L (15-37) Alanine Aminotransferase (ALT/SGPT) 10 U/L (14-59) Alkaline Phosphatase 35 U/L (46-116) Total Protein 5.9 g/dL (6.4-8.2) Albumin 2.4 g/dL (3.4-5.0) Albumin/Globulin Ratio 0.7 (1.0-1.7) Micro URINE CULTURE Final Preliminary report Preliminary Report Preliminary report Final report URINE CULTURE RES 1 Final Gram negative rods Gram negative rods Greater than 100,000 colony forming units per mL Performing lab: [address] Dir: ROCK Link MD Gram negative rods Greater than 100,000 colony forming units per mL Performing lab: [place] [address] Dir: ROCK Link MD Klebsiella pneumoniae Greater than 100,000 colony forming units per mL Performed at: [place] [address] Virtual Recruiter: ROCK Link MD, Phone: [phone] Greater than 100,000 colony forming units per mL Multi-Drug Resistant Organism Susceptibility profile is consistent with a probable ESBL. URINE CULTURE RES 2 Final Escherichia coli Greater than 100,000 colony forming units per mL Performed at: [place] [id number] Virtual Recruiter: ROCK Link MD, Phone: [phone] Greater than 100,000 colony forming units per mL Cefazolin <=4 ug/mL Objective Assessment BC + GPC (1 of 4 bottles), 06/11. CoNS likely contaminate Sepsis with lactic acidosis and hypotension, off vasopressor support - clinically improving HCAP Pyuria. Shafer chg 06/12. E. coli and Klebsiella Leukocytosis - improved Chronic sacrococcygeal pressure wound MS h/x C. diff colitis 12/2018 h/o MRSA, VRE and MDR infections h/o E. coli in urine Plan Plan of Care Continue Zosyn Maintain aspiration precautions Wound team following Offloading Port-A-Cath on Wednesday 06/20 D/w ROSEMARY Morrissey MD Jun 20, 2019 10:43
[2019-06-20] MEDS ORDERED: DEXAMETHASONE SOD PHOS 4 MG/ML VIAL ONE (13:18)
[2019-06-20] MEDS ORDERED: ONDANSETRON PF 4 MG/2 ML VIAL. ONE (13:18)
[2019-06-20] MEDS ORDERED: SEVOFLURANE 31 TO 60 MINUTES. IH ONE (13:23)
[2019-06-20] MEDS ORDERED: fentaNYL PF VIAL 100 MCG/2 ML VIAL ONE ×3 (13:46→16:42)
--- NOTE | 2019-06-20 14:53 | PDOC4 ---
Operative Note Operative Note Date: 06/20/2019 Preoperative diagnosis: Multiple sclerosis venous insufficiency Postoperative diagnosis: Same Procedure: Port-A-Cath placement left internal jugular Surgeon: Alejandro Procedure: Patient is a 43-year-old female has multiple sclerosis multiple contractures has decubitus ulcers which she is needing long-term IV antibiotics she has very poor peripheral access has difficulty getting IV access. Procedure of Port-A-Cath placement was explained to the patient detail risk benefits were also discussed including bleeding infection and possible pneumothorax alternatives to this procedure also discussed with the patient is seemed to understand gave both verbal and written consent to have the procedure performed. Patient was taken to the operating room. She was left on her bed anesthesia was able to sedate her and intubated her on the bed and then she was moved over to the operating table secondary to her contractures her legs were way up to her ab domen she was bolstered with multiple pillows to provide support for her legs and keep her on her back in the supine position. Her neck and chest were prepped and draped usual sterile fashion using ChloraPrep and area over the deltopectoral groove was injected with quarter percent Marcaine plain incision was made with a 15 blade scalpel was carried down through the subcutaneous tis precious using electrocautery to provide hemostasis the cephalic vein was visualized seemed quite small attempts were made to access the wire would not pass probably secondary to small size. At this point attempts were made to access the subclavian vein which were unsuccessful. The sono site ultrasound was used to visualize the internal jugular on the left side and attempt was made to access the internal jugular with a micro-access needle unfortunately the carotid artery was accessed this was pulled and pressure was held. Intraoperative consult was placed with interventional radiology who came to the OR using the sono site machinery was able to access the internal jugular and placed a Salinger wire. I used the Salinger wire then to place a peel-away dilator this was all done under fluoroscopy and then the Port-A-Cath catheter was then placed through the peel-away and the tip was in the superior vena cava. The catheter was then tunneled underneath the skin to the incision on the left upper chest. Port was placed on the end of the catheter this was sewn into place on a pocket on the anterior chest wall. The port was then accessed there was good blood return was easily flushed with 100 units per millimeter heparin. The wound was then closed in 2 layers deep layer running 3-0 Vicryl and skin was reapproximated for septic and a Monocryl. The port was then accessed again with Hep-Lock again there was good blood return was locked with 1-1/2 mL of 1000 units per ml heparin lock. Wound was then dressed with Mastisol Steri-Strips and island dressings. A portable chest x-ray was taken in the operating room to veri fy placement for pneumothorax. Patient was awakened and asked bated operating room taken to recovery in stable condition all sponge instrument needle counts listed as correct estimate blood loss 30 mL MARCIN QUINN MD Jun 20, 2019 14:53
--- NOTE | 2019-06-20 15:16 | RAD ---
Chest radiograph 06/20/2019 2:21 PM INDICATION: Status post central venous catheter placement. COMPARISON: June 16, 2019 TECHNIQUE: Portable upright frontal view of the chest is provided. FINDINGS: The cardiomediastinal silhouette is within normal limits. Left chest wall infusion port catheter is identified with the distal tip projecting over the superior right atrium. Right IJ central venous catheter is identified with the distal tip projecting over the superior right atrium. No significant pulmonary vascular congestion or pleural effusions. IMPRESSION: Left-sided pneumothorax with 3.6 cm pleural separation and no significant mediastinal shift. Critical result: Findings discussed with patient's nurse, Carlene, at 06/20/2019 3:10 PM. FOR INTERNAL CODING PURPOSES RESULT CODE: (C) Electronically signed by: Lizbeth Jerome MD (06/20/2019 3:13 PM) [id number]
--- NOTE | 2019-06-20 15:20 | NUR ---
Wound Care Attempted to see pt for wound care, pt off unit for procedures, will f/u tomorrow.
--- NOTE | 2019-06-20 15:21 | RAD ---
PORTABLE CHEST 1V Clinical indications: Port-A-Cath placement. COMPARISON: June 16, 2019. Findings: A left IJ Port-A-Cath is in place and the tip is seen within the upper aspect of the right atrium. 20% left-sided pneumothorax is now evident. The patient is rotated towards the right side and therefore evaluation for mediastinal or cardiac shift is difficult. No pleural effusion or acute lung infiltrate is seen. A right IJ central line is unchanged in position. IMPRESSION: Placement of a left IJ Port-A-Cath with a 20% left-sided pneumothorax. Note-this critical result was called to the nurse in recovery area at 3:14 PM on June 20, 2019. Electronically signed by: Angel Grey MD (06/20/2019 3:18 PM) [place] [id number]
[2019-06-20] MEDS: fentaNYL PF VIAL 100 MCG/2 ML VIAL IV PRN ×2 (15:33→17:12)
--- NOTE | 2019-06-20 15:33 | PDOC ---
Provider Note Provider Note Date 06/20/2019 1532 Postoperative chest x-ray shows pneumothorax and no mediastinal shift patient is comfortable O2 saturations on her oxygen 92-93%, no respiratory distress breathing comfortably will monitor repeat chest x-ray in anjali. MARCIN QUINN MD Jun 20, 2019 15:33
--- NOTE | 2019-06-20 15:47 | RAD ---
Single view of the chest. 06/20/2019 1:00 PM Indication: Post port placement Comparison: Chest radiograph, June 16, 2019 Findings: The patient is somewhat rotated. There is a moderate left pneumothorax. New left sided port is noted with tip at the cavoatrial junction. Right lung is clear. No acute osseous changes are seen. IMPRESSION: 1. Moderate left pneumothorax 2. Left-sided port with tip at the cavoatrial junction Findings called to the ordering physician at 3:40 PM Electronically signed by: Shreyas Taylor MD (06/20/2019 3:44 PM) [id number]
[2019-06-20] MEDS ORDERED: LIDOCAINE WITH 8.4% SOD BICARB 3 ML DISP.SYRIN. ONE (16:29)
[2019-06-20] MEDS ORDERED: LIDOCAINE WITH 8.4% SOD BICARB 3 ML DISP.SYRIN. INJ ONE (16:30)
[2019-06-20] MEDS ORDERED: MIDAZOLAM HCL/PF 2 MG/2 ML VIAL. ONE (16:42)
--- NOTE | 2019-06-20 16:47 | RAD ---
CHEST AP ONLY 4:08 PM Clinical indications: Pneumothorax follow-up. COMPARISON: Same day at 2:21 PM FINDINGS/ IMPRESSION: Again seen is a left-sided pneumothorax which has decreased slightly in size within the left apical portion. Pneumothorax measures 28 mm from the left apical edge now and measured 39 mm previously. The lateral portion is unchanged. No pleural effusion or new lung infiltrate is seen. Electronically signed by: Angel Grey MD (06/20/2019 4:44 PM) [place] [id number]
--- NOTE | 2019-06-20 17:05 | PDOC ---
Provider Note Provider Note IR NOTE Small caliber 8 Fr chest tube placed on left. Pneumothorax reduced. Patient tolerated well. STEPHAN ARNETT MD Jun 20, 2019 17:05
[2019-06-20] MEDS ORDERED: MIDAZOLAM HCL/PF 2 MG/2 ML VIAL. IV ONE (17:15)
[2019-06-20] MEDS ORDERED: fentaNYL PF VIAL 100 MCG/2 ML VIAL IV ONE (17:15)
[2019-06-20] MEDS ORDERED: LIDOCAINE WITH 8.4% SOD BICARB 3 ML DISP.SYRIN. IJ ONE (17:15)
[2019-06-20] MEDS: oxyCODONE/APAP 5/325 1 TAB TABLET PO PRN ×2 (18:59→22:53)
[2019-06-20] MEDS: IPRATRPIUM/ALBUTEROL 0.5/2.5MG 3 ML NEBU. NEB SCH (20:52)
[2019-06-20] MEDS: ALPRAZolam 0.5 MG TABLET PO SCH (21:32)
[2019-06-21] MEDS: PIPERACILLIN/TAZOBACTAM 3.375 GM in IV NORMAL SALINE 50ML 50 ML IV SCH ×4 (00:02→18:10)
[2019-06-21 03:30] VITALS: BP 108/64
[2019-06-21] MEDS: IV NORMAL SALINE 1000ML BAG 1,000 ML IV SCH ×3 (05:17→16:40)
[2019-06-21] MEDS: oxyCODONE/APAP 5/325 1 TAB TABLET PO PRN ×5 (05:47→21:40)
[2019-06-21 07:00] VITALS: BP 108/67
[2019-06-21] MEDS: IPRATRPIUM/ALBUTEROL 0.5/2.5MG 3 ML NEBU. NEB SCH ×4 (07:47→20:26)
--- NOTE | 2019-06-21 09:10 | NUR ---
SW following pt. Pt moved from [facility] and is LTC resident at [facility]. JORGE notified Segun at [facility] to set up follow up appointment at urology a month after 06/19/19 for SP tube change.
[2019-06-21] MEDS: CYCLOBENZAPRINE 10 MG TABLET. PO SCH ×3 (09:16→21:32)
[2019-06-21] MEDS: FAMOTIDINE 20 MG TABLET. PO SCH ×2 (09:16→21:32)
[2019-06-21] MEDS: OXYBUTYNIN CHLORIDE 5 MG TABLET PO SCH ×3 (09:17→21:32)
[2019-06-21] MEDS: LACTOBACILLUS RHAMNOSUS GG 1 CAPSULE. PO SCH ×2 (09:17→21:32)
[2019-06-21] MEDS: MULTIVITAMIN with MINERAL TABLET. PO SCH (09:17)
[2019-06-21] MEDS: DULoxetine HCL 30 MG CAPSULE.DR PO SCH (09:17)
[2019-06-21] MEDS: DANTROLENE SODIUM 25 MG CAPSULE PO SCH ×4 (09:17→21:32)
[2019-06-21] MEDS: NYSTATIN 100,000 UNITS/ML 5 ML ORAL.SUSP. SWSW SCH ×5 (09:18→21:32)
[2019-06-21] MEDS: FERROUS SULFATE 325 MG TABLET. PO SCH (09:18)
[2019-06-21] MEDS: POTASSIUM CHLORIDE 20 MEQ TABLET.ER. PO SCH (09:18)
--- NOTE | 2019-06-21 09:24 | PDOC ---
Infectious Disease Note Subjective Subjective feeling ok events noted ROS ROS no n/v/d/ Vital Sign Vital Signs Vital Signs Date Time Temp Pulse Resp B/P (MAP) Pulse Ox O2 Delivery O2 Flow Rate FiO2 06/21/19 07:47 99 Nasal Cannula 2.0 06/21/19 07:00 97.6 77 16 108/67 (81) 97.6 Physical Exam PHYSICAL EXAM GENERAL: Resting quietly, HEENT: Oropharynx dry, clear LUNGS: Clear to auscultation. HEART: S1 and S2. ABDOMEN: Soft and nontender with bowel sounds present. GENITOURINARY: Indwelling Shafer in place (8-5). EXTREMITIES: No gross edema or cyanosis. Contractures and muscle atrophy. + heel protectors SKIN: Warm to touch. No signs of rash. Sacrococcygeal wound- clean (pic reviewed) NEUROLOGIC: Arouses to name, answering questions appropriately. RIJ (06/13) without signs of complications Labs Lab Laboratory Tests Test 06/20/19 14:06 Glucose (Fingerstick) 89 mg/dL (70-99) Micro URINE CULTURE Final Preliminary report Preliminary Report Preliminary report Final report URINE CULTURE RES 1 Final Gram negative rods Gram negative rods Greater than 100,000 colony forming units per mL Performing lab: [address] [id number] Dir: ROCK Link MD Gram negative rods Greater than 100,000 colony forming units per mL Performing lab: [address] [address] Dir: ROCK Link MD Klebsiella pneumoniae Greater than 100,000 colony forming units per mL Performed at: [address] [id number] [employer]er: ROCK Link MD, Phone: [phone] Greater than 100,000 colony forming units per mL Multi-Drug Resistant Organism Susceptibility profile is consistent with a probable ESBL. URINE CULTURE RES 2 Final Escherichia coli Greater than 100,000 colony forming units per mL Performed at: [address] [id number] [employer]er: ROCK Link MD, Phone: [phone] Greater than 100,000 colony forming units per mL Cefazolin <=4 ug/mL Objective Assessment BC + GPC (1 of 4 bottles), 06/11. CoNS likely contaminate Sepsis with lactic acidosis and hypotension, off vasopressor support - clinically improving HCAP Pyuria. Shafer chg 06/12. E. coli and Klebsiella Leukocytosis - improved Chronic sacrococcygeal pressure wound MS h/x C. diff colitis 12/2018 h/o MRSA, VRE and MDR infections h/o E. coli in urine Plan Plan of Care Continue Zosyn Maintain aspiration precautions Wound team following Offloading Port-A-Cath done, pneumothorax, s/p chest tube placement D/w nurse ROSEMARY THOMAS MD Jun 21, 2019 09:24
--- NOTE | 2019-06-21 09:52 | RAD ---
Chest radiograph 06/21/2019 5:00 AM INDICATION: Pneumothorax COMPARISON: June 20, 2019 TECHNIQUE: Frontal view of the chest is provided. FINDINGS: The cardiomediastinal silhouette is within normal limits. Left chest wall cardiac device and right IJ central venous catheter in similar position. New left-sided thoracostomy tube is identified with interval resolution of left-sided pneumothorax. No pulmonary vascular congestion or pleural effusions. There is bibasilar subsegmental atelectasis, new from the prior examination. IMPRESSION: New left-sided thoracostomy tube projecting over the left upper lung. Resolution of left-sided pneumothorax. Interval development of right basilar subsegmental atelectasis. Electronically signed by: Lizbeth Jerome MD (06/21/2019 9:49 AM) [id number]
--- NOTE | 2019-06-21 10:15 | PDOC ---
SURGICAL PROGRESS NOTE Subjective Patient doing well denies any respiratory complaints only pain is in her lower extremities Vital Signs Vital Signs Date Time Temp Pulse Resp B/P (MAP) Pulse Ox O2 Delivery O2 Flow Rate FiO2 06/21/19 09:18 18 Nasal Cannula 2.0 06/21/19 07:47 99 06/21/19 07:00 97.6 77 108/67 (81) 97.6 I&O Intake and Output 06/21/19 07:00 Intake Total 2310 ml Output Total 2680 ml Balance -370 ml Intake Oral 760 ml IV Total 1550 ml Output Urine Total 2650 ml Chest Tube Drainage Total 0 ml Estimated Blood Loss 30 ml PATIENT HAS A RAHMAN: Yes General: Alert, Oriented X3, Cooperative, mild distress Lungs: Clear to auscultation, Normal air movement, Other (Port-A-Cath and placed wounds clean dry and intact) Labs Laboratory Tests Test 06/19/19 10:15 06/20/19 06:20 06/20/19 14:06 Prothrombin Time 14.0 SEC (11.7-14.0) Prothromb Time International Ratio 1.1 (0.8-1.1) Activated Partial Thromboplast Time 29 SEC (24-38) White Blood Count 7.0 x10^3/uL (4.0-11.0) Red Blood Count 4.47 x10^6/uL (3.50-5.40) Hemoglobin 10.0 g/dL (12.0-15.5) Hematocrit 31.2 % (36.0-47.0) Mean Corpuscular Volume 70 fL (79-100) Mean Corpuscular Hemoglobin 22 pg (25-35) Mean Corpuscular Hemoglobin Concent 32 g/dL (31-37) Red Cell Distribution Width 19.5 % (11.5-14.5) Platelet Count 423 x10^3/uL (140-400) Sodium Level 142 mmol/L (136-145) Potassium Level 3.8 mmol/L (3.5-5.1) Chloride Level 108 mmol/L (98-107) Carbon Dioxide Level 28 mmol/L (21-32) Anion Gap 6 (6-14) Blood Urea Nitrogen 6 mg/dL (7-20) Creatinine 0.4 mg/dL (0.6-1.0) Estimated GFR (Cockcroft-Gault) 172.6 BUN/Creatinine Ratio 15 (6-20) Glucose Level 71 mg/dL (70-99) Calcium Level 8.4 mg/dL (8.5-10.1) Total Bilirubin 0.1 mg/dL (0.2-1.0) Aspartate Amino Transf (AST/SGOT) 8 U/L (15-37) Alanine Aminotransferase (ALT/SGPT) 10 U/L (14-59) Alkaline Phosphatase 35 U/L (46-116) Total Protein 5.9 g/dL (6.4-8.2) Albumin 2.4 g/dL (3.4-5.0) Albumin/Globulin Ratio 0.7 (1.0-1.7) Glucose (Fingerstick) 89 mg/dL (70-99) Laboratory Tests Test 06/20/19 14:06 Glucose (Fingerstick) 89 mg/dL (70-99) I have reviewed the following This morning's chest x-ray shows resolution of pneumothorax Problem List Problems Medical Problems: (1) Acute respiratory failure Status: Acute (2) HCAP (healthcare-associated pneumonia) Status: Acute (3) Hypokalemia Status: Acute (4) Hypomagnesemia Status: Acute (5) Multiple sclerosis, primary progressive Status: Chronic (6) Pyuria Status: Acute (7) Sepsis Status: Acute (8) Septic shock Status: Acute (9) Severe protein-calorie malnutrition Status: Chronic Assessment/Plan Status post Port-A-Cath placement with pneumothorax resolved with 8 Italian chest tube Port-A-Cath okay to be used for removal of chest tube per IR Right-sided central venous catheter may be removed prior to discharge MARCIN QUINN MD Jun 21, 2019 10:15
[2019-06-21 11:00] VITALS: BP 100/61
--- NOTE | 2019-06-21 12:00 | NUR ---
Wound care: Patient seen per wound care follow up. See wound assessment. Patient is well known to us from previous admissions. Patient has a stage IV to coccyx. RN changed dressing prior to wound care arrival. Dressing pulled back and wound assessed and dressing consisting of Aquacel Ag and foam is clean and dry. Wound appears stable. Dressing change instructions left in room. patient repositioned using wedge to right side. Bilateral heel medix. No other wounds noted. Call light in reach and bed lowered. Will follow patient regarding wound care.
--- NOTE | 2019-06-21 12:11 | RAD ---
CT-guided thoracostomy tube placement, left-sided 06/20/2019 Indication: Pneumothorax Discussion: The risks and benefits of the procedure, including but not limited to, bleeding and infection were discussed patient. Informed consent was obtained. The patient was brought to the CT scanner and placed in the supine position. A timeout procedure was performed. CT imaging of the patient demonstrates a left the anterior chest was prepped and draped using sterile barrier technique. 1% lidocaine was administered for local anesthesia. Under intermittent CT guidance a 5 Sammarinese Yueh needle was advanced into the pleural space. Air was aspirated. A guidewire was advanced to the pleural space over which following dilatation 8 Sammarinese pigtail drain was placed. Air was freely aspirated. Position was confirmed with CT. The catheter secured in place and sterile dressings applied. The catheter was connected to Pleur-evac device at -20 cm water. The procedure was performed under conscious sedation, including continuous cardiopulmonary monitoring via a dedicated sedation nurse. Face to face sedation time : 20 minutes Impression: CT-guided left thoracostomy tube placement PQRS Compliance Statement: One or more of the following individualized dose reduction techniques were utilized for this examination: 1. Automated exposure control 2. Adjustment of the mA and/or kV according to patient size 3. Use of iterative reconstruction technique
--- NOTE | 2019-06-21 12:18 | PN ---
DATE: 06/21/2019 SUBJECTIVE: The patient is resting, slightly propped up in bed, in no apparent respiratory distress. Awake, alert. Did complain of pain. Denied any shortness of breath. She apparently has eaten more than 50% of breakfast this morning. She has had a Port-A-Cath placed successfully. Unfortunately, post procedure developed pneumothorax, which required chest tube placement by interventional radiologist. PHYSICAL EXAMINATION: GENERAL: When I examined her this morning, she was pale, cachectic, but no jaundice, cyanosis or thyromegaly. No jugular venous distention. No limb edema. VITAL SIGNS: Her heart rate was 77, blood pressure was 108/67, temperature was 97.6, respiratory rate was 16, and oxygen saturation was 97%. HEAD, EYES, EARS, NOSE AND THROAT: Normocephalic, atraumatic. NECK: Supple. CARDIAC: Normal first and second heart sounds. No gallop or murmur. CHEST: Showed central trachea, equal bilateral expansion, air entry. ABDOMEN: Scaphoid, soft with suprapubic catheter in place. NEUROLOGIC: She is awake, alert, responding appropriately. All her cranial nerves intact. She has functional quadriplegia with neurogenic bladder requiring suprapubic catheter. She has large sacrococcygeal decubitus ulcer. Her intake was 750, output was 3300. LABORATORY DATA: As of yesterday, her BUN was 6, creatinine 0.4. Her hemoglobin was 10, hematocrit 31 with normal white cell count and platelets. ASSESSMENT: 1. Left-sided pneumothorax, status post chest tube placement. 2. She is status post Port-A-Cath placement successfully yesterday. Suprapubic catheter placement done successfully on Wednesday. 3. Severe sepsis, lactic acidosis and hypotension resolved. She is off Levophed. She has healthcare-associated pneumonia, urinary tract infection with growth of Klebsiella and Escherichia coli. 4. Chronic sacrococcygeal decubitus ulcer. 5. Progressive multiple sclerosis with functional quadriplegia and neurogenic bladder for which she underwent suprapubic catheter. History of Clostridium difficile colitis, history of methicillin-resisted Staphylococcus aureus, vancomycin-resistant Enterococcus as well as multidrug resistant. 6. Chronic obstructive pulmonary disease. 7. Factor V Leiden. PLAN: Continue obviously with chest tube to underwater seal for her left-sided pneumothorax. Continue with IV antibiotic, pain management. YOLI MEJIA MD DR: Clari JOB#: [id number] / [id number]
[2019-06-21 15:00] VITALS: BP 110/62
--- NOTE | 2019-06-21 15:52 | PDOC ---
PULMONARY PROGRESS NOTES Subjective NOT MORE SOA SOME PAIN AT SITE OF CENTRAL LINE Vitals Vital Signs Date Time Temp Pulse Resp B/P (MAP) Pulse Ox O2 Delivery O2 Flow Rate FiO2 06/21/19 15:47 Nasal Cannula 2.0 06/21/19 13:58 16 06/21/19 11:00 97.6 124 100/61 (74) 98 97.6 ROS: No Nausea General: Alert Lungs: Other (decrease bases,) Cardiovascular: S1, S2 Abdomen: Soft, Non-tender Neuro Exam: Alert Extremities: No Edema Skin: Warm, Dry (resp effort imporved somehwat after fluids.) Labs Laboratory Tests Test 06/20/19 06:20 06/20/19 14:06 White Blood Count 7.0 x10^3/uL (4.0-11.0) Red Blood Count 4.47 x10^6/uL (3.50-5.40) Hemoglobin 10.0 g/dL (12.0-15.5) Hematocrit 31.2 % (36.0-47.0) Mean Corpuscular Volume 70 fL (79-100) Mean Corpuscular Hemoglobin 22 pg (25-35) Mean Corpuscular Hemoglobin Concent 32 g/dL (31-37) Red Cell Distribution Width 19.5 % (11.5-14.5) Platelet Count 423 x10^3/uL (140-400) Sodium Level 142 mmol/L (136-145) Potassium Level 3.8 mmol/L (3.5-5.1) Chloride Level 108 mmol/L (98-107) Carbon Dioxide Level 28 mmol/L (21-32) Anion Gap 6 (6-14) Blood Urea Nitrogen 6 mg/dL (7-20) Creatinine 0.4 mg/dL (0.6-1.0) Estimated GFR (Cockcroft-Gault) 172.6 BUN/Creatinine Ratio 15 (6-20) Glucose Level 71 mg/dL (70-99) Calcium Level 8.4 mg/dL (8.5-10.1) Total Bilirubin 0.1 mg/dL (0.2-1.0) Aspartate Amino Transf (AST/SGOT) 8 U/L (15-37) Alanine Aminotransferase (ALT/SGPT) 10 U/L (14-59) Alkaline Phosphatase 35 U/L (46-116) Total Protein 5.9 g/dL (6.4-8.2) Albumin 2.4 g/dL (3.4-5.0) Albumin/Globulin Ratio 0.7 (1.0-1.7) Glucose (Fingerstick) 89 mg/dL (70-99) Medications Active Scripts Medications Dose Route/Sig Max Daily Dose Days Date Category Augmentin 875-125 Tablet (Amoxicillin/Potassium Clav) 1 Each Tablet 1 Tab PO BID 5 05/29/19 Rx Oxycodone HCl ER (Oxycodone HCl) 10 Mg Tab.er.12h 10 Mg PO BID 05/24/19 Reported Dantrolene Sodium 25 Mg Capsule 75 Mg PO QID 05/24/19 Reported Acidophilus (Lactobacillus Acidophilus) 1 Each Tab.chew 2 Each PO BID 05/24/19 Reported Thera Tablet (Multivitamin with Folic Acid) 400 Mcg Tablet 400 Mcg PO DAILY 05/24/19 Reported Sennosides 8.6 Mg Tablet 8.6 Mg PO DAILY 05/24/19 Reported Percocet 5-325 Mg Tablet (Oxycodone/Acetaminophen) 1 Each Tablet 1 Tab PO PRN Q4HRS PRN 05/24/19 Reported Potassium Chloride 20 Meq Tablet.er 40 Meq PO DAILY 12/30/18 Reported Oxybutynin Chloride 5 Mg Tablet 5 Mg PO TID 12/30/18 Reported Zofran (Ondansetron Hcl) 4 Mg Tablet 1 Tab PO PRN Q4HRS PRN 12/30/18 Reported NICODERM CQ 14mg (Nicotine) 1 Each Patch.td24 1 Patch TP DAILY 12/30/18 Reported Loratadine 10 Mg Tablet 1 Tab PO DAILY 12/30/18 Reported Duoneb 0.5-3(2.5) Mg/3 Ml (Albuterol/Ipratropium) 3 Ml Ampul.neb 3 Ml NEB TID 12/30/18 Reported Mucinex (Guaifenesin) 600 Mg Tablet.er 1 Tab PO BID 12/30/18 Reported Ferrous Sulfate 325 Mg Tablet 325 Mg PO DAILY 12/30/18 Reported Famotidine 20 Mg Tablet 20 Mg PO BID 12/30/18 Reported Cymbalta (Duloxetine Hcl) 30 Mg Capsule.dr 30 Mg PO DAILY 12/30/18 Reported Baclofen 20 Mg Tablet 20 Mg PO QID 12/30/18 Reported Eliquis (Apixaban) 5 Mg Tablet 5 Mg PO BID 12/30/18 Reported Alprazolam 0.5 Mg Tablet 1 Tab PO HS 12/30/18 Reported Tylenol (Acetaminophen) 325 Mg Tablet 650 Mg PO PRN Q4HRS PRN 12/30/18 Reported Impression . 1. Acute respiratory failure due to pneumonia, septic shock 2. Septic shock. resolved 3. Lactic acidosis secondary to sepsis. resolved 4. Pneumonia, gram-positive, gram-negative. 5. Pyuria. 6. Chronic sacrococcygeal pressure wounds, stage 4. 7. Progressive multiple sclerosis. 8. History of Clostridium difficile. 9. History of methicillin-resistant Staphylococcus aureus. 10.Tobacco dependence. 11. Factor V Leiden mutation.no PE/ DVT 12. Severe PCM 13. Low K, Mg, CORRECTED 14. MS 15. S/P CENTRAL LINE /PTX 06/11. BLOOD CULTURE Final GRAM POSITIVE COCCI IN CLUSTERS 2 SETS DRAWN, 1 OF 4 POSITIVE Plan . RESP STATUS IS COMPENSATED REPEAT CXR FOR PTX PER DR ARNETT DVT AND GI PROPH PARVEZ HERNANDEZ MD Jun 21, 2019 15:52
[2019-06-21] MEDS: ACETAMINOPHEN 325 MG TABLET. PO PRN (16:38)
--- NOTE | 2019-06-21 16:40 | RAD ---
EXAM: AP View of the chest DATE: 06/21/2019 3:00 PM INDICATION: Chest tube, waterseal COMPARISON: 06/21/2019, 06/20/2019 FINDINGS: Port-A-Cath is seen overlying the left chest tip projecting over the right atrium. Right IJ vascular catheter tip projects over the right atrium. Small volume mediastinal gas is stable. Left chest tube is in place. No left pneumothorax. Trace right pleural effusion. Emphysematous changes left lung. Patchy opacities right infrahilar lung and left lung base likely atelectasis. IMPRESSION: 1. Left chest tube without definite pneumothorax. 2. Support lines and tubes are stable. Electronically signed by: Moo Frederick MD (06/21/2019 4:38 PM) [facility]
[2019-06-21 19:35] VITALS: BP 99/71
[2019-06-21] MEDS: ALPRAZolam 0.5 MG TABLET PO SCH (21:32)
[2019-06-21 23:49] VITALS: BP 114/74
[2019-06-22] MEDS: PIPERACILLIN/TAZOBACTAM 3.375 GM in IV NORMAL SALINE 50ML 50 ML IV SCH ×2 (00:36→05:57)
[2019-06-22 03:29] VITALS: BP 137/70
[2019-06-22] MEDS: IV NORMAL SALINE 1000ML BAG 1,000 ML IV SCH ×2 (04:00→13:23)
[2019-06-22 06:23] LABS: ALBUMIN 2.5 g/dL (3.4-5.0); ALBUMIN/GLOBULIN RATIO 0.6 (1.0-1.7); CALCIUM 8.6 mg/dL (8.5-10.1); CREATININE 0.4 mg/dL (0.6-1.0); GFR 172.6; POTASSIUM 3.9 mmol/L (3.5-5.1); TOTAL BILIRUBIN 0.2 mg/dL (0.2-1.0); TOTAL PROTEIN 6.5 g/dL (6.4-8.2)
[2019-06-22 06:32] LABS: HEMATOCRIT 31.2 % (36.0-47.0); HEMOGLOBIN 9.9 g/dL (12.0-15.5); RED BLOOD COUNT 4.44 x10^6/uL (3.50-5.40); RED CELL DISTRIBUTION WIDTH 19.2 % (11.5-14.5); WHITE BLOOD COUNT 12.5 x10^3/uL (4.0-11.0)
[2019-06-22 07:00] VITALS: BP 135/78
[2019-06-22] MEDS: IPRATRPIUM/ALBUTEROL 0.5/2.5MG 3 ML NEBU. NEB SCH ×4 (07:32→19:54)
[2019-06-22] MEDS: FERROUS SULFATE 325 MG TABLET. PO SCH (08:41)
[2019-06-22] MEDS: CYCLOBENZAPRINE 10 MG TABLET. PO SCH ×3 (08:41→21:33)
[2019-06-22] MEDS: POTASSIUM CHLORIDE 20 MEQ TABLET.ER. PO SCH (08:42)
[2019-06-22] MEDS: DULoxetine HCL 30 MG CAPSULE.DR PO SCH (08:42)
[2019-06-22] MEDS: LACTOBACILLUS RHAMNOSUS GG 1 CAPSULE. PO SCH ×2 (08:42→21:33)
[2019-06-22] MEDS: MULTIVITAMIN with MINERAL TABLET. PO SCH (08:42)
[2019-06-22] MEDS: DANTROLENE SODIUM 25 MG CAPSULE PO SCH ×4 (08:42→21:33)
[2019-06-22] MEDS: OXYBUTYNIN CHLORIDE 5 MG TABLET PO SCH ×3 (08:42→21:33)
[2019-06-22] MEDS: FAMOTIDINE 20 MG TABLET. PO SCH ×2 (08:42→21:33)
[2019-06-22] MEDS: oxyCODONE/APAP 5/325 1 TAB TABLET PO PRN ×3 (08:44→21:34)
--- NOTE | 2019-06-22 08:45 | PDOC ---
Infectious Disease Note Subjective Subjective feeling good, no sob ROS ROS no n/v/d/sob Vital Sign Vital Signs Vital Signs Date Time Temp Pulse Resp B/P (MAP) Pulse Ox O2 Delivery O2 Flow Rate FiO2 06/22/19 07:33 95 Nasal Cannula 2.0 06/22/19 03:29 97.6 100 18 137/70 (92) 97.6 Physical Exam PHYSICAL EXAM GENERAL: Resting quietly, HEENT: Oropharynx dry, clear LUNGS: Clear to auscultation. HEART: S1 and S2. ABDOMEN: Soft and nontender with bowel sounds present. GENITOURINARY: Indwelling Shafer in place (8-5). EXTREMITIES: No gross edema or cyanosis. Contractures and muscle atrophy. + heel protectors SKIN: Warm to touch. No signs of rash. Sacrococcygeal wound- clean (pic reviewed) NEUROLOGIC: Arouses to name, answering questions appropriately. RIJ (06/13) without signs of complications Labs Lab Laboratory Tests Test 06/22/19 05:45 White Blood Count 12.5 x10^3/uL (4.0-11.0) Red Blood Count 4.44 x10^6/uL (3.50-5.40) Hemoglobin 9.9 g/dL (12.0-15.5) Hematocrit 31.2 % (36.0-47.0) Mean Corpuscular Volume 70 fL (79-100) Mean Corpuscular Hemoglobin 22 pg (25-35) Mean Corpuscular Hemoglobin Concent 32 g/dL (31-37) Red Cell Distribution Width 19.2 % (11.5-14.5) Platelet Count 373 x10^3/uL (140-400) Sodium Level 142 mmol/L (136-145) Potassium Level 3.9 mmol/L (3.5-5.1) Chloride Level 105 mmol/L (98-107) Carbon Dioxide Level 29 mmol/L (21-32) Anion Gap 8 (6-14) Blood Urea Nitrogen 5 mg/dL (7-20) Creatinine 0.4 mg/dL (0.6-1.0) Estimated GFR (Cockcroft-Gault) 172.6 BUN/Creatinine Ratio 13 (6-20) Glucose Level 80 mg/dL (70-99) Calcium Level 8.6 mg/dL (8.5-10.1) Total Bilirubin 0.2 mg/dL (0.2-1.0) Aspartate Amino Transf (AST/SGOT) 12 U/L (15-37) Alanine Aminotransferase (ALT/SGPT) 10 U/L (14-59) Alkaline Phosphatase 41 U/L (46-116) Total Protein 6.5 g/dL (6.4-8.2) Albumin 2.5 g/dL (3.4-5.0) Albumin/Globulin Ratio 0.6 (1.0-1.7) Micro URINE CULTURE Final Preliminary report Preliminary Report Preliminary report Final report URINE CULTURE RES 1 Final Gram negative rods Gram negative rods Greater than 100,000 colony forming units per mL Performing lab: [place] [address] Dir: ROCK Link MD Gram negative rods Greater than 100,000 colony forming units per mL Performing lab: [place] [address] Dir: ROCK Link MD Klebsiella pneumoniae Greater than 100,000 colony forming units per mL Performed at: [place] [id number] Rn Neurology: ROCK Link MD, Phone: [phone] Greater than 100,000 colony forming units per mL Multi-Drug Resistant Organism Susceptibility profile is consistent with a probable ESBL. URINE CULTURE RES 2 Final Escherichia coli Greater than 100,000 colony forming units per mL Performed at: [place] [id number] Rn Neurology: ROCK Link MD, Phone: [phone] Greater than 100,000 colony forming units per mL Cefazolin <=4 ug/mL Objective Assessment BC + GPC (1 of 4 bottles), 06/11. CoNS likely contaminate Sepsis with lactic acidosis and hypotension, off vasopressor support - clinically improving HCAP Pyuria. Shafer chg 06/12. E. coli and Klebsiella Leukocytosis - improved Chronic sacrococcygeal pressure wound MS h/x C. diff colitis 12/2018 h/o MRSA, VRE and MDR infections h/o E. coli in urine Pneumothorax, improved Plan Plan of Care d/c Zosyn Maintain aspiration precautions Wound team following Offloading Port-A-Cath done, pneumothorax, s/p chest tube placement,, should be removed today d/c cv line ok to d/c D/w nurse ROSEMARY THOMAS MD Jun 22, 2019 08:45
[2019-06-22] MEDS: NYSTATIN 100,000 UNITS/ML 5 ML ORAL.SUSP. SWSW SCH ×5 (09:00→21:33)
--- NOTE | 2019-06-22 09:28 | PDOC ---
ZEYNEP AJ PRESENTATION DESIGNER 06/22/19 0928: SUBJECTIVE Subjective Patient is not having any pain from SP tube. OBJECTIVE Objective Physical Exam: General appearance: Alert and Oriented Head: Normocephalic, without obvious abnormality Eyes: conjunctivae/corneas clear. PERRL, EOM's intact. Fundi benign Lungs: Regular respirations, non labored breathing Abdomen: soft, non-tender.+ SP tube in place draining clear yellow urine. Dressing in place with sero-sanguinous drainage. Pelvic: SP tube in place draining clear yellow urine. Extremities: extremities severely contracted. Vital Signs Vital Signs Date Time Temp Pulse Resp B/P (MAP) Pulse Ox O2 Delivery O2 Flow Rate FiO2 06/22/19 08:46 Nasal Cannula 2.0 06/22/19 07:33 95 Nasal Cannula 2.0 06/22/19 07:00 97.7 106 18 135/78 (97) 100 Nasal Cannula 2.0 97.7 06/22/19 03:29 97.6 100 18 137/70 (92) 93 Nasal Cannula 2.0 97.6 06/21/19 23:49 97.5 124 18 114/74 (87) 97 Nasal Cannula 2.0 97.5 06/21/19 20:44 99 Venturi Mask 1.0 06/21/19 20:26 Nasal Cannula 1.0 06/21/19 20:00 Nasal Cannula 2.0 06/21/19 19:35 98.7 112 18 99/71 (80) 99 Nasal Cannula 2.0 98.7 06/21/19 18:10 Nasal Cannula 06/21/19 16:01 95 Nasal Cannula 2.0 06/21/19 15:47 Nasal Cannula 2.0 06/21/19 15:00 98.4 129 16 110/62 (78) 95 Nasal Cannula 2.0 98.4 06/21/19 13:58 16 Nasal Cannula 2.0 06/21/19 12:46 18 Room Air 06/21/19 12:40 Nasal Cannula 2.0 06/21/19 11:00 97.6 124 18 100/61 (74) 98 Nasal Cannula 2.0 97.6 I & O Intake and Output 06/22/19 06:59 Intake Total 1830 ml Output Total 3950 ml Balance -2120 ml Intake Oral 750 ml IV Total 1080 ml Output Urine Total 3950 ml PHYSICAL EXAM Physical Exam Physical Exam: General appearance: Alert and Oriented Head: Normocephalic, without obvious abnormality Eyes: conjunctivae/corneas clear. PERRL, EOM's intact. Fundi benign Lungs: Regular respirations, non labored breathing Abdomen: soft, non-tender.+ SP tube in place draining clear yellow urine. Dressing in place with sero-sanguinous drainage. Pelvic: SP tube in place draining clear yellow urine. Extremities: extremities severely contracted. ASSESSMENT/PLAN Assessment/Plan Wound care consult entered for patient's SP tubing. Tube is placed low and appreciate input from team regarding recommendations for infection prevention Discussed with RN to please get in touch with social work regarding follow up appointment at for patient. [facility] [place] to care for patient. Will check on patient tomorrow. COMMENT Lab Laboratory Tests Test 06/22/19 05:45 White Blood Count 12.5 x10^3/uL (4.0-11.0) Red Blood Count 4.44 x10^6/uL (3.50-5.40) Hemoglobin 9.9 g/dL (12.0-15.5) Hematocrit 31.2 % (36.0-47.0) Mean Corpuscular Volume 70 fL (79-100) Mean Corpuscular Hemoglobin 22 pg (25-35) Mean Corpuscular Hemoglobin Concent 32 g/dL (31-37) Red Cell Distribution Width 19.2 % (11.5-14.5) Platelet Count 373 x10^3/uL (140-400) Sodium Level 142 mmol/L (136-145) Potassium Level 3.9 mmol/L (3.5-5.1) Chloride Level 105 mmol/L (98-107) Carbon Dioxide Level 29 mmol/L (21-32) Anion Gap 8 (6-14) Blood Urea Nitrogen 5 mg/dL (7-20) Creatinine 0.4 mg/dL (0.6-1.0) Estimated GFR (Cockcroft-Gault) 172.6 BUN/Creatinine Ratio 13 (6-20) Glucose Level 80 mg/dL (70-99) Calcium Level 8.6 mg/dL (8.5-10.1) Total Bilirubin 0.2 mg/dL (0.2-1.0) Aspartate Amino Transf (AST/SGOT) 12 U/L (15-37) Alanine Aminotransferase (ALT/SGPT) 10 U/L (14-59) Alkaline Phosphatase 41 U/L (46-116) Total Protein 6.5 g/dL (6.4-8.2) Albumin 2.5 g/dL (3.4-5.0) Albumin/Globulin Ratio 0.6 (1.0-1.7) MARC GILLIAM MD 06/22/19 1426: ASSESSMENT/PLAN Assessment/Plan Agree with assessment and plan. ZEYNEP AJ APRN Jun 22, 2019 09:28 MARC GILLIAM MD Jun 22, 2019 14:26
--- NOTE | 2019-06-22 09:30 | NUR ---
VERENA & DEVONTE gave CHG bath as best as possible. Patient wanting to sleep & is unable to tolerate much movement due to pain/MS/contractures. Addendum: 06/22/19 at 1058 by ELIZABETH CLARK RN Amended: Links added.
[2019-06-22 11:00] VITALS: BP 145/83
--- NOTE | 2019-06-22 11:33 | PDOC ---
PULMONARY PROGRESS NOTES Subjective NOT MORE SOA SOME PAIN AT SITE OF CENTRAL LINE Vitals Vital Signs Date Time Temp Pulse Resp B/P (MAP) Pulse Ox O2 Delivery O2 Flow Rate FiO2 06/22/19 11:03 95 Nasal Cannula 2.0 06/22/19 11:00 97.7 105 18 145/83 (103) 97.7 ROS: No Nausea General: Alert Lungs: Other (decrease bases,) Cardiovascular: S1, S2 Abdomen: Soft, Non-tender Neuro Exam: Alert Extremities: No Edema Skin: Warm, Dry (resp effort imporved somehwat after fluids.) Labs Laboratory Tests Test 06/20/19 14:06 06/22/19 05:45 Glucose (Fingerstick) 89 mg/dL (70-99) White Blood Count 12.5 x10^3/uL (4.0-11.0) Red Blood Count 4.44 x10^6/uL (3.50-5.40) Hemoglobin 9.9 g/dL (12.0-15.5) Hematocrit 31.2 % (36.0-47.0) Mean Corpuscular Volume 70 fL (79-100) Mean Corpuscular Hemoglobin 22 pg (25-35) Mean Corpuscular Hemoglobin Concent 32 g/dL (31-37) Red Cell Distribution Width 19.2 % (11.5-14.5) Platelet Count 373 x10^3/uL (140-400) Sodium Level 142 mmol/L (136-145) Potassium Level 3.9 mmol/L (3.5-5.1) Chloride Level 105 mmol/L (98-107) Carbon Dioxide Level 29 mmol/L (21-32) Anion Gap 8 (6-14) Blood Urea Nitrogen 5 mg/dL (7-20) Creatinine 0.4 mg/dL (0.6-1.0) Estimated GFR (Cockcroft-Gault) 172.6 BUN/Creatinine Ratio 13 (6-20) Glucose Level 80 mg/dL (70-99) Calcium Level 8.6 mg/dL (8.5-10.1) Total Bilirubin 0.2 mg/dL (0.2-1.0) Aspartate Amino Transf (AST/SGOT) 12 U/L (15-37) Alanine Aminotransferase (ALT/SGPT) 10 U/L (14-59) Alkaline Phosphatase 41 U/L (46-116) Total Protein 6.5 g/dL (6.4-8.2) Albumin 2.5 g/dL (3.4-5.0) Albumin/Globulin Ratio 0.6 (1.0-1.7) Laboratory Tests Test 06/22/19 05:45 White Blood Count 12.5 x10^3/uL (4.0-11.0) Red Blood Count 4.44 x10^6/uL (3.50-5.40) Hemoglobin 9.9 g/dL (12.0-15.5) Hematocrit 31.2 % (36.0-47.0) Mean Corpuscular Volume 70 fL (79-100) Mean Corpuscular Hemoglobin 22 pg (25-35) Mean Corpuscular Hemoglobin Concent 32 g/dL (31-37) Red Cell Distribution Width 19.2 % (11.5-14.5) Platelet Count 373 x10^3/uL (140-400) Sodium Level 142 mmol/L (136-145) Potassium Level 3.9 mmol/L (3.5-5.1) Chloride Level 105 mmol/L (98-107) Carbon Dioxide Level 29 mmol/L (21-32) Anion Gap 8 (6-14) Blood Urea Nitrogen 5 mg/dL (7-20) Creatinine 0.4 mg/dL (0.6-1.0) Estimated GFR (Cockcroft-Gault) 172.6 BUN/Creatinine Ratio 13 (6-20) Glucose Level 80 mg/dL (70-99) Calcium Level 8.6 mg/dL (8.5-10.1) Total Bilirubin 0.2 mg/dL (0.2-1.0) Aspartate Amino Transf (AST/SGOT) 12 U/L (15-37) Alanine Aminotransferase (ALT/SGPT) 10 U/L (14-59) Alkaline Phosphatase 41 U/L (46-116) Total Protein 6.5 g/dL (6.4-8.2) Albumin 2.5 g/dL (3.4-5.0) Albumin/Globulin Ratio 0.6 (1.0-1.7) Medications Active Scripts Medications Dose Route/Sig Max Daily Dose Days Date Category Augmentin 875-125 Tablet (Amoxicillin/Potassium Clav) 1 Each Tablet 1 Tab PO BID 5 05/29/19 Rx Oxycodone HCl ER (Oxycodone HCl) 10 Mg Tab.er.12h 10 Mg PO BID 05/24/19 Reported Dantrolene Sodium 25 Mg Capsule 75 Mg PO QID 05/24/19 Reported Acidophilus (Lactobacillus Acidophilus) 1 Each Tab.chew 2 Each PO BID 05/24/19 Reported Thera Tablet (Multivitamin with Folic Acid) 400 Mcg Tablet 400 Mcg PO DAILY 05/24/19 Reported Sennosides 8.6 Mg Tablet 8.6 Mg PO DAILY 05/24/19 Reported Percocet 5-325 Mg Tablet (Oxycodone/Acetaminophen) 1 Each Tablet 1 Tab PO PRN Q4HRS PRN 05/24/19 Reported Potassium Chloride 20 Meq Tablet.er 40 Meq PO DAILY 12/30/18 Reported Oxybutynin Chloride 5 Mg Tablet 5 Mg PO TID 12/30/18 Reported Zofran (Ondansetron Hcl) 4 Mg Tablet 1 Tab PO PRN Q4HRS PRN 12/30/18 Reported NICODERM CQ 14mg (Nicotine) 1 Each Patch.td24 1 Patch TP DAILY 12/30/18 Reported Loratadine 10 Mg Tablet 1 Tab PO DAILY 12/30/18 Reported Duoneb 0.5-3(2.5) Mg/3 Ml (Albuterol/Ipratropium) 3 Ml Ampul.neb 3 Ml NEB TID 12/30/18 Reported Mucinex (Guaifenesin) 600 Mg Tablet.er 1 Tab PO BID 12/30/18 Reported Ferrous Sulfate 325 Mg Tablet 325 Mg PO DAILY 12/30/18 Reported Famotidine 20 Mg Tablet 20 Mg PO BID 12/30/18 Reported Cymbalta (Duloxetine Hcl) 30 Mg Capsule.dr 30 Mg PO DAILY 12/30/18 Reported Baclofen 20 Mg Tablet 20 Mg PO QID 12/30/18 Reported Eliquis (Apixaban) 5 Mg Tablet 5 Mg PO BID 12/30/18 Reported Alprazolam 0.5 Mg Tablet 1 Tab PO HS 12/30/18 Reported Tylenol (Acetaminophen) 325 Mg Tablet 650 Mg PO PRN Q4HRS PRN 12/30/18 Reported Impression . 1. Acute respiratory failure due to pneumonia, septic shock 2. Septic shock. resolved 3. Lactic acidosis secondary to sepsis. resolved 4. Pneumonia, gram-positive, gram-negative. 5. Pyuria. 6. Chronic sacrococcygeal pressure wounds, stage 4. 7. Progressive multiple sclerosis. 8. History of Clostridium difficile. 9. History of methicillin-resistant Staphylococcus aureus. 10.Tobacco dependence. 11. Factor V Leiden mutation.no PE/ DVT 12. Severe PCM 13. Low K, Mg, CORRECTED 14. MS 15. S/P CENTRAL LINE /PTX 06/11. BLOOD CULTURE Final GRAM POSITIVE COCCI IN CLUSTERS 2 SETS DRAWN, 1 OF 4 POSITIVE Plan . RESP STATUS IS COMPENSATED REPEAT CXR FOR PTX PER DR ARNETT DVT AND GI PROPH PARVEZ HERNANDEZ MD Jun 22, 2019 11:33
--- NOTE | 2019-06-22 11:56 | PDOC ---
SURGICAL PROGRESS NOTE Subjective resting no current complaints no soa Vital Signs Vital Signs Date Time Temp Pulse Resp B/P (MAP) Pulse Ox O2 Delivery O2 Flow Rate FiO2 06/22/19 11:03 95 Nasal Cannula 2.0 06/22/19 11:00 97.7 105 18 145/83 (103) 97.7 I&O Intake and Output 06/22/19 06:59 Intake Total 1830 ml Output Total 3950 ml Balance -2120 ml Intake Oral 750 ml IV Total 1080 ml Output Urine Total 3950 ml General: Cooperative, No acute distress Skin: Other (port a cath site clean) Labs Laboratory Tests Test 06/20/19 14:06 06/22/19 05:45 Glucose (Fingerstick) 89 mg/dL (70-99) White Blood Count 12.5 x10^3/uL (4.0-11.0) Red Blood Count 4.44 x10^6/uL (3.50-5.40) Hemoglobin 9.9 g/dL (12.0-15.5) Hematocrit 31.2 % (36.0-47.0) Mean Corpuscular Volume 70 fL (79-100) Mean Corpuscular Hemoglobin 22 pg (25-35) Mean Corpuscular Hemoglobin Concent 32 g/dL (31-37) Red Cell Distribution Width 19.2 % (11.5-14.5) Platelet Count 373 x10^3/uL (140-400) Sodium Level 142 mmol/L (136-145) Potassium Level 3.9 mmol/L (3.5-5.1) Chloride Level 105 mmol/L (98-107) Carbon Dioxide Level 29 mmol/L (21-32) Anion Gap 8 (6-14) Blood Urea Nitrogen 5 mg/dL (7-20) Creatinine 0.4 mg/dL (0.6-1.0) Estimated GFR (Cockcroft-Gault) 172.6 BUN/Creatinine Ratio 13 (6-20) Glucose Level 80 mg/dL (70-99) Calcium Level 8.6 mg/dL (8.5-10.1) Total Bilirubin 0.2 mg/dL (0.2-1.0) Aspartate Amino Transf (AST/SGOT) 12 U/L (15-37) Alanine Aminotransferase (ALT/SGPT) 10 U/L (14-59) Alkaline Phosphatase 41 U/L (46-116) Total Protein 6.5 g/dL (6.4-8.2) Albumin 2.5 g/dL (3.4-5.0) Albumin/Globulin Ratio 0.6 (1.0-1.7) Laboratory Tests Test 06/22/19 05:45 White Blood Count 12.5 x10^3/uL (4.0-11.0) Red Blood Count 4.44 x10^6/uL (3.50-5.40) Hemoglobin 9.9 g/dL (12.0-15.5) Hematocrit 31.2 % (36.0-47.0) Mean Corpuscular Volume 70 fL (79-100) Mean Corpuscular Hemoglobin 22 pg (25-35) Mean Corpuscular Hemoglobin Concent 32 g/dL (31-37) Red Cell Distribution Width 19.2 % (11.5-14.5) Platelet Count 373 x10^3/uL (140-400) Sodium Level 142 mmol/L (136-145) Potassium Level 3.9 mmol/L (3.5-5.1) Chloride Level 105 mmol/L (98-107) Carbon Dioxide Level 29 mmol/L (21-32) Anion Gap 8 (6-14) Blood Urea Nitrogen 5 mg/dL (7-20) Creatinine 0.4 mg/dL (0.6-1.0) Estimated GFR (Cockcroft-Gault) 172.6 BUN/Creatinine Ratio 13 (6-20) Glucose Level 80 mg/dL (70-99) Calcium Level 8.6 mg/dL (8.5-10.1) Total Bilirubin 0.2 mg/dL (0.2-1.0) Aspartate Amino Transf (AST/SGOT) 12 U/L (15-37) Alanine Aminotransferase (ALT/SGPT) 10 U/L (14-59) Alkaline Phosphatase 41 U/L (46-116) Total Protein 6.5 g/dL (6.4-8.2) Albumin 2.5 g/dL (3.4-5.0) Albumin/Globulin Ratio 0.6 (1.0-1.7) Problem List Problems Medical Problems: (1) Acute respiratory failure Status: Acute (2) HCAP (healthcare-associated pneumonia) Status: Acute (3) Hypokalemia Status: Acute (4) Hypomagnesemia Status: Acute (5) Multiple sclerosis, primary progressive Status: Chronic (6) Pyuria Status: Acute (7) Sepsis Status: Acute (8) Septic shock Status: Acute (9) Severe protein-calorie malnutrition Status: Chronic Assessment/Plan Chest tube as per radiology JANNET SCHMIDT APRN Jun 22, 2019 11:56
--- NOTE | 2019-06-22 13:08 | NUR ---
Wound care: Patient seen per wound care consult for suprapubic catheter site and managing skin breakdown around the wound. Area cleansed with chloraprep and skin prep applied and then covered with an Aquacel foam for more protection. A stat lock was also applied to anterior left thigh. Bed lowered and call light in reach.
[2019-06-22 15:00] VITALS: BP 142/87
--- NOTE | 2019-06-22 17:11 | RAD ---
CHEST AP ONLY Clinical indications: Chest tube clamped at 3:00 PM. COMPARISON: June 21, 2019. Findings: There has been no change in lines or left-sided chest tube. No pneumothorax is seen. Increase in left lung base atelectasis is seen. Elevation of the right hemidiaphragm and associated right lung base atelectasis is unchanged. No pleural effusion is evident. Heart size and mediastinum are stable. IMPRESSION: No pneumothorax. Increase in left lung base atelectasis. Electronically signed by: Angel Grey MD (06/22/2019 5:08 PM) [place] [id number]
--- NOTE | 2019-06-22 18:45 | PN ---
DATE: 06/22/2019 SUBJECTIVE: The patient is resting, slightly propped up in bed, no apparent distress. Her chest tube is clamped. The plan is to repeat her chest x-ray and if the lung has completely expanded, chest tube will be removed. On questioning her, she denied any complaint. PHYSICAL EXAMINATION: GENERAL: When I examined her, she looked pale, cachectic, but no jaundice, cyanosis or thyromegaly. No jugular venous distention. No lower limb edema. VITAL SIGNS: Her heart rate was 105, blood pressures 145/83, temperature was 97.7, respiratory rate was 18 and oxygen saturation was 95% on 2 liters of oxygen. HEAD, EYES, EARS, NOSE AND THROAT: Showed normocephalic, atraumatic. NECK: Supple. HEART: Showed normal first and second heart sounds. No gallop, rub or murmur. CHEST: Clear to auscultation. No crepitation or rhonchi. ABDOMEN: Distended, soft, nontender. No guarding or rigidity. No organomegaly. All hernial orifices intact. Bowel sounds normal. NEUROLOGIC: She is awake, alert. She is sleepy, but arousable. All cranial nerves intact. She has functional quadriplegia with neurogenic bladder requiring suprapubic catheter. SKIN: She has large sacrococcygeal decubitus ulcer. Her intake over the last 24 hours was 2300, output was 2618. LABORATORY DATA: As of this morning, her white cell count was 12,500, hemoglobin 10, hematocrit 31, MCV 70 and platelet count 373,000. Her chemistry showed a serum sodium 142, potassium 3.9, chloride 105, bicarbonate 29, anion gap of 8, BUN 5, creatinine 0.4, estimated GFR was 72 mL per minute. Her glucose was 80, calcium was 8.6. Total bilirubin, AST, ALT, alkaline phosphatase were normal. Total protein 6.5, albumin 2.5. ASSESSMENT: 1. Left side pneumothorax, status post chest tube placement. 2. She is status post Port-A-Cath placement successfully done with suprapubic catheter placement done successfully on Wednesday. 3. Severe sepsis with lactic acidosis and hypotension, resolved. She is off Levophed. 4. She has healthcare-associated pneumonia and urinary tract infection with growth of Klebsiella and Escherichia coli. 5. Chronic sacrococcygeal decubitus ulcer. 6. Progressive multiple sclerosis, functional quadriplegia and neurogenic bladder, for which she underwent suprapubic catheter. 7. History of Clostridium difficile colitis, methicillin-resistant Staphylococcus aureus, vancomycin-resistant Enterococcus as well as multidrug resistant. 8. Chronic obstructive pulmonary disease. 9. Factor V Leiden. PLAN: To continue with heparin. Her chest tube is clamped. She continued her antibiotic. We will continue with all her other medications and if everything is stable and her lung has completely expanded, she will be discharged back to [place] tomorrow. YOLI MEJIA MD DR: JUJU/ronit JOB#: [id number] / [id number]
--- NOTE | 2019-06-22 18:53 | NUR ---
Dr. Taylor called this morning around 1130 & wanted patient's chest tube clamped which was done, chest xray ordered & taken. Dr. Taylor stated if no pneumothorax, he might remove the chest tube but never came to do that. Dr. Taylor's associate Dr. Mendoza contacted at 1855 & aware of this. Dr. Mendoza stated to leave it clamped until the morning, get chest xray in morning, & possibly remove it in the morning.
[2019-06-22 19:00] VITALS: BP 135/82
[2019-06-22] MEDS: ALPRAZolam 0.5 MG TABLET PO SCH (21:33)
[2019-06-22 23:00] VITALS: BP 128/76
[2019-06-23 03:00] VITALS: BP 117/66
[2019-06-23] MEDS: oxyCODONE/APAP 5/325 1 TAB TABLET PO PRN ×2 (04:27→11:47)
[2019-06-23] MEDS: IV NORMAL SALINE 1000ML BAG 1,000 ML IV SCH ×3 (04:37→20:42)
[2019-06-23 07:00] VITALS: BP 122/75
[2019-06-23] MEDS ORDERED: IPRATRPIUM/ALBUTEROL 0.5/2.5MG 3 ML NEBU. ONE (07:07)
[2019-06-23] MEDS: IPRATRPIUM/ALBUTEROL 0.5/2.5MG 3 ML NEBU. NEB SCH ×5 (08:00→19:58)
[2019-06-23] MEDS: DULoxetine HCL 30 MG CAPSULE.DR PO SCH (08:22)
[2019-06-23] MEDS: MULTIVITAMIN with MINERAL TABLET. PO SCH (08:22)
[2019-06-23] MEDS: OXYBUTYNIN CHLORIDE 5 MG TABLET PO SCH ×3 (08:22→20:41)
[2019-06-23] MEDS: FAMOTIDINE 20 MG TABLET. PO SCH ×2 (08:22→20:41)
[2019-06-23] MEDS: CYCLOBENZAPRINE 10 MG TABLET. PO SCH ×3 (08:22→20:41)
[2019-06-23] MEDS: LACTOBACILLUS RHAMNOSUS GG 1 CAPSULE. PO SCH ×2 (08:22→20:41)
[2019-06-23] MEDS: FERROUS SULFATE 325 MG TABLET. PO SCH (08:22)
[2019-06-23] MEDS: NYSTATIN 100,000 UNITS/ML 5 ML ORAL.SUSP. SWSW SCH ×5 (08:23→20:41)
[2019-06-23] MEDS: DANTROLENE SODIUM 25 MG CAPSULE PO SCH ×4 (08:23→20:41)
[2019-06-23] MEDS: POTASSIUM CHLORIDE 20 MEQ TABLET.ER. PO SCH (08:23)
--- NOTE | 2019-06-23 08:52 | PDOC ---
PULMONARY PROGRESS NOTES Subjective NOT MORE SOA Vitals Vital Signs Date Time Temp Pulse Resp B/P (MAP) Pulse Ox O2 Delivery O2 Flow Rate FiO2 06/23/19 07:00 97.6 93 18 122/75 (91) 96 Nasal Cannula 2.0 97.6 ROS: No Nausea General: Alert Lungs: Other (decrease bases,) Cardiovascular: S1, S2 Abdomen: Soft, Non-tender Neuro Exam: Alert Extremities: No Edema Skin: Warm, Dry (resp effort imporved somehwat after fluids.) Labs Laboratory Tests Test 06/22/19 05:45 White Blood Count 12.5 x10^3/uL (4.0-11.0) Red Blood Count 4.44 x10^6/uL (3.50-5.40) Hemoglobin 9.9 g/dL (12.0-15.5) Hematocrit 31.2 % (36.0-47.0) Mean Corpuscular Volume 70 fL (79-100) Mean Corpuscular Hemoglobin 22 pg (25-35) Mean Corpuscular Hemoglobin Concent 32 g/dL (31-37) Red Cell Distribution Width 19.2 % (11.5-14.5) Platelet Count 373 x10^3/uL (140-400) Sodium Level 142 mmol/L (136-145) Potassium Level 3.9 mmol/L (3.5-5.1) Chloride Level 105 mmol/L (98-107) Carbon Dioxide Level 29 mmol/L (21-32) Anion Gap 8 (6-14) Blood Urea Nitrogen 5 mg/dL (7-20) Creatinine 0.4 mg/dL (0.6-1.0) Estimated GFR (Cockcroft-Gault) 172.6 BUN/Creatinine Ratio 13 (6-20) Glucose Level 80 mg/dL (70-99) Calcium Level 8.6 mg/dL (8.5-10.1) Total Bilirubin 0.2 mg/dL (0.2-1.0) Aspartate Amino Transf (AST/SGOT) 12 U/L (15-37) Alanine Aminotransferase (ALT/SGPT) 10 U/L (14-59) Alkaline Phosphatase 41 U/L (46-116) Total Protein 6.5 g/dL (6.4-8.2) Albumin 2.5 g/dL (3.4-5.0) Albumin/Globulin Ratio 0.6 (1.0-1.7) Medications Active Scripts Medications Dose Route/Sig Max Daily Dose Days Date Category Augmentin 875-125 Tablet (Amoxicillin/Potassium Clav) 1 Each Tablet 1 Tab PO BID 5 05/29/19 Rx Oxycodone HCl ER (Oxycodone HCl) 10 Mg Tab.er.12h 10 Mg PO BID 05/24/19 Reported Dantrolene Sodium 25 Mg Capsule 75 Mg PO QID 05/24/19 Reported Acidophilus (Lactobacillus Acidophilus) 1 Each Tab.chew 2 Each PO BID 05/24/19 Reported Thera Tablet (Multivitamin with Folic Acid) 400 Mcg Tablet 400 Mcg PO DAILY 05/24/19 Reported Sennosides 8.6 Mg Tablet 8.6 Mg PO DAILY 05/24/19 Reported Percocet 5-325 Mg Tablet (Oxycodone/Acetaminophen) 1 Each Tablet 1 Tab PO PRN Q4HRS PRN 05/24/19 Reported Potassium Chloride 20 Meq Tablet.er 40 Meq PO DAILY 12/30/18 Reported Oxybutynin Chloride 5 Mg Tablet 5 Mg PO TID 12/30/18 Reported Zofran (Ondansetron Hcl) 4 Mg Tablet 1 Tab PO PRN Q4HRS PRN 12/30/18 Reported NICODERM CQ 14mg (Nicotine) 1 Each Patch.td24 1 Patch TP DAILY 12/30/18 Reported Loratadine 10 Mg Tablet 1 Tab PO DAILY 12/30/18 Reported Duoneb 0.5-3(2.5) Mg/3 Ml (Albuterol/Ipratropium) 3 Ml Ampul.neb 3 Ml NEB TID 12/30/18 Reported Mucinex (Guaifenesin) 600 Mg Tablet.er 1 Tab PO BID 12/30/18 Reported Ferrous Sulfate 325 Mg Tablet 325 Mg PO DAILY 12/30/18 Reported Famotidine 20 Mg Tablet 20 Mg PO BID 12/30/18 Reported Cymbalta (Duloxetine Hcl) 30 Mg Capsule.dr 30 Mg PO DAILY 12/30/18 Reported Baclofen 20 Mg Tablet 20 Mg PO QID 12/30/18 Reported Eliquis (Apixaban) 5 Mg Tablet 5 Mg PO BID 12/30/18 Reported Alprazolam 0.5 Mg Tablet 1 Tab PO HS 12/30/18 Reported Tylenol (Acetaminophen) 325 Mg Tablet 650 Mg PO PRN Q4HRS PRN 12/30/18 Reported Impression . 1. Acute respiratory failure due to pneumonia, septic shock 2. Septic shock. resolved 3. Lactic acidosis secondary to sepsis. resolved 4. Pneumonia, gram-positive, gram-negative. 5. Pyuria. 6. Chronic sacrococcygeal pressure wounds, stage 4. 7. Progressive multiple sclerosis. 8. History of Clostridium difficile. 9. History of methicillin-resistant Staphylococcus aureus. 10.Tobacco dependence. 11. Factor V Leiden mutation.no PE/ DVT 12. Severe PCM 13. Low K, Mg, CORRECTED 14. MS 15. S/P CENTRAL LINE /PTX 06/11. BLOOD CULTURE Final GRAM POSITIVE COCCI IN CLUSTERS 2 SETS DRAWN, 1 OF 4 POSITIVE Plan . RESP STATUS IS COMPENSATED NO PTX ON CHEST XRAY CHEST TUBE REMOVED DVT AND GI PROPH PARVEZ HERNANDEZ MD Jun 23, 2019 08:52
--- NOTE | 2019-06-23 09:09 | PDOC ---
ZEYNEP AJ REMOTE CONTROL ASSEMBLER 06/23/19 0909: SUBJECTIVE Subjective Pt reports no pain with SP tube today OBJECTIVE Objective Physical Exam: General appearance: Alert and Oriented Head: Normocephalic, without obvious abnormality Eyes: conjunctivae/corneas clear. PERRL, EOM's intact Lungs: regular respirations, non-labored breathing Abdomen: soft, non-tender. Bowel sounds normal. No masses, no organomegaly Pelvic: SP tube in place, draining clear yellow urine. Dressing over site. Extremities: severe BLE contractures Vital Signs Vital Signs Date Time Temp Pulse Resp B/P (MAP) Pulse Ox O2 Delivery O2 Flow Rate FiO2 06/23/19 07:00 97.6 93 18 122/75 (91) 96 Nasal Cannula 2.0 97.6 06/23/19 03:00 98.0 80 18 117/66 (83) 98 Nasal Cannula 2.0 98.0 06/22/19 23:00 98.0 108 18 128/76 (93) 98 Nasal Cannula 2.0 98.0 06/22/19 20:00 Nasal Cannula 2.0 06/22/19 19:55 94 Nasal Cannula 2.0 06/22/19 19:00 97.6 115 18 135/82 (99) 99 Nasal Cannula 2.0 97.6 06/22/19 18:15 Nasal Cannula 2.0 06/22/19 16:12 94 Nasal Cannula 2.0 06/22/19 15:53 Nasal Cannula 2.0 06/22/19 15:35 Nasal Cannula 2.0 06/22/19 15:00 98.4 102 18 142/87 (105) 98 Nasal Cannula 2.0 98.4 06/22/19 11:03 95 Nasal Cannula 2.0 06/22/19 11:00 97.7 105 18 145/83 (103) 96 Nasal Cannula 2.0 97.7 I & O Intake and Output 06/23/19 07:00 Intake Total 1700 ml Output Total 2750 ml Balance -1050 ml Intake Oral 700 ml IV Total 1000 ml Output Urine Total 2750 ml PHYSICAL EXAM Physical Exam Physical Exam: General appearance: Alert and Oriented Head: Normocephalic, without obvious abnormality Eyes: conjunctivae/corneas clear. PERRL, EOM's intact Lungs: regular respirations, non-labored breathing Abdomen: soft, non-tender. Bowel sounds normal. No masses, no organomegaly Pelvic: SP tube in place, draining clear yellow urine. Dressing over site. Extremities: severe BLE contractures ASSESSMENT/PLAN Assessment/Plan Social work has seen patient on 06/21 and is responding to need to patient to be seen at for follow up of her SP tube changes: "SW following pt. Pt moved from [facility] and is LTC resident at [facility]. SW notified Segun at [facility] to set up follow up appointment at urology a month after 06/19/19 for SP tube change." as [facility] does not have lift capabilities. Wound care also seeing patient for SP tube wound on 06/22: "Patient seen per wound care consult for suprapubic catheter site and managing skin breakdown around the wound. Area cleansed with chloraprep and skin prep applied and then covered with an Aquacel foam for more protection. A stat lock was also applied to anterior left thigh. Bed lowered and call light in reach." Will sign off at this time. Please call with any questions. MARC GILLIAM MD 06/24/19 1308: ASSESSMENT/PLAN Assessment/Plan Agree with assessment and plan. ZEYNEP AJ APRN Jun 23, 2019 09:09 MARC GILLIAM MD Jun 24, 2019 13:08
--- NOTE | 2019-06-23 09:56 | PN ---
DATE: 06/23/2019 SUBJECTIVE: The patient is resting, slightly propped up in bed, sleeping comfortably. On questioning her, she stated that she did not sleep well last night as she has discomfort at the site of the chest tube. It was clamped yesterday. The chest x-ray showed that the lung has completely expanded. There is no pneumothorax. The patient otherwise denied any chest pain or shortness of breath. OBJECTIVE: GENERAL: When I examined her, she was pale, cachectic, but no jaundice, cyanosis or thyromegaly. No jugular venous distension. No lower limb edema. VITAL SIGNS: Her heart rate was 93, blood pressure was 122/75, temperature was 97.6, respiratory rate was 18 and oxygen saturation was 96% on 2 liters of oxygen. HEAD, EYES, EARS, NOSE AND THROAT: Showed normocephalic, atraumatic. NECK: Supple. HEART: Showed normal first and second heart sounds. No gallop or murmur. CHEST: Clear to auscultation. No crepitation or rhonchi. ABDOMEN: Distended, soft, nontender. No guarding or rigidity. No organomegaly. All hernial orifices intact. Bowel sounds normal. NEUROLOGIC: She is sleepy, but arousable. All cranial nerves intact. She has functional quadriplegia with neurogenic bladder status post suprapubic catheter placement. She has large sacrococcygeal decubitus ulcer. She has had pneumothorax after a Port-A-Cath placement for which she has a chest tube placed and her lung has completely expanded. Her chest tube is clamped. LABORATORY DATA: As of yesterday showed a white cell count 12,500, hemoglobin 10, hematocrit 31, MCV 70 and platelet count 373,000. Her chemistry showed a serum sodium 142, potassium 3.9, chloride 105, bicarbonate 29, anion gap of 8, BUN 5, creatinine 0.4, estimated GFR was 172, glucose was 80, calcium was 8.6. Total bilirubin, AST, ALT, alkaline phosphatase were normal. ASSESSMENT: 1. The plan is obviously repeat his chest x-ray. If the lung continued to be completely expanded, chest tube will be removed. 2. She is status post Port-A-Cath placement successfully done as well as suprapubic catheter placement. 3. Severe sepsis with lactic acidosis and hypotension resolved. She is off Levophed. 4. She has healthcare-associated pneumonia and urinary tract infection with growth of Klebsiella and Escherichia coli. 5. Chronic sacrococcygeal decubitus ulcer. 6. Progressive multiple sclerosis with functional quadriplegia and neurogenic bladder for which she underwent suprapubic catheter. 7. History of Clostridium difficile colitis, methicillin-resistant Staphylococcus aureus and vancomycin-resistant Enterococcus as well as multidrug resistant. 8. Chronic obstructive pulmonary disease. 9. Factor V Leiden. PLAN: To continue with IV antibiotic. Repeat chest x-ray and if the lung completely expanded, the surgeon would probably remove the tube today. I am hoping to discharge her back to [place] tomorrow. YOLI MEJIA MD DR: JUJU/ronit JOB#: [id number] / [id number]
--- NOTE | 2019-06-23 10:38 | PDOC ---
Infectious Disease Note Subjective Subjective feeling good, no sob ROS ROS no n/v/d/ Vital Sign Vital Signs Vital Signs Date Time Temp Pulse Resp B/P (MAP) Pulse Ox O2 Delivery O2 Flow Rate FiO2 06/23/19 08:00 Nasal Cannula 2.0 06/23/19 07:00 97.6 93 18 122/75 (91) 96 97.6 Physical Exam PHYSICAL EXAM GENERAL: Resting quietly, HEENT: Oropharynx dry, clear LUNGS: Clear to auscultation. HEART: S1 and S2. ABDOMEN: Soft and nontender with bowel sounds present. GENITOURINARY: Indwelling Shafer in place (8-5). EXTREMITIES: No gross edema or cyanosis. Contractures and muscle atrophy. + heel protectors SKIN: Warm to touch. No signs of rash. Sacrococcygeal wound- clean (pic reviewed) NEUROLOGIC: Arouses to name, answering questions appropriately. RIJ (06/13) without signs of complications Labs Micro URINE CULTURE Final Preliminary report Preliminary Report Preliminary report Final report URINE CULTURE RES 1 Final Gram negative rods Gram negative rods Greater than 100,000 colony forming units per mL Performing lab: [address] [address] Dir: ROCK Link MD Gram negative rods Greater than 100,000 colony forming units per mL Performing lab: [address] [address] Dir: ROCK Link MD Klebsiella pneumoniae Greater than 100,000 colony forming units per mL Performed at: [address] [id number] Billboard Erector Helper: ROCK Link MD, Phone: [phone] Greater than 100,000 colony forming units per mL Multi-Drug Resistant Organism Susceptibility profile is consistent with a probable ESBL. URINE CULTURE RES 2 Final Escherichia coli Greater than 100,000 colony forming units per mL Performed at: [address] [id number] Billboard Erector Helper: ROCK Link MD, Phone: [phone] Greater than 100,000 colony forming units per mL Cefazolin <=4 ug/mL Objective Assessment BC + GPC (1 of 4 bottles), 06/11. CoNS likely contaminate Sepsis with lactic acidosis and hypotension, off vasopressor support - clinically improving HCAP Pyuria. Shafer chg 06/12. E. coli and Klebsiella Leukocytosis - improved Chronic sacrococcygeal pressure wound MS h/x C. diff colitis 12/2018 h/o MRSA, VRE and MDR infections h/o E. coli in urine Pneumothorax, improved Plan Plan of Care Maintain aspiration precautions Wound team following Offloading Port-A-Cath done, pneumothorax, s/p chest tube placement,, should be removed today d/c cv line ok to d/c D/w nurse ROSEMARY THOMAS MD Jun 23, 2019 10:38
[2019-06-23 11:00] VITALS: BP 141/79
--- NOTE | 2019-06-23 12:28 | NUR ---
SS following up with discharge planning. SS phoned and faxed clinical updates to [facility], ; fax [phone]. SS will continue to follow for discharge planning.
[2019-06-23 15:00] VITALS: BP 120/74
--- NOTE | 2019-06-23 16:12 | RAD ---
EXAM: AP pelvis DATE: 06/23/2019 5:00 AM INDICATION: Chest tube COMPARISON: 06/22/2019 FINDINGS/ IMPRESSION: Left chest tube is in stable position. No definite left pneumothorax. Left chest port is in stable position. Right IJ vascular catheter tip projects over the distal SVC/right atrium, stable. Cardiac mediastinal silhouette is stable. Bibasilar airspace opacities are seen. Small left pleural effusion. Electronically signed by: Moo Frederick MD (06/23/2019 4:09 PM) [facility]
--- NOTE | 2019-06-23 16:22 | RAD ---
Single AP view of the chest. Comparison: 9:40 AM of the same day. Indication: Chest tube removal Findings: Left internal jugular Port-A-Cath and right internal jugular central line are stable. Indwelling left chest tube is been removed. The heart is not enlarged. There is no pneumothorax or effusion. No air space or interstitial disease. Impression: 1. No pneumothorax following chest tube removal. Electronically signed by: Phuc Mendoza MD (06/23/2019 4:19 PM) [facility]
--- NOTE | 2019-06-23 19:19 | NUR ---
Around 185 patient's HR was in 140's-150's. BP 112/75. Patient was just resting in bed & stated she felt ok. STAT EKG ordered. Dr. Frankel notified. Dr. Gonzalez consulted & talked to, orders received. Will continue to monitor.
--- NOTE | 2019-06-23 19:23 | EKG ---
[facility] [address] [place] [address] Test Date: 2019-06-23 Test Time: 20:12:17 Pat Name: LENNY EVERETT Department: Room: 207 1 Gender: F Bpm Analyst: KERRIE : 1975 Requested By: CHRIS MCGILL Order Number: [id number] Reading MD: Juan Otoole MD Measurements Intervals [place] Rate: 142 P: 38 AK: 106 QRS: -1 QRSD: 68 T: 78 QT: 288 QTc: 443 Interpretive Statements SINUS TACHYCARDIA NON-SPECIFIC ST/T CHANGES Electronically Signed On 06-29-2019 17:30:33 CDT by Juan Otoole MD
[2019-06-23 19:30] VITALS: BP 99/78
[2019-06-23] MEDS: METOPROLOL TART IMMED RELEASE 25 MG TABLET. PO SCH (19:33)
[2019-06-23] MEDS: ALPRAZolam 0.5 MG TABLET PO SCH (20:41)
[2019-06-23 23:13] VITALS: BP 116/78
[2019-06-24] MEDS: oxyCODONE/APAP 5/325 1 TAB TABLET PO PRN ×4 (00:39→21:29)
[2019-06-24 03:50] VITALS: BP 125/77
[2019-06-24] MEDS: IV NORMAL SALINE 1000ML BAG 1,000 ML IV SCH ×2 (05:18→17:30)
[2019-06-24 07:00] VITALS: BP 19/82
--- NOTE | 2019-06-24 07:25 | PDOC ---
PULMONARY PROGRESS NOTES Subjective sob better, no cough, some l side pain Vitals Vital Signs Date Time Temp Pulse Resp B/P (MAP) Pulse Ox O2 Delivery O2 Flow Rate FiO2 06/24/19 06:22 18 97 Nasal Cannula 2.0 06/24/19 03:50 97.7 88 125/77 (93) 97.7 ROS: No Nausea General: Alert Lungs: Other (decrease bases,) Cardiovascular: S1, S2 Abdomen: Soft, Non-tender Neuro Exam: Alert Extremities: No Edema Skin: Warm, Dry (resp effort imporved somehwat after fluids.) Medications Active Scripts Medications Dose Route/Sig Max Daily Dose Days Date Category Augmentin 875-125 Tablet (Amoxicillin/Potassium Clav) 1 Each Tablet 1 Tab PO BID 5 05/29/19 Rx Oxycodone HCl ER (Oxycodone HCl) 10 Mg Tab.er.12h 10 Mg PO BID 05/24/19 Reported Dantrolene Sodium 25 Mg Capsule 75 Mg PO QID 05/24/19 Reported Acidophilus (Lactobacillus Acidophilus) 1 Each Tab.chew 2 Each PO BID 05/24/19 Reported Thera Tablet (Multivitamin with Folic Acid) 400 Mcg Tablet 400 Mcg PO DAILY 05/24/19 Reported Sennosides 8.6 Mg Tablet 8.6 Mg PO DAILY 05/24/19 Reported Percocet 5-325 Mg Tablet (Oxycodone/Acetaminophen) 1 Each Tablet 1 Tab PO PRN Q4HRS PRN 05/24/19 Reported Potassium Chloride 20 Meq Tablet.er 40 Meq PO DAILY 12/30/18 Reported Oxybutynin Chloride 5 Mg Tablet 5 Mg PO TID 12/30/18 Reported Zofran (Ondansetron Hcl) 4 Mg Tablet 1 Tab PO PRN Q4HRS PRN 12/30/18 Reported NICODERM CQ 14mg (Nicotine) 1 Each Patch.td24 1 Patch TP DAILY 12/30/18 Reported Loratadine 10 Mg Tablet 1 Tab PO DAILY 12/30/18 Reported Duoneb 0.5-3(2.5) Mg/3 Ml (Albuterol/Ipratropium) 3 Ml Ampul.neb 3 Ml NEB TID 12/30/18 Reported Mucinex (Guaifenesin) 600 Mg Tablet.er 1 Tab PO BID 12/30/18 Reported Ferrous Sulfate 325 Mg Tablet 325 Mg PO DAILY 12/30/18 Reported Famotidine 20 Mg Tablet 20 Mg PO BID 12/30/18 Reported Cymbalta (Duloxetine Hcl) 30 Mg Capsule.dr 30 Mg PO DAILY 12/30/18 Reported Baclofen 20 Mg Tablet 20 Mg PO QID 12/30/18 Reported Eliquis (Apixaban) 5 Mg Tablet 5 Mg PO BID 12/30/18 Reported Alprazolam 0.5 Mg Tablet 1 Tab PO HS 12/30/18 Reported Tylenol (Acetaminophen) 325 Mg Tablet 650 Mg PO PRN Q4HRS PRN 12/30/18 Reported Impression . 1. Acute respiratory failure due to pneumonia, septic shock 2. Septic shock. resolved 3. Lactic acidosis secondary to sepsis. resolved 4. Pneumonia, gram-positive, gram-negative. 5. Pyuria. 6. Chronic sacrococcygeal pressure wounds, stage 4. 7. Progressive multiple sclerosis. 8. History of Clostridium difficile. 9. History of methicillin-resistant Staphylococcus aureus. 10.Tobacco dependence. 11. Factor V Leiden mutation.no PE/ DVT 12. Severe PCM 13. Low K, Mg, CORRECTED 14. MS 15. S/P CENTRAL LINE /PTX 06/11. BLOOD CULTURE Final GRAM POSITIVE COCCI IN CLUSTERS 2 SETS DRAWN, 1 OF 4 POSITIVE Plan . abx per id RESP STATUS IS COMPENSATED NO PTX ON CHEST XRAY CHEST TUBE REMOVED DVT AND GI PROPH discussed w pt SAYRA MARQUEZ MD Jun 24, 2019 07:25
[2019-06-24] MEDS: IPRATRPIUM/ALBUTEROL 0.5/2.5MG 3 ML NEBU. NEB SCH ×4 (07:37→18:20)
[2019-06-24] MEDS: FERROUS SULFATE 325 MG TABLET. PO SCH (08:00)
[2019-06-24 09:46] LABS: BASO % 1 % (0-3); EOS # 0.2 x10^3/uL (0.0-0.7); EOS % 2 % (0-3); HEMATOCRIT 34.9 % (36.0-47.0); HEMOGLOBIN 11.3 g/dL (12.0-15.5); LYMPH # 1.6 x10^3/uL (1.0-4.8); LYMPH % 20 % (24-48); MEAN CORPUSCULAR HEMOGLOBIN 23 pg (25-35); MEAN CORPUSCULAR HGB CONC 33 g/dL (31-37); MEAN CORPUSCULAR VOLUME 70 fL (79-100); MONO # 0.5 x10^3/uL (0.0-1.1); MONO % 7 % (0-9); NEUT # 5.8 x10^3/uL (1.8-7.7); NEUT % 71 % (31-73); PLATELET COUNT 324 x10^3/uL (140-400); RED BLOOD COUNT 4.97 x10^6/uL (3.50-5.40); RED CELL DISTRIBUTION WIDTH 20.8 % (11.5-14.5); WHITE BLOOD COUNT 8.2 x10^3/uL (4.0-11.0)
[2019-06-24] MEDS: OXYBUTYNIN CHLORIDE 5 MG TABLET PO SCH ×3 (09:50→21:20)
[2019-06-24] MEDS: NYSTATIN 100,000 UNITS/ML 5 ML ORAL.SUSP. SWSW SCH ×4 (09:50→21:21)
[2019-06-24] MEDS: FAMOTIDINE 20 MG TABLET. PO SCH ×2 (09:51→21:20)
[2019-06-24] MEDS: DANTROLENE SODIUM 25 MG CAPSULE PO SCH ×4 (09:52→21:20)
[2019-06-24] MEDS: DULoxetine HCL 30 MG CAPSULE.DR PO SCH (09:52)
[2019-06-24] MEDS: LACTOBACILLUS RHAMNOSUS GG 1 CAPSULE. PO SCH ×2 (09:52→21:19)
[2019-06-24] MEDS: MULTIVITAMIN with MINERAL TABLET. PO SCH (09:52)
[2019-06-24] MEDS: POTASSIUM CHLORIDE 20 MEQ TABLET.ER. PO SCH (09:53)
[2019-06-24] MEDS: CYCLOBENZAPRINE 10 MG TABLET. PO SCH ×3 (09:55→21:20)
[2019-06-24] MEDS: METOPROLOL TART IMMED RELEASE 25 MG TABLET. PO SCH ×2 (09:56→21:21)
[2019-06-24 10:04] LABS: CALCIUM 8.8 mg/dL (8.5-10.1); CREATININE 0.4 mg/dL (0.6-1.0); GFR 172.6; POTASSIUM 3.7 mmol/L (3.5-5.1)
[2019-06-24] MEDS: oxyCODONE ER 10 MG TAB.ER.12H PO SCH ×2 (10:07→21:20)
[2019-06-24 10:10] LABS: ALBUMIN 2.6 g/dL (3.4-5.0); ALBUMIN/GLOBULIN RATIO 0.6 (1.0-1.7); TOTAL BILIRUBIN 0.3 mg/dL (0.2-1.0); TOTAL PROTEIN 6.8 g/dL (6.4-8.2)
[2019-06-24 11:00] VITALS: BP 116/84
--- NOTE | 2019-06-24 11:07 | RAD ---
CHEST AP ONLY History: Worsening chest pain Comparison: June 23, 2019 Findings: 2 AP views of the chest are submitted. There is again left internal jugular catheter and also right internal jugular catheter as seen previously. No pneumothorax is identified. There is again apparent elevation of the right hemidiaphragm. Cardiac silhouette is similar. There is minimal left base atelectasis. Degree of volume loss of the right hemithorax and degree of right infrahilar opacity is similar. Impression: 1. Radiographic findings are unchanged as described. There is a similar degree of volume loss of the right hemithorax, similar degree of nonspecific right infrahilar opacity. There is mild left base atelectasis. Electronically signed by: Marcelino Sahu MD (06/24/2019 11:04 AM) [facility]
--- NOTE | 2019-06-24 12:10 | PDOC ---
Infectious Disease Note Subjective Subjective feeling good, no sob ROS ROS no n/v/d/ Vital Sign Vital Signs Vital Signs Date Time Temp Pulse Resp B/P (MAP) Pulse Ox O2 Delivery O2 Flow Rate FiO2 06/24/19 10:07 20 Room Air 06/24/19 09:56 117 122/92 06/24/19 07:37 95 2.0 06/24/19 07:00 98.1 98.1 Physical Exam PHYSICAL EXAM GENERAL: Resting quietly, HEENT: Oropharynx dry, clear LUNGS: Clear to auscultation. HEART: S1 and S2. ABDOMEN: Soft and nontender with bowel sounds present. GENITOURINARY: Indwelling Shafer in place (8-5). EXTREMITIES: No gross edema or cyanosis. Contractures and muscle atrophy. + heel protectors SKIN: Warm to touch. No signs of rash. Sacrococcygeal wound- clean (pic reviewed) NEUROLOGIC: Arouses to name, answering questions appropriately. RIJ (06/13) without signs of complications Labs Lab Laboratory Tests Test 06/24/19 09:35 White Blood Count 8.2 x10^3/uL (4.0-11.0) Red Blood Count 4.97 x10^6/uL (3.50-5.40) Hemoglobin 11.3 g/dL (12.0-15.5) Hematocrit 34.9 % (36.0-47.0) Mean Corpuscular Volume 70 fL (79-100) Mean Corpuscular Hemoglobin 23 pg (25-35) Mean Corpuscular Hemoglobin Concent 33 g/dL (31-37) Red Cell Distribution Width 20.8 % (11.5-14.5) Platelet Count 324 x10^3/uL (140-400) Neutrophils (%) (Auto) 71 % (31-73) Lymphocytes (%) (Auto) 20 % (24-48) Monocytes (%) (Auto) 7 % (0-9) Eosinophils (%) (Auto) 2 % (0-3) Basophils (%) (Auto) 1 % (0-3) Neutrophils # (Auto) 5.8 x10^3/uL (1.8-7.7) Lymphocytes # (Auto) 1.6 x10^3/uL (1.0-4.8) Monocytes # (Auto) 0.5 x10^3/uL (0.0-1.1) Eosinophils # (Auto) 0.2 x10^3/uL (0.0-0.7) Basophils # (Auto) 0.0 x10^3/uL (0.0-0.2) Sodium Level 141 mmol/L (136-145) Potassium Level 3.7 mmol/L (3.5-5.1) Chloride Level 105 mmol/L (98-107) Carbon Dioxide Level 26 mmol/L (21-32) Anion Gap 10 (6-14) Blood Urea Nitrogen 6 mg/dL (7-20) Creatinine 0.4 mg/dL (0.6-1.0) Estimated GFR (Cockcroft-Gault) 172.6 BUN/Creatinine Ratio 15 (6-20) Glucose Level 86 mg/dL (70-99) Calcium Level 8.8 mg/dL (8.5-10.1) Total Bilirubin 0.3 mg/dL (0.2-1.0) Aspartate Amino Transf (AST/SGOT) 7 U/L (15-37) Alanine Aminotransferase (ALT/SGPT) 9 U/L (14-59) Alkaline Phosphatase 40 U/L (46-116) Total Protein 6.8 g/dL (6.4-8.2) Albumin 2.6 g/dL (3.4-5.0) Albumin/Globulin Ratio 0.6 (1.0-1.7) Micro URINE CULTURE Final Preliminary report Preliminary Report Preliminary report Final report URINE CULTURE RES 1 Final Gram negative rods Gram negative rods Greater than 100,000 colony forming units per mL Performing lab: [address] [id number] Dir: ROCK Link MD Gram negative rods Greater than 100,000 colony forming units per mL Performing lab: [address] [id number] Dir: ROCK Link MD Klebsiella pneumoniae Greater than 100,000 colony forming units per mL Performed at: - [address] [id number] Operations Clerk: ROCK Link MD, Phone: [phone] Greater than 100,000 colony forming units per mL Multi-Drug Resistant Organism Susceptibility profile is consistent with a probable ESBL. URINE CULTURE RES 2 Final Escherichia coli Greater than 100,000 colony forming units per mL Performed at: DA - [facility] [address], [place], [place] [id number] Operations Clerk: ROCK Link MD, Phone: [phone] Greater than 100,000 colony forming units per mL Cefazolin <=4 ug/mL Objective Assessment BC + GPC (1 of 4 bottles), 06/11. CoNS likely contaminate Sepsis with lactic acidosis and hypotension, off vasopressor support - clinically improving HCAP Pyuria. Shafer chg 06/12. E. coli and Klebsiella Leukocytosis - improved Chronic sacrococcygeal pressure wound MS h/x C. diff colitis 12/2018 h/o MRSA, VRE and MDR infections h/o E. coli in urine Pneumothorax, improved Plan Plan of Care Maintain aspiration precautions Wound team following Offloading Port-A-Cath done, pneumothorax, s/p chest tube placement,, should be removed today d/c cv line ok to d/c D/w nurse ROSEMARY THOMAS MD Jun 24, 2019 12:10
[2019-06-24 15:00] VITALS: BP 106/63
--- NOTE | 2019-06-24 18:33 | PN ---
DATE: 06/24/2019 SUBJECTIVE: The patient is resting slightly propped up in bed, in no apparent respiratory distress. She continued to complain of severe pain in her left chest, left shoulder, also short of breath. She is anxious and does not want to go today to [facility]. OBJECTIVE: GENERAL: When I examined her this morning, she was pale; no jaundice, cyanosis, or thyromegaly. No jugular venous distension. No limb edema. VITAL SIGNS: Her heart rate was 88, blood pressure was 125/77, temperature was 97.7, respiratory rate was 18, and oxygen saturation was 97% on 2 liters of oxygen. Her intake was 1700, output was 2750. HEENT: Normocephalic, atraumatic. NECK: Supple. HEART: Normal first and second heart sounds. No gallop or murmur. CHEST: Shows central trachea, equally reduced expansion, reduced air entry, vesicular sounds. I could not really appreciate any crepitation or rhonchi. ABDOMEN: Scaphoid, soft, nontender. NEUROLOGIC: She is awake, alert; all her cranial nerves intact. She has functional quadriplegia with neurogenic bladder requiring a suprapubic catheter. SKIN: She has large sacrococcygeal decubitus ulcer. LABORATORY DATA: Her most recent lab work showed a white cell count 12,500, hemoglobin 10, hematocrit 31, MCV 70, and platelet count 373,000; BUN is 5, creatinine 0.4. ASSESSMENT: 1. The patient has had Port-A-Cath placement with left-sided pneumothorax developed as a complication; however, the lung has completely expanded and her chest tube was removed. 2. Neurogenic bladder, status post suprapubic catheter placement. 3. Severe sepsis with lactic acidosis and hypotension, resolved. She is off Levophed. 4. She has healthcare-associated pneumonia and urinary tract infection with growth of Klebsiella and Escherichia coli. 5. Chronic sacrococcygeal decubitus ulcer. 6. Progressive multiple sclerosis, functional quadriplegia, and neurogenic bladder for which she underwent suprapubic catheter placement. 7. History of Clostridium difficile colitis, methicillin-resistant Staphylococcus aureus, and vancomycin-resistant Enterococcus as well as multidrug resistant. 8. Chronic obstructive pulmonary disease. 9. Factor V Leiden without any deep venous thrombosis or pulmonary embolism. PLAN: I added OxyContin 10 mg twice a day for pain management. Continue with nutritional support as she has severe protein-calorie malnutrition. Continue with oral antibiotic. The patient is very anxious today and does not want to go to [place]. YOLI MEJIA MD DR: JUJU/ronit JOB#: [id number] / [id number]
[2019-06-24 19:30] VITALS: BP 123/67
[2019-06-24] MEDS: ALPRAZolam 0.5 MG TABLET PO SCH (21:21)
[2019-06-24] MEDS: CLOTRIMAZOLE 1% VAGINAL CREAM 45GM TUBE. VG SCH (21:21)
[2019-06-24 23:15] VITALS: BP 120/67
[2019-06-25] MEDS: IV NORMAL SALINE 1000ML BAG 1,000 ML IV SCH (02:47)
[2019-06-25 03:15] VITALS: BP 111/64
[2019-06-25] MEDS: oxyCODONE/APAP 5/325 1 TAB TABLET PO PRN ×3 (04:29→22:15)
[2019-06-25 07:00] VITALS: BP 117/67
[2019-06-25] MEDS: IPRATRPIUM/ALBUTEROL 0.5/2.5MG 3 ML NEBU. NEB SCH ×4 (07:09→19:40)
--- NOTE | 2019-06-25 07:42 | PDOC ---
PULMONARY PROGRESS NOTES Subjective sob better, no cough, some l side pain, better Vitals Vital Signs Date Time Temp Pulse Resp B/P (MAP) Pulse Ox O2 Delivery O2 Flow Rate FiO2 06/25/19 07:10 Nasal Cannula 2.0 06/25/19 05:29 18 96 06/25/19 03:15 98.0 97 111/64 (80) 98.0 ROS: No Nausea General: Alert Lungs: Other (decrease bases,) Cardiovascular: S1, S2 Abdomen: Soft, Non-tender Neuro Exam: Alert Extremities: No Edema Skin: Warm, Dry (resp effort imporved somehwat after fluids.) Labs Laboratory Tests Test 06/24/19 09:35 White Blood Count 8.2 x10^3/uL (4.0-11.0) Red Blood Count 4.97 x10^6/uL (3.50-5.40) Hemoglobin 11.3 g/dL (12.0-15.5) Hematocrit 34.9 % (36.0-47.0) Mean Corpuscular Volume 70 fL (79-100) Mean Corpuscular Hemoglobin 23 pg (25-35) Mean Corpuscular Hemoglobin Concent 33 g/dL (31-37) Red Cell Distribution Width 20.8 % (11.5-14.5) Platelet Count 324 x10^3/uL (140-400) Neutrophils (%) (Auto) 71 % (31-73) Lymphocytes (%) (Auto) 20 % (24-48) Monocytes (%) (Auto) 7 % (0-9) Eosinophils (%) (Auto) 2 % (0-3) Basophils (%) (Auto) 1 % (0-3) Neutrophils # (Auto) 5.8 x10^3/uL (1.8-7.7) Lymphocytes # (Auto) 1.6 x10^3/uL (1.0-4.8) Monocytes # (Auto) 0.5 x10^3/uL (0.0-1.1) Eosinophils # (Auto) 0.2 x10^3/uL (0.0-0.7) Basophils # (Auto) 0.0 x10^3/uL (0.0-0.2) Sodium Level 141 mmol/L (136-145) Potassium Level 3.7 mmol/L (3.5-5.1) Chloride Level 105 mmol/L (98-107) Carbon Dioxide Level 26 mmol/L (21-32) Anion Gap 10 (6-14) Blood Urea Nitrogen 6 mg/dL (7-20) Creatinine 0.4 mg/dL (0.6-1.0) Estimated GFR (Cockcroft-Gault) 172.6 BUN/Creatinine Ratio 15 (6-20) Glucose Level 86 mg/dL (70-99) Calcium Level 8.8 mg/dL (8.5-10.1) Total Bilirubin 0.3 mg/dL (0.2-1.0) Aspartate Amino Transf (AST/SGOT) 7 U/L (15-37) Alanine Aminotransferase (ALT/SGPT) 9 U/L (14-59) Alkaline Phosphatase 40 U/L (46-116) Total Protein 6.8 g/dL (6.4-8.2) Albumin 2.6 g/dL (3.4-5.0) Albumin/Globulin Ratio 0.6 (1.0-1.7) Laboratory Tests Test 06/24/19 09:35 White Blood Count 8.2 x10^3/uL (4.0-11.0) Red Blood Count 4.97 x10^6/uL (3.50-5.40) Hemoglobin 11.3 g/dL (12.0-15.5) Hematocrit 34.9 % (36.0-47.0) Mean Corpuscular Volume 70 fL (79-100) Mean Corpuscular Hemoglobin 23 pg (25-35) Mean Corpuscular Hemoglobin Concent 33 g/dL (31-37) Red Cell Distribution Width 20.8 % (11.5-14.5) Platelet Count 324 x10^3/uL (140-400) Neutrophils (%) (Auto) 71 % (31-73) Lymphocytes (%) (Auto) 20 % (24-48) Monocytes (%) (Auto) 7 % (0-9) Eosinophils (%) (Auto) 2 % (0-3) Basophils (%) (Auto) 1 % (0-3) Neutrophils # (Auto) 5.8 x10^3/uL (1.8-7.7) Lymphocytes # (Auto) 1.6 x10^3/uL (1.0-4.8) Monocytes # (Auto) 0.5 x10^3/uL (0.0-1.1) Eosinophils # (Auto) 0.2 x10^3/uL (0.0-0.7) Basophils # (Auto) 0.0 x10^3/uL (0.0-0.2) Sodium Level 141 mmol/L (136-145) Potassium Level 3.7 mmol/L (3.5-5.1) Chloride Level 105 mmol/L (98-107) Carbon Dioxide Level 26 mmol/L (21-32) Anion Gap 10 (6-14) Blood Urea Nitrogen 6 mg/dL (7-20) Creatinine 0.4 mg/dL (0.6-1.0) Estimated GFR (Cockcroft-Gault) 172.6 BUN/Creatinine Ratio 15 (6-20) Glucose Level 86 mg/dL (70-99) Calcium Level 8.8 mg/dL (8.5-10.1) Total Bilirubin 0.3 mg/dL (0.2-1.0) Aspartate Amino Transf (AST/SGOT) 7 U/L (15-37) Alanine Aminotransferase (ALT/SGPT) 9 U/L (14-59) Alkaline Phosphatase 40 U/L (46-116) Total Protein 6.8 g/dL (6.4-8.2) Albumin 2.6 g/dL (3.4-5.0) Albumin/Globulin Ratio 0.6 (1.0-1.7) Medications Active Scripts Medications Dose Route/Sig Max Daily Dose Days Date Category Augmentin 875-125 Tablet (Amoxicillin/Potassium Clav) 1 Each Tablet 1 Tab PO BID 5 05/29/19 Rx Oxycodone HCl ER (Oxycodone HCl) 10 Mg Tab.er.12h 10 Mg PO BID 05/24/19 Reported Dantrolene Sodium 25 Mg Capsule 75 Mg PO QID 05/24/19 Reported Acidophilus (Lactobacillus Acidophilus) 1 Each Tab.chew 2 Each PO BID 05/24/19 Reported Thera Tablet (Multivitamin with Folic Acid) 400 Mcg Tablet 400 Mcg PO DAILY 05/24/19 Reported Sennosides 8.6 Mg Tablet 8.6 Mg PO DAILY 05/24/19 Reported Percocet 5-325 Mg Tablet (Oxycodone/Acetaminophen) 1 Each Tablet 1 Tab PO PRN Q4HRS PRN 05/24/19 Reported Potassium Chloride 20 Meq Tablet.er 40 Meq PO DAILY 12/30/18 Reported Oxybutynin Chloride 5 Mg Tablet 5 Mg PO TID 12/30/18 Reported Zofran (Ondansetron Hcl) 4 Mg Tablet 1 Tab PO PRN Q4HRS PRN 12/30/18 Reported NICODERM CQ 14mg (Nicotine) 1 Each Patch.td24 1 Patch TP DAILY 12/30/18 Reported Loratadine 10 Mg Tablet 1 Tab PO DAILY 12/30/18 Reported Duoneb 0.5-3(2.5) Mg/3 Ml (Albuterol/Ipratropium) 3 Ml Ampul.neb 3 Ml NEB TID 12/30/18 Reported Mucinex (Guaifenesin) 600 Mg Tablet.er 1 Tab PO BID 12/30/18 Reported Ferrous Sulfate 325 Mg Tablet 325 Mg PO DAILY 12/30/18 Reported Famotidine 20 Mg Tablet 20 Mg PO BID 12/30/18 Reported Cymbalta (Duloxetine Hcl) 30 Mg Capsule.dr 30 Mg PO DAILY 12/30/18 Reported Baclofen 20 Mg Tablet 20 Mg PO QID 12/30/18 Reported Eliquis (Apixaban) 5 Mg Tablet 5 Mg PO BID 12/30/18 Reported Alprazolam 0.5 Mg Tablet 1 Tab PO HS 12/30/18 Reported Tylenol (Acetaminophen) 325 Mg Tablet 650 Mg PO PRN Q4HRS PRN 12/30/18 Reported Impression . 1. Acute respiratory failure due to pneumonia, septic shock 2. Septic shock. resolved 3. Lactic acidosis secondary to sepsis. resolved 4. Pneumonia, gram-positive, gram-negative. 5. Pyuria. 6. Chronic sacrococcygeal pressure wounds, stage 4. 7. Progressive multiple sclerosis. 8. History of Clostridium difficile. 9. History of methicillin-resistant Staphylococcus aureus. 10.Tobacco dependence. 11. Factor V Leiden mutation.no PE/ DVT 12. Severe PCM 13. Low K, Mg, CORRECTED 14. MS 15. S/P CENTRAL LINE /PTX 8/. BLOOD CULTURE Final GRAM POSITIVE COCCI IN CLUSTERS 2 SETS DRAWN, 1 OF 4 POSITIVE Plan . abx per id review cxr RESP STATUS IS COMPENSATED CHEST TUBE REMOVED DVT AND GI PROPH discussed w pt SAYRA MARQUEZ MD Jun 25, 2019 07:42
[2019-06-25] MEDS: NYSTATIN 100,000 UNITS/ML 5 ML ORAL.SUSP. SWSW SCH ×4 (09:00→20:51)
[2019-06-25] MEDS: MULTIVITAMIN with MINERAL TABLET. PO SCH (09:35)
[2019-06-25] MEDS: FAMOTIDINE 20 MG TABLET. PO SCH ×2 (09:36→20:46)
[2019-06-25] MEDS: METOPROLOL TART IMMED RELEASE 25 MG TABLET. PO SCH ×2 (09:36→20:47)
[2019-06-25] MEDS: POTASSIUM CHLORIDE 20 MEQ TABLET.ER. PO SCH (09:36)
[2019-06-25] MEDS: DANTROLENE SODIUM 25 MG CAPSULE PO SCH ×4 (09:36→20:46)
[2019-06-25] MEDS: CYCLOBENZAPRINE 10 MG TABLET. PO SCH ×3 (09:37→20:46)
[2019-06-25] MEDS: DULoxetine HCL 30 MG CAPSULE.DR PO SCH (09:37)
[2019-06-25] MEDS: FERROUS SULFATE 325 MG TABLET. PO SCH (09:37)
[2019-06-25] MEDS: OXYBUTYNIN CHLORIDE 5 MG TABLET PO SCH ×3 (09:37→20:47)
[2019-06-25] MEDS: oxyCODONE ER 10 MG TAB.ER.12H PO SCH ×2 (09:37→20:47)
[2019-06-25] MEDS: LACTOBACILLUS RHAMNOSUS GG 1 CAPSULE. PO SCH ×2 (09:37→20:46)
--- NOTE | 2019-06-25 10:01 | PN ---
DATE: 06/25/2019 SUBJECTIVE: The patient is resting, slightly propped up in bed, no apparent distress, awake, alert, continued to have some discomfort in the left side of her chest. We did repeat a chest x-ray yesterday, which showed no evidence of pneumothorax. She does have volume loss of the right hemithorax, similar degree of nonspecific right infrahilar opacity. There is mild left base atelectasis. PHYSICAL EXAMINATION: GENERAL: When I examined her, she looked pale, cachectic, but no jaundice or cyanosis. No lymphadenopathy, no thyromegaly. No jugular venous distention. No limb edema. VITAL SIGNS: Her heart rate was 113, blood pressure was 117/67, temperature was 98, respiratory rate was 16, and oxygen saturation was 93% on 2 liters of oxygen. The rest of clinical examination is stable, has not really changed. Her intake over the last 24 hours was 1880, output was 4800. LABORATORY DATA: As of yesterday, her serum sodium was 141, potassium 3.7, chloride 105, bicarbonate 26, anion gap of 10, BUN 6, creatinine 0.4. Her white cell count was 8200, hemoglobin 11, hematocrit 34, MCV 70 and platelet count 324,000. ASSESSMENT: 1. The patient has Port-A-Cath placement, complicated by left-sided pneumothorax. Her left lung has completely expanded and her chest tube was removed. 2. Neurogenic bladder, status post suprapubic catheter placement. 3. Severe sepsis, lactic acidosis and hypotension resolved. She is off Levophed. 4. She has healthcare-associated pneumonia and urinary tract infection with growth of Klebsiella pneumoniae as well as Escherichia coli. 5. Chronic sacrococcygeal decubitus ulcer. 6. Progressive multiple sclerosis with functional quadriplegia and neurogenic bladder for which she has underwent suprapubic catheter placement. 7. History of Clostridium difficile colitis, methicillin-resistant Staphylococcus aureus, vancomycin-resistant Enterococcus as well as multidrug resistant organism. 8. Chronic obstructive pulmonary disease. 9. Factor V Leiden without any deep vein thrombosis or pulmonary embolism. PLAN: To continue with the pain management. Continue with nutritional support. If she remains stable tomorrow, we will discharge to [facility] in [place]. YOLI MEJIA MD DR: JUJU/ronit JOB#: [id number] / [id number]
[2019-06-25 11:00] VITALS: BP 106/65
[2019-06-25 15:00] VITALS: BP 112/57
[2019-06-25 19:00] VITALS: BP 107/63
[2019-06-25] MEDS: ALPRAZolam 0.5 MG TABLET PO SCH (20:46)
[2019-06-25] MEDS: APIXABAN 5 MG TABLET. PO SCH (20:46)
[2019-06-25] MEDS: CLOTRIMAZOLE 1% VAGINAL CREAM 45GM TUBE. VG SCH (20:48)
[2019-06-25 22:59] VITALS: BP 106/66
[2019-06-26 03:29] VITALS: BP 116/69
[2019-06-26] MEDS: IPRATRPIUM/ALBUTEROL 0.5/2.5MG 3 ML NEBU. NEB SCH ×3 (07:23→15:17)
[2019-06-26 07:26] VITALS: BP 111/67
[2019-06-26] MEDS: POTASSIUM CHLORIDE 20 MEQ TABLET.ER. PO SCH (08:46)
[2019-06-26] MEDS: FAMOTIDINE 20 MG TABLET. PO SCH (08:46)
[2019-06-26] MEDS: APIXABAN 5 MG TABLET. PO SCH (08:46)
[2019-06-26] MEDS: CYCLOBENZAPRINE 10 MG TABLET. PO SCH ×2 (08:46→15:45)
[2019-06-26] MEDS: DANTROLENE SODIUM 25 MG CAPSULE PO SCH ×3 (08:46→15:46)
[2019-06-26] MEDS: MULTIVITAMIN with MINERAL TABLET. PO SCH (08:46)
[2019-06-26] MEDS: FERROUS SULFATE 325 MG TABLET. PO SCH (08:47)
[2019-06-26] MEDS: METOPROLOL TART IMMED RELEASE 25 MG TABLET. PO SCH (08:47)
[2019-06-26] MEDS: DULoxetine HCL 30 MG CAPSULE.DR PO SCH (08:47)
[2019-06-26] MEDS: oxyCODONE ER 10 MG TAB.ER.12H PO SCH (08:48)
[2019-06-26] MEDS: LACTOBACILLUS RHAMNOSUS GG 1 CAPSULE. PO SCH (08:48)
[2019-06-26] MEDS: OXYBUTYNIN CHLORIDE 5 MG TABLET PO SCH ×2 (08:48→15:45)
[2019-06-26] MEDS: NYSTATIN 100,000 UNITS/ML 5 ML ORAL.SUSP. SWSW SCH ×2 (09:00→13:00)
[2019-06-26 10:48] VITALS: BP 98/58
--- NOTE | 2019-06-26 11:14 | SNU/HH DC ---
DISCHARGE ORDERS DISCHARGE INFORMATION: DISCHARGE DATE: Jun 26, 2019 FINAL DIAGNOSIS Problems Medical Problems: (1) Acute respiratory failure Status: Acute (2) HCAP (healthcare-associated pneumonia) Status: Acute (3) Hypokalemia Status: Acute (4) Hypomagnesemia Status: Acute (5) Multiple sclerosis, primary progressive Status: Chronic (6) Pyuria Status: Acute (7) Sepsis Status: Acute (8) Septic shock Status: Acute (9) Severe protein-calorie malnutrition Status: Chronic CONDITION ON DISCHARGE: Stable CODE STATUS: Code Status: Full MCFP: SNF STAY <30 DAYS: Yes POST DISCHARGE ORDERS: ACTIVITY ORDERS: Resume previous activity WEIGHT BEARING STATUS: As tolerated, Non weight bearing DIET AFTER DISCHARGE: Regular WOUND/INCISION CARE: Change dressing, Reinforce dressing PRN CHECKS AFTER DISCHARGE: CHECKS AFTER DISCHARGE: Check blood press - daily TREATMENT/EQUIPMENT ORDERS: ADAPTIVE EQUIPMENT NEEDED: None, Wheelchair Physical Therapy For: Evalulation/Treatment Occupational Therapy For: Evaluation/Treatment DISCHARGE MEDICATIONS: Home Meds Active Scripts Amoxicillin/Potassium Clav (AUGMENTIN 875-125 TABLET) 1 Each Tablet, 1 TAB PO BID for PNEUMONIA for 5 Days, #10 TAB Prov:YOLI MEJIA MD 05/29/19 Reported Medications Oxycodone HCl (Oxycodone HCl ER) 10 Mg Tab.er.12h, 10 MG PO BID for chronic pain, TAB.SR 05/24/19 Dantrolene Sodium (DANTROLENE SODIUM) 25 Mg Capsule, 75 MG PO QID for muscle spasms , CAP 05/24/19 Lactobacillus Acidophilus (ACIDOPHILUS) 1 Each Tab.chew, 2 EACH PO BID for probiotic, TAB.CHEW 05/24/19 Multivitamin with Folic Acid (Thera Tablet) 400 Mcg Tablet, 400 MCG PO DAILY for supplement , TAB 05/24/19 Sennosides (SENNOSIDES) 8.6 Mg Tablet, 8.6 MG PO DAILY for constipation, TAB 05/24/19 Oxycodone/Apap 5-325 (PERCOCET 5-325 MG TABLET ) 1 Each Tablet, 1 TAB PO PRN Q4HRS PRN for PAIN, TAB 0 Refills 05/24/19 Potassium Chloride (POTASSIUM CHLORIDE) 20 Meq Tablet.er, 40 MEQ PO DAILY for nutritional supplement, TAB.SR 12/30/18 Oxybutynin Chloride (OXYBUTYNIN CHLORIDE) 5 Mg Tablet, 5 MG PO TID for overactive bladder, TAB 12/30/18 Ondansetron Hcl (ZOFRAN) 4 Mg Tablet, 1 TAB PO PRN Q4HRS PRN for NAUSEA/VOMITING, #20 TAB 12/30/18 Nicotine (NICODERM CQ 14mg) 1 Each Patch.td24, 1 PATCH TP DAILY for stop smoking, #14 PATCH 12/30/18 Loratadine (LORATADINE) 10 Mg Tablet, 1 TAB PO DAILY for allergies, #30 TAB 5 Refills 12/30/18 Ipratropium/Albuterol Sulfate (DUONEB 0.5-3(2.5) MG/3 ML) 3 Ml Ampul.neb, 3 ML NEB TID for congestion, EACH 12/30/18 Guaifenesin (MUCINEX) 600 Mg Tablet.er, 1 TAB PO BID for cough; congestion, #14 TAB 12/30/18 Ferrous Sulfate (FERROUS SULFATE) 325 Mg Tablet, 325 MG PO DAILY for nutritional supplement, TAB 12/30/18 Famotidine (FAMOTIDINE) 20 Mg Tablet, 20 MG PO BID for Indigestion, TAB 12/30/18 Duloxetine Hcl (CYMBALTA) 30 Mg Capsule.dr, 30 MG PO DAILY for Depression, CAP 12/30/18 Baclofen (BACLOFEN) 20 Mg Tablet, 20 MG PO QID for MUSCLE RELAXER, #30 TAB 0 Refills 12/30/18 Apixaban (ELIQUIS) 5 Mg Tablet, 5 MG PO BID for factor V, TAB 12/30/18 Alprazolam (ALPRAZOLAM) 0.5 Mg Tablet, 1 TAB PO HS for Anxiety, #30 TAB 12/30/18 Acetaminophen (TYLENOL) 325 Mg Tablet, 650 MG PO PRN Q4HRS PRN for MILD PAIN / TEMP, TAB 12/30/18 YOLI MEJIA MD Jun 26, 2019 11:14
[2019-06-26] MEDS ORDERED: NYST100054 PO (11:26)
--- NOTE | 2019-06-26 11:44 | DS ---
DATE OF DISCHARGE: HOSPITAL COURSE: The patient is a 43-year-old female patient, a resident at [facility] in [place], who was admitted yet again with another episode of severe sepsis. She was also hypoxic, febrile. She was evaluated. She was also encephalopathic. She was [facility], where she was extensively investigated. She was found to have pneumonia, as well as UTI, was admitted to the ICU, was started on IV fluid, IV Levophed and IV antibiotic. Eventually, her urine culture has grown Klebsiella pneumoniae. Her blood culture has grown coagulase-negative Staph, resistant to oxacillin. She gradually stabilized. Her Levophed was discontinued and she was seen in consultation by the Infectious Disease specialist, the plant care worker. As she has difficult vascular access, we did consult the surgeon and had a Port-A-Cath placed successfully; however, it was complicated by pneumothorax, for which has a chest tube placed and also we consulted the urologist and had had a suprapubic catheter placed by interventional radiologist. When I saw her today, she was resting, slightly propped up in bed, in no apparent respiratory distress. She continued to have left-sided chest pain but denied any cough, phlegm, or hemoptysis. Denied any chills, rigors, or fever. PHYSICAL EXAMINATION: GENERAL: When I examined her, she was pale, cachectic but no jaundice, cyanosis, or thyromegaly. No jugular venous distension. No limb edema. VITAL SIGNS: Her heart rate was 93, blood pressure was 98/58, temperature was 97.6, respiratory rate 20, and oxygen saturation was 94%. HEAD, EYES, EARS, NOSE, AND THROAT: Normocephalic, atraumatic. NECK: Supple. HEART: Showed normal first and second heart sounds. No gallop, rub, or murmur. CHEST: Clear to auscultation. No crepitation or rhonchi. ABDOMEN: Distended, scaphoid, soft with suprapubic catheter in place. NEUROLOGIC: She was sleepy, but arousable. All cranial nerves intact. She has functional quadriplegia with neurogenic bladder, requiring suprapubic catheter. She has also large sacrococcygeal decubitus ulcer. Her intake over the last 24 hours was 400, output was 2375. LABORATORY DATA: Her most recent lab work showed a white cell count of 8000, hemoglobin 11, hematocrit 35, MCV 70, and platelet count 324,000. Her serum sodium was 141, potassium 3.7, chloride 105, bicarbonate 26, anion gap of 10, BUN 6, creatinine 0.4, estimated GFR was 172 mL per minute. Her glucose was 86, calcium was 8.8. Total bilirubin, AST, ALT, alkaline phosphatase were normal. Total protein was 6.8, albumin was 2.6. DISCHARGE MEDICATIONS: She was discharged back to [facility] in [place] to continue on apixaban 5 mg twice a day, Mycelex one applicator vaginally at bedtime, OxyContin 10 mg twice a day, metoprolol tartrate 12.5 mg twice a day, albuterol/ipratropium for DuoNeb 4 times a day, multivitamin 1 tablet once a day, potassium chloride 40 mEq once a day, nystatin suspension swish and swallow 4 times a day, magnesium sulfate, alprazolam 0.5 mg at bedtime, lactobacillus rhamnosus 1 capsule twice a day, dantrolene sodium 75 mg 4 times a day, Flexeril 10 mg 3 times a day, oxybutynin 5 mg 3 times a day, famotidine 20 mg twice a day, duloxetine 30 mg daily, ferrous sulfate 325 mg daily, oxycodone/APAP 5/325 one tablet every 4 hours, Tylenol 650 mg every 4 hours. FINAL DISCHARGE DIAGNOSES: 1. Severe sepsis, lactic acidosis and hypotension, resolved. She is off Levophed. 2. She has healthcare-associated pneumonia with urinary tract infection with growth of Klebsiella pneumoniae, as well as Escherichia coli. 3. Chronic sacrococcygeal decubitus ulcer. 4. Progressive multiple sclerosis with functional quadriplegia and neurogenic bladder, requiring suprapubic catheter. 5. Neurogenic bladder, status post suprapubic catheter placement. 6. Difficult vascular access, status post Port-A-Cath placement, complicated by left-side pneumothorax. Her left lung has completely expanded and her chest tube was removed. 7. History of Clostridium difficile colitis, methicillin-resistant Staphylococcus aureus, vancomycin-resistant Enterococcus infection. 8. Chronic obstructive pulmonary disease. 9. Factor V Leiden without any deep vein thrombosis or pulmonary emboli. YOLI MEJIA MD DR: Clari JOB#: [id number] / [id number]
--- NOTE | 2019-06-26 13:58 | PDOC ---
PULMONARY PROGRESS NOTES Subjective sob better, no cough, Vitals Vital Signs Date Time Temp Pulse Resp B/P (MAP) Pulse Ox O2 Delivery O2 Flow Rate FiO2 06/26/19 12:14 95 Room Air 06/26/19 10:48 97.6 93 20 98/58 (71) 97.6 06/26/19 08:00 2.0 ROS: No Nausea General: Alert Lungs: Other (decrease bases,) Cardiovascular: S1, S2 Abdomen: Soft, Non-tender Neuro Exam: Alert Extremities: No Edema Skin: Warm, Dry (resp effort imporved somehwat after fluids.) Medications Active Scripts Medications Dose Route/Sig Max Daily Dose Days Date Category Augmentin 875-125 Tablet (Amoxicillin/Potassium Clav) 1 Each Tablet 1 Tab PO BID 5 05/29/19 Rx Oxycodone HCl ER (Oxycodone HCl) 10 Mg Tab.er.12h 10 Mg PO BID 05/24/19 Reported Dantrolene Sodium 25 Mg Capsule 75 Mg PO QID 05/24/19 Reported Acidophilus (Lactobacillus Acidophilus) 1 Each Tab.chew 2 Each PO BID 05/24/19 Reported Thera Tablet (Multivitamin with Folic Acid) 400 Mcg Tablet 400 Mcg PO DAILY 05/24/19 Reported Sennosides 8.6 Mg Tablet 8.6 Mg PO DAILY 05/24/19 Reported Percocet 5-325 Mg Tablet (Oxycodone/Acetaminophen) 1 Each Tablet 1 Tab PO PRN Q4HRS PRN 05/24/19 Reported Potassium Chloride 20 Meq Tablet.er 40 Meq PO DAILY 12/30/18 Reported Oxybutynin Chloride 5 Mg Tablet 5 Mg PO TID 12/30/18 Reported Zofran (Ondansetron Hcl) 4 Mg Tablet 1 Tab PO PRN Q4HRS PRN 12/30/18 Reported NICODERM CQ 14mg (Nicotine) 1 Each Patch.td24 1 Patch TP DAILY 12/30/18 Reported Loratadine 10 Mg Tablet 1 Tab PO DAILY 12/30/18 Reported Duoneb 0.5-3(2.5) Mg/3 Ml (Albuterol/Ipratropium) 3 Ml Ampul.neb 3 Ml NEB TID 12/30/18 Reported Mucinex (Guaifenesin) 600 Mg Tablet.er 1 Tab PO BID 12/30/18 Reported Ferrous Sulfate 325 Mg Tablet 325 Mg PO DAILY 12/30/18 Reported Famotidine 20 Mg Tablet 20 Mg PO BID 12/30/18 Reported Cymbalta (Duloxetine Hcl) 30 Mg Capsule.dr 30 Mg PO DAILY 12/30/18 Reported Baclofen 20 Mg Tablet 20 Mg PO QID 12/30/18 Reported Eliquis (Apixaban) 5 Mg Tablet 5 Mg PO BID 12/30/18 Reported Alprazolam 0.5 Mg Tablet 1 Tab PO HS 12/30/18 Reported Tylenol (Acetaminophen) 325 Mg Tablet 650 Mg PO PRN Q4HRS PRN 12/30/18 Reported Impression . 1. Acute respiratory failure due to pneumonia, septic shock 2. Septic shock. resolved 3. Lactic acidosis secondary to sepsis. resolved 4. Pneumonia, gram-positive, gram-negative. 5. Pyuria. 6. Chronic sacrococcygeal pressure wounds, stage 4. 7. Progressive multiple sclerosis. 8. History of Clostridium difficile. 9. History of methicillin-resistant Staphylococcus aureus. 10.Tobacco dependence. 11. Factor V Leiden mutation.no PE/ DVT 12. Severe PCM 13. Low K, Mg, CORRECTED 14. MS 15. S/P CENTRAL LINE /PTX, RESOLVED 06/11. BLOOD CULTURE Final GRAM POSITIVE COCCI IN CLUSTERS 2 SETS DRAWN, 1 OF 4 POSITIVE Plan . abx per id review cxr, RESOLVED ptx RESP STATUS IS COMPENSATED CHEST TUBE REMOVED DVT AND GI PROPH discussed w NARCISA Shabazz MD Jun 26, 2019 13:58
[2019-06-26 14:48] VITALS: BP 132/83
--- NOTE | 2019-06-26 15:07 | NUR ---
SS following up with discharge planning. Discharge orders received for return to [facility], ; fax [phone]. SS phoned and faxed discharge orders to [facility]. Pt will discharge today and return to [facility]. [facility] arranging stretcher transportation via [facility] and will notify SS with picking machine operator helper time. Pt, pt's family, and pt's RN notified.
--- NOTE | 2019-06-26 15:30 | NUR ---
ATTEMPTED TO GIVE REPORT TO [facility]. LEFT MESSAGE TO CALL BACK TO GET REPORT.
[2019-06-26] MEDS: oxyCODONE/APAP 5/325 1 TAB TABLET PO PRN (15:45)
--- NOTE | 2019-06-26 16:00 | NUR ---
RIGHT IJ CENTRAL LINE DC'D PER ASEPTIC MEASURE. MONITOR REMOVED. AWAITS TRANSPORTATION.
--- NOTE | 2019-06-26 16:50 | NUR ---
TRANSPORTATION HERE AND PATIENT ESCORTED OFF UNIT PER STRETCHER.
--- NOTE | 2019-06-26 17:31 | NUR ---
REPORT GIVEN TO NURSING STAFF.
[2019-06-26] MEDS ORDERED: CLOTRIMAZOLE 1% VAGINAL CREAM 45GM TUBE. VG SCH (21:00)
== END 2019-06-26 16:50 | disposition home or self-care (01) | DRG 853 ==
LOC: ER 23:23 → 1 WEST ICU 06-12 02:11 → 5 SOUTH 06-15 12:10 → 2 NORTH 06-20 16:25
PROVIDERS: ADMIT Internal Medicine; ATTEND Internal Medicine
PROC: 02HV33Z Insertion of Infusion Device into Superior Vena Cava, Percutaneous Approach (ICD-10-PCS; 2019-06-13)
PROC: B548ZZA Ultrasonography of Superior Vena Cava, Guidance (ICD-10-PCS; 2019-06-13)
PROC: 02HV33Z Insertion of Infusion Device into Superior Vena Cava, Percutaneous Approach (ICD-10-PCS; 2019-06-20)
PROC: B548ZZA Ultrasonography of Superior Vena Cava, Guidance (ICD-10-PCS; 2019-06-20)
PROC: B5181ZA Fluoroscopy of Superior Vena Cava using Low Osmolar Contrast, Guidance (ICD-10-PCS; 2019-06-20)
PROC: 0T9B30Z Drainage of Bladder with Drainage Device, Percutaneous Approach (ICD-10-PCS; 2019-06-20)
PROC: 0JH60WZ Insertion of Totally Implantable Vascular Access Device into Chest Subcutaneous Tissue and Fascia, Open Approach (ICD-10-PCS; principal; 2019-06-20 13:00)
PROC: 0W9B30Z Drainage of Left Pleural Cavity with Drainage Device, Percutaneous Approach (ICD-10-PCS; 2019-06-21)
DX: A41.9 Sepsis, unspecified organism (principal); L89.154 Pressure ulcer of sacral region, stage 4; J96.01 Acute respiratory failure with hypoxia; J18.9 Pneumonia, unspecified organism; E43 Unspecified severe protein-calorie malnutrition; R53.2 Functional quadriplegia; R65.21 Severe sepsis with septic shock; D68.51 Activated protein C resistance; G93.40 Encephalopathy, unspecified; J44.0 Chronic obstructive pulmonary disease with (acute) lower respiratory infection; J98.11 Atelectasis; N39.0 Urinary tract infection, site not specified; B96.20 Unspecified Escherichia coli [E. coli] as the cause of diseases classified elsewhere; B96.89 Other specified bacterial agents as the cause of diseases classified elsewhere; B96.1 Klebsiella pneumoniae [K. pneumoniae] as the cause of diseases classified elsewhere; F32.9 Major depressive disorder, single episode, unspecified; F41.9 Anxiety disorder, unspecified; E83.42 Hypomagnesemia; E87.6 Hypokalemia; F17.200 Nicotine dependence, unspecified, uncomplicated; G35 Multiple sclerosis; I10 Essential (primary) hypertension; N31.9 Neuromuscular dysfunction of bladder, unspecified; Z74.01 Bed confinement status; Z79.01 Long term (current) use of anticoagulants; Z86.14 Personal history of Methicillin resistant Staphylococcus aureus infection; Z86.19 Personal history of other infectious and parasitic diseases; Z86.59 Personal history of other mental and behavioral disorders; Z86.711 Personal history of pulmonary embolism; Z86.718 Personal history of other venous thrombosis and embolism; Z87.440 Personal history of urinary (tract) infections
CPT/HCPCS: 32557; 36415; 36556; 51102; 51600; 71045; 76937; 76942; 80048; 80053; 81001; 82962; 83605; 83690; 83735; 83880; 84145; 84484; 85007; 85025; 85027; 85610; 85730; 87040; 87077; 87086; 87186; 87205; 87641; 93005; 94640; 94760; 96361; 96365; 96375; 99152; 99153; A4215; A7015; C1729; C1769; C1788; C1892; C1894; J1100; J1644; J2001; J2020; J2250; J2405; J2543; J2704; J3010; J3475; J3490; J7030; J7120; J7620; 99285-25; G0378

== ENCOUNTER 2020-05-15 18:50 | Inpatient (IN) | payer MEDICARE, OTHER ==
[~2020-05-15] VITALS: Ht 172.7 cm; Wt 69.1 kg
[~2020-05-15 18:50] MED LIST changes: +ACET325T21 PO; +CHOL500050 PO; +CIPR500T94 PO; -DICL100G18 TP; +DICL100G54 TP; +GENT30OI2 TP; -LINE600T PO; +LINE600T12 PO; +MERO1VIA24 IV; +MIRA50TA PO; -MULT1TAB77 PO; +MULT1TAB78 PO; +NYST60PO TP; +OXYB5TAB10 PO; -OXYB5TAB7 PO; +OXYC20TA42 PO; +POTA20TA4 PO; -POTA20TA82 PO
[2020-05-15] MEDS ORDERED: ACETAMINOPHEN 325 MG TABLET. PO ONE (19:30)
[2020-05-15] MEDS ORDERED: IV NORMAL SALINE 1000ML BAG 1,000 ML IV ONE (19:30)
--- NOTE | 2020-05-15 19:31 | PHYS DOC ---
Past Medical History Past Medical History: Anxiety, COPD, Depression, Pneumonia, UTI, Other Additional Past Medical Histor: MS,FACTOR 5,WOUND ON COCCYX Past Surgical History: Other Additional Past Surgical Histo: DEBRIDMENT ON COCCYX; Smoking Status: Former Smoker Alcohol Use: None Drug Use: Marijuana General Adult EDM: Chief Complaint: FEVER HPI: HPI: 44-year-old female bedbound with indwelling Shafer catheter presents for evaluation of fever. [facility] states patient had a fever of greater than 105. They also state the patient has been confused and diaphoretic. Patient's urine over the last few days has been positive for nitrates. Patient has been treated with Cipro. Fever and symptoms started today. Patient was sent to the emergency department for further evaluation and treatment. Patient has no complaints. She denies any headache chest pain cough shortness of breath or abdominal pain. Patient has an indwelling Shafer catheter in place she states was changed 3 or 4 days ago. Patient also has decubitus ulcer right buttocks. Wound appears well cared for. Dressing was clean dry and intact dated and appears to be changed today - dated 05/15/20. Review of Systems: Review of Systems: Constitutional: Positive fever Eyes: Denies change in visual acuity. [] HENT: Denies nasal congestion or sore throat. [] Respiratory: Denies cough or shortness of breath. [] Cardiovascular: Denies chest pain or edema. [] GI: Denies abdominal pain, nausea, vomiting, bloody stools or diarrhea. [] : Denies dysuria. [] Musculoskeletal: Denies back pain or joint pain. [] Integument: Denies rash. [] Neurologic: Denies headache, focal weakness or sensory changes. [] Endocrine: Denies polyuria or polydipsia. [] Lymphatic: Denies swollen glands. [] Psychiatric: Denies depression or anxiety. [] Heart Score: Risk Factors: Risk Factors: DM, Current or recent (<one month) smoker, HTN, HLP, family history of CAD, obesity. Risk Scores: Score 0 - 3: 2.5% MACE over next 6 weeks - Discharge Home Score 4 - 6: 20.3% MACE over next 6 weeks - Admit for Clinical Observation Score 7 - 10: 72.7% MACE over next 6 weeks - Early Invasive Strategies Allergies: Allergies: Allergies Coded Allergies Type Severity Reaction Last Updated Verified I S O L A T I O N *CONTACT* Allergy Unknown 01/02/19 Yes No Known Medication Allergies Allergy Unknown 04/28/17 Yes Physical Exam: PE: Constitutional: Well developed, well nourished, no acute distress, non-toxic appearance. [] HENT: Normocephalic, atraumatic, bilateral external ears normal, oropharynx mo ist, no oral exudates, nose normal. [] Eyes: EOMI, conjunctiva normal, no discharge. [] Neck: Normal range of motion, no tenderness, supple, no stridor. [] Cardiovascular:tachycardia Lungs & Thorax: no respiratory distress Abdomen: Bowel sounds normal, soft, no tenderness, no masses, Skin: Warm, dry, no erythema, no rash. [] Back: No tenderness, no CVA tenderness. [] Neurologic: Alert and oriented X 3, normal motor function, normal sensory function, no focal deficits noted. [] Psychologic: Affect normal, judgement normal, mood normal. [] EKG: EKG: time 1925hrs EKG - sinus tachycardia rate 110 no stemi[] Radiology/Procedures: Radiology/Procedures: [] Impression: HISTORY: Fever AP view was taken of the chest. There is elevation of the right diaphragm. The patient is rotated to the right. Left Port-A-Cath is unchanged. No new infiltrates are noted. There is been little change compared to the study from April 08. IMPRESSION: 1. Elevated right diaphragm. 2. Port-A-Cath remains in good position. 3. No left lung infiltrates. Electronically signed by: Dariel Kohli MD (05/15/2020 7:50 PM) [facility] Course & Med Decision Making: Course & Med Decision Making Pertinent Labs and Imaging studies reviewed. (See chart for details) [] Patient was evaluated for chief complaint. Work-up consisted of laboratory analysis and radiologic imaging. Results reviewed. Patient's urine positive for nitrates. Patient had been treated outpatient with Cipro. Patient febrile prior to arrival. Patient was treated with Tylenol. Patient treatment included 1 L IV fluids which was then changed to NS 100 cc an hour. Patient was treated with 1 g Rocephin. Patient admitted to the hospitalist for further evaluation and treatment. Winnie Disclaimer: Winnie Disclaimer: This electronic medical record was generated, in whole or in part, using a voice recognition dictation system. Departure Departure Impression: Primary Impression: Shafer catheter in place Additional Impression: Urinary tract infection Disposition: ADMITTED INPATIENT Admitting Physician: Madi. Eisenberg Condition: STABLE Referrals: YOLI MEJIA MD (PCP) Justicifation of Admission Dx: Justifications for Admission: Justification of Admission Dx: Yes Sepsis: Infection DONNIE MEHTA I DO May 15, 2020 19:31
--- NOTE | 2020-05-15 19:54 | RAD ---
AP chest. HISTORY: Fever AP view was taken of the chest. There is elevation of the right diaphragm. The patient is rotated to the right. Left Port-A-Cath is unchanged. No new infiltrates are noted. There is been little change compared to the study from April 08. IMPRESSION: 1. Elevated right diaphragm. 2. Port-A-Cath remains in good position. 3. No left lung infiltrates. Electronically signed by: Dariel Kohli MD (05/15/2020 7:50 PM) [facility]
[2020-05-15 19:57] LABS: BASO % 0 % (0-3); EOS # 0.1 x10^3/uL (0.0-0.7); EOS % 1 % (0-3); HEMATOCRIT 31.7 % (36.0-47.0); HEMOGLOBIN 10.3 g/dL (12.0-15.5); LYMPH # 1.1 x10^3/uL (1.0-4.8); LYMPH % 9 % (24-48); MEAN CORPUSCULAR HEMOGLOBIN 23 pg (25-35); MEAN CORPUSCULAR HGB CONC 33 g/dL (31-37); MEAN CORPUSCULAR VOLUME 69 fL (79-100); MONO # 0.9 x10^3/uL (0.0-1.1); MONO % 8 % (0-9); NEUT # 9.6 x10^3/uL (1.8-7.7); NEUT % 82 % (31-73); PLATELET COUNT 288 x10^3/uL (140-400); RED BLOOD COUNT 4.59 x10^6/uL (3.50-5.40); RED CELL DISTRIBUTION WIDTH 19.8 % (11.5-14.5); WHITE BLOOD COUNT 11.8 x10^3/uL (4.0-11.0)
[2020-05-15 19:58] LABS: BILIRUBIN,URINE NEGATIVE (NEG); CLARITY,URINE CLEAR; COLOR,URINE YELLOW; NITRITE,URINE POSITIVE (NEG); PROTEIN,URINE NEGATIVE (NEG-TRACE); UROBILINOGEN,URINE 0.2 mg/dL (0.2 mg/dL)
[2020-05-15 20:07] LABS: CALCIUM 8.2 mg/dL (8.5-10.1); CREATININE 0.5 mg/dL (0.6-1.0); GFR 132.8; POTASSIUM 3.7 mmol/L (3.5-5.1)
[2020-05-15 20:10] LABS: BACTERIA,URINE MANY /HPF (0-FEW); SQUAMOUS EPITHELIAL CELL,UR MOD /LPF; WBC,URINE >40 /HPF (0-4)
[2020-05-15 20:11] LABS: RBC,URINE 0 /HPF (0-2)
[2020-05-15 20:23] LABS: PLT ESTIMATE ADEQUATE (ADEQUATE)
[2020-05-15 20:24] LABS: ALBUMIN 2.1 g/dL (3.4-5.0); ALBUMIN/GLOBULIN RATIO 0.5 (1.0-1.7); TOTAL BILIRUBIN 0.4 mg/dL (0.2-1.0); TOTAL PROTEIN 6.3 g/dL (6.4-8.2)
[2020-05-15 20:28] LABS: ANISOCYTOSIS SLIGHT; HYPOCHROMIA MOD; MICROCYTOSIS MOD; POIKILOCYTOSIS SLIGHT
[2020-05-15] MEDS ORDERED: cefTRIAXone IV Push 1 GM VIAL. IVP ONE (20:30)
[2020-05-15] MEDS ORDERED: ONDANSETRON PF 4 MG/2 ML VIAL. IV PRN (20:30)
[2020-05-15] MEDS: ACETAMINOPHEN 325 MG TABLET. PO PRN (20:50)
[2020-05-15 22:50] VITALS: BP 98/60
--- NOTE | 2020-05-15 23:58 | NUR ---
Pt arrived to unit per cart, pt assisted to bed with assist of 3, pt oriented to surroundings tele monitor applied vs obtained and stable poc explained pt denied pain at time of assessment will resume care and continue to monitor pt. Soft touch call light placed in reach.
[2020-05-16] MEDS ORDERED: COLL30OI TP (01:54)
[2020-05-16] MEDS ORDERED: OXYC-325 PO (01:54)
[2020-05-16] MEDS ORDERED: MUPI22OI2 TP (01:54)
[2020-05-16 02:27] VITALS: BP 127/71
--- NOTE | 2020-05-16 06:10 | EKG ---
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
[2020-05-16 07:00] VITALS: BP 103/59
[2020-05-16] MEDS: ACETAMINOPHEN 325 MG TABLET. PO PRN (07:35)
--- NOTE | 2020-05-16 08:49 | NUR ---
SS following for discharge planning. SS reviewed pt chart and discussed with pt RN. Pt is LTC resident from [facility], ; fax [phone]. SS contacted [facility] and was notified that pt will need COVID19 test prior to returning. Pt's RN notified.
[2020-05-16] MEDS ORDERED: POLYETHYLENE GLYCOL 3350 17 GM PACKET. PO PRN (09:45)
[2020-05-16] MEDS ORDERED: oxyCODONE/APAP 5/325 1 TAB TABLET PO PRN ×2 (09:45)
[2020-05-16] MEDS ORDERED: MUPIROCIN 2 % NASAL OINTMENT 22GM TUBE. TP PRN (09:45)
--- NOTE | 2020-05-16 10:13 | PN ---
DATE: 05/16/2020 SUBJECTIVE: The patient is resting, slightly propped up in bed, no apparent distress. She is on low air-loss mattress. She was awake, alert, responding appropriately. On questioning her, denied any complaint. The nursing staff did not voice any concerns that she has generally uneventful night. PHYSICAL EXAMINATION: GENERAL: When I examined her, she was pale, cachectic, no jaundice, cyanosis or thyromegaly. No jugular venous distention. No lower limb edema. VITAL SIGNS: Her heart rate was 104, blood pressure 103/59, temperature was 98.9, respiratory rate was 18 and oxygen saturation was 95% on room air. HEAD, EYES, EARS, NOSE AND THROAT: Showed normocephalic, atraumatic. NECK: Supple. CARDIAC: Normal first and second heart sounds. No gallop or murmur. CHEST: Clear to auscultation. No crepitation or rhonchi. ABDOMEN: Scaphoid, soft with suprapubic catheter. NEUROLOGIC: She was definitely more awake, alert, responding appropriately. All cranial nerves intact. She has functional quadriplegia with fixed flexion contraction of all 4 limbs. She has large sacrococcygeal decubitus ulcer. She has suprapubic catheter for neurogenic bladder. LABORATORY DATA: She has no lab work done this morning. Her intake and output are incompletely recorded. ASSESSMENT: 1. Sepsis, most likely due to urinary tract infection. 2. Progressive systemic sclerosis with functional quadriplegia. 3. Neurogenic bladder requiring suprapubic catheter. 4. Severe protein-calorie malnutrition. 5. Chronic obstructive pulmonary disease. 6. Factor V Leiden, for which she is on apixaban. PLAN: My plan is to continue with IV Rocephin. Continue with IV fluid. We will check her COVID to make sure that she is not infected. We will repeat her lab works tomorrow and adjust antibiotic according to the result of culture and sensitivity. YOLI MEJIA MD DR: JUJU/ronit JOB#: [id number] / [id number]
[2020-05-16] MEDS ORDERED: ONDANSETRON ODT 4 MG TAB.RAPDIS. PO PRN (10:30)
--- NOTE | 2020-05-16 10:51 | HP ---
ADMIT DATE: 05/15/2020 HISTORY OF PRESENT ILLNESS: The patient is a 44-year-old female patient, a resident at [facility], who was noted to be febrile and lethargic. Her temperature was up to 105 degrees Fahrenheit. She was noted to be confused and diaphoretic. We actually attempted to treat her there and sent urine for culture and sensitivity and started empirically on ciprofloxacin. Unfortunately, her temperature persisted and her symptoms have worsened such that she was transferred to [facility] Emergency Room, where she was evaluated. She denied any other complaints, in particular denied any headache, chest pain, cough, phlegm, or hemoptysis. She does have a suprapubic catheter in place, it was changed about 3-4 days ago. She does have also sacral decubitus ulcer; however, the wound seems to have well cared for. Her dressing was dry, clean, and intact and was changed on the same day she arrived here. She was evaluated in the Emergency Room. She was found to have mild leukocytosis. Her chemistry was unremarkable. Her lactic acid was only 0.8. Urinalysis showed the urine was positive for nitrite and there was large amount of leukocyte esterase and there were more than 40 wbc's and there was large amount of bacteria. Her chest x-ray showed elevated right diaphragm and Port-A-Cath remained in good place, no left lung infiltrate. The patient was admitted with sepsis and urinary tract infection. PAST MEDICAL HISTORY: Significant for progressive multiple sclerosis with functional quadriplegia. She is known to have factor V Leiden mutation, for which she is on Xarelto. She herself has never had any DVT or pulmonary emboli. Her father and her daughter are positive for factor V Leiden and do have deep vein thrombosis. She also has chronic obstructive pulmonary disease, although unfortunately, she continued to smoke. She has severe protein-calorie malnutrition, neurogenic bladder requiring suprapubic catheter and does have recurrent urinary tract infection, has stage 4 sacrococcygeal decubitus ulcer. She has had a Port-A-Cath placed successfully; however, it was complicated by pneumothorax that required chest tube placement. PAST SURGICAL HISTORY: Significant for debridement of her coccyx as well as Port-A-Cath placement and suprapubic catheter placement. ALLERGIES: She has no known drug allergies. FAMILY HISTORY: Positive for factor V Leiden in her daughter and her father. SOCIAL HISTORY: She is currently a resident at [facility] in [place]. She continued to smoke. She does not drink alcohol or use any recreational drugs. MEDICATIONS: She is currently on the following medications: She is on loratadine 10 mg once a day, dantrolene 75 mg 4 times a day, baclofen 20 mg 4 times a day, ferrous sulfate 325 mg once a day, apixaban 5 mg twice a day, oxycodone extended release 20 mg twice a day. She is on Percocet 5/325 one tablet every 4 hours and oxycodone/APAP 5/325 two tablets every 4 hours as needed for pain rated 6/10, acetaminophen 650 mg every 4 hours, duloxetine 30 mg once a day, alprazolam 0.5 mg at bedtime, potassium chloride 40 mEq once a day, lactobacillus acidophilus 1 capsule twice a day, polyethylene glycol 17 grams daily p.r.n. for constipation, senna 1 tablet once a day, ondansetron 4 mg every 4 hours as needed, famotidine 20 mg twice a day, mupirocin ointment applied topically twice a day, Santyl ointment applied topically daily, oxybutynin chloride 5 mg 3 times a day, Myrbetriq 50 mg daily, cholecalciferol vitamin D 1250 mcg once a day, multivitamin with folic acid 1 tablet once a day. REVIEW OF SYSTEMS: As per history of present illness. PHYSICAL EXAMINATION: GENERAL: On arrival to the Emergency Room, she looked well and was clearly in no apparent distress. She was pale, cachectic with no jaundice, cyanosis, or thyromegaly. No jugular venous distention. No limb edema. VITAL SIGNS: Her heart rate was 109, blood pressure was 96/59, temperature was 99.8, respiratory rate was 16, and oxygen saturation was 94%. HEAD, EYES, EARS, NOSE, AND THROAT: Normocephalic, atraumatic. NECK: Supple. HEART: Showed normal first and second heart sounds. No gallop or murmur. CHEST: Clear to auscultation. No crepitation or rhonchi. She has a Port-A-Cath in the left infraclavicular area. ABDOMEN: Scaphoid, soft, nontender with suprapubic catheter in place. NEUROLOGIC: She was awake, alert, responding appropriately. All her cranial nerves intact. She has functional quadriplegia with a fixed flexion contraction of all 4 limbs. She has large stage 4 sacrococcygeal decubitus ulcer. LABORATORY DATA: Her lab work showed a white cell count of 11,800; hemoglobin 10; hematocrit 32; MCV 69; and platelet count of 288,000. Her serum sodium was 137, potassium 3.7, chloride 103, bicarbonate 25, anion gap of 9, BUN 10, creatinine 0.5, estimated GFR was 132 mL per minute. Her glucose 105. Her calcium was 8.2. Total bilirubin, AST, ALT, alkaline phosphatase were normal. Total protein was 6.3, albumin was 2.1. PLAN: To continue with IV fluid, continue with IV antibiotic. I did order COVID test. We will repeat all her labs again and await the results of the blood and urine culture and sensitivity. YOLI MEJIA MD DR: JUJU/ronit JOB#: [id number] / [id number]
[2020-05-16 10:57] VITALS: BP 91/52
[2020-05-16] MEDS: IV NORMAL SALINE 1000ML BAG 1,000 ML IV SCH ×2 (11:11→20:52)
[2020-05-16] MEDS: FAMOTIDINE 20 MG TABLET. PO SCH ×2 (11:13→20:51)
[2020-05-16] MEDS: LACTOBACILLUS RHAMNOSUS GG 1 CAPSULE. PO SCH ×2 (11:13→20:50)
[2020-05-16] MEDS: MULTIVITAMIN with MINERAL TABLET. PO SCH (11:14)
[2020-05-16] MEDS: CETIRIZINE HCL 10 MG TABLET. PO SCH (11:14)
[2020-05-16] MEDS: FERROUS SULFATE 325 MG TABLET. PO SCH (11:14)
[2020-05-16] MEDS: CHOLECALCIFEROL (VITAMIN D3) 1,000 UNIT TABLET PO SCH (11:14)
[2020-05-16] MEDS: SENNOSIDES 8.6 MG TABLET PO SCH (11:14)
[2020-05-16] MEDS: DULoxetine HCL 30 MG CAPSULE.DR PO SCH (11:14)
[2020-05-16] MEDS: POTASSIUM CHLORIDE 20 MEQ TABLET.ER. PO SCH (11:14)
[2020-05-16] MEDS: APIXABAN 5 MG TABLET. PO SCH ×2 (11:15→20:50)
[2020-05-16] MEDS: oxyCODONE ER 10 MG TAB.ER.12H PO SCH ×2 (11:15→20:52)
--- NOTE | 2020-05-16 11:27 | NUR ---
Covid 19 sample obtained.
[2020-05-16] MEDS: BACLOFEN 10 MG TABLET. PO SCH ×3 (13:00→20:50)
[2020-05-16] MEDS: DANTROLENE SODIUM 25 MG CAPSULE PO SCH ×3 (13:00→20:51)
[2020-05-16 15:00] VITALS: BP 108/80
[2020-05-16] MEDS: ANTI-COAG MONITOR BY PHARMACY. MC PRN (15:37)
--- NOTE | 2020-05-16 16:15 | NUR ---
Wound Care Wound Type/Assessment: Pressure ulcers to coccyx and bilateral ischiums Treatment Recommendations/Plan: P500 bed, turn Q2H, pillows for positioning and offloading, air boots. Coccyx and L ischium: Cleanse, pat dry. Cover with aquacel AG and foam Dressings, change Q2-3D R ischium: Cleanse and pat dry. Cover with hydrocolloid. Change every 3 days Education provided: Turning, offloading, pressure ulcer prevention. Notified RN Offloading surface/device: P500 bed, wedge, pillows, air boots Recommended Referrals/Tests: NA Pt had large, soft BM. Brief and michelle changed. Education to patient regarding wearing of brief not recommended while i the hospital. Pt stated she would prefer to wear a brief. On P500 bed. Turned to R side, positioned with pillows, wedge, and air boots. Call light in reach, bed lowered. Addendum: 05/16/20 at 1822 by GILBERT PERALTA RN Follow up 05/22/20
[2020-05-16] MEDS: OXYBUTYNIN CHLORIDE 5 MG TABLET PO SCH ×2 (17:42→20:51)
[2020-05-16] MEDS: ASCORBIC ACID 500 MG TABLET PO SCH (17:42)
[2020-05-16] MEDS: ALPRAZolam 0.5 MG TABLET PO SCH ×2 (17:42→20:51)
[2020-05-16 19:00] VITALS: BP 126/89
--- NOTE | 2020-05-16 19:10 | NUR ---
Assessment completed vss poc explained pt denied pain at this time will resume care and continue to monitor pt. Call light in reach of pt
[2020-05-16] MEDS ORDERED: cefTRIAXone IV Push 1 GM VIAL. IVP SCH (21:00)
[2020-05-16 22:55] VITALS: BP 136/65
[2020-05-17] MEDS: ACETAMINOPHEN 325 MG TABLET. PO PRN ×2 (02:15→19:32)
[2020-05-17 02:21] VITALS: BP 98/69
[2020-05-17 05:14] LABS: HEMATOCRIT 30.5 % (36.0-47.0); HEMOGLOBIN 9.9 g/dL (12.0-15.5); RED BLOOD COUNT 4.45 x10^6/uL (3.50-5.40); RED CELL DISTRIBUTION WIDTH 19.5 % (11.5-14.5); WHITE BLOOD COUNT 5.3 x10^3/uL (4.0-11.0)
[2020-05-17] MEDS: IV NORMAL SALINE 1000ML BAG 1,000 ML IV SCH ×2 (06:11→17:37)
[2020-05-17 06:19] LABS: ALBUMIN 1.9 g/dL (3.4-5.0); ALBUMIN/GLOBULIN RATIO 0.5 (1.0-1.7); CALCIUM 7.6 mg/dL (8.5-10.1); CREATININE 0.5 mg/dL (0.6-1.0); GFR 132.8; POTASSIUM 3.5 mmol/L (3.5-5.1); TOTAL BILIRUBIN 0.2 mg/dL (0.2-1.0)
[2020-05-17 07:00] VITALS: BP 80/50
[2020-05-17] MEDS ORDERED: COLLAGENASE CLOSTRIDIUM HIST TP SCH (09:00)
[2020-05-17] MEDS ORDERED: NON FORMULARY ITEM (Mirabegron (Myrbetriq) 50 MG) PO SCH (09:00)
[2020-05-17] MEDS: MULTIVITAMIN with MINERAL TABLET. PO SCH (09:58)
[2020-05-17] MEDS: ASCORBIC ACID 500 MG TABLET PO SCH (09:58)
[2020-05-17] MEDS: LACTOBACILLUS RHAMNOSUS GG 1 CAPSULE. PO SCH ×2 (09:58→21:02)
[2020-05-17] MEDS: CETIRIZINE HCL 10 MG TABLET. PO SCH (09:58)
[2020-05-17] MEDS: OXYBUTYNIN CHLORIDE 5 MG TABLET PO SCH ×3 (09:58→21:02)
[2020-05-17] MEDS: APIXABAN 5 MG TABLET. PO SCH ×2 (09:58→21:02)
[2020-05-17] MEDS: FERROUS SULFATE 325 MG TABLET. PO SCH (09:58)
[2020-05-17] MEDS: DULoxetine HCL 30 MG CAPSULE.DR PO SCH (09:58)
[2020-05-17] MEDS: FAMOTIDINE 20 MG TABLET. PO SCH ×2 (09:58→21:02)
[2020-05-17] MEDS: CHOLECALCIFEROL (VITAMIN D3) 1,000 UNIT TABLET PO SCH (09:58)
[2020-05-17] MEDS: SENNOSIDES 8.6 MG TABLET PO SCH (09:58)
[2020-05-17] MEDS: BACLOFEN 10 MG TABLET. PO SCH ×4 (09:59→21:02)
[2020-05-17] MEDS: oxyCODONE ER 10 MG TAB.ER.12H PO SCH ×2 (09:59→21:00)
[2020-05-17] MEDS: DANTROLENE SODIUM 25 MG CAPSULE PO SCH ×4 (09:59→21:02)
[2020-05-17] MEDS: POTASSIUM CHLORIDE 20 MEQ TABLET.ER. PO SCH (09:59)
--- NOTE | 2020-05-17 10:34 | PN ---
DATE: 05/17/2020 SUBJECTIVE: The patient is resting slightly propped up in bed, in no apparent distress. She is awake, alert. Continues to complain of pain in her left shoulder. She did spike her temperature again last night at 101.7; however, her white cell count is down from 11,800 to today's 5300. She did have urine and blood cultures and both are still pending at the time of this dictation. PHYSICAL EXAMINATION: GENERAL: When I examined her, she was pale, not jaundiced or cyanosed. No lymphadenopathy. No thyromegaly. No jugular venous distention. No lower limb edema. VITAL SIGNS: Her heart rate was 80, blood pressure was 80/50, temperature was 97.8, respiratory rate was 18 and oxygen saturation was 95%. HEAD, EYES, EARS, NOSE AND THROAT: Normocephalic, atraumatic. NECK: Supple. HEART: Showed normal first and second heart sounds. No gallop or murmur. CHEST: Clear to auscultation. No crepitation or rhonchi. ABDOMEN: Scaphoid, soft. Suprapubic catheter in place. NEUROLOGICAL: She was awake, alert, responding appropriately. All cranial nerves intact. She has actually functional quadriplegia with marked muscle wasting and fixed flexion contracture. SKIN: She has sacrococcygeal decubitus ulcer. Her intake was incompletely recorded, output was 1250. LABORATORY DATA: Her lab work this morning showed a white cell count down to 5300, hemoglobin 10, hematocrit 30, MCV 69 and platelet count 238,000. Her chemistry showed a serum sodium 138, potassium 3.5, chloride 106, bicarbonate 24, anion gap of 8, BUN 7, creatinine 0.5, estimated GFR was 132 mL per minute, her glucose was 76, calcium was 7.6. Total bilirubin, AST, ALT, alkaline phosphatase were normal. Total protein 6. Albumin was 1.9. ASSESSMENT: 1. Sepsis, likely due to urinary tract infection. Urine culture is still pending at the time of this dictation. 2. Progressive multiple sclerosis with functional quadriplegia. 3. Neurogenic bladder, requiring suprapubic catheter. 4. Severe protein-calorie malnutrition. 5. Chronic obstructive pulmonary disease. 6. Factor V Leiden for which she is on apixaban. PLAN: Continue IV Rocephin. Continue IV fluid. She was swabbed for COVID-19, the result of which is still pending. YOLI MEJIA MD DR: JUJU/ronit JOB#: [id number] / [id number]
[2020-05-17 10:55] VITALS: BP 81/52
[2020-05-17] MEDS: ANTI-COAG MONITOR BY PHARMACY. MC PRN (13:06)
[2020-05-17 15:00] VITALS: BP 106/61
--- NOTE | 2020-05-17 15:19 | PDOC ---
Infectious Disease Note Vital Sign Vital Signs Vital Signs Date Time Temp Pulse Resp B/P (MAP) Pulse Ox O2 Delivery O2 Flow Rate FiO2 05/17/20 14:17 94 Room Air 1.0 05/17/20 10:55 97.8 102 18 81/52 (62) 97.8 Labs Lab Laboratory Tests Test 05/17/20 05:00 White Blood Count 5.3 x10^3/uL (4.0-11.0) Red Blood Count 4.45 x10^6/uL (3.50-5.40) Hemoglobin 9.9 g/dL (12.0-15.5) Hematocrit 30.5 % (36.0-47.0) Mean Corpuscular Volume 69 fL (79-100) Mean Corpuscular Hemoglobin 22 pg (25-35) Mean Corpuscular Hemoglobin Concent 33 g/dL (31-37) Red Cell Distribution Width 19.5 % (11.5-14.5) Platelet Count 238 x10^3/uL (140-400) Sodium Level 138 mmol/L (136-145) Potassium Level 3.5 mmol/L (3.5-5.1) Chloride Level 106 mmol/L (98-107) Carbon Dioxide Level 24 mmol/L (21-32) Anion Gap 8 (6-14) Blood Urea Nitrogen 7 mg/dL (7-20) Creatinine 0.5 mg/dL (0.6-1.0) Estimated GFR (Cockcroft-Gault) 132.8 BUN/Creatinine Ratio 14 (6-20) Glucose Level 76 mg/dL (70-99) Calcium Level 7.6 mg/dL (8.5-10.1) Total Bilirubin 0.2 mg/dL (0.2-1.0) Aspartate Amino Transf (AST/SGOT) 16 U/L (15-37) Alanine Aminotransferase (ALT/SGPT) 10 U/L (14-59) Alkaline Phosphatase 37 U/L (46-116) Total Protein 6.0 g/dL (6.4-8.2) Albumin 1.9 g/dL (3.4-5.0) Albumin/Globulin Ratio 0.5 (1.0-1.7) Micro Microbiology 05/15/20 Urine Culture - Final, Complete 05/15/20 Blood Culture - Final, Complete Objective Assessment Sepsis despite Rocephin Fever Hypotension chronic martini Wounds appear clean H/o VRE/MRSA/PSA/c-diff Plan Plan of Care Change SP and repeat UA C and S Blood cults times two Begin Meroepnem/Dapto (CXR clear)/zyvox CXR F/u COVID F/u labs in am D/w nursing # [id number] GARRY HUNTER MD May 17, 2020 15:19
[2020-05-17] MEDS: DAPTOmycin (GENERIC) IVPB 360 MG in IV NORMAL SALINE 50ML 50 ML IV SCH (17:39)
[2020-05-17] MEDS: MEROPENEM 500 MG in IV NORMAL SALINE 50ML 50 ML IV SCH (17:39)
[2020-05-17 19:20] VITALS: BP 136/67
[2020-05-17 20:33] LABS: BILIRUBIN,URINE NEGATIVE (NEG); CLARITY,URINE CLOUDY; COLOR,URINE YELLOW; NITRITE,URINE POSITIVE (NEG); PROTEIN,URINE NEGATIVE (NEG-TRACE); UROBILINOGEN,URINE 0.2 mg/dL (0.2 mg/dL)
[2020-05-17 20:51] LABS: BACTERIA,URINE MODERATE /HPF (0-FEW); RBC,URINE 20-40 /HPF (0-2); SQUAMOUS EPITHELIAL CELL,UR MOD /LPF; WBC,URINE >40 /HPF (0-4); YEAST,URINE PRESENT /HPF
[2020-05-17] MEDS: ALPRAZolam 0.5 MG TABLET PO SCH (21:02)
[2020-05-17] MEDS: LINEZOLID 600 MG TABLET PO SCH (21:02)
--- NOTE | 2020-05-17 21:50 | NUR ---
UPDATED DR SHAH. HR 130'S , TEMP 102.2, LAST LACTIC ACID WAS 7/8, LUNGS COARSE ALL THROUGH, BP 136/67. DR SAID ALL HAS BEEN ADDRESSED TODAY, JUST CHANGE OUT RAHMAN THEN WITH NEW RAHMAN GET UA. SUPRAPUBIC RAHMAN REMOVED 100CC IN BAG CLOUDY YELLOW. BLOODY COMING FROM RAHMAN HOLE AFTER TAKEN OUT. USING [employer] REPLACED RAHMAN AND INFLATED BALLOON 10CC.TOOK 20 MIN THE RAHMAN DRAINED SIGHTLY WITH BRIGHT RED URINE. PT TOLERATED WITH MIN DISCOMFORT. LCRN
--- NOTE | 2020-05-17 21:50 | CONS ---
DATE OF CONSULTATION: 05/17/2020 LOCATION: The patient is at room #252. REQUESTING PHYSICIAN: Dr. Frankel. REASON FOR CONSULTATION: Sepsis. HISTORY OF PRESENT ILLNESS: The patient is a 44-year-old female who is a detention resident secondary to progressive multiple sclerosis. She does have a history of previous MRSA, VRE, C. diff as well as Pseudomonas. She has chronic wounds and also has a history of previous ESBL infections. She was admitted to [facility]. She had a reported temperature up to 105. She was confused and diaphoretic and on arrival, had white count of 11.8. She received Rocephin. Despite the Rocephin, her blood pressures dropped into the 80s/50s and she had a temperature of 101.7 last evening. Urinalysis was concerning for urinary tract infection; however, urine culture has more than 3 organisms. Blood cultures obtained on the , gram-positive rods suggestive of diphtheroids in 1 of 2 bottles. Currently, she is lying in bed, she feels tired. She does not have her glasses, so she is having difficulty seen. PAST MEDICAL HISTORY: Positive for MRSA, VRE, multidrug-resistant infections including ESBL, history of C. diff, progressive multiple sclerosis, COPD, anorexia, bulimia, depression, anxiety, stage 4 pressure ulcers, factor V Leiden mutation, and history of DVT as well as PEs. PAST SURGICAL HISTORY: Positive for wound debridements and suprapubic catheter placement as well as a Port-A-Cath placement. Also, has a history of pneumothorax and chest tube placement. REVIEW OF SYSTEMS: Otherwise negative. ALLERGIES: No known drug allergies. SOCIAL HISTORY: She is a detention resident. Has a history of tobacco abuse. No alcohol. FAMILY HISTORY: Positive for factor V Leiden in her daughter and her father. CURRENT MEDICATIONS: Included Xanax, Eliquis, vitamin C, baclofen, Rocephin, Zyrtec, dantrolene, Cymbalta, Pepcid, ferrous sulfate, lactobacillus, MiraLax, and senna. PHYSICAL EXAMINATION: VITAL SIGNS: Most recent temperature is 101.7 and currently 97.8, pulse 102, respirations 18, blood pressure 81/52, and satting 94% on 1 liter. CONSTITUTIONAL: She is sitting upright in bed. She looks a little tired, but she is in no acute distress. No gross shortness of air. HEENT: Oral cavity, pharynx was dry. NECK: Supple, no JVD. LUNGS: Decreased in the bases. HEART: S1, S2. ABDOMEN: Soft, nontender, no distention. GENITOURINARY: Suprapubic catheter in place, it is full. EXTREMITIES: Without clubbing or cyanosis. Contracted and thin. SKIN: Warm to touch. NEUROLOGIC: She is alert and appropriate. Port-A-Cath complications. Wounds were not examined secondary to her discomfort and pictures were examined in the chart. LABORATORY VALUES: White count 5.3, hemoglobin 9.9, and platelets of 238. Creatinine 0.5. She had normal liver function study tests. Albumin of 1.9. Glucose of 76. Urinalysis concerning for urinary tract infection, although cultures reviewed in history of present illness. Chest x-ray from the , elevated right diaphragm, no left lung infiltrates. Port-A-Cath remains in good position, little change from 04/08. IMPRESSION: 1. Apparent sepsis despite Rocephin. 2. Fever. 3. Hypotension. 4. Chronic Shafer. 5. Wounds appear to be clean. 6. History of VRE, MRSA, pseudomonas and C. difficile. RECOMMENDATIONS: We will have her suprapubic changed and repeat UA, C and S. Repeat blood cultures x 2. Begin meropenem, daptomycin and Zyvox. Chest x-ray in the morning. Follow up COVID. Labs in the morning. Discussed with nursing. Dr. Frankel, thank you for allowing me to see and participate in this patient's care. Should you have any questions, please do not hesitate to contact me. GARRY HUNTER MD DR: JUDD/ronit JOB#: [id number] / [id number]
[2020-05-17 23:30] VITALS: BP 91/53
[2020-05-18] MEDS: MEROPENEM 500 MG in IV NORMAL SALINE 50ML 50 ML IV SCH ×5 (00:51→23:30)
[2020-05-18] MEDS: IV NORMAL SALINE 1000ML BAG 1,000 ML IV SCH ×3 (02:00→23:30)
[2020-05-18 03:50] VITALS: BP 92/56
[2020-05-18 05:53] LABS: ALBUMIN/GLOBULIN RATIO 0.6 (1.0-1.7); CALCIUM 7.7 mg/dL (8.5-10.1); CREATININE 0.4 mg/dL (0.6-1.0); GFR 171.8; POTASSIUM 4.2 mmol/L (3.5-5.1); TOTAL BILIRUBIN 0.1 mg/dL (0.2-1.0); TOTAL PROTEIN 5.4 g/dL (6.4-8.2)
[2020-05-18 07:00] VITALS: BP 91/55
--- NOTE | 2020-05-18 07:28 | PDOC ---
Infectious Disease Note Subjective Subjective Better this am. NoC/S/N/v/SOA ROS ROS o/w neg Vital Sign Vital Signs Vital Signs Date Time Temp Pulse Resp B/P (MAP) Pulse Ox O2 Delivery O2 Flow Rate FiO2 05/18/20 03:50 97.8 74 21 92/56 (68) 96 Nasal Cannula 2.0 97.8 Physical Exam PHYSICAL EXAM CONSTITUTIONAL: She is sitting upright in bed. She looks better, she is in no acute distress. No gross shortness of air. HEENT: Oral cavity, pharynx was dry. NECK: Supple, no JVD. LUNGS: Decreased in the bases. HEART: S1, S2. ABDOMEN: Soft, nontender, no distention. GENITOURINARY: Suprapubic catheter in place, it is full. EXTREMITIES: Without clubbing or cyanosis. Contracted and thin. SKIN: Warm to touch. NEUROLOGIC: She is alert and appropriate. Port-A-Cath complications. Labs Lab Laboratory Tests Test 05/17/20 20:00 05/18/20 04:45 Urine Collection Type Unknown Urine Color Yellow Urine Clarity Cloudy Urine pH 6.0 (<5.0-8.0) Urine Specific [place] 1.010 (1.000-1.030) Urine Protein Negative mg/dL (NEG-TRACE) Urine Glucose (UA) Negative mg/dL (NEG) Urine Ketones (Stick) Negative mg/dL (NEG) Urine Blood Large (NEG) Urine Nitrite Positive (NEG) Urine Bilirubin Negative (NEG) Urine Urobilinogen Dipstick 0.2 mg/dL (0.2 mg/dL) Urine Leukocyte Esterase Large (NEG) Urine RBC 20-40 /HPF (0-2) Urine WBC >40 /HPF (0-4) Urine Squamous Epithelial Cells Mod /LPF Urine Bacteria Moderate /HPF (0-FEW) Urine Mucus Slight /LPF Urine Yeast Present /HPF Sodium Level 141 mmol/L (136-145) Potassium Level 4.2 mmol/L (3.5-5.1) Chloride Level 107 mmol/L (98-107) Carbon Dioxide Level 22 mmol/L (21-32) Anion Gap 12 (6-14) Blood Urea Nitrogen 7 mg/dL (7-20) Creatinine 0.4 mg/dL (0.6-1.0) Estimated GFR (Cockcroft-Gault) 171.8 BUN/Creatinine Ratio 18 (6-20) Glucose Level 102 mg/dL (70-99) Calcium Level 7.7 mg/dL (8.5-10.1) Total Bilirubin 0.1 mg/dL (0.2-1.0) Aspartate Amino Transf (AST/SGOT) 22 U/L (15-37) Alanine Aminotransferase (ALT/SGPT) 10 U/L (14-59) Alkaline Phosphatase 42 U/L (46-116) Total Protein 5.4 g/dL (6.4-8.2) Albumin 2.0 g/dL (3.4-5.0) Albumin/Globulin Ratio 0.6 (1.0-1.7) Micro Microbiology 05/15/20 Urine Culture - Final, Complete 05/15/20 Blood Culture - Final, Complete Objective Assessment Sepsis despite Rocephin - clinically looks better Fever Hypotension - better chronic SP martini - changed this am Wounds appear clean H/o VRE/MRSA/PSA/c-diff Plan Plan of Care Repeat UA C and S pending Blood cults times two Begin Meroepnem/Dapto (CXR clear)/zyvox CXR - pending F/u COVID F/u labs in am D/w nursing GARRY HUNTER MD May 18, 2020 07:28
--- NOTE | 2020-05-18 07:43 | RAD ---
EXAM: CHEST AP ONLY INDICATION: Reason: fever / Spl. Instructions: / History: . TECHNIQUE: Single view COMPARISON: 05/15/2020 FINDINGS: Tunneled left chest port from a jugular approach remains present with tip near the cavoatrial junction. The heart size is normal. The great vessels appear unremarkable. There is no hilar or mediastinal mass. Right diaphragmatic elevation persists with associated mild right basilar atelectasis. A right subpulmonic pleural effusion is possible. Lungs otherwise are clear on low volume. There is otherwise no pleural effusion and there is no evidence of a pneumothorax. There are no significant osseous abnormalities. IMPRESSION: Hypoventilatory chest showing right diaphragmatic elevation and mild right basilar atelectasis. Otherwise no acute cardiopulmonary process. Electronically signed by: Carmela Hopkins MD (05/18/2020 7:40 AM) [id number]
[2020-05-18] MEDS: DANTROLENE SODIUM 25 MG CAPSULE PO SCH ×4 (09:19→23:28)
[2020-05-18] MEDS: LACTOBACILLUS RHAMNOSUS GG 1 CAPSULE. PO SCH ×2 (09:19→23:27)
[2020-05-18] MEDS: CHOLECALCIFEROL (VITAMIN D3) 1,000 UNIT TABLET PO SCH (09:19)
[2020-05-18] MEDS: CETIRIZINE HCL 10 MG TABLET. PO SCH (09:19)
[2020-05-18] MEDS: MULTIVITAMIN with MINERAL TABLET. PO SCH (09:19)
[2020-05-18] MEDS: DULoxetine HCL 30 MG CAPSULE.DR PO SCH (09:19)
[2020-05-18] MEDS: LINEZOLID 600 MG TABLET PO SCH ×2 (09:19→23:29)
[2020-05-18] MEDS: FAMOTIDINE 20 MG TABLET. PO SCH ×2 (09:19→23:29)
[2020-05-18] MEDS: BACLOFEN 10 MG TABLET. PO SCH ×4 (09:19→23:28)
[2020-05-18] MEDS: APIXABAN 5 MG TABLET. PO SCH ×2 (09:20→23:28)
[2020-05-18] MEDS: SENNOSIDES 8.6 MG TABLET PO SCH (09:20)
[2020-05-18] MEDS: oxyCODONE ER 10 MG TAB.ER.12H PO SCH ×2 (09:20→23:29)
[2020-05-18] MEDS: POTASSIUM CHLORIDE 20 MEQ TABLET.ER. PO SCH (09:20)
[2020-05-18] MEDS: ASCORBIC ACID 500 MG TABLET PO SCH (09:20)
[2020-05-18] MEDS: OXYBUTYNIN CHLORIDE 5 MG TABLET PO SCH ×3 (09:20→23:28)
[2020-05-18] MEDS: FERROUS SULFATE 325 MG TABLET. PO SCH (09:20)
--- NOTE | 2020-05-18 10:05 | PN ---
DATE: 05/18/2020 SUBJECTIVE: The patient is resting, slightly propped up in bed, in no apparent distress, awake, alert. On questioning her, denied any complaint. The nursing staff did not voice any concerns, that generally has been through an uneventful night. Her blood culture showed growth of gram-negative rods seen in 1 out of 4 bottles. She also has gram-positive rods suggestive of diphtheroids and her urine culture showed multiple organisms, suggesting a colonization or contamination. The patient was seen by Dr. Alexandra yesterday as she continued to spike her temperature despite being on Rocephin and her antibiotic coverage was broadened to linezolid, meropenem, and daptomycin. PHYSICAL EXAMINATION: GENERAL: When I saw her this morning, she looked pale, cachectic, but no jaundice, cyanosis, or thyromegaly. No jugular venous distention. No limb edema. VITAL SIGNS: Her heart rate was 85, blood pressure was 91/55, temperature 98.5, respiratory rate was 18, and oxygen saturation was 97% on 2 liters of oxygen. HEAD, EYES, EARS, NOSE, AND THROAT: Normocephalic, atraumatic. NECK: Supple. HEART: Showed normal first and second heart sounds with no gallop, rub, or murmur. CHEST: Clear to auscultation. No crepitation or rhonchi. ABDOMEN: Scaphoid, soft with a suprapubic catheter in place. NEUROLOGIC: She was awake, alert, responding appropriately. All cranial nerves intact. She has functional quadriplegia, marked muscle wasting, and fixed flexion contraction of all 4 limbs. She has large sacrococcygeal decubitus ulcer. Her intake over the last 24 hours was 1160, output was 1750. LABORATORY DATA: As of this morning, her serum sodium was 141, potassium 4.2, chloride 107, bicarbonate 22, anion gap of 12, BUN 7, creatinine 0.4, estimated GFR was 171 mL per minute. Her glucose 102, calcium was 7.7. Total bilirubin, AST, ALT, alkaline phosphatase were normal. Total protein 5.4, albumin 2. ASSESSMENT: 1. Sepsis, likely due to urinary tract infection. Her blood culture has grown both gram-positive and gram-negative rods and her urine culture has grown multiple organisms consistent with colonization and/or contamination. 2. The patient has numerous other medical problems including progressive multiple sclerosis with functional quadriplegia. 3. Neurogenic bladder requiring suprapubic catheter. 4. Factor V Leiden mutation, for which she is on Xarelto. She was on Xarelto. She is now on apixaban. She has never had any DVT or pulmonary embolism; however, her father and daughter are positive for factor V Leiden, both have deep vein thrombosis. 5. Chronic obstructive pulmonary disease. 6. Severe protein-calorie malnutrition. 7. Stage 4 sacrococcygeal decubitus ulcer. PLAN: To continue with IV antibiotic as recommended by Infectious Disease specialist. Continue with wound care. Continue nutritional support and pain management. YOLI MEJIA MD DR: JUJU/ronit JOB#: [id number] / [id number]
[2020-05-18 10:53] LABS: BASO % 1 % (0-3); EOS # 0.2 x10^3/uL (0.0-0.7); EOS % 4 % (0-3); HEMATOCRIT 33.3 % (36.0-47.0); HEMOGLOBIN 10.8 g/dL (12.0-15.5); LYMPH # 1.1 x10^3/uL (1.0-4.8); LYMPH % 18 % (24-48); MEAN CORPUSCULAR HEMOGLOBIN 22 pg (25-35); MEAN CORPUSCULAR HGB CONC 32 g/dL (31-37); MEAN CORPUSCULAR VOLUME 68 fL (79-100); MONO # 0.8 x10^3/uL (0.0-1.1); MONO % 13 % (0-9); NEUT # 4.2 x10^3/uL (1.8-7.7); NEUT % 65 % (31-73); PLATELET COUNT 267 x10^3/uL (140-400); RED CELL DISTRIBUTION WIDTH 19.3 % (11.5-14.5); WHITE BLOOD COUNT 6.4 x10^3/uL (4.0-11.0)
[2020-05-18 11:17] VITALS: BP 92/50
[2020-05-18 15:00] VITALS: BP 86/55
[2020-05-18] MEDS: DAPTOmycin (GENERIC) IVPB 360 MG in IV NORMAL SALINE 50ML 50 ML IV SCH (17:33)
[2020-05-18 19:37] VITALS: BP 87/56
[2020-05-18 23:11] VITALS: BP 95/61
[2020-05-18] MEDS: ALPRAZolam 0.5 MG TABLET PO SCH (23:29)
[2020-05-19 04:20] VITALS: BP 83/50
[2020-05-19] MEDS: MEROPENEM 500 MG in IV NORMAL SALINE 50ML 50 ML IV SCH ×4 (06:01→23:44)
[2020-05-19 07:00] VITALS: BP 83/56
[2020-05-19 07:32] LABS: BASO % 1 % (0-3); CALCIUM 7.7 mg/dL (8.5-10.1); CREATININE 0.6 mg/dL (0.6-1.0); EOS # 0.2 x10^3/uL (0.0-0.7); EOS % 4 % (0-3); GFR 107.6; HEMATOCRIT 29.3 % (36.0-47.0); HEMOGLOBIN 9.5 g/dL (12.0-15.5); LYMPH # 1.8 x10^3/uL (1.0-4.8); LYMPH % 30 % (24-48); MEAN CORPUSCULAR HEMOGLOBIN 23 pg (25-35); MEAN CORPUSCULAR HGB CONC 32 g/dL (31-37); MEAN CORPUSCULAR VOLUME 69 fL (79-100); MONO # 0.7 x10^3/uL (0.0-1.1); MONO % 12 % (0-9); NEUT # 3.1 x10^3/uL (1.8-7.7); NEUT % 53 % (31-73); PLATELET COUNT 253 x10^3/uL (140-400); POTASSIUM 3.9 mmol/L (3.5-5.1); RED BLOOD COUNT 4.22 x10^6/uL (3.50-5.40); RED CELL DISTRIBUTION WIDTH 19.6 % (11.5-14.5); WHITE BLOOD COUNT 5.8 x10^3/uL (4.0-11.0)
--- NOTE | 2020-05-19 09:08 | PN ---
DATE: 05/19/2020 SUBJECTIVE: The patient is resting, slightly propped up, sleeping comfortably, in no apparent distress. On questioning her, denied any complaint. The nursing staff did not voice any concern except that her blood pressure continued to be somewhat borderline. However, she has quadriplegia and autonomic dysreflexia. PHYSICAL EXAMINATION: GENERAL: When I examined her, she looked pale, cachectic, but no jaundice, cyanosis or thyromegaly. No jugular venous distention. No limb edema. VITAL SIGNS: Her heart rate was 95, blood pressure was 83/50, temperature was 98, respiratory rate was 22 and oxygen saturation was 96%. HEAD, EYES, EARS, NOSE AND THROAT: Normocephalic, atraumatic. NECK: Supple. CARDIAC: Normal first and second heart sounds. No gallop or murmur. CHEST: Clear to auscultation. No crepitation or rhonchi. ABDOMEN: Scaphoid, soft. Suprapubic catheter in place. NEUROLOGIC: She was sleepy, but arousable. All cranial nerves intact. She has quadriplegia, marked muscle wasting and fixed flexion contraction. SKIN: She has large sacrococcygeal decubitus ulcer. Her intake over the last 24 hours was 900, output was 2500. LABORATORY DATA: As of this morning, her white cell count was 5800, hemoglobin 9.5, hematocrit 29, MCV 69, and platelet count 253,000. Her chemistry showed a serum sodium of 142, potassium 3.9, chloride 107, bicarbonate 27, anion gap of 8, BUN 8, creatinine 0.6, estimated GFR was 107 mL per minute. Her glucose was 78 and calcium was 7.7. Her urine culture showed 3 or more organisms isolated and the result consistent with colonization or contamination. Her blood culture showed gram-negative rods seen in 1/4 bottles. The urine culture grew gram-negative rods identified as Klebsiella pneumoniae. The sensitivity is still pending at the time of this dictation. She also grew small gram-positive rods suggestive of diphtheroids. ASSESSMENT: 1. Sepsis, likely due to urinary tract infection. Her blood culture has grown both gram-positive rods and gram-negative rods. Her urine culture has grown multiple organisms consistent with colonization and/or contamination. 2. The patient has numerous other medical problems including: A. Progressive multiple sclerosis with functional quadriplegia. B. Neurogenic bladder, requiring suprapubic catheter. C. Factor V Leiden mutation, for which she is on Xarelto. D. Chronic obstructive pulmonary disease. E. Severe protein-calorie malnutrition. F. Stage 4 sacrococcygeal decubitus ulcer. PLAN: To continue with IV antibiotic. Continue with wound care. Continue nutritional support and pain management. Await the sensitivity for Klebsiella pneumoniae. YOLI MEJIA MD DR: JUJU/ronit JOB#: [id number] / [id number]
--- NOTE | 2020-05-19 09:15 | PDOC ---
Infectious Disease Note Subjective Subjective Feeling better this morning Denies F/C/aches/SOA/N/V/D ROS ROS as mentioned above Vital Sign Vital Signs Vital Signs Date Time Temp Pulse Resp B/P (MAP) Pulse Ox O2 Delivery O2 Flow Rate FiO2 05/19/20 04:20 98.0 95 22 83/50 (61) 96 Nasal Cannula 2.0 98.0 Physical Exam PHYSICAL EXAM GENERAL: Propped up in bed, alert and watching TV HEENT: Oral cavity, pharynx was dry. NECK: Supple, no JVD. LUNGS: Decreased in the bases, nonlabored HEART: S1, S2, regular ABDOMEN: Soft, nontender, no distention. GENITOURINARY: Suprapubic catheter (05/17) EXTREMITIES: Without clubbing or cyanosis. Contracted and thin. SKIN: Warm to touch. NEUROLOGIC: Alert and appropriate. Port-A-Cath without complications. Labs Lab Laboratory Tests Test 05/18/20 10:30 05/19/20 06:35 White Blood Count 6.4 x10^3/uL (4.0-11.0) 5.8 x10^3/uL (4.0-11.0) Red Blood Count 4.90 x10^6/uL (3.50-5.40) 4.22 x10^6/uL (3.50-5.40) Hemoglobin 10.8 g/dL (12.0-15.5) 9.5 g/dL (12.0-15.5) Hematocrit 33.3 % (36.0-47.0) 29.3 % (36.0-47.0) Mean Corpuscular Volume 68 fL (79-100) 69 fL (79-100) Mean Corpuscular Hemoglobin 22 pg (25-35) 23 pg (25-35) Mean Corpuscular Hemoglobin Concent 32 g/dL (31-37) 32 g/dL (31-37) Red Cell Distribution Width 19.3 % (11.5-14.5) 19.6 % (11.5-14.5) Platelet Count 267 x10^3/uL (140-400) 253 x10^3/uL (140-400) Neutrophils (%) (Auto) 65 % (31-73) 53 % (31-73) Lymphocytes (%) (Auto) 18 % (24-48) 30 % (24-48) Monocytes (%) (Auto) 13 % (0-9) 12 % (0-9) Eosinophils (%) (Auto) 4 % (0-3) 4 % (0-3) Basophils (%) (Auto) 1 % (0-3) 1 % (0-3) Neutrophils # (Auto) 4.2 x10^3/uL (1.8-7.7) 3.1 x10^3/uL (1.8-7.7) Lymphocytes # (Auto) 1.1 x10^3/uL (1.0-4.8) 1.8 x10^3/uL (1.0-4.8) Monocytes # (Auto) 0.8 x10^3/uL (0.0-1.1) 0.7 x10^3/uL (0.0-1.1) Eosinophils # (Auto) 0.2 x10^3/uL (0.0-0.7) 0.2 x10^3/uL (0.0-0.7) Basophils # (Auto) 0.0 x10^3/uL (0.0-0.2) 0.0 x10^3/uL (0.0-0.2) Sodium Level 142 mmol/L (136-145) Potassium Level 3.9 mmol/L (3.5-5.1) Chloride Level 107 mmol/L (98-107) Carbon Dioxide Level 27 mmol/L (21-32) Anion Gap 8 (6-14) Blood Urea Nitrogen 8 mg/dL (7-20) Creatinine 0.6 mg/dL (0.6-1.0) Estimated GFR (Cockcroft-Gault) 107.6 Glucose Level 78 mg/dL (70-99) Calcium Level 7.7 mg/dL (8.5-10.1) IMPRESSION: Hypoventilatory chest showing right diaphragmatic elevation and mild right basilar atelectasis. Otherwise no acute cardiopulmonary process. Micro 05/15. BLOOD CULTURE LC Preliminary Preliminary GRAM NEGATIVE RODS FINAL ID= [KLEBSIELLA PNEUMONIAE] KLEBSIELLA PNEUMONIAE 05/17. BLOOD CULTURE Final GRAM NEGATIVE RODS SEEN IN 1 OF 4 BOTTLES, 2 SETS COLLECTED. CALLED TO Susan/GRACIELA MOJICA AT 0804 ON 05/18/20 BY B[place]. SENT TO [facility] FOR FURTHER WORKUP. 05/17. URINE CULTURE Final Final Three or more organisms isolated. Results consistent with colonization or contamination during the collection process. Recollection recommended using a method to minimize contamination. An ID and Sensitivity will be performed when one organism is predominant and a likely pathogen on 05/19/20 at 0754 Objective Assessment Sepsis with Klebsiella bacteremia from 05/15. Repeat BC 05/17 GNR Fever - better Hypotension - better Chronic SP martini - changed 05/17 Wounds appear clean H/o VRE/MRSA/PSA/c-diff Plan Plan of Care Meropenem/Dapto (CXR clear)/zyvox f/u cultures Maintain aspiration precautions Contact isolation for h/o MDRO D/c Dapto F/u repeat cults ? if source UTI - Left port without inflammation or tenderness. If cult + may need port imaging Attending Co-Sign Attending Co-Sign The patient was seen and interviewed as well as examined at the bedside. The chart was reviewed. The case was discussed. Agree with the plan of care. AMY REESE APRN May 19, 2020 09:14 GARRY HUNTER MD May 19, 2020 15:31
[2020-05-19] MEDS: SENNOSIDES 8.6 MG TABLET PO SCH (09:28)
[2020-05-19] MEDS: CETIRIZINE HCL 10 MG TABLET. PO SCH (09:28)
[2020-05-19] MEDS: MULTIVITAMIN with MINERAL TABLET. PO SCH (09:28)
[2020-05-19] MEDS: OXYBUTYNIN CHLORIDE 5 MG TABLET PO SCH ×3 (09:28→21:28)
[2020-05-19] MEDS: LACTOBACILLUS RHAMNOSUS GG 1 CAPSULE. PO SCH ×2 (09:28→21:27)
[2020-05-19] MEDS: CHOLECALCIFEROL (VITAMIN D3) 1,000 UNIT TABLET PO SCH (09:28)
[2020-05-19] MEDS: LINEZOLID 600 MG TABLET PO SCH ×2 (09:29→21:27)
[2020-05-19] MEDS: oxyCODONE ER 10 MG TAB.ER.12H PO SCH ×2 (09:29→21:28)
[2020-05-19] MEDS: DULoxetine HCL 30 MG CAPSULE.DR PO SCH (09:29)
[2020-05-19] MEDS: DANTROLENE SODIUM 25 MG CAPSULE PO SCH ×4 (09:29→21:27)
[2020-05-19] MEDS: FAMOTIDINE 20 MG TABLET. PO SCH ×2 (09:29→21:26)
[2020-05-19] MEDS: FERROUS SULFATE 325 MG TABLET. PO SCH (09:29)
[2020-05-19] MEDS: BACLOFEN 10 MG TABLET. PO SCH ×4 (09:29→21:27)
[2020-05-19] MEDS: POTASSIUM CHLORIDE 20 MEQ TABLET.ER. PO SCH (09:30)
[2020-05-19] MEDS: ASCORBIC ACID 500 MG TABLET PO SCH (09:30)
[2020-05-19] MEDS: APIXABAN 5 MG TABLET. PO SCH ×2 (09:30→21:29)
[2020-05-19] MEDS: IV NORMAL SALINE 1000ML BAG 1,000 ML IV SCH ×2 (10:41→21:59)
[2020-05-19 11:00] VITALS: BP 97/58
[2020-05-19 15:00] VITALS: BP 86/54
[2020-05-19 19:20] VITALS: BP 92/61
[2020-05-19] MEDS: ALPRAZolam 0.5 MG TABLET PO SCH (21:27)
[2020-05-19 23:30] VITALS: BP_SYST 79; BP_SYST 85; BP_DIAS 52; BP_DIAS 54
[2020-05-20] VITALS (7 sets, daily range): BP systolic 74–107; BP diastolic 47–61
[2020-05-20 01:15] LABS: BILIRUBIN,URINE NEGATIVE (NEG); CLARITY,URINE CLEAR; COLOR,URINE YELLOW; NITRITE,URINE NEGATIVE (NEG); PROTEIN,URINE NEGATIVE (NEG-TRACE); UROBILINOGEN,URINE 0.2 mg/dL (0.2 mg/dL)
[2020-05-20 01:24] LABS: SQUAMOUS EPITHELIAL CELL,UR MOD /LPF
[2020-05-20 01:25] LABS: BACTERIA,URINE 0 /HPF (0-FEW); RBC,URINE OCC /HPF (0-2)
[2020-05-20] MEDS: MEROPENEM 500 MG in IV NORMAL SALINE 50ML 50 ML IV SCH ×3 (06:11→18:12)
[2020-05-20 06:37] LABS: CALCIUM 7.5 mg/dL (8.5-10.1); CREATININE 0.4 mg/dL (0.6-1.0); GFR 171.8; POTASSIUM 4.2 mmol/L (3.5-5.1)
--- NOTE | 2020-05-20 08:48 | PDOC ---
Infectious Disease Note Subjective Subjective Feeling better this morning Denies F/C/aches/SOA/N/V/D asking can I go home ROS ROS no n/v/d/ Vital Sign Vital Signs Vital Signs Date Time Temp Pulse Resp B/P (MAP) Pulse Ox O2 Delivery O2 Flow Rate FiO2 05/20/20 07:26 Room Air 05/20/20 07:00 97.9 77 16 85/53 (64) 94 97.9 Physical Exam PHYSICAL EXAM GENERAL: Propped up in bed, alert and watching TV HEENT: Oral cavity, pharynx was dry. NECK: Supple, no JVD. LUNGS: Decreased in the bases, nonlabored HEART: S1, S2, regular ABDOMEN: Soft, nontender, no distention. GENITOURINARY: Suprapubic catheter (05/17) EXTREMITIES: Without clubbing or cyanosis. Contracted and thin. SKIN: Warm to touch. NEUROLOGIC: Alert and appropriate. Port-A-Cath without complications. Labs Lab Laboratory Tests Test 05/20/20 00:45 05/20/20 05:08 Urine Collection Type Unknown Urine Color Yellow Urine Clarity Clear Urine pH 7.0 (<5.0-8.0) Urine Specific [place] 1.010 (1.000-1.030) Urine Protein Negative mg/dL (NEG-TRACE) Urine Glucose (UA) Negative mg/dL (NEG) Urine Ketones (Stick) Negative mg/dL (NEG) Urine Blood Trace (NEG) Urine Nitrite Negative (NEG) Urine Bilirubin Negative (NEG) Urine Urobilinogen Dipstick 0.2 mg/dL (0.2 mg/dL) Urine Leukocyte Esterase Negative (NEG) Urine RBC Occ /HPF (0-2) Urine WBC 5-10 /HPF (0-4) Urine Squamous Epithelial Cells Mod /LPF Urine Bacteria 0 /HPF (0-FEW) Urine Mucus Slight /LPF Sodium Level 141 mmol/L (136-145) Potassium Level 4.2 mmol/L (3.5-5.1) Chloride Level 107 mmol/L (98-107) Carbon Dioxide Level 25 mmol/L (21-32) Anion Gap 9 (6-14) Blood Urea Nitrogen 5 mg/dL (7-20) Creatinine 0.4 mg/dL (0.6-1.0) Estimated GFR (Cockcroft-Gault) 171.8 Glucose Level 62 mg/dL (70-99) Calcium Level 7.5 mg/dL (8.5-10.1) Micro Microbiology 05/19/20 Blood Culture - Preliminary, Resulted NO GROWTH AFTER 1 DAY 05/17/20 Urine Culture - Final, Complete Objective Assessment Sepsis with Klebsiella bacteremia from 05/15. Repeat BC 05/17 GNR Fever - better Hypotension - better Chronic SP martini - changed 05/17 Wounds appear clean H/o VRE/MRSA/PSA/c-diff Plan Plan of Care Meropenem f/u cultures Maintain aspiration precautions Contact isolation for h/o MDRO pt can be d/paul on iv Invanz to finish 7 more days ROSEMARY THOMAS MD May 20, 2020 08:48
[2020-05-20] MEDS: POTASSIUM CHLORIDE 20 MEQ TABLET.ER. PO SCH (08:57)
[2020-05-20] MEDS: CHOLECALCIFEROL (VITAMIN D3) 1,000 UNIT TABLET PO SCH (08:57)
[2020-05-20] MEDS: FERROUS SULFATE 325 MG TABLET. PO SCH (08:57)
[2020-05-20] MEDS: APIXABAN 5 MG TABLET. PO SCH ×2 (08:57→21:39)
[2020-05-20] MEDS: oxyCODONE ER 10 MG TAB.ER.12H PO SCH ×2 (08:57→21:40)
[2020-05-20] MEDS: ASCORBIC ACID 500 MG TABLET PO SCH (08:57)
[2020-05-20] MEDS: LINEZOLID 600 MG TABLET PO SCH ×2 (08:57→21:40)
[2020-05-20] MEDS: CETIRIZINE HCL 10 MG TABLET. PO SCH (08:57)
[2020-05-20] MEDS: OXYBUTYNIN CHLORIDE 5 MG TABLET PO SCH ×3 (08:57→21:39)
[2020-05-20] MEDS: FAMOTIDINE 20 MG TABLET. PO SCH ×2 (08:57→21:40)
[2020-05-20] MEDS: DANTROLENE SODIUM 25 MG CAPSULE PO SCH ×4 (08:57→21:39)
[2020-05-20] MEDS: MULTIVITAMIN with MINERAL TABLET. PO SCH (08:58)
[2020-05-20] MEDS: LACTOBACILLUS RHAMNOSUS GG 1 CAPSULE. PO SCH ×2 (08:58→21:40)
[2020-05-20] MEDS: DULoxetine HCL 30 MG CAPSULE.DR PO SCH (08:58)
[2020-05-20] MEDS: SENNOSIDES 8.6 MG TABLET PO SCH (08:58)
[2020-05-20] MEDS: BACLOFEN 10 MG TABLET. PO SCH ×4 (08:58→21:40)
[2020-05-20] MEDS: IV NORMAL SALINE 1000ML BAG 1,000 ML IV SCH ×2 (09:01→21:41)
--- NOTE | 2020-05-20 09:58 | NUR ---
IP: Pt has a blood culture with (R) Kleb. pneumoniae with ESBL requiring contact precautions.
[2020-05-20] MEDS ORDERED: ERTA1VIA16 IJ (10:01)
--- NOTE | 2020-05-20 10:02 | SNU/HH DC ---
DISCHARGE ORDERS DISCHARGE INFORMATION: DISCHARGE DATE: May 20, 2020 FINAL DIAGNOSIS Problems Medical Problems: (1) Urinary tract infection Status: Acute CONDITION ON DISCHARGE: Stable CODE STATUS: Code Status: Full LONGTERM: SNF STAY <30 DAYS: Yes POST DISCHARGE ORDERS: ACTIVITY ORDERS: Activity as tolerated WEIGHT BEARING STATUS: Non weight bearing DIET AFTER DISCHARGE: Regular WOUND/INCISION CARE: Keep wound/cast CDI, Change dressing CHECKS AFTER DISCHARGE: CHECKS AFTER DISCHARGE: Check blood press - daily TREATMENT/EQUIPMENT ORDERS: ADAPTIVE EQUIPMENT NEEDED: None, Wheelchair RESPIRATORY EQUIPMENT NEEDED: Oxygen Physical Therapy For: Evalulation/Treatment Occupational Therapy For: Evaluation/Treatment DISCHARGE MEDICATIONS: Home Meds Active Scripts Ertapenem Sodium (INVANZ) 1 Gm Vial, 1 GM IJ DAILY for UTI for 7 Days, #7 EACH Prov:YOLI MEJIA MD 05/20/20 Reported Medications Collagenase Clostridium Hist. (SANTYL OINTMENT) 30 Gm Oint...g., 1 ANNA TP DAILY for for 30 Days, #90 GM 0 Refills 05/16/20 Oxycodone HCl/Acetaminophen (Percocet 5-325 mg Tablet) 1 Each Tablet, 1 TAB PO PRN Q4HRS for MDD 2 Tablet(s) for 5 Days, #10 TAB 0 Refills 05/16/20 Mupirocin (MUPIROCIN OINTMENT) 22 Gm Oint...g., 1 ANNA TP PRN Q12HR for , #1 TUBE 05/16/20 Oxycodone HCl (Oxycodone HCl ER) 20 Mg Tab.er.12h, 20 MG PO BID for pain, TAB.SR 04/09/20 Cholecalciferol (Vitamin D3) (Vitamin D3) 1,250 Mcg Capsule, 1000 MCG PO DAILY for SUPPLEMENT, CAP 11/30/19 Polyethylene Glycol 3350 (MIRALAX) 17 Gm Powd.pack, 1 PKT PO PRN DAILY PRN for CONSTIPATION, PKT 11/30/19 Mirabegron (MYRBETRIQ) 50 Mg Tab.er.24h, 50 MG PO DAILY for BLADDER SPASMS, TAB.SR 11/30/19 Acetaminophen (ACETAMINOPHEN) 325 Mg Tablet, 650 MG PO PRN Q4HRS PRN for MILD PAIN 1-3, TAB 11/30/19 Dantrolene Sodium (DANTROLENE SODIUM) 25 Mg Capsule, 75 MG PO QID for muscle spasms , CAP 05/24/19 Lactobacillus Acidophilus (ACIDOPHILUS) 1 Each Tab.chew, 1 CAP PO BID for probiotic, TAB.CHEW 05/24/19 Multivitamin with Folic Acid (Thera Tablet) 400 Mcg Tablet, 400 MCG PO DAILY for supplement , TAB 05/24/19 Sennosides (SENNOSIDES) 8.6 Mg Tablet, 8.6 MG PO DAILY for constipation, TAB 05/24/19 Oxycodone/Apap 5-325 (PERCOCET 5-325 MG TABLET ) 1 Each Tablet, 1 TAB PO PRN Q4HRS PRN for PAIN, TAB 0 Refills 05/24/19 Potassium Chloride (POTASSIUM CHLORIDE ) 20 Meq Tablet.er, 40 MEQ PO DAILY for nutritional supplement, TAB.SR 12/30/18 Oxybutynin Chloride (OXYBUTYNIN CHLORIDE) 5 Mg Tablet, 5 MG PO TID for overactive bladder, TAB 12/30/18 Ondansetron Hcl (ZOFRAN) 4 Mg Tablet, 1 TAB PO PRN Q4HRS PRN for NAUSEA/VOMITING, #20 TAB 12/30/18 Loratadine (LORATADINE) 10 Mg Tablet, 1 TAB PO DAILY for allergies, #30 TAB 5 Refills 12/30/18 Ferrous Sulfate (FERROUS SULFATE) 325 Mg Tablet, 325 MG PO DAILY for nutritional supplement, TAB 12/30/18 Famotidine (FAMOTIDINE) 20 Mg Tablet, 20 MG PO BID for Indigestion, TAB 12/30/18 Duloxetine Hcl (CYMBALTA) 30 Mg Capsule.dr, 30 MG PO DAILY for Depression, CAP 12/30/18 Baclofen (BACLOFEN) 20 Mg Tablet, 20 MG PO QID for MUSCLE RELAXER, #30 TAB 0 Refills 12/30/18 Apixaban (ELIQUIS) 5 Mg Tablet, 5 MG PO BID for factor V, TAB 12/30/18 Alprazolam (ALPRAZOLAM) 0.5 Mg Tablet, 1 TAB PO HS for Anxiety, #30 TAB 12/30/18 Discontinued Scripts Ciprofloxacin Hcl (CIPRO) 500 Mg Tablet, 1 TAB PO BID for uti for 7 Days, #14 TAB 0 Refills Prov:JIMI CAICEDO MD 12/04/19 YOLI MEJIA MD May 20, 2020 10:02
[2020-05-20] MEDS: ANTI-COAG MONITOR BY PHARMACY. MC PRN (10:28)
[2020-05-20] MEDS: ALPRAZolam 0.5 MG TABLET PO SCH (21:38)
[2020-05-21] MEDS: MEROPENEM 500 MG in IV NORMAL SALINE 50ML 50 ML IV SCH ×3 (00:28→12:18)
[2020-05-21 02:32] VITALS: BP 90/53
[2020-05-21 07:00] VITALS: BP 93/58
--- NOTE | 2020-05-21 09:03 | PDOC ---
Infectious Disease Note Subjective Subjective Feeling better this morning Denies F/C/aches/SOA/N/V/D asking can I go home Vital Sign Vital Signs Vital Signs Date Time Temp Pulse Resp B/P (MAP) Pulse Ox O2 Delivery O2 Flow Rate FiO2 05/21/20 07:00 97.8 75 16 93/58 (70) 93 Room Air 97.8 Physical Exam PHYSICAL EXAM GENERAL: Propped up in bed, alert and watching TV HEENT: Oral cavity, pharynx was dry. NECK: Supple, no JVD. LUNGS: Decreased in the bases, nonlabored HEART: S1, S2, regular ABDOMEN: Soft, nontender, no distention. GENITOURINARY: Suprapubic catheter (05/17) EXTREMITIES: Without clubbing or cyanosis. Contracted and thin. SKIN: Warm to touch. NEUROLOGIC: Alert and appropriate. Port-A-Cath without complications. Labs Micro Microbiology 05/19/20 Blood Culture - Preliminary, Resulted NO GROWTH AFTER 1 DAY 05/17/20 Urine Culture - Final, Complete Objective Assessment Sepsis with Klebsiella bacteremia from 05/15. Repeat BC 05/17 GNR Fever - better Hypotension - better Chronic SP martini - changed 05/17 Wounds appear clean H/o VRE/MRSA/PSA/c-diff Plan Plan of Care Meropenem f/u cultures Maintain aspiration precautions Contact isolation for h/o MDRO pt can be d/paul on iv Invanz to finish 7 more days ROSEMARY THOMAS MD May 21, 2020 09:02
[2020-05-21] MEDS: MULTIVITAMIN with MINERAL TABLET. PO SCH (09:11)
[2020-05-21] MEDS: LACTOBACILLUS RHAMNOSUS GG 1 CAPSULE. PO SCH (09:11)
[2020-05-21] MEDS: LINEZOLID 600 MG TABLET PO SCH (09:11)
[2020-05-21] MEDS: BACLOFEN 10 MG TABLET. PO SCH (09:11)
[2020-05-21] MEDS: DULoxetine HCL 30 MG CAPSULE.DR PO SCH (09:11)
[2020-05-21] MEDS: DANTROLENE SODIUM 25 MG CAPSULE PO SCH (09:12)
[2020-05-21] MEDS: APIXABAN 5 MG TABLET. PO SCH (09:12)
[2020-05-21] MEDS: ASCORBIC ACID 500 MG TABLET PO SCH (09:12)
[2020-05-21] MEDS: FAMOTIDINE 20 MG TABLET. PO SCH (09:12)
[2020-05-21] MEDS: CETIRIZINE HCL 10 MG TABLET. PO SCH (09:12)
[2020-05-21] MEDS: POTASSIUM CHLORIDE 20 MEQ TABLET.ER. PO SCH (09:13)
[2020-05-21] MEDS: FERROUS SULFATE 325 MG TABLET. PO SCH (09:13)
[2020-05-21] MEDS: OXYBUTYNIN CHLORIDE 5 MG TABLET PO SCH (09:13)
[2020-05-21] MEDS: SENNOSIDES 8.6 MG TABLET PO SCH (09:13)
[2020-05-21] MEDS: oxyCODONE ER 10 MG TAB.ER.12H PO SCH (09:13)
[2020-05-21] MEDS: CHOLECALCIFEROL (VITAMIN D3) 1,000 UNIT TABLET PO SCH (09:13)
[2020-05-21] MEDS: IV NORMAL SALINE 1000ML BAG 1,000 ML IV SCH ×2 (10:00)
[2020-05-21] MEDS: ANTI-COAG MONITOR BY PHARMACY. MC PRN (10:36)
[2020-05-21 11:00] VITALS: BP 117/75
--- NOTE | 2020-05-21 13:33 | NUR ---
Discharge: Report called to BERENICE Rivera [phone], IV in place will be on IV antibiotics for 1 week. All belongings with patient. Patient assisted off of unit via gurney accompanied by transport
--- NOTE | 2020-05-21 16:25 | DS ---
DATE OF DISCHARGE: 05/21/2020 HOSPITAL COURSE: The patient is a 44-year-old female patient who was admitted with fever and altered mental status. When I saw her today, she was resting slightly propped up in bed, in no apparent respiratory distress, awake and alert. Denied any complaint. The nursing staff did not voice any concern and stated that she generally had uneventful night. She does have functional quadriplegia due to progressive multiple sclerosis and autonomic dysreflexia. PHYSICAL EXAMINATION: GENERAL: On examining her, she looked pale, cachectic, but no jaundice, cyanosis, or thyromegaly. No jugular venous distention. No limb edema. VITAL SIGNS: Her heart rate was 75, blood pressure was 93/58, temperature 97.8, respiratory rate was 16, and oxygen saturation was 93%. HEAD, EYES, EARS, NOSE, AND THROAT: Showed normocephalic and atraumatic. NECK: Supple. HEART: Showed normal first and second heart sounds. No gallop or murmur. CHEST: Clear to auscultation. No crepitation or rhonchi. ABDOMEN: Distended and soft with suprapubic catheter in place. NEUROLOGIC: She is awake, alert, and responding appropriately. All cranial nerves intact. She has functional quadriplegia with fixed flexion contraction of all 4 limbs. She has an indwelling suprapubic catheter. She has a large sacrococcygeal decubitus ulcer. Her intake was 1800 and output was 1750. LABORATORY DATA: As of yesterday, her white cell count was 5800, hemoglobin 10, hematocrit 30, MCV 69, and platelet count 253,000. Her chemistry showed a serum sodium of 141, potassium 4.2, chloride 107, bicarbonate 25, anion gap of 9, BUN 5, serum creatinine was 0.4, and estimated GFR was 171 mL per minute. Her glucose was 62 and calcium was 7.5. FINAL DISCHARGE DIAGNOSES: 1. Sepsis, likely due to urinary tract infection. Her blood culture has grown both gram-positive rods and gram-negative rods. Her urine culture has grown multiple organisms consistent with colonization and/or contamination. 2. The patient has numerous other medical problems including: A. Progressive multiple sclerosis, functional quadriplegia. B. Neurogenic bladder, requiring suprapubic catheter. C. Factor V Leiden mutation for which she is on Xarelto. D. Chronic obstructive pulmonary disease. E. Severe protein-calorie malnutrition. F. Stage 4 sacrococcygeal decubitus ulcer. YOLI MEJIA MD DR: JUJU/ronit JOB#: [id number] / [id number]
== END 2020-05-21 13:20 | DRG 871 ==
LOC: ER 18:50 → 2 SOUTH 21:21 → OBSVTOIN 05-16 09:40
PROVIDERS: ADMIT Internal Medicine; ATTEND Internal Medicine
DX: A41.89 Other specified sepsis (principal); L89.154 Pressure ulcer of sacral region, stage 4; E43 Unspecified severe protein-calorie malnutrition; R53.2 Functional quadriplegia; D68.51 Activated protein C resistance; N39.0 Urinary tract infection, site not specified; Z20.828 Contact with and (suspected) exposure to other viral communicable diseases; G35 Multiple sclerosis; F32.9 Major depressive disorder, single episode, unspecified; F41.9 Anxiety disorder, unspecified; J44.9 Chronic obstructive pulmonary disease, unspecified; L89.159 Pressure ulcer of sacral region, unspecified stage; B96.1 Klebsiella pneumoniae [K. pneumoniae] as the cause of diseases classified elsewhere; L89.319 Pressure ulcer of right buttock, unspecified stage; M34.9 Systemic sclerosis, unspecified; N31.9 Neuromuscular dysfunction of bladder, unspecified; Z74.01 Bed confinement status; Z79.01 Long term (current) use of anticoagulants; Z87.440 Personal history of urinary (tract) infections; Z87.891 Personal history of nicotine dependence; Z79.899 Other long term (current) drug therapy; Z68.23 Body mass index [BMI] 23.0-23.9, adult
CPT/HCPCS: 36415; 71045; 80048; 80053; 81001; 83605; 84484; 85025; 85027; 87040; 87077; 87086; 87186; 87205; 93005; 96361; 96374; 99285; G0378; G0379; J0696; J0878; J2185; J7030; U0003-CS

== ENCOUNTER 2020-08-18 10:24 | Inpatient (IN) | payer MEDICARE, OTHER ==
[~2020-08-18] VITALS: Ht 172.7 cm; Wt 68.1 kg
[~2020-08-18 10:24] MED LIST changes: +COLL30OI TP; +ERTA1VIA16 IJ; +MUPI22OI2 TP; +OXYC-325 PO
--- NOTE | 2020-08-18 10:42 | PHYS DOC ---
Past Medical History Past Medical History: Anxiety, COPD, Depression, Pneumonia, UTI, Other Additional Past Medical Histor: MS,FACTOR 5,WOUND ON COCCYX Past Surgical History: Other Additional Past Surgical Histo: DEBRIDMENT ON COCCYX; suprapubic cath Smoking Status: Former Smoker Alcohol Use: None Drug Use: Marijuana General Adult EDM: Chief Complaint: ALTERED MENTAL STATUS HPI: HPI: History obtained from EMS. Patient is a 45-year-old female multiple comorbidities including stage IV sacral decubitus ulcers, chronic indwelling suprapubic catheter, multiple sclerosis with functional quadriplegia who presents with a chief complaint of altered mental status. She resides at [facility]. EMS states that they were called to her facility for decreased mentation. They state that they were told she does not typically converse at baseline but she is able to respond to simple questions. Nursing staff notes this has changed overnight. Nursing staff reports no temperatures yesterday. No reports of trauma per EMS. No further history can be obtained from the patient given her decreased mentation. Per chart review she does have a history of previous MRSA, VRE, C. diff as well as Pseudomonas. She has chronic wounds and also has a history of previous ESBL infections. [facility] Urinalysis wasconcerning for urinary tract infection; however, urine culture had more than 3 organisms. Blood cultures obtained on the May 15, gram-positive rods suggestive ofdiphtheroids in 1 of 2 bottles. She was treated with meropenem, daptomycin, and Zyvox. Review of Systems: Review of Systems: Constitutional: Positive for fever, weakness Eyes: Denies change in visual acuity. [] HENT: Denies nasal congestion or sore throat. [] Respiratory: Denies cough or shortness of breath. [] Cardiovascular: Denies chest pain or edema. [] GI: Denies abdominal pain, nausea, vomiting, bloody stools or diarrhea. [] : Denies dysuria. [] Musculoskeletal: Denies back pain or joint pain. [] Integument: Denies rash. [] Neurologic: Denies headache, focal weakness or sensory changes. [] Endocrine: Denies polyuria or polydipsia. [] Lymphatic: Denies swollen glands. [] Psychiatric: Denies depression or anxiety. [] Heart Score: Risk Factors: Risk Factors: DM, Current or recent (<one month) smoker, HTN, HLP, family history of CAD, obesity. Risk Scores: Score 0 - 3: 2.5% MACE over next 6 weeks - Discharge Home Score 4 - 6: 20.3% MACE over next 6 weeks - Admit for Clinical Observation Score 7 - 10: 72.7% MACE over next 6 weeks - Early Invasive Strategies Allergies: Allergies: Allergies Coded Allergies Type Severity Reaction Last Updated Verified I S O L A T I O N *CONTACT* Allergy Unknown 05/20/20 Yes No Known Medication Allergies Allergy Unknown 04/28/17 Yes Physical Exam: PE: Constitutional: Chronically ill-appearing HENT: Normocephalic, atraumatic, bilateral external ears normal, oropharynx moist, no oral exudates, nose normal. [] Eyes: PERRLA, EOMI, conjunctiva normal, no discharge. [] Cardiovascular: Tachycardic, rhythm, no murmur [] Lungs & Thorax: Rhonchorous breath sounds noted bilaterally. [] Abdomen: Soft, nontender, nonacute abdomen. No involuntary guarding or rigidity noted. No acute peritonitis. Suprapubic indwelling catheter noted. No surrounding erythema or induration over insertion site Skin: Warm to touch, dry, no erythema, no rash. [] Back: Stage III-IV sacral decubitus ulcer noted. Also 2 x 2 centimeter stage III sacral decubitus ulcer over the right buttocks [] Extremities: Functional quadriplegia with spasticity noted Neurologic: Does not communicate. All 4 extremities and flexion, spasticity. GCS (10) [id number]. Current Patient Data: Labs: Laboratory Tests Test 08/18/20 11:00 08/18/20 11:05 08/18/20 12:10 White Blood Count 16.0 x10^3/uL Red Blood Count 4.58 x10^6/uL Hemoglobin 10.7 g/dL Hematocrit 33.7 % Mean Corpuscular Volume 74 fL Mean Corpuscular Hemoglobin 23 pg Mean Corpuscular Hemoglobin Concent 32 g/dL Red Cell Distribution Width 15.9 % Platelet Count 240 x10^3/uL Neutrophils (%) (Auto) 87 % Lymphocytes (%) (Auto) 4 % Monocytes (%) (Auto) 8 % Eosinophils (%) (Auto) 0 % Basophils (%) (Auto) 0 % Neutrophils # (Auto) 13.9 x10^3/uL Lymphocytes # (Auto) 0.7 x10^3/uL Monocytes # (Auto) 1.3 x10^3/uL Eosinophils # (Auto) 0.1 x10^3/uL Basophils # (Auto) 0.0 x10^3/uL Segmented Neutrophils % 78 % Band Neutrophils % 13 % Lymphocytes % 7 % Monocytes % 2 % Platelet Estimate Adequate Hypochromasia Slight Poikilocytosis Slight Anisocytosis Slight Microcytosis Slight Prothrombin Time 25.0 SEC Prothromb Time International Ratio 2.3 Lactic Acid Level 0.9 mmol/L Sodium Level 135 mmol/L Potassium Level 4.5 mmol/L Chloride Level 103 mmol/L Carbon Dioxide Level 25 mmol/L Anion Gap 7 Blood Urea Nitrogen 22 mg/dL Creatinine 0.8 mg/dL Estimated GFR (Cockcroft-Gault) 76.9 BUN/Creatinine Ratio 28 Glucose Level 99 mg/dL Calcium Level 7.9 mg/dL Magnesium Level 1.6 mg/dL Total Bilirubin 0.5 mg/dL Aspartate Amino Transf (AST/SGOT) 19 U/L Alanine Aminotransferase (ALT/SGPT) 12 U/L Alkaline Phosphatase 53 U/L Total Protein 6.0 g/dL Albumin 2.0 g/dL Albumin/Globulin Ratio 0.5 Lipase 26 U/L Urine Collection Type U cath Urine Color Yellow Urine Clarity Turbid Urine pH 7.5 Urine Specific [place] 1.020 Urine Protein 100 mg/dL Urine Glucose (UA) Negative mg/dL Urine Ketones (Stick) Negative mg/dL Urine Blood Large Urine Nitrite Positive Urine Bilirubin Negative Urine Urobilinogen Dipstick 1.0 mg/dL Urine Leukocyte Esterase Large Urine RBC Tntc /HPF Urine WBC Tntc /HPF Urine Squamous Epithelial Cells Many /LPF Urine Amorphous Sediment Present /HPF Urine Bacteria Many /HPF Current Medications Medications (Trade) Dose Ordered Sig/Amber Route PRN Reason Start Time Stop Time Status Last Admin Dose Admin Sodium Chloride 1,000 ml @ 2,000 mls/hr 1X ONCE IV 08/18/20 11:00 08/18/20 11:29 DC 08/18/20 11:10 Meropenem 1 gm/ Sodium Chloride 100 ml @ 200 mls/hr 1X ONCE IV 08/18/20 11:00 08/18/20 11:29 DC 08/18/20 11:12 Daptomycin 330 mg/ Sodium Chloride 50 ml @ 100 mls/hr 1X ONCE IV 08/18/20 12:00 08/18/20 12:29 DC 08/18/20 11:55 Linezolid/Dextrose 300 ml @ 300 mls/hr 1X ONCE IV 08/18/20 11:30 08/18/20 12:29 DC 08/18/20 12:19 Acetaminophen (Tylenol Supp) 650 mg 1X ONCE MD 08/18/20 11:00 08/18/20 11:13 DC 08/18/20 12:00 Sodium Chloride 1,000 ml @ 1,000 mls/hr 1X ONCE IV 08/18/20 12:00 08/18/20 12:59 DC 08/18/20 11:54 Fentanyl Citrate (Fentanyl 2ml Vial) 50 mcg 1X ONCE IVP 08/18/20 12:45 08/18/20 12:46 DC 08/18/20 12:44 Sodium Chloride 1,000 ml @ 150 mls/hr Q6H40M IV 08/18/20 12:45 08/18/20 12:46 Iohexol (Omnipaque 300 Mg/ml) 75 ml 1X ONCE IV 08/18/20 13:00 08/18/20 13:01 DC Info (CONTRAST GIVEN -- Rx MONITORING) 1 each PRN DAILY PRN MC SEE COMMENTS 08/18/20 12:45 08/20/20 12:44 Vital Signs: Vital Signs Date Time Temp Pulse Resp B/P (MAP) Pulse Ox O2 Delivery O2 Flow Rate FiO2 08/18/20 12:44 24 93 Room Air 08/18/20 10:24 102.2 24 109/69 (82) 94 Room Air 102.2 EKG: EKG: [] EKG consistent with sinus tachycardia. Ventricular rate of 130 bpm. Left axis noted. Intervals normal. No acute ischemic changes noted. Radiology/Procedures: Radiology/Procedures: [] Procedure Central Line: Central Venous Line Procedure Note [place] Protocol: 1. Pre-procedure verification: - Correct patient, correct site, correct procedure (correct patient verified against two identifiers: name and date of ) - H&P or H&P update complete and in medical record - Review of: Radiology images, scans, labs, pathology, biopsy reports with appropriate identifiers (if applicable) - Any required blood products, implants, devices, and/or special equipment for the procedure (if applicable) 2. Site Markings - when appropriate: N/A 3. Time Out: Time out performed (Includes validating the following: Correct patient, correct side/site marked and procedure to performed, correct position) Procedure Details: PROCEDURE: Central Line Placement INDICATION: Vascular access CONSENT: Emergency consent implied Risks include: bleeding, infection, pneumothorax, pain, PROCEDURE: Time out performed. The patient's right internal jugular vein was initially visualized via ultrasound. The area was then cleansed with Chlorhexadine Gluconate x30 seconds and anesthetized with 2 ml 1% lidocaine. The area was then prepped and drapped in sterile fashion, including maximum barrier precautions. Under sterile technique and U/S guidence, the introducer needle was cannulated into the right internal jugular vein. The guidewire was then threaded into the vein. The dilator was then placed over the guidewire and into the vein. It was then removed and then the Arrow 7Fr triple-lumen catheter was placed over the guidewire and the guidewire removed via the distal port. Dark red, non- pulsatile blood was aspirated from each port; each port was then flushed with NSS. The CVC was then secured with a stat-lock. A blue biodisk was placed after the area was cleansed again. The site was then dressed with an Opsite. CXR ordered to confirm placement. EBL minimal Wagner Guerra, Course & Med Decision Making: Course & Med Decision Making Pertinent Labs and Imaging studies reviewed. (See chart for details) [] Patient is a 45-year-old female who presents from her assisted living facility for fever and altered mental status. Initial vital signs notable for tachycardia. Consistent with sinus tachycardia. Patient's initial GCS (10) E4V1M5. Physical exam noted above. My initial concern was sepsis. Blood cultures and lactate were drawn. Patient was given broad-spectrum antibiotics including meropenem, daptomycin, and Zyvox per previous infectious disease notes. Urinalysis does show evidence of infection. Unclear whether this is chronic colonization or acute infection. She does have stage IV sacral decubitus ulcers as well as a source of infection. X-ray nonacute. Given concerns for vascular access and potential need for pressor support central line was placed in the right internal jugular vein. See procedure note for further details. Patient has remained hemodynamically stable although tachycardic while in the emergency department. She was given pain medication. Fluid resuscitation initiated. CT chest abdomen pelvis was obtained. It did reveal a left-sided UPJ kidney stone with mild hydronephrosis. Measuring approximate 1 cm. I did discuss the results of labs and imaging with her primary care physician Dr. Mejia. Specifically I inquired if he would prefer transfer to a facility with urology given she does have signs of infection with concurrent stone. He states he does feel the patient is appropriate to stay at our facility for further antibiotic treatment and fluid resuscitation. She continues to remain hemodynamically stable and will be hospitalized to the [facility] for further care. Dragon Disclaimer: Dragon Disclaimer: This electronic medical record was generated, in whole or in part, using a voice recognition dictation system. Departure Departure Impression: Primary Impression: Decubitus ulcers Qualified Codes: L89.154 - Pressure ulcer of sacral region, stage 4 Additional Impressions: Urinary tract infection Qualified Codes: T83.511A - Infection and inflammatory reaction due to indwelling urethral catheter, initial encounter; N39.0 - Urinary tract infection, site not specified Sepsis Qualified Codes: A41.9 - Sepsis, unspecified organism Disposition: 09 ADMITTED INPT THIS HOSP Condition: STABLE Referrals: YOLI MEJIA MD (PCP) WAGNER GUERRA DO Aug 18, 2020 10:42
[2020-08-18] MEDS ORDERED: ACETAMINOPHEN 650 MG SUPP.RECT. PR ONE (11:00)
[2020-08-18] MEDS ORDERED: MEROPENEM 1 GM in IV NORMAL SALINE 100ML 100 ML IV ONE (11:00)
[2020-08-18] MEDS ORDERED: IV NORMAL SALINE 1000ML BAG 1,000 ML IV ONE ×2 (11:00→12:00)
--- NOTE | 2020-08-18 11:07 | RAD ---
EXAM: Chest, single view. HISTORY: Fever. Altered mental status. COMPARISON: 05/18/2020. FINDINGS: A frontal view of the chest is obtained. There is no infiltrate, pleural effusion or pneumothorax. The heart is normal in size. There is a left port catheter with the tip in the right atrium. IMPRESSION: No acute pulmonary finding. Electronically signed by: Cherri Fox MD (08/18/2020 11:04 AM) [facility]
[2020-08-18 12:00] LABS: BASO % 0 % (0-3); EOS # 0.1 x10^3/uL (0.0-0.7); EOS % 0 % (0-3); HEMATOCRIT 33.7 % (36.0-47.0); HEMOGLOBIN 10.7 g/dL (12.0-15.5); LYMPH # 0.7 x10^3/uL (1.0-4.8); LYMPH % 4 % (24-48); MEAN CORPUSCULAR HEMOGLOBIN 23 pg (25-35); MEAN CORPUSCULAR HGB CONC 32 g/dL (31-37); MEAN CORPUSCULAR VOLUME 74 fL (79-100); MONO # 1.3 x10^3/uL (0.0-1.1); MONO % 8 % (0-9); NEUT # 13.9 x10^3/uL (1.8-7.7); NEUT % 87 % (31-73); PLATELET COUNT 240 x10^3/uL (140-400); RED BLOOD COUNT 4.58 x10^6/uL (3.50-5.40); RED CELL DISTRIBUTION WIDTH 15.9 % (11.5-14.5)
[2020-08-18] MEDS ORDERED: DAPTOmycin (GENERIC) IVPB 330 MG in IV NORMAL SALINE 50ML 50 ML IV ONE (12:00)
--- NOTE | 2020-08-18 12:06 | RAD ---
EXAM: Chest, single view. HISTORY: Central line placement. COMPARISON: 08/18/2020 FINDINGS: A frontal view of the chest is obtained. There is a right internal jugular catheter with the tip in the superior cavoatrial junction. There is a left port catheter with the tip in the right atrium. There is no pneumothorax. There is no consolidation or pleural effusion. The heart is normal in size. There are distended air-filled bowel within the visualized upper abdomen. IMPRESSION: 1. Right internal jugular catheter with the tip in the superior cavoatrial junction. No pneumothorax is seen. 2. Distended air-filled loops of bowel within the upper abdomen. Electronically signed by: Cherri Fox MD (08/18/2020 12:03 PM) [facility]
[2020-08-18 12:07] LABS: CALCIUM 7.9 mg/dL (8.5-10.1); CREATININE 0.8 mg/dL (0.6-1.0); GFR 76.9; POTASSIUM 4.5 mmol/L (3.5-5.1)
[2020-08-18 12:23] LABS: ALBUMIN/GLOBULIN RATIO 0.5 (1.0-1.7); MAGNESIUM 1.6 mg/dL (1.8-2.4); TOTAL BILIRUBIN 0.5 mg/dL (0.2-1.0)
[2020-08-18 12:31] LABS: BILIRUBIN,URINE NEGATIVE (NEG); CLARITY,URINE TURBID; NITRITE,URINE POSITIVE (NEG); PH,URINE 7.5 (<5.0-8.0); PROTEIN,URINE 100 mg/dL (NEG-TRACE)
[2020-08-18 12:35] LABS: COLOR,URINE YELLOW
[2020-08-18 12:37] LABS: AMORPHOUS SEDIMENT,UR PRESENT /HPF; BACTERIA,URINE MANY /HPF (0-FEW); RBC,URINE TNTC /HPF (0-2); WBC,URINE TNTC /HPF (0-4)
[2020-08-18] MEDS ORDERED: fentaNYL PF VIAL 100 MCG/2 ML VIAL IVP ONE (12:45)
[2020-08-18] MEDS ORDERED: CONTRAST GIVEN. MC PRN (12:45)
[2020-08-18] MEDS: IV NORMAL SALINE 1000ML BAG 1,000 ML IV SCH ×3 (12:46→18:03)
[2020-08-18] MEDS ORDERED: IOHEXOL 300 MG/ML 100ML VIAL. IV ONE (13:00)
[2020-08-18] MEDS ORDERED: MORPHINE SULFATE 4 MG/ML VIAL. IV PRN (13:45)
[2020-08-18] MEDS ORDERED: ONDANSETRON PF 4 MG/2 ML VIAL. IV PRN (13:45)
[2020-08-18 14:02] LABS: % BANDS 13 % (0-9); % LYMPHS 7 % (24-48); % MONOS 2 % (0-10); % SEGS 78 % (35-66); HYPOCHROMIA SLIGHT; MICROCYTOSIS SLIGHT; PLT ESTIMATE ADEQUATE (ADEQUATE); POIKILOCYTOSIS SLIGHT
[2020-08-18 14:04] LABS: ANISOCYTOSIS SLIGHT
--- NOTE | 2020-08-18 14:13 | RAD ---
CT CHEST ABD PELVIS W/CONTRAST Clinical Indication: Fever, altered mental status COMPARISON: 06/20/2019 TECHNIQUE: Multiple contiguous axial images were obtained throughout the chest, abdomen, and pelvis with the use of IV contrast. Axial images were reformatted into coronal and sagittal planes. 75 mL Omnipaque 300 was administered. One or more of the following dose reduction techniques were utilized: Automated exposure control (AEC), Adjustment of mA and/or kV according to patient size, Use of iterative reconstruction technique such as ASiR, CT scan done according to ALARA and image gently/image wisely. Findings: Left IJ Port-A-Cath. The thyroid is symmetric. There is no axillary, mediastinal, or hilar adenopathy. The thoracic aorta diameter is normal. The cardiac size is normal. There is no pericardial effusion. The central airways are patent. Elevation of the right hemidiaphragm with right basilar relaxation atelectasis. No pleural effusion is observed. There is no pneumothorax. Moderate left hydronephrosis with a 1.2 x 0.7 x 1.6 cm calculus at the ureteropelvic junction. Additional nonobstructive calculi in the lower pole of the left kidney The liver, spleen, pancreas, and adrenal glands are unremarkable. Cholelithiasis. There is no significant mesenteric or retroperitoneal adenopathy identified. There is no evidence of free intraperitoneal fluid or pneumoperitoneum. Very large colonic stool burden. Bladder is decompressed. There is no significant pelvic ascites. No significant iliac or inguinal adenopathy is identified. Degenerative changes spine IMPRESSION: 1. Moderate left hydronephrosis with a 1.0 x 0.7 x 1.6 cm calculus at the ureteropelvic junction. 2. Very large colonic stool burden, which may reflect constipation. Electronically signed by: Marcelino Etienne MD (08/18/2020 2:10 PM) [facility]
[2020-08-18] MEDS ORDERED: MELA3TAB4 PO (16:46)
[2020-08-18] MEDS ORDERED: MELA5TAB21 PO (16:46)
[2020-08-18] MEDS: MEROPENEM 500 MG in IV NORMAL SALINE 50ML 50 ML IV SCH (18:03)
[2020-08-18 19:00] VITALS: BP 100/60
[2020-08-18] MEDS: NYSTATIN TOPICAL POWDER 15GM BOTTLE. TP SCH (21:44)
[2020-08-18 22:40] LABS: BASE EXCESS ABG -4 mmol/L (-3-3); HCO3 ABG 23 mmol/L (21-28); PCO2 ABG 51 mmHg (35-46); PO2 ABG 52 mmHg (75-108); SAT O2 ABG 85 % (92-99)
[2020-08-18 22:44] LABS: FIO2 ABG 100
[2020-08-18 23:00] VITALS: BP 109/67
[2020-08-19] MEDS: MEROPENEM 500 MG in IV NORMAL SALINE 50ML 50 ML IV SCH ×4 (01:23→17:43)
[2020-08-19 03:00] VITALS: BP 108/69
[2020-08-19 06:51] LABS: BASO % 0 % (0-3); EOS # 0.1 x10^3/uL (0.0-0.7); EOS % 1 % (0-3); HEMATOCRIT 31.3 % (36.0-47.0); LYMPH # 0.8 x10^3/uL (1.0-4.8); LYMPH % 5 % (24-48); MEAN CORPUSCULAR HEMOGLOBIN 24 pg (25-35); MEAN CORPUSCULAR HGB CONC 32 g/dL (31-37); MEAN CORPUSCULAR VOLUME 74 fL (79-100); MONO # 1.2 x10^3/uL (0.0-1.1); MONO % 8 % (0-9); NEUT # 13.6 x10^3/uL (1.8-7.7); NEUT % 86 % (31-73); PLATELET COUNT 208 x10^3/uL (140-400); RED BLOOD COUNT 4.24 x10^6/uL (3.50-5.40); RED CELL DISTRIBUTION WIDTH 16.5 % (11.5-14.5); WHITE BLOOD COUNT 15.8 x10^3/uL (4.0-11.0)
[2020-08-19 07:01] LABS: CALCIUM 8.2 mg/dL (8.5-10.1); CREATININE 0.6 mg/dL (0.6-1.0); GFR 107.2; POTASSIUM 3.8 mmol/L (3.5-5.1)
[2020-08-19 07:15] VITALS: BP 102/64
[2020-08-19] MEDS: NYSTATIN TOPICAL POWDER 15GM BOTTLE. TP SCH ×2 (08:48→21:17)
[2020-08-19] MEDS: IV NORMAL SALINE 1000ML BAG 1,000 ML IV SCH ×3 (08:52→21:27)
[2020-08-19 09:17] LABS: BASE EXCESS ABG -6 mmol/L (-3-3); HCO3 ABG 18 mmol/L (21-28); PCO2 ABG 33 mmHg (35-46); PO2 ABG 138 mmHg (75-108); SAT O2 ABG 99 % (92-99)
[2020-08-19 09:19] LABS: FIO2 ABG 50
--- NOTE | 2020-08-19 09:31 | HP ---
ADMIT DATE: 08/18/2020 HISTORY OF PRESENT ILLNESS: The patient is a 45-year-old female patient, a resident at [facility] in [place], who was basically noted by the nursing staff to be lethargic, hypoxic, and febrile. On arrival, the patient was markedly tachycardic with heart rate up to 140 and temperature up to 102.2. Her white cell count was16,000 and her chemistry showed hypomagnesemia and severe hypoalbuminemia. Blood gases showed that the patient was acidotic and hypoxic. Urinalysis showed that the patient's urine was yellow, turbid and was positive for nitrite. There was large amount of leukocyte esterase, too numerous to count rbc's, too numerous to count wbc's and too many bacteria. Her blood and urine was sent for culture and sensitivity. Her chest x-ray was unremarkable and she apparently has had a central line placed successfully and has had a CT scan of the abdomen and pelvis, which basically showed moderate left-sided hydronephrosis with 1 x 0.7 x 1.6 cm calculus at the ureteropelvic junction, very large colonic stool burden, which may reflect constipation. The patient was admitted with severe sepsis and acute hypoxic respiratory failure, most likely due to metabolic acidosis as her blood gases showed a pH of 7.27, pCO2 of 51, pO2 of 52 and oxygen saturation was on 85% on FiO2 of 100%. She was given IV fluid as well as meropenem, linezolid and daptomycin, and was admitted for further evaluation and treatment. PAST MEDICAL HISTORY: Significant for progressive multiple sclerosis with functional quadriplegia. She is known to have factor V Leiden mutation, for which she is on Xarelto. She herself has never had any DVT or pulmonary emboli; however, her father and her daughter are positive for factor V Leiden and do have deep vein thrombosis. She also has chronic obstructive pulmonary disease and she continued to smoke up until recently. She has severe protein-calorie malnutrition, neurogenic bladder requiring suprapubic catheter placement. She has recurrent urinary tract infection, stage 4 sacrococcygeal decubitus ulcer. She has had d a Port-A-Cath placed successfully; however, it was complicated by pneumothorax that required chest tube placement. PAST SURGICAL HISTORY: Significant for debridement of her coccyx as well as Port-A-Cath placement, suprapubic catheter placement and chest tube placement. ALLERGIES: She has no known drug allergies. FAMILY HISTORY: Positive for factor V Leiden in her daughter and her father. SOCIAL HISTORY: She is currently a resident at [facility] in [place]. She continues to smoke. She does not drink alcohol or recreational drugs. MEDICATIONS: She is currently on following medications: She is on loratadine 10 mg once a day, dantrolene 75 mg 4 times a day, baclofen 20 mg 4 times a day, ferrous sulfate 325 mg once a day, apixaban 5 mg twice a day, oxycodone extended release 20 mg twice a day, Percocet 5/325 one tablet every 4 hours. She is on acetaminophen 650 mg every 4 hours, duloxetine 30 mg daily. She is on alprazolam 0.5 mg at bedtime, potassium chloride 20 mEq daily and lactobacillus acidophilus 1 capsule p.o. b.i.d., and polyethylene glycol 17 grams daily, senna 8.6 mg p.o. daily, ondansetron 4 mg every 4 hours, famotidine 20 mg p.o. b.i.d., Bactroban ointment applied topically twice a day, collagenase clostridium, Santyl ointment applied topically daily. She is on oxybutynin chloride 5 mg 3 times a day, Myrbetriq 50 mg daily, cholecalciferol for vitamin D3 7428-6562 mcg daily, multivitamin with folic acid 1 tablet once a day, melatonin 3 mg at bedtime. PHYSICAL EXAMINATION: GENERAL: On arrival to the Emergency Room, the patient was extremely tachypneic, tachycardic, hypoxic. VITAL SIGNS: Her heart rate was 140, blood pressure was 109/69, temperature was 102.2, respiratory rate was 24, and oxygen saturation 94%. HEAD, EYES, EARS, NOSE AND THROAT: Showed normocephalic, atraumatic. NECK: Supple. HEART: Showed normal first and second heart sounds. No gallop, rub or murmur. CHEST: Clear to auscultation. No crepitation or rhonchi. ABDOMEN: Distended, soft, nontender with suprapubic catheter in place. NEUROLOGIC: She was lethargic, but arousable. All cranial nerves intact. She has functional paraplegia with fixed flexion contracture of all 4 limbs. She has large sacrococcygeal decubitus ulcer. LABORATORY DATA: Her lab work on arrival showed a white cell count of 16,000, hemoglobin 10.7, hematocrit 33, MCV 74 and platelet count 240,000. Her blood gases on admission showed a pH of 7.27, pCO2 of 51, pO2 of 52 and bicarbonate of 23, and oxygen saturation was 85% on FiO2 of 100%. Her prothrombin time 25. INR 2.3. Her chemistry showed a serum sodium of 135, potassium 4.5, chloride 103, bicarbonate 25, anion gap of 7, BUN 22, creatinine 0.8, estimated GFR was 77 mL per minute. Her glucose was 99, calcium was 7.9, magnesium was 1.6. Lactic acid was 0.9. Total bilirubin, AST, ALT, alkaline phosphatase were normal. Total protein 6, albumin 2 and lipase was 26. Urinalysis showed the urine was yellow, turbid with a pH of 7.5, specific gravity of 1.020. There is moderate amount of protein, negative for glucose, negative for ketones. There was large amount of blood, positive for nitrite, large amount of leukocyte esterase, too numerous to count rbc's, too numerous to count wbc's and many bacteria. Her chest x-ray showed no acute pulmonary finding. Her second chest x-ray showed that she has right internal jugular catheter with a tip in the superior cavoatrial junction. No pneumothorax is seen. She has distended air fluid loops of the bowel within the upper abdomen and CT scan of the chest, abdomen and pelvis showed that the patient has moderate left-sided hydronephrosis with a 1 x 0.7 x 1.6 cm calculus at the ureteropelvic junction. There is a large colonic stool burden, which may reflect constipation. PLAN: The patient was treated with IV fluid, IV antibiotic in the form of daptomycin, linezolid and meropenem. My plan is to obviously continue with IV fluid, continue with IV antibiotics including meropenem and Zyvox. We have already consulted the Infectious Disease specialist and to assist with antibiotic management. YOLI MEJIA MD DR: JUJU/ronit JOB#: [id number] / [id number]
--- NOTE | 2020-08-19 09:35 | PN ---
DATE: 08/19/2020 SUBJECTIVE: The patient is resting, slightly propped up in bed, in no apparent distress, awake, alert. On questioning her, she denied any complaint. PHYSICAL EXAMINATION: GENERAL: When I examined her, she was pale, cachectic, but no jaundice, cyanosis, or thyromegaly. No jugular venous distension. No limb edema. VITAL SIGNS: Her heart rate was 105, blood pressure was 102/64, temperature 98.9, respiratory rate was 24, and oxygen saturation was 96% on BiPAP machine with an FiO2 of 40%, maintaining her oxygen saturation at 96%. HEAD, EYES, EARS, NOSE AND THROAT: Showed normocephalic and atraumatic. NECK: Supple with central line in the right internal jugular vein. HEART: Showed normal first and second heart sounds. No gallop or murmur. CHEST: Clear to auscultation. No crepitation or rhonchi. ABDOMEN: Distended, soft, nontender with suprapubic catheter in place. NEUROLOGIC: She was awake, alert, responding appropriately. On questioning her, all her cranial nerves intact. She has functional quadriplegia. She is mostly bedbound. Her intake and output were incompletely recorded. LABORATORY DATA: Her lab work this morning showed a white cell count is slightly down to 15,800, hemoglobin 10, hematocrit 31, MCV 74, and platelet count of 108,000. Her chemistry showed a serum sodium 141, potassium 3.8, chloride 109, bicarbonate 24, anion gap of 8, BUN 16, creatinine 0.7, estimated GFR was 107 mL per minute. Her glucose was 82, calcium was 8.2. Her urine culture showed gram-positive cocci in pairs chains in 4/4 bottles. PLAN: I will continue with Zyvox as well as meropenem and we have already consulted the Infectious Disease specialist to assist with management. YOLI MEJIA MD DR: JUJU/ronit JOB#: [id number] / [id number]
--- NOTE | 2020-08-19 10:24 | PDOC ---
Infectious Disease Note Vital Sign Vital Signs Vital Signs Date Time Temp Pulse Resp B/P (MAP) Pulse Ox O2 Delivery O2 Flow Rate FiO2 08/19/20 07:15 98.9 105 24 102/64 (77) 96 BiPAP/CPAP 98.9 08/19/20 03:00 2.0 Labs Lab Laboratory Tests Test 08/18/20 11:00 08/18/20 11:05 08/18/20 12:10 08/18/20 22:35 White Blood Count 16.0 x10^3/uL (4.0-11.0) Red Blood Count 4.58 x10^6/uL (3.50-5.40) Hemoglobin 10.7 g/dL (12.0-15.5) Hematocrit 33.7 % (36.0-47.0) Mean Corpuscular Volume 74 fL (79-100) Mean Corpuscular Hemoglobin 23 pg (25-35) Mean Corpuscular Hemoglobin Concent 32 g/dL (31-37) Red Cell Distribution Width 15.9 % (11.5-14.5) Platelet Count 240 x10^3/uL (140-400) Neutrophils (%) (Auto) 87 % (31-73) Lymphocytes (%) (Auto) 4 % (24-48) Monocytes (%) (Auto) 8 % (0-9) Eosinophils (%) (Auto) 0 % (0-3) Basophils (%) (Auto) 0 % (0-3) Neutrophils # (Auto) 13.9 x10^3/uL (1.8-7.7) Lymphocytes # (Auto) 0.7 x10^3/uL (1.0-4.8) Monocytes # (Auto) 1.3 x10^3/uL (0.0-1.1) Eosinophils # (Auto) 0.1 x10^3/uL (0.0-0.7) Basophils # (Auto) 0.0 x10^3/uL (0.0-0.2) Segmented Neutrophils % 78 % (35-66) Band Neutrophils % 13 % (0-9) Lymphocytes % 7 % (24-48) Monocytes % 2 % (0-10) Platelet Estimate Adequate (ADEQUATE) Hypochromasia Slight Poikilocytosis Slight Anisocytosis Slight Microcytosis Slight Prothrombin Time 25.0 SEC (11.7-14.0) Prothromb Time International Ratio 2.3 (0.8-1.1) Lactic Acid Level 0.9 mmol/L (0.4-2.0) Sodium Level 135 mmol/L (136-145) Potassium Level 4.5 mmol/L (3.5-5.1) Chloride Level 103 mmol/L (98-107) Carbon Dioxide Level 25 mmol/L (21-32) Anion Gap 7 (6-14) Blood Urea Nitrogen 22 mg/dL (7-20) Creatinine 0.8 mg/dL (0.6-1.0) Estimated GFR (Cockcroft-Gault) 76.9 BUN/Creatinine Ratio 28 (6-20) Glucose Level 99 mg/dL (70-99) Calcium Level 7.9 mg/dL (8.5-10.1) Magnesium Level 1.6 mg/dL (1.8-2.4) Total Bilirubin 0.5 mg/dL (0.2-1.0) Aspartate Amino Transf (AST/SGOT) 19 U/L (15-37) Alanine Aminotransferase (ALT/SGPT) 12 U/L (14-59) Alkaline Phosphatase 53 U/L (46-116) Total Protein 6.0 g/dL (6.4-8.2) Albumin 2.0 g/dL (3.4-5.0) Albumin/Globulin Ratio 0.5 (1.0-1.7) Lipase 26 U/L (73-393) Urine Collection Type U cath Urine Color Yellow Urine Clarity Turbid Urine pH 7.5 (<5.0-8.0) Urine Specific Butterfield 1.020 (1.000-1.030) Urine Protein 100 mg/dL (NEG-TRACE) Urine Glucose (UA) Negative mg/dL (NEG) Urine Ketones (Stick) Negative mg/dL (NEG) Urine Blood Large (NEG) Urine Nitrite Positive (NEG) Urine Bilirubin Negative (NEG) Urine Urobilinogen Dipstick 1.0 mg/dL (0.2 mg/dL) Urine Leukocyte Esterase Large (NEG) Urine RBC Tntc /HPF (0-2) Urine WBC Tntc /HPF (0-4) Urine Squamous Epithelial Cells Many /LPF Urine Amorphous Sediment Present /HPF Urine Bacteria Many /HPF (0-FEW) O2 Saturation 85 % (92-99) Arterial Blood pH 7.27 (7.35-7.45) Arterial Blood pCO2 at Patient Temp 51 mmHg (35-46) Arterial Blood pO2 at Patient Temp 52 mmHg (75-108) Arterial Blood HCO3 23 mmol/L (21-28) Arterial Blood Base Excess -4 mmol/L (-3-3) FiO2 100 Test 08/19/20 06:30 08/19/20 09:10 White Blood Count 15.8 x10^3/uL (4.0-11.0) Red Blood Count 4.24 x10^6/uL (3.50-5.40) Hemoglobin 10.0 g/dL (12.0-15.5) Hematocrit 31.3 % (36.0-47.0) Mean Corpuscular Volume 74 fL (79-100) Mean Corpuscular Hemoglobin 24 pg (25-35) Mean Corpuscular Hemoglobin Concent 32 g/dL (31-37) Red Cell Distribution Width 16.5 % (11.5-14.5) Platelet Count 208 x10^3/uL (140-400) Neutrophils (%) (Auto) 86 % (31-73) Lymphocytes (%) (Auto) 5 % (24-48) Monocytes (%) (Auto) 8 % (0-9) Eosinophils (%) (Auto) 1 % (0-3) Basophils (%) (Auto) 0 % (0-3) Neutrophils # (Auto) 13.6 x10^3/uL (1.8-7.7) Lymphocytes # (Auto) 0.8 x10^3/uL (1.0-4.8) Monocytes # (Auto) 1.2 x10^3/uL (0.0-1.1) Eosinophils # (Auto) 0.1 x10^3/uL (0.0-0.7) Basophils # (Auto) 0.0 x10^3/uL (0.0-0.2) Sodium Level 141 mmol/L (136-145) Potassium Level 3.8 mmol/L (3.5-5.1) Chloride Level 109 mmol/L (98-107) Carbon Dioxide Level 24 mmol/L (21-32) Anion Gap 8 (6-14) Blood Urea Nitrogen 16 mg/dL (7-20) Creatinine 0.6 mg/dL (0.6-1.0) Estimated GFR (Cockcroft-Gault) 107.2 Glucose Level 82 mg/dL (70-99) Calcium Level 8.2 mg/dL (8.5-10.1) O2 Saturation 99 % (92-99) Arterial Blood pH 7.36 (7.35-7.45) Arterial Blood pCO2 at Patient Temp 33 mmHg (35-46) Arterial Blood pO2 at Patient Temp 138 mmHg (75-108) Arterial Blood HCO3 18 mmol/L (21-28) Arterial Blood Base Excess -6 mmol/L (-3-3) FiO2 50 Micro Microbiology 08/18/20 Urine Culture - Final, Complete 08/18/20 Blood Culture - Final, Complete Objective Assessment pt seen, consult dictated Plan Plan of Care / ROSEMARY THOMAS MD Aug 19, 2020 10:24
--- NOTE | 2020-08-19 11:03 | CONS ---
DATE OF CONSULTATION: 08/19/2020 REQUESTING PHYSICIAN: Faina Frankel MD. REASON FOR CONSULTATION: Sepsis. HISTORY OF PRESENT ILLNESS: This is a 45-year-old female who has multiple sclerosis who is a [facility] resident, who was brought in because of fever and lethargy. The patient had been lethargic for maybe a day or so, hypoxic and febrile. The patient had fever. The patient does have a decubitus, although decubitus looks clean. The patient had leukocytosis and blood cultures are now positive 02/09 with Gram-positive cocci in pairs and chains. The patient has been on meropenem and one dose of daptomycin was given. The patient is more awake now, more able to communicate, still believes not back to her baseline, but denies any nausea or vomiting. Denies any chest pain, shortness of breath or abdominal pain. PAST MEDICAL HISTORY: Positive for multiple sclerosis. The patient is functionally quadriplegic and needs total care. Does have sacral decubitus, also has factor V Leiden mutation, COPD, does have suprapubic catheter and a Port-A-Cath. SOCIAL HISTORY: Negative for smoking, alcohol or illicit drug use. ALLERGIES: No known drug allergies. CURRENT MEDICATIONS: Reviewed. REVIEW OF SYSTEMS: As per HPI, all other systems reviewed are negative. PHYSICAL EXAMINATION: GENERAL: Alert, oriented female, not in distress. VITAL SIGNS: Stable with a T-max 102.2, rest of vitals are stable. HEENT: Both pupils are round and reacting. No conjunctival lesion. No lesion in the mouth. NECK: Supple, no JVP, no lymphadenopathy. LUNGS: Clear. HEART: S1, S2 regular. ABDOMEN: Soft, nontender, no organomegaly. EXTREMITIES: The patient is quadriplegic and contractures. There is a port into the left upper chest, not showing any signs of infection. LABORATORY DATA: White count is 15.8. BUN and creatinine is normal. Urinalysis showed too numerous to count wbc's. Urine culture is so far showing multiple organisms. Blood culture as I mentioned above. CT of the abdomen and pelvis done showed moderate left hydronephrosis with 1 x 0.7 x 1.6 cm calculus at the ureteropelvic junction. Chest x-ray is unremarkable for any acute changes. IMPRESSION: 1. Sepsis with blood culture positive, gram-positive cocci in pairs and chains, identification is pending. 2. Fever. 3. Leukocytosis. 4. Moderate left hydronephrosis with ureteral stone. 5. Multiple sclerosis. 6. Sacral decubitus. RECOMMENDATIONS: Continue meropenem and daptomycin. Supportive care. We will follow the cultures. The patient probably is going to need a Urology's help to put a stent or relieve the obstruction; this is probably the reason why she is bacteremic. Thank you very much, Dr. Frankel, for giving me the opportunity to participate in this patient's care. ROSEMARY THOMAS MD DR: JACQUELIN/ronit JOB#: [id number] / [id number]
[2020-08-19 11:11] VITALS: BP 107/66
[2020-08-19] MEDS: DAPTOmycin (GENERIC) IVPB 330 MG in IV NORMAL SALINE 50ML 50 ML IV SCH (12:22)
[2020-08-19 15:21] VITALS: BP 92/54
--- NOTE | 2020-08-19 17:19 | NUR ---
Wound Care Wound care consult for multiple pressure ulcers. Pt is still pending COVID 19 results. Photos assessed, instructed Abeba ALBARADO to pack wounds ith aquacel ag and cover with ABD or foam dressings. WC will follow up when COVID results are back.
--- NOTE | 2020-08-19 17:28 | NUR ---
SW following. Spoke with RN and reviewed chart. Pt on CPAP/BIPAP, IV Daptomycin, COVID pending. Wound care consulted. SW following.
[2020-08-19 20:15] VITALS: BP 114/67
[2020-08-19] MEDS: LACTOBACILLUS RHAMNOSUS GG 1 CAPSULE. PO SCH (21:17)
[2020-08-19 23:57] VITALS: BP 113/68
[2020-08-20] MEDS: MEROPENEM 500 MG in IV NORMAL SALINE 50ML 50 ML IV SCH ×4 (00:01→17:01)
[2020-08-20 03:25] VITALS: BP 117/72
[2020-08-20] MEDS: IV NORMAL SALINE 1000ML BAG 1,000 ML IV SCH ×3 (04:44→21:01)
[2020-08-20 06:16] LABS: HEMATOCRIT 27.3 % (36.0-47.0); HEMOGLOBIN 8.9 g/dL (12.0-15.5); RED BLOOD COUNT 3.76 x10^6/uL (3.50-5.40); RED CELL DISTRIBUTION WIDTH 15.9 % (11.5-14.5); WHITE BLOOD COUNT 11.3 x10^3/uL (4.0-11.0)
[2020-08-20 06:41] LABS: ALBUMIN 1.8 g/dL (3.4-5.0); ALBUMIN/GLOBULIN RATIO 0.5 (1.0-1.7); CALCIUM 7.8 mg/dL (8.5-10.1); CREATININE 0.4 mg/dL (0.6-1.0); GFR 171.1; TOTAL BILIRUBIN 0.5 mg/dL (0.2-1.0); TOTAL PROTEIN 5.3 g/dL (6.4-8.2)
[2020-08-20 06:45] LABS: POTASSIUM 2.8 mmol/L (3.5-5.1)
[2020-08-20] MEDS ORDERED: POTASSIUM CHLORIDE 20 MEQ TABLET.ER. PO ONE ×3 (07:00→09:00)
--- NOTE | 2020-08-20 07:08 | NUR ---
Reported K+ level 2.[address] Frankel, . Orders to give 40 KCL po Q1hr x 3 doses. Draw K+ level at noon.
[2020-08-20 07:10] VITALS: BP 110/65
[2020-08-20] MEDS: LACTOBACILLUS RHAMNOSUS GG 1 CAPSULE. PO SCH ×2 (08:21→20:58)
--- NOTE | 2020-08-20 10:02 | PN ---
DATE: 08/20/2020 SUBJECTIVE: The patient is resting, slightly propped up in bed, in no apparent distress, awake, alert. In questioning her, denied any complaint. Nursing staff did not voice any concern. She is now on 2 liters of oxygen, maintaining her oxygen saturation at 97%. She is afebrile and her white cell count is down from 16,000 to 11,000. Her chemistry showed she has hypokalemia with potassium of 2.8 for which she was started on potassium supplement. PHYSICAL EXAMINATION: GENERAL: When I saw her this morning, she looked pale, cachectic, but no jaundice, cyanosis or thyromegaly. No jugular venous distention. No limb edema. VITAL SIGNS: Her heart rate was 103, blood pressure was 110/65, temperature was 98.2, respiratory rate was 22, and oxygen saturation was 97% on 2 liters of oxygen. HEAD, EYES, EARS, NOSE AND THROAT: Showed normocephalic, atraumatic. NECK: Supple. HEART: Showed normal first and second heart sounds. No gallop or murmur. CHEST: Clear to auscultation. No crepitation or rhonchi. ABDOMEN: Distended, soft, and nontender with suprapubic catheter in place. NEUROLOGIC: She is awake, alert, responding appropriately. She has quadriplegia due to progressive longstanding multiple sclerosis with marked muscle wasting and fixed flexion contraction. She has large sacrococcygeal decubitus ulcer. Her intake was 100, output 250. LABORATORY DATA: As of this morning, her serum sodium was 141, potassium 2.8, chloride 109, bicarbonate 22, anion gap of 10, BUN 10, creatinine 0.4, estimated GFR was 171 mL per minute, her glucose was 58, and calcium was 7.8. Total bilirubin, AST, ALT, and alkaline phosphatase were normal. Her total protein was 5.3 and albumin was 1.8. Her prothrombin time and INR slightly elevated and urinalysis showed the urine was positive for nitrite, large amount of leukocyte esterase, too numerous to count rbc's, too numerous to count wbc's and too many bacteria. Her urine culture showed growth of 3 or more organisms isolated results consistent with colonization or contamination. Her blood cultures showed gram-positive cocci in pairs or chains in 4/4 bottles, the identification and sensitivity is still pending at the time of this dictation. ASSESSMENT: Sepsis with blood culture showing growth of gram-positive cocci in pairs and chains. CT scan showed moderate left-sided hydronephrosis with 1 x 0.7 x 1.6 cm calculus at the ureteropelvic junction. Severe constipation. Progressive longstanding multiple sclerosis with quadriplegia and neurogenic bladder and bowel. She has chronic obstructive pulmonary disease, factor V Leiden, and chronic anemia as well as stage 4 sacrococcygeal decubitus ulcer. PLAN: My plan is obviously to continue with IV antibiotic in the form of daptomycin, linezolid and meropenem. We will replenish her potassium. I will consult the interventional radiologist to see whether a percutaneous nephrostomy is an option for this lady. We will obviously have to hold her apixaban. YOLI MEJIA MD DR: JUJU/ronit JOB#: [id number] / [id number]
[2020-08-20] MEDS ORDERED: ASCO500C PO (10:42)
[2020-08-20] MEDS ORDERED: ACETAMINOPHEN 325 MG TABLET. PO PRN (10:45)
[2020-08-20] MEDS ORDERED: ANTI-COAG MONITOR BY PHARMACY. MC PRN (11:00)
--- NOTE | 2020-08-20 11:03 | PDOC ---
Infectious Disease Note Subjective Subjective pt is feeling better ROS ROS no n/v/d/sob Vital Sign Vital Signs Vital Signs Date Time Temp Pulse Resp B/P (MAP) Pulse Ox O2 Delivery O2 Flow Rate FiO2 08/20/20 08:00 Nasal Cannula 2.0 08/20/20 07:10 98.2 103 22 110/65 (80) 97 98.2 Physical Exam PHYSICAL EXAM GENERAL: Alert, oriented female, not in distress. VITAL SIGNS: vitals are stable. HEENT: Both pupils are round and reacting. No conjunctival lesion. No lesion in the mouth. NECK: Supple, no JVP, no lymphadenopathy. LUNGS: Clear. HEART: S1, S2 regular. ABDOMEN: Soft, nontender, no organomegaly. EXTREMITIES: The patient is quadriplegic and contractures. There is a port into the left upper chest, not showing any signs of infection. Labs Lab Laboratory Tests Test 08/20/20 06:00 White Blood Count 11.3 x10^3/uL (4.0-11.0) Red Blood Count 3.76 x10^6/uL (3.50-5.40) Hemoglobin 8.9 g/dL (12.0-15.5) Hematocrit 27.3 % (36.0-47.0) Mean Corpuscular Volume 73 fL (79-100) Mean Corpuscular Hemoglobin 24 pg (25-35) Mean Corpuscular Hemoglobin Concent 33 g/dL (31-37) Red Cell Distribution Width 15.9 % (11.5-14.5) Platelet Count 249 x10^3/uL (140-400) Sodium Level 141 mmol/L (136-145) Potassium Level 2.8 mmol/L (3.5-5.1) Chloride Level 109 mmol/L (98-107) Carbon Dioxide Level 22 mmol/L (21-32) Anion Gap 10 (6-14) Blood Urea Nitrogen 10 mg/dL (7-20) Creatinine 0.4 mg/dL (0.6-1.0) Estimated GFR (Cockcroft-Gault) 171.1 BUN/Creatinine Ratio 25 (6-20) Glucose Level 58 mg/dL (70-99) Calcium Level 7.8 mg/dL (8.5-10.1) Total Bilirubin 0.5 mg/dL (0.2-1.0) Aspartate Amino Transf (AST/SGOT) 22 U/L (15-37) Alanine Aminotransferase (ALT/SGPT) 15 U/L (14-59) Alkaline Phosphatase 43 U/L (46-116) Total Protein 5.3 g/dL (6.4-8.2) Albumin 1.8 g/dL (3.4-5.0) Albumin/Globulin Ratio 0.5 (1.0-1.7) Micro Microbiology 08/18/20 Urine Culture - Final, Complete BLOOD CULTURE Final GRAM POSITIVE COCCI IN PAIRS OR CHAINS IN 4 OF 4 BOTTLES(BOTH BOTTLES THIS SET);REPRESENTING 2 SETS DRAWN. THE RESULT WAS CALLED TO ABIOLA COREA(6S)ON 08/19/20 AT 0818 BY Alena CLINE. THE BLOOD CULTURE HAS BEEN SENT TO [facility] FOR FURTHER WORKUP. Objective Assessment IMPRESSION: 1. Sepsis with blood culture positive, gram-positive cocci in pairs and chains, identification is pending. 2. Fever. 3. Leukocytosis. 4. Moderate left hydronephrosis with ureteral stone. 5. Multiple sclerosis. 6. Sacral decubitus. Plan Plan of Care cont antibiotics cont supportive care ROSEMARY THOMAS MD Aug 20, 2020 11:03
[2020-08-20 11:14] VITALS: BP 107/64
[2020-08-20] MEDS: NYSTATIN TOPICAL POWDER 15GM BOTTLE. TP SCH ×2 (11:29→21:00)
[2020-08-20] MEDS: APIXABAN 5 MG TABLET. PO SCH ×2 (11:33→20:58)
[2020-08-20] MEDS: DULoxetine HCL 30 MG CAPSULE.DR PO SCH (11:33)
[2020-08-20] MEDS: DANTROLENE SODIUM 25 MG CAPSULE PO SCH ×3 (11:33→20:58)
[2020-08-20] MEDS: DAPTOmycin (GENERIC) IVPB 330 MG in IV NORMAL SALINE 50ML 50 ML IV SCH (11:56)
--- NOTE | 2020-08-20 14:28 | NUR ---
Wound/Ostomy Care Wound Type/Assessment: Patient seen per wound care consult. See wound assessment. patient is well known to us from previous admissions. Patient has pressure ulcers to the right ischium, left ischium, sacrum and lateral sacral. All wounds cleansed, assessed, and measured. Treatment Recommendations/Plan: recommendations to apply Aquacel Ag to all wounds and cover with foam dressings. Dressings applied and patient tolerated well. Education provided: N/A Offloading surface/device: Patient is currently on a P-500 bed. bilateral heels floated. Recommended Referrals/Tests: N/A Discharge Recommendations for dressings: Continue current treatment. Patient repositioned to left side. Dressing change instructions left in room. Patient to transfer to [facility]. Will follow patient regarding wound care. Bed lowered and call light in reach.
[2020-08-20 14:52] VITALS: BP 103/54
--- NOTE | 2020-08-20 15:36 | NUR ---
Pt arrived on unit to room 204 from 6S at approx 1450 via p500 bed. Pt positioned in bed on left side, watching TV comfortably. NS running @ 150 mL/hr. Pt has no complaints at this time. Will assume care of this pt and monitor closely.
--- NOTE | 2020-08-20 17:17 | NUR ---
SW following. Spoke with RN and reviewed chart. Pt on 2l 02, IV Daptomycin and IV Meropenem. Pt COVID negative. Pt from [facility], , (fax). JORGE phoned and faxed clinicals to the facility. Pt transferred to and LALA Olvera to follow.
[2020-08-20 19:00] VITALS: BP 106/69
[2020-08-20] MEDS ORDERED: ALPRAZolam 0.5 MG TABLET PO SCH (21:00)
[2020-08-20 22:46] VITALS: BP 108/83
[2020-08-21] MEDS: MEROPENEM 500 MG in IV NORMAL SALINE 50ML 50 ML IV SCH ×4 (00:21→16:53)
[2020-08-21 02:44] VITALS: BP 105/69
[2020-08-21] MEDS: IV NORMAL SALINE 1000ML BAG 1,000 ML IV SCH ×3 (04:50→11:32)
[2020-08-21 05:54] LABS: HEMATOCRIT 31.7 % (36.0-47.0); HEMOGLOBIN 10.1 g/dL (12.0-15.5); RED BLOOD COUNT 4.4 x10^6/uL (3.50-5.40); RED CELL DISTRIBUTION WIDTH 16.3 % (11.5-14.5); WHITE BLOOD COUNT 12.1 x10^3/uL (4.0-11.0)
[2020-08-21 06:27] LABS: ALBUMIN/GLOBULIN RATIO 0.5 (1.0-1.7); CREATININE 0.4 mg/dL (0.6-1.0); GFR 171.1; POTASSIUM 3.8 mmol/L (3.5-5.1); TOTAL BILIRUBIN 0.4 mg/dL (0.2-1.0); TOTAL PROTEIN 5.8 g/dL (6.4-8.2)
[2020-08-21 07:00] VITALS: BP 101/60
--- NOTE | 2020-08-21 07:41 | PDOC ---
Infectious Disease Note Subjective Subjective pt is feeling better ROS ROS no n/v/d/ Vital Sign Vital Signs Vital Signs Date Time Temp Pulse Resp B/P (MAP) Pulse Ox O2 Delivery O2 Flow Rate FiO2 08/21/20 07:00 98.4 91 21 101/60 (74) 97 Nasal Cannula 2.0 98.4 Physical Exam PHYSICAL EXAM GENERAL: Alert, oriented female, not in distress. VITAL SIGNS: vitals are stable. HEENT: Both pupils are round and reacting. No conjunctival lesion. No lesion in the mouth. NECK: Supple, no JVP, no lymphadenopathy. LUNGS: Clear. HEART: S1, S2 regular. ABDOMEN: Soft, nontender, no organomegaly. EXTREMITIES: The patient is quadriplegic and contractures. There is a port into the left upper chest, not showing any signs of infection. Labs Lab Laboratory Tests Test 08/20/20 12:25 08/21/20 05:05 Potassium Level 3.3 mmol/L (3.5-5.1) 3.8 mmol/L (3.5-5.1) White Blood Count 12.1 x10^3/uL (4.0-11.0) Red Blood Count 4.40 x10^6/uL (3.50-5.40) Hemoglobin 10.1 g/dL (12.0-15.5) Hematocrit 31.7 % (36.0-47.0) Mean Corpuscular Volume 72 fL (79-100) Mean Corpuscular Hemoglobin 23 pg (25-35) Mean Corpuscular Hemoglobin Concent 32 g/dL (31-37) Red Cell Distribution Width 16.3 % (11.5-14.5) Platelet Count 300 x10^3/uL (140-400) Sodium Level 142 mmol/L (136-145) Chloride Level 109 mmol/L (98-107) Carbon Dioxide Level 25 mmol/L (21-32) Anion Gap 8 (6-14) Blood Urea Nitrogen 5 mg/dL (7-20) Creatinine 0.4 mg/dL (0.6-1.0) Estimated GFR (Cockcroft-Gault) 171.1 BUN/Creatinine Ratio 13 (6-20) Glucose Level 76 mg/dL (70-99) Calcium Level 8.0 mg/dL (8.5-10.1) Total Bilirubin 0.4 mg/dL (0.2-1.0) Aspartate Amino Transf (AST/SGOT) 16 U/L (15-37) Alanine Aminotransferase (ALT/SGPT) 14 U/L (14-59) Alkaline Phosphatase 45 U/L (46-116) Total Protein 5.8 g/dL (6.4-8.2) Albumin 2.0 g/dL (3.4-5.0) Albumin/Globulin Ratio 0.5 (1.0-1.7) Micro BC enterococcus Objective Assessment IMPRESSION: 1. Sepsis with blood culture positive, gram-positive cocci in pairs and chains, identification is pending. 2. Fever. 3. Leukocytosis. 4. Moderate left hydronephrosis with ureteral stone. 5. Multiple sclerosis. 6. Sacral decubitus. Plan Plan of Care cont antibiotics,, dapto and meropenem cont supportive care will need urology, ROSEMARY THOMAS MD Aug 21, 2020 07:41
[2020-08-21] MEDS: DULoxetine HCL 30 MG CAPSULE.DR PO SCH (07:56)
[2020-08-21] MEDS: LACTOBACILLUS RHAMNOSUS GG 1 CAPSULE. PO SCH (07:56)
[2020-08-21] MEDS: APIXABAN 5 MG TABLET. PO SCH (07:56)
[2020-08-21] MEDS: DANTROLENE SODIUM 25 MG CAPSULE PO SCH ×3 (07:57→16:51)
[2020-08-21] MEDS: NYSTATIN TOPICAL POWDER 15GM BOTTLE. TP SCH (07:58)
--- NOTE | 2020-08-21 09:55 | PN ---
DATE: 08/21/2020 SUBJECTIVE: The patient is resting, slightly propped up in bed, in no apparent respiratory distress. She is awake, alert. Nursing staff stated that she has multiple loose bowel movements. The patient refused rectal tube. PHYSICAL EXAMINATION: GENERAL: When I examined her, she was pale, cachectic, but no jaundice, cyanosis or thyromegaly. No jugular venous distention. No lower limb edema. VITAL SIGNS: Her heart rate was 91, blood pressure was 101/60, temperature of 98.4, respiratory rate 21 and oxygen saturation was 97% on 2 liters of oxygen. HEAD, EYES, EARS, NOSE AND THROAT: Showed normocephalic, atraumatic. NECK: Supple. HEART: Normal first and second heart sounds. No gallop, rub or murmur. CHEST: Clear to auscultation. No crepitation or rhonchi. ABDOMEN: Distended, soft. Suprapubic catheter in place. NEUROLOGIC: She is awake, alert, responding appropriately. All cranial nerves intact. She has quadriplegia with marked muscle wasting and fixed flexion contraction of all 4 limbs. She has neurogenic bladder requiring suprapubic catheter, has stage 4 sacrococcygeal decubitus ulcer. Her intake over the last 24 hours was 1450, output was 2900. LABORATORY DATA: Her lab work as of this morning showed a white cell count of 12,100; hemoglobin 10; hematocrit 32; MCV 72 and platelet count 300,000. Serum sodium 142, potassium 3.8, chloride 109, bicarbonate 25, anion gap of 8, BUN 5, creatinine 0.4, estimated GFR was 171 mL per minute. Her glucose was 76, calcium 8. Total bilirubin, AST, ALT, and alkaline phosphatase were normal. Total protein 5.8, albumin 2. ASSESSMENT: 1. Sepsis with blood culture showing growth of gram-positive cocci in pairs and chains. 2. CT scan showed moderate left-sided hydronephrosis with 1 x 0.7 x 1.6 cm calculus at the ureteropelvic junction. 3. Severe constipation. 4. Progressive longstanding multiple sclerosis with quadriplegia and neurogenic bladder and bowel. 5. Chronic obstructive pulmonary disease. 6. Factor V Leiden. 7. Chronic anemia. 8. Stage 4 sacrococcygeal decubitus ulcer. PLAN: Obviously to continue with IV antibiotic in the form of daptomycin, linezolid and meropenem. She has high potassium. Her potassium was replenished and today's potassium is normalized at 3.8. I did speak with Dr. Taylor about putting a percutaneous nephrostomy tube and his recommendation was that she might be better off with the urologist and doing cystoscopy, retrograde pyelography and stone retrieval. Our social workers are attempting to see if we can transfer her to [facility] to be seen by urologist. YOLI MEJIA MD DR: JUJU/ronit JOB#: [id number] / [id number]
[2020-08-21 10:36] VITALS: BP 114/73
--- NOTE | 2020-08-21 10:37 | NUR ---
SS following for discharge planning. SS reviewed pt chart and discussed with pt RN. Pt is LTC resident from [facility] [place], ; fax [phone]. Pt is on IV Daptomycin and IV Meropenem. COVID19 negative. Pt has blockage in ureter and physician requesting transfer to [facility] for urology. SS contacted [facility] transfer team, ; fax [phone], and made request for transfer. SS faxed face sheet as requested. PENDING SALE TO [facility] requested that SS contact them at noon to check on bed availability. It was recommended that SS attempt [facility]. SS contacted the [facility] transfer team, ; fax [phone], and made request for transfer. SS faxed face sheet as requested. [facility] reported that they will have there Urology team contact physician. SS will continue to follow for discharge planning. .
[2020-08-21] MEDS: DAPTOmycin (GENERIC) IVPB 330 MG in IV NORMAL SALINE 50ML 50 ML IV SCH (11:31)
--- NOTE | 2020-08-21 12:33 | NUR ---
SS following up with discharge planning. Pt accepted for transfer at [facility]. Accepting physician, Dr. Kaylee Murray. SS currently awaiting bed assignment and report number. Packet, transfer form, and ambulance form on the chart.
--- NOTE | 2020-08-21 12:53 | DS ---
DATE OF DISCHARGE: 08/21/2020 DISCHARGE TRANSFER SUMMARY HOSPITAL COURSE: The patient is a 45-year-old female patient, a resident at [facility], who was admitted through the Emergency Room with sepsis due to urinary tract infection. Her blood culture has eventually shown growth of gram-positive cocci in pairs and chains. CT scan showed moderate left-sided hydronephrosis with that was 1 x 0.7 x 1.6 cm calculus at the ureteropelvic junction. She was also found to have severe constipation. She was stabilized when her blood pressure has normalized and her white cell count is trending down from 16,000 to 12,000 and a decision was made to transfer her to [facility] after consulting the urologist who kindly accepted her and she will be admitted under the hospitalist group there as she has moderate left-sided hydronephrosis with 1 x 0.7 x 1.6 cm calculus at the ureteropelvic junction. PHYSICAL EXAMINATION: GENERAL: When I saw her this morning, she looked well and was clearly in no apparent respiratory distress. No pallor, jaundice, cyanosis or thyromegaly. No jugular venous distention. No lower limb edema. VITAL SIGNS: Her heart rate was 91, blood pressure was 101/60, temperature was 98.4, respiratory rate 21 and oxygen saturation was 97% on 2 liters of oxygen. HEAD, EYES, EARS, NOSE AND THROAT: Showed normocephalic, atraumatic. NECK: Supple. HEART: Normal first and second heart sounds. No gallop, rub or murmur. CHEST: Clear to auscultation. No crepitation or rhonchi. ABDOMEN: Distended, soft. Suprapubic catheter in place. NEUROLOGIC: She is awake, alert, responding appropriately. All cranial nerves intact. She has quadriplegia with marked muscle wasting and fixed flexion contraction of all 4 limbs. She has neurogenic bladder requiring suprapubic catheter, has stage 4 sacrococcygeal decubitus ulcer. Her intake over the last 24 hours was 1450, output was 2900. LABORATORY DATA: Showed that her serum sodium was 142, potassium 3.8, chloride 109, bicarbonate 25, anion gap of 8, BUN 5, creatinine 0.4, estimated GFR was 171 mL per minute. Her glucose was 76, calcium was 8. Total bilirubin, AST, ALT, alkaline phosphatase were normal. Total protein 5.8, albumin 2. Her white cell count was 12,000; hemoglobin 10; hematocrit 32; MCV 72 and platelet count of 300,000. Her urine culture showed that there are 3 or more organisms isolated, results consistent with colonization or contamination. However, her blood cultures have grown gram-positive cocci identified as Enterococcus faecalis sensitive to vancomycin. DISCHARGE MEDICATIONS: She was transferred to [facility] to continue potassium chloride 20 mEq 3 times a day, alprazolam 0.5 mg at bedtime, duloxetine 30 mg daily, dantrolene 75 mg 4 times a day, apixaban 5 mg twice a day, acetaminophen 650 mg every 4 hours, lactobacillus rhamnosus 1 capsule twice a day, daptomycin 330 mg once a day, nystatin 1 application twice a day and meropenem 500 mg IV every 6 hours, sodium chloride 150 mL per hour. FINAL DISCHARGE DIAGNOSES: 1. Sepsis with blood culture showed growth of gram-positive cocci in pairs and chains identified as Enterococcus faecalis that is vancomycin sensitive. 2. CT scan showed moderate left-sided hydronephrosis with 1 x 0.7 x 1.6 cm calculus at the ureteropelvic junction. 3. Severe constipation. 4. Progressive longstanding multiple sclerosis, quadriplegia and neurogenic bladder and bowel. 5. Chronic obstructive pulmonary disease. 6. Factor V Leiden. 7. Chronic anemia. 8. Stage 4 sacrococcygeal decubitus. YOLI MEJIA MD DR: JUJU/ronit JOB#: [id number] / [id number]
[2020-08-21] MEDS ORDERED: POTASSIUM CHLORIDE 20 MEQ TABLET.ER. PO SCH (14:00)
[2020-08-21 14:38] VITALS: BP 104/65
--- NOTE | 2020-08-21 15:08 | NUR ---
SS following up with discharge planning. SS received notification that pt has bed at [facility]. Bed# 437. Report# [id number]. Pt will discharge today and go to [place] at 1730 via [facility] ambulance. Packet, ambulance form, and transfer form on the chart.
--- NOTE | 2020-08-21 18:46 | NUR ---
Discharge Note: LENNY EVERETT BISMARCK Discharge instructions and discharge home medications reviewed with Other facility Earnestine RN at [facility] and a copy given. All questions have been answered and understanding verbalized. The following instructions and handouts were given: sepsis, UTI, wound care instructions Patient discharged with TL IJ and rectal tube. Pictures taken of patients wounds and placed in chart Patient discharged to [facility] with Ambulance Personnel via Stretcher
== END 2020-08-21 18:49 | disposition short-term general hospital (02) | DRG 871 ==
LOC: ER 10:24 → 6 SOUTH 13:13 → 2 NORTH 08-20 14:52
PROVIDERS: ADMIT Internal Medicine; ATTEND Internal Medicine
PROC: 02HV33Z Insertion of Infusion Device into Superior Vena Cava, Percutaneous Approach (ICD-10-PCS; principal; 2020-08-18)
PROC: B548ZZA Ultrasonography of Superior Vena Cava, Guidance (ICD-10-PCS; 2020-08-18)
PROC: 5A09357 Assistance with Respiratory Ventilation, Less than 24 Consecutive Hours, Continuous Positive Airway Pressure (ICD-10-PCS; 2020-08-19)
DX: A41.81 Sepsis due to Enterococcus (principal); L89.154 Pressure ulcer of sacral region, stage 4; R53.2 Functional quadriplegia; J96.01 Acute respiratory failure with hypoxia; D68.51 Activated protein C resistance; K59.2 Neurogenic bowel, not elsewhere classified; N13.6 Pyonephrosis; Z16.21 Resistance to vancomycin; D64.9 Anemia, unspecified; E83.42 Hypomagnesemia; E87.6 Hypokalemia; E88.09 Other disorders of plasma-protein metabolism, not elsewhere classified; F17.200 Nicotine dependence, unspecified, uncomplicated; F32.9 Major depressive disorder, single episode, unspecified; F41.9 Anxiety disorder, unspecified; Z20.828 Contact with and (suspected) exposure to other viral communicable diseases; R65.20 Severe sepsis without septic shock; G35 Multiple sclerosis; J44.9 Chronic obstructive pulmonary disease, unspecified; K59.00 Constipation, unspecified; N31.9 Neuromuscular dysfunction of bladder, unspecified; Z79.01 Long term (current) use of anticoagulants; Z86.14 Personal history of Methicillin resistant Staphylococcus aureus infection; Z86.19 Personal history of other infectious and parasitic diseases
CPT/HCPCS: 36415; 36600; 71045; 71260; 74177; 80048; 80053; 81001; 82805; 83605; 83690; 83735; 84132; 85007; 85025; 85027; 85610; 87040; 87077; 87086; 87186; 87205; 94660; 96365; 96367; 96375; 99285; J0878; J2020; J2185; J3010; J7030; Q9967; G0378; U0003-CS

== ENCOUNTER 2021-03-01 13:52 | Inpatient (IN) | payer MEDICARE, OTHER ==
[~2021-03-01] VITALS: Ht 157.5 cm; Wt 56.4 kg
[~2021-03-01 13:52] MED LIST changes: +ASCO500C PO; +FLUC100T7 PO; +MELA3TAB4 PO; +MELA5TAB21 PO; +MIRA25TA PO; -MIRA50TA PO; +PREN1TAB PO
[2021-03-01] MEDS ORDERED: IV NORMAL SALINE 1000ML BAG 1,000 ML IV ONE ×2 (14:30→17:30)
[2021-03-01] MEDS ORDERED: PIPERACILLIN/TAZOBACTAM 4.5 GM in IV NORMAL SALINE 100ML 100 ML IV ONE (14:30)
[2021-03-01 14:33] LABS: BASO # 0.1 x10^3/uL (0.0-0.2); BASO % 1 % (0-3); EOS % 0 % (0-3); HEMOGLOBIN 11.6 g/dL (12.0-15.5); LYMPH # 0.7 x10^3/uL (1.0-4.8); LYMPH % 5 % (24-48); MEAN CORPUSCULAR HEMOGLOBIN 24 pg (25-35); MEAN CORPUSCULAR HGB CONC 32 g/dL (31-37); MEAN CORPUSCULAR VOLUME 74 fL (79-100); MONO # 0.6 x10^3/uL (0.0-1.1); MONO % 5 % (0-9); NEUT # 10.8 x10^3/uL (1.8-7.7); NEUT % 89 % (31-73); PLATELET COUNT 447 x10^3/uL (140-400); RED BLOOD COUNT 4.85 x10^6/uL (3.50-5.40); RED CELL DISTRIBUTION WIDTH 16.5 % (11.5-14.5); WHITE BLOOD COUNT 12.2 x10^3/uL (4.0-11.0)
[2021-03-01 14:42] LABS: PROTHROMBIN TIME PATIENT 17.8 SEC (11.7-14.0)
--- NOTE | 2021-03-01 14:43 | RAD ---
EXAM: Chest, single view. HISTORY: Fever. Hypoxia. COMPARISON: 09/18/2020 FINDINGS: A frontal view of the chest is obtained. There is elevation of the right hemidiaphragm with suspected small right pleural effusion and right lower lobe atelectasis or infiltrate. There is a pr ominent cardiac silhouette. There is no pneumothorax. IMPRESSION: Elevation of the right hemidiaphragm with suspected right lower lobe atelectasis or infil trate and small right pleural effusion. This can be further assessed with a lateral radiograph. Electronically signed by: Cherri Fox MD (03/01/2021 2:41 PM) [id number]
--- NOTE | 2021-03-01 14:57 | EKG ---
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
--- NOTE | 2021-03-01 15:19 | PHYS DOC ---
Past Medical History Past Medical History: Anxiety, COPD, Depression, Pneumonia, UTI, Other Additional Past Medical Histor: MS,FACTOR 5,WOUND ON COCCYX ([facility],MARIA EUGENIA M CERTIFIED LEGAL SECRETARY SPECIALIST) Past Surgical History: Other Additional Past Surgical Histo: DEBRIDMENT ON COCCYX; suprapubic cath ([facility],MARIA EUGENIA M CERTIFIED LEGAL SECRETARY SPECIALIST) Smoking Status: Former Smoker Alcohol Use: None Drug Use: Marijuana ([facility],MARIA EUGENIA M CERTIFIED LEGAL SECRETARY SPECIALIST) General Adult EDM: Chief Complaint: ALTERED MENTAL STATUS HPI: HPI: Patient is a 45 year old female who presents with different like she is healthcare by EMS who states that the nursing facility stated that as of this morning patient was obtunded and oriented fever. Patient got here she is alert and oriented x3. She just did not know what year it was. Otherwise she is able to appropriately communicate. Patient was also only 88% on room air and she does not usually have to wear oxygen. On 2 L she is 91%. Patient does smell strongly of urine. She has a suprapubic catheter in place. She also has a chronic wound on her coccyx of which she is done through debridement for and it is covered with a clean dressing. Patient states that she has chronic pain in this area. Patient denies chest pain, shortness of air, cough, diarrhea, constipation, abdominal pain, headache, dizziness, vision changes, new numbness or tingling, no weaknesses. Patient's heart rate is in the 130s upon arrival. Patient's temperature upon arrival was 98 orally. (BANNER,MARIA EUGENIA M CERTIFIED LEGAL SECRETARY SPECIALIST) Review of Systems: Review of Systems: Constitutional: +fever or chills. [] Eyes: Denies change in visual acuity. [] HENT: Denies nasal congestion or sore throat. [] Respiratory: Denies cough or shortness of breath. [] Cardiovascular: Denies chest pain or edema. [] GI: Denies abdominal pain, nausea, vomiting, bloody stools or diarrhea. [] : Denies dysuria. [] Musculoskeletal: Denies back pain or joint pain. [] Integument: Denies rash. [] Neurologic: Denies headache, focal weakness or sensory changes. + Altered mental status [] Endocrine: Denies polyuria or polydipsia. [] Lymphatic: Denies swollen glands. [] Psychiatric: Denies depression or anxiety. [] (BAFUS,MARIA EUGENIA M CERTIFIED LEGAL SECRETARY SPECIALIST) Heart Score: C/O Chest Pain: No Risk Factors: Risk Factors: DM, Current or recent (<one month) smoker, HTN, HLP, family history of CAD, obesity. Risk Scores: Score 0 - 3: 2.5% MACE over next 6 weeks - Discharge Home Score 4 - 6: 20.3% MACE over next 6 weeks - Admit for Clinical Observation Score 7 - 10: 72.7% MACE over next 6 weeks - Early Invasive Strategies (MARIA EUGENIA BOWSER APRN) Current Medications: Current Medications Medications (Trade) Dose Ordered Sig/Amber Start Time Stop Time Status Last Admin Dose Admin Piperacillin Sod/ Tazobactam Sod 4.5 gm/Sodium Chloride 100 ml @ 200 mls/hr 1X ONCE 03/01/21 14:30 03/01/21 14:59 Sodium Chloride 1,000 ml @ 1,000 mls/hr 1X ONCE 03/01/21 14:30 03/01/21 15:29 03/01/21 14:30 1,000 MLS/HR (MARIA EUGENIA BOWSER APRN) Allergies: Allergies: Allergies Coded Allergies Type Severity Reaction Last Updated Verified I S O L A T I O N *CONTACT* Allergy Unknown 05/20/20 Yes No Known Medication Allergies Allergy Unknown 04/28/17 Yes (MARIA EUGENIA BOWSER APRN) Physical Exam: PE: Constitutional: Well developed, well nourished, no acute distress, non-toxic appearance. [] HENT: Normocephalic, atraumatic, bilateral external ears normal, oropharynx moist, no oral exudates, nose normal. [] Eyes: PERRLA, EOMI, conjunctiva normal, no discharge. [] Neck: Normal range of motion, no tenderness, supple, no stridor. [] Cardiovascular:Heart rate tachycardic regular rhythm, no murmur [] Lungs & Thorax: Bilateral upper breath sounds clear lower diminished to auscultation [] Abdomen: Bowel sounds normal, soft, no tenderness, no masses, no pulsatile masses. [] Skin: Warm, dry, no erythema, no rash. Dressed coccyx wound [] Back: No tenderness, no CVA tenderness. [] Extremities: No tenderness, no cyanosis, no clubbing, ROM intact, no edema. [] Neurologic: Alert and oriented X 3, normal motor function, normal sensory function, no focal deficits noted. [] Psychologic: Affect normal, judgement normal, mood normal. [] (MARIA EUGENIA BOWSER APRN) Current Patient Data: Labs: Laboratory Tests Test 03/01/21 14:18 White Blood Count 12.2 x10^3/uL (4.0-11.0) H Red Blood Count 4.85 x10^6/uL (3.50-5.40) Hemoglobin 11.6 g/dL (12.0-15.5) L Hematocrit 36.0 % (36.0-47.0) Mean Corpuscular Volume 74 fL (79-100) L Mean Corpuscular Hemoglobin 24 pg (25-35) L Mean Corpuscular Hemoglobin Concent 32 g/dL (31-37) Red Cell Distribution Width 16.5 % (11.5-14.5) H Platelet Count 447 x10^3/uL (140-400) H Neutrophils (%) (Auto) 89 % (31-73) H Lymphocytes (%) (Auto) 5 % (24-48) L Monocytes (%) (Auto) 5 % (0-9) Eosinophils (%) (Auto) 0 % (0-3) Basophils (%) (Auto) 1 % (0-3) Neutrophils # (Auto) 10.8 x10^3/uL (1.8-7.7) H Lymphocytes # (Auto) 0.7 x10^3/uL (1.0-4.8) L Monocytes # (Auto) 0.6 x10^3/uL (0.0-1.1) Eosinophils # (Auto) 0.0 x10^3/uL (0.0-0.7) Basophils # (Auto) 0.1 x10^3/uL (0.0-0.2) Platelet Estimate Pending Prothrombin Time 17.8 SEC (11.7-14.0) H Prothrombin Time INR 1.5 (0.8-1.1) H Laboratory Tests 03/01/21 14:18 (MARIA EUGENIA BOWSER APRN) EKG: EK and read by Dr. Shaw is sinus tachycardia no STEMI (MARIA EUGENIA BOWSER APRN) Radiology/Procedures: Radiology/Procedures: [] Impression: [facility] [address] [place], [place] [id number] IMAGING REPORT Signed PATIENT: LENNY EVERETT AACCOUNT: [id number] : 1975 LOCATION: ER AGE: 45 SEX: F EXAM STATUS: PRE ER ORD. PHYSICIAN: MARIA EUGENIA BOWSER APRN REASON: hypoxia, fever PROCEDURE: PORTABLE CHEST 1V EXAM: Chest, single view. HISTORY: Fever. Hypoxia. COMPARISON: 09/18/2020 FINDINGS: A frontal view of the chest is obtained. There is elevation of the right hemidiaphragm with suspected small right pleural effusion and right lower lobe atelectasis or infiltrate. There is a prominent cardiac silhouette. There is no pneumothorax. IMPRESSION: Elevation of the right hemidiaphragm with suspected right lower lobe atelectasis or infiltrate and small right pleural effusion. This can be further assessed with a lateral radiograph. Electronically signed by: Cherri Duran MD (03/01/2021 2:41 PM) [id number] DICTATED and SIGNED BY: CHERRI DRUAN MD DATE: 03/01/21 [id number] 0 (MARIA EUGENIA BOWSER APRN) Course & Med Decision Making: Course & Med Decision Making Pertinent Labs and Imaging studies reviewed. (See chart for details) See HPI. Alert and oriented x 3. Speaks in full sentences. She is contracted. Skin pink warm and dry. Suprapubic catheter in place. Patient has a history of COPD, chronic osteomyelitis, kidney stone, pressure ulcer stage IV on left buttock, neuromuscular dysfunction of bladder, muscle wasting and atrophy, dysarthria and anarthria, aphasia, vitamin deficiency, GERD, anxiety, chronic pain, nicotine dependence, factor V, pression, fistula of intestine, sacral ulcer, hypotension, lack of coordination, reduced mobility, overactive bladder. She is a full code. I have spoken to Dr. Frankel for admission. He states to add in Zyvox for the patient. He states to go ahead and give her another liter of fluid. Patient's heart rate has come down to anywhere from 108-110. [] (MARIA EUGENIA BOWSER APRN) Dragon Disclaimer: Dragon Disclaimer: This electronic medical record was generated, in whole or in part, using a voice recognition dictation system. (MARIA EUGENIA BOWSER APRN) Departure Departure Impression: Primary Impression: Pneumonia Qualified Codes: J18.9 - Pneumonia, unspecified organism Additional Impressions: UTI (urinary tract infection) Qualified Codes: N39.0 - Urinary tract infection, site not specified AMS (altered mental status) Qualified Codes: R41.82 - Altered mental status, unspecified Disposition: 09 ADMITTED INPATIENT Admitting Physician: Madi. Eisenberg (MARIA EUGENIA BOWSER APRN) Condition: STABLE Referrals: YOLI FRANKEL MD (PCP) Attending Signature Attending Signature I have participated in the care of this patient and I have reviewed and agree with all pertinent clinical information above including history, exam, and recommendations. (DEDE SHAW MD) MARIA EUGENIA BOWSER APRN Mar 01, 2021 15:19 DEDE SHAW MD Mar 03, 2021 07:14
[2021-03-01 15:32] LABS: CREATININE 0.4 mg/dL (0.6-1.0); GFR 171.1; POTASSIUM 4.7 mmol/L (3.5-5.1)
[2021-03-01 15:33] LABS: BILIRUBIN,URINE NEGATIVE (NEG); CLARITY,URINE CLOUDY; COLOR,URINE YELLOW; NITRITE,URINE POSITIVE (NEG); PH,URINE 8.5 (<5.0-8.0); PROTEIN,URINE 30 mg/dL (NEG-TRACE)
[2021-03-01 15:38] LABS: ALBUMIN 2.8 g/dL (3.4-5.0); ALBUMIN/GLOBULIN RATIO 0.7 (1.0-1.7); TOTAL BILIRUBIN 0.4 mg/dL (0.2-1.0); TOTAL PROTEIN 6.9 g/dL (6.4-8.2)
[2021-03-01 15:50] LABS: AMORPHOUS SEDIMENT,UR PRESENT /HPF
[2021-03-01 15:51] LABS: BACTERIA,URINE MANY /HPF (0-FEW); WBC,URINE >40 /HPF (0-4)
[2021-03-01 15:52] LABS: RBC,URINE OCC /HPF (0-2)
[2021-03-01 17:50] LABS: % BASOS 1 % (0-3); % LYMPHS 7 % (24-48); % MONOS 6 % (0-10); % SEGS 86 % (35-66)
[2021-03-01 17:51] LABS: HYPOCHROMIA SLIGHT; MICROCYTOSIS SLIGHT; PLT ESTIMATE INCREASED (ADEQUATE)
[2021-03-01 17:52] LABS: ANISOCYTOSIS SLIGHT; POIKILOCYTOSIS SLIGHT; STOMATOCYTES FEW
--- NOTE | 2021-03-01 20:18 | NUR ---
Pt arrived to floor via gurney. Transferred to be per this RN and SHOP WORKER. MRSA swab obtained. Gown that pt arrived in had food particles on it and pt appeared unkempt. DEVONTE Hwang in room to assist with CHG bath. Multiple areas of skin breakdown noted. Bilat arm pit, bilat groin, under pannus, and slight redness noted under bilat breasts. All areas have nystatin powder caked on them. Caked on nystatin cleaned off. Area under front part of arm pit with some yeasty looking rash, bilat and groin just reddened..When changing brief, bilat trochanters and sacrum noted to have pressure ulcers - see wound assessment. Bilat heels - pt reported hurt. Small areas noted to heels - no open aspects noted. Dsg to sacrum and trochanters changed and foam placed on them. Foam applied to bilat heels and heels elevated off bed. Abd dsg applied to sacral wound. Pics taken of all wounds. Tele delayed in being placed due to CHG bath. Area around suprapubic cath slightly reddened - but no drainage or areas of breakdown noted. Is difficult to assess as pt is contracted and when staff attempted to straighten legs at all, legs would spasm back into position. Nozin applied per protocol. Will continue to monitor pt status.
[2021-03-01 23:00] VITALS: BP 126/77
[2021-03-02] MEDS ORDERED: MIDO5TAB4 PO (02:47)
[2021-03-02] MEDS ORDERED: GUAI600T47 PO (02:47)
[2021-03-02] MEDS ORDERED: HYOS0.1279 PO (02:47)
[2021-03-02] MEDS ORDERED: ACET650S19 PO (02:47)
[2021-03-02] MEDS ORDERED: NYST1POW24 MC (02:47)
[2021-03-02] MEDS ORDERED: ZINC100T PO (02:47)
[2021-03-02 03:33] VITALS: BP 110/72
--- NOTE | 2021-03-02 03:54 | NUR ---
Upon charting pt sepsis screening, pt discovered to have positive screening. Sepsis RN paged at [phone]. When no reply received - sepsis RN page again at [phone]. At [phone] - this RN called ICU to find out who sepsis RN was. Luna carried the sepsis pager. Luna explained had pt emergency which is why unable to return call. This RN informed Luna of positive sepsis screen per protocol. Will continue to monitor pt status.
[2021-03-02 07:00] VITALS: BP 119/64
[2021-03-02] MEDS ORDERED: BUDESONIDE 0.5 MG/2 ML NEBU. NEB ONE (09:00)
--- NOTE | 2021-03-02 09:42 | HP ---
ADMIT DATE: 03/02/2021 HISTORY OF PRESENT ILLNESS: The patient is a 45-year-old female patient, resident at [facility] in [place] who apparently was transferred to [facility] Emergency Room as she was noted to be febrile with a temperature of 103, hypoxic as well as more confused. She was started on 2 liters of oxygen and her oxygen improved to 91%. She was basically brought to the emergency room, was found to be hypoxic and tachycardic. Her heart rate was up to 130, although over the time she arrived here, her temperature was down to 98 Fahrenheit. The patient was extensively investigated and has lab work. Chest x-ray and her urine and blood were sent for culture and sensitivity and she was started empirically on IV antibiotics in the form of Zosyn and Zyvox. Her chest x-ray showed that she might have right lower lobe infiltrate and UA was consistent with urinary tract infection. She also received 2 liters of normal saline. PAST MEDICAL HISTORY: Significant for advanced multiple sclerosis with functional quadriplegia and fixed flexion contraction of all four limbs. She is known to have factor V Leiden mutation, for which she is on Xarelto. She herself has never had any DVT or pulmonary emboli; however, her father and daughter are positive for factor V Leiden and do have deep vein thrombosis, chronic obstructive pulmonary disease as she was an ex-smoker, although she quit smoking recently. She has severe protein-calorie malnutrition and neurogenic bladder, requiring suprapubic catheter. She also has recurrent urinary tract infection, stage IV sacrococcygeal decubitus ulcer, bilateral trochanteric decubitus ulcer. She has also staghorn calculi, for which she underwent surgical treatment and stones also in her urinary bladder that were removed at [facility]. She had a Port-A-Cath placed successfully; however, it was complicated by pneumothorax, required chest tube placement. Eventually, her Port-A-Cath was removed. PAST MEDICAL HISTORY: Significant for debridement of her coccyx as well Port-A-Cath placement, suprapubic catheter placement, chest tube placement as well as multiple surgeries including cystoscopy and retrograde ureteroscopy and stent deployment, percutaneous nephrostomy and retrieval of her stones in the urinary bladder. ALLERGIES: She has no known drug allergies. FAMILY HISTORY: Positive for factor V Leiden in her father and daughter. SOCIAL HISTORY: She is currently a resident at [facility] in [place]. She does not smoke anymore, does not drink alcohol or use any recreational drugs. She has a son and a daughter. MEDICATIONS: Currently on the following medications: She is on loratadine 10 mg once a day, hyoscyamine 0.125 mg every 4 hours as needed for bladder spasm, midodrine 7.5 mg 3 times a day, dantrolene 75 mg 4 times a day, baclofen 20 mg 4 times a day, ferrous sulfate 325 mg once a day, apixaban 5 mg twice a day, oxycodone extended release 20 mg twice a day, oxycodone/APAP 5/325 one tablet every 4 hours as needed. She is on Tylenol 650 mg every 4 hours, duloxetine 30 mg daily, alprazolam 0.5 mg at bedtime, potassium chloride 20 mEq once a day, zinc gluconate 220 mg once a day, Mucinex 600 mg twice a day, lactobacillus acidophilus 1 capsule twice a day, polyethylene glycol 17 grams daily, senna 1 tablet daily, famotidine 20 mg twice a day, mupirocin ointment apply topically every 12 hours, nystatin powder apply topically 2 times a day. She is also on Santyl ointment, apply topically daily on her wounds, oxybutynin chloride 5 mg 3 times a day, Myrbetriq 50 mg daily, vitamin C, ascorbic acid 500 mg once a day, cholecalciferol 1250 mcg of vitamin D daily, multivitamin one tablet once a day, melatonin 3 mg at bedtime. REVIEW OF SYSTEMS: As per history of present illness. PHYSICAL EXAMINATION: GENERAL: When I examined her, the patient was resting slightly, propped up in bed, in no apparent respiratory distress. She was pale. No jaundice, cyanosis or thyromegaly. No jugular venous distention. No lower limb edema. VITAL SIGNS: Her heart rate on arrival to the Emergency Room was 130, blood pressure is 118/68, temperature was 98.1, respiratory rate was 12 and oxygen saturation was 91% on room air. HEENT: Showed normocephalic, atraumatic. NECK: Supple. HEART: Normal first and second heart sounds. No gallop, rub or murmur. CHEST: Central trachea, equal bilateral chest expansion, air entry. There is no crepitation or rhonchi. ABDOMEN: Scaphoid, soft with suprapubic catheter in place. There is no guarding or rigidity. No organomegaly. All hernial orifices intact. Bowel sounds normal. NEUROLOGIC: She was somewhat confused, but arousable. All cranial nerves intact. She has marked muscle wasting and fixed flexion contraction of all four limbs. She has quadriplegia. GENITOURINARY: She has a suprapubic catheter in place. SKIN: She has multiple wounds in the sacral and bilateral trochanteric decubitus ulcers. LABORATORY WORK: On arrival showed a white cell count of 12,200, hemoglobin 11.6, hematocrit 36, MCV 74 and platelet count 447,000. Her chemistry showed a serum sodium 140, potassium 4.7, chloride 102, bicarbonate 25, anion gap of 13, BUN of 10, creatinine was 0.4. Estimated GFR was 171 mL per minute. Her glucose was 115, calcium was 9.9. Total bilirubin, AST, ALT, alkaline phosphatase were normal. Total protein 6.9, albumin was 2.8. Her prothrombin time was 17.8, INR of 1.5. Urinalysis showed the urine was yellow, cloudy with a pH of 8.5, specific gravity 1.015, small amount of protein. The urine was negative for glucose, ketones, blood and bilirubin was positive for nitrite. There is large amount of leukocyte esterase. Occasional rbc's, more than 40 wbc's per high power field. There is growth of many bacteria. ASSESSMENT AND PLAN: In summary, this is a 45-year-old female patient with advanced multiple sclerosis with functional quadriplegia and fixed flexion contraction of all four limbs, who was admitted with altered mental status and was found to have urinary tract infection, possible also aspiration pneumonia. She was started on IV Zosyn as well as IV Lasix, IV Zyvox. She has received 2 liters of normal saline. We will continue with current plan of management and once we have the urine culture and sensitivity, we will adjust her antibiotics accordingly. FLOWER CURTIS: Clari TID: [id number]
--- NOTE | 2021-03-02 10:04 | CONS ---
DATE OF CONSULTATION: 03/02/2021 I was asked to see this 45-year-old lady for pneumonia. HISTORY OF PRESENT ILLNESS: She has advanced MS. She is an ex-smoker. She has COPD. She is a [facility] resident, was brought to the Emergency Room via EMS for altered mental status. She is alert now. She answers my questions. She denies shortness of breath. Has had cough. She has back pain. She has been tachycardic. PAST MEDICAL HISTORY: 1. Advanced multiple sclerosis. 2. COPD. 3. UTI. 4. Wound on coccyx. 5. Suprapubic catheter. ALLERGIES: No known drug allergies. MEDICATIONS: Zosyn and linezolid. SOCIAL HISTORY: She is an ex-smoker. FAMILY HISTORY: Hypertension. REVIEW OF SYSTEMS: As mentioned above. She is bedridden. Other review of systems otherwise negative. PHYSICAL EXAMINATION: GENERAL: This is a chronically ill-appearing lady. VITAL SIGNS: Her O2 saturation on room air is 97%, respiratory rate 20, heart rate 115, blood pressure 119/64, temperature 98.4. HEENT: Normocephalic, atraumatic. Pupils equal, round, reactive to light. Throat is clear. Nose is clear. NECK: There is no lymphadenopathy or thyromegaly. CARDIOVASCULAR: Tachycardic. CHEST: Inspection is normal. LUNGS: Bibasilar crackles. Few end-expiratory wheezing. ABDOMEN: Soft. Bowel sounds are good. There is a suprapubic catheter. EXTREMITIES: There is contraction. No edema. NEUROLOGIC: Alert. LABORATORY DATA: I reviewed the following laboratory data. Chest x-ray shows increased interstitial marking, elevation of right hemidiaphragm with right lower lobe infiltrate/atelectasis. WBC 12.2, hemoglobin 11.6, platelets are 447, BUN 140, creatinine 4.7, chloride 102, CO2 25, BUN 10, creatinine 0.4. Troponin less than 0.017. Lactic acid 0.9. INR 1.5. ASSESSMENT: 1. Abnormal chest x-ray. 2. Acute exacerbation of chronic obstructive pulmonary disease. 3. Acute bronchitis versus pneumonia. 4. Advanced multiple sclerosis. 5. Urinary tract infection. 6. Bedridden. 7. History of Methicillin-resistant Staphylococcus aureus colonization. PLAN: 1. Titrate FIO2 to keep O2 saturation 92%. 2. Start bronchodilators. 3. Start inhaled corticosteroids. 4. Continue antibiotics. 5. Aspiration precaution. 6. Follow up blood cultures. 7. The findings and recommendations were discussed with Dr. Frankel. Thank you very much for allowing me to participate in the care of this very nice lady. CADENCE DR: Sony TID: [id number]
[2021-03-02 11:00] VITALS: BP 127/62
[2021-03-02] MEDS: IPRATROPIUM BROMIDE 0.5 MG/2.5 ML NEBU. NEB SCH ×3 (11:52→20:21)
[2021-03-02] MEDS: LACTOBACILLUS RHAMNOSUS GG 1 CAPSULE. PO SCH ×2 (12:23→21:25)
--- NOTE | 2021-03-02 12:33 | PDOC ---
Infectious Disease Note Vital Sign Vital Signs Vital Signs Date Time Temp Pulse Resp B/P (MAP) Pulse Ox O2 Delivery O2 Flow Rate FiO2 03/02/21 11:55 96 Room Air 03/02/21 11:00 97.8 109 20 127/62 (83) 97.8 Labs Lab Laboratory Tests Test 03/01/21 14:18 03/01/21 15:17 White Blood Count 12.2 x10^3/uL (4.0-11.0) Red Blood Count 4.85 x10^6/uL (3.50-5.40) Hemoglobin 11.6 g/dL (12.0-15.5) Hematocrit 36.0 % (36.0-47.0) Mean Corpuscular Volume 74 fL (79-100) Mean Corpuscular Hemoglobin 24 pg (25-35) Mean Corpuscular Hemoglobin Concent 32 g/dL (31-37) Red Cell Distribution Width 16.5 % (11.5-14.5) Platelet Count 447 x10^3/uL (140-400) Neutrophils (%) (Auto) 89 % (31-73) Lymphocytes (%) (Auto) 5 % (24-48) Monocytes (%) (Auto) 5 % (0-9) Eosinophils (%) (Auto) 0 % (0-3) Basophils (%) (Auto) 1 % (0-3) Neutrophils # (Auto) 10.8 x10^3/uL (1.8-7.7) Lymphocytes # (Auto) 0.7 x10^3/uL (1.0-4.8) Monocytes # (Auto) 0.6 x10^3/uL (0.0-1.1) Eosinophils # (Auto) 0.0 x10^3/uL (0.0-0.7) Basophils # (Auto) 0.1 x10^3/uL (0.0-0.2) Segmented Neutrophils % 86 % (35-66) Lymphocytes % 7 % (24-48) Monocytes % 6 % (0-10) Basophils % 1 % (0-3) Platelet Estimate Increased (ADEQUATE) Large Platelets Occ Giant Platelets Occ Hypochromasia Slight Poikilocytosis Slight Anisocytosis Slight Microcytosis Slight Stomatocytes Few Prothrombin Time 17.8 SEC (11.7-14.0) Prothromb Time International Ratio 1.5 (0.8-1.1) Sodium Level 140 mmol/L (136-145) Potassium Level 4.7 mmol/L (3.5-5.1) Chloride Level 102 mmol/L (98-107) Carbon Dioxide Level 25 mmol/L (21-32) Anion Gap 13 (6-14) Blood Urea Nitrogen 10 mg/dL (7-20) Creatinine 0.4 mg/dL (0.6-1.0) Estimated GFR (Cockcroft-Gault) 171.1 BUN/Creatinine Ratio 25 (6-20) Glucose Level 112 mg/dL (70-99) Lactic Acid Level 0.9 mmol/L (0.4-2.0) Calcium Level 9.0 mg/dL (8.5-10.1) Total Bilirubin 0.4 mg/dL (0.2-1.0) Aspartate Amino Transf (AST/SGOT) 14 U/L (15-37) Alanine Aminotransferase (ALT/SGPT) 10 U/L (14-59) Alkaline Phosphatase 70 U/L (46-116) Troponin I Quantitative < 0.017 ng/mL (0.000-0.055) Total Protein 6.9 g/dL (6.4-8.2) Albumin 2.8 g/dL (3.4-5.0) Albumin/Globulin Ratio 0.7 (1.0-1.7) Lipase 153 U/L (73-393) Urine Collection Type U cath Urine Color Yellow Urine Clarity Cloudy Urine pH 8.5 (<5.0-8.0) Urine Specific [place] 1.015 (1.000-1.030) Urine Protein 30 mg/dL (NEG-TRACE) Urine Glucose (UA) Negative mg/dL (NEG) Urine Ketones (Stick) Negative mg/dL (NEG) Urine Blood Negative (NEG) Urine Nitrite Positive (NEG) Urine Bilirubin Negative (NEG) Urine Urobilinogen Dipstick 1.0 mg/dL (0.2 mg/dL) Urine Leukocyte Esterase Large (NEG) Urine RBC Occ /HPF (0-2) Urine WBC >40 /HPF (0-4) Urine Squamous Epithelial Cells Many /LPF Urine Amorphous Sediment Present /HPF Urine Bacteria Many /HPF (0-FEW) Urine Mucus Marked /LPF Objective Assessment HCAP Leukocytosis Multiple pressure wounds involving sacrum, left buttocks, bilat trochanters 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 The chart was reviewed. The case was discussed. Agree with the plan of care. AMY REESE APRN Mar 02, 2021 12:33 GARRY HUNTER MD Mar 02, 2021 15:49
--- NOTE | 2021-03-02 13:03 | CONS ---
DATE OF CONSULTATION: 03/02/2021 REFERRING PHYSICIAN: Dr. Frankel. REASON FOR CONSULTATION: Pneumonia and history of MRSA. HISTORY OF PRESENT ILLNESS: This patient is a 45-year-old female, a [facility] resident with advanced multiple sclerosis, functional quadriplegia and contractures. She was sent to the ER with a fever of 103, hypoxia and confusion. A chest x-ray showed a right lower lobe infiltrate and urinalysis was suggestive for infection. She was treated with supplemental oxygen, Zyvox and one-time dose of Zosyn. Today, the patient says she is feeling a little bit better. She is now off her oxygen. She complains of some shortness of air and cough. She had some chills and body aches that have settled down. She denies headache, sinus congestion or sore throat. Denies nausea, vomiting or diarrhea. She has a suprapubic catheter, uncertain of when it was last changed. She is total assist with her ADLs, transfers and repositioning. PAST MEDICAL HISTORY: History of MRSA, VRE, multiple drug resistant infections including ESBL producing Klebsiella bacteremia and UTI as well as pseudomonas, history of Clostridium difficile colitis in 2019, COPD, anorexia/bulimia, depression, anxiety, stage 4 sacrococcygeal pressure wounds, factor V Elmer mutation, history of DVT/PE. PAST SURGICAL HISTORY: Multiple debridements of sacrococcygeal wounds, suprapubic catheter placement. FAMILY HISTORY: Positive for factor V deficiency. SOCIAL HISTORY: shelter resident. She is a former smoker. ALLERGIES: No known drug allergies. MEDICATIONS: Linezolid, one-time dose of Zosyn, probiotics, Atrovent, Pulmicort. REVIEW OF SYSTEMS: Per HPI, otherwise all other review of systems are negative history. PHYSICAL EXAMINATION: VITAL SIGNS: Temperature 97.8, T-max of 103 reportedly, blood pressure 127/62, heart rate 109, respiratory rate 20, pulse oximetry 98% on room air. GENERAL: The patient is in bed, position, alert, no distress. HEENT: Pupils equally round, reactive. Normal conjunctivae. Oropharynx clear. LUNGS: Diminished aeration. No accessory muscle use. HEART: Normal S1 and S2. ABDOMEN: Not distended, soft, nontender with bowel sounds present. SPT in place. EXTREMITIES: No gross edema or cyanosis. Contractures of all four extremities. SKIN: Warm to touch. No signs of rash. She has multiple pressure wounds involving buttocks, sacrum and trochanters. Refer to wound care notes for further descriptions (pictures reviewed). No signs of infection. NEUROLOGIC: Alert, answering questions appropriately, quadriplegia. LABORATORY DATA: WBC 12.2, hemoglobin 4.85, platelets 447. Sodium 140, potassium 4.7, creatinine 0.4, BUN 10, glucose 112. Lactic acid 0.9, total bilirubin 0.4, AST 14, ALT 10. Troponin less than 0.017, albumin 2.8. Urinalysis positive for 4 wbc's, leukocyte esterase, nitrite, bacteria as well as many squamous epithelial cells. Blood and urine cultures pending. Chest x-ray showed elevation of the right hemidiaphragm with suspected right lower lobe atelectasis or infiltrate and small right pleural effusion. IMPRESSION: 1. Healthcare-acquired pneumonia. 2. Leukocytosis. 3. Multiple pressure wounds involving sacrum, left buttocks and bilateral trochanters. 4. 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. 5. History of methicillin-resistant staphylococcus aureus, extended spectrum beta-lactamase, vancomycin-resistant enterococci pseudomonas and Clostridium difficile. PLAN: 1. The patient's SPT will need to be changed if not already done. 2. Recommend meropenem with history of multidrug resistant organisms. 3 continue the Zyvox. 4. Add oral vancomycin twice a day for prophylaxis. 5. Follow up cultures. 6. Monitor WBC trend and temperature. 7. Maintain aspiration precautions. 8. Wound care team has been consulted. 9. Offloading. 10. Discussed with nursing. Thank you, Dr. Frankel for asking us to participate in this patient's care. Should you have further questions or concerns, please call. [facility] – [place] DR: Rebecca TID: [id number]
[2021-03-02] MEDS: VANCOMYCIN 125 MG/2.5 ML ORAL SOLUTION. PO SCH ×3 (13:46→21:28)
[2021-03-02] MEDS: MEROPENEM 1 GM in IV NORMAL SALINE 100ML 100 ML IV SCH ×2 (13:51→23:09)
[2021-03-02] MEDS ORDERED: oxyCODONE/APAP 5/325 1 TAB TABLET PO PRN (14:30)
[2021-03-02] MEDS: SULFACETAMIDE 10% OPHTH SOLUTION 15ML BOTTLE. OU SCH ×3 (14:30→23:09)
[2021-03-02] MEDS ORDERED: POLYETHYLENE GLYCOL 3350 17 GM PACKET. PO PRN (14:30)
[2021-03-02] MEDS ORDERED: ACETAMINOPHEN 650 MG/20.3 ML SOLUTION. PO PRN (14:30)
[2021-03-02] MEDS ORDERED: MUPIROCIN 2 % NASAL OINTMENT 22GM TUBE. TP SCH (14:30)
[2021-03-02 15:00] VITALS: BP 122/60
[2021-03-02] MEDS ORDERED: HYOSCYAMINE 0.125 MG TAB.RAPDIS PO PRN (15:30)
[2021-03-02] MEDS: MIDODRINE 5 MG TABLET PO SCH (16:36)
[2021-03-02] MEDS ORDERED: DANTROLENE SODIUM 25 MG CAPSULE PO SCH (17:00)
[2021-03-02] MEDS: BACLOFEN 10 MG TABLET. PO SCH ×2 (17:29→21:25)
[2021-03-02 19:00] VITALS: BP 119/62
[2021-03-02] MEDS: BUDESONIDE 0.5 MG/2 ML NEBU. NEB SCH (20:21)
[2021-03-02] MEDS ORDERED: NON FORMULARY ITEM (Lactobacillus Acidophilus (Acidophilus) 1 CAP) PO SCH (21:00)
[2021-03-02] MEDS ORDERED: NON FORMULARY ITEM (Melatonin 1 TAB) PO SCH (21:00)
[2021-03-02] MEDS: APIXABAN 5 MG TABLET. PO SCH (21:24)
[2021-03-02] MEDS: OXYBUTYNIN CHLORIDE 5 MG TABLET PO SCH (21:25)
[2021-03-02] MEDS: ALPRAZolam 0.5 MG TABLET PO SCH (21:25)
[2021-03-02] MEDS: FAMOTIDINE 20 MG TABLET. PO SCH (21:25)
[2021-03-02] MEDS: ERYTHROMYCIN 0.5% OPHTH OINTMENT 1GM TUBE. OU SCH (21:28)
[2021-03-02] MEDS: NYSTATIN TOPICAL POWDER 15GM BOTTLE. TP SCH (21:32)
[2021-03-02] MEDS: oxyCODONE ER 10 MG TAB.ER.12H PO SCH (21:32)
[2021-03-02 23:09] VITALS: BP 123/70
[2021-03-03] VITALS (23 sets, daily range): BP systolic 73–137; BP diastolic 47–78
[2021-03-03] MEDS: SULFACETAMIDE 10% OPHTH SOLUTION 15ML BOTTLE. OU SCH ×6 (02:30→22:34)
--- NOTE | 2021-03-03 04:57 | EKG ---
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
[2021-03-03 05:02] LABS: HEMOGLOBIN 9.8 g/dL (12.0-15.5); RED BLOOD COUNT 4.01 x10^6/uL (3.50-5.40); RED CELL DISTRIBUTION WIDTH 16.3 % (11.5-14.5); WHITE BLOOD COUNT 5.4 x10^3/uL (4.0-11.0)
[2021-03-03 05:39] LABS: ALBUMIN 2.3 g/dL (3.4-5.0); ALBUMIN/GLOBULIN RATIO 0.6 (1.0-1.7); CALCIUM 8.5 mg/dL (8.5-10.1); CREATININE 0.3 mg/dL (0.6-1.0); GFR 238.5; TOTAL BILIRUBIN 0.3 mg/dL (0.2-1.0); TOTAL PROTEIN 6.3 g/dL (6.4-8.2)
--- NOTE | 2021-03-03 05:44 | NUR ---
TRANSFER NOTE: Patient transferred by bed to room 108. 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 Report given to VERENA Mcintosh. Patient requested that her daughter Mehnaz be called. Will attempt to call now. Addendum: 03/03/21 at 0548 by HEBERT ALVAREZ RN Spoke with patient's daughter Mehnaz and updated her on patient status.
[2021-03-03] MEDS ORDERED: IV NORMAL SALINE 500ML BAG 250 ML IV ONE (06:00)
[2021-03-03] MEDS ORDERED: ADENOSINE 6 MG/2 ML VIAL. IV ONE (06:00)
[2021-03-03 06:12] LABS: POTASSIUM 2.6 mmol/L (3.5-5.1)
[2021-03-03] MEDS: MEROPENEM 1 GM in IV NORMAL SALINE 100ML 100 ML IV SCH ×3 (06:17→22:33)
--- NOTE | 2021-03-03 06:45 | NUR ---
IP: Pt is mrsa screen + and has a recent hx of ESBL in urine requiring pt to be in contact precautions.
[2021-03-03] MEDS: MIDODRINE 5 MG TABLET PO SCH ×3 (07:00→18:00)
--- NOTE | 2021-03-03 07:22 | NUR ---
Rapid response called on patient at 0442 by patient's RN. This nurse responded. HR 180s with BP 95/70. Attempted to contact Dr. Frankel but he did not answer. Dr. Sharma notified at 0505. New orders received. Patient moved to ICU room 108 at 0520. Adenosine 6mg IV x 1 given per order. Patient HR at 0615 120s. BP stable. No c/o pain or discomfort at this time. Will monitor.
--- NOTE | 2021-03-03 07:31 | PDOC ---
Infectious Disease Note Subjective: Subjective Patient says feels better Pain is under control Vital Signs: Vital Signs Vital Signs Date Time Temp Pulse Resp B/P (MAP) Pulse Ox O2 Delivery O2 Flow Rate FiO2 03/03/21 06:15 138 18 86/66 (73) 94 Room Air 03/03/21 03:29 97.7 97.7 Physical Exam: PHYSICAL EXAM GENERAL: The patient is in bed, position, alert, no distress. HEENT: Pupils equally round, reactive. Normal conjunctivae. Oropharynx clear. LUNGS: Diminished aeration. No accessory muscle use. HEART: Normal S1 and S2. ABDOMEN: Not distended, soft, nontender with bowel sounds present. SPT in place. EXTREMITIES: No gross edema or cyanosis. Contractures of all four extremities. SKIN: Warm to touch. No signs of rash. She has multiple pressure wounds involving buttocks, sacrum and trochanters. Refer to wound care notes for further descriptions (pictures reviewed). No signs of infection. NEUROLOGIC: Alert, answering questions appropriately, quadriplegia. Medications: Inpatient Meds: Medications reviewed. Labs: Lab Laboratory Tests Test 03/03/21 03:30 White Blood Count 5.4 x10^3/uL (4.0-11.0) Red Blood Count 4.01 x10^6/uL (3.50-5.40) Hemoglobin 9.8 g/dL (12.0-15.5) Hematocrit 30.0 % (36.0-47.0) Mean Corpuscular Volume 75 fL (79-100) Mean Corpuscular Hemoglobin 24 pg (25-35) Mean Corpuscular Hemoglobin Concent 33 g/dL (31-37) Red Cell Distribution Width 16.3 % (11.5-14.5) Platelet Count 314 x10^3/uL (140-400) Sodium Level 144 mmol/L (136-145) Potassium Level 2.6 mmol/L (3.5-5.1) Chloride Level 107 mmol/L (98-107) Carbon Dioxide Level 25 mmol/L (21-32) Anion Gap 12 (6-14) Blood Urea Nitrogen 5 mg/dL (7-20) Creatinine 0.3 mg/dL (0.6-1.0) Estimated GFR (Cockcroft-Gault) 238.5 BUN/Creatinine Ratio 17 (6-20) Glucose Level 64 mg/dL (70-99) Calcium Level 8.5 mg/dL (8.5-10.1) Total Bilirubin 0.3 mg/dL (0.2-1.0) Aspartate Amino Transf (AST/SGOT) 12 U/L (15-37) Alanine Aminotransferase (ALT/SGPT) 10 U/L (14-59) Alkaline Phosphatase 52 U/L (46-116) Total Protein 6.3 g/dL (6.4-8.2) Albumin 2.3 g/dL (3.4-5.0) Albumin/Globulin Ratio 0.6 (1.0-1.7) Objective: Assessment: 1. Healthcare-acquired pneumonia. 2. Leukocytosis. 3. Multiple pressure wounds involving sacrum, left buttocks and bilateral trochanters. 4. 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. 5. History of methicillin-resistant staphylococcus aureus, extended spectrum beta-lactamase, vancomycin-resistant enterococci pseudomonas and Clostridium difficile. . Plan: Plan of Care Cont meropenem /Zyvox po vanc BID prophylaxis Probiotics f/u cultures Monitor labs and cult Maintain aspiration precautions Wound care team consulted Offloading Discussed with nursing NAIN THOMAS MD Mar 03, 2021 07:31
[2021-03-03] MEDS: BUDESONIDE 0.5 MG/2 ML NEBU. NEB SCH ×2 (07:58→20:00)
--- NOTE | 2021-03-03 08:05 | PN ---
DATE: 03/03/2021 SUBJECTIVE: The patient was transferred from the sixth floor to ICU as she developed an episode of supraventricular tachycardia with the heart rate went up to 180 for which she received one dose of adenosine and her heart rate responded well and came down to 118. When I saw her this morning, the patient herself denied any chest pain, shortness of breath. PHYSICAL EXAMINATION: GENERAL: When I examined her, she was extremely pale, cachectic, but no jaundice, cyanosis or thyromegaly. No jugular venous distention. No limb edema. VITAL SIGNS: Her heart rate was 118, blood pressure was 92/60, temperature was 97.7, respiratory rate was 18 and oxygen saturation was 94% on room air. HEAD, EYES, EARS, NOSE AND THROAT: Normocephalic, atraumatic. NECK: Supple. HEART: Normal first and second heart sounds, no gallop, murmur. CHEST: Shows central trachea, equally reduced expansion, reduced air entry, vesicular sounds. I could not appreciate any crepitation or rhonchi anteriorly. ABDOMEN: Scaphoid, soft with suprapubic catheter in place. No tenderness. No guarding or rigidity. No organomegaly. All hernial orifice intact. Bowel sounds normal. NEUROLOGIC: She is awake, alert, responding appropriately. All cranial nerves intact; however, she has functional quadriplegia with fixed flexion contraction of all four limbs. She has multiple decubitus ulcers including sacral and bilateral trochanteric decubitus ulcers. Her intake over the last 24 hours was incompletely recorded. LABORATORY DATA: Showed a white cell count 5400, hemoglobin 10, hematocrit 30, MCV 75 and platelet count 314. Her serum sodium was 144, potassium 2.6, chloride 107, bicarbonate 25, anion gap of 12, BUN 5, creatinine 0.3. Estimated GFR was 238 mL per minute. Her glucose was 64, calcium was 8.5. Total bilirubin, AST, ALT, alkaline phosphatase were normal. Total protein 6.3, albumin was 2.3. Her blood cultures are still pending, showed no growth after one day. ASSESSMENT: This is a 45-year-old female patient, resident at [facility] in [place], who was yet again admitted with sepsis. [facility] [address] [address] [facility] and she was evaluated in the emergency room and was found to have urinary tract infection, possible lung infiltrate. We did send blood and urine for culture and sensitivity, was started originally on Zosyn and Zyvox; however, she was seen by the Infectious Disease and changed her to meropenem given history of multidrug resistant organism and vancomycin was added for prophylaxis as well as probiotic. She apparently developed an episode of supraventricular tachycardia last night and was transferred to the ICU where she received one dose of adenosine. Other medical problems include: 1. Longstanding progressive multiple sclerosis with functional quadriplegia and neurogenic bladder, requiring suprapubic catheter. 2. Chronic obstructive pulmonary disease. 3. Factor V Leiden for which she is on Eliquis. 4. Multiple decubitus ulcers including stage 4 sacral decubitus ulcer and bilateral trochanteric decubitus ulcer. 5. Chronic sacral osteomyelitis. 6. Neurogenic bladder, requiring suprapubic catheter. 7. Severe protein-calorie malnutrition. PLAN: To continue with antibiotic in the form of meropenem as well as linezolid and oral vancomycin for C. diff prophylaxis. Continue with sulfacetamide and erythromycin for her conjunctivitis. Continue with all other medication. Await obviously the result of the urine and blood culture to adjust her antibiotic. She had this recurrent episode of supraventricular tachycardia and I believe has also history of atrial fibrillation, left ventricular response. I will consult the rn intern. We will replenish her potassium. As for some reason, her potassium has dramatically dropped from 4.70 to 2.6 for no obvious reasons. JUJU/MARIAJOSE DR: Clari TID: [id number]
[2021-03-03] MEDS: BACLOFEN 10 MG TABLET. PO SCH ×4 (08:13→21:20)
[2021-03-03] MEDS: ZINC SULFATE 220 MG CAPSULE. PO SCH (08:14)
[2021-03-03] MEDS: FERROUS SULFATE 325 MG TABLET. PO SCH (08:14)
[2021-03-03] MEDS: POTASSIUM CHLORIDE 20 MEQ TABLET.ER. PO SCH ×3 (08:14→11:54)
[2021-03-03] MEDS: LACTOBACILLUS RHAMNOSUS GG 1 CAPSULE. PO SCH ×2 (08:15→21:20)
[2021-03-03] MEDS: OXYBUTYNIN CHLORIDE 5 MG TABLET PO SCH ×3 (08:15→21:20)
[2021-03-03] MEDS: CETIRIZINE HCL 10 MG TABLET. PO SCH (08:15)
[2021-03-03] MEDS: PRENATAL MULTIVITAMIN TABLET. PO SCH (08:15)
[2021-03-03] MEDS: APIXABAN 5 MG TABLET. PO SCH ×2 (08:16→21:21)
[2021-03-03] MEDS: oxyCODONE ER 10 MG TAB.ER.12H PO SCH ×2 (08:16→21:20)
[2021-03-03] MEDS: FAMOTIDINE 20 MG TABLET. PO SCH ×2 (08:16→21:20)
[2021-03-03] MEDS: CHOLECALCIFEROL (VITAMIN D3) 1,000 UNIT TABLET PO SCH (08:33)
[2021-03-03] MEDS: MIRABEGRON 25 MG TAB.ER.24H PO SCH (08:33)
[2021-03-03] MEDS: SENNOSIDES 8.6 MG TABLET PO SCH (08:33)
[2021-03-03] MEDS: ASCORBIC ACID 500 MG TABLET PO SCH (08:33)
[2021-03-03] MEDS ORDERED: NON FORMULARY ITEM (Fluconazole (Diflucan) 1 TAB) PO SCH (09:00)
[2021-03-03] MEDS ORDERED: COLLAGENASE CLOSTRIDIUM HIST TP SCH (09:00)
[2021-03-03] MEDS: DULoxetine HCL 30 MG CAPSULE.DR PO SCH (09:00)
[2021-03-03] MEDS: VANCOMYCIN 125 MG/2.5 ML ORAL SOLUTION. PO SCH ×4 (09:00→21:22)
[2021-03-03] MEDS: NYSTATIN TOPICAL POWDER 15GM BOTTLE. TP SCH ×3 (09:00→21:22)
--- NOTE | 2021-03-03 09:26 | PDOC ---
PULMONARY PROGRESS NOTES DATE: 03/03/21 TIME: 09:22 Subjective pt. remains on room air Rapid response fro SVT PT. remains very weak no other issues per nursing Vitals Vital Signs Date Time Temp Pulse Resp B/P (MAP) Pulse Ox O2 Delivery O2 Flow Rate FiO2 03/03/21 08:16 94 Room Air 03/03/21 06:15 138 18 86/66 (73) 03/03/21 03:29 97.7 97.7 ROS: No Nausea, No Chest Pain, No Abdominal Pain, No Increase Cough General: Alert, Oriented X4 Lungs: Clear Cardiovascular: S1, S2 Abdomen: Soft, Non-tender Extremities: No Edema Labs Laboratory Tests Test 03/01/21 14:18 03/01/21 15:17 03/01/21 20:30 03/03/21 03:30 White Blood Count 12.2 x10^3/uL (4.0-11.0) 5.4 x10^3/uL (4.0-11.0) Red Blood Count 4.85 x10^6/uL (3.50-5.40) 4.01 x10^6/uL (3.50-5.40) Hemoglobin 11.6 g/dL (12.0-15.5) 9.8 g/dL (12.0-15.5) Hematocrit 36.0 % (36.0-47.0) 30.0 % (36.0-47.0) Mean Corpuscular Volume 74 fL (79-100) 75 fL (79-100) Mean Corpuscular Hemoglobin 24 pg (25-35) 24 pg (25-35) Mean Corpuscular Hemoglobin Concent 32 g/dL (31-37) 33 g/dL (31-37) Red Cell Distribution Width 16.5 % (11.5-14.5) 16.3 % (11.5-14.5) Platelet Count 447 x10^3/uL (140-400) 314 x10^3/uL (140-400) Neutrophils (%) (Auto) 89 % (31-73) Lymphocytes (%) (Auto) 5 % (24-48) Monocytes (%) (Auto) 5 % (0-9) Eosinophils (%) (Auto) 0 % (0-3) Basophils (%) (Auto) 1 % (0-3) Neutrophils # (Auto) 10.8 x10^3/uL (1.8-7.7) Lymphocytes # (Auto) 0.7 x10^3/uL (1.0-4.8) Monocytes # (Auto) 0.6 x10^3/uL (0.0-1.1) Eosinophils # (Auto) 0.0 x10^3/uL (0.0-0.7) Basophils # (Auto) 0.1 x10^3/uL (0.0-0.2) Segmented Neutrophils % 86 % (35-66) Lymphocytes % 7 % (24-48) Monocytes % 6 % (0-10) Basophils % 1 % (0-3) Platelet Estimate Increased (ADEQUATE) Large Platelets Occ Giant Platelets Occ Hypochromasia Slight Poikilocytosis Slight Anisocytosis Slight Microcytosis Slight Stomatocytes Few Prothrombin Time 17.8 SEC (11.7-14.0) Prothromb Time International Ratio 1.5 (0.8-1.1) Sodium Level 140 mmol/L (136-145) 144 mmol/L (136-145) Potassium Level 4.7 mmol/L (3.5-5.1) 2.6 mmol/L (3.5-5.1) Chloride Level 102 mmol/L (98-107) 107 mmol/L (98-107) Carbon Dioxide Level 25 mmol/L (21-32) 25 mmol/L (21-32) Anion Gap 13 (6-14) 12 (6-14) Blood Urea Nitrogen 10 mg/dL (7-20) 5 mg/dL (7-20) Creatinine 0.4 mg/dL (0.6-1.0) 0.3 mg/dL (0.6-1.0) Estimated GFR (Cockcroft-Gault) 171.1 238.5 BUN/Creatinine Ratio 25 (6-20) 17 (6-20) Glucose Level 112 mg/dL (70-99) 64 mg/dL (70-99) Lactic Acid Level 0.9 mmol/L (0.4-2.0) Calcium Level 9.0 mg/dL (8.5-10.1) 8.5 mg/dL (8.5-10.1) Total Bilirubin 0.4 mg/dL (0.2-1.0) 0.3 mg/dL (0.2-1.0) Aspartate Amino Transf (AST/SGOT) 14 U/L (15-37) 12 U/L (15-37) Alanine Aminotransferase (ALT/SGPT) 10 U/L (14-59) 10 U/L (14-59) Alkaline Phosphatase 70 U/L (46-116) 52 U/L (46-116) Troponin I Quantitative < 0.017 ng/mL (0.000-0.055) Total Protein 6.9 g/dL (6.4-8.2) 6.3 g/dL (6.4-8.2) Albumin 2.8 g/dL (3.4-5.0) 2.3 g/dL (3.4-5.0) Albumin/Globulin Ratio 0.7 (1.0-1.7) 0.6 (1.0-1.7) Lipase 153 U/L (73-393) Urine Collection Type U cath Urine Color Yellow Urine Clarity Cloudy Urine pH 8.5 (<5.0-8.0) Urine Specific [place] 1.015 (1.000-1.030) Urine Protein 30 mg/dL (NEG-TRACE) Urine Glucose (UA) Negative mg/dL (NEG) Urine Ketones (Stick) Negative mg/dL (NEG) Urine Blood Negative (NEG) Urine Nitrite Positive (NEG) Urine Bilirubin Negative (NEG) Urine Urobilinogen Dipstick 1.0 mg/dL (0.2 mg/dL) Urine Leukocyte Esterase Large (NEG) Urine RBC Occ /HPF (0-2) Urine WBC >40 /HPF (0-4) Urine Squamous Epithelial Cells Many /LPF Urine Amorphous Sediment Present /HPF Urine Bacteria Many /HPF (0-FEW) Urine Mucus Marked /LPF Nasal Screen MRSA (PCR) Positive (NEGATIVE) Laboratory Tests Test 03/03/21 03:30 White Blood Count 5.4 x10^3/uL (4.0-11.0) Red Blood Count 4.01 x10^6/uL (3.50-5.40) Hemoglobin 9.8 g/dL (12.0-15.5) Hematocrit 30.0 % (36.0-47.0) Mean Corpuscular Volume 75 fL (79-100) Mean Corpuscular Hemoglobin 24 pg (25-35) Mean Corpuscular Hemoglobin Concent 33 g/dL (31-37) Red Cell Distribution Width 16.3 % (11.5-14.5) Platelet Count 314 x10^3/uL (140-400) Sodium Level 144 mmol/L (136-145) Potassium Level 2.6 mmol/L (3.5-5.1) Chloride Level 107 mmol/L (98-107) Carbon Dioxide Level 25 mmol/L (21-32) Anion Gap 12 (6-14) Blood Urea Nitrogen 5 mg/dL (7-20) Creatinine 0.3 mg/dL (0.6-1.0) Estimated GFR (Cockcroft-Gault) 238.5 BUN/Creatinine Ratio 17 (6-20) Glucose Level 64 mg/dL (70-99) Calcium Level 8.5 mg/dL (8.5-10.1) Total Bilirubin 0.3 mg/dL (0.2-1.0) Aspartate Amino Transf (AST/SGOT) 12 U/L (15-37) Alanine Aminotransferase (ALT/SGPT) 10 U/L (14-59) Alkaline Phosphatase 52 U/L (46-116) Total Protein 6.3 g/dL (6.4-8.2) Albumin 2.3 g/dL (3.4-5.0) Albumin/Globulin Ratio 0.6 (1.0-1.7) Medications Active Scripts Medications Dose Route/Sig Max Daily Dose Days Date Category Dose Instructions Nystatin 1 Each Powder.ea. 1 Each MC TID 03/02/21 Reported Midodrine Hcl 5 Mg Tablet 7.5 Mg PO TID 03/02/21 Reported Hold is SBP > 140 Mucinex (Guaifenesin) 600 Mg Tablet.er 600 Mg PO BID 03/02/21 Reported Acetaminophen 650 Mg/20.3 Ml Solution 650 Mg PO Q4HRS PRN 03/02/21 Reported Zinc Gluconate 100 Mg Tablet 220 Mg PO DAILY 03/02/21 Reported Hyoscyamine Sulfate 0.125 Mg Tablet 0.125 Mg PO Q4HRS PRN 03/02/21 Reported Mini Tablet ( Vit #49/Iron Fum/Fa) 1 Each Tablet 1 Each PO DAILY 09/18/20 Reported Diflucan (Fluconazole) 100 Mg Tablet 1 Tab PO DAILY 5 09/18/20 Reported Vitamin C (Ascorbic Acid) 500 Mg Capsule.er 500 Mg PO DAILY 08/20/20 Reported Melatonin 3 Mg Tablet 1 Tab PO QHS 08/18/20 Reported Santyl Ointment (Collagenase) 30 Gm Oint...g. 1 Darion TP DAILY 30 05/16/20 Reported Mupirocin Ointment (Mupirocin) 22 Gm Oint...g. 1 Darion TP PRN Q12HR 05/16/20 Reported Oxycodone HCl ER (Oxycodone HCl) 20 Mg Tab.er.12h 20 Mg PO BID 04/09/20 Reported Vitamin D3 (Cholecalciferol (Vitamin D3)) 1,250 Mcg Capsule 1,000 Mcg PO DAILY 11/30/19 Reported Miralax (Polyethylene Glycol 3350) 17 Gm Powd.pack 1 Pkt PO PRN DAILY PRN 11/30/19 Reported Myrbetriq (Mirabegron) 50 Mg Tab.er.24h 50 Mg PO DAILY 11/30/19 Reported Dantrolene Sodium 25 Mg Capsule 75 Mg PO QID 05/24/19 Reported Acidophilus (Lactobacillus Acidophilus) 1 Each Tab.chew 1 Cap PO BID 05/24/19 Reported Sennosides 8.6 Mg Tablet 8.6 Mg PO DAILY 05/24/19 Reported Percocet 5-325 Mg Tablet (Oxycodone/Acetaminophen) 1 Each Tablet 1 Tab PO PRN Q4HRS PRN 05/24/19 Reported Potassium Chloride (Potassium Chloride) 20 Meq Tablet.er 40 Meq PO DAILY 12/30/18 Reported Oxybutynin Chloride 5 Mg Tablet 5 Mg PO TID 12/30/18 Reported Loratadine 10 Mg Tablet 1 Tab PO DAILY 12/30/18 Reported Ferrous Sulfate 325 Mg Tablet 325 Mg PO DAILY 12/30/18 Reported Famotidine 20 Mg Tablet 20 Mg PO BID 12/30/18 Reported Cymbalta (Duloxetine Hcl) 30 Mg Capsule.dr 30 Mg PO DAILY 12/30/18 Reported Baclofen 20 Mg Tablet 20 Mg PO QID 12/30/18 Reported Eliquis (Apixaban) 5 Mg Tablet 5 Mg PO BID 12/30/18 Reported Alprazolam 0.5 Mg Tablet 1 Tab PO HS 12/30/18 Reported Impression . ASSESSMENT: 1. Abnormal chest x-ray. 2. Acute exacerbation of chronic obstructive pulmonary disease--improved 3. Acute bronchitis versus pneumonia. 4. Advanced multiple sclerosis. 5. Urinary tract infection 6. Bedridden. 7. History of Methicillin-resistant Staphylococcus aureus colonization. Plan . UPDATED 03/03 Pt. respiratory status is compensated, remains on room air NEBS including pulmicort Continue ABX per ID -- follow BC Follow cardiology recs PT/OT IS at bedside ST- aspiration precautions Replace KCL per IM DVT/GI PPX --ricky D/W RN Thank you very much for allowing me to participate in the care of this very nice 03/02 PLAN: 1. Titrate FIO2 to keep O2 saturation 92%. 2. Start bronchodilators. 3. Start inhaled corticosteroids. 4. Continue antibiotics. 5. Aspiration precaution. 6. Follow up blood cultures. 7. The findings and recommendations were discussed with Dr. Frankel. Thank you very much for allowing me to participate in the care of this very nice NARCISA BURTON MD Mar 03, 2021 09:26
--- NOTE | 2021-03-03 10:53 | PDOC2 ---
CARLOS HENSON [employer] 03/03/21 1053: CARDIAC CONSULT DATE OF CONSULT Date of Consult DATE: 03/03/21 TIME: 10:44 REASON FOR CONSULT Reason for Consult: SVT REFERRING PHYSICIAN Referring Physician: Dr. Frankel SOURCE Source: Chart review, Patient HISTORY OF PRESENT ILLNESS HISTORY OF PRESENT ILLNESS This is a 45 yo female who presented from nursing facility secondary to altered mental status and hypoxia. Has a history of progressive MS with functional quadriplegia and neurogenic bladder requiring suprapubic catheter. Has chronic complicated UTI. This morning, was noted in SVT, which prompted this consult. Was given adenosine with improvement in HR. She denies any chest pain, dizziness, diaphoresis, or nausea/vomiting. Reports palpitations this morning when HR was elevated, which has now resolved. Is presently ST with HR 125 range. PAST MEDICAL HISTORY Pulmonary: COPD, Pneumonia CENTRAL NERVOUS SYSTEM: Other (MS) GI: Diverticulosis, GERD Heme/Onc: Anemia NOS, Other (Factor V Leiden ) Psych: Anxiety, Depression Renal/: UTI, Other (neurogenic bladder, requiring suprapubic catheter.) PAST SURGICAL HISTORY Past Surgical History: Other (suprapubic catheter, debridement of her coccyx) FAMILY HISTORY Family History: Other (factor V Leiden) SOCIAL HISTORY Smoke: Quit ALCOHOL: none Drugs: None Lives: [facility] CURRENT MEDICATIONS CURRENT MEDICATIONS Current Medications Medications (Trade) Dose Ordered Sig/Amber Route PRN Reason Start Time Stop Time Status Last Admin Dose Admin Ipratropium Ida (Atrovent) 0.5 mg RTQID NEB 03/02/21 12:00 03/03/21 05:12 DC 03/02/21 20:21 Budesonide (Pulmicort) 0.5 mg RTBID NEB 03/02/21 20:00 03/03/21 07:58 Lactobacillus Rhamnosus (Culturelle) 1 cap BID PO 03/02/21 12:00 03/03/21 08:15 Meropenem 1 gm/ Sodium Chloride 100 ml @ 200 mls/hr Q8HRS IV 03/02/21 14:00 03/03/21 06:17 Vancomycin HCl (Vancomycin Oral Solution) 125 mg [id number] PO 03/02/21 13:00 03/02/21 21:28 Alprazolam (Xanax) 0.5 mg HS PO 03/02/21 21:00 03/02/21 21:25 Apixaban (Eliquis) 5 mg BID PO 03/02/21 21:00 03/03/21 08:16 Famotidine (Pepcid) 20 mg BID PO 03/02/21 21:00 03/03/21 08:16 Ferrous Sulfate (Feosol) 325 mg DAILY PO 03/03/21 09:00 03/03/21 08:14 Guaifenesin (Mucinex) 600 mg BID PO 03/02/21 21:00 03/03/21 08:13 Mirabegron (Myrbetriq) 50 mg DAILY PO 03/03/21 09:00 03/03/21 08:33 Oxybutynin Chloride (Ditropan) 5 mg TID PO 03/02/21 21:00 03/03/21 08:15 Sennosides (Senna) 8.6 mg DAILY PO 03/03/21 09:00 03/03/21 08:33 Ascorbic Acid (Vitamin C) 500 mg DAILY PO 03/03/21 09:00 03/03/21 08:33 Baclofen (Lioresal) 20 mg QID PO 03/02/21 17:00 03/03/21 08:13 Vitamin D (Vitamin D3) 1,000 unit DAILY PO 03/03/21 09:00 03/03/21 08:33 Cetirizine HCl (ZyrTEC) 10 mg DAILY PO 03/03/21 09:00 03/03/21 08:15 Nystatin (Nystop) 1 nani TID TP 03/02/21 21:00 03/03/21 09:00 Oxycodone HCl (OxyCONTIN) 20 mg Q12HR PO 03/02/21 21:00 03/03/21 08:16 Multivit/ Folic Acid/Iron (Multivitamin ) 1 tab DAILY PO 03/03/21 09:00 03/03/21 08:15 Zinc Sulfate (Orazinc) 220 mg DAILY PO 03/03/21 09:00 03/03/21 08:14 Sulfacetamide Sodium (Sulf-10) 2 drop Q4H OU 03/02/21 14:30 03/02/21 23:09 Erythromycin (Romycin) 0.25 inch QHS OU 03/02/21 21:00 03/02/21 21:28 Adenosine (Adenocard) 6 mg 1X ONCE IV 03/03/21 06:00 03/03/21 06:01 DC 03/03/21 05:37 Sodium Chloride 250 ml @ 250 mls/hr 1X ONCE IV 03/03/21 06:00 03/03/21 06:59 DC 03/03/21 05:37 Potassium Chloride (Klor-Con) 40 meq Q2H PO 03/03/21 08:00 03/03/21 10:01 DC 03/03/21 08:14 ALLERGIES ALLERGIES: Coded Allergies: I S O L A T I O N *CONTACT* (Verified Allergy, Unknown, 05/20/20) mrsa/ESBL No Known Medication Allergies (Verified Allergy, Unknown, 04/28/17) ROS Review of System 14 point ROS conducted with pertinent positives noted above in HPI PHYSICAL EXAM General: Alert, Oriented X3, Cooperative, No acute distress HEENT: Atraumatic Lungs: Other (diminished bases) Heart: Other (ST) Abdomen: Soft, Other (suprapubic catheter) Extremities: No edema Skin: Other (coccyx wound ) Neuro: Normal speech, Sensation intact, Other (quadriplegia.) Psych/Mental Status: Other (drowsy) MUSCULOSKELETAL: Osteoarthritic changes both hands VITALS/I&O VITALS/I&O: Vital Signs Date Time Temp Pulse Resp B/P (MAP) Pulse Ox O2 Delivery O2 Flow Rate FiO2 03/03/21 10:00 112 18 91/64 (73) 94 Room Air 03/03/21 08:00 98.0 98.0 I & O 03/02/21 03/02/21 03/03/21 15:00 23:00 07:00 Intake Total 1880 ml Output Total 1550 ml Balance 1880 ml -1550 ml LABS Lab: Laboratory Tests Test 03/03/21 03:30 White Blood Count 5.4 x10^3/uL (4.0-11.0) Red Blood Count 4.01 x10^6/uL (3.50-5.40) Hemoglobin 9.8 g/dL (12.0-15.5) L Hematocrit 30.0 % (36.0-47.0) L Mean Corpuscular Volume 75 fL (79-100) L Mean Corpuscular Hemoglobin 24 pg (25-35) L Mean Corpuscular Hemoglobin Concent 33 g/dL (31-37) Red Cell Distribution Width 16.3 % (11.5-14.5) H Platelet Count 314 x10^3/uL (140-400) Sodium Level 144 mmol/L (136-145) Potassium Level 2.6 mmol/L (3.5-5.1) *L Chloride Level 107 mmol/L (98-107) Carbon Dioxide Level 25 mmol/L (21-32) Anion Gap 12 (6-14) Blood Urea Nitrogen 5 mg/dL (7-20) L Creatinine 0.3 mg/dL (0.6-1.0) L Estimated GFR (Cockcroft-Gault) 238.5 BUN/Creatinine Ratio 17 (6-20) Glucose Level 64 mg/dL (70-99) L Calcium Level 8.5 mg/dL (8.5-10.1) Total Bilirubin 0.3 mg/dL (0.2-1.0) Aspartate Amino Transferase (AST) 12 U/L (15-37) L Alanine Aminotransferase (ALT) 10 U/L (14-59) L Alkaline Phosphatase 52 U/L (46-116) Total Protein 6.3 g/dL (6.4-8.2) L Albumin 2.3 g/dL (3.4-5.0) L Albumin/Globulin Ratio 0.6 (1.0-1.7) L Laboratory Tests 03/03/21 03:30 Laboratory Tests 03/03/21 03:30 ASSESSMENT/PLAN ASSESSMENT/PLAN 1. Metabolic encephalopathy 2. UTI, leukocytosis, sepsis 3. Progressive MS; advanced 4. Neurogenic bladder s/p suprapubic cath 5. SVT; in setting of above. s/p adenosine. Presently ST 6. Factor V Leiden on Eliquis 7. Hypokalemia being replaced 8. Chronic coccyx,sacral wounds Recommendations IVF bolus TSH Check Mg and replace as warranted Metoprolol IV PRN for sustained tachycardia Ongoing antibiotic therapy; follow cultures ANDREA PENG MD 03/03/21 7495: CARDIAC CONSULT ASSESSMENT/PLAN ASSESSMENT/PLAN Patient seen and evaluated. I agree with our nurse practitioners assessment and plan. UTI, leukocytosis, sepsis. Antibiotics. IV fluids as needed. Possible use of pressors if needed. Progressive MS; advanced Neurogenic bladder s/p suprapubic cath SVT; in setting of above. s/p adenosine. Presently ST. Will treat with IV beta- blockers as needed for tachycardia. Factor V Leiden on Eliquis Hypokalemia being replaced Chronic coccyx,sacral wounds CARLOS HENSON APRN Mar 03, 2021 10:53 ANDREA PENG MD Mar 03, 2021 16:45
[2021-03-03] MEDS ORDERED: METOPROLOL IV PUSH 5 MG/5 ML VIAL. IVP PRN (11:00)
[2021-03-03] MEDS ORDERED: IV NORMAL SALINE 500ML BAG 500 ML IV ONE (14:15)
[2021-03-03] MEDS ORDERED: MAGNESIUM SULFATE 2GM 50 ML IV ONE (15:00)
--- NOTE | 2021-03-03 16:44 | NUR ---
Wound/Ostomy Care Wound Type/Assessment: Consult for multiple pressure ulcers. Pt has stage IV PU to sacrum, and stage III PU to right and left ischium and left upper buttock. All wounds cleansed and some measured if needed. Treatment Recommendations/Plan: Pt is having frequent bowel movements so A&D will be utilized to protect wounds from stool without trapping stool under bandages. WC will follow up 03/11 for reassessment. Education provided: PU prevention, WC POC Offloading surface/device: ICU bed, pt will need P500 if transferred. Recommended Referrals/Tests: na Discharge Recommendations for dressings: continue as above noted until diarrhea stops
[2021-03-03] MEDS: ERYTHROMYCIN 0.5% OPHTH OINTMENT 1GM TUBE. OU SCH ×2 (21:00→21:22)
[2021-03-03] MEDS: ALPRAZolam 0.5 MG TABLET PO SCH (21:20)
[2021-03-04] VITALS (13 sets, daily range): BP systolic 82–115; BP diastolic 48–71
[2021-03-04] MEDS: SULFACETAMIDE 10% OPHTH SOLUTION 15ML BOTTLE. OU SCH ×6 (02:30→21:23)
[2021-03-04] MEDS: MEROPENEM 1 GM in IV NORMAL SALINE 100ML 100 ML IV SCH ×3 (05:41→23:00)
[2021-03-04] MEDS: BUDESONIDE 0.5 MG/2 ML NEBU. NEB SCH ×2 (08:01→20:06)
[2021-03-04] MEDS: PRENATAL MULTIVITAMIN TABLET. PO SCH (08:26)
[2021-03-04] MEDS: CHOLECALCIFEROL (VITAMIN D3) 1,000 UNIT TABLET PO SCH (08:26)
[2021-03-04] MEDS: MIRABEGRON 25 MG TAB.ER.24H PO SCH (08:26)
[2021-03-04] MEDS: FAMOTIDINE 20 MG TABLET. PO SCH ×2 (08:27→21:21)
[2021-03-04] MEDS: LACTOBACILLUS RHAMNOSUS GG 1 CAPSULE. PO SCH ×2 (08:27→21:19)
[2021-03-04] MEDS: FERROUS SULFATE 325 MG TABLET. PO SCH (08:27)
[2021-03-04] MEDS: SENNOSIDES 8.6 MG TABLET PO SCH (08:28)
[2021-03-04] MEDS: APIXABAN 5 MG TABLET. PO SCH ×2 (08:28→21:20)
[2021-03-04] MEDS: ASCORBIC ACID 500 MG TABLET PO SCH (08:28)
[2021-03-04] MEDS: oxyCODONE ER 10 MG TAB.ER.12H PO SCH ×2 (08:28→21:20)
[2021-03-04] MEDS: DULoxetine HCL 30 MG CAPSULE.DR PO SCH (08:28)
[2021-03-04] MEDS: ZINC SULFATE 220 MG CAPSULE. PO SCH (08:28)
[2021-03-04] MEDS: CETIRIZINE HCL 10 MG TABLET. PO SCH (08:28)
[2021-03-04] MEDS: POTASSIUM CHLORIDE 20 MEQ TABLET.ER. PO SCH (08:29)
[2021-03-04] MEDS: BACLOFEN 10 MG TABLET. PO SCH ×4 (08:29→21:19)
[2021-03-04] MEDS: OXYBUTYNIN CHLORIDE 5 MG TABLET PO SCH ×3 (08:29→21:20)
[2021-03-04] MEDS: NYSTATIN TOPICAL POWDER 15GM BOTTLE. TP SCH ×3 (08:30→21:22)
[2021-03-04] MEDS: VANCOMYCIN 125 MG/2.5 ML ORAL SOLUTION. PO SCH ×4 (08:38→21:19)
[2021-03-04] MEDS: MIDODRINE 5 MG TABLET PO SCH ×3 (08:39→18:00)
[2021-03-04 08:55] LABS: HEMOGLOBIN 10.7 g/dL (12.0-15.5); RED BLOOD COUNT 4.41 x10^6/uL (3.50-5.40); RED CELL DISTRIBUTION WIDTH 16.6 % (11.5-14.5); WHITE BLOOD COUNT 6.8 x10^3/uL (4.0-11.0)
[2021-03-04 09:15] LABS: CALCIUM 8.4 mg/dL (8.5-10.1); CREATININE 0.4 mg/dL (0.6-1.0); GFR 171.1; POTASSIUM 4.4 mmol/L (3.5-5.1)
--- NOTE | 2021-03-04 10:20 | PDOC ---
PULMONARY PROGRESS NOTES DATE: 03/04/21 TIME: 10:16 Subjective pt. remains on room air no further arrhythmia Fever overnight PT. remains very weak no other issues per nursing Vitals Vital Signs Date Time Temp Pulse Resp B/P (MAP) Pulse Ox O2 Delivery O2 Flow Rate FiO2 03/04/21 08:39 107 85/62 03/04/21 08:28 20 95 Room Air 03/04/21 07:01 100.4 100.4 ROS: No Nausea, No Chest Pain, No Abdominal Pain, No Increase Cough General: Alert, Oriented X4 Lungs: Clear Cardiovascular: S1, S2 Abdomen: Soft, Non-tender Extremities: No Edema Labs Laboratory Tests Test 03/03/21 03:30 03/03/21 11:00 03/03/21 18:15 03/04/21 08:30 White Blood Count 5.4 x10^3/uL (4.0-11.0) 6.8 x10^3/uL (4.0-11.0) Red Blood Count 4.01 x10^6/uL (3.50-5.40) 4.41 x10^6/uL (3.50-5.40) Hemoglobin 9.8 g/dL (12.0-15.5) 10.7 g/dL (12.0-15.5) Hematocrit 30.0 % (36.0-47.0) 33.0 % (36.0-47.0) Mean Corpuscular Volume 75 fL (79-100) 75 fL (79-100) Mean Corpuscular Hemoglobin 24 pg (25-35) 24 pg (25-35) Mean Corpuscular Hemoglobin Concent 33 g/dL (31-37) 32 g/dL (31-37) Red Cell Distribution Width 16.3 % (11.5-14.5) 16.6 % (11.5-14.5) Platelet Count 314 x10^3/uL (140-400) 404 x10^3/uL (140-400) Sodium Level 144 mmol/L (136-145) 147 mmol/L (136-145) Potassium Level 2.6 mmol/L (3.5-5.1) 2.8 mmol/L (3.5-5.1) 4.7 mmol/L (3.5-5.1) 4.4 mmol/L (3.5-5.1) Chloride Level 107 mmol/L (98-107) 111 mmol/L (98-107) Carbon Dioxide Level 25 mmol/L (21-32) 25 mmol/L (21-32) Anion Gap 12 (6-14) 11 (6-14) Blood Urea Nitrogen 5 mg/dL (7-20) 4 mg/dL (7-20) Creatinine 0.3 mg/dL (0.6-1.0) 0.4 mg/dL (0.6-1.0) Estimated GFR (Cockcroft-Gault) 238.5 171.1 BUN/Creatinine Ratio 17 (6-20) Glucose Level 64 mg/dL (70-99) 76 mg/dL (70-99) Calcium Level 8.5 mg/dL (8.5-10.1) 8.4 mg/dL (8.5-10.1) Total Bilirubin 0.3 mg/dL (0.2-1.0) Aspartate Amino Transf (AST/SGOT) 12 U/L (15-37) Alanine Aminotransferase (ALT/SGPT) 10 U/L (14-59) Alkaline Phosphatase 52 U/L (46-116) Total Protein 6.3 g/dL (6.4-8.2) Albumin 2.3 g/dL (3.4-5.0) Albumin/Globulin Ratio 0.6 (1.0-1.7) Magnesium Level 1.7 mg/dL (1.8-2.4) Laboratory Tests Test 03/03/21 11:00 03/03/21 18:15 03/04/21 08:30 Potassium Level 2.8 mmol/L (3.5-5.1) 4.7 mmol/L (3.5-5.1) 4.4 mmol/L (3.5-5.1) Magnesium Level 1.7 mg/dL (1.8-2.4) White Blood Count 6.8 x10^3/uL (4.0-11.0) Red Blood Count 4.41 x10^6/uL (3.50-5.40) Hemoglobin 10.7 g/dL (12.0-15.5) Hematocrit 33.0 % (36.0-47.0) Mean Corpuscular Volume 75 fL (79-100) Mean Corpuscular Hemoglobin 24 pg (25-35) Mean Corpuscular Hemoglobin Concent 32 g/dL (31-37) Red Cell Distribution Width 16.6 % (11.5-14.5) Platelet Count 404 x10^3/uL (140-400) Sodium Level 147 mmol/L (136-145) Chloride Level 111 mmol/L (98-107) Carbon Dioxide Level 25 mmol/L (21-32) Anion Gap 11 (6-14) Blood Urea Nitrogen 4 mg/dL (7-20) Creatinine 0.4 mg/dL (0.6-1.0) Estimated GFR (Cockcroft-Gault) 171.1 Glucose Level 76 mg/dL (70-99) Calcium Level 8.4 mg/dL (8.5-10.1) Medications Active Scripts Medications Dose Route/Sig Max Daily Dose Days Date Category Dose Instructions Nystatin 1 Each Powder.ea. 1 Each MC TID 03/02/21 Reported Midodrine Hcl 5 Mg Tablet 7.5 Mg PO TID 03/02/21 Reported Hold is SBP > 140 Mucinex (Guaifenesin) 600 Mg Tablet.er 600 Mg PO BID 03/02/21 Reported Acetaminophen 650 Mg/20.3 Ml Solution 650 Mg PO Q4HRS PRN 03/02/21 Reported Zinc Gluconate 100 Mg Tablet 220 Mg PO DAILY 03/02/21 Reported Hyoscyamine Sulfate 0.125 Mg Tablet 0.125 Mg PO Q4HRS PRN 03/02/21 Reported Mini Tablet ( Vit #49/Iron Fum/Fa) 1 Each Tablet 1 Each PO DAILY 09/18/20 Reported Diflucan (Fluconazole) 100 Mg Tablet 1 Tab PO DAILY 5 09/18/20 Reported Vitamin C (Ascorbic Acid) 500 Mg Capsule.er 500 Mg PO DAILY 08/20/20 Reported Melatonin 3 Mg Tablet 1 Tab PO QHS 08/18/20 Reported Santyl Ointment (Collagenase) 30 Gm Oint...g. 1 Darion TP DAILY 30 05/16/20 Reported Mupirocin Ointment (Mupirocin) 22 Gm Oint...g. 1 Darion TP PRN Q12HR 05/16/20 Reported Oxycodone HCl ER (Oxycodone HCl) 20 Mg Tab.er.12h 20 Mg PO BID 04/09/20 Reported Vitamin D3 (Cholecalciferol (Vitamin D3)) 1,250 Mcg Capsule 1,000 Mcg PO DAILY 11/30/19 Reported Miralax (Polyethylene Glycol 3350) 17 Gm Powd.pack 1 Pkt PO PRN DAILY PRN 11/30/19 Reported Myrbetriq (Mirabegron) 50 Mg Tab.er.24h 50 Mg PO DAILY 11/30/19 Reported Dantrolene Sodium 25 Mg Capsule 75 Mg PO QID 05/24/19 Reported Acidophilus (Lactobacillus Acidophilus) 1 Each Tab.chew 1 Cap PO BID 05/24/19 Reported Sennosides 8.6 Mg Tablet 8.6 Mg PO DAILY 05/24/19 Reported Percocet 5-325 Mg Tablet (Oxycodone/Acetaminophen) 1 Each Tablet 1 Tab PO PRN Q4HRS PRN 05/24/19 Reported Potassium Chloride (Potassium Chloride) 20 Meq Tablet.er 40 Meq PO DAILY 12/30/18 Reported Oxybutynin Chloride 5 Mg Tablet 5 Mg PO TID 12/30/18 Reported Loratadine 10 Mg Tablet 1 Tab PO DAILY 12/30/18 Reported Ferrous Sulfate 325 Mg Tablet 325 Mg PO DAILY 12/30/18 Reported Famotidine 20 Mg Tablet 20 Mg PO BID 12/30/18 Reported Cymbalta (Duloxetine Hcl) 30 Mg Capsule.dr 30 Mg PO DAILY 12/30/18 Reported Baclofen 20 Mg Tablet 20 Mg PO QID 12/30/18 Reported Eliquis (Apixaban) 5 Mg Tablet 5 Mg PO BID 12/30/18 Reported Alprazolam 0.5 Mg Tablet 1 Tab PO HS 12/30/18 Reported Impression . ASSESSMENT: 1. Abnormal chest x-ray. 2. Acute exacerbation of chronic obstructive pulmonary disease--improved 3. Acute bronchitis versus pneumonia. 4. Advanced multiple sclerosis. 5. Urinary tract infection 6. Bedridden. 7. History of Methicillin-resistant Staphylococcus aureus colonization. Plan . UPDATED 03/04 Pt. respiratory status is compensated, remains on room air NEBS including pulmicort Continue ABX per ID -- follow BC Follow cardiology recs PT/OT ST- aspiration precautions Replace electrolytes per IM consult senior clinical project manager-- start supplemental po support or PPN Wound care as ordered DVT/GI PPX --ricky D/Kathi ALBARADO ok to move out of ICU today UPDATED 03/03 Pt. respiratory status is compensated, remains on room air NEBS including pulmicort Continue ABX per ID -- follow BC Follow cardiology recs PT/OT IS at bedside ST- aspiration precautions Replace KCL per IM DVT/GI PPX --ricky D/W RN Thank you very much for allowing me to participate in the care of this very nice 03/02 PLAN: 1. Titrate FIO2 to keep O2 saturation 92%. 2. Start bronchodilators. 3. Start inhaled corticosteroids. 4. Continue antibiotics. 5. Aspiration precaution. 6. Follow up blood cultures. 7. The findings and recommendations were discussed with Dr. Frankel. Thank you very much for allowing me to participate in the care of this very nice NARCISA BURTON MD Mar 04, 2021 10:20
--- NOTE | 2021-03-04 10:23 | PDOC ---
CARLOS HENSON REGISTERED DIETITIAN 03/04/21 1023: CARDIO Progress Notes Date and Time Date of Service 03/04/21 Time of Evaluation 1020 Subjective Subjective: No Chest Pain, No shortness of breath, No Palpitations Vitals Vitals Vital Signs Date Time Temp Pulse Resp B/P (MAP) Pulse Ox O2 Delivery O2 Flow Rate FiO2 03/04/21 08:39 107 85/62 03/04/21 08:28 20 95 Room Air 03/04/21 07:01 100.4 100.4 Weight Weight [ ] Input and Output Intake and Output Intake and Output 03/04/21 07:00 Intake Total 840 ml Output Total 1800 ml Balance -960 ml Intake Oral 840 ml Output Urine Total 1800 ml # Bowel Movements 1 Laboratory Labs Laboratory Tests Test 03/03/21 11:00 03/03/21 18:15 03/04/21 08:30 Potassium Level 2.8 mmol/L (3.5-5.1) 4.7 mmol/L (3.5-5.1) 4.4 mmol/L (3.5-5.1) Magnesium Level 1.7 mg/dL (1.8-2.4) White Blood Count 6.8 x10^3/uL (4.0-11.0) Red Blood Count 4.41 x10^6/uL (3.50-5.40) Hemoglobin 10.7 g/dL (12.0-15.5) Hematocrit 33.0 % (36.0-47.0) Mean Corpuscular Volume 75 fL (79-100) Mean Corpuscular Hemoglobin 24 pg (25-35) Mean Corpuscular Hemoglobin Concent 32 g/dL (31-37) Red Cell Distribution Width 16.6 % (11.5-14.5) Platelet Count 404 x10^3/uL (140-400) Sodium Level 147 mmol/L (136-145) Chloride Level 111 mmol/L (98-107) Carbon Dioxide Level 25 mmol/L (21-32) Anion Gap 11 (6-14) Blood Urea Nitrogen 4 mg/dL (7-20) Creatinine 0.4 mg/dL (0.6-1.0) Estimated GFR (Cockcroft-Gault) 171.1 Glucose Level 76 mg/dL (70-99) Calcium Level 8.4 mg/dL (8.5-10.1) Microbiology Micro Microbiology 03/01/21 Urine Culture - Final, Complete 03/01/21 Blood Culture - Preliminary, Resulted NO GROWTH AFTER 2 DAYS Physical Exam HEENT: Neck Supple W Full Motion Chest: Symmetric LUNGS: Clear to Auscultation Heart: RRR Abdomen: Soft N/T Extremities: No Edema Neurology: alert, oriented, follow commands Assessment Assessment 1. Metabolic encephalopathy 2. UTI, leukocytosis, sepsis 3. Progressive MS; advanced 4. Neurogenic bladder s/p suprapubic cath 5. SVT; in setting of above. s/p adenosine and IVFs. Presently SR/ST 6. Factor V Leiden on Eliquis 7. Hypokalemia, hypomagnesemia; replaced 8. Chronic coccyx,sacral wounds Recommendations Metoprolol IV PRN for sustained tachycardia Replace electrolytes as warranted Ongoing antibiotic therapy; follow cultures Supportive care from a CV standpoint Justicifation of Admission Dx: Justifications for Admission: Justification of Admission Dx: Yes Sepsis: Infection ANDREA PENG MD 03/05/21 0857: CARDIO Progress Notes Assessment Assessment Patient seen and evaluated on 03/04/2021. I agree with our nurse practitioners assessment and plan. UTI, leukocytosis, sepsis. Continuing antibiotics and supportive care. Progressive MS; advanced Neurogenic bladder s/p suprapubic cath SVT; in setting of above. s/p adenosine and IVFs. Presently SR/ST. Continue IV metoprolol as needed. Factor V Leiden on Eliquis Hypokalemia, hypomagnesemia; replaced Chronic coccyx,sacral wounds CARLOS HENSON APRN Mar 04, 2021 10:23 ANDREA PENG MD Mar 05, 2021 08:57
--- NOTE | 2021-03-04 10:39 | PDOC ---
Infectious Disease Note Subjective: Subjective Patient says feels better Temp 100.4 today Pain is under control Vital Signs: Vital Signs Vital Signs Date Time Temp Pulse Resp B/P (MAP) Pulse Ox O2 Delivery O2 Flow Rate FiO2 03/04/21 08:39 107 85/62 03/04/21 08:28 20 95 Room Air 03/04/21 07:01 100.4 100.4 Physical Exam: PHYSICAL EXAM GENERAL: The patient is in bed, position, alert, no distress. HEENT: Pupils equally round, reactive. Normal conjunctivae. Oropharynx clear. LUNGS: Diminished aeration. No accessory muscle use. HEART: Tachycardic ABDOMEN: Not distended, soft, nontender with bowel sounds present. SPT in place. EXTREMITIES: No gross edema or cyanosis. Contractures of all four extremities. SKIN: Warm to touch. No signs of rash. She has multiple pressure wounds involving buttocks, sacrum and trochanters. Refer to wound care notes for further descriptions (pictures reviewed). No signs of infection. NEUROLOGIC: Alert, answering questions appropriately, quadriplegia. Medications: Inpatient Meds: Medications reviewed. Labs: Lab Laboratory Tests Test 03/03/21 11:00 03/03/21 18:15 03/04/21 08:30 Potassium Level 2.8 mmol/L (3.5-5.1) 4.7 mmol/L (3.5-5.1) 4.4 mmol/L (3.5-5.1) Magnesium Level 1.7 mg/dL (1.8-2.4) White Blood Count 6.8 x10^3/uL (4.0-11.0) Red Blood Count 4.41 x10^6/uL (3.50-5.40) Hemoglobin 10.7 g/dL (12.0-15.5) Hematocrit 33.0 % (36.0-47.0) Mean Corpuscular Volume 75 fL (79-100) Mean Corpuscular Hemoglobin 24 pg (25-35) Mean Corpuscular Hemoglobin Concent 32 g/dL (31-37) Red Cell Distribution Width 16.6 % (11.5-14.5) Platelet Count 404 x10^3/uL (140-400) Sodium Level 147 mmol/L (136-145) Chloride Level 111 mmol/L (98-107) Carbon Dioxide Level 25 mmol/L (21-32) Anion Gap 11 (6-14) Blood Urea Nitrogen 4 mg/dL (7-20) Creatinine 0.4 mg/dL (0.6-1.0) Estimated GFR (Cockcroft-Gault) 171.1 Glucose Level 76 mg/dL (70-99) Calcium Level 8.4 mg/dL (8.5-10.1) Objective: Assessment: 1. Healthcare-acquired pneumonia. 2. Leukocytosis. 3. Multiple pressure wounds involving sacrum, left buttocks and bilateral trochanters. 4. 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. 5. History of methicillin-resistant staphylococcus aureus, extended spectrum beta-lactamase, vancomycin-resistant enterococci pseudomonas and Clostridium difficile. . Plan: Plan of Care Cont meropenem /Zyvox po vanc BID prophylaxis Probiotics f/u cultures Monitor labs and cult Maintain aspiration precautions Wound care team consulted Offloading NAIN THOMAS MD Mar 04, 2021 10:39
[2021-03-04] MEDS: AMINO AC 3%/ELECTROLYTE/GLYCER 1,000 ML IV SCH (11:39)
--- NOTE | 2021-03-04 14:30 | PN ---
DATE: 03/04/2021 SUBJECTIVE: The patient is resting, slightly propped up in bed, in no apparent respiratory distress. She continued to have a low-grade fever this morning up to 100.4. Her heart rate is slightly elevated at 107 and blood pressure is borderline low. OBJECTIVE: GENERAL: On examining her, she was pale, cachectic, but no jaundice or cyanosis. No lymphadenopathy, no thyromegaly, no jugular venous distention, no lower limb edema. VITAL SIGNS: Her heart rate was 107, blood pressure was 85/62, temperature was 100.4, respiratory rate 20, and oxygen saturation was 98% on room air. HEENT: Normocephalic, atraumatic. NECK: Supple. HEART: Showed normal first and second heart sounds. No gallop or murmur. CHEST: Shows central trachea. LUNGS: Equal bilateral expansion air entry. She has crepitation and rhonchi anteriorly. ABDOMEN: Scaphoid, soft, nontender with suprapubic catheter. NEUROLOGIC: She is awake, alert, responding appropriately. All cranial nerves intact. She has functional quadriplegia with marked muscle wasting and fixed flexion contraction of all four limbs. She has multiple decubitus ulcers in her sacral area and bilateral trochanteric decubitus ulcer. She has a suprapubic catheter in place. Her intake was 1880, output was 1550. LABORATORY DATA: Her lab work this morning is still pending at the time of this dictation. ASSESSMENT: 1. Healthcare-associated pneumonia and questionable urinary tract infection, although the urine showed multiple organisms indicating contamination or colonization. 2. Longstanding progressive multiple sclerosis with functional quadriplegia and neurogenic bladder requiring suprapubic catheter. 3. Chronic obstructive pulmonary disease. 4. Factor V Leiden for which she is on Eliquis. 5. Multiple decubitus ulcers including stage IV sacral decubitus ulcer and bilateral trochanteric decubitus ulcer. 6. Chronic sacral osteomyelitis. 7. Neurogenic bladder requiring ____ catheter. 8. Severe protein calorie malnutrition. PLAN: To continue IV meropenem as well as linezolid as well as oral vancomycin for prophylaxis for C. diff tox. The patient can be transferred to the floor. JUJU/ASHOK/VANNA DR: JUJU/ronit TID: [id number]
[2021-03-04] MEDS: ERYTHROMYCIN 0.5% OPHTH OINTMENT 1GM TUBE. OU SCH (21:00)
[2021-03-04] MEDS: ALPRAZolam 0.5 MG TABLET PO SCH (21:19)
[2021-03-04] MEDS: VITS A & D/LANOLIN TOPICAL OINTMENT 42GM TUBE. TP PRN (21:22)
[2021-03-05] MEDS: AMINO AC 3%/ELECTROLYTE/GLYCER 1,000 ML IV SCH ×2 (00:53→11:43)
[2021-03-05] MEDS: SULFACETAMIDE 10% OPHTH SOLUTION 15ML BOTTLE. OU SCH ×6 (00:54→22:30)
[2021-03-05 02:25] VITALS: BP 113/65
[2021-03-05] MEDS: MEROPENEM 1 GM in IV NORMAL SALINE 100ML 100 ML IV SCH ×3 (06:15→21:44)
[2021-03-05 07:00] VITALS: BP 98/57
[2021-03-05] MEDS: BUDESONIDE 0.5 MG/2 ML NEBU. NEB SCH ×2 (08:15→20:40)
--- NOTE | 2021-03-05 08:20 | PDOC ---
Infectious Disease Note Subjective: Subjective Patient says feels better TMAX 100.4 today NO n/v/abdo pain Vital Signs: Vital Signs Vital Signs Date Time Temp Pulse Resp B/P (MAP) Pulse Ox O2 Delivery O2 Flow Rate FiO2 03/05/21 08:15 99 Room Air 03/05/21 02:25 98.2 93 18 113/65 (81) 98.2 Physical Exam: PHYSICAL EXAM GENERAL: The patient is in bed, position, alert, no distress. HEENT: Pupils equally round, reactive. Normal conjunctivae. Oropharynx clear. LUNGS: Diminished aeration. No accessory muscle use. HEART: Tachycardic ABDOMEN: Not distended, soft, nontender with bowel sounds present. SPT in place. EXTREMITIES: No gross edema or cyanosis. Contractures of all four extremities. SKIN: Warm to touch. No signs of rash. She has multiple pressure wounds involving buttocks, sacrum and trochanters. Refer to wound care notes for further descriptions (pictures reviewed). No signs of infection. NEUROLOGIC: Alert, answering questions appropriately, quadriplegia. Medications: Inpatient Meds: Medications reviewed. Labs: Lab Laboratory Tests Test 03/04/21 08:30 White Blood Count 6.8 x10^3/uL (4.0-11.0) Red Blood Count 4.41 x10^6/uL (3.50-5.40) Hemoglobin 10.7 g/dL (12.0-15.5) Hematocrit 33.0 % (36.0-47.0) Mean Corpuscular Volume 75 fL (79-100) Mean Corpuscular Hemoglobin 24 pg (25-35) Mean Corpuscular Hemoglobin Concent 32 g/dL (31-37) Red Cell Distribution Width 16.6 % (11.5-14.5) Platelet Count 404 x10^3/uL (140-400) Sodium Level 147 mmol/L (136-145) Potassium Level 4.4 mmol/L (3.5-5.1) Chloride Level 111 mmol/L (98-107) Carbon Dioxide Level 25 mmol/L (21-32) Anion Gap 11 (6-14) Blood Urea Nitrogen 4 mg/dL (7-20) Creatinine 0.4 mg/dL (0.6-1.0) Estimated GFR (Cockcroft-Gault) 171.1 Glucose Level 76 mg/dL (70-99) Calcium Level 8.4 mg/dL (8.5-10.1) Objective: Assessment: 1. Healthcare-acquired pneumonia. 2. Leukocytosis. 3. Multiple pressure wounds involving sacrum, left buttocks and bilateral trochanters. 4. 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. 5. History of methicillin-resistant staphylococcus aureus, extended spectrum beta-lactamase, vancomycin-resistant enterococci pseudomonas and Clostridium difficile. . Plan: Plan of Care Cont meropenem DC Zyvox and po vanco Probiotics f/u cultures Change SPT if not done already Monitor labs and cult Maintain aspiration precautions Wound care team consulted Offloading NAIN THOMAS MD Mar 05, 2021 08:20
[2021-03-05] MEDS: DULoxetine HCL 30 MG CAPSULE.DR PO SCH (08:41)
[2021-03-05] MEDS: LACTOBACILLUS RHAMNOSUS GG 1 CAPSULE. PO SCH ×2 (08:41→21:21)
[2021-03-05] MEDS: PRENATAL MULTIVITAMIN TABLET. PO SCH (08:41)
[2021-03-05] MEDS: SENNOSIDES 8.6 MG TABLET PO SCH (08:41)
[2021-03-05] MEDS: BACLOFEN 10 MG TABLET. PO SCH ×4 (08:41→21:22)
[2021-03-05] MEDS: CETIRIZINE HCL 10 MG TABLET. PO SCH (08:42)
[2021-03-05] MEDS: oxyCODONE ER 10 MG TAB.ER.12H PO SCH ×2 (08:42→21:22)
[2021-03-05] MEDS: CHOLECALCIFEROL (VITAMIN D3) 1,000 UNIT TABLET PO SCH (08:42)
[2021-03-05] MEDS: POTASSIUM CHLORIDE 20 MEQ TABLET.ER. PO SCH (08:42)
[2021-03-05] MEDS: ASCORBIC ACID 500 MG TABLET PO SCH (08:42)
[2021-03-05] MEDS: MIRABEGRON 25 MG TAB.ER.24H PO SCH (08:42)
[2021-03-05] MEDS: OXYBUTYNIN CHLORIDE 5 MG TABLET PO SCH ×3 (08:42→21:23)
[2021-03-05] MEDS: APIXABAN 5 MG TABLET. PO SCH ×2 (08:43→21:22)
[2021-03-05] MEDS: MIDODRINE 5 MG TABLET PO SCH ×3 (08:44→17:39)
[2021-03-05] MEDS: FAMOTIDINE 20 MG TABLET. PO SCH ×2 (08:45→21:22)
[2021-03-05] MEDS: FERROUS SULFATE 325 MG TABLET. PO SCH (08:45)
[2021-03-05] MEDS: ZINC SULFATE 220 MG CAPSULE. PO SCH (08:56)
[2021-03-05] MEDS: NYSTATIN TOPICAL POWDER 15GM BOTTLE. TP SCH ×3 (09:47→21:24)
--- NOTE | 2021-03-05 10:59 | PDOC ---
PULMONARY PROGRESS NOTES DATE: 03/05/21 TIME: 10:57 Subjective pt. remains on room air PT. remains very weak no other issues per nursing Vitals Vital Signs Date Time Temp Pulse Resp B/P (MAP) Pulse Ox O2 Delivery O2 Flow Rate FiO2 03/05/21 08:44 92 98/57 03/05/21 08:42 99 Room Air 03/05/21 07:00 97.6 18 97.6 ROS: No Nausea, No Chest Pain, No Abdominal Pain, No Increase Cough General: Alert, Oriented X4 Lungs: Clear Cardiovascular: S1, S2 Abdomen: Soft, Non-tender Neuro Exam: Alert, Oriented Extremities: No Edema Labs Laboratory Tests Test 03/03/21 11:00 03/03/21 18:15 03/04/21 08:30 Potassium Level 2.8 mmol/L (3.5-5.1) 4.7 mmol/L (3.5-5.1) 4.4 mmol/L (3.5-5.1) Magnesium Level 1.7 mg/dL (1.8-2.4) White Blood Count 6.8 x10^3/uL (4.0-11.0) Red Blood Count 4.41 x10^6/uL (3.50-5.40) Hemoglobin 10.7 g/dL (12.0-15.5) Hematocrit 33.0 % (36.0-47.0) Mean Corpuscular Volume 75 fL (79-100) Mean Corpuscular Hemoglobin 24 pg (25-35) Mean Corpuscular Hemoglobin Concent 32 g/dL (31-37) Red Cell Distribution Width 16.6 % (11.5-14.5) Platelet Count 404 x10^3/uL (140-400) Sodium Level 147 mmol/L (136-145) Chloride Level 111 mmol/L (98-107) Carbon Dioxide Level 25 mmol/L (21-32) Anion Gap 11 (6-14) Blood Urea Nitrogen 4 mg/dL (7-20) Creatinine 0.4 mg/dL (0.6-1.0) Estimated GFR (Cockcroft-Gault) 171.1 Glucose Level 76 mg/dL (70-99) Calcium Level 8.4 mg/dL (8.5-10.1) Medications Active Scripts Medications Dose Route/Sig Max Daily Dose Days Date Category Dose Instructions Nystatin 1 Each Powder.ea. 1 Each MC TID 03/02/21 Reported Midodrine Hcl 5 Mg Tablet 7.5 Mg PO TID 03/02/21 Reported Hold is SBP > 140 Mucinex (Guaifenesin) 600 Mg Tablet.er 600 Mg PO BID 03/02/21 Reported Acetaminophen 650 Mg/20.3 Ml Solution 650 Mg PO Q4HRS PRN 03/02/21 Reported Zinc Gluconate 100 Mg Tablet 220 Mg PO DAILY 03/02/21 Reported Hyoscyamine Sulfate 0.125 Mg Tablet 0.125 Mg PO Q4HRS PRN 03/02/21 Reported Mini Tablet ( Vit #49/Iron Fum/Fa) 1 Each Tablet 1 Each PO DAILY 09/18/20 Reported Diflucan (Fluconazole) 100 Mg Tablet 1 Tab PO DAILY 5 09/18/20 Reported Vitamin C (Ascorbic Acid) 500 Mg Capsule.er 500 Mg PO DAILY 08/20/20 Reported Melatonin 3 Mg Tablet 1 Tab PO QHS 08/18/20 Reported Santyl Ointment (Collagenase) 30 Gm Oint...g. 1 Darion TP DAILY 30 05/16/20 Reported Mupirocin Ointment (Mupirocin) 22 Gm Oint...g. 1 Darion TP PRN Q12HR 05/16/20 Reported Oxycodone HCl ER (Oxycodone HCl) 20 Mg Tab.er.12h 20 Mg PO BID 04/09/20 Reported Vitamin D3 (Cholecalciferol (Vitamin D3)) 1,250 Mcg Capsule 1,000 Mcg PO DAILY 11/30/19 Reported Miralax (Polyethylene Glycol 3350) 17 Gm Powd.pack 1 Pkt PO PRN DAILY PRN 11/30/19 Reported Myrbetriq (Mirabegron) 50 Mg Tab.er.24h 50 Mg PO DAILY 11/30/19 Reported Dantrolene Sodium 25 Mg Capsule 75 Mg PO QID 05/24/19 Reported Acidophilus (Lactobacillus Acidophilus) 1 Each Tab.chew 1 Cap PO BID 05/24/19 Reported Sennosides 8.6 Mg Tablet 8.6 Mg PO DAILY 05/24/19 Reported Percocet 5-325 Mg Tablet (Oxycodone/Acetaminophen) 1 Each Tablet 1 Tab PO PRN Q4HRS PRN 05/24/19 Reported Potassium Chloride (Potassium Chloride) 20 Meq Tablet.er 40 Meq PO DAILY 12/30/18 Reported Oxybutynin Chloride 5 Mg Tablet 5 Mg PO TID 12/30/18 Reported Loratadine 10 Mg Tablet 1 Tab PO DAILY 12/30/18 Reported Ferrous Sulfate 325 Mg Tablet 325 Mg PO DAILY 12/30/18 Reported Famotidine 20 Mg Tablet 20 Mg PO BID 12/30/18 Reported Cymbalta (Duloxetine Hcl) 30 Mg Capsule.dr 30 Mg PO DAILY 12/30/18 Reported Baclofen 20 Mg Tablet 20 Mg PO QID 12/30/18 Reported Eliquis (Apixaban) 5 Mg Tablet 5 Mg PO BID 12/30/18 Reported Alprazolam 0.5 Mg Tablet 1 Tab PO HS 12/30/18 Reported Impression . ASSESSMENT: 1. Abnormal chest x-ray. 2. Acute exacerbation of chronic obstructive pulmonary disease--resolved 3. Acute bronchitis versus pneumonia. 4. Advanced multiple sclerosis. 5. Urinary tract infection- 6. Bedridden. 7. History of Methicillin-resistant Staphylococcus aureus colonization. Plan . UPDATED 03/05 Pt. respiratory status is compensated, remains on room air CXR- elevated hemidiaphragm -- no clinical Signs of pneumonia NEBS including pulmicort Continue ABX per ID -- follow BC Follow cardiology recs PT/OT ST- aspiration precautions supplemental po support or PPN Wound care as ordered DVT/GI PPX --ricky D/W RN we will sign off as this point please call with questions or concerns NARCISA BURTON MD Mar 05, 2021 10:59
[2021-03-05 11:00] VITALS: BP 136/67
[2021-03-05 15:00] VITALS: BP 95/58
[2021-03-05 19:03] VITALS: BP 139/78
[2021-03-05] MEDS: ALPRAZolam 0.5 MG TABLET PO SCH (21:21)
[2021-03-05] MEDS: VITS A & D/LANOLIN TOPICAL OINTMENT 42GM TUBE. TP PRN (21:23)
[2021-03-05] MEDS: ERYTHROMYCIN 0.5% OPHTH OINTMENT 1GM TUBE. OU SCH (21:44)
[2021-03-05 22:31] VITALS: BP 101/56
--- NOTE | 2021-03-06 | PN ---
DATE: 03/05/2021 SUBJECTIVE: The patient is resting, slightly propped up in bed, in no apparent distress. On questioning her, denied any complaint. Nursing staff did not voice any concerns except that she is now eating more and she has eaten about 75% of her breakfast this morning. PHYSICAL EXAMINATION: GENERAL: When I examined her, she was pale, cachectic, but no jaundice, cyanosis or thyromegaly. No jugular venous distention. No limb edema. VITAL SIGNS: Her heart rate was 92, blood pressure was 98/57, temperature 97.6, respiratory rate was 18 and oxygen saturation was 99% on room air. HEENT: Showed normocephalic, atraumatic. NECK: Supple. HEART: Showed normal first and second heart sounds. No gallop or murmur. Chest: Shows central trachea, equal bilateral chest expansion, air entry, vesicular breath sounds. I could not appreciate any crepitation or rhonchi anteriorly. ABDOMEN: Scaphoid, soft with suprapubic catheter in place. NEUROLOGIC: She is awake, alert, responding appropriately. All cranial nerves intact. She has functional quadriplegia with marked muscle wasting and fixed flexion contracture. SKIN: Examination of the skin showed that she has multiple decubitus ulcers including sacral and bilateral trochanteric decubitus ulcer. She also has suprapubic catheter in place. Her intake was 840, output was 1800. LABORATORY DATA: Her white cell count was 6800, hemoglobin 11, hematocrit 33, MCV 75 and platelet count of 404,000. Her chemistry showed a serum sodium of 147, potassium 4.4, chloride 111, bicarbonate 25, anion gap 11, BUN 4, creatinine 0.4. Estimated GFR was 171 mL per minute. Glucose 76 and calcium was 8.4. ASSESSMENT: 1. Questionable healthcare-associated pneumonia. 2. Urinary tract infection, although the urine culture has grown multiple organisms indicating contamination and/or colonization. 3. Longstanding progressive multiple sclerosis with functional quadriplegia and neurogenic bladder, requiring Shafer catheter. 4. Chronic obstructive pulmonary disease. 5. Factor V Leiden, for which she is on Eliquis. 5. Multiple decubitus ulcers including stage IV sacral decubitus ulcer and bilateral trochanteric decubitus ulcer. 6. Chronic sacral osteomyelitis. 7. Neurogenic bladder, requiring suprapubic catheter. 8. Severe protein-calorie malnutrition. 9. Bilateral staghorn calculi as well as bladder calculi. It is all removed and she has multiple admissions to [facility]. PLAN: To continue with IV meropenem as per Infectious Disease and apparently the other antibiotics were discontinued. We will hopefully discharge her back to [facility] tomorrow. FLOWER DR: Clari TID: [id number]
[2021-03-06] MEDS: AMINO AC 3%/ELECTROLYTE/GLYCER 1,000 ML IV SCH (00:10)
[2021-03-06 02:06] VITALS: BP 119/76
[2021-03-06] MEDS: SULFACETAMIDE 10% OPHTH SOLUTION 15ML BOTTLE. OU SCH ×4 (02:20→13:51)
[2021-03-06 04:41] LABS: HEMATOCRIT 34.4 % (36.0-47.0); HEMOGLOBIN 11.1 g/dL (12.0-15.5); RED BLOOD COUNT 4.57 x10^6/uL (3.50-5.40); RED CELL DISTRIBUTION WIDTH 16.8 % (11.5-14.5); WHITE BLOOD COUNT 6.6 x10^3/uL (4.0-11.0)
[2021-03-06 04:55] LABS: ALBUMIN 2.4 g/dL (3.4-5.0); ALBUMIN/GLOBULIN RATIO 0.6 (1.0-1.7); CALCIUM 8.4 mg/dL (8.5-10.1); CREATININE 0.3 mg/dL (0.6-1.0); GFR 238.5; POTASSIUM 4.4 mmol/L (3.5-5.1); TOTAL BILIRUBIN 0.2 mg/dL (0.2-1.0); TOTAL PROTEIN 6.3 g/dL (6.4-8.2)
[2021-03-06] MEDS: MEROPENEM 1 GM in IV NORMAL SALINE 100ML 100 ML IV SCH (06:30)
[2021-03-06] MEDS: MIDODRINE 5 MG TABLET PO SCH ×2 (06:33→12:38)
[2021-03-06 07:00] VITALS: BP 108/70
[2021-03-06] MEDS: BUDESONIDE 0.5 MG/2 ML NEBU. NEB SCH (08:58)
[2021-03-06] MEDS: POTASSIUM CHLORIDE 20 MEQ TABLET.ER. PO SCH (09:00)
[2021-03-06] MEDS ORDERED: VITS A & D/LANOLIN TOPICAL OINTMENT 42GM TUBE. TP PRN (10:00)
[2021-03-06] MEDS: ZINC SULFATE 220 MG CAPSULE. PO SCH (10:03)
[2021-03-06] MEDS: BACLOFEN 10 MG TABLET. PO SCH ×2 (10:03→13:51)
[2021-03-06] MEDS: SENNOSIDES 8.6 MG TABLET PO SCH (10:03)
[2021-03-06] MEDS: FAMOTIDINE 20 MG TABLET. PO SCH (10:03)
[2021-03-06] MEDS: LACTOBACILLUS RHAMNOSUS GG 1 CAPSULE. PO SCH (10:03)
[2021-03-06] MEDS: OXYBUTYNIN CHLORIDE 5 MG TABLET PO SCH ×2 (10:04→13:51)
[2021-03-06] MEDS: CHOLECALCIFEROL (VITAMIN D3) 1,000 UNIT TABLET PO SCH (10:04)
[2021-03-06] MEDS: CETIRIZINE HCL 10 MG TABLET. PO SCH (10:04)
[2021-03-06] MEDS: PRENATAL MULTIVITAMIN TABLET. PO SCH (10:04)
[2021-03-06] MEDS: FERROUS SULFATE 325 MG TABLET. PO SCH (10:04)
[2021-03-06] MEDS: MIRABEGRON 25 MG TAB.ER.24H PO SCH (10:05)
[2021-03-06] MEDS: DULoxetine HCL 30 MG CAPSULE.DR PO SCH (10:05)
[2021-03-06] MEDS: ASCORBIC ACID 500 MG TABLET PO SCH (10:05)
[2021-03-06] MEDS: oxyCODONE ER 10 MG TAB.ER.12H PO SCH (10:06)
[2021-03-06] MEDS: NYSTATIN TOPICAL POWDER 15GM BOTTLE. TP SCH ×2 (10:07→13:52)
--- NOTE | 2021-03-06 10:07 | PDOC ---
Infectious Disease Note Subjective: Subjective Patient without complaints 1 loose bowel movement last night None today No acute issues per discussion with nursing staff Vital Signs: Vital Signs Vital Signs Date Time Temp Pulse Resp B/P (MAP) Pulse Ox O2 Delivery O2 Flow Rate FiO2 03/06/21 08:59 98 Room Air 03/06/21 07:00 97.7 93 14 108/70 (83) 97.7 Physical Exam: PHYSICAL EXAM GENERAL: The patient is in bed, position, alert, no distress. HEENT: Pupils equally round, reactive. Normal conjunctivae. Oropharynx clear. LUNGS: Diminished aeration. No accessory muscle use. HEART: Tachycardic ABDOMEN: Not distended, soft, nontender with bowel sounds present. SPT in place. EXTREMITIES: No gross edema or cyanosis. Contractures of all four extremities. SKIN: Warm to touch. No signs of rash. She has multiple pressure wounds involving buttocks, sacrum and trochanters. Refer to wound care notes for further descriptions (pictures reviewed). No signs of infection. NEUROLOGIC: Alert, answering questions appropriately, quadriplegia. Medications: Inpatient Meds: Medications reviewed. Labs: Lab Laboratory Tests Test 03/06/21 03:35 White Blood Count 6.6 x10^3/uL (4.0-11.0) Red Blood Count 4.57 x10^6/uL (3.50-5.40) Hemoglobin 11.1 g/dL (12.0-15.5) Hematocrit 34.4 % (36.0-47.0) Mean Corpuscular Volume 75 fL (79-100) Mean Corpuscular Hemoglobin 24 pg (25-35) Mean Corpuscular Hemoglobin Concent 32 g/dL (31-37) Red Cell Distribution Width 16.8 % (11.5-14.5) Platelet Count 378 x10^3/uL (140-400) Sodium Level 141 mmol/L (136-145) Potassium Level 4.4 mmol/L (3.5-5.1) Chloride Level 106 mmol/L (98-107) Carbon Dioxide Level 29 mmol/L (21-32) Anion Gap 6 (6-14) Blood Urea Nitrogen 10 mg/dL (7-20) Creatinine 0.3 mg/dL (0.6-1.0) Estimated GFR (Cockcroft-Gault) 238.5 BUN/Creatinine Ratio 33 (6-20) Glucose Level 86 mg/dL (70-99) Calcium Level 8.4 mg/dL (8.5-10.1) Total Bilirubin 0.2 mg/dL (0.2-1.0) Aspartate Amino Transf (AST/SGOT) 23 U/L (15-37) Alanine Aminotransferase (ALT/SGPT) 20 U/L (14-59) Alkaline Phosphatase 58 U/L (46-116) Total Protein 6.3 g/dL (6.4-8.2) Albumin 2.4 g/dL (3.4-5.0) Albumin/Globulin Ratio 0.6 (1.0-1.7) Objective: Assessment: 1. Healthcare-acquired pneumonia. Now on room air 2. Leukocytosis. Resolved 3. Multiple pressure wounds involving sacrum, left buttocks and bilateral trochanters. 4. 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. 5. History of methicillin-resistant staphylococcus aureus, extended spectrum beta-lactamase, vancomycin-resistant enterococci pseudomonas and Clostridium difficile. . Plan: Plan of Care Discontinue meropenem Augmentin Probiotics f/u cultures If diarrhea gets worse check C. difficile Change SPT if not done already Monitor labs and cult Maintain aspiration precautions Wound care team consulted Offloading NAIN THOMAS MD Mar 06, 2021 10:07
[2021-03-06] MEDS: APIXABAN 5 MG TABLET. PO SCH (10:10)
[2021-03-06 11:00] VITALS: BP 122/81
[2021-03-06] MEDS ORDERED: AMOX1TAB61 PO (12:29)
--- NOTE | 2021-03-06 13:02 | SNU/HH DC ---
DISCHARGE ORDERS DISCHARGE INFORMATION: DISCHARGE DATE: Mar 06, 2021 FINAL DIAGNOSIS Problems Medical Problems: (1) AMS (altered mental status) Status: Acute (2) UTI (urinary tract infection) Status: Acute CONDITION ON DISCHARGE: Stable CODE STATUS: Code Status: Full RESIDENTIAL: SNF STAY <30 DAYS: Yes POST DISCHARGE ORDERS: ACTIVITY ORDERS: Activity as tolerated WEIGHT BEARING STATUS: Non weight bearing DIET AFTER DISCHARGE: Regular WOUND/INCISION CARE: Keep wound/cast CDI, Change dressing CHECKS AFTER DISCHARGE: CHECKS AFTER DISCHARGE: Check blood press - daily, Check your Temp as needed TREATMENT/EQUIPMENT ORDERS: ADAPTIVE EQUIPMENT NEEDED: None, Wheelchair RESPIRATORY EQUIPMENT NEEDED: Oxygen Physical Therapy For: Evalulation/Treatment Occupational Therapy For: Evaluation/Treatment DISCHARGE MEDICATIONS: Home Meds Active Scripts Amoxicillin/Potassium Clav (AUGMENTIN 875-125 TABLET) 1 Each Tablet, 1 TAB PO BID for hcap for 7 Days, #14 TAB 0 Refills Prov:YOLI MEJIA MD 03/06/21 Reported Medications Nystatin (NYSTATIN) 1 Each Powder.ea., 1 EACH MC TID for yeasty rash, EACH 03/02/21 Midodrine Hcl (MIDODRINE HCL) 5 Mg Tablet, 7.5 MG PO TID for hypotension, TAB Hold is SBP > 140 03/02/21 Guaifenesin (MUCINEX) 600 Mg Tablet.er, 600 MG PO BID for congestion, TAB.SR 03/02/21 Acetaminophen (Acetaminophen) 650 Mg/20.3 Ml Solution, 650 MG PO Q4HRS PRN for fever/pain, MISC 03/02/21 Zinc Gluconate (ZINC GLUCONATE) 100 Mg Tablet, 220 MG PO DAILY for supplement, TAB 03/02/21 Hyoscyamine Sulfate (HYOSCYAMINE SULFATE) 0.125 Mg Tablet, 0.125 MG PO Q4HRS PRN for bladder spasms, TAB 03/02/21 Vit #49/Iron Fum/Fa (MINI TABLET) 1 Each Tablet, 1 EACH PO DAILY for supplement, TAB 09/18/20 Ascorbic Acid (VITAMIN C) 500 Mg Capsule.er, 500 MG PO DAILY for wound healing, CAP.SR 08/20/20 Melatonin (MELATONIN) 3 Mg Tablet, 1 TAB PO QHS for sleep, #30 TAB 2 Refills 08/18/20 Collagenase Clostridium Hist. (SANTYL OINTMENT) 30 Gm Oint...g., 1 ANNA TP DAILY for for 30 Days, #90 GM 0 Refills 05/16/20 Mupirocin (MUPIROCIN OINTMENT) 22 Gm Oint...g., 1 ANNA TP PRN Q12HR for , #1 TUBE 05/16/20 Oxycodone HCl (Oxycodone HCl ER) 20 Mg Tab.er.12h, 20 MG PO BID for pain, TAB.SR 04/09/20 Cholecalciferol (Vitamin D3) (Vitamin D3) 1,250 Mcg Capsule, 1000 MCG PO DAILY for SUPPLEMENT, CAP 11/30/19 Polyethylene Glycol 3350 (MIRALAX) 17 Gm Powd.pack, 1 PKT PO PRN DAILY PRN for CONSTIPATION, PKT 11/30/19 Mirabegron (MYRBETRIQ) 50 Mg Tab.er.24h, 50 MG PO DAILY for BLADDER SPASMS, TAB.SR 11/30/19 Dantrolene Sodium (DANTROLENE SODIUM) 25 Mg Capsule, 75 MG PO QID for muscle spasms , CAP 05/24/19 Lactobacillus Acidophilus (ACIDOPHILUS) 1 Each Tab.chew, 1 CAP PO BID for probiotic, TAB.CHEW 05/24/19 Sennosides (SENNOSIDES) 8.6 Mg Tablet, 8.6 MG PO DAILY for constipation, TAB 05/24/19 Oxycodone/Apap 5-325 (PERCOCET 5-325 MG TABLET ) 1 Each Tablet, 1 TAB PO PRN Q4HRS PRN for PAIN, TAB 0 Refills 05/24/19 Potassium Chloride (POTASSIUM CHLORIDE ) 20 Meq Tablet.er, 40 MEQ PO DAILY for nutritional supplement, TAB.SR 12/30/18 Oxybutynin Chloride (OXYBUTYNIN CHLORIDE) 5 Mg Tablet, 5 MG PO TID for overactiv e bladder, TAB 12/30/18 Loratadine (LORATADINE) 10 Mg Tablet, 1 TAB PO DAILY for allergies, #30 TAB 5 Refills 12/30/18 Ferrous Sulfate (FERROUS SULFATE) 325 Mg Tablet, 325 MG PO DAILY for nutritional supplement, TAB 12/30/18 Famotidine (FAMOTIDINE) 20 Mg Tablet, 20 MG PO BID for Indigestion, TAB 12/30/18 Duloxetine Hcl (CYMBALTA) 30 Mg Capsule.dr, 30 MG PO DAILY for Depression, CAP 12/30/18 Baclofen (BACLOFEN) 20 Mg Tablet, 20 MG PO QID for MUSCLE RELAXER, #30 TAB 0 Refills 12/30/18 Apixaban (ELIQUIS) 5 Mg Tablet, 5 MG PO BID for factor V, TAB 12/30/18 Alprazolam (ALPRAZOLAM) 0.5 Mg Tablet, 1 TAB PO HS for Anxiety, #30 TAB 12/30/18 Discontinued Reported Medications Fluconazole (DIFLUCAN) 100 Mg Tablet, 1 TAB PO DAILY for yeast infection for 5 Days, #5 TAB 0 Refills 09/18/20 YOLI MEJIA MD Mar 06, 2021 12:30
--- NOTE | 2021-03-06 13:53 | NUR ---
Pt ready for discharge and transfer back to [facility] ([phone]). Chart copied and orders faxed. Pt to transfer back by ambulance at 1630.
[2021-03-06 15:00] VITALS: BP 107/74
--- NOTE | 2021-03-06 18:29 | NUR ---
patient transferred back to [facility] via stretcher. suprapubic catheter changed out and wounds pictured. report called to Lesley Burgos RN.
[2021-03-06] MEDS ORDERED: AMOXICILLIN/K CLAV 875/125MG TABLET. PO SCH (21:00)
--- NOTE | 2021-04-06 19:37 | DS ---
DATE OF DISCHARGE: 03/06/2021 HOSPITAL COURSE: The patient is a 45-year-old female patient, resident at [facility] in [place], who was admitted on 03/01/2021 with altered mental status, fever and acute hypoxic respiratory failure. She was found to be hypoxic, tachycardic, her heart rate was 130, although over time. At that time she arrived, her temperature was down to 98. Fahrenheit. The patient was extensively investigated and has lab work. Chest x-ray and her urine and blood culture were obtained. Her chest x-ray showed that she might have right lower lobe infiltrate and UA was consistent with urinary tract infection. She also received 2 liters of normal saline and was started on IV antibiotic empirically. She was seen in consultation by the infectious disease specialist as well as the national account manager and the crm campaign manager as she has episodes of atrial fibrillation with rapid ventricular response and she did actually very well. Her urine culture showed multiple organisms indicating contamination versus colonization. Her blood cultures were negative; however, the patient's white cell count has improved dramatically from 12,000 to ____ and her chemistry was also improved and a decision was made to discharge her back to [facility] in [place] on the day of discharge. PHYSICAL EXAMINATION: GENERAL: She looked well and was clearly in no apparent respiratory distress. She was pale, cachectic, but no jaundice, cyanosis or thyromegaly. No jugular distention. No limb edema. VITAL SIGNS: Her heart rate was 96, blood pressure is 107/74, temperature was 97.8, respiratory rate was 16 and oxygen saturation was 98%. HEAD, EYES, EARS, NOSE, AND THROAT: Normocephalic, atraumatic. NECK: Supple. HEART: Showed normal first and second heart sounds, no gallop, murmur. CHEST: Clear to auscultation. No crepitation or rhonchi. ABDOMEN: Scaphoid, soft, nontender with suprapubic catheter in place. There is no guarding or rigidity. No organomegaly. All hernial orifice intact. Bowel sounds normal. NEUROLOGIC: She is awake, alert, responding appropriately. She has functional quadriplegia secondary to progressive multiple sclerosis with neurogenic bladder and bowel. She has large sacral decubitus ulcer. Her intake over the last 24 hours was 300, output was 2100. LABORATORY DATA: Her most recent lab work showed her white cell count is ____, her hemoglobin is 11, hematocrit 34, MCV 75 and platelet count 378,000. Her chemistry showed a serum sodium 141, potassium 4.4, chloride 106, bicarbonate 29, anion gap of 6, BUN of 10, creatinine 0.3. Estimated GFR was 238 mL per minute. Her glucose was 86, calcium was 8.4, total bilirubin, AST, ALT, alkaline phosphatase were normal. Total protein 6.3, albumin was 2.4. Her prothrombin time and INR 17.8 and 1.5. Her urinalysis was unremarkable. Nasal screen for MRSA was positive. DISCHARGE MEDICATIONS: She was discharged home to continue on following medications: She should continue on amoxicillin/clavulanic acid 875/125 one tablet twice a day for 7 more days, acetaminophen 650 mg every 4 hours, alprazolam 0.5 mg at bedtime, apixaban or Eliquis 5 mg twice a day. She is on ascorbic acid 500 mg daily, baclofen 20 mg 4 times a day, cholecalciferol, vitamin D3 at 1000 international unit once a day, collagenase or Santyl apply topically daily, dantrolene 75 mg 4 times a day, duloxetine 30 mg once a day and famotidine 20 mg twice a day, ferrous sulfate 325 mg daily. She is also on guaifenesin or Mucinex 600 mg twice a day, hyoscyamine 0.125 mg every 4 hours, lactobacillus acidophilus 1 capsule twice a day, loratadine 10 mg once a day, melatonin 3 mg at bedtime, midodrine 7.5 mg 3 times a day. FINAL DISCHARGE DIAGNOSES: 1. Healthcare-associated pneumonia. 2. Urinary tract infection. 3. Longstanding progressive multiple sclerosis with spastic quadriplegia, neurogenic bladder and requiring suprapubic catheter. 4. Chronic obstructive pulmonary disease. 4. Factor V Leiden for which she is on Eliquis. 5. Multiple decubitus ulcers including stage IV sacral decubitus ulcer and bilateral trochanteric decubitus ulcer. 6. Chronic sacral osteomyelitis. 7. Neurogenic bladder requiring suprapubic catheter. 8. Severe protein-calorie malnutrition. 9. Bilateral staghorn calculi as well as bladder calculi. It was all removed. She has multiple admissions to [facility]. JUJU/JN/SIOBHAN DR: Clari TID: [id number]
== END 2021-03-06 17:15 | DRG 871 ==
LOC: ER 13:52 → ED HOLD 18:13 → 6 SOUTH 20:14 → 1 WEST ICU 03-03 05:26 → 2 SOUTH 03-04 14:23
PROVIDERS: ADMIT Internal Medicine; ATTEND Internal Medicine
DX: A41.9 Sepsis, unspecified organism (principal); L89.154 Pressure ulcer of sacral region, stage 4; J18.9 Pneumonia, unspecified organism; R53.2 Functional quadriplegia; E43 Unspecified severe protein-calorie malnutrition; G93.41 Metabolic encephalopathy; J44.0 Chronic obstructive pulmonary disease with (acute) lower respiratory infection; Z16.21 Resistance to vancomycin; D68.51 Activated protein C resistance; I47.1 Supraventricular tachycardia; J44.1 Chronic obstructive pulmonary disease with (acute) exacerbation; M46.28 Osteomyelitis of vertebra, sacral and sacrococcygeal region; N39.0 Urinary tract infection, site not specified; Y95 Nosocomial condition; Z86.14 Personal history of Methicillin resistant Staphylococcus aureus infection; G35 Multiple sclerosis; B95.2 Enterococcus as the cause of diseases classified elsewhere; E83.42 Hypomagnesemia; E87.6 Hypokalemia; G89.29 Other chronic pain; L89.219 Pressure ulcer of right hip, unspecified stage; L89.229 Pressure ulcer of left hip, unspecified stage; N20.0 Calculus of kidney; N21.0 Calculus in bladder; N31.9 Neuromuscular dysfunction of bladder, unspecified; R09.02 Hypoxemia; Z74.01 Bed confinement status; Z79.01 Long term (current) use of anticoagulants; Z82.49 Family history of ischemic heart disease and other diseases of the circulatory system; Z86.19 Personal history of other infectious and parasitic diseases; Z86.59 Personal history of other mental and behavioral disorders; Z86.711 Personal history of pulmonary embolism; Z86.718 Personal history of other venous thrombosis and embolism; Z87.440 Personal history of urinary (tract) infections; Z87.442 Personal history of urinary calculi; Z87.891 Personal history of nicotine dependence; F41.9 Anxiety disorder, unspecified; F32.9 Major depressive disorder, single episode, unspecified; K21.9 Gastro-esophageal reflux disease without esophagitis; K57.90 Diverticulosis of intestine, part unspecified, without perforation or abscess without bleeding
CPT/HCPCS: 36415; 71045; 80048; 80053; 81001; 83605; 83690; 83735; 84132; 84484; 85007; 85025; 85027; 85610; 87040; 87086; 87641; 93005; 94640; 94760; 96361; 96365; 96375; 99285; J0153; J2020; J2185; J2543; J3475; J3490; J7030; J7040; G0378; J7626; J7644

== ENCOUNTER 2021-07-01 13:26 | Inpatient (IN) | payer MEDICARE, OTHER ==
[~2021-07-01] VITALS: Ht 172.7 cm; Wt 60.8 kg
[~2021-07-01 13:26] MED LIST changes: +ACET650S19 PO; +BUDE0.5A IH; +CETI10TA16 PO; +CHOL10004 PO; +HYOS0.1279 PO; +HYPO40SP TP; +LIDO5CRE9 TP; +MIDO5TAB4 PO; +NYST1POW24 MC; +OXYC5TAB2 PO; +ZINC100T PO; +ZINC220C2 PO
[2021-07-01] MEDS ORDERED: PIP/TAZO PER PHARMACY MC PRN (13:45)
[2021-07-01] MEDS ORDERED: VANCOMYCIN 1.5 GM in IV NORMAL SALINE 500ML BAG 500 ML IV ONE (14:00)
[2021-07-01] MEDS ORDERED: ACETAMINOPHEN 650 MG SUPP.RECT. PR ONE (14:00)
[2021-07-01] MEDS ORDERED: IV NORMAL SALINE 1000ML BAG 1,000 ML IV ONE ×2 (14:00)
--- NOTE | 2021-07-01 14:25 | RAD ---
EXAM: Chest, single view. HISTORY: Fever. Sepsis. COMPARISON: 05/23/2021 FINDINGS: A frontal view of the chest is obtained. There is stable elevation of the right hemidiaphra gm. There is right lower lobe interstitial opacity likely due to compressive atelectasis or interstit ial infiltrate. There is no pneumothorax. The heart is normal in size. IMPRESSION: Elevation of the right hemidiaphragm with right lower lobe compression atelectasis or int erstitial infiltrate. Electronically signed by: Cherri Fox MD (07/01/2021 2:23 PM) [id number]
--- NOTE | 2021-07-01 15:22 | PHYS DOC ---
Past Medical History Past Medical History: Anxiety, COPD, Depression, Pneumonia, UTI, Other Additional Past Medical Histor: MS,FACTOR 5,WOUND ON COCCYX, SEPSIS Past Surgical History: Other Additional Past Surgical Histo: DEBRIDMENT ON COCCYX; suprapubic cath Smoking Status: Former Smoker Alcohol Use: None Drug Use: Marijuana General Adult EDM: Chief Complaint: RAPID HEART RATE HPI: HPI: 45-year-old female with a history of MS and contractures, [facility] resident presents to the emergency department with elevated heart rate that was discovered by her nursing facility earlier today. She was just in the hospital for sepsis from a urological source, and this is again suspected today. Patient states that she has difficulty with urination and pain upon urination. She d enies any chest pain or shortness of breath at this time and denies any abdominal pain. She nods yes or no to questioning but is unable to provide further history Review of Systems: Review of Systems: Further ROS is unable to be obtained secondary to patient's clinical condition Heart Score: C/O Chest Pain: No Current Medications: Current Medications Medications (Trade) Dose Ordered Sig/Amber Start Time Stop Time Status Last Admin Dose Admin Acetaminophen (Tylenol Supp) 650 mg 1X ONCE 07/01/21 14:00 07/01/21 14:01 DC Piperacillin Sod/ Tazobactam Sod (Zosyn Per Pharmacy) 1 each PRN DAILY PRN 07/01/21 13:45 Piperacillin Sod/ Tazobactam Sod 3.375 gm/Sodium Chloride 50 ml @ 100 mls/hr Q6HRS 07/01/21 18:00 Sodium Chloride 1,000 ml @ 1,000 mls/hr 1X ONCE 07/01/21 14:00 07/01/21 14:59 DC Vancomycin HCl (Vanco Per Pharmacy) 1 each PRN DAILY PRN 07/01/21 13:45 Vancomycin HCl 1.5 gm/Sodium Chloride 500 ml @ 250 mls/hr 1X ONCE 07/01/21 14:00 07/01/21 15:59 Allergies: Allergies: Allergies Coded Allergies Type Severity Reaction Last Updated Verified I S O L A T I O N *CONTACT* Allergy Unknown 05/20/20 Yes No Known Medication Allergies Allergy Unknown 04/28/17 Yes Physical Exam: PE: Constitutional: Appears chronically ill. Contractures are noted HENT: Atraumatic, bilateral external ears normal, nose normal. Eyes: PERRLA, EOMI, conjunctiva normal, no discharge. Neck: Normal range of motion, supple, no stridor. Cardiovascular: Tachycardic heart rate, 2+ radial pulses Lungs & Thorax: No respiratory distress, symmetrical expansion. Coarse breath sounds bilaterally Abdomen: Soft, no tenderness Skin: Warm, dry. Extremities: No tenderness, no cyanosis, ROM intact, no edema. Neurologic: Patient is alert, contractures are apparent, she nods yes or no to questioning. Current Patient Data: Labs: Laboratory Tests Test 07/01/21 16:15 07/01/21 16:35 Sodium Level 143 mmol/L (136-145) Potassium Level 4.6 mmol/L (3.5-5.1) Chloride Level 106 mmol/L (98-107) Carbon Dioxide Level 26 mmol/L (21-32) Anion Gap 11 (6-14) Blood Urea Nitrogen 9 mg/dL (7-20) Creatinine 0.4 mg/dL (0.6-1.0) Estimated GFR (Cockcroft-Gault) 171.1 Glucose Level 114 mg/dL (70-99) Calcium Level 9.3 mg/dL (8.5-10.1) Total Bilirubin 0.3 mg/dL (0.2-1.0) Direct Bilirubin 0.1 mg/dL (0.0-0.2) Aspartate Amino Transf (AST/SGOT) 13 U/L (15-37) Alanine Aminotransferase (ALT/SGPT) 13 U/L (14-59) Alkaline Phosphatase 66 U/L (46-116) Total Protein 6.9 g/dL (6.4-8.2) Albumin 2.8 g/dL (3.4-5.0) White Blood Count 18.5 x10^3/uL (4.0-11.0) Red Blood Count 4.74 x10^6/uL (3.50-5.40) Hemoglobin 11.3 g/dL (12.0-15.5) Hematocrit 34.8 % (36.0-47.0) Mean Corpuscular Volume 73 fL (79-100) Mean Corpuscular Hemoglobin 24 pg (25-35) Mean Corpuscular Hemoglobin Concent 33 g/dL (31-37) Red Cell Distribution Width 20.1 % (11.5-14.5) Platelet Count 516 x10^3/uL (140-400) Neutrophils (%) (Auto) 84 % (31-73) Lymphocytes (%) (Auto) 9 % (24-48) Monocytes (%) (Auto) 7 % (0-9) Eosinophils (%) (Auto) 0 % (0-3) Basophils (%) (Auto) 1 % (0-3) Neutrophils # (Auto) 15.6 x10^3/uL (1.8-7.7) Lymphocytes # (Auto) 1.6 x10^3/uL (1.0-4.8) Monocytes # (Auto) 1.3 x10^3/uL (0.0-1.1) Eosinophils # (Auto) 0.0 x10^3/uL (0.0-0.7) Basophils # (Auto) 0.1 x10^3/uL (0.0-0.2) Lactic Acid Level 1.3 mmol/L (0.4-2.0) Vital Signs: Vital Signs Date Time Temp Pulse Resp B/P (MAP) Pulse Ox O2 Delivery O2 Flow Rate FiO2 07/01/21 13:41 98.9 127 24 126/91 (64) 97 Nasal Cannula 4.0 98.9 Radiology/Procedures: Radiology/Procedures: PROCEDURE: CHEST AP ONLY EXAM: Chest, single view. HISTORY: Fever. Sepsis. COMPARISON: 05/23/2021 FINDINGS: A frontal view of the chest is obtained. There is stable elevation of the right hemidiaphragm. There is right lower lobe interstitial opacity likely due to compressive atelectasis or interstitial infiltrate. There is no pneumothorax. The heart is normal in size. IMPRESSION: Elevation of the right hemidiaphragm with right lower lobe compression atelectasis or interstitial infiltrate. Electronically signed by: Cherri Fox MD (07/01/2021 2:23 PM)[] Course & Med Decision Making: Course & Med Decision Making Date/ Time: 1524 Confirmed: patient, procedure, side, site, safety procedures followed. Performed by: Pato marin DO. Informed consent: verbal Indication: medication delivery, resuscitation. Preparation: sterile preparation of site (with 2% chlorhexidine gluconate, draped to expose affected area, with full drapes, gown, gloves and mask), vessel was identified ultrasound guided, position head turned to left. Patient contracted and unable to fully move head to left. Anesthesia: local, 1% lidocaine without epinephrine, 3 ml. Technique: percutaneous, Seldinger technique used, ultrasound localization used, location: (right, internal jugular vein ), anterior approach used, catheter type (7 Georgian, triple lumen catheter), location confirmed via flashback, cathet er flushed with saline, dressing applied (catheter secured, semi-permeable transparent dressing applied), monitoring during procedure (blood pressure, cardiac, continuous pulse oximetry). Procedure tolerated: well. Findings: visualized wire in correct position in vein with ultrasound, location confirmed on post procedure chest x-ray in adequate position. Complications at the time of procedure: none. Total time: 45 minutes Care was delayed because it was difficult to obtain IV access in this patient d ue to her MS status, contractures, hypovolemia. Her blood pressure remained stable in the emergency department but she was tachycardic with a fever. Suspected source is from her urine. She was started on vancomycin and Zosyn after placement of the central line. Her lactic was 1.3 white count of 18.5. She was given fluids in the emergency department. She will be admitted to her primary care physician Dr. Frankel Departure Departure Impression: Primary Impression: Sepsis Disposition: ADMITTED INPATIENT Admitting Physician: Madi. Eisenberg Condition: STABLE Referrals: YOLI FRANKEL MD (PCP) PATO MCCRAY DO Jul 01, 2021 15:22
--- NOTE | 2021-07-01 16:49 | RAD ---
EXAM: Chest, single view. HISTORY: Line placement. COMPARISON: 07/01/2021 FINDINGS: A frontal view of the chest is obtained. There is a right internal jugular catheter with th e tip overlying the expected location of the superior cavoatrial junction. There is stable elevation of the right hemidiaphragm and suspected right middle and lower lobe compressive atelectasis or inter stitial infiltrate. There is no pneumothorax. There is no convincing pleural effusion. The heart is s table in size. IMPRESSION: 1. Right internal jugular catheter with the tip overlying expected location of the superior cavoatria l junction. There is no pneumothorax. 2. Stable elevation of the right hemidiaphragm and right middle and lower lobe airspace disease. Electronically signed by: Cherri Fox MD (07/01/2021 4:47 PM) [id number]
[2021-07-01 16:50] LABS: CALCIUM 9.3 mg/dL (8.5-10.1); CREATININE 0.4 mg/dL (0.6-1.0); GFR 171.1; POTASSIUM 4.6 mmol/L (3.5-5.1)
[2021-07-01 16:56] LABS: ALBUMIN 2.8 g/dL (3.4-5.0); DIRECT BILIRUBIN 0.1 mg/dL (0.0-0.2); TOTAL BILIRUBIN 0.3 mg/dL (0.2-1.0); TOTAL PROTEIN 6.9 g/dL (6.4-8.2)
[2021-07-01] MEDS: PIPERACILLIN/TAZOBACTAM 3.375 GM in IV NORMAL SALINE 50ML 50 ML IV SCH (17:00)
[2021-07-01 17:04] LABS: BASO # 0.1 x10^3/uL (0.0-0.2); BASO % 1 % (0-3); EOS % 0 % (0-3); HEMATOCRIT 34.8 % (36.0-47.0); HEMOGLOBIN 11.3 g/dL (12.0-15.5); LYMPH # 1.6 x10^3/uL (1.0-4.8); LYMPH % 9 % (24-48); MEAN CORPUSCULAR HEMOGLOBIN 24 pg (25-35); MEAN CORPUSCULAR HGB CONC 33 g/dL (31-37); MEAN CORPUSCULAR VOLUME 73 fL (79-100); MONO # 1.3 x10^3/uL (0.0-1.1); MONO % 7 % (0-9); NEUT # 15.6 x10^3/uL (1.8-7.7); NEUT % 84 % (31-73); PLATELET COUNT 516 x10^3/uL (140-400); RED BLOOD COUNT 4.74 x10^6/uL (3.50-5.40); RED CELL DISTRIBUTION WIDTH 20.1 % (11.5-14.5); WHITE BLOOD COUNT 18.5 x10^3/uL (4.0-11.0)
[2021-07-01] MEDS ORDERED: ACETAMINOPHEN 325 MG TABLET. PO PRN (18:00)
[2021-07-01] MEDS ORDERED: ONDANSETRON PF 4 MG/2 ML VIAL. IVP PRN (18:00)
[2021-07-01 18:39] LABS: % BANDS 2 % (0-9); % EOS 1 % (0-5); % LYMPHS 7 % (24-48); % MONOS 7 % (0-10); % SEGS 83 % (35-66); PLT ESTIMATE INCREASED (ADEQUATE)
[2021-07-01 18:40] LABS: MICROCYTOSIS MOD
[2021-07-01] MEDS: VANCOMYCIN PER PHARMACY MC PRN (18:53)
--- NOTE | 2021-07-01 18:55 | NUR ---
Pharmacy Vancomycin Dosing Note S:Consulted to monitor and dose vancomycin started 07/01/21. O:LENNY EVERETT is a 45 year old F with Empir[employer]. Height: 5 feet, 8 inches Weight: 69 kg Dell Body Weight: 45.50 Adjusted Body Weight: 45.50 Dosing Weight: Actual Other Antibiotics: zosyn 3.375 gm LABS: Last BUN: 9 Last Creatinine: 0.4 Creatinine Clearance: > 100 mL/min Last WBC: 18.5 Last Procalcitonin: -- Tmax (past 24 hours): 98.9 Microbiology: 07/01: blood cx pending I/O: -- Last dose given 07/01/21 at 1828 Vancomycin Dosing: Loading Dose: 1500 mg x1 Dosing Weight: Actual Target Trough: 10-20 A: Based on: patient's age, weight and renal function. P: 1. Begin Vancomycin 1000 mg IV q12h after initial loading dose. 2. Follow up Trough level on 07/03/21 at 0600. 3. Pharmacy will continue to monitor, follow and adjust therapy as needed. CHRISTOFER AVENDANO Wei, 07/01/21 [id number]
[2021-07-01 20:44] LABS: BILIRUBIN,URINE NEGATIVE (NEG); CLARITY,URINE CLOUDY; NITRITE,URINE NEGATIVE (NEG); PH,URINE 7.5 (<5.0-8.0); PROTEIN,URINE 100 mg/dL (NEG-TRACE); UROBILINOGEN,URINE 0.2 mg/dL (0.2 mg/dL)
[2021-07-01 20:49] LABS: COLOR,URINE AMBER; U PREG PATIENT NEGATIVE (NEG)
[2021-07-01 20:51] LABS: RBC,URINE TNTC /HPF (0-2)
[2021-07-01 20:52] LABS: BACTERIA,URINE FEW /HPF (0-FEW); WBC,URINE 20-40 /HPF (0-4)
[2021-07-01 22:05] VITALS: BP 141/94
[2021-07-02] MEDS: PIPERACILLIN/TAZOBACTAM 3.375 GM in IV NORMAL SALINE 50ML 50 ML IV SCH ×5 (01:07→23:33)
[2021-07-02 03:00] VITALS: BP 108/73
--- NOTE | 2021-07-02 06:21 | NUR ---
IP: Pt has a long hx of + mrsa screens with most recent on 03/01/21 and ESBL in urine with most recent on 05/15/20. Pt to be in contact precautions until there are 2 negatives from each source.
[2021-07-02 07:19] LABS: BASO # 0.1 x10^3/uL (0.0-0.2); BASO % 1 % (0-3); EOS # 0.1 x10^3/uL (0.0-0.7); EOS % 1 % (0-3); HEMATOCRIT 28.4 % (36.0-47.0); HEMOGLOBIN 9.2 g/dL (12.0-15.5); LYMPH # 1.2 x10^3/uL (1.0-4.8); LYMPH % 11 % (24-48); MEAN CORPUSCULAR HEMOGLOBIN 24 pg (25-35); MEAN CORPUSCULAR HGB CONC 32 g/dL (31-37); MEAN CORPUSCULAR VOLUME 75 fL (79-100); MONO # 0.8 x10^3/uL (0.0-1.1); MONO % 8 % (0-9); NEUT # 8.4 x10^3/uL (1.8-7.7); NEUT % 80 % (31-73); PLATELET COUNT 348 x10^3/uL (140-400); RED BLOOD COUNT 3.82 x10^6/uL (3.50-5.40); RED CELL DISTRIBUTION WIDTH 20.4 % (11.5-14.5); WHITE BLOOD COUNT 10.5 x10^3/uL (4.0-11.0)
[2021-07-02 07:30] LABS: CALCIUM 8.6 mg/dL (8.5-10.1); CREATININE 0.4 mg/dL (0.6-1.0); GFR 171.1; POTASSIUM 3.6 mmol/L (3.5-5.1)
[2021-07-02 09:21] VITALS: BP 128/81
[2021-07-02] MEDS: VANCOMYCIN 1 GM in IV NORMAL SALINE 250ML 250 ML IV SCH ×2 (09:26→18:12)
[2021-07-02] MEDS: VANCOMYCIN PER PHARMACY MC PRN (09:51)
[2021-07-02] MEDS ORDERED: POLYETHYLENE GLYCOL 3350 17 GM PACKET. PO PRN (10:45)
[2021-07-02 11:00] VITALS: BP 127/75
[2021-07-02] MEDS: APIXABAN 5 MG TABLET. PO SCH ×2 (11:00→20:33)
--- NOTE | 2021-07-02 11:01 | PDOC2 ---
KHADIJAH DUTTA [employer] 07/02/21 1101: CARDIAC CONSULT DATE OF CONSULT Date of Consult DATE: 07/02/21 TIME: 10:55 REASON FOR CONSULT Reason for Consult: AFIB RVR REFERRING PHYSICIAN Referring Physician: Jostin SOURCE Source: Chart review, Patient HISTORY OF PRESENT ILLNESS HISTORY OF PRESENT ILLNESS This is a pleasant 45 yo female admitted for noted fast heart rate. Further workup revealed UTI. She does have hx of PSVT but no hx of AFIB. Further review noted with SR/ST and no AFIB. No tele strips that reveals this. Denies any chest pain or SOA. No nausea or vomiting. She has advanced MS. Presently no fever but significant for leukocytosis/UTI with chronic martini cath use. No prior hx of CAD. PAST MEDICAL HISTORY Past Medical History Cardiac: PSVT, orthostasis? Pulmonary: COPD, Pneumonia CENTRAL NERVOUS SYSTEM: Other (MS) GI: Diverticulosis, GERD Heme/Onc: Anemia NOS, Other (Factor V Leiden ) Psych: Anxiety, Depression Renal/: UTI, Other (neurogenic bladder, requiring suprapubic catheter.) PAST SURGICAL HISTORY Past Surgical History suprapubic catheter, debridement of her coccyx FAMILY HISTORY Family History factor V Leiden SOCIAL HISTORY Smoke: Quit ALCOHOL: none Drugs: None Lives: [facility] CURRENT MEDICATIONS CURRENT MEDICATIONS Current Medications Medications (Trade) Dose Ordered Sig/Amber Route PRN Reason Start Time Stop Time Status Last Admin Dose Admin Sodium Chloride 1,000 ml @ 1,000 mls/hr 1X ONCE IV 07/01/21 14:00 07/01/21 14:59 DC 07/01/21 17:00 Sodium Chloride 1,000 ml @ 1,000 mls/hr 1X ONCE IV 07/01/21 14:00 07/01/21 14:59 DC 07/01/21 17:00 Vancomycin HCl (Vanco Per Pharmacy) 1 each PRN DAILY PRN MC SEE COMMENTS 07/01/21 13:45 07/02/21 09:51 Vancomycin HCl 1.5 gm/Sodium Chloride 500 ml @ 250 mls/hr 1X ONCE IV 07/01/21 14:00 07/01/21 15:59 DC 07/01/21 18:28 Piperacillin Sod/ Tazobactam Sod 3.375 gm/Sodium Chloride 50 ml @ 100 mls/hr Q6HRS IV 07/01/21 18:00 07/02/21 06:04 Vancomycin HCl 1 gm/Sodium Chloride 250 ml @ 250 mls/hr Q12H IV 07/02/21 06:30 07/02/21 09:26 ALLERGIES ALLERGIES: Coded Allergies: I S O L A T I O N *CONTACT* (Verified Allergy, Unknown, 05/20/20) mrsa/ESBL No Known Medication Allergies (Verified Allergy, Unknown, 04/28/17) ROS Review of System 14 point ROS evaluated with pertinent positives noted per HPI PHYSICAL EXAM General: Alert, Oriented X3, Cooperative, No acute distress HEENT: Atraumatic, Mucous membr. moist/pink Lungs: Other (diminished) Heart: Regular rate (SR/ST), Normal S1, Normal S2, No murmurs Abdomen: Soft, No tenderness Extremities: No cyanosis, No edema Skin: Other (coccyx wound) Neuro: Normal speech, Sensation intact Psych/Mental Status: Mental status NL MUSCULOSKELETAL: Other (Weakness to all extremities) VITALS/I&O VITALS/I&O: Vital Signs Date Time Temp Pulse Resp B/P (MAP) Pulse Ox O2 Delivery O2 Flow Rate FiO2 07/02/21 09:21 97.5 125 14 128/81 (97) 93 Room Air 97.5 07/01/21 20:36 2.0 I & O 07/01/21 07/01/21 07/02/21 15:00 23:00 07:00 Intake Total 2550 ml Balance 2550 ml LABS Lab: Laboratory Tests Test 07/01/21 16:15 07/01/21 16:35 07/01/21 20:30 07/02/21 07:00 Sodium Level 143 mmol/L (136-145) 144 mmol/L (136-145) Potassium Level 4.6 mmol/L (3.5-5.1) 3.6 mmol/L (3.5-5.1) # Chloride Level 106 mmol/L (98-107) 110 mmol/L (98-107) H Carbon Dioxide Level 26 mmol/L (21-32) 24 mmol/L (21-32) Anion Gap 11 (6-14) 10 (6-14) Blood Urea Nitrogen 9 mg/dL (7-20) 9 mg/dL (7-20) Creatinine 0.4 mg/dL (0.6-1.0) L 0.4 mg/dL (0.6-1.0) L Estimated GFR (Cockcroft-Gault) 171.1 171.1 Glucose Level 114 mg/dL (70-99) H 88 mg/dL (70-99) Calcium Level 9.3 mg/dL (8.5-10.1) 8.6 mg/dL (8.5-10.1) Total Bilirubin 0.3 mg/dL (0.2-1.0) Direct Bilirubin 0.1 mg/dL (0.0-0.2) Aspartate Amino Transferase (AST) 13 U/L (15-37) L Alanine Aminotransferase (ALT) 13 U/L (14-59) L Alkaline Phosphatase 66 U/L (46-116) Total Protein 6.9 g/dL (6.4-8.2) Albumin 2.8 g/dL (3.4-5.0) L White Blood Count 18.5 x10^3/uL (4.0-11.0) H 10.5 x10^3/uL (4.0-11.0) Red Blood Count 4.74 x10^6/uL (3.50-5.40) 3.82 x10^6/uL (3.50-5.40) Hemoglobin 11.3 g/dL (12.0-15.5) L 9.2 g/dL (12.0-15.5) L Hematocrit 34.8 % (36.0-47.0) L 28.4 % (36.0-47.0) L Mean Corpuscular Volume 73 fL (79-100) L 75 fL (79-100) L Mean Corpuscular Hemoglobin 24 pg (25-35) L 24 pg (25-35) L Mean Corpuscular Hemoglobin Concent 33 g/dL (31-37) 32 g/dL (31-37) Red Cell Distribution Width 20.1 % (11.5-14.5) H 20.4 % (11.5-14.5) H Platelet Count 516 x10^3/uL (140-400) H 348 x10^3/uL (140-400) Neutrophils (%) (Auto) 84 % (31-73) H 80 % (31-73) H Lymphocytes (%) (Auto) 9 % (24-48) L 11 % (24-48) L Monocytes (%) (Auto) 7 % (0-9) 8 % (0-9) Eosinophils (%) (Auto) 0 % (0-3) 1 % (0-3) Basophils (%) (Auto) 1 % (0-3) 1 % (0-3) Neutrophils # (Auto) 15.6 x10^3/uL (1.8-7.7) H 8.4 x10^3/uL (1.8-7.7) H Lymphocytes # (Auto) 1.6 x10^3/uL (1.0-4.8) 1.2 x10^3/uL (1.0-4.8) Monocytes # (Auto) 1.3 x10^3/uL (0.0-1.1) H 0.8 x10^3/uL (0.0-1.1) Eosinophils # (Auto) 0.0 x10^3/uL (0.0-0.7) 0.1 x10^3/uL (0.0-0.7) Basophils # (Auto) 0.1 x10^3/uL (0.0-0.2) 0.1 x10^3/uL (0.0-0.2) Segmented Neutrophils % 83 % (35-66) H Band Neutrophils % 2 % (0-9) Lymphocytes % 7 % (24-48) L Monocytes % 7 % (0-10) Eosinophils % 1 % (0-5) Platelet Estimate Increased (ADEQUATE) Microcytosis Mod Macrocytosis Slight Lactic Acid Level 1.3 mmol/L (0.4-2.0) Urine Collection Type U cath Urine Color Fern Urine Clarity Cloudy Urine pH 7.5 (<5.0-8.0) Urine Specific Speed 1.025 (1.000-1.030) Urine Protein 100 mg/dL (NEG-TRACE) Urine Glucose (UA) Negative mg/dL (NEG) Urine Ketones (Stick) Negative mg/dL (NEG) Urine Blood Large (NEG) Urine Nitrite Negative (NEG) Urine Bilirubin Negative (NEG) Urine Urobilinogen Dipstick 0.2 mg/dL (0.2 mg/dL) Urine Leukocyte Esterase Moderate (NEG) Urine RBC Tntc /HPF (0-2) Urine WBC 20-40 /HPF (0-4) Urine Squamous Epithelial Cells Mod /LPF Urine Bacteria Few /HPF (0-FEW) Urine Mucus Mod /LPF Urine Test Negative (NEG) Laboratory Tests 07/01/21 16:35 07/02/21 07:00 Laboratory Tests 07/01/21 16:15 07/02/21 07:00 ECHOCARDIOGRAM ECHOCARDIOGRAM <Conclusion> The left ventricular systolic function is normal. The Ejection Fraction is 55-60%. There is normal LV segmental wall motion. Transmitral Doppler flow pattern is Grade II-pseudonormal filling dynamics. Doppler and Color Flow revealed trace tricuspid regurgitation. The PA pressure was estimated at 27 mmHg. There is no evidence of significant pericardial effusion. DATE: 03/09/19 0920 ASSESSMENT/PLAN ASSESSMENT/PLAN 1. Arrhythmia: no evidence of AFIB. noted with sinus tachycardia. reactive. 2. Sepsis with UTI and chronic martini 3. Progressive MS; advanced 4. Neurogenic bladder s/p suprapubic cath 5. Factor V Leiden on Eliquis 7. Hypokalemia, hypomagnesemia; replaced 8. Chronic coccyx,sacral wounds Recommendations 1. Continue antibiotic therapy. 2. Monitor rhythm 3. No further cardiac workup. ARIS CARLSON MD 07/02/21 1721: CARDIAC CONSULT ASSESSMENT/PLAN ASSESSMENT/PLAN Patient seen and examined. Agree with LINE WALKER's assessment and plan. 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
[2021-07-02] MEDS: BUDESONIDE 0.5 MG/2 ML NEBU. NEB SCH ×2 (11:15→21:00)
--- NOTE | 2021-07-02 11:23 | EKG ---
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
[2021-07-02] MEDS ORDERED: HYOSCYAMINE 0.125 MG TAB.RAPDIS PO PRN (11:30)
--- NOTE | 2021-07-02 11:30 | PN ---
DATE: 07/02/2021 SUBJECTIVE: The patient is resting, slightly propped up in bed, in no apparent distress. She is definitely more awake, alert. On questioning her, she denied any complaint. PHYSICAL EXAMINATION: GENERAL: When I examined her, she was pale, cachectic, but no jaundice or cyanosis. No lymphadenopathy, no thyromegaly, no jugular venous distention. No limb edema. VITAL SIGNS: Her heart rate was 125, blood pressure was 128/81, temperature was 97.5, respiratory rate was 14 and oxygen saturation was 93% on room air. HEAD, EYES, EARS, NOSE AND THROAT: Normocephalic, atraumatic. NECK: Supple. HEART: Showed normal first and second heart sounds. No gallop, rub or murmur. CHEST: Clear to auscultation, no crepitation or rhonchi. ABDOMEN: Distended, soft with suprapubic catheter in place and diverting colostomy. NEUROLOGIC: She is definitely more awake, alert. All cranial nerves intact. 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 She has also a large sacral decubitus ulcer and bilateral gluteal decubitus ulcer. Her intake over the last 24 hours and output incompletely recorded. LABORATORY DATA: Her lab work this morning showed her white cell count is down to 10,500, hemoglobin 9, hematocrit 28, MCV 75 and platelet count 348,000. Her chemistry showed a serum sodium 144, potassium 3.6, chloride 110, bicarbonate 24, anion gap of 10, BUN 9, creatinine 0.4. Estimated GFR was 171 mL per minute. Her glucose was 88, calcium was 8.6. ASSESSMENT: In summary, this is yet again another episode of sepsis likely due to urinary tract infection versus healthcare-associated pneumonia. I will get records from [facility]. Meanwhile, we will continue with IV antibiotic. Await the evaluation by the Infectious Disease and the core mounter. I will also order a 12-lead EKG. JUJU/SUMANTH DR: Clari TID: [id number]
--- NOTE | 2021-07-02 11:41 | PDOC2 ---
CONSULT Date of Consult Date of Consult DATE: 07/02/21 TIME: 11:31 Reason for Consult Reason for Consult: Sepsis Referring Physician Referring Physician: Dr Frankel Identification/Chief Complaint Chief Complaint 45-year-old [place] female well kn own to our service from previous admissions with a history of MS and contractures presents to the emergency department with elevated heart rate yesterday. She was also hypoxic. Pt was released recently from [facility]. WBC 18.5,Lactic acid of 1.3. Last month she had bacteremia and was treated with iv antibiotics.She denies any chest pain or shortness of breath at this time and denies any abdominal pain. She nods yes or no to questioning but is unable to provide further history. She was started on iv vanc and zosyn. During her last hospitalization patient was transferred to outside facility for for urology procedure due to nephrolithiasis Past Medical History Cardiovascular: No pertinent hx Pulmonary: COPD, Pneumonia CENTRAL NERVOUS SYSTEM: Other GI: Diverticulosis, GERD Heme/Onc: Anemia NOS, Other Psych: Anxiety, Depression Musculoskeletal: Other Infectious disease: Other Renal/: UTI, Other Endocrine: No pertinent hx Past Surgical History Past Surgical History: Other Family History Family History: Other Social History Quit ALCOHOL: none Drugs: None Lives: [place]Way Current Problem List Problem List Problems Medical Problems: (1) Sepsis Status: Acute Current Medications Current Medications Current Medications Acetaminophen (Tylenol Supp) [address] ; Start 07/01/21 at 14:00; Stop 07/01/21 at 14:01; Status DC Sodium Chloride 1,000 ml @ 1,000 mls/hr 1X ONCE IV Last administered on 07/01/21at 17:00; Start 07/01/21 at 14:00; Stop 07/01/21 at 14:59; Status DC Sodium Chloride 1,000 ml @ 1,000 mls/hr 1X ONCE IV Last administered on 07/01/21at 17:00; Start 07/01/21 at 14:00; Stop 07/01/21 at 14:59; Status DC Piperacillin Sod/ Tazobactam Sod (Zosyn Per Pharmacy) 1 each PRN DAILY PRN MC SEE COMMENTS; Start 07/01/21 at 13:45 Vancomycin HCl (Vanco Per Pharmacy) 1 each PRN DAILY PRN MC SEE COMMENTS Last administered on 07/02/21at 09:51; Start 07/01/21 at 13:45 Vancomycin HCl 1.5 gm/Sodium Chloride 500 ml @ 250 mls/hr 1X ONCE IV Last administered on 07/01/21at 18:28; Start 07/01/21 at 14:00; Stop 07/01/21 at 15:59; Status DC Piperacillin Sod/ Tazobactam Sod 3.375 gm/Sodium Chloride 50 ml @ 100 mls/hr Q6HRS IV Last administered on 07/02/21at 06:04; Start 07/01/21 at 18:00 Ondansetron HCl (Zofran) 4 mg PRN Q8HRS PRN IVP NAUSEA/VOMITING; Start 07/01/21 at 18:00; Stop 07/02/21 at 17:59 Acetaminophen (Tylenol) 650 mg PRN Q4HRS PRN PO FEVER > 100.3'F; Start 07/01/21 at 18:00; Stop 07/02/21 at 17:59 Vancomycin HCl 1 gm/Sodium Chloride 250 ml @ 250 mls/hr Q12H IV Last administered on 07/02/21at 09:26; Start 07/02/21 at 06:30 Vancomycin HCl (Vancomycin Trough Level) 1 each 1X ONCE MC ; Start 07/03/21 at 06:00; Stop 07/03/21 at 06:01 Acetaminophen (Tylenol) 650 mg PRN Q4HRS PRN PO MILD PAIN 1-3; Start 07/02/21 at 10:45 Alprazolam (Xanax) 0.5 mg HS PO ; Start 07/02/21 at 21:00 Apixaban (Eliquis) 5 mg BID PO ; Start 07/02/21 at 11:00 Budesonide (Pulmicort) 0.5 mg BID NEB ; Start 07/02/21 at 11:15 Cetirizine HCl (ZyrTEC) 10 mg DAILY PO ; Start 07/02/21 at 12:00 Vitamin D (Vitamin D3) 1,000 unit DAILY PO ; Start 07/02/21 at 12:00 Dantrolene Sodium (Dantrium) 75 mg QID PO ; Start 07/02/21 at 13:00 Duloxetine HCl (Cymbalta) 30 mg DAILY PO ; Start 07/02/21 at 12:00 Famotidine (Pepcid) 20 mg BID PO ; Start 07/02/21 at 12:00 Ferrous Sulfate (Feosol) 325 mg DAILY08 PO ; Start 07/02/21 at 12:00 Gentamicin Sulfate (Garamycin) 1 darion BID TP ; Start 07/02/21 at 12:00 Guaifenesin (Mucinex) 600 mg BID PO ; Start 07/02/21 at 12:00 Midodrine (Proamatine) 7.5 mg TID@0700,1300,1800 PO ; Start 07/02/21 at 13:00 Mirabegron (Myrbetriq) 50 mg DAILY PO ; Start 07/02/21 at 12:00 Oxybutynin Chloride (Ditropan) 5 mg TID PO ; Start 07/02/21 at 14:00 Polyethylene Glycol (miraLAX PACKET) 17 gm PRN DAILY PRN PO CONSTIPATION; Start 07/02/21 at 10:45 Potassium Chloride (Klor-Con) 40 meq DAILY08 PO ; Start 07/02/21 at 12:00 Sennosides (Senna) 8.6 mg DAILY PO ; Start 07/02/21 at 12:00 Zinc Sulfate (Orazinc) 220 mg DAILY PO ; Start 07/02/21 at 12:00 Ascorbic Acid (Vitamin C) 500 mg DAILY PO ; Start 07/02/21 at 12:00 Baclofen (Lioresal) 20 mg QID PO ; Start 07/02/21 at 13:00 Non-Formulary Medication (Collagenase Clostridium Hist. (Santyl Ointment)) 1 darion BID TP ; Start 07/02/21 at 21:00; Status UNV Hyoscyamine (Anaspaz) 0.125 mg PRN Q4HRS PRN PO bladder spasms; Start 07/02/21 at 11:30 Non-Formulary Medication (Hypochlorous Acid/Sodium Chlor (I-Lid Cleanser Carrington)) 40 ml BID TP ; Start 07/02/21 at 21:00; Status UNV Lactobacillus Rhamnosus (Culturelle) 1 cap BID PO ; Start 07/02/21 at 12:00 Non-Formulary Medication (Lidocaine (Anecream)) 1 darion BID TP ; Start 07/02/21 at 21:00; Status UNV Nystatin (Nystop) 1 darion TID TP ; Start 07/02/21 at 14:00 Non-Formulary Medication ( Vit #49/Iron Fum/Fa (Mini Tablet)) 1 each DAILY PO ; Start 07/03/21 at 09:00; Status UNV Info (Anti-Coagulation Monitoring By Pharmacy) 1 each PRN DAILY PRN MC PER PROTOCOL; Start 07/02/21 at 11:00 Active Scripts Active Reported Anecream (Lidocaine) 5 Gm Cream..g. 1 Darion TP BID 30 Days I-Lid Cleanser Carrington (Hypochlorous Acid/Sodium Chlor) 40 Ml Carrington 40 Ml TP BID Gentamicin Sulfate 30 Gm Oint...g. 1 Darion TP BID apply to affected area(s) Budesonide 0.5 Mg/2 Ml Ampul.neb 0.5 Mg IH BID Acetaminophen 325 Mg Tablet 650 Mg PO PRN Q4HRS PRN Orazinc (Zinc Sulfate) 50 Mg Capsule 220 Mg PO DAILY Vitamin D3 (Vitamin D) 25 Mcg Tablet 25 Mcg PO DAILY 1,000 UNITS = 25 MCG Oxycodone HCl 5 Mg Tablet 5 Mg PO PRN Q4HRS PRN Cetirizine Hcl 10 Mg Tablet 1 Tab PO DAILY Nystatin 1 Each Powder.ea. 1 Each MC TID Midodrine Hcl 5 Mg Tablet 7.5 Mg PO TID Hold is SBP > 140 Mucinex (Guaifenesin) 600 Mg Tablet.er 600 Mg PO BID Hyoscyamine Sulfate 0.125 Mg Tablet 0.125 Mg PO Q4HRS PRN Mini Tablet ( Vit #49/Iron Fum/Fa) 1 Each Tablet 1 Each PO CALIXTO LY Vitamin C (Ascorbic Acid) 500 Mg Capsule.er 500 Mg PO DAILY Santyl Ointment (Collagenase) 30 Gm Oint...g. 1 Darion TP BID 30 Days Oxycodone HCl ER (Oxycodone HCl) 20 Mg Tab.er.12h 20 Mg PO BID Miralax (Polyethylene Glycol 3350) 17 Gm Powd.pack 1 Pkt PO PRN DAILY PRN Myrbetriq (Mirabegron) 50 Mg Tab.er.24h 50 Mg PO DAILY Dantrolene Sodium 25 Mg Capsule 75 Mg PO QID Acidophilus (Lactobacillus Acidophilus) 1 Each Tab.chew 1 Cap PO BID Sennosides 8.6 Mg Tablet 8.6 Mg PO DAILY Potassium Chloride (Potassium Chloride) 20 Meq Tablet.er 40 Meq PO DAILY Oxybutynin Chloride 5 Mg Tablet 5 Mg PO TID Ferrous Sulfate 325 Mg Tablet 325 Mg PO DAILY Famotidine 20 Mg Tablet 20 Mg PO BID Cymbalta (Duloxetine Hcl) 30 Mg Capsule.dr 30 Mg PO DAILY Baclofen 20 Mg Tablet 20 Mg PO QID Eliquis (Apixaban) 5 Mg Tablet 5 Mg PO BID Alprazolam 0.5 Mg Tablet 1 Tab PO HS Allergies Allergies: Coded Allergies: I S O L A T I O N *CONTACT* (Verified Allergy, Unknown, 05/20/20) mrsa/ESBL No Known Medication Allergies (Verified Allergy, Unknown, 04/28/17) ROS Review of System neg except for above Physical Exam Physical Exam GENERAL: Alert, oriented x 3, lying in bed comfortably in position in no acute distress. HEENT: Normocephalic, atraumatic. Anicteric. Oral mucosa dry LUNGS: Decreased breath sound at the bases no wheezing. HEART: S1, S2. ABDOMEN: Soft, nontender, nondistended. SPC in place changed per nursing staff EXTREMITIES: No edema or cyanosis, multiple contractures CENTRAL NERVOUS SYSTEM: Alert, oriented x 3, quadriplegia present PSYCHIATRIC: calm. Derm no generalized rash, multiple pressure wounds involving the buttocks sacrum and trochanter. Refer to wound care notes for further description (pictures reviewed ) LINES: looks clean. Vitals VITALS Vital Signs Date Time Temp Pulse Resp B/P (MAP) Pulse Ox O2 Delivery O2 Flow Rate FiO2 07/02/21 09:21 97.5 125 14 128/81 (97) 93 Room Air 97.5 07/01/21 20:36 2.0 Labs Labs Laboratory Tests Test 07/01/21 16:15 07/01/21 16:35 07/01/21 20:30 07/02/21 07:00 Sodium Level 143 mmol/L (136-145) 144 mmol/L (136-145) Potassium Level 4.6 mmol/L (3.5-5.1) 3.6 mmol/L (3.5-5.1) Chloride Level 106 mmol/L (98-107) 110 mmol/L (98-107) Carbon Dioxide Level 26 mmol/L (21-32) 24 mmol/L (21-32) Anion Gap 11 (6-14) 10 (6-14) Blood Urea Nitrogen 9 mg/dL (7-20) 9 mg/dL (7-20) Creatinine 0.4 mg/dL (0.6-1.0) 0.4 mg/dL (0.6-1.0) Estimated GFR (Cockcroft-Gault) 171.1 171.1 Glucose Level 114 mg/dL (70-99) 88 mg/dL (70-99) Calcium Level 9.3 mg/dL (8.5-10.1) 8.6 mg/dL (8.5-10.1) Total Bilirubin 0.3 mg/dL (0.2-1.0) Direct Bilirubin 0.1 mg/dL (0.0-0.2) Aspartate Amino Transf (AST/SGOT) 13 U/L (15-37) Alanine Aminotransferase (ALT/SGPT) 13 U/L (14-59) Alkaline Phosphatase 66 U/L (46-116) Total Protein 6.9 g/dL (6.4-8.2) Albumin 2.8 g/dL (3.4-5.0) White Blood Count 18.5 x10^3/uL (4.0-11.0) 10.5 x10^3/uL (4.0-11.0) Red Blood Count 4.74 x10^6/uL (3.50-5.40) 3.82 x10^6/uL (3.50-5.40) Hemoglobin 11.3 g/dL (12.0-15.5) 9.2 g/dL (12.0-15.5) Hematocrit 34.8 % (36.0-47.0) 28.4 % (36.0-47.0) Mean Corpuscular Volume 73 fL (79-100) 75 fL (79-100) Mean Corpuscular Hemoglobin 24 pg (25-35) 24 pg (25-35) Mean Corpuscular Hemoglobin Concent 33 g/dL (31-37) 32 g/dL (31-37) Red Cell Distribution Width 20.1 % (11.5-14.5) 20.4 % (11.5-14.5) Platelet Count 516 x10^3/uL (140-400) 348 x10^3/uL (140-400) Neutrophils (%) (Auto) 84 % (31-73) 80 % (31-73) Lymphocytes (%) (Auto) 9 % (24-48) 11 % (24-48) Monocytes (%) (Auto) 7 % (0-9) 8 % (0-9) Eosinophils (%) (Auto) 0 % (0-3) 1 % (0-3) Basophils (%) (Auto) 1 % (0-3) 1 % (0-3) Neutrophils # (Auto) 15.6 x10^3/uL (1.8-7.7) 8.4 x10^3/uL (1.8-7.7) Lymphocytes # (Auto) 1.6 x10^3/uL (1.0-4.8) 1.2 x10^3/uL (1.0-4.8) Monocytes # (Auto) 1.3 x10^3/uL (0.0-1.1) 0.8 x10^3/uL (0.0-1.1) Eosinophils # (Auto) 0.0 x10^3/uL (0.0-0.7) 0.1 x10^3/uL (0.0-0.7) Basophils # (Auto) 0.1 x10^3/uL (0.0-0.2) 0.1 x10^3/uL (0.0-0.2) Segmented Neutrophils % 83 % (35-66) Band Neutrophils % 2 % (0-9) Lymphocytes % 7 % (24-48) Monocytes % 7 % (0-10) Eosinophils % 1 % (0-5) Platelet Estimate Increased (ADEQUATE) Microcytosis Mod Macrocytosis Slight Lactic Acid Level 1.3 mmol/L (0.4-2.0) Urine Collection Type U cath Urine Color Fern Urine Clarity Cloudy Urine pH 7.5 (<5.0-8.0) Urine Specific [place] 1.025 (1.000-1.030) Urine Protein 100 mg/dL (NEG-TRACE) Urine Glucose (UA) Negative mg/dL (NEG) Urine Ketones (Stick) Negative mg/dL (NEG) Urine Blood Large (NEG) Urine Nitrite Negative (NEG) Urine Bilirubin Negative (NEG) Urine Urobilinogen Dipstick 0.2 mg/dL (0.2 mg/dL) Urine Leukocyte Esterase Moderate (NEG) Urine RBC Tntc /HPF (0-2) Urine WBC 20-40 /HPF (0-4) Urine Squamous Epithelial Cells Mod /LPF Urine Bacteria Few /HPF (0-FEW) Urine Mucus Mod /LPF Urine Test Negative (NEG) Laboratory Tests Test 07/01/21 16:15 07/01/21 16:35 07/01/21 20:30 07/02/21 07:00 Sodium Level 143 mmol/L (136-145) 144 mmol/L (136-145) Potassium Level 4.6 mmol/L (3.5-5.1) 3.6 mmol/L (3.5-5.1) Chloride Level 106 mmol/L (98-107) 110 mmol/L (98-107) Carbon Dioxide Level 26 mmol/L (21-32) 24 mmol/L (21-32) Anion Gap 11 (6-14) 10 (6-14) Blood Urea Nitrogen 9 mg/dL (7-20) 9 mg/dL (7-20) Creatinine 0.4 mg/dL (0.6-1.0) 0.4 mg/dL (0.6-1.0) Estimated GFR (Cockcroft-Gault) 171.1 171.1 Glucose Level 114 mg/dL (70-99) 88 mg/dL (70-99) Calcium Level 9.3 mg/dL (8.5-10.1) 8.6 mg/dL (8.5-10.1) Total Bilirubin 0.3 mg/dL (0.2-1.0) Direct Bilirubin 0.1 mg/dL (0.0-0.2) Aspartate Amino Transf (AST/SGOT) 13 U/L (15-37) Alanine Aminotransferase (ALT/SGPT) 13 U/L (14-59) Alkaline Phosphatase 66 U/L (46-116) Total Protein 6.9 g/dL (6.4-8.2) Albumin 2.8 g/dL (3.4-5.0) White Blood Count 18.5 x10^3/uL (4.0-11.0) 10.5 x10^3/uL (4.0-11.0) Red Blood Count 4.74 x10^6/uL (3.50-5.40) 3.82 x10^6/uL (3.50-5.40) Hemoglobin 11.3 g/dL (12.0-15.5) 9.2 g/dL (12.0-15.5) Hematocrit 34.8 % (36.0-47.0) 28.4 % (36.0-47.0) Mean Corpuscular Volume 73 fL (79-100) 75 fL (79-100) Mean Corpuscular Hemoglobin 24 pg (25-35) 24 pg (25-35) Mean Corpuscular Hemoglobin Concent 33 g/dL (31-37) 32 g/dL (31-37) Red Cell Distribution Width 20.1 % (11.5-14.5) 20.4 % (11.5-14.5) Platelet Count 516 x10^3/uL (140-400) 348 x10^3/uL (140-400) Neutrophils (%) (Auto) 84 % (31-73) 80 % (31-73) Lymphocytes (%) (Auto) 9 % (24-48) 11 % (24-48) Monocytes (%) (Auto) 7 % (0-9) 8 % (0-9) Eosinophils (%) (Auto) 0 % (0-3) 1 % (0-3) Basophils (%) (Auto) 1 % (0-3) 1 % (0-3) Neutrophils # (Auto) 15.6 x10^3/uL (1.8-7.7) 8.4 x10^3/uL (1.8-7.7) Lymphocytes # (Auto) 1.6 x10^3/uL (1.0-4.8) 1.2 x10^3/uL (1.0-4.8) Monocytes # (Auto) 1.3 x10^3/uL (0.0-1.1) 0.8 x10^3/uL (0.0-1.1) Eosinophils # (Auto) 0.0 x10^3/uL (0.0-0.7) 0.1 x10^3/uL (0.0-0.7) Basophils # (Auto) 0.1 x10^3/uL (0.0-0.2) 0.1 x10^3/uL (0.0-0.2) Segmented Neutrophils % 83 % (35-66) Band Neutrophils % 2 % (0-9) Lymphocytes % 7 % (24-48) Monocytes % 7 % (0-10) Eosinophils % 1 % (0-5) Platelet Estimate Increased (ADEQUATE) Microcytosis Mod Macrocytosis Slight Lactic Acid Level 1.3 mmol/L (0.4-2.0) Urine Collection Type U cath Urine Color Fern Urine Clarity Cloudy Urine pH 7.5 (<5.0-8.0) Urine Specific [place] 1.025 (1.000-1.030) Urine Protein 100 mg/dL (NEG-TRACE) Urine Glucose (UA) Negative mg/dL (NEG) Urine Ketones (Stick) Negative mg/dL (NEG) Urine Blood Large (NEG) Urine Nitrite Negative (NEG) Urine Bilirubin Negative (NEG) Urine Urobilinogen Dipstick 0.2 mg/dL (0.2 mg/dL) Urine Leukocyte Esterase Moderate (NEG) Urine RBC Tntc /HPF (0-2) Urine WBC 20-40 /HPF (0-4) Urine Squamous Epithelial Cells Mod /LPF Urine Bacteria Few /HPF (0-FEW) Urine Mucus Mod /LPF Urine Test Negative (NEG) Assessment/Plan Assessment/Plan Sepsis Tachycardia Hypoxia History of recurrent bacteremia Leukocytosis Altered blood pressure wounds involving sacrum left buttocks and bilateral tr ochanters chronic 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 Frankel for consulting us to participate in this patient care NAIN THOMAS MD Jul 02, 2021 11:41
[2021-07-02] MEDS: CETIRIZINE HCL 10 MG TABLET. PO SCH (12:00)
[2021-07-02] MEDS: CHOLECALCIFEROL (VITAMIN D3) 1,000 UNIT TABLET PO SCH (12:00)
[2021-07-02] MEDS: FAMOTIDINE 20 MG TABLET. PO SCH ×2 (12:00→20:33)
[2021-07-02] MEDS: ZINC SULFATE 220 MG CAPSULE. PO SCH (12:00)
[2021-07-02] MEDS: DULoxetine HCL 30 MG CAPSULE.DR PO SCH (12:00)
[2021-07-02] MEDS: ASCORBIC ACID 500 MG TABLET PO SCH (12:00)
[2021-07-02] MEDS: FERROUS SULFATE 325 MG TABLET. PO SCH (12:00)
[2021-07-02] MEDS: POTASSIUM CHLORIDE 20 MEQ TABLET.ER. PO SCH (12:00)
[2021-07-02] MEDS: MIRABEGRON 25 MG TAB.ER.24H PO SCH (12:00)
[2021-07-02] MEDS: SENNOSIDES 8.6 MG TABLET PO SCH (12:00)
[2021-07-02] MEDS: LACTOBACILLUS RHAMNOSUS GG 1 CAPSULE. PO SCH ×2 (12:00→20:33)
--- NOTE | 2021-07-02 12:07 | NUR ---
SW following. Discussed with RN. 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 JORGE requested COVID test for return to facility. Pt on IV abx. SW will continue to follow.
[2021-07-02] MEDS: GENTAMICIN 0.1% TOPICAL OINTMENT 15GM TUBE. TP SCH ×2 (12:34→20:38)
[2021-07-02] MEDS: DANTROLENE SODIUM 25 MG CAPSULE PO SCH ×3 (13:00→20:34)
[2021-07-02] MEDS: BACLOFEN 10 MG TABLET. PO SCH ×3 (13:00→20:34)
[2021-07-02] MEDS: MIDODRINE 5 MG TABLET PO SCH ×2 (13:00→18:00)
--- NOTE | 2021-07-02 13:37 | HP ---
ADMIT DATE: 07/02/2021 HISTORY OF PRESENT ILLNESS: The patient is a 45-year-old female patient, a resident at [facility] in [place] who was noted yesterday to be hypoxic, tachycardic, febrile. Her heart rate was up to 140. She was also hypoxic with an oxygen saturation 85%, therefore I recommended that the patient be transferred to [facility] Emergency Room for further evaluation and treatment. She was actually seen in the Emergency Room and was found to have marked leukocytosis, white cell count of 18,500. Her urinalysis showed the patient has 20-40 wbc's and few bacteria. The patient was admitted recently to [facility] where she was treated for healthcare-associated pneumonia as well as urinary tract infection and underwent diverting colostomy. She was in fact still getting oral Augmentin as well as Zithromax. She was given IV fluid. She received about 2 liters normal saline and started on vancomycin as well as Zosyn after obtaining the blood and urine for culture and sensitivity. PAST MEDICAL HISTORY: Significant for longstanding progressive multiple sclerosis with functional quadriplegia, fixed flexion contracture of all four limbs. She is known to have factor V Leiden, for which she is on Xarelto. The patient herself has never had any DVT or pulmonary emboli; however, her father and daughter positive for factor V Leiden and both have deep vein thrombosis. She is known to have chronic obstructive pulmonary disease. She is an ex-smoker, although she quit smoking recently. She has severe protein calorie malnutrition, neurogenic bladder requiring suprapubic catheter and neurogenic bowel requiring diverting colostomy. She has recurrent urinary tract infection and multiple admissions for that, stage 4 sacrococcygeal decubitus ulcer, status post debridement recently at [facility]. She has also bilateral trochanteric decubitus ulcer. She has staghorn calculi, for which she underwent surgical treatment and stone retrieval from her urinary bladder. She also had Port-A-Cath placed successfully; however, it was complicated by pneumothorax requiring chest tube placement, eventually was removed. PAST SURGICAL HISTORY: Significant for debridement of her coccygeal decubitus ulcer, Port-A-Cath placement and removal, suprapubic catheter placement, chest tube placement as well as multiple surgeries including cystoscopy and retrograde ureteroscopy and stent deployment, percutaneous nephrostomy tube placement and retrieval of the stones in the urinary bladder, and most recently diverting colostomy. ALLERGIES: She has no known drug allergies. FAMILY HISTORY: Positive for factor V Leiden in her father and daughter. SOCIAL HISTORY: She is single, currently residing at [facility] in [place]. She is an ex-smoker, does not smoke anymore. She does not drink alcohol or recreational drugs. She has a son and a daughter. MEDICATIONS: She is currently on following medications: She is on multivitamin with mineral 1 tablet once a day, ascorbic acid 500 mg once a day, zinc sulfate 220 mg once a day, senna 1 tablet once a day, potassium chloride 40 mEq once a day, Myrbetriq 50 mg daily, ferrous sulfate 325 mg once a day, duloxetine 30 mg once a day, vitamin D 1000 units once a day, cetirizine 10 mg daily, vancomycin as per pharmacy, lidocaine cream apply topically twice a day. She is on lactobacillus rhamnosus 1 capsule twice a day. She is on hypochlorous 40 mL twice a day. She is on collagenase apply topically to the wound twice a day, guaifenesin 600 mg twice a day, gentamicin sulfate applied topically twice a day, famotidine 20 mg twice a day, budesonide 0.5 mg by nebulizer twice a day, alprazolam 0.5 mg at bedtime. She is also on midodrine 7.5 mg 3 times a day, oxybutynin chloride or Ditropan 5 mg 3 times a day, baclofen 20 mg 4 times a day, dantrolene 75 mg 4 times a day. She is also on hyoscyamine 0.125 mg every 4 hours for bladder spasm, polyethylene glycol 17 grams daily, acetaminophen 650 mg every 4 hours as needed. PHYSICAL EXAMINATION: GENERAL: On arrival to the emergency room, the patient was pale, cachectic with a body mass index only 19.8 kilograms per square meter. VITAL SIGNS: Her heart rate on arrival was 127, blood pressure was 126/91, temperature was 98.9, respiratory rate 24, and oxygen saturation was 97% on 4 liters of oxygen. HEAD, EYES, EARS, NOSE AND THROAT: Normocephalic, atraumatic. NECK: Supple. HEART: Normal first and second heart sounds, no gallop or murmur. CHEST: Clear to auscultation. No crepitation or rhonchi. ABDOMEN: Scaphoid, soft with suprapubic catheter and diverting colostomy in place. There is no guarding or rigidity. No organomegaly. All hernial orifice intact. Bowel sounds normal. NEUROLOGIC: She apparently was lethargic, arousable. All cranial nerves intact. She has functional quadriplegia with fixed flexion contraction of all four limbs. She has marked muscle wasting and weakness. She has stage 4 sacral decubitus ulcer and bilateral gluteal decubitus ulcers. She has neurogenic bladder and bowel, for which she has a suprapubic catheter placed as well as diverting colostomy. LABORATORY DATA: Her lab work on arrival showed a white cell count of 18,500, hemoglobin 11, hematocrit 34, MCV 73 and platelet count 516,000. Her chemistry showed a serum sodium 143, potassium 4.6, chloride 106, bicarbonate 26, anion gap of 11, BUN 9, creatinine 0.4. Estimated GFR was 171 mL per minute. Her glucose was 140, calcium was 9.3. Total bilirubin, AST, ALT, alkaline phosphatase were normal. Total protein 6.9, albumin was 2.8. Urinalysis showed the urine was cloudy with a pH of 7.5, specific gravity of 1.025. There is large amount of protein. The urine was negative for glucose, ketones, large amount of blood, negative for nitrite and bilirubin, moderate amount of leukocyte esterase, too numerous to count rbc's, 20-40 wbc's and few bacteria. Her urine test was negative. Her chest x-ray showed elevation of the right hemidiaphragm with right lower lobe compression atelectasis or interstitial infiltrate. She underwent right internal jugular catheter with the tip overlying expected location of the superior cavoatrial junction. There is no pneumothorax. Stable elevation of the right hemidiaphragm and right middle and lower lobe airspace disease. PLAN: Continue with IV antibiotic. Continue with all other medications. I did consult the infectious disease specialist as well as the housekeeping associate as she is known to have episode of paroxysmal atrial fibrillation with rapid ventricular response before. She is already on apixaban 500 mg twice a day for her factor V Leiden mutation. JUJU/MARC/VANNA DR: Clari TID: [id number]
[2021-07-02] MEDS: NYSTATIN TOPICAL POWDER 15GM BOTTLE. TP SCH ×2 (14:00→20:38)
[2021-07-02] MEDS: OXYBUTYNIN CHLORIDE 5 MG TABLET PO SCH ×2 (14:00→20:33)
[2021-07-02 14:53] VITALS: BP 126/80
--- NOTE | 2021-07-02 15:34 | NUR ---
Wound Care: Pt is in pain and would not consent to wound evaluation today. Will reassess on 07/03/21
[2021-07-02] MEDS: ACETAMINOPHEN 325 MG TABLET. PO PRN (18:13)
[2021-07-02 19:00] VITALS: BP 120/80
[2021-07-02] MEDS: ALPRAZolam 0.5 MG TABLET PO SCH (20:33)
[2021-07-02] MEDS: LIDOCAINE 2% TOPICAL JELLY 30GM TUBE. TP SCH (20:40)
[2021-07-02] MEDS ORDERED: HYPOCHLOROUS ACID TP SCH (21:00)
[2021-07-02] MEDS ORDERED: SODIUM CHLOR TP SCH (21:00)
[2021-07-02] MEDS ORDERED: COLLAGENASE 250 UNIT/GM TOPICAL OINTMENT 30GM TUBE. TP SCH (21:00)
[2021-07-02 23:00] VITALS: BP 122/79
[2021-07-03 03:00] VITALS: BP 125/83
[2021-07-03] MEDS: PIPERACILLIN/TAZOBACTAM 3.375 GM in IV NORMAL SALINE 50ML 50 ML IV SCH ×4 (04:56→23:57)
[2021-07-03] MEDS: MIDODRINE 5 MG TABLET PO SCH ×3 (05:37→17:53)
[2021-07-03 07:00] VITALS: BP 141/75
--- NOTE | 2021-07-03 07:12 | NUR ---
Patient up most of the night, just continues to call out for staff and turns on her touch call light, when staff goes in she would say, "I'm a quadriplegic." Staff acknowledges her statement and asked if she needed anything else, she would replied, "No", as soon as staff steps out she would call again and want staff to turn off her fan, after staff leaves out she would call out again, just wanting staff to stay with her, this nurse, PCT and other staff took turn answering her call light and spending a little bit of time with her, reassuring her that she was safe, colostomy bag keeps coming off of her, replaced again with two piece and re-enforce with mefix tape, colostomy seems to be okay and intact this morning.
--- NOTE | 2021-07-03 08:59 | PDOC ---
KHADIJAH DUTTA DEPUTY BAILIFF 07/03/21 0859: CARDIO Progress Notes Date and Time Date of Service 07/03/2021 Time of Evaluation 0850 Subjective Subjective: No Chest Pain, No shortness of breath, No Palpitations Vitals Vitals Vital Signs Date Time Temp Pulse Resp B/P (MAP) Pulse Ox O2 Delivery O2 Flow Rate FiO2 07/03/21 07:00 98.1 89 18 141/75 (97) 95 Room Air 98.1 07/02/21 08:00 2.0 Weight Weight [ ] Input and Output Intake and Output Intake and Output 07/03/21 07:00 Intake Total 480 ml Output Total 850 ml Balance -370 ml Intake Oral 480 ml Output Urine Total 850 ml # Bowel Movements 3 Microbiology Micro Microbiology 07/01/21 Urine Culture - Final, Complete 07/01/21 Blood Culture - Preliminary, Resulted NO GROWTH AFTER 1 DAY Physical Exam HEENT: Neck Supple W Full Motion Chest: Symmetric LUNGS: Other (diminished bases) Heart: RRR (SR/ST) Abdomen: Soft N/T Extremities: No Calf Tenderness Neurology: alert, follow commands Assessment Assessment 1. Arrhythmia: no evidence of AFIB. x1 brief episode of PAT otherwise SR/ST 2. Sepsis with UTI and chronic martini 3. Progressive MS; advanced 4. Neurogenic bladder s/p suprapubic cath 5. Factor V Leiden on Eliquis 6. Chronic coccyx,sacral wounds 7. Microcytic hypochromic anemia: per PCP. Hgb 9.2 Recommendations 1. Continue antibiotic therapy. 2. Unless [place] for SVT is high no need for rate controlling agent. Treat extracardiac issues. No further cardiac workup. Justicifation of Admission Dx: Justifications for Admission: Justification of Admission Dx: Yes Sepsis: Infection ARIS CARLSON MD 07/04/21 0544: CARDIO Progress Notes Assessment Assessment Patient seen and examined. Agree with ASSISTANT CHIEF TRAIN DISPATCHER's assessment and plan. Sinus tachycardia physiologic secondary to sepsis No evidence of atrial fibrillation noted on telemetry Continue intravenous antibiotics for UTI/sepsis Continue Eliquis for factor V Leiden deficiency KHADIJAH DUTTA DEPUTY BAILIFF Jul 03, 2021 08:59 ARIS CARLSON MD Jul 04, 2021 05:44
[2021-07-03] MEDS: NYSTATIN TOPICAL POWDER 15GM BOTTLE. TP SCH ×3 (09:00→21:59)
[2021-07-03] MEDS: GENTAMICIN 0.1% TOPICAL OINTMENT 15GM TUBE. TP SCH ×2 (09:00→22:00)
[2021-07-03] MEDS: LIDOCAINE 2% TOPICAL JELLY 30GM TUBE. TP SCH ×2 (09:00→22:00)
[2021-07-03 09:21] LABS: BASO # 0.1 x10^3/uL (0.0-0.2); BASO % 1 % (0-3); EOS # 0.2 x10^3/uL (0.0-0.7); EOS % 2 % (0-3); HEMATOCRIT 26.8 % (36.0-47.0); HEMOGLOBIN 8.6 g/dL (12.0-15.5); LYMPH # 0.8 x10^3/uL (1.0-4.8); LYMPH % 10 % (24-48); MEAN CORPUSCULAR HEMOGLOBIN 24 pg (25-35); MEAN CORPUSCULAR HGB CONC 32 g/dL (31-37); MEAN CORPUSCULAR VOLUME 75 fL (79-100); MONO # 0.4 x10^3/uL (0.0-1.1); MONO % 6 % (0-9); NEUT # 6.5 x10^3/uL (1.8-7.7); NEUT % 82 % (31-73); PLATELET COUNT 276 x10^3/uL (140-400); RED BLOOD COUNT 3.58 x10^6/uL (3.50-5.40); RED CELL DISTRIBUTION WIDTH 20.9 % (11.5-14.5)
[2021-07-03] MEDS: ANTI-COAG MONITOR BY PHARMACY. MC PRN (09:21)
[2021-07-03 09:49] LABS: VANC TR 14.5 mcg/mL (10.0-20.0)
[2021-07-03] MEDS: VANCOMYCIN 1 GM in IV NORMAL SALINE 250ML 250 ML IV SCH (09:49)
[2021-07-03] MEDS: SENNOSIDES 8.6 MG TABLET PO SCH (09:50)
[2021-07-03] MEDS: FERROUS SULFATE 325 MG TABLET. PO SCH (09:50)
[2021-07-03] MEDS: OXYBUTYNIN CHLORIDE 5 MG TABLET PO SCH ×3 (09:51→21:59)
[2021-07-03] MEDS: CETIRIZINE HCL 10 MG TABLET. PO SCH (09:51)
[2021-07-03] MEDS: LACTOBACILLUS RHAMNOSUS GG 1 CAPSULE. PO SCH ×2 (09:51→21:58)
[2021-07-03] MEDS: ZINC SULFATE 220 MG CAPSULE. PO SCH (09:51)
[2021-07-03] MEDS: PRENATAL MULTIVITAMIN TABLET. PO SCH (09:51)
[2021-07-03] MEDS: DANTROLENE SODIUM 25 MG CAPSULE PO SCH ×4 (09:51→21:58)
[2021-07-03] MEDS: POTASSIUM CHLORIDE 20 MEQ TABLET.ER. PO SCH (09:52)
--- NOTE | 2021-07-03 09:52 | PDOC ---
Infectious Disease Note Subjective: Subjective pt sleepy has intermitent chills otherwise says feels ok Vital Signs: Vital Signs Vital Signs Date Time Temp Pulse Resp B/P (MAP) Pulse Ox O2 Delivery O2 Flow Rate FiO2 07/03/21 07:00 98.1 89 18 141/75 (97) 95 Room Air 98.1 07/02/21 08:00 2.0 Physical Exam: PHYSICAL EXAM GENERAL: Alert, oriented x 3, lying in bed comfortably in position in no acute distress. HEENT: Normocephalic, atraumatic. Anicteric. Oral mucosa dry NECK RT IJ Present LUNGS: Decreased breath sound at the bases no wheezing. HEART: S1, S2. ABDOMEN: Soft, nontender, nondistended. SPC in place changed per nursing staff EXTREMITIES: No edema or cyanosis, multiple contractures CENTRAL NERVOUS SYSTEM: Alert, oriented x 3, quadriplegia present PSYCHIATRIC: calm. Derm no generalized rash, multiple pressure wounds involving the buttocks sacrum and trochanter. Refer to wound care notes for further description (pictures reviewed ) LINES: looks clean. Medications: Inpatient Meds: Medications reviewed. Labs: Lab Laboratory Tests Test 07/03/21 09:15 White Blood Count 8.0 x10^3/uL (4.0-11.0) Red Blood Count 3.58 x10^6/uL (3.50-5.40) Hemoglobin 8.6 g/dL (12.0-15.5) Hematocrit 26.8 % (36.0-47.0) Mean Corpuscular Volume 75 fL (79-100) Mean Corpuscular Hemoglobin 24 pg (25-35) Mean Corpuscular Hemoglobin Concent 32 g/dL (31-37) Red Cell Distribution Width 20.9 % (11.5-14.5) Platelet Count 276 x10^3/uL (140-400) Neutrophils (%) (Auto) 82 % (31-73) Lymphocytes (%) (Auto) 10 % (24-48) Monocytes (%) (Auto) 6 % (0-9) Eosinophils (%) (Auto) 2 % (0-3) Basophils (%) (Auto) 1 % (0-3) Neutrophils # (Auto) 6.5 x10^3/uL (1.8-7.7) Lymphocytes # (Auto) 0.8 x10^3/uL (1.0-4.8) Monocytes # (Auto) 0.4 x10^3/uL (0.0-1.1) Eosinophils # (Auto) 0.2 x10^3/uL (0.0-0.7) Basophils # (Auto) 0.1 x10^3/uL (0.0-0.2) Objective: Assessment: Sepsis Gram-positive bacteremia present on admission 1 out of 4 bottles Tachycardia Hypoxia History of recurrent bacteremia Leukocytosis Chronic nonhealing wounds involving sacrum ,buttocks and bilateral trochanters chronic 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 History of MDRO Factor V Leyden deficiency History of DVT and PE Protein calorie malnutrition Generalized debility Nephrolithiasis Recent hosp [facility] on po antibiotics before admission,records are pending at this time Plan: Plan of Care Follow-up GPC in blood culture Continue IV Vanco and Zosyn Monitor renal functions closely; pharmacy to assist with Vanco dosing Monitor labs and cultures Wound care as directed Supportive care Awaiting records for review from outside facility ,still pending wound team following per rn Maintain aspiration precaution Offload Discussed with nursing staff NAIN THOMAS MD Jul 03, 2021 09:52
[2021-07-03] MEDS: FAMOTIDINE 20 MG TABLET. PO SCH ×2 (09:53→21:59)
[2021-07-03] MEDS: APIXABAN 5 MG TABLET. PO SCH ×2 (09:53→21:59)
[2021-07-03] MEDS: CHOLECALCIFEROL (VITAMIN D3) 1,000 UNIT TABLET PO SCH (09:53)
[2021-07-03] MEDS: ASCORBIC ACID 500 MG TABLET PO SCH (09:53)
[2021-07-03] MEDS: DULoxetine HCL 30 MG CAPSULE.DR PO SCH (09:53)
[2021-07-03] MEDS: BACLOFEN 10 MG TABLET. PO SCH ×4 (09:54→21:58)
[2021-07-03] MEDS: MIRABEGRON 25 MG TAB.ER.24H PO SCH (09:59)
[2021-07-03 10:02] LABS: ALBUMIN 2.1 g/dL (3.4-5.0); ALBUMIN/GLOBULIN RATIO 0.6 (1.0-1.7); CALCIUM 7.7 mg/dL (8.5-10.1); CREATININE 0.3 mg/dL (0.6-1.0); GFR 238.5; TOTAL BILIRUBIN 0.2 mg/dL (0.2-1.0); TOTAL PROTEIN 5.8 g/dL (6.4-8.2)
[2021-07-03 10:05] LABS: POTASSIUM 2.9 mmol/L (3.5-5.1)
[2021-07-03] MEDS ORDERED: POTASSIUM BICARB 20 MEQ EFFERVESCENT TABLET. PO ONE ×2 (10:15→12:00)
--- NOTE | 2021-07-03 10:23 | PN ---
DATE: 07/03/2021 SUBJECTIVE: The patient is resting, slightly propped up in bed, in no apparent respiratory distress. She is awake, alert, complaining of chills, but no fever. Denied any pain. She apparently has not slept well last night. PHYSICAL EXAMINATION: GENERAL: When I examined her, she looked pale, cachectic, but no jaundice, cyanosis or thyromegaly. No jugular venous distention. No limb edema. VITAL SIGNS: Her heart rate was 89, blood pressure is 141/75, temperature was 98, respiratory rate was 18 and oxygen saturation was 95% on room air. Rest of the clinical exam stable. Her intake was 2550, no output recorded. LABORATORY DATA: Her white cell count is down to 8000, hemoglobin 8.6, hematocrit 26.8, MCV 75 and platelet count of 276,000. Serum sodium was 144, potassium 3.6, chloride 110, bicarbonate 24, anion gap of 10, BUN 9, creatinine 0.4. Estimated GFR was 171. Her glucose was 88 and calcium was 8.6. Her urine culture has grown 3 or more organisms isolated. Her blood cultures are so far negative. ASSESSMENT: 1. Sepsis, likely due to urinary tract infection versus healthcare-associated pneumonia. She was discharged from [facility] recently. Other medical problems include: A. Progressive multiple sclerosis with functional quadriplegia and neurogenic bladder and bowel. She is status post suprapubic catheter placement as well as diverting colostomy. B. Arrhythmias; however, no evidence of atrial fibrillation. C. Factor V Leiden for which she is on Eliquis, although she herself has no other history of DVT or PE. D. Chronic obstructive pulmonary disease; however, the patient stopped smoking recently. E. Large stage IV sacral decubitus ulcer, for which wound care team was consulted. JUJU/BHARAT DR: Clari TID: [id number]
[2021-07-03] MEDS: VANCOMYCIN PER PHARMACY MC PRN (10:29)
--- NOTE | 2021-07-03 10:43 | NUR ---
Pharmacy Vancomycin Dosing Note S: Consulted to monitor and dose vancomycin started 07/01/21. O: LENNY EVERETT is a 45 year old F with Sepsis. Other Antibiotics: zosyn 3.375 gm LABS: Last BUN: 7 Last Creatinine: 0.3 Creatinine Clearance: > 100 mL/min Last WBC: 8 Last Procalcitonin: -- Tmax (past 24 hours): 98.1 Microbiology: 07/01: blood NGTD (after 1 day) URINE: Multiple isolates likely colonization or contamination I/O: 480/850 Drug Levels: Last Trough level: 14.5 (Trough drawn 15 hours after dose) on 07/03/21 at 0915 Last dose given 07/03/21 at 0949 Vancomycin Dosing: Dosing Weight: Actual Target Trough: 15-20 A: Based on: trough and trough timing P: 1. Decrease Vancomycin to 750 mg IV q12h 2. Follow up Trough level in 5 days if cont 3. Pharmacy will continue to monitor, follow and adjust therapy as needed. Zara Ortiz RPH, 07/03/21 [id number]
[2021-07-03 11:00] VITALS: BP 131/93
[2021-07-03] MEDS ORDERED: MORPHINE SULFATE 2 MG/ML INJ. IVP ONE (11:30)
[2021-07-03] MEDS: POTASSIUM CL 20MEQ D5-0.45NACL 1,000 ML IV SCH (12:38)
[2021-07-03 14:53] VITALS: BP 124/76
[2021-07-03] MEDS: KETOROLAC 30 MG/ML VIAL. IVP PRN (16:30)
--- NOTE | 2021-07-03 17:19 | NUR ---
Wound/Ostomy Care Wound Type/Assessment: Wound care consult for bilateral ischium and sacrum PUs stage 4, left trochanter unstageable PU. See wound assessment for further details. Pt known to wound care from previous admissions. No other wounds noted on head to toe skin assessment. All wound cleansed and measured. Suprapubic catheter noted to be leaking, pt states that she currently has one that is too small and needs a bigger size ballon, staff registered nurse notified. Ostomy bag change, ostomy ring and hydrocolloids used to reinforced bag as pt has some ridges that kept bag leaking. Pt currently on a P500 bed but would benefit from a Clinitron bed, will put order in. Treatment Recommendations/Plan: Cleanse all wounds and pat dry. Bilateral ischium, sacrum and left trochanter: apply honey alginate (extra left in room) and cover with foam, change every 2-3 days and prn if soiled. Suprapubic catheter site: cover with split abd or sanitary pad to help with urine leaking around catheter and change frequently until able to get bigger size catheter for pt. Colostomy: apply ostomy powder to periwound and use skin prep to crush, then use ostomy ring to build site and abdominal folds, use convex 1 piece ostomy appliance. Education provided: pt educated on turning q2h, informed that new bed will be order for her Offloading surface/device: currently on P500 bed, clinitron bed ordered, pillows, purple wedge and heel medix boots to offload Recommended Referrals/Tests: n/a Discharge Recommendations for dressings: same as above, wc will re-eval on 07/09
[2021-07-03] MEDS: ACETAMINOPHEN 325 MG TABLET. PO PRN (17:52)
[2021-07-03 19:00] VITALS: BP 119/74
[2021-07-03 19:32] LABS: CALCIUM 7.2 mg/dL (8.5-10.1); CREATININE 0.5 mg/dL (0.6-1.0); GFR 132.2; POTASSIUM 3.7 mmol/L (3.5-5.1)
[2021-07-03] MEDS: BUDESONIDE 0.5 MG/2 ML NEBU. NEB SCH (20:00)
[2021-07-03] MEDS: VANCOMYCIN 750 MG in IV NORMAL SALINE 250ML 250 ML IV SCH (21:58)
[2021-07-03] MEDS: ALPRAZolam 0.5 MG TABLET PO SCH (21:58)
[2021-07-03 23:43] VITALS: BP 111/71
[2021-07-04 03:00] VITALS: BP 109/69
[2021-07-04] MEDS: POTASSIUM CL 20MEQ D5-0.45NACL 1,000 ML IV SCH ×2 (05:04→22:34)
[2021-07-04] MEDS: PIPERACILLIN/TAZOBACTAM 3.375 GM in IV NORMAL SALINE 50ML 50 ML IV SCH ×3 (05:05→17:57)
[2021-07-04 07:00] VITALS: BP 104/64
[2021-07-04] MEDS: MIDODRINE 5 MG TABLET PO SCH ×3 (07:00→18:00)
--- NOTE | 2021-07-04 08:26 | PDOC ---
Infectious Disease Note Subjective: Subjective pt sleepy but arousable,says feels ok Vital Signs: Vital Signs Vital Signs Date Time Temp Pulse Resp B/P (MAP) Pulse Ox O2 Delivery O2 Flow Rate FiO2 07/04/21 03:00 97.3 63 18 109/69 (82) 99 Room Air 97.3 Physical Exam: PHYSICAL EXAM GENERAL: Alert, oriented x 3, lying in bed comfortably in position in no acute distress. HEENT: Normocephalic, atraumatic. Anicteric. Oral mucosa dry NECK RT IJ Present LUNGS: Decreased breath sound at the bases no wheezing. HEART: S1, S2. ABDOMEN: Soft, nontender, nondistended. SPC in place changed per nursing staff EXTREMITIES: No edema or cyanosis, multiple contractures CENTRAL NERVOUS SYSTEM: Alert, oriented x 3, quadriplegia present PSYCHIATRIC: calm. Derm no generalized rash, multiple pressure wounds involving the buttocks sacrum and trochanter. Refer to wound care notes for further description (pictures reviewed ) LINES: looks clean. Medications: Inpatient Meds: Medications reviewed. Labs: Lab Laboratory Tests Test 07/03/21 09:15 07/03/21 18:00 07/04/21 07:58 White Blood Count 8.0 x10^3/uL (4.0-11.0) Red Blood Count 3.58 x10^6/uL (3.50-5.40) Hemoglobin 8.6 g/dL (12.0-15.5) Hematocrit 26.8 % (36.0-47.0) Mean Corpuscular Volume 75 fL (79-100) Mean Corpuscular Hemoglobin 24 pg (25-35) Mean Corpuscular Hemoglobin Concent 32 g/dL (31-37) Red Cell Distribution Width 20.9 % (11.5-14.5) Platelet Count 276 x10^3/uL (140-400) Neutrophils (%) (Auto) 82 % (31-73) Lymphocytes (%) (Auto) 10 % (24-48) Monocytes (%) (Auto) 6 % (0-9) Eosinophils (%) (Auto) 2 % (0-3) Basophils (%) (Auto) 1 % (0-3) Neutrophils # (Auto) 6.5 x10^3/uL (1.8-7.7) Lymphocytes # (Auto) 0.8 x10^3/uL (1.0-4.8) Monocytes # (Auto) 0.4 x10^3/uL (0.0-1.1) Eosinophils # (Auto) 0.2 x10^3/uL (0.0-0.7) Basophils # (Auto) 0.1 x10^3/uL (0.0-0.2) Sodium Level 145 mmol/L (136-145) 146 mmol/L (136-145) Potassium Level 2.9 mmol/L (3.5-5.1) 3.7 mmol/L (3.5-5.1) Chloride Level 112 mmol/L (98-107) 113 mmol/L (98-107) Carbon Dioxide Level 22 mmol/L (21-32) 23 mmol/L (21-32) Anion Gap 11 (6-14) 10 (6-14) Blood Urea Nitrogen 7 mg/dL (7-20) 6 mg/dL (7-20) Creatinine 0.3 mg/dL (0.6-1.0) 0.5 mg/dL (0.6-1.0) Estimated GFR (Cockcroft-Gault) 238.5 132.2 BUN/Creatinine Ratio 23 (6-20) Glucose Level 57 mg/dL (70-99) 119 mg/dL (70-99) Calcium Level 7.7 mg/dL (8.5-10.1) 7.2 mg/dL (8.5-10.1) Magnesium Level 1.7 mg/dL (1.8-2.4) Total Bilirubin 0.2 mg/dL (0.2-1.0) Aspartate Amino Transf (AST/SGOT) 11 U/L (15-37) Alanine Aminotransferase (ALT/SGPT) 11 U/L (14-59) Alkaline Phosphatase 46 U/L (46-116) Total Protein 5.8 g/dL (6.4-8.2) Albumin 2.1 g/dL (3.4-5.0) Albumin/Globulin Ratio 0.6 (1.0-1.7) Vancomycin Level Trough 14.5 mcg/mL (10.0-20.0) Vancomycin Last Dose Date 07/02/21 Vancomycin Last Dose Time 1830 Glucose (Fingerstick) 86 mg/dL (70-99) Objective: Assessment: Sepsis Gram-positive bacteremia present on admission 1 out of 4 bottles Tachycardia Hypoxia History of recurrent bacteremia Leukocytosis Chronic nonhealing wounds involving sacrum ,buttocks and bilateral trochanters chronic 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 History of MDRO 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
[2021-07-04] MEDS: LIDOCAINE 2% TOPICAL JELLY 30GM TUBE. TP SCH ×2 (09:00→21:00)
[2021-07-04] MEDS: SENNOSIDES 8.6 MG TABLET PO SCH (09:00)
[2021-07-04] MEDS: VANCOMYCIN 750 MG in IV NORMAL SALINE 250ML 250 ML IV SCH ×2 (09:00→22:16)
[2021-07-04] MEDS: NYSTATIN TOPICAL POWDER 15GM BOTTLE. TP SCH ×3 (09:00→21:00)
[2021-07-04] MEDS: GENTAMICIN 0.1% TOPICAL OINTMENT 15GM TUBE. TP SCH ×2 (09:00→21:00)
[2021-07-04] MEDS: VANCOMYCIN PER PHARMACY MC PRN ×2 (09:53→09:58)
[2021-07-04] MEDS: BUDESONIDE 0.5 MG/2 ML NEBU. NEB SCH ×3 (10:22→20:15)
[2021-07-04 10:23] LABS: BASE EXCESS ABG -2 mmol/L (-3-3); HCO3 ABG 21 mmol/L (21-28); PCO2 ABG 32 mmHg (35-46); PO2 ABG 65 mmHg (75-108); SAT O2 ABG 93 % (92-99)
[2021-07-04 10:25] LABS: FIO2 ABG 21
[2021-07-04 11:00] VITALS: BP 115/73
[2021-07-04 11:04] LABS: CALCIUM 8.6 mg/dL (8.5-10.1); CREATININE 0.5 mg/dL (0.6-1.0); GFR 132.2
[2021-07-04 11:09] LABS: BASO % 1 % (0-3); EOS # 0.3 x10^3/uL (0.0-0.7); EOS % 4 % (0-3); HEMATOCRIT 35.2 % (36.0-47.0); LYMPH # 1.1 x10^3/uL (1.0-4.8); LYMPH % 13 % (24-48); MEAN CORPUSCULAR HEMOGLOBIN 24 pg (25-35); MEAN CORPUSCULAR HGB CONC 31 g/dL (31-37); MEAN CORPUSCULAR VOLUME 77 fL (79-100); MONO # 0.8 x10^3/uL (0.0-1.1); MONO % 9 % (0-9); NEUT % 74 % (31-73); PLATELET COUNT 285 x10^3/uL (140-400); RED BLOOD COUNT 4.59 x10^6/uL (3.50-5.40); RED CELL DISTRIBUTION WIDTH 21.7 % (11.5-14.5); WHITE BLOOD COUNT 8.2 x10^3/uL (4.0-11.0)
[2021-07-04] MEDS: BACLOFEN 10 MG TABLET. PO SCH ×4 (12:42→22:19)
[2021-07-04] MEDS: CHOLECALCIFEROL (VITAMIN D3) 1,000 UNIT TABLET PO SCH (12:42)
[2021-07-04] MEDS: CETIRIZINE HCL 10 MG TABLET. PO SCH (12:42)
[2021-07-04] MEDS: MIRABEGRON 25 MG TAB.ER.24H PO SCH (12:42)
[2021-07-04] MEDS: DANTROLENE SODIUM 25 MG CAPSULE PO SCH ×4 (12:42→22:18)
[2021-07-04] MEDS: FERROUS SULFATE 325 MG TABLET. PO SCH (12:43)
[2021-07-04] MEDS: OXYBUTYNIN CHLORIDE 5 MG TABLET PO SCH ×3 (12:43→22:18)
[2021-07-04] MEDS: APIXABAN 5 MG TABLET. PO SCH ×2 (12:43→22:19)
[2021-07-04] MEDS: DULoxetine HCL 30 MG CAPSULE.DR PO SCH (12:43)
[2021-07-04] MEDS: POTASSIUM CHLORIDE 20 MEQ TABLET.ER. PO SCH (12:43)
[2021-07-04] MEDS: ZINC SULFATE 220 MG CAPSULE. PO SCH (12:43)
[2021-07-04] MEDS: PRENATAL MULTIVITAMIN TABLET. PO SCH (12:43)
[2021-07-04] MEDS: LACTOBACILLUS RHAMNOSUS GG 1 CAPSULE. PO SCH ×2 (12:43→22:18)
[2021-07-04] MEDS: ASCORBIC ACID 500 MG TABLET PO SCH (12:43)
[2021-07-04] MEDS: FAMOTIDINE 20 MG TABLET. PO SCH ×2 (13:23→22:18)
[2021-07-04 15:00] VITALS: BP 128/77
[2021-07-04 19:00] VITALS: BP 123/75
[2021-07-04] MEDS: ALPRAZolam 0.5 MG TABLET PO SCH (22:17)
[2021-07-04] MEDS: KETOROLAC 30 MG/ML VIAL. IVP PRN (22:19)
[2021-07-04 23:00] VITALS: BP 121/74
--- NOTE | 2021-07-05 00:09 | PN ---
DATE: 07/04/2021 SUBJECTIVE: The patient is resting, slightly propped up in bed, very lethargic, but arousable. She has had tramadol yesterday during dressing changes, but no other medication. PHYSICAL EXAMINATION: GENERAL: When I examined her, she was pale, cachectic, but no jaundiced or cyanosed. No thyromegaly. No jugular venous distention. No limb edema. VITAL SIGNS: Her heart rate was 63, blood pressure was 109/69, temperature 97.3, respiratory rate was 18 and oxygen saturation was 99% on room air. HEAD, EYES, EARS, NOSE AND THROAT: Normocephalic, atraumatic. NECK: Supple. HEART: Normal first and second heart sounds, no gallop or murmur. CHEST: Clear to auscultation. No crepitation or rhonchi. ABDOMEN: Distended, soft with a diverting colostomy in the left lower quadrant and suprapubic catheter in place. NEUROLOGIC: She is very lethargic, but arousable. All cranial nerves intact. She has quadriplegia with fixed flexion contraction of all four limbs. She has large sacral and bilateral gluteal decubitus ulcers. Her intake was 480, output was 850. LABORATORY DATA: Today's labs are still pending. As of yesterday, her serum sodium was 146, potassium 3.7, chloride 113, bicarbonate 23, anion gap of 10, BUN 6, creatinine 0.5. Estimated GFR was 132 mL per minute. Her glucose was 119 and calcium was 7.2. ASSESSMENT: 1. Sepsis. 2. Gram-positive bacteremia, present on admission, 11/11 bottles. 3. Acute hypoxic respiratory failure. 4. Chronic nonhealing sacral and bilateral gluteal decubitus ulcers. 5. Advanced multiple sclerosis with quadriplegia and fixed flexion contraction of all four limbs. 6. Factor V Leiden deficiency. 7. Severe protein calorie malnutrition. 8. COPD. 9. Nephrolithiasis. PLAN: To continue with antibiotics in the form of vancomycin and Zosyn. Continue to monitor her lab work and await the results of the identification and sensitivity. JOCELIN/KATHY DR: Clari TID: [id number]
[2021-07-05] MEDS: PIPERACILLIN/TAZOBACTAM 3.375 GM in IV NORMAL SALINE 50ML 50 ML IV SCH ×4 (00:17→17:49)
[2021-07-05] MEDS: POTASSIUM CL 20MEQ D5-0.45NACL 1,000 ML IV SCH (02:00)
[2021-07-05 03:00] VITALS: BP 118/70
[2021-07-05] MEDS: MIDODRINE 5 MG TABLET PO SCH ×3 (07:00→17:51)
--- NOTE | 2021-07-05 07:39 | PDOC ---
Infectious Disease Note Subjective: Subjective pt more alert this morning, Says feels tired still weak and lethargic Vital Signs: Vital Signs Vital Signs Date Time Temp Pulse Resp B/P (MAP) Pulse Ox O2 Delivery O2 Flow Rate FiO2 07/05/21 03:00 97.8 63 16 118/70 (86) 96 Room Air 97.8 Physical Exam: PHYSICAL EXAM GENERAL: Alert, oriented x 3, lying in bed comfortably in position in no acute distress. HEENT: Normocephalic, atraumatic. Anicteric. Oral mucosa dry NECK RT IJ Present LUNGS: Decreased breath sound at the bases no wheezing. HEART: S1, S2. ABDOMEN: Soft, nontender, nondistended. SPC in place changed per nursing staff EXTREMITIES: No edema or cyanosis, multiple contractures CENTRAL NERVOUS SYSTEM: Alert, oriented x 3, quadriplegia present PSYCHIATRIC: calm. Derm no generalized rash, multiple pressure wounds involving the buttocks sacrum and trochanter. Refer to wound care notes for further description (pictures reviewed ) LINES: looks clean. Medications: Inpatient Meds: Medications reviewed. Labs: Lab Laboratory Tests Test 07/04/21 07:58 07/04/21 10:25 07/04/21 10:40 07/04/21 12:03 Glucose (Fingerstick) 86 mg/dL (70-99) 78 mg/dL (70-99) O2 Saturation 93 % (92-99) Arterial Blood pH 7.44 (7.35-7.45) Arterial Blood pCO2 at Patient Temp 32 mmHg (35-46) Arterial Blood pO2 at Patient Temp 65 mmHg (75-108) Arterial Blood HCO3 21 mmol/L (21-28) Arterial Blood Base Excess -2 mmol/L (-3-3) FiO2 21 White Blood Count 8.2 x10^3/uL (4.0-11.0) Red Blood Count 4.59 x10^6/uL (3.50-5.40) Hemoglobin 11.0 g/dL (12.0-15.5) Hematocrit 35.2 % (36.0-47.0) Mean Corpuscular Volume 77 fL (79-100) Mean Corpuscular Hemoglobin 24 pg (25-35) Mean Corpuscular Hemoglobin Concent 31 g/dL (31-37) Red Cell Distribution Width 21.7 % (11.5-14.5) Platelet Count 285 x10^3/uL (140-400) Neutrophils (%) (Auto) 74 % (31-73) Lymphocytes (%) (Auto) 13 % (24-48) Monocytes (%) (Auto) 9 % (0-9) Eosinophils (%) (Auto) 4 % (0-3) Basophils (%) (Auto) 1 % (0-3) Neutrophils # (Auto) 6.0 x10^3/uL (1.8-7.7) Lymphocytes # (Auto) 1.1 x10^3/uL (1.0-4.8) Monocytes # (Auto) 0.8 x10^3/uL (0.0-1.1) Eosinophils # (Auto) 0.3 x10^3/uL (0.0-0.7) Basophils # (Auto) 0.0 x10^3/uL (0.0-0.2) Sodium Level 148 mmol/L (136-145) Potassium Level 4.0 mmol/L (3.5-5.1) Chloride Level 113 mmol/L (98-107) Carbon Dioxide Level 23 mmol/L (21-32) Anion Gap 12 (6-14) Blood Urea Nitrogen 5 mg/dL (7-20) Creatinine 0.5 mg/dL (0.6-1.0) Estimated GFR (Cockcroft-Gault) 132.2 Glucose Level 73 mg/dL (70-99) Calcium Level 8.6 mg/dL (8.5-10.1) Test 07/04/21 17:06 07/04/21 19:33 Glucose (Fingerstick) 122 mg/dL (70-99) 107 mg/dL (70-99) Objective: Assessment: Sepsis Gram-positive bacteremia present on admission 1 out of 4 bottles Hypoxia History of recurrent bacteremia Leukocytosis Chronic nonhealing wounds involving sacrum ,buttocks and bilateral trochanters chronic 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 History of MDRO Factor V Leyden deficiency History of DVT and PE Protein calorie malnutrition Generalized debility Nephrolithiasis Recent hosp [facility] on po antibiotics before admission,records are pending at this time Plan: Plan of Care Follow-up GPC in blood culture,still pending Continue IV Vanco and Zosyn,vanc trough 14 Monitor renal functions closely; pharmacy to assist with Vanco dosing on gent by wound team Monitor labs and cultures Wound care as directed Supportive care Maintain aspiration precaution Offload Discussed with nursing staff NAIN THOMAS MD Jul 05, 2021 07:39
[2021-07-05] MEDS: FERROUS SULFATE 325 MG TABLET. PO SCH (08:00)
--- NOTE | 2021-07-05 08:58 | PN ---
DATE: 07/05/2021 SUBJECTIVE: The patient is resting, slightly propped up in bed, in her Clinitron bed, in no apparent distress. She is definitely more awake, alert. On questioning her, she denied any complaint. Nursing staff did not voice any concerns, stated that she has an uneventful night. She continued to be afebrile. Her white cell count came down nicely from 18,500 to 8200. Her urine culture has grown 3 or more organisms isolated results consistent with colonization and/or contamination. Her blood cultures are so far negative except one of them has grown gram-positive cocci in clusters in 1/4 bottles, anaerobic bottle. She is now on IV vancomycin as well as piperacillin/tazobactam. PHYSICAL EXAMINATION: GENERAL: When I examined her, she was pale, somewhat cachectic, but no jaundice, cyanosis or thyromegaly. No jugular venous distention. No limb edema. VITAL SIGNS: Her heart rate was 63, blood pressure is 118/70, temperature 97.8, respiratory rate was 16 and oxygen saturation was 96% on room air. The rest of clinical exam stable. Her intake was 3000, output was 800. LABORATORY DATA: As of yesterday showed a white cell count of 8200, hemoglobin 11, hematocrit 35, MCV 77 and platelet count 285,000. Her chemistry showed a serum sodium 148, potassium 4, chloride 113. ASSESSMENT: 1. Sepsis. 2. Gram-positive bacteremia, present on admission, 1/4 bottles. 3. Acute hypoxic respiratory failure, improved. 4. Chronic nonhealing sacral and bilateral gluteal decubitus ulcer. 5. Advanced multiple sclerosis with quadriplegia and fixed flexion contraction of all four limbs. 6. Factor V Leiden deficiency. 7. Severe protein calorie malnutrition. 8. Chronic obstructive pulmonary disease. 9. Nephrolithiasis. 10. Hypernatremia. PLAN: My plan is to change her IV fluid to D5W. Meanwhile, to continue with all her other antibiotic and other medications. JJUU/BHARAT DR: Clari TID: [id number]
[2021-07-05] MEDS: NYSTATIN TOPICAL POWDER 15GM BOTTLE. TP SCH ×3 (09:00→21:00)
[2021-07-05 09:14] LABS: VANC TR 25.1 mcg/mL (10.0-20.0)
[2021-07-05] MEDS: ASCORBIC ACID 500 MG TABLET PO SCH (09:23)
[2021-07-05] MEDS: CHOLECALCIFEROL (VITAMIN D3) 1,000 UNIT TABLET PO SCH (09:25)
[2021-07-05] MEDS: FAMOTIDINE 20 MG TABLET. PO SCH ×2 (09:25→21:26)
[2021-07-05] MEDS: CETIRIZINE HCL 10 MG TABLET. PO SCH (09:25)
[2021-07-05] MEDS: DULoxetine HCL 30 MG CAPSULE.DR PO SCH (09:26)
[2021-07-05] MEDS: APIXABAN 5 MG TABLET. PO SCH ×2 (09:27→21:26)
[2021-07-05] MEDS: DANTROLENE SODIUM 25 MG CAPSULE PO SCH ×4 (09:29→21:26)
[2021-07-05] MEDS: MIRABEGRON 25 MG TAB.ER.24H PO SCH (09:30)
[2021-07-05] MEDS: LACTOBACILLUS RHAMNOSUS GG 1 CAPSULE. PO SCH ×2 (09:30→21:26)
[2021-07-05] MEDS: PRENATAL MULTIVITAMIN TABLET. PO SCH (09:33)
[2021-07-05] MEDS: BACLOFEN 10 MG TABLET. PO SCH ×4 (09:33→21:27)
[2021-07-05] MEDS: ZINC SULFATE 220 MG CAPSULE. PO SCH (09:34)
[2021-07-05] MEDS: POTASSIUM CHLORIDE 20 MEQ TABLET.ER. PO SCH (09:36)
[2021-07-05] MEDS: OXYBUTYNIN CHLORIDE 5 MG TABLET PO SCH ×3 (09:37→21:27)
[2021-07-05] MEDS: SENNOSIDES 8.6 MG TABLET PO SCH (09:37)
[2021-07-05] MEDS: VANCOMYCIN 750 MG in IV NORMAL SALINE 250ML 250 ML IV SCH (10:06)
[2021-07-05 10:10] VITALS: BP 136/76
[2021-07-05 11:00] VITALS: BP 140/84
[2021-07-05] MEDS: IV DEXTROSE 5% 1,000 ML IV SCH ×2 (12:00→22:38)
[2021-07-05] MEDS: VANCOMYCIN PER PHARMACY MC PRN (12:39)
--- NOTE | 2021-07-05 14:00 | NUR ---
Pharmacy Vancomycin Dosing Note S:Consulted to monitor and dose vancomycin started 07/01/21. O:LENNY EVERETT is a 45 year old F with Sepsis Empiric . Height: 5 feet, 8 inches Weight: 60.8 kg [place] Body Weight: 63.90 Adjusted Body Weight: 62.66 Dosing Weight: Actual Other Antibiotics: zosyn 3.375 gm LABS: Last BUN: 6 Last Creatinine: 0.5 Creatinine Clearance: > 100 mL/min mL/min Last WBC: 8 Last Procalcitonin: -- Tmax (past 24 hours): 98.1 Microbiology: 07/01: blood GPC IN 1/4 BOTTLES URINE: Multiple isolates likely colonization or contamination I/O: 3047/800 Drug Levels: Last Trough level: 25 (07/05/21 0845 Last dose given 07/03/21 at 2158 Vancomycin Dosing: Loading Dose: 1500 mg x1 Dosing Weight: Actual Target Trough: 15-20 A: Based on: RANDOM LEVEL P: 1. Change Vancomycin 1000 mg IV q24h 2. Follow up Trough level on 07/08/21 at 0930 3. Pharmacy will continue to monitor, follow and adjust therapy as needed. MIKAYLA LAUREANO RPH, 07/05/21 1400
[2021-07-05] MEDS: LIDOCAINE 2% TOPICAL JELLY 30GM TUBE. TP SCH ×2 (14:22→21:00)
[2021-07-05] MEDS: GENTAMICIN 0.1% TOPICAL OINTMENT 15GM TUBE. TP SCH ×2 (14:23→21:00)
[2021-07-05 15:00] VITALS: BP 140/86
[2021-07-05] MEDS: ANTI-COAG MONITOR BY PHARMACY. MC PRN (16:42)
[2021-07-05 19:00] VITALS: BP 143/84
[2021-07-05] MEDS: BUDESONIDE 0.5 MG/2 ML NEBU. NEB SCH (19:40)
[2021-07-05] MEDS: ALPRAZolam 0.5 MG TABLET PO SCH (21:26)
[2021-07-05] MEDS: KETOROLAC 30 MG/ML VIAL. IVP PRN (21:27)
[2021-07-05 23:06] VITALS: BP 129/91
[2021-07-06] MEDS: PIPERACILLIN/TAZOBACTAM 3.375 GM in IV NORMAL SALINE 50ML 50 ML IV SCH ×5 (00:19→23:48)
[2021-07-06 03:15] VITALS: BP 132/87
[2021-07-06 06:53] VITALS: BP 160/98
[2021-07-06] MEDS: MIDODRINE 5 MG TABLET PO SCH ×3 (07:00→17:45)
[2021-07-06 07:18] LABS: CALCIUM 8.9 mg/dL (8.5-10.1); CREATININE 0.5 mg/dL (0.6-1.0); GFR 132.2
--- NOTE | 2021-07-06 07:29 | PDOC ---
Infectious Disease Note Subjective: Subjective pt feels better Currently on room air Vital Signs: Vital Signs Vital Signs Date Time Temp Pulse Resp B/P (MAP) Pulse Ox O2 Delivery O2 Flow Rate FiO2 07/06/21 06:53 97.6 67 18 160/98 (118) 99 Room Air 97.6 07/05/21 20:00 2.0 Physical Exam: PHYSICAL EXAM GENERAL: Alert, oriented x 3, lying in bed comfortably in position in no acute distress. HEENT: Normocephalic, atraumatic. Anicteric. Oral mucosa dry NECK RT IJ Present LUNGS: Decreased breath sound at the bases no wheezing. HEART: S1, S2. ABDOMEN: Soft, nontender, nondistended. SPC in place changed per nursing staff EXTREMITIES: No edema or cyanosis, multiple contractures CENTRAL NERVOUS SYSTEM: Alert, oriented x 3, quadriplegia present PSYCHIATRIC: calm. Derm no generalized rash, multiple pressure wounds involving the buttocks sacrum and trochanter. Refer to wound care notes for further description (pictures reviewed ) LINES: looks clean. Medications: Inpatient Meds: Medications reviewed. Labs: Lab Laboratory Tests Test 07/05/21 08:45 07/05/21 08:50 07/05/21 11:34 07/05/21 17:12 Vancomycin Level Trough 25.1 mcg/mL (10.0-20.0) Vancomycin Last Dose Date 07/04/21 Vancomycin Last Dose Time 2100 Glucose (Fingerstick) 76 mg/dL (70-99) 96 mg/dL (70-99) 80 mg/dL (70-99) Test 07/05/21 20:07 07/06/21 06:00 Glucose (Fingerstick) 79 mg/dL (70-99) Sodium Level 144 mmol/L (136-145) Potassium Level 4.0 mmol/L (3.5-5.1) Chloride Level 110 mmol/L (98-107) Carbon Dioxide Level 23 mmol/L (21-32) Anion Gap 11 (6-14) Blood Urea Nitrogen 3 mg/dL (7-20) Creatinine 0.5 mg/dL (0.6-1.0) Estimated GFR (Cockcroft-Gault) 132.2 Glucose Level 79 mg/dL (70-99) Calcium Level 8.9 mg/dL (8.5-10.1) Objective: Assessment: Sepsis Coag neg staph bacteremia present on admission 1 out of 4 bottleslikely contaminant Hypoxia History of recurrent bacteremia Leukocytosis Chronic nonhealing wounds involving sacrum ,buttocks and bilateral trochanters chronic 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 History of MDRO 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
[2021-07-06] MEDS: BUDESONIDE 0.5 MG/2 ML NEBU. NEB SCH ×2 (07:43→20:35)
[2021-07-06] MEDS: SENNOSIDES 8.6 MG TABLET PO SCH (09:00)
[2021-07-06] MEDS: LACTOBACILLUS RHAMNOSUS GG 1 CAPSULE. PO SCH ×3 (09:35→21:25)
[2021-07-06] MEDS: PRENATAL MULTIVITAMIN TABLET. PO SCH (09:35)
[2021-07-06] MEDS: MIRABEGRON 25 MG TAB.ER.24H PO SCH (09:35)
[2021-07-06] MEDS: APIXABAN 5 MG TABLET. PO SCH ×2 (09:35→21:25)
[2021-07-06] MEDS: FERROUS SULFATE 325 MG TABLET. PO SCH (09:35)
[2021-07-06] MEDS: OXYBUTYNIN CHLORIDE 5 MG TABLET PO SCH ×3 (09:36→21:25)
[2021-07-06] MEDS: CETIRIZINE HCL 10 MG TABLET. PO SCH (09:36)
[2021-07-06] MEDS: DANTROLENE SODIUM 25 MG CAPSULE PO SCH ×5 (09:36→21:25)
[2021-07-06] MEDS: CHOLECALCIFEROL (VITAMIN D3) 1,000 UNIT TABLET PO SCH (09:36)
[2021-07-06] MEDS: POTASSIUM CHLORIDE 20 MEQ TABLET.ER. PO SCH (09:36)
[2021-07-06] MEDS: FAMOTIDINE 20 MG TABLET. PO SCH ×2 (09:36→21:25)
[2021-07-06] MEDS: ZINC SULFATE 220 MG CAPSULE. PO SCH (09:36)
[2021-07-06] MEDS: ASCORBIC ACID 500 MG TABLET PO SCH (09:36)
[2021-07-06] MEDS: LIDOCAINE 2% TOPICAL JELLY 30GM TUBE. TP SCH ×2 (09:37→22:01)
[2021-07-06] MEDS: BACLOFEN 10 MG TABLET. PO SCH ×5 (09:37→21:25)
[2021-07-06] MEDS: NYSTATIN TOPICAL POWDER 15GM BOTTLE. TP SCH ×3 (09:37→22:01)
[2021-07-06] MEDS: GENTAMICIN 0.1% TOPICAL OINTMENT 15GM TUBE. TP SCH ×2 (09:37→21:00)
[2021-07-06] MEDS: DULoxetine HCL 30 MG CAPSULE.DR PO SCH (09:37)
[2021-07-06] MEDS: IV DEXTROSE 5% 1,000 ML IV SCH (09:47)
--- NOTE | 2021-07-06 09:52 | PN ---
DATE: 07/06/2021 SUBJECTIVE: The patient is resting slightly propped up in bed, in no apparent distress, awake, alert. On questioning her, she denied any complaint. The nursing staff did not voice any concerns, stated that she had an uneventful night. PHYSICAL EXAMINATION: GENERAL: When I examined her, she was pale, cachectic, but no jaundice, cyanosis or thyromegaly. No jugular venous distention. No limb edema. VITAL SIGNS: Her heart rate was 67, blood pressure was 160/98, temperature was 97.6, respiratory rate was 18 and oxygen saturation was 99%. The rest of clinical exam is stable and has not really changed. Her intake over the last 24 hours was 500, output was 300. LABORATORY DATA: As of this morning, her serum sodium was 144, potassium 4, chloride 110, bicarbonate 23, anion gap of 11, BUN 3, creatinine 0.5. Estimated GFR was 132 mL per minute. Her glucose was 79 and calcium was 8.9. Her CBC is still pending at the time of this dictation. ASSESSMENT: 1. Sepsis. 2. Coagulase-negative Staph bacteremia, present on admission, 1 out of 4, likely contaminant. 3. Acute hypoxic respiratory failure, resolved. 4. 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 5. 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 6. Factor V Leiden deficiency. 7. Severe protein calorie malnutrition. 8. Chronic obstructive pulmonary disease. 9. Nephrolithiasis. 10. Hypernatremia that has resolved. PLAN: 1. To continue with IV Zosyn. 2. Continue with her medication. 3. Her vancomycin was discontinued. LOW DR: Clari TID: [id number]
[2021-07-06] MEDS ORDERED: VANCOMYCIN 1 GM in IV NORMAL SALINE 250ML 250 ML IV SCH (10:00)
[2021-07-06 11:00] VITALS: BP 187/94
[2021-07-06 15:00] VITALS: BP 147/92
[2021-07-06] MEDS: ANTI-COAG MONITOR BY PHARMACY. MC PRN ×2 (15:57→16:42)
[2021-07-06 19:00] VITALS: BP 152/89
[2021-07-06] MEDS: ALPRAZolam 0.5 MG TABLET PO SCH (21:25)
[2021-07-06] MEDS: KETOROLAC 30 MG/ML VIAL. IVP PRN (21:26)
[2021-07-06 23:00] VITALS: BP 157/94
[2021-07-07] MEDS: IV DEXTROSE 5% 1,000 ML IV SCH ×2 (00:11→14:18)
[2021-07-07 03:10] VITALS: BP 121/85
[2021-07-07 05:55] LABS: HEMATOCRIT 41.9 % (36.0-47.0); HEMOGLOBIN 13.5 g/dL (12.0-15.5); RED BLOOD COUNT 5.67 x10^6/uL (3.50-5.40); RED CELL DISTRIBUTION WIDTH 21.9 % (11.5-14.5); WHITE BLOOD COUNT 6.5 x10^3/uL (4.0-11.0)
[2021-07-07] MEDS: PIPERACILLIN/TAZOBACTAM 3.375 GM in IV NORMAL SALINE 50ML 50 ML IV SCH ×2 (05:59→12:14)
[2021-07-07 06:13] LABS: CALCIUM 8.8 mg/dL (8.5-10.1); CREATININE 0.6 mg/dL (0.6-1.0); GFR 107.2; POTASSIUM 3.9 mmol/L (3.5-5.1)
[2021-07-07 06:31] VITALS: BP 125/90
[2021-07-07] MEDS: MIDODRINE 5 MG TABLET PO SCH ×2 (07:00→13:00)
[2021-07-07] MEDS: POTASSIUM CHLORIDE 20 MEQ TABLET.ER. PO SCH ×2 (08:00→10:31)
--- NOTE | 2021-07-07 08:16 | PDOC ---
Infectious Disease Note Subjective Subjective pt awake, nodes Currently on room air ROS ROS no n/v/d/fever Vital Sign Vital Signs Vital Signs Date Time Temp Pulse Resp B/P (MAP) Pulse Ox O2 Delivery O2 Flow Rate FiO2 07/07/21 06:31 98.1 113 18 125/90 (102) 95 Room Air 98.1 Physical Exam PHYSICAL EXAM GENERAL: Alert, oriented x 3, lying in bed comfortably in position in no acute distress. HEENT: Normocephalic, atraumatic. Anicteric. Oral mucosa dry NECK RT IJ Present LUNGS: Decreased breath sound at the bases no wheezing. HEART: S1, S2. ABDOMEN: Soft, nontender, nondistended. SPC in place changed per nursing staff EXTREMITIES: No edema or cyanosis, multiple contractures CENTRAL NERVOUS SYSTEM: Alert, oriented x 3, quadriplegia present PSYCHIATRIC: calm. Derm no generalized rash, multiple pressure wounds involving the buttocks sacrum and trochanter. Refer to wound care notes for further description (pictures reviewed ) LINES: looks clean. Labs Lab Laboratory Tests Test 07/06/21 12:43 07/06/21 18:25 07/06/21 20:27 07/07/21 05:30 Glucose (Fingerstick) 95 mg/dL (70-99) 87 mg/dL (70-99) 90 mg/dL (70-99) White Blood Count 6.5 x10^3/uL (4.0-11.0) Red Blood Count 5.67 x10^6/uL (3.50-5.40) Hemoglobin 13.5 g/dL (12.0-15.5) Hematocrit 41.9 % (36.0-47.0) Mean Corpuscular Volume 74 fL (79-100) Mean Corpuscular Hemoglobin 24 pg (25-35) Mean Corpuscular Hemoglobin Concent 32 g/dL (31-37) Red Cell Distribution Width 21.9 % (11.5-14.5) Platelet Count 311 x10^3/uL (140-400) Sodium Level 142 mmol/L (136-145) Potassium Level 3.9 mmol/L (3.5-5.1) Chloride Level 107 mmol/L (98-107) Carbon Dioxide Level 25 mmol/L (21-32) Anion Gap 10 (6-14) Blood Urea Nitrogen 3 mg/dL (7-20) Creatinine 0.6 mg/dL (0.6-1.0) Estimated GFR (Cockcroft-Gault) 107.2 Glucose Level 91 mg/dL (70-99) Calcium Level 8.8 mg/dL (8.5-10.1) Micro Microbiology 07/01/21 Urine Culture - Final, Complete 07/01/21 Blood Culture - Final, Complete NO GROWTH AFTER 5 DAYS Objective Assessment Sepsis Coag neg staph bacteremia present on admission 1 out of 4 bottleslikely contaminant Hypoxia History of recurrent bacteremia Leukocytosis Chronic nonhealing wounds involving sacrum ,buttocks and bilateral trochanters chronic 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 History of MDRO Factor V Leyden deficiency History of DVT and PE Protein calorie malnutrition Generalized debility Nephrolithiasis Recent hosp [facility] antibiotics before admission,records are pending at this time Plan Plan of Care change zosyn to po augmentin off load overall prognosis poor ok to d/c to [facility] ROSEMARY THOMAS MD Jul 07, 2021 08:16
[2021-07-07] MEDS: BUDESONIDE 0.5 MG/2 ML NEBU. NEB SCH (08:46)
[2021-07-07] MEDS: LIDOCAINE 2% TOPICAL JELLY 30GM TUBE. TP SCH (09:00)
[2021-07-07] MEDS: ZINC SULFATE 220 MG CAPSULE. PO SCH ×2 (09:00→10:39)
[2021-07-07] MEDS: LACTOBACILLUS RHAMNOSUS GG 1 CAPSULE. PO SCH ×2 (09:00→10:38)
[2021-07-07] MEDS: PRENATAL MULTIVITAMIN TABLET. PO SCH ×2 (09:00→10:34)
[2021-07-07] MEDS: CHOLECALCIFEROL (VITAMIN D3) 1,000 UNIT TABLET PO SCH ×2 (09:00→10:34)
[2021-07-07] MEDS: NYSTATIN TOPICAL POWDER 15GM BOTTLE. TP SCH ×2 (09:00→14:00)
[2021-07-07] MEDS: BACLOFEN 10 MG TABLET. PO SCH ×3 (09:00→13:03)
[2021-07-07] MEDS: FAMOTIDINE 20 MG TABLET. PO SCH ×2 (09:00→10:35)
[2021-07-07] MEDS: CETIRIZINE HCL 10 MG TABLET. PO SCH ×2 (09:00→10:40)
[2021-07-07] MEDS: MIRABEGRON 25 MG TAB.ER.24H PO SCH ×2 (09:00→10:38)
[2021-07-07] MEDS: OXYBUTYNIN CHLORIDE 5 MG TABLET PO SCH ×3 (09:00→13:53)
[2021-07-07] MEDS: ASCORBIC ACID 500 MG TABLET PO SCH ×2 (09:00→10:40)
[2021-07-07] MEDS: SENNOSIDES 8.6 MG TABLET PO SCH ×2 (09:00→10:33)
[2021-07-07] MEDS: DULoxetine HCL 30 MG CAPSULE.DR PO SCH ×2 (09:00→10:36)
[2021-07-07] MEDS: GENTAMICIN 0.1% TOPICAL OINTMENT 15GM TUBE. TP SCH (09:00)
[2021-07-07] MEDS: DANTROLENE SODIUM 25 MG CAPSULE PO SCH ×3 (09:00→13:03)
[2021-07-07] MEDS: APIXABAN 5 MG TABLET. PO SCH ×2 (09:00→10:36)
[2021-07-07] MEDS: FERROUS SULFATE 325 MG TABLET. PO SCH (10:39)
[2021-07-07 11:00] VITALS: BP 140/94
--- NOTE | 2021-07-07 11:19 | NUR ---
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 Attempted to crush all pills this morning and mixed with pudding. Patient made an ugly face when attempted first bite and then she didn't want to take anymore. I threw them away and non administered the morning medications that were already extremely late. I will attempt other medications throughout the day. Patient not interactive this morning as usual for her baseline in the past. Will continue to monitor for changes.
[2021-07-07] MEDS: ANTI-COAG MONITOR BY PHARMACY. MC PRN (11:21)
--- NOTE | 2021-07-07 12:30 | PN ---
DATE: 07/07/2021 SUBJECTIVE: The patient is resting, slightly up in a [place] bed, in no apparent respiratory distress. She is awake, alert. On questioning her, denied any complaint. Nursing staff stated, however, that she is barely eating. She is refusing her medication. So far, her urine culture showed 3 or more organisms. Her blood culture grew out Staphylococcus epidermidis in one of multiple sets, likely contamination. On examining her, she was pale, cachectic. The rest of clinical exam is stable. Her intake was incompletely recorded, output was 2450. LABORATORY DATA: Her lab work this morning showed a serum sodium 142, potassium 3.9, chloride 107, bicarbonate 25, anion gap of 10, BUN 3, creatinine 0.6. Estimated GFR was 170 mL per minute. Her glucose 91, calcium was 8.8. Her white cell count was 6500, hemoglobin 13.5, hematocrit 42, MCV 74 and platelet count 311,000. ASSESSMENT: 1. Sepsis. 2. Coagulase-negative Staphylococcus bacteremia, present on admission in 11/11, likely contaminant. 3. Acute hypoxic respiratory failure, resolved. 4. Chronic nonhealing sacral and bilateral gluteal decubitus ulcer. 5. Advanced multiple sclerosis with quadriplegia and fixed flexion contracture for all 4 limbs. 6. Factor V Leiden deficiency. 7. Severe protein-calorie malnutrition. 8. Chronic obstructive pulmonary disease. 9. Nephrolithiasis. 10. Hypernatremia that has resolved. PLAN: To continue with IV Zosyn. Continue with all her other medication. Her vancomycin was discontinued. Continue with wound care. JUJU/MARIAJOSE DR: Clari TID: [id number]
[2021-07-07] MEDS ORDERED: OXYC5TAB2 PO (12:46)
[2021-07-07] MEDS: ACETAMINOPHEN 325 MG TABLET. PO PRN (14:19)
--- NOTE | 2021-07-07 16:12 | NUR ---
Discharge Note: [facility] [place] Discharge instructions and discharge home medications reviewed with nurse at [facility] and a copy given. All questions have been answered and understanding verbalized. The following instructions and handouts were given: copy of chart and discharge instructions. Discontinued lines and drains: Triple Lumen Central IJ discontinued intact. Patient discharged to [facility] with Transport Personnel via [facility]
== END 2021-07-07 16:14 | DRG 871 ==
LOC: ER 13:26 → ED HOLD 18:25 → 5 NORTH 18:27
PROVIDERS: ADMIT Internal Medicine; ATTEND Internal Medicine
PROC: 02HV33Z Insertion of Infusion Device into Superior Vena Cava, Percutaneous Approach (ICD-10-PCS; principal; 2021-07-01)
DX: A41.2 Sepsis due to unspecified staphylococcus (principal); L89.154 Pressure ulcer of sacral region, stage 4; J96.01 Acute respiratory failure with hypoxia; E43 Unspecified severe protein-calorie malnutrition; R53.2 Functional quadriplegia; D68.51 Activated protein C resistance; E87.0 Hyperosmolality and hypernatremia; J98.11 Atelectasis; N39.0 Urinary tract infection, site not specified; R64 Cachexia; B96.89 Other specified bacterial agents as the cause of diseases classified elsewhere; D50.9 Iron deficiency anemia, unspecified; E83.42 Hypomagnesemia; E87.6 Hypokalemia; G35 Multiple sclerosis; I48.91 Unspecified atrial fibrillation; J44.9 Chronic obstructive pulmonary disease, unspecified; L89.319 Pressure ulcer of right buttock, unspecified stage; L89.329 Pressure ulcer of left buttock, unspecified stage; N20.0 Calculus of kidney; N31.9 Neuromuscular dysfunction of bladder, unspecified; Z79.01 Long term (current) use of anticoagulants; Z86.711 Personal history of pulmonary embolism; Z86.718 Personal history of other venous thrombosis and embolism; Z87.440 Personal history of urinary (tract) infections; Z87.442 Personal history of urinary calculi; Z87.891 Personal history of nicotine dependence; Z93.3 Colostomy status; F32.9 Major depressive disorder, single episode, unspecified; F41.9 Anxiety disorder, unspecified; K21.9 Gastro-esophageal reflux disease without esophagitis; K57.90 Diverticulosis of intestine, part unspecified, without perforation or abscess without bleeding; Z20.822 Contact with and (suspected) exposure to COVID-19; Z68.20 Body mass index [BMI] 20.0-20.9, adult; I48.0 Paroxysmal atrial fibrillation
CPT/HCPCS: 36415; 36600; 71045; 80048; 80053; 80076; 80202; 81001; 81025; 82805; 82962; 83605; 83735; 85007; 85025; 85027; 87015; 87040; 87077; 87086; 87205; 93005; 94640; 96361; 96365; 96366; J1885; J2543; J3370; J3480; J7030; J7040; J7050; J7060; U0003; U0005; 92526-GN; 92610-GN; 99291-25; G0378; J0775; J7626